=== PATIENT | female | born 1945 ===

== ENCOUNTER 2018-03-30 14:41 | Inpatient (IN) | payer MEDICARE ==
--- NOTE | 2018-03-30 17:11 | RAD ---
HISTORY: fall COMPARISON: 02/11/2010 FINDINGS: LUNGS: No active pulmonary disease. PLEURA: No significant pleural effusion identified, no pneumothorax apparent. CARDIOVASCULAR: Normal. OSSEOUS STRUCTURES: No significant abnormalities. VISUALIZED UPPER ABDOMEN: Normal. OTHER FINDINGS: None. IMPRESSION: No active disease.
--- NOTE | 2018-03-30 17:13 | CT ---
PROCEDURE: CT HEAD WITHOUT CONTRAST. HISTORY: fall COMPARISON: None available. TECHNIQUE: Axial computed tomography images were obtained through the head/brain without intravenous contrast. Radiation dose: Total exam DLP = 892.77 mGy-cm. This CT exam was performed using one or more of the following dose reduction techniques: Automated exposure control, adjustment of the mA and/or kV according to patient size, and/or use of iterative reconstruction technique. FINDINGS: HEMORRHAGE: No intracranial hemorrhage. BRAIN: No mass effect or edema. No atrophy or chronic microvascular ischemic changes. VENTRICLES: Unremarkable. No hydrocephalus. CALVARIUM: Unremarkable. PARANASAL SINUSES: Unremarkable as visualized. No significant inflammatory changes. MASTOID AIR CELLS: Unremarkable as visualized. No inflammatory changes. OTHER FINDINGS: None. IMPRESSION: No acute intracranial hemorrhage.
[2018-03-30 18:21] LABS: BASO # 0.1 K/uL (0.0-0.2); BASO % 0.7 % (0.0-2.0); EOS % 0.1 % (0.0-4.0); HEMOGLOBIN 9.9 g/dL (12.0-16.0); LYMPH # 1.1 K/uL (1.0-4.3); LYMPH % 6.8 % (20.0-40.0); MEAN CORPUSCULAR HEMOGLOBIN 26.9 pg (27.0-31.0); MEAN CORPUSCULAR HGB CONC 32.4 g/dL (33.0-37.0); MEAN PLATELET VOLUME 7.8 fl (7.2-11.7); MONO # 1.2 K/uL (0.0-0.8); MONO % 7.5 % (0.0-10.0); NEUT # 13.9 K/uL (1.8-7.0); NEUT % 84.9 % (50.0-75.0); PLATELET COUNT 442 K/uL (130-400); RBC 3.67 Mil/uL (3.80-5.20); WHITE BLOOD COUNT 16.4 K/uL (4.8-10.8)
[2018-03-30 18:24] LABS: VENOUS BLOOD GAS BASE EXCESS -18.5 mmol/L (0.0-2.0); VENOUS BLOOD GAS PCO2 93 mmHg (40-60); VENOUS BLOOD GAS PO2 39 mm/Hg (30-55); VENOUS BLOOD PH 6.86 (7.32-7.43)
[2018-03-30] MEDS ORDERED: Piperacillin/Tazobact 3.375 GM in Sodium Chloride 0.9% 100 ML IVPB STA (18:30)
[2018-03-30] MEDS ORDERED: Sodium Chloride 0.9% 2,000 ML IV STA (18:30)
[2018-03-30] MEDS ORDERED: Piperacillin/Tazobact 3.375 gm Inj IVPB ONE ×2 (18:35→22:46)
[2018-03-30] MEDS ORDERED: Vancomycin 1 g Inj ONE ×2 (18:35→21:11)
--- NOTE | 2018-03-30 18:47 | ED PDOC ---
Lower Extremity Pain/Injury Time Seen by Provider: 03/30/18 15:16 Chief Complaint (Nursing): Lower Extremity Problem/Injury Chief Complaint (Provider): Right foot infection, fall History Per: Patient History/Exam Limitations: no limitations Onset/Duration Of Symptoms: Hrs Current Symptoms Are (Timing): Still Present Additional Complaint(s): 72 yo female with history of HTN and DM which she has not taken medication for in the last 8 months. Pt states she has been feeling well. Pt states she got up quick and her foot got caught on something resulting in a fall. Pt states she was unable to get up but her son came home approx 1 hour later. According to EMS pt had a lot of stuff in her home making it difficult to move in home. Pt reports that her foot has been bothering her for awhile. PT states last summer she was seen in a hospital and was going to rehab with wound care. Pt states it was going better but than she was not taking care of hit. Pt denies chest pain, SOB, abdominal pain, N/V/D. Past Medical History Reviewed: Historical Data, Nursing Documentation, Vital Signs Vital Signs: Last Vital Signs Temp 99 F 03/30/18 14:43 Pulse 118 H 03/30/18 14:43 Resp 16 03/30/18 14:43 BP 115/66 03/30/18 14:43 Pulse Ox 99 03/30/18 14:43 - Medical History PMH: Diabetes, HTN - Surgical History Surgical History: No Surg Hx - Family History Family History: States: No Known Family Hx - Living Arrangements Living Arrangements: With Family - Social History Current smoker - smoking cessation education provided: No Alcohol: None Drugs: Denies - Allergies Allergies/Adverse Reactions: Allergies Allergy/AdvReac Type Severity Reaction Status Date / Time No Known Allergies Allergy Verified 03/30/18 14:43 Review of Systems ROS Statement: Except As Marked, All Systems Reviewed And Found Negative Constitutional: Negative for: Fever, Chills Musculoskeletal: Positive for: Foot Pain (Bilateral, R > L ) Physical Exam - Reviewed Nursing Documentation Reviewed: Yes Vital Signs Reviewed: Yes - Physical Exam Appears: Positive for: Well, Non-toxic, No Acute Distress Head Exam: Positive for: ATRAUMATIC, NORMAL INSPECTION, NORMOCEPHALIC Skin: Positive for: Warm. Negative for: Normal Color Eye Exam: Positive for: Normal appearance ENT: Positive for: Normal ENT Inspection Neck: Positive for: Normal, Painless ROM Cardiovascular/Chest: Positive for: Regular Rate, Rhythm Respiratory: Positive for: Normal Breath Sounds. Negative for: Accessory Muscle Use, Respiratory Distress Gastrointestinal/Abdominal: Positive for: Normal Exam, Soft. Negative for: Tenderness Back: Positive for: Normal Inspection Extremity: Positive for: Normal ROM, Swelling (Bilateral lower leg edema with yellow plaques, (+) necrotic lesions on right foot approx 8cm in diameter x 2, and smaller one on the left foot ) Neurologic/Psych: Positive for: Alert, Oriented - Laboratory Results Result Diagrams: 03/30/18 18:18 03/30/18 18:18 - ECG O2 Sat by Pulse Oximetry: 99 Pulse Ox Interpretation: Normal Medical Decision Making Medical Decision Making: Abnormal VBG with elevated lactate, low sodium and metabolic acidosis. AccuCheck over 500. ABG ordered, blood cultures, mag, phosphorus - Dr. Fraire aware. Asprin ordered. ABG - Normal lactate. Podiatry at bedside. I/D of area. Would cultures obtained. Dr. Fraire will discussed with cardiology. Dr. Fraire discussed with Dr. Nuñez for ICU. Duplex pending. Disposition - Clinical Impression Clinical Impression: NSTEMI (non-ST elevated myocardial infarction), Gas gangrene, Uncontrolled diabetes mellitus, Sepsis - Patient ED Disposition Is Patient to be Admitted: Yes - Disposition Disposition Time: 20:49 Condition: FAIR Forms: [employer] ([place]) - Pt Status Changed To: Hospital Disposition Of: Inpatient - Admit Certification Admit to Inpatient:: After my assessment, the patient will require hospitalization for at least two midnights. This is because of the severity of symptoms shown, intensity of services needed, and/or the medical risk in this patient being treated as an outpatient. - POA Present On Arrival: None
[2018-03-30] MEDS ORDERED: Povidone Iodine Topical 10% Sol ONE (19:05)
[2018-03-30 19:06] LABS: ABG ALLEN TEST YES; ARTERIAL BLOOD GAS HCO3 26.7 mmol/L (21-28); ARTERIAL BLOOD GAS O2 SAT 97.9 % (95-98); ARTERIAL BLOOD GAS PCO2 37 mm/Hg (35-45); ARTERIAL BLOOD GAS PH 7.46 (7.35-7.45); ARTERIAL BLOOD GAS PO2 61 mm/Hg (80-100); ARTERIAL BLOOD GAS TCO2 27.4 mmol/L (22-28)
[2018-03-30 19:24] LABS: ALB/GLOB RATIO 0.7 (1.0-2.1); ALBUMIN 2.9 g/dL (3.5-5.0); ALT/SGPT 29 U/L (9-52); AST/SGOT 39 U/L (14-36); B-TYPE NATRIURETIC PEPTIDE 4740 pg/ml (0-900); BLOOD UREA NITROGEN 23 mg/dl (7-17); CALCIUM 8.8 mg/dL (8.4-10.2); GFR AFRICAN-AMERICAN > 60; GFR NON-AFRICAN AMERICAN > 60
[2018-03-30 19:38] LABS: LYMPHOCYTE 4 % (20-50); MONOCYTE 1 % (0-10); MYELOCYTE 2 % (0-0); NEUTROPHIL 91 % (42-75); REACTIVE LYMPHOCYTES 2 % (0-0); TOTAL CELLS COUNTED 100
[2018-03-30 19:40] LABS: HYPOCHROMIC SLIGHT; STOMATOCYTES SLIGHT
[2018-03-30] MEDS ORDERED: Insulin Regular 100 units/ml SC STA ×2 (19:40→21:53)
[2018-03-30] MEDS ORDERED: Insulin Regular 100 units/ml IVP STA (19:40)
[2018-03-30 19:41] LABS: PLATELET ESTIMATE NORMAL (NORMAL)
[2018-03-30] MEDS ORDERED: Insulin Regular 100 units/ml ONE ×2 (20:07→22:03)
--- NOTE | 2018-03-30 20:10 | CP.PCM.CON ---
History of Present Illness - History of Present Illness History of Present Illness: Podiatry Consult note: Dr. Smith 72 year old non-compliant female patient with PMHx of DM, and HTN was seen and evaluated at bedside for bilateral lower extremity erythema, edema and multiple wounds. Patient reports that she has always followed up at [facility] regarding to her lower extremities. Patient states that this time she fell in her house and was not able to get up; called the ambulance who brought her to [place]. Patient states that she was discharged from the rehab in [place] last year. Reports that her son was helping her dressing changes at home until that became a hassle for the son and stopped helping. Reports that she always had wounds on the feet but they have progressively gotten worst over time. Reports that she has not had any course of abx recently. Reports that she has not applied any dressing to her LE as well. Reports that her right foot causes her more pain than the left. Reports that the pain is more prominent when she walks on the bottom of the foot. Denies any pain during resting. Denies of having any recent F/N/V/C/SOB/CP/headache. No other pedal complains at this time. PMHx: DM, HTN PSHx: Denies Allergies: N.K.D.A SHx: Denies smoking, EtOH or illicit drug usage, lives home alone Meds: reports non-compliance with medications PMD: Dr. Holt Review of Systems - Constitutional Constitutional: As Per HPI Past Patient History - Past Social History Smoking Status: Never Smoked - CARDIAC Hx Hypertension: Yes - PSYCHIATRIC Hx Substance Use: No Meds Allergies/Adverse Reactions: Allergies Allergy/AdvReac Type Severity Reaction Status Date / Time No Known Allergies Allergy Verified 03/30/18 14:43 - Medications Medications: Current Medications Sodium Chloride (Sodium Chloride 0.9%) 2,000 mls @ 1,000 mls/hr IV .Q2H STA Stop: 03/30/18 20:29 Last Admin: 03/30/18 19:28 Dose: 1,000 mls/hr Physical Exam - Constitutional Appears: Well, Non-toxic, No Acute Distress - Extremities Exam Additional comments: Bilateral LE exam VASC: DP/PT pulses are non-palpable bilaterally, Cap refill time: < 3 sec to all digits, Temp gradient: warm to warm from proximal to distal (R>L), non- pitting edema noted extending from foot proximally to the mid leg level bilaterally DERM: Multiple wounds on bilateral lower extremity: severe malodor present from bilateral LE with hyperkeratotic sloughing of the skin which extends from mid leg distally to the feet bilaterally, erythema noted extending from mid leg to feet on bilateral LE (R>L) Right: Circular Necrotic wound measuring approx. 4.5 cm x 4.5 cm x 0.5 cm with sloughing of the soft tissue and fat pad atrophy noted at the base of the 1st metatarsal, macerated bullae on the medial aspect of the right 1st MTPJ that is fluctuant surrounded by thick hyperkeratotic skin sloughing, Second necrotic wound present at the plantar aspect of the right heel measuring approx 7.5 cm x 5.5 cm x 0.5 cm with gerber-wound erythema and epidermal layer sloughing on the lateral side, no active drainage from both the wounds, no purulence, no tunneling or tracking Left: Circular necrotic wound measuring approx 2.5 cm x 2.5 cm x 0.3 cm present on the plantar aspect of the 5th metatarsal head, no tunneling, no tracking, no undermining, no active drainage NEURO: Protective sensation grossly diminished ORTHO: mild pain on palpation of the wound and PROM of the hallux at the 1st MTPJ, diffuse pain on palpation of the plantar aspect of the foot b/l (R>L), no pain on palpation of the calf b/l - Neurological Exam Neurological exam: Alert, Oriented x3 - Psychiatric Exam Psychiatric exam: Normal Affect, Normal Mood Results - Vital Signs Recent Vital Signs: Last Vital Signs Temp 99 F 03/30/18 14:43 Pulse 118 H 03/30/18 14:43 Resp 16 03/30/18 14:43 BP 115/66 03/30/18 14:43 Pulse Ox 99 03/30/18 18:58 - Labs Result Diagrams: 03/30/18 18:18 03/30/18 18:18 Labs: Laboratory Results - last 24 hr 03/30/18 03/30/18 03/30/18 18:18 18:18 18:20 WBC 16.4 H RBC 3.67 L Hgb 9.9 L Hct 30.4 L MCV 83.0 MCH 26.9 L MCHC 32.4 L RDW 14.0 Plt Count 442 H MPV 7.8 Neut % (Auto) 84.9 H Lymph % (Auto) 6.8 L [place] % (Auto) 7.5 Eos % (Auto) 0.1 Baso % (Auto) 0.7 Neut # (Auto) 13.9 H Lymph # (Auto) 1.1 [place] # (Auto) 1.2 H Eos # (Auto) 0.0 Baso # (Auto) 0.1 Neutrophils % (Manual) 91 H Lymphocytes % (Manual) 4 L Reactive Lymphs % 2 H Monocytes % (Manual) 1 Myelocytes % 2 H Platelet Estimate Normal Hypochromasia (manual) Slight Stomatocytes Slight pCO2 pO2 39 HCO3 ABG pH ABG Total CO2 ABG O2 Saturation ABG Base Excess Reilly Test ABG Potassium VBG pH 6.86 L* VBG pCO2 93 H* VBG HCO3 8.8 VBG Total CO2 19.5 L VBG O2 Sat (Calc) 56.3 VBG Base Excess -18.5 L A-a O2 Difference Glucose 599 H* Lactate 3.0 H FiO2 21.0 Crit Value Called To Shama france Crit Value Called By [id number] Crit Value Read Back Y Blood Gas Notified Time 1824 Sodium 135 106.0 L* Potassium 4.6 Chloride 96 L 92.0 L Carbon Dioxide 24 Anion Gap 20 BUN 23 H Creatinine 0.6 L Est GFR ( Amer) > 60 Est GFR (Non-Af Amer) > 60 Random Glucose 573 H* Calcium 8.8 Phosphorus Magnesium Total Bilirubin 1.0 AST 39 H ALT 29 Alkaline Phosphatase 121 Total Creatine Kinase 744 H Troponin I 4.5500 H* NT-Pro-B Natriuret Pep 4740 H Total Protein 7.2 Albumin 2.9 L Globulin 4.3 H Albumin/Globulin Ratio 0.7 L Arterial Blood Potassium 03/30/18 03/30/18 18:38 18:45 WBC RBC Hgb Hct MCV MCH MCHC RDW Plt Count MPV Neut % (Auto) Lymph % (Auto) [place] % (Auto) Eos % (Auto) Baso % (Auto) Neut # (Auto) Lymph # (Auto) [place] # (Auto) Eos # (Auto) Baso # (Auto) Neutrophils % (Manual) Lymphocytes % (Manual) Reactive Lymphs % Monocytes % (Manual) Myelocytes % Platelet Estimate Hypochromasia (manual) Stomatocytes pCO2 37 pO2 61 L HCO3 26.7 ABG pH 7.46 H ABG Total CO2 27.4 ABG O2 Saturation 97.9 ABG Base Excess 2.5 Reilly Test Yes ABG Potassium 3.9 VBG pH VBG pCO2 VBG HCO3 VBG Total CO2 VBG O2 Sat (Calc) VBG Base Excess A-a O2 Difference 42.0 Glucose 588 H* Lactate 1.7 FiO2 21.0 Crit Value Called To Shama france Crit Value Called By [id number] Crit Value Read Back Y Blood Gas Notified Time 190 Sodium 133.0 Potassium Chloride 98.0 Carbon Dioxide Anion Gap BUN Creatinine Est GFR ( Amer) Est GFR (Non-Af Amer) Random Glucose Calcium Phosphorus 2.8 Magnesium 1.7 Total Bilirubin AST ALT Alkaline Phosphatase Total Creatine Kinase Troponin I NT-Pro-B Natriuret Pep Total Protein Albumin Globulin Albumin/Globulin Ratio Arterial Blood Potassium 3.9 Assessment & Plan - Assessment and Plan (Free Text) Assessment: 72 year old female patient with PMHx of DM, HTN was evaluated for 1). 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 multiple necrotic wounds b/l LE 3). Cellulitis Plan: Patient seen and evaluated Discussed patient in details with attending Dr. Smith Labs, vitals and charts reviewed - afebrile, tachycardic, WBC @ 16.4 X-rays of the bilateral LE ordered/reviewed - Diffuse radiolucency on the medial aspect of the 1st MTPJ of the right foot within the soft tissue consistent with soft tissue emphysema Bedside I&D performed - Evacuated approx 15cc of purulent drainage from the medial aspect of the 1st MTPJ; severe malodor with bubbles during I&D - Flushed with saline infused with betadine Deep wound cultures taken Bilateral LE clenaed with betadine, saline Incision site left open and packed with idoform packing and dressed all wounds with betadine, DSD Vanc, zosyn in the ER Venous duplex - no evidence of DVT New foot and tib-fib views ordered s/p bedside I&D ESR ID consult - f/u recs Medical management as per Hospitalist Thank you for the podiatry consult and allowing to take part in patient care Podiatry will continue to monitor patient closely - plan for OR tomorrow/Sunday for I&D if condition worsens - Date & Time Date: 03/30/18 Time: 21:48
[2018-03-30] MEDS ORDERED: Enoxaparin 60 mg Syringe SC STA (20:59)
--- NOTE | 2018-03-30 21:06 | US ---
EXAM: US Duplex Bilateral Lower Extremity Veins CLINICAL HISTORY: 72 years old, female; Pain; Leg, lower; Bilateral; Additional info: Lower leg edema TECHNIQUE: Real-time duplex ultrasound scan of the bilateral lower extremity veins integrating B-mode two-dimensional vascular structure, Doppler spectral analysis, color flow Doppler imaging and compression. COMPARISON: No relevant prior studies available. FINDINGS: Right deep veins: No DVT in the right common femoral, femoral, proximal deep femoral or popliteal veins. The veins demonstrate normal flow. Study is limited, technologist states patient cannot tolerate compression and augmentation maneuvers. Left deep veins: No DVT in the left common femoral, femoral, proximal deep femoral or popliteal veins. The veins demonstrate normal flow. Study is limited, technologist states patient cannot tolerate compression and augmentation maneuvers. Soft tissues: No acute findings. IMPRESSION: No evidence of deep venous thrombosis in the visualized veins of the bilateral lower extremities. The veins demonstrate patent venous flow. Study is limited, technologist states patient cannot tolerate compression and augmentation maneuvers.
--- NOTE | 2018-03-30 21:20 | CP.PCM.CON ---
History of Present Illness - History of Present Illness History of Present Illness: CC: Fall/ICU for sepsis/BLE gangrene/Elevated trop HPI: This is a 72 y/o female with DM2 and HTN who is not taking any medications. She had a mechanical fall today, and was unable to get up and when her son came, then called EMS. Did not hit her head or lose consciousness. Patient notes that she had issues with foot wounds in the past and was in the hospital last summer, but since discharge has not been following up with her medical care. Denies CP/SOB. Denies f/c/n/v/d. ROS: 14 systems reviewed, negative other than HPI MHx: DM2, HTN SHx: None Allergies: NKDA Medications: None Family Hx: Patient states no significant history as far as she knows Social Hx: Lives along but son is there often, no tobacco, no EtOH Surrogate: Son Past Patient History - Past Social History Alcohol: None Drugs: Denies - CARDIAC Hx Hypertension: Yes - PSYCHIATRIC Hx Substance Use: No Meds Allergies/Adverse Reactions: Allergies Allergy/AdvReac Type Severity Reaction Status Date / Time No Known Allergies Allergy Verified 03/30/18 14:43 - Medications Medications: Current Medications Acetaminophen (Tylenol 325mg Tab) 650 mg PO Q6H PRN PRN Reason: Pain, Mild (1-3) Acetaminophen (Tylenol 325mg Tab) 650 mg PO Q6H PRN PRN Reason: Fever >100.4 F Aspirin (Aspirin) 325 mg PO DAILY SARAH Atorvastatin Calcium (Lipitor) 40 mg PO DAILY [facility] Piperacillin Sod/Tazobactam (Sod 3.375 gm/ Sodium Chloride) 100 mls @ 100 mls/ hr IVPB Q6 SARAH PRN Reason: Protocol Vancomycin HCl 1 gm/ Sodium (Chloride) 250 mls @ 166.667 mls/hr IVPB Q12 SARAH PRN Reason: Protocol Insulin Detemir (Levemir) 10 units SC HS SARAH Insulin Human Lispro (Humalog) 0 units SC ACHS SARAH PRN Reason: Protocol Metoprolol Tartrate (Lopressor) 25 mg PO Q12 SARAH Physical Exam - Constitutional Appears: No Acute Distress - Head Exam Head Exam: ATRAUMATIC, NORMOCEPHALIC - Eye Exam Eye Exam: EOMI, PERRL - ENT Exam ENT Exam: Mucous Membranes Moist - Neck Exam Neck exam: Positive for: Full Rom - Respiratory Exam Respiratory Exam: Clear to Auscultation Bilateral, NORMAL BREATHING PATTERN - Cardiovascular Exam Cardiovascular Exam: Tachycardia, REGULAR RHYTHM, +S1, +S2, Systolic Murmur - GI/Abdominal Exam GI & Abdominal Exam: Normal Bowel Sounds, Soft - Extremities Exam Additional comments: b/l LE with dry gangrene and gas per report, now under dressing; appear edemetous - Neurological Exam Neurological exam: Alert, CN II-XII Intact, Oriented x3 - Psychiatric Exam Psychiatric exam: Normal Affect, Normal Mood - Skin Additional comments: Skin changes in b/l LE as noted Results - Vital Signs Recent Vital Signs: Last Vital Signs Temp 99 F 03/30/18 14:43 Pulse 88 03/30/18 20:25 Resp 16 03/30/18 14:43 BP 115/66 03/30/18 14:43 Pulse Ox 99 03/30/18 20:49 - Labs Result Diagrams: 03/30/18 18:18 03/30/18 18:18 Labs: Laboratory Results - last 24 hr 03/30/18 03/30/18 03/30/18 18:18 18:18 18:20 WBC 16.4 H RBC 3.67 L Hgb 9.9 L Hct 30.4 L MCV 83.0 MCH 26.9 L MCHC 32.4 L RDW 14.0 Plt Count 442 H MPV 7.8 Neut % (Auto) 84.9 H Lymph % (Auto) 6.8 L [place] % (Auto) 7.5 Eos % (Auto) 0.1 Baso % (Auto) 0.7 Neut # (Auto) 13.9 H Lymph # (Auto) 1.1 [place] # (Auto) 1.2 H Eos # (Auto) 0.0 Baso # (Auto) 0.1 Neutrophils % (Manual) 91 H Lymphocytes % (Manual) 4 L Reactive Lymphs % 2 H Monocytes % (Manual) 1 Myelocytes % 2 H Platelet Estimate Normal Hypochromasia (manual) Slight Stomatocytes Slight pCO2 pO2 39 HCO3 ABG pH ABG Total CO2 ABG O2 Saturation ABG Base Excess Reilly Test ABG Potassium VBG pH 6.86 L* VBG pCO2 93 H* VBG HCO3 8.8 VBG Total CO2 19.5 L VBG O2 Sat (Calc) 56.3 VBG Base Excess -18.5 L A-a O2 Difference Glucose 599 H* Lactate 3.0 H FiO2 21.0 Crit Value Called To Shama france Crit Value Called By [id number] Crit Value Read Back Y Blood Gas Notified Time 182 Sodium 135 106.0 L* Potassium 4.6 Chloride 96 L 92.0 L Carbon Dioxide 24 Anion Gap 20 BUN 23 H Creatinine 0.6 L Est GFR ( Amer) > 60 Est GFR (Non-Af Amer) > 60 Random Glucose 573 H* Calcium 8.8 Phosphorus Magnesium Total Bilirubin 1.0 AST 39 H ALT 29 Alkaline Phosphatase 121 Total Creatine Kinase 744 H Troponin I 4.5500 H* NT-Pro-B Natriuret Pep 4740 H Total Protein 7.2 Albumin 2.9 L Globulin 4.3 H Albumin/Globulin Ratio 0.7 L Arterial Blood Potassium 03/30/18 03/30/18 18:38 18:45 WBC RBC Hgb Hct MCV MCH MCHC RDW Plt Count MPV Neut % (Auto) Lymph % (Auto) [place] % (Auto) Eos % (Auto) Baso % (Auto) Neut # (Auto) Lymph # (Auto) [place] # (Auto) Eos # (Auto) Baso # (Auto) Neutrophils % (Manual) Lymphocytes % (Manual) Reactive Lymphs % Monocytes % (Manual) Myelocytes % Platelet Estimate Hypochromasia (manual) Stomatocytes pCO2 37 pO2 61 L HCO3 26.7 ABG pH 7.46 H ABG Total CO2 27.4 ABG O2 Saturation 97.9 ABG Base Excess 2.5 Reilly Test Yes ABG Potassium 3.9 VBG pH VBG pCO2 VBG HCO3 VBG Total CO2 VBG O2 Sat (Calc) VBG Base Excess A-a O2 Difference 42.0 Glucose 588 H* Lactate 1.7 FiO2 21.0 Crit Value Called To Shama france Crit Value Called By [id number] Crit Value Read Back Y Blood Gas Notified Time 190 Sodium 133.0 Potassium Chloride 98.0 Carbon Dioxide Anion Gap BUN Creatinine Est GFR ( Amer) Est GFR (Non-Af Amer) Random Glucose Calcium Phosphorus 2.8 Magnesium 1.7 Total Bilirubin AST ALT Alkaline Phosphatase Total Creatine Kinase Troponin I NT-Pro-B Natriuret Pep Total Protein Albumin Globulin Albumin/Globulin Ratio Arterial Blood Potassium 3.9 - EKG Data EKG Interpreted by: Myself EKG shows normal: Sinus rhythm Rate: Normal - EKG Data EKG comments: no TENZIN or STD - Imaging and Cardiology CT scan - head Status: Image reviewed by me (no acute findings), Report reviewed by me Chest x-ray Status: Image reviewed by me, Report reviewed by me (no acute findings) Venous US Status: Report reviewed by me (no DVT) Assessment & Plan (1) Foot infection Assessment and Plan: 72 y/o female with HTN and DM2 and poor medical f/u who presents with b/l LE infection/dry gangrene/sepsis as well as elevated troponins. 1) b/l LE infection/gangrene/sepsis -Cont Vanc and Zosyn -Seen by podiatry, I&D done, cultures sent, possible OR in AM; will keep NPO after MN -f/u cultures -ESR in AM -ID consult in AM 2) Elevated trop -- per cardiology, not treating as NSTEMI -Trend trop q8h x3 -EKG in AM -Echo in AM -Cont ASA 325 daily, will start Lipitor 40 mg daily, will start metoprolol 25 mg q12h -Received 50 mg Lovenox subq x1 in ER; will hold further lovenox given possibility of OR in AM -Will hold Plavix for now -Cardiology consult to see patient in AM 3) DM2, poorly controlled -q6h accuchecks -SSI -Will start low dose (10 U) levemir tonight given very elevated gluc -DM2 diet tonight, then NPO after MN 4) DVT PPx -- received Lovenox tonight, re-assess based on plan for OR in AM Status: Acute (2) Gas gangrene Status: Acute (3) Sepsis Status: Acute (4) Elevated troponin Status: Acute (5) Uncontrolled diabetes mellitus Status: Acute (6) DVT prophylaxis Status: Acute
[2018-03-30] MEDS ORDERED: Iodixanol 320 MG/ML 100 ML BOTTLE IV ONE (21:31)
[2018-03-30] MEDS ORDERED: Sodium Chloride 0.9% 50 ML IV ONE (21:32)
[2018-03-30] MEDS: Piperacillin/Tazobact 3.375 GM in Sodium Chloride 0.9% 100 ML IVPB SCH (22:00)
[2018-03-30] MEDS ORDERED: Insulin Detemir 100 Units/ml Inj SC SCH (22:00)
[2018-03-30] MEDS: Insulin Lispro (humaLOG) 100 Units/ml Inj SC SCH (23:00)
--- NOTE | 2018-03-30 23:57 | CT ---
EXAM: CT Angiography Chest With Intravenous Contrast EXAM DATE/TIME: 03/30/2018 8:50 PM CLINICAL HISTORY: 72 years old, female; Signs and symptoms; Other: R/O pe; Additional info: Tachycardia leg swelling R/O pe TECHNIQUE: Axial computed tomographic angiography images of the chest with intravenous contrast using pulmonary embolism protocol. All CT scans at this facility use one or more dose reduction techniques, viz.: automated exposure control; ma/kV adjustment per patient size (including targeted exams where dose is matched to indication; i.e. head); or iterative reconstruction technique. MIP reconstructed images were created and reviewed. Coronal and sagittal reformatted images were created and reviewed. CONTRAST: 95 mL of [id number] administered intravenously. COMPARISON: CR - CHEST PORTABLE 2018-03-30 16:05 FINDINGS: There is a small filling defect in an upper lobe branch of the right pulmonary artery on series 4 image 70. Although this is an area where there is frequently artifact, the defect persists on other series (series 604, image 45) and is felt to represent a tiny emboli. The vessels are well-perfused distal to the defect. There is a punctate area of low attenuation in a lower lobe branch of the right pulmonary artery on image 143 series 4 that occurs at a branching point, felt to be artifactual. No aortic dissection or aneurysm. No pleural or pericardial effussions. Minimal bibasilar atelectatic changes. Cholecystectomy clips are present. Trace bilateral perinephric stranding. There is mild bilateral adrenal gland thickening. Small splenic calcifications are present. IMPRESSION: Small emboli upper lobe branch of the right pulmonary artery with vessels well perfused distally.
[2018-03-31 05:24] LABS: HEMOGLOBIN 9.3 g/dL (12.0-16.0); MEAN CELL VOLUME 82.2 fl (81.0-99.0); MEAN CORPUSCULAR HEMOGLOBIN 26.8 pg (27.0-31.0); MEAN CORPUSCULAR HGB CONC 32.6 g/dL (33.0-37.0); PLATELET COUNT 395 K/uL (130-400); RBC 3.46 Mil/uL (3.80-5.20); RED CELL DISTRIBUTION WIDTH 13.6 % (11.5-14.5); WHITE BLOOD COUNT 15.5 K/uL (4.8-10.8)
[2018-03-31 05:36] LABS: BLOOD UREA NITROGEN 21 mg/dl (7-17); CALCIUM 8.8 mg/dL (8.4-10.2); GFR AFRICAN-AMERICAN > 60; GFR NON-AFRICAN AMERICAN > 60
[2018-03-31] MEDS: Insulin Lispro (humaLOG) 100 Units/ml Inj SC SCH ×5 (06:39→22:08)
--- NOTE | 2018-03-31 07:23 | CP.PCM.CON ---
History of Present Illness - History of Present Illness History of Present Illness: 72 year old female patient with PMHx of DM, HTN was evaluated for 1). 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 multiple necrotic wounds b/l LE 3). Cellulitis Cardiology called for elevated Troponin EKG: normal sinus rhythm Pt denies chest pain or any cardiac Hx Past Patient History - Past Social History Smoking Status: Former Smoker - CARDIAC Hx Cardiac Disorders: Yes Hx Hypertension: Yes - PULMONARY Hx Respiratory Disorders: Yes Hx Asthma: Yes - NEUROLOGICAL Hx Neurological Disorder: No - HEENT Hx HEENT Problems: Yes Other/Comment: Uses eye glasses. - RENAL Hx Chronic Kidney Disease: No - ENDOCRINE/METABOLIC Hx Endocrine Disorders: Yes Hx Diabetes Mellitus Type 2: Yes - HEMATOLOGICAL/ONCOLOGICAL Hx Blood Disorders: No - INTEGUMENTARY Other/Comment: Scaly bilateral lower legs. - MUSCULOSKELETAL/RHEUMATOLOGICAL Hx Musculoskeletal Disorders: Yes Hx Falls: Yes Hx Unsteady Gait: Yes - GASTROINTESTINAL Hx Gastrointestinal Disorders: No - GENITOURINARY/GYNECOLOGICAL Hx Genitourinary Disorders: No - PSYCHIATRIC Hx Psychophysiologic Disorder: No Hx Substance Use: No - SURGICAL HISTORY Hx Surgeries: No - ANESTHESIA Hx Anesthesia: No Hx Anesthesia Reactions: No Hx Malignant Hyperthermia: No Has any member of the family had a problem w/ anesthesia?: No Meds Allergies/Adverse Reactions: Allergies Allergy/AdvReac Type Severity Reaction Status Date / Time No Known Allergies Allergy Verified 03/30/18 14:43 - Medications Medications: Current Medications Acetaminophen (Tylenol 325mg Tab) 650 mg PO Q6H PRN PRN Reason: Pain, Mild (1-3) Acetaminophen (Tylenol 325mg Tab) 650 mg PO Q6H PRN PRN Reason: Fever >100.4 F Aspirin (Aspirin) 325 mg PO DAILY [facility] Atorvastatin Calcium (Lipitor) 40 mg PO DAILY [facility] Piperacillin Sod/Tazobactam (Sod 3.375 gm/ Sodium Chloride) 100 mls @ 100 mls/ hr IVPB Q6 SARAH PRN Reason: Protocol Last Admin: 03/30/18 22:00 Dose: 100 mls/hr Vancomycin HCl 1 gm/ Sodium (Chloride) 250 mls @ 166.667 mls/hr IVPB Q12 SARAH PRN Reason: Protocol Last Admin: 03/30/18 21:40 Dose: 166.667 mls/hr Insulin Detemir (Levemir) 10 units SC [facility] Last Admin: 03/30/18 22:40 Dose: 10 units Insulin Human Lispro (Humalog) 0 units SC [facility] PRN Reason: Protocol Last Admin: 03/31/18 06:39 Dose: Not Given Metoprolol Tartrate (Lopressor) 25 mg PO Q12 [facility] Last Admin: 03/30/18 22:39 Dose: 25 mg Results - Vital Signs Recent Vital Signs: Last Vital Signs Temp 98.6 F 03/31/18 04:00 Pulse 92 H 03/31/18 06:00 Resp 23 03/31/18 06:00 BP 123/57 L 03/31/18 06:00 Pulse Ox 99 03/31/18 06:00 - Labs Result Diagrams: 04/01/18 04:40 04/01/18 04:40 Labs: Laboratory Results - last 24 hr 03/30/18 03/30/18 03/30/18 18:18 18:18 18:20 WBC 16.4 H RBC 3.67 L Hgb 9.9 L Hct 30.4 L MCV 83.0 MCH 26.9 L MCHC 32.4 L RDW 14.0 Plt Count 442 H MPV 7.8 Neut % (Auto) 84.9 H Lymph % (Auto) 6.8 L [place] % (Auto) 7.5 Eos % (Auto) 0.1 Baso % (Auto) 0.7 Neut # (Auto) 13.9 H Lymph # (Auto) 1.1 [place] # (Auto) 1.2 H Eos # (Auto) 0.0 Baso # (Auto) 0.1 Neutrophils % (Manual) 91 H Lymphocytes % (Manual) 4 L Reactive Lymphs % 2 H Monocytes % (Manual) 1 Myelocytes % 2 H Platelet Estimate Normal Hypochromasia (manual) Slight Stomatocytes Slight ESR pCO2 pO2 39 HCO3 ABG pH ABG Total CO2 ABG O2 Saturation ABG Base Excess Reilly Test ABG Potassium VBG pH 6.86 L* VBG pCO2 93 H* VBG HCO3 8.8 VBG Total CO2 19.5 L VBG O2 Sat (Calc) 56.3 VBG Base Excess -18.5 L A-a O2 Difference Glucose 599 H* Lactate 3.0 H FiO2 21.0 Crit Value Called To Shama france Crit Value Called By 6075 Crit Value Read Back Y Blood Gas Notified Time 1824 Sodium 135 106.0 L* Potassium 4.6 Chloride 96 L 92.0 L Carbon Dioxide 24 Anion Gap 20 BUN 23 H Creatinine 0.6 L Est GFR ( Amer) > 60 Est GFR (Non-Af Amer) > 60 POC Glucose (mg/dL) Random Glucose 573 H* Calcium 8.8 Phosphorus Magnesium Total Bilirubin 1.0 AST 39 H ALT 29 Alkaline Phosphatase 121 Total Creatine Kinase 744 H Troponin I 4.5500 H* NT-Pro-B Natriuret Pep 4740 H Total Protein 7.2 Albumin 2.9 L Globulin 4.3 H Albumin/Globulin Ratio 0.7 L Arterial Blood Potassium 03/30/18 03/30/18 03/30/18 18:28 18:38 18:45 WBC RBC Hgb Hct MCV MCH MCHC RDW Plt Count MPV Neut % (Auto) Lymph % (Auto) [place] % (Auto) Eos % (Auto) Baso % (Auto) Neut # (Auto) Lymph # (Auto) [place] # (Auto) Eos # (Auto) Baso # (Auto) Neutrophils % (Manual) Lymphocytes % (Manual) Reactive Lymphs % Monocytes % (Manual) Myelocytes % Platelet Estimate Hypochromasia (manual) Stomatocytes ESR pCO2 37 pO2 61 L HCO3 26.7 ABG pH 7.46 H ABG Total CO2 27.4 ABG O2 Saturation 97.9 ABG Base Excess 2.5 Reilly Test Yes ABG Potassium 3.9 VBG pH VBG pCO2 VBG HCO3 VBG Total CO2 VBG O2 Sat (Calc) VBG Base Excess A-a O2 Difference 42.0 Glucose 588 H* Lactate 1.7 FiO2 21.0 Crit Value Called To Shama france Crit Value Called By 6007 Crit Value Read Back Y Blood Gas Notified Time 190 Sodium 133.0 Potassium Chloride 98.0 Carbon Dioxide Anion Gap BUN Creatinine Est GFR ( Amer) Est GFR (Non-Af Amer) POC Glucose (mg/dL) > 500 H* Random Glucose Calcium Phosphorus 2.8 Magnesium 1.7 Total Bilirubin AST ALT Alkaline Phosphatase Total Creatine Kinase Troponin I NT-Pro-B Natriuret Pep Total Protein Albumin Globulin Albumin/Globulin Ratio Arterial Blood Potassium 3.9 03/30/18 03/30/18 03/31/18 21:47 22:46 00:28 WBC RBC Hgb Hct MCV MCH MCHC RDW Plt Count MPV Neut % (Auto) Lymph % (Auto) [place] % (Auto) Eos % (Auto) Baso % (Auto) Neut # (Auto) Lymph # (Auto) [place] # (Auto) Eos # (Auto) Baso # (Auto) Neutrophils % (Manual) Lymphocytes % (Manual) Reactive Lymphs % Monocytes % (Manual) Myelocytes % Platelet Estimate Hypochromasia (manual) Stomatocytes ESR pCO2 pO2 HCO3 ABG pH ABG Total CO2 ABG O2 Saturation ABG Base Excess Reilly Test ABG Potassium VBG pH VBG pCO2 VBG HCO3 VBG Total CO2 VBG O2 Sat (Calc) VBG Base Excess A-a O2 Difference Glucose Lactate FiO2 Crit Value Called To Crit Value Called By Crit Value Read Back Blood Gas Notified Time Sodium Potassium Chloride Carbon Dioxide Anion Gap BUN Creatinine Est GFR ( Amer) Est GFR (Non-Af Amer) POC Glucose (mg/dL) 431 H* 393 H Random Glucose Calcium Phosphorus Magnesium Total Bilirubin AST ALT Alkaline Phosphatase Total Creatine Kinase Troponin I 5.4200 H* NT-Pro-B Natriuret Pep Total Protein Albumin Globulin Albumin/Globulin Ratio Arterial Blood Potassium 03/31/18 03/31/18 03/31/18 04:17 04:17 06:31 WBC 15.5 H RBC 3.46 L Hgb 9.3 L Hct 28.5 L MCV 82.2 MCH 26.8 L MCHC 32.6 L RDW 13.6 Plt Count 395 MPV Neut % (Auto) Lymph % (Auto) [place] % (Auto) Eos % (Auto) Baso % (Auto) Neut # (Auto) Lymph # (Auto) [place] # (Auto) Eos # (Auto) Baso # (Auto) Neutrophils % (Manual) Lymphocytes % (Manual) Reactive Lymphs % Monocytes % (Manual) Myelocytes % Platelet Estimate Hypochromasia (manual) Stomatocytes ESR > 120 H pCO2 pO2 HCO3 ABG pH ABG Total CO2 ABG O2 Saturation ABG Base Excess Reilly Test ABG Potassium VBG pH VBG pCO2 VBG HCO3 VBG Total CO2 VBG O2 Sat (Calc) VBG Base Excess A-a O2 Difference Glucose Lactate FiO2 Crit Value Called To Crit Value Called By Crit Value Read Back Blood Gas Notified Time Sodium 139 Potassium 3.7 Chloride 101 Carbon Dioxide 26 Anion Gap 16 BUN 21 H Creatinine 0.6 L Est GFR ( Amer) > 60 Est GFR (Non-Af Amer) > 60 POC Glucose (mg/dL) 84 Random Glucose 112 H Calcium 8.8 Phosphorus Magnesium Total Bilirubin AST ALT Alkaline Phosphatase Total Creatine Kinase Troponin I NT-Pro-B Natriuret Pep Total Protein Albumin Globulin Albumin/Globulin Ratio Arterial Blood Potassium Assessment & Plan (1) Elevated troponin Assessment and Plan: Most likely secondary to Gangrene/sepsis/cellulitis Status: Acute (2) Gas gangrene Status: Acute (3) Sepsis Status: Acute (4) Uncontrolled diabetes mellitus Status: Acute
[2018-03-31] MEDS: Piperacillin/Tazobact 3.375 GM in Sodium Chloride 0.9% 100 ML IVPB SCH ×3 (09:16→21:06)
[2018-03-31] MEDS ORDERED: Iodoform 1/4inx15ft BOT EXT ONE (13:22)
[2018-03-31] MEDS ORDERED: Povidone Iodine Topical 10% Sol ONE (13:23)
--- NOTE | 2018-03-31 13:49 | CP.PCM.PN ---
Subjective - Date & Time of Evaluation Date of Evaluation: 03/31/18 Time of Evaluation: 13:46 - Subjective Subjective: Podiatry Progress note: Dr. Smith 72 year old female patient was evaluated at bedside in ICU for gas gangrene of RLE and bilateral lower extremity cellulitis with multiple wounds. Patient is AAOx3 and appears to be resting comfortably in bed. Son at bedside. Dressing to b/l LE clean, dry and intact. Denies acute overnight events. Reports she is tolerating pain with medications. No new pedal complains at this time. No overnight F/N/V/C/SOB. Objective - Vital Signs/Intake and Output Vital Signs (last 24 hours): Temp Pulse Resp BP Pulse Ox 98.8 F 86 24 111/54 L 94 L 03/31/18 12:00 03/31/18 12:00 03/31/18 12:00 03/31/18 12:00 03/31/18 12:00 Intake and Output: 03/31/18 03/31/18 06:59 18:59 Intake Total 490 Output Total 100 Balance 390 - Medications Medications: Current Medications Acetaminophen (Tylenol 325mg Tab) 650 mg PO Q6H PRN PRN Reason: Pain, Mild (1-3) Last Admin: 03/31/18 07:44 Dose: 650 mg Acetaminophen (Tylenol 325mg Tab) 650 mg PO Q6H PRN PRN Reason: Fever >100.4 F Aspirin (Aspirin) 325 mg PO DAILY [facility] Last Admin: 03/31/18 09:12 Dose: 325 mg Atorvastatin Calcium (Lipitor) 40 mg PO DAILY [facility] Last Admin: 03/31/18 09:13 Dose: 40 mg Piperacillin Sod/Tazobactam (Sod 3.375 gm/ Sodium Chloride) 100 mls @ 100 mls/ hr IVPB Q6 SARAH PRN Reason: Protocol Last Admin: 03/31/18 09:16 Dose: 100 mls/hr Vancomycin HCl 1 gm/ Sodium (Chloride) 250 mls @ 166.667 mls/hr IVPB Q12 SARAH PRN Reason: Protocol Last Admin: 03/31/18 09:15 Dose: 166.667 mls/hr Heparin Sodium/Dextrose (Heparin 25,000 Units/250ml In D5w) 25,000 units in 250 mls @ 10 mls/hr IV .Q24H SARAH PRN Reason: Protocol Insulin Detemir (Levemir) 10 units SC HS [facility] Last Admin: 03/30/18 22:40 Dose: 10 units Insulin Human Lispro (Humalog) 0 units SC [facility] PRN Reason: Protocol Last Admin: 03/31/18 12:13 Dose: 3 units Metoprolol Tartrate (Lopressor) 25 mg PO Q12 [facility] Last Admin: 03/31/18 09:13 Dose: 25 mg - Labs Labs: 03/31/18 04:17 03/31/18 04:17 - Constitutional Appears: Well, Non-toxic, No Acute Distress - Extremities Exam Additional comments: Bilateral LE exam VASC: DP/PT pulses are non-palpable bilaterally, Cap refill time: < 3 sec to all digits, Temp gradient: warm to warm from proximal to distal (R>L), non- pitting edema noted extending from foot proximally to the mid leg level bilaterally DERM: Multiple wounds on bilateral lower extremity: severe malodor present from bilateral LE with hyperkeratotic sloughing of the skin which extends from mid leg distally to the feet bilaterally, erythema noted extending from mid leg to feet on bilateral LE (R>L) Right: Circular Necrotic wound measuring approx. 4.5 cm x 4.5 cm x 0.5 cm with sloughing of the soft tissue and fat pad atrophy noted at the base of the 1st metatarsal, approx 3.5 cm incision noted on the medial aspect of the right 1st MTPJ which probes to bone, tissue deep to the incision site is necro-fibrotic with no active drainage, no purulence expressed from the incision site on palpation from all directions, Second necrotic wound present at the plantar aspect of the right heel measuring approx 7.5 cm x 5.5 cm x 0.5 cm with gerber- wound erythema and epidermal layer sloughing on the lateral side, no active drainage from both the wounds, no purulence, no tunneling or tracking Left: Circular necrotic wound measuring approx 2.5 cm x 2.5 cm x 0.3 cm present on the plantar aspect of the 5th metatarsal head, no tunneling, no tracking, no undermining, no active drainage NEURO: Protective sensation grossly diminished ORTHO: mild pain on palpation of the wound and PROM of the hallux at the 1st MTPJ, diffuse pain on palpation of the plantar aspect of the foot b/l (R>L), no pain on palpation of the calf b/l - Neurological Exam Neurological Exam: Alert, Awake, Oriented x3 - Psychiatric Exam Psychiatric exam: Normal Affect, Normal Mood Assessment and Plan - Assessment and Plan (Free Text) Assessment: 72 year old female patient with PMHx of DM, HTN was evaluated for 1). 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 multiple necrotic wounds b/l LE 3). Cellulitis Plan: Patient seen and evaluated Discussed patient in details with attending Dr. Smith Labs, vitals and charts reviewed - afebrile, tachycardia appears to be resolving over time, WBC @ 15.5 today - ESR @ > 120 Pre- bedside I&D X-rays of the bilateral LE ordered/reviewed - Diffuse radiolucency on the medial aspect of the 1st MTPJ of the right foot within the soft tissue consistent with soft tissue emphysema New foot and tib-fib x-rays - No signs of soft tissue emphysema Venous duplex - no evidence of DVT Flushed with saline and open incision packed with 1/4 inch iodoform packing; wounds dressed using betadine, DSD Deep wound cultures - Pending ID consult - f/u recs - Continue IV Zosyn & Vanco Vascular consult - Patient may benefit from BKA Medical management as per Hospitalist team Podiatry plans for I&D tomorrow - patient on add-on schedule - NPO starting midnight Podiatry will continue to monitor patient closely
--- NOTE | 2018-03-31 13:52 | RAD ---
PROCEDURE: Bilateral Feet Radiographs. HISTORY: lower leg edema COMPARISON: None. FINDINGS: BONES: Right Foot: No fracture. Plantar calcaneal spur. Left Foot: No fracture. Plantar calcaneal spur. JOINTS: Right Foot: Normal. No osteoarthritis. Left Foot: Normal. No osteoarthritis. SOFT TISSUES: Right Foot: Normal. Left Foot: Normal. OTHER FINDINGS: None. IMPRESSION: Bilateral small plantar calcaneal spur. No acute fracture.
--- NOTE | 2018-03-31 15:27 | RAD ---
PROCEDURE: Bilateral Feet Radiographs. HISTORY: repeat after I/D of foot COMPARISON: None. FINDINGS: BONES: Right Foot: Normal. No fracture. Left Foot: Normal. No fracture. JOINTS: Right Foot: Normal. No osteoarthritis. Left Foot: Normal. No osteoarthritis. SOFT TISSUES: Right Foot: Medial soft tissue swelling about hindfoot Left Foot: Medial soft tissue swelling about hindfoot OTHER FINDINGS: None. IMPRESSION: Normal radiographs of the feet.
--- NOTE | 2018-03-31 15:38 | RAD ---
PROCEDURE: Radiographs of the bilateral Tibiae and Fibulae. HISTORY: leg pain COMPARISON: None available. TECHNIQUE: Frontal and lateral views obtained. FINDINGS: BONES: RIGHT TIBIA: No fracture or destructive lesion. LEFT TIBIA: No fracture or destructive lesion. JOINT SPACES: RIGHT TIBIA: Normal. LEFT TIBIA: Normal. SOFT TISSUES: RIGHT TIBIA: Vascular calcification distally LEFT TIBIA: Vascular calcification distally OTHER FINDINGS: None. IMPRESSION: Unremarkable radiographs of the bilateral tibia and fibula.
[2018-03-31] MEDS: Heparin 25,000units in D5W 25,000 UNITS/250 ML BAG IV SCH (16:05)
--- NOTE | 2018-03-31 21:47 | CP.PCM.HP ---
History of Present Illness - History of Present Illness History of Present Illness: CC: Feet Ulcers and Fall History of Present Illness: A 72 y/o female with DM2 and HTN who is not taking any medications. She had a mechanical fall today, and was unable to get up and when her son came, then called EMS. Did not hit her head or lose consciousness. ICU admission was called when she was found to have gas gangrene of RLE, and bilateral lower extremity cellulitis with multiple wounds, and at Presentation patient was tachycardic and Blood work showed Lactic Acidosis and Leukocytosis meeting SIRS Criteria hence Sepsis Criteria Patient notes that she had issues with foot wounds in the past and was in the hospital last summer, but since discharge has not been following up with her medical care. Denies CP/SOB. Denies f/c/n/v/d. Present on Admission - Present on Admission Any Indicators Present on Admission: Yes History of Uncontrolled Diabetes: Yes Review of Systems - Review of Systems All systems: reviewed and no additional remarkable complaints except Past Patient History - Past Medical History & Family History Past Medical History?: Yes Past Family History: Reviewed and not pertinent - Past Social History Smoking Status: Former Smoker Alcohol: None Drugs: Denies - CARDIAC Hx Cardiac Disorders: Yes Hx Hypertension: Yes - PULMONARY Hx Respiratory Disorders: Yes Hx Asthma: Yes - NEUROLOGICAL Hx Neurological Disorder: No - HEENT Hx HEENT Problems: Yes Other/Comment: Uses eye glasses. - RENAL Hx Chronic Kidney Disease: No - ENDOCRINE/METABOLIC Hx Endocrine Disorders: Yes Hx Diabetes Mellitus Type 2: Yes - HEMATOLOGICAL/ONCOLOGICAL Hx Blood Disorders: No - INTEGUMENTARY Other/Comment: Scaly bilateral lower legs. - MUSCULOSKELETAL/RHEUMATOLOGICAL Hx Musculoskeletal Disorders: Yes Hx Falls: Yes Hx Unsteady Gait: Yes - GASTROINTESTINAL Hx Gastrointestinal Disorders: No - GENITOURINARY/GYNECOLOGICAL Hx Genitourinary Disorders: No - PSYCHIATRIC Hx Psychophysiologic Disorder: No Hx Substance Use: No - SURGICAL HISTORY Hx Surgeries: No - ANESTHESIA Hx Anesthesia: No Hx Anesthesia Reactions: No Hx Malignant Hyperthermia: No Has any member of the family had a problem w/ anesthesia?: No Meds Allergies/Adverse Reactions: Allergies Allergy/AdvReac Type Severity Reaction Status Date / Time No Known Allergies Allergy Verified 03/30/18 14:43 Physical Exam - Constitutional Appears: Well, No Acute Distress - Head Exam Head Exam: ATRAUMATIC, NORMAL INSPECTION, NORMOCEPHALIC - Eye Exam Eye Exam: EOMI, Normal appearance, PERRL Pupil Exam: NORMAL ACCOMODATION, PERRL - ENT Exam ENT Exam: Mucous Membranes Moist, Normal Exam - Neck Exam Neck exam: Positive for: Normal Inspection - Respiratory Exam Respiratory Exam: Clear to Auscultation Bilateral, NORMAL BREATHING PATTERN - Cardiovascular Exam Cardiovascular Exam: REGULAR RHYTHM, +S1, +S2 - GI/Abdominal Exam GI & Abdominal Exam: Normal Bowel Sounds, Soft. absent: Tenderness - Extremities Exam Additional comments: Bilateral LE exam VASC: DP/PT pulses are non-palpable bilaterally, Cap refill time: < 3 sec to all digits, Temp gradient: warm to warm from proximal to distal (R>L), non- pitting edema noted extending from foot proximally to the mid leg level bilaterally DERM: Multiple wounds on bilateral lower extremity: severe malodor present from bilateral LE with hyperkeratotic sloughing of the skin which extends from mid leg distally to the feet bilaterally, erythema noted extending from mid leg to feet on bilateral LE (R>L) Right: Circular Necrotic wound measuring approx. 4.5 cm x 4.5 cm x 0.5 cm with sloughing of the soft tissue and fat pad atrophy noted at the base of the 1st metatarsal, approx 3.5 cm incision noted on the medial aspect of the right 1st MTPJ which probes to bone, tissue deep to the incision site is necro-fibrotic with no active drainage, no purulence expressed from the incision site on palpation from all directions, Second necrotic wound present at the plantar aspect of the right heel measuring approx 7.5 cm x 5.5 cm x 0.5 cm with gerber- wound erythema and epidermal layer sloughing on the lateral side, no active drainage from both the wounds, no purulence, no tunneling or tracking Left: Circular necrotic wound measuring approx 2.5 cm x 2.5 cm x 0.3 cm present on the plantar aspect of the 5th metatarsal head, no tunneling, no tracking, no undermining, no active drainage - Back Exam Back exam: NORMAL INSPECTION. absent: CVA tenderness (L), CVA tenderness (R) - Neurological Exam Neurological exam: Alert, CN II-XII Intact, Normal Gait, Oriented x3, Reflexes Normal - Psychiatric Exam Psychiatric exam: Depressed - Skin Skin Exam: Dry, Intact, Normal Color, Warm Results - Vital Signs Recent Vital Signs: Last Vital Signs Temp 98.2 F 03/31/18 16:00 Pulse 76 03/31/18 17:59 Resp 19 03/31/18 17:59 BP 103/58 L 03/31/18 17:59 Pulse Ox 97 03/31/18 17:59 - Labs Result Diagrams: 04/03/18 00:17 04/02/18 04:20 Labs: Laboratory Results - last 24 hr 03/30/18 03/30/18 03/30/18 18:28 21:47 22:46 WBC RBC Hgb Hct MCV MCH MCHC RDW Plt Count ESR D-Dimer, Quantitative Sodium Potassium Chloride Carbon Dioxide Anion Gap BUN Creatinine Est GFR ( Amer) Est GFR (Non-Af Amer) POC Glucose (mg/dL) > 500 H* 431 H* 393 H Random Glucose Calcium Troponin I 03/31/18 03/31/18 03/31/18 00:28 04:17 04:17 WBC 15.5 H RBC 3.46 L Hgb 9.3 L Hct 28.5 L MCV 82.2 MCH 26.8 L MCHC 32.6 L RDW 13.6 Plt Count 395 ESR > 120 H D-Dimer, Quantitative Sodium 139 Potassium 3.7 Chloride 101 Carbon Dioxide 26 Anion Gap 16 BUN 21 H Creatinine 0.6 L Est GFR ( Amer) > 60 Est GFR (Non-Af Amer) > 60 POC Glucose (mg/dL) Random Glucose 112 H Calcium 8.8 Troponin I 5.4200 H* 03/31/18 03/31/18 03/31/18 06:31 08:25 10:47 WBC RBC Hgb Hct MCV MCH MCHC RDW Plt Count ESR D-Dimer, Quantitative Sodium Potassium Chloride Carbon Dioxide Anion Gap BUN Creatinine Est GFR ( Amer) Est GFR (Non-Af Amer) POC Glucose (mg/dL) 84 204 H Random Glucose Calcium Troponin I 5.2100 H* 03/31/18 03/31/18 03/31/18 13:18 16:43 21:07 WBC RBC Hgb Hct MCV MCH MCHC RDW Plt Count ESR D-Dimer, Quantitative 495 H Sodium Potassium Chloride Carbon Dioxide Anion Gap BUN Creatinine Est GFR ( Amer) Est GFR (Non-Af Amer) POC Glucose (mg/dL) 233 H 232 H Random Glucose Calcium Troponin I - Imaging and Cardiology CT Angio Chest: Status: Report reviewed by me Additional comment: CT Scan ANGIO CHEST PE PROTOCOL Exam Date: 03/30/18 This imaging exam was performed at [facility] ADDENDUM Addendum created by Lisset Soto MD on 03/31/2018 12:12:34 AM EDT Findings were discussed with . This report contains findings that may be critical for patient care. There is a tiny filling defect in a lower lobe branch of the right pulmonary artery, series 4 image 87, series 604 image 54 possibly representing a second tiny emboli. Initial report created on 03/30/2018 11:57:10 PM EDT EXAM: CT Angiography Chest With Intravenous Contrast EXAM DATE/TIME: 03/30/2018 8:50 PM CLINICAL HISTORY: 72 years old, female; Signs and symptoms; Other: R/O pe; Additional info: Tachycardia leg swelling R/O pe TECHNIQUE: Axial computed tomographic angiography images of the chest with intravenous contrast using pulmonary embolism protocol. All CT scans at this facility use one or more dose reduction techniques, viz.: automated exposure control; ma/kV adjustment per patient size (including targeted exams where dose is matched to indication; i.e. head); or iterative reconstruction technique. MIP reconstructed images were created and reviewed. Coronal and sagittal reformatted images were created and reviewed. CONTRAST: 95 mL of [id number] administered intravenously. COMPARISON: CR - CHEST PORTABLE 2018-03-30 16:05 FINDINGS: There is a small filling defect in an upper lobe branch of the right pulmonary artery on series 4 image 70. Although this is an area where there is frequently artifact, the defect persists on other series (series 604, image 45 ) and is felt to represent a tiny emboli. The vessels are well-perfused distal to the defect. There is a punctate area of low attenuation in a lower lobe branch of the right pulmonary artery on image 143 series 4 that occurs at a branching point, felt to be artifactual. No aortic dissection or aneurysm. No pleural or pericardial effussions. Minimal bibasilar atelectatic changes. Cholecystectomy clips are present. Trace bilateral perinephric stranding. There is mild bilateral adrenal gland thickening. Small splenic calcifications are present. IMPRESSION: Small emboli upper lobe branch of the right pulmonary artery with vessels well perfused distally. Addendum Dictated By: Lisset Soto MD Addendum Dictated Date Time:03/31/18 Addendum Signed by:Lisset Soto MD Addendum signed Date Time: 03/31/1811 Addendum Transcribed By: TAVIA Addendum Transcribed Date Time: 03/31/18 [id number] EXAM: CT Angiography Chest With Intravenous Contrast EXAM DATE/TIME: 03/30/2018 8:50 PM CLINICAL HISTORY: 72 years old, female; Signs and symptoms; Other: R/O pe; Additional info: Tachycardia leg swelling R/O pe TECHNIQUE: Axial computed tomographic angiography images of the chest with intravenous contrast using pulmonary embolism protocol. All CT scans at this facility use one or more dose reduction techniques, viz.: automated exposure control; ma/kV adjustment per patient size (including targeted exams where dose is matched to indication; i.e. head); or iterative reconstruction technique. MIP reconstructed images were created and reviewed. Coronal and sagittal reformatted images were created and reviewed. CONTRAST: 95 mL of [id number] administered intravenously. COMPARISON: CR - CHEST PORTABLE 2018-03-30 16:05 FINDINGS: There is a small filling defect in an upper lobe branch of the right pulmonary artery on series 4 image 70. Although this is an area where there is frequently artifact, the defect persists on other series (series 604, image 45 ) and is felt to represent a tiny emboli. The vessels are well-perfused distal to the defect. There is a punctate area of low attenuation in a lower lobe branch of the right pulmonary artery on image 143 series 4 that occurs at a branching point, felt to be artifactual. No aortic dissection or aneurysm. No pleural or pericardial effussions. Minimal bibasilar atelectatic changes. Cholecystectomy clips are present. Trace bilateral perinephric stranding. There is mild bilateral adrenal gland thickening. Small splenic calcifications are present. IMPRESSION: Small emboli upper lobe branch of the right pulmonary artery with vessels well perfused distally. Chest x-ray Status: Report reviewed by me Additional comment: No Active Disease CT scan - head Status: Report reviewed by me Additional comment: No ICH Assessment & Plan (1) Gas gangrene Assessment and Plan: Sepsis B/L Foot Infection Admit to ICU IVF IV VAnco and Zosy Vanco T/P [id number] dose Blog Writer and ID Onboard Wound and Blood Culture Monitor CBC with diff Status: Acute Priority: High (2) NSTEMI (non-ST elevated myocardial infarction) Assessment and Plan: Heparin Infusion ASA BB Cardiology Consult O2 Via NC Status: Acute Priority: High (3) Uncontrolled diabetes mellitus Status: Acute (4) Fall Status: Acute Priority: Medium (5) DVT prophylaxis Status: Acute
[2018-03-31] MEDS ORDERED: Hydrogen Peroxide 3% Soln (480ml) TP ONE (21:59)
[2018-03-31] MEDS ORDERED: Insulin Detemir 100 Units/ml Inj SC SCH (22:00)
--- NOTE | 2018-03-31 22:44 | CON ---
ENDOCRINOLOGY CONSULT DATE: LOCATION: In ICU 1, room 433. HISTORY OF PRESENT ILLNESS: This is a 72-year-old female with known history of type 2 diabetes and hypertension, currently off medications, presenting here with worsening right foot necrotic ulcers and evaluated to have gas gangrene in the same foot and is being referred now also for diabetic evaluation and management. PAST MEDICAL HISTORY: As mentioned above, history of type 2 diabetes and hypertension and off medications for over a year with no recent medical checkup, history of diabetic neuropathy and chronic lower leg edema with ulcers in both feet with no recent medical attention. FAMILY HISTORY: Positive for hypertension and diabetes. SOCIAL HISTORY: The patient has a supportive family. She has a previous history of smoking. REVIEW OF SYSTEMS: As mentioned above, admits to generalized body weakness with supervening dizziness and lightheadedness, worse on the day of admission. Also admits to easy fatigability and tiredness with hypersomnolence worse in the last few days prior to admission. Also admits to visual blurring and bifrontal headaches. No chest pains or palpitations or PND. Her oral intake has been variable with nausea, dyspepsia, and vague upper abdominal pains. Also admits to marked polyuria, nocturia, and polydipsia as noted. Moreover, admits to lower extremity paresthesias, especially nocturnally with increasing tenderness and pain in the right foot as noted. PHYSICAL EXAMINATION: GENERAL: This is an overweight female in no apparent distress. VITAL SIGNS: Blood pressure of 140/80, pulse of 100 beats per minute and regular, temperature 98, respirations 20, height is 5 feet 4 inches, and weight is 210 pounds. HEENT: Head is normocephalic. Eyes anicteric with pink conjunctivae. Funduscopy not possible at this time. Ears, nose and throat otherwise normal. NECK: Supple. Thyroid gland is normal in size. No carotid bruits or cervical adenopathy. CARDIOPULMONARY: Some adynamic precordium. S1 and S2 is rapid and regular. LUNGS: Clear to auscultation. ABDOMEN: Flat and soft with positive bowel sounds. EXTREMITIES: There is +2 bipedal edema with excoriations and hyperpigmentation in the distal lower extremities. There is also necrotic ulcerations in the dorsum of the right foot as noted and a smaller ulcerations on the left foot also as noted. LABORATORY DATA: Her chemistry showed a BUN of 23, sodium 135, potassium 4.6, chloride 96, CO2 of 24, glucose 573 initially, and creatinine 0.6. Her fingersticks were actually over 500 as noted. Hematology; WBC is 16.4, hemoglobin of 9.9, hematocrit of 30, and platelets of 442. ASSESSMENT AND PLAN: This is a 72-year-old female with uncontrolled and decompensated type 2 insulin-requiring diabetes with marked hyperglycemic accelerations related to drug omission and recent medical followup with poor adherence to her previously prescribed oral hypoglycemic medications and presenting here with gas gangrene of the right foot and severe underlying diabetic polyneuropathy with possible severe peripheral arterial vasculopathy as noted. Plan of management, we will modify her current insulin regimen to a more physiologic basal and bolus insulin drug combination as ordered. Because of the variability of her oral intake, we will start her with Humalog given as 6 units subcutaneously t.i.d. before meals to start at dinnertime today as ordered. We will also add Levemir given as basal insulin overnight at 14 units subcutaneously at bedtime daily to start tonight. We will modify the coverage scale to obviate hypoglycemia and detailed orders have been given. We will obtain serial chemistries and supplement accordingly as needed. We will also obtain a hemoglobin A1c to confirm her prior poor glycemic control and baseline thyroid function studies and lipid panel will be ordered. We will initiate diabetic education and dietary instructions also at the time of this admission. We will follow. Aparna Yang MD
[2018-03-31 23:50] LABS: INR 1.2 (0.9-1.2); PARTIAL THROMBOPLASTIN TIME 29.2 Seconds (25.6-37.1); PROTHROMBIN TIME 13.7 Seconds (9.8-13.1)
--- NOTE | 2018-04-01 01:10 | CP.PCM.CON ---
History of Present Illness - History of Present Illness History of Present Illness: General Surgery Consult Note: Dr. Louie 72F with PMHx of HTN, DM, PE, currently admitted to ICU after being found to have gas gangrene on right lower extremity. Patient has b/l LE cellulitis with multiple wounds along lower extremities. General surgery consulted by podiatry for consideration and possible amputation of right foot. Patient is scheduled for I&D with podiatry tomorrow morning. Patient admits to not being compliant with her medications and following up with her medical providers. PMHx: as stated above Allergies: NKDA Fam Hx: non-contributory Past Patient History - Past Social History Smoking Status: Former Smoker - CARDIAC Hx Cardiac Disorders: Yes Hx Hypertension: Yes - PULMONARY Hx Respiratory Disorders: Yes Hx Asthma: Yes - NEUROLOGICAL Hx Neurological Disorder: No - HEENT Hx HEENT Problems: Yes Other/Comment: Uses eye glasses. - RENAL Hx Chronic Kidney Disease: No - ENDOCRINE/METABOLIC Hx Endocrine Disorders: Yes Hx Diabetes Mellitus Type 2: Yes - HEMATOLOGICAL/ONCOLOGICAL Hx Blood Disorders: No - INTEGUMENTARY Other/Comment: Scaly bilateral lower legs. - MUSCULOSKELETAL/RHEUMATOLOGICAL Hx Musculoskeletal Disorders: Yes Hx Falls: Yes Hx Unsteady Gait: Yes - GASTROINTESTINAL Hx Gastrointestinal Disorders: No - GENITOURINARY/GYNECOLOGICAL Hx Genitourinary Disorders: No - PSYCHIATRIC Hx Psychophysiologic Disorder: No Hx Substance Use: No - SURGICAL HISTORY Hx Surgeries: No - ANESTHESIA Hx Anesthesia: No Hx Anesthesia Reactions: No Hx Malignant Hyperthermia: No Has any member of the family had a problem w/ anesthesia?: No Meds Allergies/Adverse Reactions: Allergies Allergy/AdvReac Type Severity Reaction Status Date / Time No Known Allergies Allergy Verified 03/30/18 14:43 - Medications Medications: Current Medications Acetaminophen (Tylenol 325mg Tab) 650 mg PO Q6H PRN PRN Reason: Pain, Mild (1-3) Last Admin: 03/31/18 07:44 Dose: 650 mg Acetaminophen (Tylenol 325mg Tab) 650 mg PO Q6H PRN PRN Reason: Fever >100.4 F Aspirin (Aspirin) 325 mg PO DAILY [facility] Last Admin: 03/31/18 09:12 Dose: 325 mg Atorvastatin Calcium (Lipitor) 40 mg PO DAILY [facility] Last Admin: 03/31/18 09:13 Dose: 40 mg Piperacillin Sod/Tazobactam (Sod 3.375 gm/ Sodium Chloride) 100 mls @ 100 mls/ hr IVPB Q6 SARAH PRN Reason: Protocol Last Admin: 03/31/18 21:06 Dose: 100 mls/hr Vancomycin HCl 1 gm/ Sodium (Chloride) 250 mls @ 166.667 mls/hr IVPB Q12 SARAH PRN Reason: Protocol Last Admin: 03/31/18 21:05 Dose: 166.667 mls/hr Heparin Sodium/Dextrose (Heparin 25,000 Units/250ml In D5w) 25,000 units in 250 mls @ 10 mls/hr IV .Q24H SARAH PRN Reason: Protocol Last Titration: 04/01/18 00:57 Dose: 14 mls/hr Insulin Detemir (Levemir) 14 units SC HS [facility] Last Admin: 03/31/18 22:07 Dose: 14 units Insulin Human Lispro (Humalog) 0 units SC ACHS [facility] PRN Reason: Protocol Last Admin: 03/31/18 22:08 Dose: Not Given Insulin Human Lispro (Humalog) 6 units SC AC [facility] Last Admin: 03/31/18 16:46 Dose: 6 units Metoprolol Tartrate (Lopressor) 25 mg PO Q12 [facility] Last Admin: 03/31/18 21:57 Dose: Not Given Results - Vital Signs Recent Vital Signs: Last Vital Signs Temp 98.7 F 04/01/18 00:00 Pulse 83 04/01/18 00:00 Resp 24 04/01/18 00:00 BP 110/52 L 04/01/18 00:00 Pulse Ox 95 04/01/18 00:00 - Labs Result Diagrams: 04/01/18 04:40 03/31/18 04:17 Labs: Laboratory Results - last 24 hr 03/31/18 03/31/18 03/31/18 04:17 04:17 06:31 WBC 15.5 H RBC 3.46 L Hgb 9.3 L Hct 28.5 L MCV 82.2 MCH 26.8 L MCHC 32.6 L RDW 13.6 Plt Count 395 ESR > 120 H PT INR APTT D-Dimer, Quantitative Sodium 139 Potassium 3.7 Chloride 101 Carbon Dioxide 26 Anion Gap 16 BUN 21 H Creatinine 0.6 L Est GFR ( Amer) > 60 Est GFR (Non-Af Amer) > 60 POC Glucose (mg/dL) 84 Random Glucose 112 H Calcium 8.8 Troponin I 03/31/18 03/31/18 03/31/18 08:25 10:47 13:18 WBC RBC Hgb Hct MCV MCH MCHC RDW Plt Count ESR PT INR APTT D-Dimer, Quantitative 495 H Sodium Potassium Chloride Carbon Dioxide Anion Gap BUN Creatinine Est GFR ( Amer) Est GFR (Non-Af Amer) POC Glucose (mg/dL) 204 H Random Glucose Calcium Troponin I 5.2100 H* 03/31/18 03/31/18 03/31/18 16:43 21:07 23:14 WBC RBC Hgb Hct MCV MCH MCHC RDW Plt Count ESR PT 13.7 H INR 1.2 APTT 29.2 D-Dimer, Quantitative Sodium Potassium Chloride Carbon Dioxide Anion Gap BUN Creatinine Est GFR ( Amer) Est GFR (Non-Af Amer) POC Glucose (mg/dL) 233 H 232 H Random Glucose Calcium Troponin I
[2018-04-01] MEDS: Piperacillin/Tazobact 3.375 GM in Sodium Chloride 0.9% 100 ML IVPB SCH ×5 (05:34→21:55)
[2018-04-01 05:45] LABS: LDL CHOLESTEROL 65 mg/dL (0-129)
[2018-04-01 05:56] LABS: HEMOGLOBIN 8.6 g/dL (12.0-16.0); MEAN CORPUSCULAR HEMOGLOBIN 26.5 pg (27.0-31.0); MEAN CORPUSCULAR HGB CONC 32.3 g/dL (33.0-37.0); RBC 3.26 Mil/uL (3.80-5.20); RED CELL DISTRIBUTION WIDTH 14.2 % (11.5-14.5); WHITE BLOOD COUNT 15.1 K/uL (4.8-10.8)
--- NOTE | 2018-04-01 06:26 | CARD ---
APPROVED REPORT EKG Measurement Heart [id number] <Conclusion> Normal sinus rhythm Possible Left atrial enlargement Left axis deviation
--- NOTE | 2018-04-01 06:33 | CARD ---
APPROVED REPORT EKG Measurement Heart [id number] <Conclusion> Sinus tachycardia Possible Left atrial enlargement Abnormal ECG
--- NOTE | 2018-04-01 06:41 | CP.PCM.PN ---
Subjective - Date & Time of Evaluation Date of Evaluation: 04/01/18 Time of Evaluation: 06:41 - Subjective Subjective: Podiatry - Dr. Smith 72F seen and evaluated in ICU for RLE gas gangrene and bilateral lower extremity cellulitis with multiple wounds. Patient resting comfortably, NAD. No acute events overnight. Patient reports pain in right leg, well-controlled. No complaints to LLE today. No other pedal complaints. Dressings remain clean/dry/ intact. Denies N/V/F/D/C. No SOB at present. Objective - Vital Signs/Intake and Output Vital Signs (last 24 hours): Temp Pulse Resp BP Pulse Ox 98.6 F 90 18 108/66 93 L 04/01/18 04:00 04/01/18 06:00 04/01/18 06:00 04/01/18 06:00 04/01/18 06:00 Intake and Output: 03/31/18 04/01/18 18:59 06:59 Intake Total 850 28 Output Total 100 Balance 750 28 - Medications Medications: Current Medications Acetaminophen (Tylenol 325mg Tab) 650 mg PO Q6H PRN PRN Reason: Pain, Mild (1-3) Last Admin: 03/31/18 07:44 Dose: 650 mg Acetaminophen (Tylenol 325mg Tab) 650 mg PO Q6H PRN PRN Reason: Fever >100.4 F Aspirin (Aspirin) 325 mg PO DAILY [facility] Last Admin: 03/31/18 09:12 Dose: 325 mg Atorvastatin Calcium (Lipitor) 40 mg PO DAILY [facility] Last Admin: 03/31/18 09:13 Dose: 40 mg Piperacillin Sod/Tazobactam (Sod 3.375 gm/ Sodium Chloride) 100 mls @ 100 mls/ hr IVPB Q6 SARAH PRN Reason: Protocol Last Admin: 04/01/18 05:34 Dose: 100 mls/hr Vancomycin HCl 1 gm/ Sodium (Chloride) 250 mls @ 166.667 mls/hr IVPB Q12 SARAH PRN Reason: Protocol Last Admin: 03/31/18 21:05 Dose: 166.667 mls/hr Heparin Sodium/Dextrose (Heparin 25,000 Units/250ml In D5w) 25,000 units in 250 mls @ 10 mls/hr IV .Q24H SARAH PRN Reason: Protocol Last Titration: 04/01/18 00:57 Dose: 14 mls/hr Insulin Detemir (Levemir) 14 units SC HS [facility] Last Admin: 03/31/18 22:07 Dose: 14 units Insulin Human Lispro (Humalog) 0 units SC ACHS [facility] PRN Reason: Protocol Last Admin: 03/31/18 22:08 Dose: Not Given Insulin Human Lispro (Humalog) 6 units SC AC [facility] Last Admin: 03/31/18 16:46 Dose: 6 units Metoprolol Tartrate (Lopressor) 25 mg PO Q12 [facility] Last Admin: 03/31/18 21:57 Dose: Not Given - Labs Labs: 04/01/18 04:40 PT 13.7 Seconds (9.8-13.1) H 03/31/18 23:14 INR 1.2 (0.9-1.2) 03/31/18 23:14 APTT 96.3 Seconds (25.6-37.1) H D 04/01/18 04:40 - Constitutional Appears: Well, Non-toxic, No Acute Distress - Extremities Exam Additional comments: Dressings to bilateral LE remain clean/dry/intact. - Neurological Exam Neurological Exam: Alert, Awake, Oriented x3 - Psychiatric Exam Psychiatric exam: Normal Affect, Normal Mood Assessment and Plan - Assessment and Plan (Free Text) Assessment: 72 year old female patient with PMHx of DM, HTN was evaluated for 1). 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 multiple necrotic wounds b/l LE 3). Cellulitis Plan: Patient seen and evaluated Discussed with attending, Dr. Smith Afebrile, WBC 15.1, ESR >120 Pre-bedside I&D XR bilateral LE: Diffuse radiolucency on the medial aspect of the 1st MTPJ of the right foot within the soft tissue consistent with soft tissue emphysema -Post I&D foot and tib-fib XR: No signs of soft tissue emphysema Venous duplex: no evidence of DVT Right foot WCx: (prelim) gram negative yordan, beta hemolytic strep group B ID recs appreciated - continue Vancomycin 1g IV, Zosyn 3.375g IV Discussed with patient foot prognosis is poor - will benefit from right foot I& D however recommend RLE BKA for more definitive procedure given chronicity of wounds, presence of ST emphysema -Patient agreeable to R BKA -Vascular consulted, plan for R BKA pending medical/cardiac clearance To OR today for right foot I&D, NPO confirmed Podiatry will continue to follow
[2018-04-01 07:46] LABS: ALB/GLOB RATIO 0.6 (1.0-2.1); ALBUMIN 2.4 g/dL (3.5-5.0); ALT/SGPT 28 U/L (9-52); AST/SGOT 25 U/L (14-36); BLOOD UREA NITROGEN 25 mg/dl (7-17); CALCIUM 8.5 mg/dL (8.4-10.2); GFR AFRICAN-AMERICAN > 60; GFR NON-AFRICAN AMERICAN > 60; HDL CHOLESTEROL 22 MG/DL (30-70)
[2018-04-01] MEDS: Insulin Lispro (humaLOG) 100 Units/ml Inj SC SCH ×7 (08:00→21:49)
--- NOTE | 2018-04-01 08:26 | PN ---
DATE: 03/31/2018 CRITICAL CARE PROGRESS NOTE LOCATION: The patient in ICU bed 433. TIME SPENT: 45 minutes. IDENTIFICATION DATA: The patient is seen and evaluated at the bedside. Events discussed with overnight hospitalist. Past medical, surgical, social and family history reviewed. HISTORY OF PRESENT ILLNESS: This is a 72-year-old morbidly obese female who lives alone at home with longstanding history of diabetes mellitus type 2, hypertension, noncompliant with medications noted to have chronic cellulitis involving both lower extremities, but with poor hygiene. She recently reported to be confined to limited activities and spending most of the time on bed. After the patient admitted through Emergency Room. In ER, the patient was noted to have tachy cardia, elevated troponin, consulted by cardiology thought to be elevated troponin secondary to cellulitis/gangrene. A CT angio obtained and showed a small of pulmonary embolism involving right upper lobe given subcutaneous Lovenox, seen by Podiatry consult, underwent partial debridement of both lower extremities as suspected to have gas in the soft tissues due to infection. Currently on vancomycin and Zosyn, admitted to ICU. REVIEW OF SYSTEMS: Remains alert and awake, and follows commands appropriate. Denies fevers or chills. No headache. No shortness of breath. No chest pain or palpitation. No abdominal discomfort. She feels a heaviness on both legs. PHYSICAL EXAMINATION: VITAL SIGNS: Temperature of 99.1, heart rate of 86 and regular, blood pressure of 111/54, mean arterial pressure of 73, respiratory rate of 24, and oxygen saturation of 94% on room air. Weight of 210 pounds. INTAKE AND OUTPUT: Intake and output noted. HEENT: Examination of head, eyes, ears, nose and throat: Pupils are reactive. Conjunctivae are pink. Sclerae are white. NECK: Supple. Neck is short. Reduced oropharyngeal air space. No jugular venous distention in the axillary. No cervical, axillary lymphadenopathy. CHEST: Bilateral breath sounds diminished in intensity. Clear to auscultation anteriorly and laterally. HEART: Rhythm regular. S1 and S2 normal. No audible murmur. ABDOMEN: Bowel sounds present and soft. Liver and spleen not palpable. GENITOURINARY: Bladder not distended. EXTREMITIES: With bilateral diffuse verrucous skin with pockets of infection. LABORATORY DATA: WBC of 15.5, hemoglobin of 9.3, hematocrit of 28.5, and platelet count of 395. ABGs showed a lactate of 3 and repeat of 1.7. ABGs; pH of 7.46, pCO2 of 37, pO2 of 61. SMA-7; sodium of 139, potassium of 3.7, chloride of 101, CO2 of 26, blood urea nitrogen of 21, and creatinine of 0.6. Random glucose of 204 and calcium of 8.8. Troponin of 5.4 and second troponin of 5.2. Microbiology report is pending. IMAGING DATA: Chest x-ray: No active disease. DIAGNOSTIC DATA: Head CT: No acute intracranial hemorrhage. Ultrasound of lower extremity: Soft and no acute findings. No deep venous thrombosis. CT chest: Small emboli, upper lobe branch of the right pulmonary artery with the vessels, well perfused distally. CURRENT MEDICATIONS: Vancomycin 1 g IV q. 12 hours, Zosyn 3.375 grams q. 6 hours, and Lopressor 25 mg p.o. q. 12 hours. Accu-Chek with regular insulin, Levemir 10 units subcutaneous at bedtime, Lipitor 40 mg p.o. daily, aspirin 325 mg p.o. daily, Tylenol 650 q. 6 hours. p.r.n. for temperature above 100.4 and Tylenol 650 q. 6 hours. p.r.n. for pain. IMPRESSION AND PLAN: 1. Neurologic: Oriented to name, place and time. 2. Pulmonary: CT angiogram with suspected small pulmonary embolism involving upper lobe of right pulmonary artery, however, clinical relevance unclear with acute versus chronic, but given the limited ambulation and the involvement of lower extremities with soft tissue infection. Likely, we will start empirically on Lovenox with anticoagulation. Closely monitor for any bleeding episodes. We will and D-dimer to compliment the positive finding on CT angiogram. 3. Cardiac: No acute issues noted. No history of coronary artery disease in the past, but as per the patient. 4. Anemia of chronic disease. 5. Infectious Diseases: Cellulitis chronic with lymphedema on lower extremities. Appreciate podiatry input. Continue current antibiotics. Infectious Diseases consult for optimizing an antibiotic. 6. Renal: No acute issues noted. Normal electrolytes. 7. Endocrine: Diabetes mellitus type 2, non-compliant. We will continue Levemir with Accu-Chek with regular insulin coverage. Endocrine consult for optimization of treatment. 8. Continue deep venous thrombosis and gastrointestinal prophylaxis, currently on Lovenox. Addy Duffy MD
--- NOTE | 2018-04-01 09:20 | CP.PCM.PN ---
Subjective - Date & Time of Evaluation Date of Evaluation: 04/01/18 Time of Evaluation: 09:16 - Subjective Subjective: General Surgery Progress Note 72F seen this AM for gas gangrene of RLE with multiple infected wounds. Patient denies any acute overnight events or new LE complaints. States that her pain is well controlled at this time. Denies an N/V/F/C/CP/SOB/D Objective - Vital Signs/Intake and Output Vital Signs (last 24 hours): Temp Pulse Resp BP Pulse Ox 98.6 F 85 16 96/42 L 96 04/01/18 04:00 04/01/18 08:00 04/01/18 08:00 04/01/18 08:00 04/01/18 08:00 Intake and Output: 04/01/18 04/01/18 06:59 18:59 Intake Total 28 24 Balance 28 24 - Medications Medications: Current Medications Acetaminophen (Tylenol 325mg Tab) 650 mg PO Q6H PRN PRN Reason: Pain, Mild (1-3) Last Admin: 03/31/18 07:44 Dose: 650 mg Acetaminophen (Tylenol 325mg Tab) 650 mg PO Q6H PRN PRN Reason: Fever >100.4 F Aspirin (Aspirin) 325 mg PO DAILY [facility] Last Admin: 03/31/18 09:12 Dose: 325 mg Atorvastatin Calcium (Lipitor) 40 mg PO DAILY [facility] Last Admin: 03/31/18 09:13 Dose: 40 mg Piperacillin Sod/Tazobactam (Sod 3.375 gm/ Sodium Chloride) 100 mls @ 100 mls/ hr IVPB Q6 SARAH PRN Reason: Protocol Last Admin: 04/01/18 05:34 Dose: 100 mls/hr Vancomycin HCl 1 gm/ Sodium (Chloride) 250 mls @ 166.667 mls/hr IVPB Q12 SARAH PRN Reason: Protocol Last Admin: 03/31/18 21:05 Dose: 166.667 mls/hr Heparin Sodium/Dextrose (Heparin 25,000 Units/250ml In D5w) 25,000 units in 250 mls @ 10 mls/hr IV .Q24H SARAH PRN Reason: Protocol Last Titration: 04/01/18 06:46 Dose: 12 mls/hr Insulin Detemir (Levemir) 14 units SC HS [facility] Last Admin: 03/31/18 22:07 Dose: 14 units Insulin Human Lispro (Humalog) 0 units SC ACHS [facility] PRN Reason: Protocol Last Admin: 03/31/18 22:08 Dose: Not Given Insulin Human Lispro (Humalog) 6 units SC AC [facility] Last Admin: 03/31/18 16:46 Dose: 6 units Metoprolol Tartrate (Lopressor) 25 mg PO Q12 [facility] Last Admin: 03/31/18 21:57 Dose: Not Given - Labs Labs: 04/01/18 04:40 04/01/18 04:40 PT 13.7 Seconds (9.8-13.1) H 03/31/18 23:14 INR 1.2 (0.9-1.2) 03/31/18 23:14 APTT 96.3 Seconds (25.6-37.1) H D 04/01/18 04:40 - Constitutional Appears: Well, Non-toxic, No Acute Distress - Head Exam Head Exam: ATRAUMATIC, NORMOCEPHALIC - Extremities Exam Additional comments: Bilateral LE exam VASC: DP/PT pulses non-palpable bilaterally, CFT < 3 sec to all digits, Skin temp warm to warm from proximal to distal R>L, non-pitting edema noted from foot to mid calf bilaterally DERM: Multiple wounds on bilateral lower extremities, severe malodor b/l, hyperkeratotic sloughing of the skin from mid leg to the feet b/l, b/l erythema noted from mid calf distally to foot b/l Right: Circular, necrotic wound measuring approx. 4.5 cm x 4.5 cm x 0.5 cm with sloughing of the soft tissue noted at the base of the 1st metatarsal, approx 3.5 cm incision noted on the medial aspect of the right 1st MTPJ which probes to bone, with visible fibro-necrotic tissue noted. No active drainage, no purulence expressed from the incision site on palpation from all directions Second necrotic wound present at the plantar aspect of the right heel measuring approx 7.5 cm x 5.5 cm x 0.5 cm with gerber-wound erythema and epidermal layer sloughing on the lateral side, no active drainage from both the wounds, no purulence, no tunneling or tracking Left: Circular necrotic wound measuring approx 2.5 cm x 2.5 cm x 0.3 cm present on the plantar aspect of the 5th metatarsal head, no tunneling, no tracking, no undermining, no active drainage NEURO: Protective sensation grossly diminished b/l ORTHO: mild pain on palpation of the wound and PROM of the hallux at the 1st MTPJ, diffuse pain on palpation of the plantar aspect of the foot b/l (R>L), no pain on palpation of the calf b/l - Neurological Exam Neurological Exam: Alert, Awake, Oriented x3 - Psychiatric Exam Psychiatric exam: Normal Affect, Normal Mood Assessment and Plan - Assessment and Plan (Free Text) Assessment: 72F with gas gangrene of the right forefoot wound and multiple necrotic wounds b /l LE with cellulitis noted b/l Plan: WBC 15.1 from 15.5 Wound cx R foot GNR Imaging reviewed Recommendations per Podiatry is BKA of right leg Discussed with patient and she is agreeable Awaiting WENDI/PVRs, CTA b/l LE Medical and surgical clearance needed Will discuss further with Dr. Louie
--- NOTE | 2018-04-01 10:25 | CP.PCM.PN ---
Subjective - Date & Time of Evaluation Date of Evaluation: 04/01/18 Time of Evaluation: 20:25 - Subjective Subjective: Seen and examined at the bed side. Denies fever or chills. S/P I&D. Objective - Vital Signs/Intake and Output Vital Signs (last 24 hours): Temp Pulse Resp BP Pulse Ox 98.6 F 85 22 96/42 L 100 04/01/18 09:34 04/01/18 09:34 04/01/18 09:34 04/01/18 09:34 04/01/18 09:34 Intake and Output: 04/01/18 04/01/18 06:59 18:59 Intake Total 28 24 Balance 28 24 - Medications Medications: Current Medications Acetaminophen (Tylenol 325mg Tab) 650 mg PO Q6H PRN PRN Reason: Pain, Mild (1-3) Last Admin: 03/31/18 07:44 Dose: 650 mg Acetaminophen (Tylenol 325mg Tab) 650 mg PO Q6H PRN PRN Reason: Fever >100.4 F Aspirin (Aspirin) 325 mg PO DAILY [facility] Last Admin: 03/31/18 09:12 Dose: 325 mg Atorvastatin Calcium (Lipitor) 40 mg PO DAILY [facility] Last Admin: 03/31/18 09:13 Dose: 40 mg Piperacillin Sod/Tazobactam (Sod 3.375 gm/ Sodium Chloride) 100 mls @ 100 mls/ hr IVPB Q6 SARAH PRN Reason: Protocol Last Admin: 04/01/18 05:34 Dose: 100 mls/hr Vancomycin HCl 1 gm/ Sodium (Chloride) 250 mls @ 166.667 mls/hr IVPB Q12 SAARH PRN Reason: Protocol Last Admin: 03/31/18 21:05 Dose: 166.667 mls/hr Heparin Sodium/Dextrose (Heparin 25,000 Units/250ml In D5w) 25,000 units in 250 mls @ 10 mls/hr IV .Q24H SARAH PRN Reason: Protocol Last Titration: 04/01/18 06:46 Dose: 12 mls/hr Insulin Detemir (Levemir) 14 units SC HS [facility] Last Admin: 03/31/18 22:07 Dose: 14 units Insulin Human Lispro (Humalog) 0 units SC ACHS [facility] PRN Reason: Protocol Last Admin: 03/31/18 22:08 Dose: Not Given Insulin Human Lispro (Humalog) 6 units SC AC [facility] Last Admin: 03/31/18 16:46 Dose: 6 units Metoprolol Tartrate (Lopressor) 25 mg PO Q12 [facility] Last Admin: 03/31/18 21:57 Dose: Not Given - Labs Labs: 04/01/18 04:40 04/01/18 04:40 PT 13.7 Seconds (9.8-13.1) H 03/31/18 23:14 INR 1.2 (0.9-1.2) 03/31/18 23:14 APTT 96.3 Seconds (25.6-37.1) H D 04/01/18 04:40 - Constitutional Appears: Well, No Acute Distress - Head Exam Head Exam: ATRAUMATIC, NORMAL INSPECTION, NORMOCEPHALIC - Eye Exam Eye Exam: EOMI, Normal appearance, PERRL Pupil Exam: NORMAL ACCOMODATION, PERRL - ENT Exam ENT Exam: Mucous Membranes Moist, Normal Exam - Neck Exam Neck Exam: Full ROM, Normal Inspection. absent: Lymphadenopathy - Respiratory Exam Respiratory Exam: Clear to Ausculation Bilateral, NORMAL BREATHING PATTERN - Cardiovascular Exam Cardiovascular Exam: REGULAR RHYTHM, +S1, +S2. absent: Murmur - GI/Abdominal Exam GI & Abdominal Exam: Soft, Normal Bowel Sounds. absent: Tenderness - Extremities Exam Extremities Exam: Full ROM, Normal Capillary Refill, Normal Inspection. absent : Joint Swelling, Pedal Edema - Back Exam Back Exam: NORMAL INSPECTION. absent: CVA tenderness (L), CVA tenderness (R) - Neurological Exam Neurological Exam: Alert, Awake, CN II-XII Intact, Normal Gait, Oriented x3 - Psychiatric Exam Psychiatric exam: Normal Affect, Normal Mood - Skin Skin Exam: Dry, Intact, Normal Color, Warm Assessment and Plan (1) Gas gangrene Assessment & Plan: Sepsis B/L Foot Infection Admit to ICU IVF IV Vanco and Zosymycin Vanco T/P with 4th dose [employer] Hand and ID Onboard Wound and Blood Culture Monitor CBC with diff Status: Acute Priority: High (2) NSTEMI (non-ST elevated myocardial infarction) Assessment and Plan: Heparin Infusion ASA BB Cardiology Consult O2 Via NC Status: Acute Priority: High (3) Uncontrolled diabetes mellitus Status: Acute Low dose coverage (4) Fall Status: Acute Priority: Medium (5) DVT Prophylaxis Status: Acute
--- NOTE | 2018-04-01 10:49 | CP.PCM.PN ---
Subjective - Date & Time of Evaluation Date of Evaluation: 04/01/18 Time of Evaluation: 10:00 - Subjective Subjective: 72 year old female patient with PMHx of DM, HTN was evaluated for 1). 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 multiple necrotic wounds b/l LE 3). Cellulitis Podiatry is scheduling her for BKA EKG: NSR She is cleared for surgery Objective - Vital Signs/Intake and Output Vital Signs (last 24 hours): Temp Pulse Resp BP Pulse Ox 98.6 F 85 22 96/42 L 100 04/01/18 09:34 04/01/18 09:34 04/01/18 09:34 04/01/18 09:34 04/01/18 09:34 Intake and Output: 04/01/18 04/01/18 06:59 18:59 Intake Total 28 24 Balance 28 24 - Medications Medications: Current Medications Acetaminophen (Tylenol 325mg Tab) 650 mg PO Q6H PRN PRN Reason: Pain, Mild (1-3) Last Admin: 03/31/18 07:44 Dose: 650 mg Acetaminophen (Tylenol 325mg Tab) 650 mg PO Q6H PRN PRN Reason: Fever >100.4 F Aspirin (Aspirin) 325 mg PO DAILY [facility] Last Admin: 03/31/18 09:12 Dose: 325 mg Atorvastatin Calcium (Lipitor) 40 mg PO DAILY [facility] Last Admin: 03/31/18 09:13 Dose: 40 mg Piperacillin Sod/Tazobactam (Sod 3.375 gm/ Sodium Chloride) 100 mls @ 100 mls/ hr IVPB Q6 SARAH PRN Reason: Protocol Last Admin: 04/01/18 10:07 Dose: 100 mls/hr Vancomycin HCl 1 gm/ Sodium (Chloride) 250 mls @ 166.667 mls/hr IVPB Q12 SARAH PRN Reason: Protocol Last Admin: 04/01/18 10:08 Dose: 166.667 mls/hr Heparin Sodium/Dextrose (Heparin 25,000 Units/250ml In D5w) 25,000 units in 250 mls @ 10 mls/hr IV .Q24H SARAH PRN Reason: Protocol Last Titration: 04/01/18 06:46 Dose: 12 mls/hr Insulin Detemir (Levemir) 14 units SC HS [facility] Last Admin: 03/31/18 22:07 Dose: 14 units Insulin Human Lispro (Humalog) 0 units SC ACHS [facility] PRN Reason: Protocol Last Admin: 03/31/18 22:08 Dose: Not Given Insulin Human Lispro (Humalog) 6 units SC AC [facility] Last Admin: 04/01/18 08:00 Dose: 6 units Metoprolol Tartrate (Lopressor) 25 mg PO Q12 [facility] Last Admin: 03/31/18 21:57 Dose: Not Given - Labs Labs: 04/01/18 04:40 04/01/18 04:40 PT 13.7 Seconds (9.8-13.1) H 03/31/18 23:14 INR 1.2 (0.9-1.2) 03/31/18 23:14 APTT 96.3 Seconds (25.6-37.1) H D 04/01/18 04:40 Assessment and Plan (1) Elevated troponin Status: Acute (2) Gas gangrene Assessment & Plan: Pt is cleared for BKA surgery Status: Acute (3) Sepsis Status: Acute (4) Uncontrolled diabetes mellitus Status: Acute
[2018-04-01] MEDS ORDERED: Iodixanol 320 MG/ML 100 ML BOTTLE IV ONE (11:24)
[2018-04-01] MEDS ORDERED: Sodium Chloride 0.9% 50 ML IV ONE (11:24)
--- NOTE | 2018-04-01 12:16 | CP.PCM.CON ---
History of Present Illness - History of Present Illness History of Present Illness: A 72 y/o female with DM2 and HTN who is not taking any medications. She had a mechanical fall today, and was unable to get up and when her son came, then called EMS. Did not hit her head or lose consciousness. ICU admission was called when she was found to have gas gangrene of RLE, and bilateral lower extremity cellulitis with multiple wounds, and at Presentation patient was tachycardic and Blood work showed Lactic Acidosis and Leukocytosis meeting SIRS Criteria hence Sepsis Criteria Patient says the cellulitis began in april 2017 and since then recurrent, and has not been compliant to her medications. Past Patient History - Past Medical History & Family History Past Medical History?: Yes Past Family History: Reviewed and not pertinent - Past Social History Smoking Status: Former Smoker - CARDIAC Hx Cardiac Disorders: Yes Hx Hypertension: Yes - PULMONARY Hx Respiratory Disorders: Yes Hx Asthma: Yes - NEUROLOGICAL Hx Neurological Disorder: No - HEENT Hx HEENT Problems: Yes Other/Comment: Uses eye glasses. - RENAL Hx Chronic Kidney Disease: No - ENDOCRINE/METABOLIC Hx Endocrine Disorders: Yes Hx Diabetes Mellitus Type 2: Yes - HEMATOLOGICAL/ONCOLOGICAL Hx Blood Disorders: No - INTEGUMENTARY Other/Comment: Scaly bilateral lower legs. - MUSCULOSKELETAL/RHEUMATOLOGICAL Hx Musculoskeletal Disorders: Yes Hx Falls: Yes Hx Unsteady Gait: Yes - GASTROINTESTINAL Hx Gastrointestinal Disorders: No - GENITOURINARY/GYNECOLOGICAL Hx Genitourinary Disorders: No - PSYCHIATRIC Hx Psychophysiologic Disorder: No Hx Substance Use: No - SURGICAL HISTORY Hx Surgeries: No - ANESTHESIA Hx Anesthesia: No Hx Anesthesia Reactions: No Hx Malignant Hyperthermia: No Has any member of the family had a problem w/ anesthesia?: No Meds Allergies/Adverse Reactions: Allergies Allergy/AdvReac Type Severity Reaction Status Date / Time No Known Allergies Allergy Verified 03/30/18 14:43 - Medications Medications: Current Medications Acetaminophen (Tylenol 325mg Tab) 650 mg PO Q6H PRN PRN Reason: Pain, Mild (1-3) Last Admin: 03/31/18 07:44 Dose: 650 mg Acetaminophen (Tylenol 325mg Tab) 650 mg PO Q6H PRN PRN Reason: Fever >100.4 F Aspirin (Aspirin) 325 mg PO DAILY [facility] Last Admin: 04/01/18 12:14 Dose: Not Given Atorvastatin Calcium (Lipitor) 40 mg PO DAILY [facility] Last Admin: 04/01/18 12:08 Dose: Not Given Piperacillin Sod/Tazobactam (Sod 3.375 gm/ Sodium Chloride) 100 mls @ 100 mls/ hr IVPB Q6 [facility] PRN Reason: Protocol Last Admin: 04/01/18 10:07 Dose: 100 mls/hr Vancomycin HCl 1 gm/ Sodium (Chloride) 250 mls @ 166.667 mls/hr IVPB Q12 SARAH PRN Reason: Protocol Last Admin: 04/01/18 10:08 Dose: 166.667 mls/hr Heparin Sodium/Dextrose (Heparin 25,000 Units/250ml In D5w) 25,000 units in 250 mls @ 10 mls/hr IV .Q24H SARAH PRN Reason: Protocol Last Titration: 04/01/18 06:46 Dose: 12 mls/hr Insulin Detemir (Levemir) 14 units SC HS [facility] Last Admin: 03/31/18 22:07 Dose: 14 units Insulin Human Lispro (Humalog) 0 units SC ACHS [facility] PRN Reason: Protocol Last Admin: 04/01/18 12:05 Dose: Not Given Insulin Human Lispro (Humalog) 6 units SC AC [facility] Last Admin: 04/01/18 12:06 Dose: Not Given Metoprolol Tartrate (Lopressor) 25 mg PO Q12 [facility] Last Admin: 04/01/18 12:08 Dose: Not Given Physical Exam - Extremities Exam Additional comments: bilateral lower extremities with swelling, multiple ulcers with foul smelling discharge Results - Vital Signs Recent Vital Signs: Last Vital Signs Temp 98.6 F 04/01/18 09:34 Pulse 84 04/01/18 10:00 Resp 14 04/01/18 10:00 BP 118/62 04/01/18 10:00 Pulse Ox 100 04/01/18 10:00 - Labs Result Diagrams: 04/01/18 04:40 04/01/18 04:40 Labs: Laboratory Results - last 24 hr 03/31/18 03/31/18 03/31/18 13:18 16:43 21:07 WBC RBC Hgb Hct MCV MCH MCHC RDW Plt Count PT INR APTT D-Dimer, Quantitative 495 H Sodium Potassium Chloride Carbon Dioxide Anion Gap BUN Creatinine Est GFR ( Amer) Est GFR (Non-Af Amer) POC Glucose (mg/dL) 233 H 232 H Random Glucose Calcium Total Bilirubin AST ALT Alkaline Phosphatase Total Protein Albumin Globulin Albumin/Globulin Ratio Triglycerides Cholesterol LDL Cholesterol Direct HDL Cholesterol TSH 3rd Generation Blood Type Blood Type Confirm Antibody Screen Crossmatch BBK History Checked 03/31/18 04/01/18 04/01/18 23:14 04:40 04:40 WBC 15.1 H RBC 3.26 L Hgb 8.6 L Hct 26.8 L MCV 82.0 MCH 26.5 L MCHC 32.3 L RDW 14.2 Plt Count 387 PT 13.7 H INR 1.2 APTT 29.2 D-Dimer, Quantitative Sodium 138 Potassium 3.9 Chloride 100 Carbon Dioxide 28 Anion Gap 14 BUN 25 H Creatinine 0.6 L Est GFR ( Amer) > 60 Est GFR (Non-Af Amer) > 60 POC Glucose (mg/dL) Random Glucose 272 H Calcium 8.5 Total Bilirubin 0.4 AST 25 ALT 28 Alkaline Phosphatase 110 Total Protein 6.2 L Albumin 2.4 L Globulin 3.9 Albumin/Globulin Ratio 0.6 L Triglycerides 77 Cholesterol 114 LDL Cholesterol Direct 65 HDL Cholesterol 22 L TSH 3rd Generation 0.67 Blood Type Blood Type Confirm Antibody Screen Crossmatch BBK History Checked 04/01/18 04/01/18 04/01/18 04:40 05:37 09:15 WBC RBC Hgb Hct MCV MCH MCHC RDW Plt Count PT INR APTT 96.3 H D D-Dimer, Quantitative Sodium Potassium Chloride Carbon Dioxide Anion Gap BUN Creatinine Est GFR ( Amer) Est GFR (Non-Af Amer) POC Glucose (mg/dL) 265 H Random Glucose Calcium Total Bilirubin AST ALT Alkaline Phosphatase Total Protein Albumin Globulin Albumin/Globulin Ratio Triglycerides Cholesterol LDL Cholesterol Direct HDL Cholesterol TSH 3rd Generation Blood Type A NEGATIVE Blood Type Confirm Antibody Screen Negative Crossmatch See Detail BBK History Checked No verified bt 04/01/18 04/01/18 09:51 11:26 WBC RBC Hgb Hct MCV MCH MCHC RDW Plt Count PT INR APTT D-Dimer, Quantitative Sodium Potassium Chloride Carbon Dioxide Anion Gap BUN Creatinine Est GFR ( Amer) Est GFR (Non-Af Amer) POC Glucose (mg/dL) 241 H Random Glucose Calcium Total Bilirubin AST ALT Alkaline Phosphatase Total Protein Albumin Globulin Albumin/Globulin Ratio Triglycerides Cholesterol LDL Cholesterol Direct HDL Cholesterol TSH 3rd Generation Blood Type Blood Type Confirm A NEGATIVE Antibody Screen Crossmatch BBK History Checked Assessment & Plan - Assessment and Plan (Free Text) Assessment: Cellulitis with edema and gangrene Agree with Vancomycin 1 g q 12h and Zosyn 3.375g iv q 6h Needs surgical consult
--- NOTE | 2018-04-01 12:34 | CP.CCUPN ---
CCU Subjective - Physician Review Events Since Last Encounter (Free Text): 04/01/18 12:36 The patient was Seen/interviewed and examined by me at the bedside during ICU round, Medical records reviewed and Management issues were discussed and formulated with the house staff. Events reviewed Clinically improving, No Vasopressors Awake, comfortable, NAD Afebrile, NSR on the monitor Pain controlled Remains on Heparn drip, PTT 96 CCU Objective - Vital Signs / Intake & Output Vital Signs (Last 4 hours): Vital Signs Temp Pulse Resp BP Pulse Ox 04/01/18 12:00 85 14 113/55 L 99 04/01/18 10:00 84 14 118/62 100 04/01/18 09:34 98.6 F 85 22 96/42 L 100 Intake and Output (Last 8hrs): Intake & Output 03/31/18 04/01/18 04/01/18 22:59 06:59 14:59 Intake Total 360 28 436 Balance 360 28 436 Weight 210 lb Intake: IV 60 28 36 Intake, Piggyback 100 400 Oral 200 - Physical Exam Head: Positive for: Atraumatic, Normocephalic Pupils: Positive for: PERRL Extroacular Muscles: Positive for: EOMI Conjunctiva: Positive for: Normal Mouth: Positive for: Moist Mucous Membranes Neck: Positive for: Normal Range of Motion, Trachea Midline. Negative for: Meningeal Signs, MIDLINE TENDERNESS, Paraspinal Tenderness, JVD, Lymphadenopathy , Bruit, Other Respiratory/Chest: Positive for: Clear to Auscultation, Good Air Exchange. Negative for: Respiratory Distress, Accessory Muscle Use, Wheezes Cardiovascular: Positive for: Regular Rate and Rhythm, Normal S1, S2, Peripheal Pulses Present. Negative for: Murmurs, Irregular Rhythm Abdomen: Positive for: Normal Bowel Sounds. Negative for: Tenderness, Distention Back: Positive for: Normal Inspection. Negative for: CVA Tenderness Neurological: Positive for: GCS=15, CN II-XII Intact, Speech Normal, Motor Func Grossly Intact, Normal Sensory Function Psychiatric: Positive for: Alert, Oriented x 3 - Medications Active Medications: Active Medications Generic Name Dose Route Start Last Admin Trade Name Freq PRN Reason Stop Dose Admin Acetaminophen 650 mg 03/30/18 20:52 03/31/18 07:44 Tylenol 325mg Tab PO 650 mg Q6H PRN Administration Pain, Mild (1-3) Acetaminophen 650 mg 03/30/18 20:52 Tylenol 325mg Tab PO Q6H PRN Fever >100.4 F Aspirin 325 mg 03/31/18 09:00 04/01/18 12:14 Aspirin PO Not Given DAILY [facility] Atorvastatin Calcium 40 mg 03/31/18 09:00 04/01/18 12:08 Lipitor PO Not Given DAILY SARAH Piperacillin Sod/Tazobactam 100 mls @ 100 mls/hr 03/30/18 22:00 04/01/18 10: 07 Sod 3.375 gm/ Sodium Chloride IVPB 100 mls/hr Q6 SARAH Administration Protocol Vancomycin HCl 1 gm/ Sodium 250 mls @ 166.667 mls/hr 03/30/18 21:00 04/01/18 10:08 Chloride IVPB 166.667 mls/hr Q12 SARAH Administration Protocol Heparin Sodium/Dextrose 25,000 units in 250 mls @ 10 mls/hr 03/31/18 13:00 06:46 Heparin 25,000 Units/250ml In D5w IV 12 mls/hr .Q24H SARAH Titration Protocol Insulin Detemir 14 units 03/31/18 22:00 03/31/18 22:07 Levemir SC 14 units HS SARAH Administration Insulin Human Lispro 0 units 03/31/18 16:30 04/01/18 12:05 Humalog SC Not Given ACHS [facility] Protocol Insulin Human Lispro 6 units 03/31/18 16:30 04/01/18 12:06 Humalog SC Not Given AC [facility] Metoprolol Tartrate 25 mg 03/30/18 21:00 04/01/18 12:08 Lopressor PO Not Given Q12 [facility] - Patient Studies Lab Studies: Microbiology Studies 03/31/18 04:39 MRSA Culture (Admit) - Final Naris MRSA NOT DETECTED 03/30/18 21:32 Gram Stain - Final Foot - Right Wound Culture - Preliminary Gram Negative Maikel 03/30/18 19:30 Blood Culture - Preliminary Blood-Venous NO GROWTH AFTER 24 HOURS 03/30/18 19:00 Blood Culture - Preliminary Blood-Venous NO GROWTH AFTER 24 HOURS Lab Studies 04/01/18 04/01/18 04/01/18 Range/Units 11:26 09:51 09:15 WBC (4.8-10.8) K/uL RBC (3.80-5.20) Mil/uL Hgb (12.0-16.0) g/dL Hct (34.0-47.0) % MCV (81.0-99.0) fl MCH (27.0-31.0) pg MCHC (33.0-37.0) g/dL RDW (11.5-14.5) % Plt Count (130-400) K/uL PT (9.8-13.1) Seconds INR (0.9-1.2) APTT (25.6-37.1) Seconds D-Dimer, Quantitative (0-230) ng/mlDDU Sodium (132-148) mmol/l Potassium (3.6-5.0) MMOL/L Chloride (98-107) mmol/L Carbon Dioxide (22-30) mmol/L Anion Gap (10-20) BUN (7-17) mg/dl Creatinine (0.7-1.2) mg/dl Est GFR ( Amer) Est GFR (Non-Af Amer) POC Glucose (mg/dL) 241 H (65-110) mg/dL Random Glucose (65-105) mg/dL Hemoglobin A1c (4.2-6.5) % Calcium (8.4-10.2) mg/dL Total Bilirubin (0.2-1.3) mg/dl AST (14-36) U/L ALT (9-52) U/L Alkaline Phosphatase (38-126) U/L Total Protein (6.3-8.2) G/DL Albumin (3.5-5.0) g/dL Globulin (2.2-3.9) gm/dL Albumin/Globulin Ratio (1.0-2.1) Triglycerides (0-149) mg/DL Cholesterol (0-199) mg/dL LDL Cholesterol Direct (0-129) mg/dL HDL Cholesterol (30-70) MG/DL TSH 3rd Generation (0.46-4.68) mIU/ML Blood Type A NEGATIVE Blood Type Confirm A NEGATIVE Antibody Screen Negative Crossmatch See Detail BBK History Checked No verified bt 04/01/18 04/01/18 04/01/18 Range/Units 05:37 04:40 04:40 WBC 15.1 H (4.8-10.8) K/uL RBC 3.26 L (3.80-5.20) Mil/uL Hgb 8.6 L (12.0-16.0) g/dL Hct 26.8 L (34.0-47.0) % MCV 82.0 (81.0-99.0) fl MCH 26.5 L (27.0-31.0) pg MCHC 32.3 L (33.0-37.0) g/dL RDW 14.2 (11.5-14.5) % Plt Count 387 (130-400) K/uL PT (9.8-13.1) Seconds INR (0.9-1.2) APTT 96.3 H D (25.6-37.1) Seconds D-Dimer, Quantitative (0-230) ng/mlDDU Sodium (132-148) mmol/l Potassium (3.6-5.0) MMOL/L Chloride (98-107) mmol/L Carbon Dioxide (22-30) mmol/L Anion Gap (10-20) BUN (7-17) mg/dl Creatinine (0.7-1.2) mg/dl Est GFR ( Amer) Est GFR (Non-Af Amer) POC Glucose (mg/dL) 265 H (65-110) mg/dL Random Glucose (65-105) mg/dL Hemoglobin A1c (4.2-6.5) % Calcium (8.4-10.2) mg/dL Total Bilirubin (0.2-1.3) mg/dl AST (14-36) U/L ALT (9-52) U/L Alkaline Phosphatase (38-126) U/L Total Protein (6.3-8.2) G/DL Albumin (3.5-5.0) g/dL Globulin (2.2-3.9) gm/dL Albumin/Globulin Ratio (1.0-2.1) Triglycerides (0-149) mg/DL Cholesterol (0-199) mg/dL LDL Cholesterol Direct (0-129) mg/dL HDL Cholesterol (30-70) MG/DL TSH 3rd Generation (0.46-4.68) mIU/ML Blood Type Blood Type Confirm Antibody Screen Crossmatch BBK History Checked 04/01/18 04/01/18 03/31/18 Range/Units 04:40 04:40 23:14 WBC (4.8-10.8) K/uL RBC (3.80-5.20) Mil/uL Hgb (12.0-16.0) g/dL Hct (34.0-47.0) % MCV (81.0-99.0) fl MCH (27.0-31.0) pg MCHC (33.0-37.0) g/dL RDW (11.5-14.5) % Plt Count (130-400) K/uL PT 13.7 H (9.8-13.1) Seconds INR 1.2 (0.9-1.2) APTT 29.2 (25.6-37.1) Seconds D-Dimer, Quantitative (0-230) ng/mlDDU Sodium 138 (132-148) mmol/l Potassium 3.9 (3.6-5.0) MMOL/L Chloride 100 (98-107) mmol/L Carbon Dioxide 28 (22-30) mmol/L Anion Gap 14 (10-20) BUN 25 H (7-17) mg/dl Creatinine 0.6 L (0.7-1.2) mg/dl Est GFR ( Amer) > 60 Est GFR (Non-Af Amer) > 60 POC Glucose (mg/dL) (65-110) mg/dL Random Glucose 272 H (65-105) mg/dL Hemoglobin A1c 12.9 H (4.2-6.5) % Calcium 8.5 (8.4-10.2) mg/dL Total Bilirubin 0.4 (0.2-1.3) mg/dl AST 25 (14-36) U/L ALT 28 (9-52) U/L Alkaline Phosphatase 110 (38-126) U/L Total Protein 6.2 L (6.3-8.2) G/DL Albumin 2.4 L (3.5-5.0) g/dL Globulin 3.9 (2.2-3.9) gm/dL Albumin/Globulin Ratio 0.6 L (1.0-2.1) Triglycerides 77 (0-149) mg/DL Cholesterol 114 (0-199) mg/dL LDL Cholesterol Direct 65 (0-129) mg/dL HDL Cholesterol 22 L (30-70) MG/DL TSH 3rd Generation 0.67 (0.46-4.68) mIU/ML Blood Type Blood Type Confirm Antibody Screen Crossmatch BBK History Checked 03/31/18 03/31/18 03/31/18 Range/Units 21:07 16:43 13:18 WBC (4.8-10.8) K/uL RBC (3.80-5.20) Mil/uL Hgb (12.0-16.0) g/dL Hct (34.0-47.0) % MCV (81.0-99.0) fl MCH (27.0-31.0) pg MCHC (33.0-37.0) g/dL RDW (11.5-14.5) % Plt Count (130-400) K/uL PT (9.8-13.1) Seconds INR (0.9-1.2) APTT (25.6-37.1) Seconds D-Dimer, Quantitative 495 H (0-230) ng/mlDDU Sodium (132-148) mmol/l Potassium (3.6-5.0) MMOL/L Chloride (98-107) mmol/L Carbon Dioxide (22-30) mmol/L Anion Gap (10-20) BUN (7-17) mg/dl Creatinine (0.7-1.2) mg/dl Est GFR ( Amer) Est GFR (Non-Af Amer) POC Glucose (mg/dL) 232 H 233 H (65-110) mg/dL Random Glucose (65-105) mg/dL Hemoglobin A1c (4.2-6.5) % Calcium (8.4-10.2) mg/dL Total Bilirubin (0.2-1.3) mg/dl AST (14-36) U/L ALT (9-52) U/L Alkaline Phosphatase (38-126) U/L Total Protein (6.3-8.2) G/DL Albumin (3.5-5.0) g/dL Globulin (2.2-3.9) gm/dL Albumin/Globulin Ratio (1.0-2.1) Triglycerides (0-149) mg/DL Cholesterol (0-199) mg/dL LDL Cholesterol Direct (0-129) mg/dL HDL Cholesterol (30-70) MG/DL TSH 3rd Generation (0.46-4.68) mIU/ML Blood Type Blood Type Confirm Antibody Screen Crossmatch BBK History Checked Laboratory Results - last 24 hr 03/31/18 03/31/18 03/31/18 13:18 16:43 21:07 WBC RBC Hgb Hct MCV MCH MCHC RDW Plt Count PT INR APTT D-Dimer, Quantitative 495 H Sodium Potassium Chloride Carbon Dioxide Anion Gap BUN Creatinine Est GFR ( Amer) Est GFR (Non-Af Amer) POC Glucose (mg/dL) 233 H 232 H Random Glucose Hemoglobin A1c Calcium Total Bilirubin AST ALT Alkaline Phosphatase Total Protein Albumin Globulin Albumin/Globulin Ratio Triglycerides Cholesterol LDL Cholesterol Direct HDL Cholesterol TSH 3rd Generation Blood Type Blood Type Confirm Antibody Screen Crossmatch BBK History Checked 03/31/18 04/01/18 04/01/18 23:14 04:40 04:40 WBC RBC Hgb Hct MCV MCH MCHC RDW Plt Count PT 13.7 H INR 1.2 APTT 29.2 D-Dimer, Quantitative Sodium 138 Potassium 3.9 Chloride 100 Carbon Dioxide 28 Anion Gap 14 BUN 25 H Creatinine 0.6 L Est GFR ( Amer) > 60 Est GFR (Non-Af Amer) > 60 POC Glucose (mg/dL) Random Glucose 272 H Hemoglobin A1c 12.9 H Calcium 8.5 Total Bilirubin 0.4 AST 25 ALT 28 Alkaline Phosphatase 110 Total Protein 6.2 L Albumin 2.4 L Globulin 3.9 Albumin/Globulin Ratio 0.6 L Triglycerides 77 Cholesterol 114 LDL Cholesterol Direct 65 HDL Cholesterol 22 L TSH 3rd Generation 0.67 Blood Type Blood Type Confirm Antibody Screen Crossmatch BBK History Checked 04/01/18 04/01/18 04/01/18 04:40 04:40 05:37 WBC 15.1 H RBC 3.26 L Hgb 8.6 L Hct 26.8 L MCV 82.0 MCH 26.5 L MCHC 32.3 L RDW 14.2 Plt Count 387 PT INR APTT 96.3 H D D-Dimer, Quantitative Sodium Potassium Chloride Carbon Dioxide Anion Gap BUN Creatinine Est GFR ( Amer) Est GFR (Non-Af Amer) POC Glucose (mg/dL) 265 H Random Glucose Hemoglobin A1c Calcium Total Bilirubin AST ALT Alkaline Phosphatase Total Protein Albumin Globulin Albumin/Globulin Ratio Triglycerides Cholesterol LDL Cholesterol Direct HDL Cholesterol TSH 3rd Generation Blood Type Blood Type Confirm Antibody Screen Crossmatch BBK History Checked 05/04/01/18 04/01/18 09:15 09:51 11:26 WBC RBC Hgb Hct MCV MCH MCHC RDW Plt Count PT INR APTT D-Dimer, Quantitative Sodium Potassium Chloride Carbon Dioxide Anion Gap BUN Creatinine Est GFR ( Amer) Est GFR (Non-Af Amer) POC Glucose (mg/dL) 241 H Random Glucose Hemoglobin A1c Calcium Total Bilirubin AST ALT Alkaline Phosphatase Total Protein Albumin Globulin Albumin/Globulin Ratio Triglycerides Cholesterol LDL Cholesterol Direct HDL Cholesterol TSH 3rd Generation Blood Type A NEGATIVE Blood Type Confirm A NEGATIVE Antibody Screen Negative Crossmatch See Detail BBK History Checked No verified bt EKG/Cardiology Studies: Cardiology / EKG Studies 04/01/18 ELECTROCARDIOGRAM Routine Reason For Exam: MD ORDER Fingerstick Blood Sugar Results: 241 Critical Care Progress Note - Extremities/Vascular Does the Patient have a Central Venous Catheter?: No Does the Patient need a Central Venous Catheter?: No Does the Patient have a Pedro Catheter?: No Does the Patient need a Pedro Catheter?: No - Nutrition Nutrition: Nutrition Category Date Time Status NPO Diet [DIET] Diets 03/31/18 Breakfast Active Assessment/Plan (1) Foot infection Current Visit: Yes Status: Acute Comment: 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
--- NOTE | 2018-04-01 14:41 | CT ---
PROCEDURE: CT Angiography Abdomen, Pelvis and Lower Extremity with Contrast HISTORY: B/l diabetic wounds COMPARISON: None. TECHNIQUE: Technique: CT angiography of the abdomen, pelvis and bilateral lower extremities performed in the arterial phase of enhancement. Coronal and sagittal reformats, and well as rotating MIP images of the vessels generated at the workstation. Intravenous contrast dose: Visipaque 320, 99 cc Radiation dose: Total exam DLP = 1830.82 mGy-cm. This CT exam was performed using one or more of the following dose reduction techniques: Automated exposure control, adjustment of the mA and/or kV according to patient size, and/or use of iterative reconstruction technique. FINDINGS: CT ANGIOGRAPHY: ABDOMINAL AORTA:: A non aneurysmal but mildly atherosclerotic abdominal aorta is appreciate without significant stenosis. MAJOR AORTIC BRANCHES: Celiac [place]: Trace atherosclerotic plaques identified at the origin of the celiac artery without significant stenosis. Superior mesenteric artery: No significant stenosis is encountered. Inferior mesenteric artery: No significant stenosis is encountered. . Renal arteries: No significant stenosis is encountered. PELVIC ARTERIES: Trace bilateral common and superficial femoral arterial segmental atherosclerotic plaques are identified without significant stenosis. RIGHT LOWER EXTREMITY ARTERIES: Right Common Femoral: Unremarkable. Right Superficial Femoral: Limited atherosclerotic plaque seen at the approximate distal segments with moderate adductor canal stenoses identified distally. Right Profunda Femoris: Patent. Right Popliteal:A moderate to high-grade stenosis appreciate and/or of 65 cm percent at the mid and distal popliteal artery which nevertheless remains patent. Right Anterior Tibial: Moderate multilevel segmental stenoses are appreciated, appearing patent to the ankle. Right Tibioperoneal Trunk: Patent without significant stenosis. Right Posterior Tibial: Moderate multilevel segmental stenoses are appreciated, appearing patent to the ankle. Right Peroneal: Moderate multilevel segmental stenoses are appreciated, appearing patent to the ankle.. Right dorsalis pedis : Unremarkable. LEFT LOWER EXTREMITY ARTERIES: Left Common Femoral: Mild segmental stenosis identified. Left Superficial Femoral: Multilevel [id number] stenoses are identified at various mid and distal left SFA segments with moderate to high-grade stenoses identified at the level of the adductor canal proximal to the left popliteal artery.. Left Profunda Femoris: Patent. Left Popliteal: Moderate distal popliteal artery stenosis noted with the vessel remaining patent throughout. Left Anterior Tibial: Widely patent without definite significant stenosis to the ankle. Left Tibioperoneal Trunk: Moderate to severely diseased. Left Posterior Tibial: Occluded proximally limited distal reconstitution near the ankle. Left Peroneal: Appears patent to the ankle without a high-grade stenosis. Left Dorsalis pedis: Appears patent without high-grade stenosis evident. NON-ANGIOGRAPHIC ASPECT OF THE EXAM: LOWER THORAX: Cardiomegaly, no pleural or pericardial effusion. No definite infiltrate bilaterally. LIVER: Unremarkable. No gross lesion or ductal dilatation. GALLBLADDER AND BILE DUCTS: Prior cholecystectomy. PANCREAS: Unremarkable. No gross lesion or ductal dilatation. SPLEEN: Unremarkable. ADRENALS: Bilateral adrenal hyperplasia is suggested. No focal adrenal mass bilaterally. KIDNEYS AND URETERS: A tiny lucency at the mid pole left kidney seen anteriorly suggestive of a small cysts 9 mm greatest dimension, too small to characterize. No hydronephrosis. STOMACH AND BOWEL: Unremarkable. No obstruction. No gross mural thickening. APPENDIX: None identified. PERITONEUM: Unremarkable. No free fluid. No free air. LYMPH NODES: Unremarkable. No enlarged lymph nodes. BLADDER: Unremarkable. REPRODUCTIVE: Unremarkable. BONES: Patient status post L4-5 posterior spinal fusion with hardware generating artifacts limiting the evaluation. OTHER FINDINGS: None. IMPRESSION: 1. 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 Occluded left [employer]ION with moderate to severely disease left peroneal artery. 2. Numeral high-grade stenosis distal left SFA E with bilateral common and right center femoral arteries otherwise widely patent. 3. Limited visceral pathology in abdomen pelvis as discussed above. 4. Prior cholecystectomy.
--- NOTE | 2018-04-01 15:23 | CARD ---
APPROVED REPORT EKG Measurement Heart [id number] <Conclusion> Normal sinus rhythm Inferior infarct, age undetermined Anteroseptal infarct, age undetermined Abnormal ECG
[2018-04-01] MEDS ORDERED: Mineral Oil Light Sterile 25 ml ONE (17:46)
[2018-04-01] MEDS ORDERED: Lidocaine 2% Inj (20ml) ONE (17:46)
[2018-04-01] MEDS ORDERED: Bupivacaine HCl 0.5% PF (30 ml) Inj ONE (17:46)
[2018-04-01] MEDS ORDERED: Bacitracin Ointment 30 GM TUBE ONE (17:47)
[2018-04-01] MEDS ORDERED: Lidocaine 1% Inj (20ml) IJ ONE (17:56)
[2018-04-01] MEDS ORDERED: Bupivacaine 0.5% Inj(30mL) IJ ONE (17:56)
[2018-04-01] MEDS ORDERED: Dextrose 5%/0.9% NS 1,000 ML IV SCH (18:00)
[2018-04-01] MEDS: Heparin 25,000units in D5W 25,000 UNITS/250 ML BAG IV SCH ×2 (18:04)
--- NOTE | 2018-04-01 18:29 | CP.PCM.CON ---
History of Present Illness - History of Present Illness History of Present Illness: Consultation for evaluation of NSTEMI/ gas gangrene and severe PVOD HPI: 72 year old female with hx of HTN, DM, CAD s/p angioplasty done in [address] [facility], stopped taking her medications last year presenting after sustaining a mechanical fall, brought in by her son and noted to be septic with RLE gas gangrene. TnI +Ve with Echo showing apical hypokinesis. Review of Systems - Review of Systems Systems not reviewed;Unavailable: Acuity of Condition All systems: reviewed and no additional remarkable complaints except - EENT Eyes: As Per HPI Ears: As Per HPI Nose/Mouth/Throat: As Per HPI - Breasts Breasts: As Per HPI - Cardiovascular Cardiovascular: As Per HPI - Respiratory Respiratory: As Per HPI - Gastrointestinal Gastrointestinal: As Per HPI - Genitourinary Genitourinary: As Per HPI - Reproductive: Female Reproductive:Female: As Per HPI - Menstruation Menstruation: As Per HPI - Musculoskeletal Musculoskeletal: As Per HPI - Integumentary Integumentary: As Per HPI - Neurological Neurological: As Per HPI - Psychiatric Psychiatric: As Per HPI - Endocrine Endocrine: As Per HPI - Hematologic/Lymphatic Hematologic: As Per HPI Past Patient History - Past Medical History & Family History Past Medical History?: Yes Past Family History: Reviewed and not pertinent - Past Social History Smoking Status: Former Smoker - CARDIAC Hx Cardiac Disorders: Yes Hx Hypertension: Yes - PULMONARY Hx Respiratory Disorders: Yes Hx Asthma: Yes - NEUROLOGICAL Hx Neurological Disorder: No - HEENT Hx HEENT Problems: Yes Other/Comment: Uses eye glasses. - RENAL Hx Chronic Kidney Disease: No - ENDOCRINE/METABOLIC Hx Endocrine Disorders: Yes Hx Diabetes Mellitus Type 2: Yes - HEMATOLOGICAL/ONCOLOGICAL Hx Blood Disorders: No - INTEGUMENTARY Other/Comment: Scaly bilateral lower legs. - MUSCULOSKELETAL/RHEUMATOLOGICAL Hx Musculoskeletal Disorders: Yes Hx Falls: Yes Hx Unsteady Gait: Yes - GASTROINTESTINAL Hx Gastrointestinal Disorders: No - GENITOURINARY/GYNECOLOGICAL Hx Genitourinary Disorders: No - PSYCHIATRIC Hx Psychophysiologic Disorder: No Hx Substance Use: No - SURGICAL HISTORY Hx Surgeries: No - ANESTHESIA Hx Anesthesia: No Hx Anesthesia Reactions: No Hx Malignant Hyperthermia: No Has any member of the family had a problem w/ anesthesia?: No Meds Allergies/Adverse Reactions: Allergies Allergy/AdvReac Type Severity Reaction Status Date / Time No Known Allergies Allergy Verified 03/30/18 14:43 - Medications Medications: Current Medications Acetaminophen (Tylenol 325mg Tab) 650 mg PO Q6H PRN PRN Reason: Pain, Mild (1-3) Last Admin: 03/31/18 07:44 Dose: 650 mg Acetaminophen (Tylenol 325mg Tab) 650 mg PO Q6H PRN PRN Reason: Fever >100.4 F Aspirin (Aspirin) 325 mg PO DAILY [facility] Last Admin: 04/01/18 12:14 Dose: Not Given Atorvastatin Calcium (Lipitor) 40 mg PO DAILY [facility] Last Admin: 04/01/18 12:08 Dose: Not Given Piperacillin Sod/Tazobactam (Sod 3.375 gm/ Sodium Chloride) 100 mls @ 100 mls/ hr IVPB Q6 SARAH PRN Reason: Protocol Last Admin: 04/01/18 18:00 Dose: 100 mls/hr Vancomycin HCl 1 gm/ Sodium (Chloride) 250 mls @ 166.667 mls/hr IVPB Q12 SARAH PRN Reason: Protocol Last Admin: 04/01/18 10:08 Dose: 166.667 mls/hr Heparin Sodium/Dextrose (Heparin 25,000 Units/250ml In D5w) 25,000 units in 250 mls @ 10 mls/hr IV .Q24H SARAH PRN Reason: Protocol Dextrose/Sodium Chloride (Dextrose 5%/0.9% Ns 1000 Ml) 1,000 mls @ 0 mls/hr IV .Q0M SARAH PRN Reason: Per Protocol Stop: 04/02/18 17:56 Insulin Detemir (Levemir) 18 units SC HS [facility] Insulin Human Lispro (Humalog) 0 units SC ACHS [facility] PRN Reason: Protocol Last Admin: 04/01/18 16:36 Dose: Not Given Insulin Human Lispro (Humalog) 8 units SC AC [facility] Metoprolol Tartrate (Lopressor) 25 mg PO Q12 [facility] Last Admin: 04/01/18 12:08 Dose: Not Given Physical Exam - Constitutional Appears: Well - Head Exam Head Exam: ATRAUMATIC, NORMAL INSPECTION, NORMOCEPHALIC - Eye Exam Eye Exam: EOMI, Normal appearance, PERRL Pupil Exam: NORMAL ACCOMODATION, PERRL - ENT Exam ENT Exam: Mucous Membranes Moist, Normal Exam - Neck Exam Neck exam: Positive for: Normal Inspection - Respiratory Exam Respiratory Exam: Rales, NORMAL BREATHING PATTERN - Cardiovascular Exam Cardiovascular Exam: REGULAR RHYTHM, RRR, Systolic Murmur - GI/Abdominal Exam GI & Abdominal Exam: Normal Bowel Sounds, Soft. absent: Tenderness - Extremities Exam Additional comments: venous stasis, dermal thickening with foul smelling discharge, cellulitic changes - Back Exam Back exam: NORMAL INSPECTION - Neurological Exam Neurological exam: Alert, CN II-XII Intact, Oriented x3 - Psychiatric Exam Psychiatric exam: Normal Affect, Normal Mood - Skin Skin Exam: Dry, Intact, Normal Color, Warm Results - Vital Signs Recent Vital Signs: Last Vital Signs Temp 98.8 F 04/01/18 16:00 Pulse 90 04/01/18 16:00 Resp 16 04/01/18 16:00 BP 106/52 L 04/01/18 16:00 Pulse Ox 100 04/01/18 16:00 - Labs Result Diagrams: 04/01/18 04:40 04/01/18 04:40 Labs: Laboratory Results - last 24 hr 03/31/18 03/31/18 04/01/18 21:07 23:14 04:40 WBC RBC Hgb Hct MCV MCH MCHC RDW Plt Count PT 13.7 H INR 1.2 APTT 29.2 Sodium 138 Potassium 3.9 Chloride 100 Carbon Dioxide 28 Anion Gap 14 BUN 25 H Creatinine 0.6 L Est GFR ( Amer) > 60 Est GFR (Non-Af Amer) > 60 POC Glucose (mg/dL) 232 H Random Glucose 272 H Hemoglobin A1c Calcium 8.5 Total Bilirubin 0.4 AST 25 ALT 28 Alkaline Phosphatase 110 Total Protein 6.2 L Albumin 2.4 L Globulin 3.9 Albumin/Globulin Ratio 0.6 L Triglycerides 77 Cholesterol 114 LDL Cholesterol Direct 65 HDL Cholesterol 22 L TSH 3rd Generation 0.67 Blood Type Blood Type Confirm Antibody Screen Crossmatch BBK History Checked 04/01/18 04/01/18 04/01/18 04:40 04:40 04:40 WBC 15.1 H RBC 3.26 L Hgb 8.6 L Hct 26.8 L MCV 82.0 MCH 26.5 L MCHC 32.3 L RDW 14.2 Plt Count 387 PT INR APTT 96.3 H D Sodium Potassium Chloride Carbon Dioxide Anion Gap BUN Creatinine Est GFR ( Amer) Est GFR (Non-Af Amer) POC Glucose (mg/dL) Random Glucose Hemoglobin A1c 12.9 H Calcium Total Bilirubin AST ALT Alkaline Phosphatase Total Protein Albumin Globulin Albumin/Globulin Ratio Triglycerides Cholesterol LDL Cholesterol Direct HDL Cholesterol TSH 3rd Generation Blood Type Blood Type Confirm Antibody Screen Crossmatch BBK History Checked 04/01/18 04/01/18 04/01/18 05:37 09:15 09:51 WBC RBC Hgb Hct MCV MCH MCHC RDW Plt Count PT INR APTT Sodium Potassium Chloride Carbon Dioxide Anion Gap BUN Creatinine Est GFR ( Amer) Est GFR (Non-Af Amer) POC Glucose (mg/dL) 265 H Random Glucose Hemoglobin A1c Calcium Total Bilirubin AST ALT Alkaline Phosphatase Total Protein Albumin Globulin Albumin/Globulin Ratio Triglycerides Cholesterol LDL Cholesterol Direct HDL Cholesterol TSH 3rd Generation Blood Type A NEGATIVE Blood Type Confirm A NEGATIVE Antibody Screen Negative Crossmatch See Detail BBK History Checked No verified bt 04/01/18 04/01/18 04/01/18 11:26 12:25 16:20 WBC RBC Hgb Hct MCV MCH MCHC RDW Plt Count PT INR APTT 38.9 H D Sodium Potassium Chloride Carbon Dioxide Anion Gap BUN Creatinine Est GFR ( Amer) Est GFR (Non-Af Amer) POC Glucose (mg/dL) 241 H 152 H Random Glucose Hemoglobin A1c Calcium Total Bilirubin AST ALT Alkaline Phosphatase Total Protein Albumin Globulin Albumin/Globulin Ratio Triglycerides Cholesterol LDL Cholesterol Direct HDL Cholesterol TSH 3rd Generation Blood Type Blood Type Confirm Antibody Screen Crossmatch BBK History Checked Assessment & Plan (1) Preop cardiovascular exam Assessment and Plan: High risk for perioperative cardiac event can proceed only if emergent otherwise will need coronary angiogram prior to surgical intervention Status: Acute (2) Elevated troponin Assessment and Plan: IV heparin asa, plavix will need invasive w/u prior to any surgery Status: Acute (3) PVD (peripheral vascular disease) Assessment and Plan: severe bilateral disease will need revascularization Status: Acute (4) Fall Status: Acute Priority: Medium (5) Foot infection Status: Acute (6) Gas gangrene Status: Acute (7) NSTEMI (non-ST elevated myocardial infarction) Assessment and Plan: IV heparin asa, plavix statins acei bb Status: Acute
[2018-04-01] MEDS ORDERED: Etomidate 20 mg/10ml Inj IV ONE (18:44)
[2018-04-01] MEDS ORDERED: Lidocaine 2% Jelly (5 ml) TOP ONE (18:46)
[2018-04-01] MEDS ORDERED: Sodium Chloride 0.9% 500 ML IV ONE (19:08)
[2018-04-01] MEDS ORDERED: Midazolam 2 MG/2 ML VIAL ONE (19:17)
[2018-04-01] MEDS ORDERED: Liquid Adhesive TOP ONE (19:17)
[2018-04-01] MEDS ORDERED: Propofol 10 mg/ml Inj (20 ML) ONE (19:20)
[2018-04-01] MEDS ORDERED: Lidocaine 2% Inj (20ml) IJ ONE (19:25)
[2018-04-01] MEDS ORDERED: Bupivacaine HCl 0.5% PF (30 ml) Inj IJ ONE (19:25)
--- NOTE | 2018-04-01 20:01 | PCM.SURG1 ---
Surgeon's Initial Post Op Note - Surgeon's Notes Surgeon: Dr. Smith Bed Rubber: Dr. Olmstead PGY-1, Dr. Clay PGY-1 Type of Anesthesia: IV Sedation, Local Anesthesia Administered By: Dr. Wadsworth Pre-Operative Diagnosis: right foot gas gangrene with abscess and cellulitis Operative Findings: see operative report. I: 20cc 1:1 mix 2% Lidocaine plain and 0.5% Marcaine plain. M: dirty + clean wound cultures, pulse lavage, 1/2" iodoform packing, betadine soaked Adaptic, ABD, DSD Post-Operative Diagnosis: right foot gas gangrene with abscess and cellulitis Operation Performed: right foot incision and drainage of abscess with gas gangrene Specimen/Specimens Removed: non-viable soft tissue Estimated Blood Loss: EBL {In ML}: 5 Blood Products Given: N/A Drains Used: No Drains Post-Op Condition: Fair Date of Surgery/Procedure: 04/01/18 Time of Surgery/Procedure: 20:01
--- NOTE | 2018-04-01 21:26 | PN ---
ENDOCRINOLOGY FOLLOWUP NOTE DATE: 04/01/2018 LOCATION: In room 433, ICU. SUBJECTIVE: This is a 72-year-old female with recent uncontrolled type 2 insulin-requiring diabetes presenting here with gas gangrene in the right foot and multiple ulcerations otherwise in the left foot with marked hyperglycemic accelerations and is now being followed closely for metabolic management. Her glucose levels today are fluctuating, but improved and the glucose levels have ranged from 152 to 241 and 265 mg/dL. Her hemoglobin A1c is 12.9%, which is quite elevated as noted and indicative of very poor outpatient metabolic control of her diabetic condition related to drug omission and poor adherence to her diabetic regimen. Her latest chemistry showed a BUN of 25, sodium 138, potassium 3.9, chloride 100, CO2 of 28, glucose 272, and creatinine 0.6. ASSESSMENT: This is a 72-year-old female with uncontrolled and decompensated type 2 insulin-requiring diabetes presenting here with marked hyperglycemic accelerations and dehydration related to poor adherence to her diabetic regimen and lack of recent medical followup thereof. She also has diabetic neuropathic ulcerations with necrotic ulcers in the right foot and similar lesions in the left foot with severe underlying peripheral arterial vasculopathy. She has diabetic microvascular complications of retinopathy, polyneuropathy, and nephropathy related to dehydration. She also has diabetic macrovascular complications of coronary artery disease and peripheral arterial disease and vasculopathy. PLAN OF MANAGEMENT: As discussed with the patient and the staff. We will modify once again her basal and bolus insulin regimen and increase the Humalog given preprandially to 8 units subcutaneously t.i.d. before meals as ordered. We will titrate incremental as indicated to optimize metabolic control. We will also continue the low-dose correction scale using Humalog insulin as given. We will modify also her basal insulin given at bedtime with Levemir to be given as 18 units subcutaneously at bedtime daily to start tonight. We will titrate incremental as indicated to optimize metabolic control. We will also continue the low-dose correction scale using Humalog insulin to obviate hypoglycemia and detailed orders have been given. We will obtain serial chemistries and supplement accordingly as needed. We will follow. Aparna Yang MD [facility] # [id number]
[2018-04-01] MEDS: Sodium Chloride 0.9% 1,000 ML IV SCH (21:54)
[2018-04-01] MEDS ORDERED: Insulin Detemir 100 Units/ml Inj SC SCH (22:00)
[2018-04-02] MEDS: Piperacillin/Tazobact 3.375 GM in Sodium Chloride 0.9% 100 ML IVPB SCH ×4 (03:17→21:15)
[2018-04-02 05:29] LABS: HEMOGLOBIN 8.9 g/dL (12.0-16.0); MEAN CELL VOLUME 83.5 fl (81.0-99.0); MEAN CORPUSCULAR HEMOGLOBIN 26.7 pg (27.0-31.0); RBC 3.32 Mil/uL (3.80-5.20); RED CELL DISTRIBUTION WIDTH 14.5 % (11.5-14.5); WHITE BLOOD COUNT 14.9 K/uL (4.8-10.8)
[2018-04-02 05:38] LABS: BLOOD UREA NITROGEN 20 mg/dl (7-17); CALCIUM 8.2 mg/dL (8.4-10.2); GFR AFRICAN-AMERICAN > 60; GFR NON-AFRICAN AMERICAN > 60
[2018-04-02] MEDS: Insulin Lispro (humaLOG) 100 Units/ml Inj SC SCH ×4 (06:30→21:49)
--- NOTE | 2018-04-02 07:29 | CP.PCM.PN ---
Subjective - Date & Time of Evaluation Date of Evaluation: 04/02/18 Time of Evaluation: 07:29 - Subjective Subjective: Podiatry - Dr. Smith 72F seen and evaluated in ICU for RLE gas gangrene and bilateral lower extremity cellulitis with multiple wounds. Patient is POD#1 right foot incision and drainage of abscess with gas gangrene (DOS 04/01/18). Patient resting in bed comfortably, NAD. Son present at bedside. Patient states she tolerated the surgery well with pain controlled. No complaints to LLE. Dressings to bilateral LE remain clean/dry/intact. Denies N/V/F/D/C. No SOB today. Objective - Vital Signs/Intake and Output Vital Signs (last 24 hours): Temp Pulse Resp BP Pulse Ox 99.3 F 86 26 H 114/68 98 04/02/18 04:00 04/02/18 06:00 04/02/18 06:00 04/02/18 06:00 04/02/18 06:00 Intake and Output: 04/02/18 04/02/18 06:59 18:59 Intake Total 1700 Balance 1700 - Medications Medications: Current Medications Acetaminophen (Tylenol 325mg Tab) 650 mg PO Q6H PRN PRN Reason: Pain, Mild (1-3) Last Admin: 03/31/18 07:44 Dose: 650 mg Acetaminophen (Tylenol 325mg Tab) 650 mg PO Q6H PRN PRN Reason: Fever >100.4 F Aspirin (Aspirin) 325 mg PO DAILY [facility] Last Admin: 04/01/18 12:14 Dose: Not Given Atorvastatin Calcium (Lipitor) 40 mg PO DAILY [facility] Last Admin: 04/01/18 12:08 Dose: Not Given Piperacillin Sod/Tazobactam (Sod 3.375 gm/ Sodium Chloride) 100 mls @ 100 mls/ hr IVPB Q6 SARAH PRN Reason: Protocol Last Admin: 04/02/18 03:17 Dose: 100 mls/hr Vancomycin HCl 1 gm/ Sodium (Chloride) 250 mls @ 166.667 mls/hr IVPB Q12 SARAH PRN Reason: Protocol Last Admin: 04/01/18 21:53 Dose: 166.667 mls/hr Heparin Sodium/Dextrose (Heparin 25,000 Units/250ml In D5w) 25,000 units in 250 mls @ 10 mls/hr IV .Q24H [facility] PRN Reason: Protocol Last Admin: 04/01/18 18:04 Dose: 14 mls/hr Dextrose/Sodium Chloride (Dextrose 5%/0.9% Ns 1000 Ml) 1,000 mls @ 0 mls/hr IV .Q0M SARAH PRN Reason: Per Protocol Stop: 04/02/18 17:56 Sodium Chloride (Sodium Chloride 0.9%) 1,000 mls @ 100 mls/hr IV .Q10H [facility] Last Admin: 04/01/18 21:54 Dose: 100 mls/hr Insulin Detemir (Levemir) 18 units SC HS [facility] Last Admin: 04/01/18 21:59 Dose: 18 units Insulin Human Lispro (Humalog) 0 units SC ACHS [facility] PRN Reason: Protocol Last Admin: 04/02/18 06:30 Dose: Not Given Insulin Human Lispro (Humalog) 8 units SC AC [facility] Last Admin: 04/02/18 07:00 Dose: 8 units Metoprolol Tartrate (Lopressor) 25 mg PO Q12 [facility] Last Admin: 04/01/18 21:59 Dose: 25 mg Morphine Sulfate (Morphine) 2 mg IVP Q4 PRN PRN Reason: pain 4-10 Last Admin: 04/01/18 23:03 Dose: 2 mg Ondansetron HCl (Zofran Odt) 4 mg PO Q8H PRN PRN Reason: Nausea/Vomiting - Labs Labs: 04/02/18 04:20 04/02/18 04:20 PT 13.7 Seconds (9.8-13.1) H 03/31/18 23:14 INR 1.2 (0.9-1.2) 03/31/18 23:14 APTT 50.8 Seconds (25.6-37.1) H 04/02/18 05:05 - Constitutional Appears: Well, Non-toxic, No Acute Distress - Extremities Exam Additional comments: VASC: DP/PT pulses are non-palpable bilaterally, Cap refill time: < 3 sec to all digits, Temp gradient: warm to warm b/l, non-pitting edema noted extending from foot proximally to the mid leg level bilaterally DERM: Multiple wounds on bilateral lower extremity: severe malodor present from bilateral LE with severe lichenifications, erythema noted extending from mid leg to feet on bilateral LE (R>L) though improving from previous visit Right: Circular surgical wound at previous area of boggy necrosis measuring approximately 4.5 x 4.5 cm extending down to subcutaneous tissue - tracking towards medial 1st MPJ incision; serosanguinous drainage present; no purulence able to be expressed; (+)probe to bone. Linear incision measuring approximately 3.5cm at medial 1st MPJ extending to capsule; surrounding tissue appears fibrogranular; mild serosanguinous drainage present; no purulene able to be expressed. Circular surgical wound located at the plantar aspect of heel measuring approximately 7.5 x 5.5 cm extending down to subcutaneous tissue - noted to have 2 areas that tunnel approximately 3cm deep - #1 at 6 o'clock and # 2 at 9 o'clock; serosanguinous drainage present; no purulence able to be expressed; (+)probe to bone; hyperkeratotic rim present. Superficial wound noted to lateral aspect of leg noted to have a 100% granular base; sanguinous drainage present; absent purulence; absent malodor. Left: Circular necrotic wound measuring approx 2.5 cm x 2.5 cm x 0.3 cm present on the plantar aspect of the 5th metatarsal head - noted to have a hard, necrotic base with hyperkeratotic rim, no tunneling, no tracking, no undermining , no active drainage. Superficial wound noted to lateral aspect of leg with a 100% granular base. NEURO: Protective sensation grossly diminished ORTHO: Pain on palpation to all wounds; pain upon ROM bilateral LE. No pain on palpation of the calf b/l - Neurological Exam Neurological Exam: Alert, Awake, Oriented x3 Assessment and Plan - Assessment and Plan (Free Text) Assessment: 72 year old female patient with PMHx of DM, HTN was evaluated for 1) gas gangrene of the right forefoot wound 2) multiple necrotic wounds b/l LE 3) Cellulitis POD#1 right foot incision and drainage of abscess with gas gangrene (DOS 04/01/18 ) Plan: Patient seen and evaluated Discussed with attending, Dr. Smith Afebriameena, WBC 14.9, ESR >120 Pre-bedside I&D XR bilateral LE: Diffuse radiolucency on the medial aspect of the 1st MTPJ of the right foot within the soft tissue consistent with soft tissue emphysema -Post I&D foot and tib-fib XR: No signs of soft tissue emphysema Venous duplex: no evidence of DVT Right foot WCx: enterobacter aerogenes, beta hemolytic strep group B Intra-op dirty and clean WCx obtained, f/u Continue abx per ID - Vancomycin 1g IV, Zosyn 3.375g IV Continue local wound care: saline flush, 1/4" packing, betadine, DSD Limb prognosis poor - recommend RLMary LENTZ -Patient agreeable to R MARY CARMEN -Dr. Jimenez on board, plan for possible revasc Podiatry will continue to follow
[2018-04-02] MEDS ORDERED: Insulin Lispro (humaLOG) 100 Units/ml Inj SC SCH ×2 (07:30→16:30)
--- NOTE | 2018-04-02 08:48 | CP.PCM.PN ---
Subjective - Date & Time of Evaluation Date of Evaluation: 04/02/18 Time of Evaluation: 08:47 - Subjective Subjective: feeling fine repeat TnI pending echo - apical hypokinesis c/w distal LAD disease / stenosis Objective - Vital Signs/Intake and Output Vital Signs (last 24 hours): Temp Pulse Resp BP Pulse Ox 99.1 F 85 16 122/63 99 04/02/18 08:00 04/02/18 08:00 04/02/18 08:00 04/02/18 08:00 04/02/18 08:00 Intake and Output: 04/02/18 04/02/18 06:59 18:59 Intake Total 1700 320 Balance 1700 320 - Medications Medications: Current Medications Acetaminophen (Tylenol 325mg Tab) 650 mg PO Q6H PRN PRN Reason: Pain, Mild (1-3) Last Admin: 03/31/18 07:44 Dose: 650 mg Acetaminophen (Tylenol 325mg Tab) 650 mg PO Q6H PRN PRN Reason: Fever >100.4 F Aspirin (Aspirin) 325 mg PO DAILY [facility] Last Admin: 04/01/18 12:14 Dose: Not Given Atorvastatin Calcium (Lipitor) 40 mg PO DAILY [facility] Last Admin: 04/01/18 12:08 Dose: Not Given Clopidogrel Bisulfate (Plavix) 75 mg PO DAILY [facility] Piperacillin Sod/Tazobactam (Sod 3.375 gm/ Sodium Chloride) 100 mls @ 100 mls/ hr IVPB Q6 SARAH PRN Reason: Protocol Last Admin: 04/02/18 03:17 Dose: 100 mls/hr Vancomycin HCl 1 gm/ Sodium (Chloride) 250 mls @ 166.667 mls/hr IVPB Q12 SARAH PRN Reason: Protocol Last Admin: 04/01/18 21:53 Dose: 166.667 mls/hr Heparin Sodium/Dextrose (Heparin 25,000 Units/250ml In D5w) 25,000 units in 250 mls @ 10 mls/hr IV .Q24H SARAH PRN Reason: Protocol Last Admin: 04/01/18 18:04 Dose: 14 mls/hr Dextrose/Sodium Chloride (Dextrose 5%/0.9% Ns 1000 Ml) 1,000 mls @ 0 mls/hr IV .Q0M SARAH PRN Reason: Per Protocol Stop: 05/22/18 17:56 Sodium Chloride (Sodium Chloride 0.9%) 1,000 mls @ 100 mls/hr IV .Q10H [facility] Last Admin: 04/01/18 21:54 Dose: 100 mls/hr Insulin Detemir (Levemir) 18 units SC HS [facility] Last Admin: 04/01/18 21:59 Dose: 18 units Insulin Human Lispro (Humalog) 0 units SC ACHS [facility] PRN Reason: Protocol Last Admin: 04/02/18 06:30 Dose: Not Given Insulin Human Lispro (Humalog) 8 units SC AC [facility] Last Admin: 04/02/18 07:00 Dose: 8 units Metoprolol Tartrate (Lopressor) 25 mg PO Q12 [facility] Last Admin: 04/01/18 21:59 Dose: 25 mg Morphine Sulfate (Morphine) 2 mg IVP Q4 PRN PRN Reason: pain 4-10 Last Admin: 04/01/18 23:03 Dose: 2 mg Ondansetron HCl (Zofran Odt) 4 mg PO Q8H PRN PRN Reason: Nausea/Vomiting - Labs Labs: 04/02/18 04:20 04/02/18 04:20 PT 13.7 Seconds (9.8-13.1) H 03/31/18 23:14 INR 1.2 (0.9-1.2) 03/31/18 23:14 APTT 50.8 Seconds (25.6-37.1) H 04/02/18 05:05 - Constitutional Appears: Well - Head Exam Head Exam: ATRAUMATIC, NORMAL INSPECTION, NORMOCEPHALIC - Eye Exam Eye Exam: EOMI, Normal appearance, PERRL Pupil Exam: NORMAL ACCOMODATION, PERRL - ENT Exam ENT Exam: Mucous Membranes Moist, Normal Exam - Neck Exam Neck Exam: Full ROM, Normal Inspection. absent: Lymphadenopathy - Respiratory Exam Respiratory Exam: Clear to Ausculation Bilateral, NORMAL BREATHING PATTERN - Cardiovascular Exam Cardiovascular Exam: REGULAR RHYTHM, +S1, +S2. absent: Murmur - GI/Abdominal Exam GI & Abdominal Exam: Soft, Normal Bowel Sounds. absent: Tenderness - Extremities Exam Extremities Exam: Full ROM, Normal Capillary Refill, Normal Inspection. absent : Joint Swelling, Pedal Edema - Back Exam Back Exam: NORMAL INSPECTION - Neurological Exam Neurological Exam: Alert, Awake, CN II-XII Intact, Normal Gait, Oriented x3 - Psychiatric Exam Psychiatric exam: Normal Affect, Normal Mood - Skin Skin Exam: Dry, Intact, Normal Color, Warm Assessment and Plan (1) Preop cardiovascular exam Assessment & Plan: High risk for perioperative cardiac event will need cardiac cath prior to any surgical procedure Status: Acute (2) Elevated troponin Assessment & Plan: IV heparin asa, plavix statins bb Echo shows distal apical and septal hypokinesis Status: Acute (3) PVD (peripheral vascular disease) Assessment & Plan: will need peripheral angiogram for possible revascularization after cardiac cath dapt iv heparin Status: Acute (4) Fall Status: Acute (5) Foot infection Status: Acute (6) Gas gangrene Status: Resolved (7) NSTEMI (non-ST elevated myocardial infarction) Assessment & Plan: rx per ACS protcol Status: Acute
--- NOTE | 2018-04-02 09:01 | CP.PCM.PN ---
Subjective - Date & Time of Evaluation Date of Evaluation: 04/02/18 Time of Evaluation: 09:01 - Subjective Subjective: General Surgery Progress Note 72F seen this AM for gas gangrene of RLE with multiple infected wounds. Patient states that she is feeling well this morning and that I and D with podiatry went without complication yesterday. Patient denies any acute overnight events or new LE complaints. States that her pain is well controlled at this time. Denies an N/V/F/C/CP/SOB/D Objective - Vital Signs/Intake and Output Vital Signs (last 24 hours): Temp Pulse Resp BP Pulse Ox 99.1 F 85 16 122/63 99 04/02/18 08:00 04/02/18 08:00 04/02/18 08:00 04/02/18 08:00 04/02/18 08:00 Intake and Output: 04/02/18 04/02/18 06:59 18:59 Intake Total 1700 320 Balance 1700 320 - Medications Medications: Current Medications Acetaminophen (Tylenol 325mg Tab) 650 mg PO Q6H PRN PRN Reason: Pain, Mild (1-3) Last Admin: 03/31/18 07:44 Dose: 650 mg Acetaminophen (Tylenol 325mg Tab) 650 mg PO Q6H PRN PRN Reason: Fever >100.4 F Aspirin (Aspirin) 325 mg PO DAILY [facility] Last Admin: 04/01/18 12:14 Dose: Not Given Atorvastatin Calcium (Lipitor) 40 mg PO DAILY [facility] Last Admin: 04/01/18 12:08 Dose: Not Given Clopidogrel Bisulfate (Plavix) 75 mg PO DAILY [facility] Piperacillin Sod/Tazobactam (Sod 3.375 gm/ Sodium Chloride) 100 mls @ 100 mls/ hr IVPB Q6 SARAH PRN Reason: Protocol Last Admin: 04/02/18 03:17 Dose: 100 mls/hr Vancomycin HCl 1 gm/ Sodium (Chloride) 250 mls @ 166.667 mls/hr IVPB Q12 SARAH PRN Reason: Protocol Last Admin: 04/01/18 21:53 Dose: 166.667 mls/hr Heparin Sodium/Dextrose (Heparin 25,000 Units/250ml In D5w) 25,000 units in 250 mls @ 10 mls/hr IV .Q24H SARAH PRN Reason: Protocol Last Admin: 04/01/18 18:04 Dose: 14 mls/hr Dextrose/Sodium Chloride (Dextrose 5%/0.9% Ns 1000 Ml) 1,000 mls @ 0 mls/hr IV .Q0M [facility] PRN Reason: Per Protocol Stop: 04/02/18 17:56 Sodium Chloride (Sodium Chloride 0.9%) 1,000 mls @ 100 mls/hr IV .Q10H [facility] Last Admin: 04/01/18 21:54 Dose: 100 mls/hr Insulin Detemir (Levemir) 18 units SC HS [facility] Last Admin: 04/01/18 21:59 Dose: 18 units Insulin Human Lispro (Humalog) 0 units SC ACHS [facility] PRN Reason: Protocol Last Admin: 04/02/18 06:30 Dose: Not Given Insulin Human Lispro (Humalog) 8 units SC AC [facility] Last Admin: 04/02/18 07:00 Dose: 8 units Metoprolol Tartrate (Lopressor) 25 mg PO Q12 [facility] Last Admin: 04/01/18 21:59 Dose: 25 mg Morphine Sulfate (Morphine) 2 mg IVP Q4 PRN PRN Reason: pain 4-10 Last Admin: 04/01/18 23:03 Dose: 2 mg Ondansetron HCl (Zofran Odt) 4 mg PO Q8H PRN PRN Reason: Nausea/Vomiting - Labs Labs: 04/02/18 04:20 04/02/18 04:20 PT 13.7 Seconds (9.8-13.1) H 03/31/18 23:14 INR 1.2 (0.9-1.2) 03/31/18 23:14 APTT 50.8 Seconds (25.6-37.1) H 04/02/18 05:05 - Constitutional Appears: Well, Non-toxic, No Acute Distress - Head Exam Head Exam: ATRAUMATIC, NORMOCEPHALIC - Extremities Exam Additional comments: Dressings noted to be C/D/I to RLE with no signs of strikethrough noted - Neurological Exam Neurological Exam: Alert, Awake, Oriented x3 - Psychiatric Exam Psychiatric exam: Normal Affect, Normal Mood Assessment and Plan - Assessment and Plan (Free Text) Assessment: 72F seen for RLE wounds one day s/p I and D by podiatry Plan: WBC 14.9 Afebrile Pain meds Abx Anticoags LE CTA: Mod/Sever diseased RLE three vessel runoff with single vessel runoff via the L anterior tib artery. Occluded L [employer] w/ mod/severe disease of left peroneal artery. Numerous high grade stenosis distal L SFA w/ bilateral common and right center femoral arteries otherwise widely patent. F/u WENDI/PVRs Vascular surgery consult placed - Dr. Lim for possible revascularization Will f/u recs
--- NOTE | 2018-04-02 12:59 | CP.PCM.CON ---
History of Present Illness - History of Present Illness History of Present Illness: Vascular surgery progress note 72F with PMHx of HTN, DM, PE, currently admitted to ICU after being found to have gas gangrene on right lower extremity. Patient underwent I and D of RLE with Podiatry yesterday. Current consultation is at request of Dr. Louie so see if any revascularization procedures can be performed. 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 Patient is AAO x 3 and NAD , resting in bed. States that pain is well controlled. Denies any new pedal or LE complaints at this time. Denies any recent N/V/F/C/CP/SOB/D Review of Systems - Review of Systems All systems: reviewed and no additional remarkable complaints except Review of Systems: as per HPI Past Patient History - Past Medical History & Family History Past Medical History?: Yes Past Family History: Reviewed and not pertinent - Past Social History Smoking Status: Former Smoker - CARDIAC Hx Cardiac Disorders: Yes Hx Hypertension: Yes - PULMONARY Hx Respiratory Disorders: Yes Hx Asthma: Yes - NEUROLOGICAL Hx Neurological Disorder: No - HEENT Hx HEENT Problems: Yes Other/Comment: Uses eye glasses. - RENAL Hx Chronic Kidney Disease: No - ENDOCRINE/METABOLIC Hx Endocrine Disorders: Yes Hx Diabetes Mellitus Type 2: Yes - HEMATOLOGICAL/ONCOLOGICAL Hx Blood Disorders: No - INTEGUMENTARY Other/Comment: Scaly bilateral lower legs. - MUSCULOSKELETAL/RHEUMATOLOGICAL Hx Musculoskeletal Disorders: Yes Hx Falls: Yes Hx Unsteady Gait: Yes - GASTROINTESTINAL Hx Gastrointestinal Disorders: No - GENITOURINARY/GYNECOLOGICAL Hx Genitourinary Disorders: No - PSYCHIATRIC Hx Psychophysiologic Disorder: No Hx Substance Use: No - SURGICAL HISTORY Hx Surgeries: No - ANESTHESIA Hx Anesthesia: No Hx Anesthesia Reactions: No Hx Malignant Hyperthermia: No Has any member of the family had a problem w/ anesthesia?: No Meds Allergies/Adverse Reactions: Allergies Allergy/AdvReac Type Severity Reaction Status Date / Time No Known Allergies Allergy Verified 03/30/18 14:43 - Medications Medications: Current Medications Acetaminophen (Tylenol 325mg Tab) 650 mg PO Q6H PRN PRN Reason: Pain, Mild (1-3) Last Admin: 03/31/18 07:44 Dose: 650 mg Acetaminophen (Tylenol 325mg Tab) 650 mg PO Q6H PRN PRN Reason: Fever >100.4 F Aspirin (Aspirin) 325 mg PO DAILY [facility] Last Admin: 04/02/18 09:22 Dose: 325 mg Atorvastatin Calcium (Lipitor) 40 mg PO DAILY [facility] Last Admin: 04/02/18 09:17 Dose: 40 mg Clopidogrel Bisulfate (Plavix) 75 mg PO DAILY [facility] Last Admin: 04/02/18 09:22 Dose: 75 mg Piperacillin Sod/Tazobactam (Sod 3.375 gm/ Sodium Chloride) 100 mls @ 100 mls/ hr IVPB Q6 [facility] PRN Reason: Protocol Last Admin: 04/02/18 09:24 Dose: 100 mls/hr Vancomycin HCl 1 gm/ Sodium (Chloride) 250 mls @ 166.667 mls/hr IVPB Q12 [facility] PRN Reason: Protocol Last Admin: 04/02/18 09:23 Dose: 166.667 mls/hr Heparin Sodium/Dextrose (Heparin 25,000 Units/250ml In D5w) 25,000 units in 250 mls @ 10 mls/hr IV .Q24H [facility] PRN Reason: Protocol Last Admin: 04/01/18 18:04 Dose: 14 mls/hr Dextrose/Sodium Chloride (Dextrose 5%/0.9% Ns 1000 Ml) 1,000 mls @ 0 mls/hr IV .Q0M [facility] PRN Reason: Per Protocol Stop: 04/02/18 17:56 Sodium Chloride (Sodium Chloride 0.9%) 1,000 mls @ 100 mls/hr IV .Q10H [facility] Last Admin: 04/01/18 21:54 Dose: 100 mls/hr Insulin Detemir (Levemir) 18 units SC HS [facility] Last Admin: 04/01/18 21:59 Dose: 18 units Insulin Human Lispro (Humalog) 0 units SC ACHS [facility] PRN Reason: Protocol Last Admin: 04/02/18 12:25 Dose: Not Given Insulin Human Lispro (Humalog) 8 units SC AC [facility] Last Admin: 04/02/18 07:00 Dose: 8 units Metoprolol Tartrate (Lopressor) 25 mg PO Q12 [facility] Last Admin: 04/02/18 09:17 Dose: 25 mg Morphine Sulfate (Morphine) 2 mg IVP Q4 PRN PRN Reason: pain 4-10 Last Admin: 04/02/18 09:06 Dose: 2 mg Ondansetron HCl (Zofran Odt) 4 mg PO Q8H PRN PRN Reason: Nausea/Vomiting Physical Exam - Constitutional Appears: Well, Non-toxic, No Acute Distress - Head Exam Head Exam: ATRAUMATIC, NORMOCEPHALIC - Eye Exam Eye Exam: EOMI, PERRL Pupil Exam: NORMAL ACCOMODATION, PERRL - ENT Exam ENT Exam: Mucous Membranes Moist, Normal Exam - Neck Exam Neck exam: Positive for: Full Rom. Negative for: Tenderness - Respiratory Exam Respiratory Exam: NORMAL BREATHING PATTERN. absent: Respiratory Distress - GI/Abdominal Exam GI & Abdominal Exam: Soft. absent: Distended, Firm, Guarding, Tenderness - Extremities Exam Additional comments: B/l LE dressings noted to be C/D/I Offloading boots noted to both feet Results - Vital Signs Recent Vital Signs: Last Vital Signs Temp 99.1 F 04/02/18 08:00 Pulse 76 04/02/18 12:00 Resp 16 04/02/18 12:00 BP 111/59 L 04/02/18 12:00 Pulse Ox 99 04/02/18 12:00 - Labs Result Diagrams: 04/02/18 04:20 04/02/18 04:20 Labs: Laboratory Results - last 24 hr 04/01/18 04/01/18 04/01/18 16:20 20:12 21:38 WBC RBC Hgb Hct MCV MCH MCHC RDW Plt Count APTT 50.4 H D Sodium Potassium Chloride Carbon Dioxide Anion Gap BUN Creatinine Est GFR ( Amer) Est GFR (Non-Af Amer) POC Glucose (mg/dL) 152 H 154 H Random Glucose Calcium 04/02/18 04/02/18 04/02/18 04:20 04:20 05:05 WBC 14.9 H RBC 3.32 L Hgb 8.9 L Hct 27.7 L MCV 83.5 MCH 26.7 L MCHC 32.0 L RDW 14.5 Plt Count 404 H APTT 50.8 H Sodium 139 Potassium 4.6 Chloride 101 Carbon Dioxide 30 Anion Gap 13 BUN 20 H Creatinine 0.7 Est GFR ( Amer) > 60 Est GFR (Non-Af Amer) > 60 POC Glucose (mg/dL) Random Glucose 239 H Calcium 8.2 L 04/02/18 04/02/18 05:44 11:30 WBC RBC Hgb Hct MCV MCH MCHC RDW Plt Count APTT Sodium Potassium Chloride Carbon Dioxide Anion Gap BUN Creatinine Est GFR ( Amer) Est GFR (Non-Af Amer) POC Glucose (mg/dL) 241 H 182 H Random Glucose Calcium Assessment & Plan - Assessment and Plan (Free Text) Assessment: 72F w/ chronic, infected b/l leg and foot wounds with possible future BKA assessed for possible revascularization procedures of b/l LE Plan: WBC 14.9 Afebrile Pain meds Abx Anticoags LE CTA: Mod/Sever diseased RLE three vessel runoff with single vessel runoff via the L anterior tib artery. 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 Numerous high grade stenosis distal L SFA w/ bilateral common and right center femoral arteries otherwise widely patent. F/u WENDI/PVRs Will f/u with recs from Dr. Lim on possible re-vascularization procedures
--- NOTE | 2018-04-02 13:07 | CARD ---
APPROVED REPORT EXAM: Two-dimensional and M-mode echocardiogram with Doppler and color Doppler. Other Information Quality : GoodRhythm : NSR INDICATION Pre-Op 2D DIMENSIONS IVSd1.20 (0.7-1.1cm)LVDd4.42 (3.9-5.9cm) LVOT Diameter1.99 (1.8-2.4cm)PWd1.35 (0.7-1.1cm) IVSs1.19 (0.8-1.2cm)LVDs4.39 (2.5-4.0cm) FS (%) 0.8 %PWs1.19 (0.8-1.2cm) M-Mode DIMENSIONS Left Atrium (MM)5.47 (2.5-4.0cm)IVSd1.47 (0.7-1.1cm) Aortic Root2.74 (2.2-3.7cm)LVDd5.03 (4.0-5.6cm) Aortic Cusp Exc.1.41 (1.5-2.0cm)PWd1.24 (0.7-1.1cm) IVSs1.88 cmFS (%) 36 % LVDs3.21 (2.0-3.8cm)PWs1.71 cm Aortic Valve AoV Peak Symbzmwd327.6cm/sAoV VTI62.5cmAO Peak GR.32mmHg LVOT Peak Wpeerwpm70.8cm/sLVOT VTI21.61cmAO Mean GR.20mmHg ISABEL (VMAX)0.88jf8OBG (VTI)0.54cm2 Mitral Valve MV E Arunwxvq953.3cm/sMV DECEL [id number] A Lczbygzm773.0cm/s MV XNJ46wtQ/A ratio0.9MVA (PHT)3.30cm2 TDI Lateral E' Peak V4.81cm/sMedial E' Peak V8.80cm/sE/Lateral E'27.5 E/Medial E'15.0 Pulmonary Valve PV Peak Msrogmmm054.0cm/s LEFT VENTRICLE The left ventricle is normal size. There is normal left ventricular wall thickness. Left ventricle systolic function is borderline. The Ejection Fraction is 50-55%. Apical half of the septum was mod/severely hypokinetic Other LV wall segments contracted normally Transmitral Doppler flow pattern is Grade I-abnormal relaxation pattern. RIGHT VENTRICLE The right ventricle is normal size. There is normal right ventricular wall thickness. The right ventricular systolic function is normal. ATRIA The left atrium is moderately dilated. The right atrium size is normal. AORTIC VALVE The aortic valve is moderately sclerotic. No aortic regurgitation is present. There is moderate to severe valvular aortic stenosis. Calculated aortic valve area is 1.04 cm2 with maximum pressure gradient of 31 mmHg and mean pressure gradient of 19 mmHg. MITRAL VALVE The mitral valve is normal in structure. There is no evidence of mitral valve prolapse. There is no mitral valve stenosis. There is no mitral valve regurgitation noted. TRICUSPID VALVE The tricuspid valve is normal in structure. There is no tricuspid valve regurgitation noted. There is no tricuspid valve prolapse or vegetation. PULMONIC VALVE The pulmonary valve is normal in structure. There is no pulmonic valvular regurgitation. GREAT VESSELS The aortic root is normal in size. The IVC is dilated. The IVC collapses <50% with inspiration. PERICARDIAL EFFUSION The pericardium appears normal. <Conclusion> The left ventricle is normal size. There is normal left ventricular wall thickness. Apical half of the septum was mod/severely hypokinetic Other LV wall segments contracted normally Left ventricle systolic function is borderline. The Ejection Fraction is 50-55%. Transmitral Doppler flow pattern is Grade I-abnormal relaxation pattern. The aortic valve is moderately sclerotic. There is moderate to severe valvular aortic stenosis. Calculated aortic valve area is 1.04 cm2 with maximum pressure gradient of 31 mmHg and mean pressure gradient of 19 mmHg. The IVC is dilated. The IVC collapses <50% with inspiration.
[2018-04-02] MEDS: Heparin 25,000units in D5W 25,000 UNITS/250 ML BAG IV SCH (14:10)
--- NOTE | 2018-04-02 15:18 | PN ---
DATE: 04/02/2018 ENDOCRINOLOGY FOLLOWUP NOTE LOCATION: In ICU room 433. SUBJECTIVE: This is a 72-year-old female with recent uncontrolled type 2 insulin-requiring diabetes, now being followed closely for metabolic management. She also admitted with lower extremity gangrene in the right foot with necrotic ulcerations as noted and also multiple neuropathic ulcerations in the left foot as noted. Her glycemic levels are fluctuating, but improved and the latest glucose levels have ranged from 182 a to 241 mg/dL. The latest chemistry showed BUN of 20, sodium of 139, potassium of 4.6, chloride of 101, CO2 of 30, glucose of 239, and creatinine of 0.7. So at this time, we will modify once again her basal insulin and increase the Levemir to 20 units subcutaneous at bedtime daily to start tonight. We will continue the low dose correction scale using Humalog insulin as given. We will also titrate insulin with Humalog to be adjusted to 10 units subcutaneous, we increased Humalog to 10 units subcutaneous 3 times a day before meal to start today as ordered. We will titrate incrementally as indicated to optimize metabolic control. We will obtain serial chemistries and supplement accordingly as needed. We will follow with you. Aparna Yang MD
[2018-04-02] MEDS: Sodium Chloride 0.9% 1,000 ML IV SCH (17:07)
[2018-04-02] MEDS ORDERED: Insulin Detemir 100 Units/ml Inj SC SCH (22:00)
[2018-04-02] MEDS ORDERED: Chlorhexidine Gluconate 1 APPL/PKT TP ONE (22:28)
[2018-04-02] MEDS ORDERED: Anusol Suppository PR ONE (22:43)
[2018-04-03 00:43] LABS: HEMOGLOBIN 8.5 g/dL (12.0-16.0); MEAN CELL VOLUME 82.7 fl (81.0-99.0); MEAN CORPUSCULAR HEMOGLOBIN 26.9 pg (27.0-31.0); MEAN CORPUSCULAR HGB CONC 32.5 g/dL (33.0-37.0); RBC 3.15 Mil/uL (3.80-5.20); WHITE BLOOD COUNT 13.6 K/uL (4.8-10.8)
--- NOTE | 2018-04-03 01:35 | CP.PCM.PN ---
Subjective - Date & Time of Evaluation Date of Evaluation: 04/02/18 Time of Evaluation: 21:30 - Subjective Subjective: Seen and examined at the bed side. No fever or chills. Denies chest pain, SOB. S /P I&D. D/w Virtual Office Assistant, and will go for Cardiogram. Objective - Vital Signs/Intake and Output Vital Signs (last 24 hours): Temp Pulse Resp BP Pulse Ox 98.6 F 93 H 23 125/55 L 99 04/02/18 20:00 04/02/18 21:17 04/02/18 20:00 04/02/18 21:17 04/02/18 20:00 Intake and Output: 04/02/18 04/03/18 18:59 06:59 Intake Total 2640 Balance 2640 - Medications Medications: Current Medications Acetaminophen (Tylenol 325mg Tab) 650 mg PO Q6H PRN PRN Reason: Pain, Mild (1-3) Last Admin: 03/31/18 07:44 Dose: 650 mg Acetaminophen (Tylenol 325mg Tab) 650 mg PO Q6H PRN PRN Reason: Fever >100.4 F Aspirin (Aspirin) 325 mg PO DAILY [facility] Last Admin: 04/02/18 09:22 Dose: 325 mg Atorvastatin Calcium (Lipitor) 40 mg PO DAILY [facility] Last Admin: 04/02/18 09:17 Dose: 40 mg Clopidogrel Bisulfate (Plavix) 75 mg PO DAILY [facility] Last Admin: 04/02/18 09:22 Dose: 75 mg Docusate Sodium (Colace) 100 mg PO BID [facility] Last Admin: 04/02/18 17:00 Dose: 100 mg Piperacillin Sod/Tazobactam (Sod 3.375 gm/ Sodium Chloride) 100 mls @ 100 mls/ hr IVPB Q6 [facility] PRN Reason: Protocol Last Admin: 04/02/18 21:15 Dose: 100 mls/hr Vancomycin HCl 1 gm/ Sodium (Chloride) 250 mls @ 166.667 mls/hr IVPB Q12 [facility] PRN Reason: Protocol Last Admin: 04/02/18 21:14 Dose: 166.667 mls/hr Sodium Chloride (Sodium Chloride 0.9%) 1,000 mls @ 100 mls/hr IV .Q10H [facility] Last Admin: 04/02/18 17:07 Dose: 100 mls/hr Insulin Detemir (Levemir) 20 units SC HS [facility] Last Admin: 04/02/18 22:13 Dose: 20 units Insulin Human Lispro (Humalog) 0 units SC ACHS [facility] PRN Reason: Protocol Last Admin: 04/02/18 21:49 Dose: Not Given Insulin Human Lispro (Humalog) 12 units SC AC [facility] Metoprolol Tartrate (Lopressor) 25 mg PO Q12 [facility] Last Admin: 04/02/18 21:17 Dose: 25 mg Morphine Sulfate (Morphine) 2 mg IVP Q4 PRN PRN Reason: pain 4-10 Last Admin: 04/02/18 23:23 Dose: 2 mg Ondansetron HCl (Zofran Odt) 4 mg PO Q8H PRN PRN Reason: Nausea/Vomiting - Labs Labs: 04/03/18 00:17 04/02/18 04:20 PT 13.7 Seconds (9.8-13.1) H 03/31/18 23:14 INR 1.2 (0.9-1.2) 03/31/18 23:14 APTT 24.3 Seconds (25.6-37.1) L D 04/03/18 00:17 - Constitutional Appears: Well, No Acute Distress - Head Exam Head Exam: ATRAUMATIC, NORMAL INSPECTION, NORMOCEPHALIC - Eye Exam Eye Exam: EOMI, Normal appearance, PERRL Pupil Exam: NORMAL ACCOMODATION, PERRL - ENT Exam ENT Exam: Mucous Membranes Moist, Normal Exam - Neck Exam Neck Exam: Full ROM, Normal Inspection. absent: Lymphadenopathy - Respiratory Exam Respiratory Exam: Clear to Ausculation Bilateral, NORMAL BREATHING PATTERN - Cardiovascular Exam Cardiovascular Exam: REGULAR RHYTHM, +S1, +S2. absent: Murmur - GI/Abdominal Exam GI & Abdominal Exam: Soft, Normal Bowel Sounds. absent: Tenderness - Extremities Exam Additional comments: Bilateral LE exam VASC: DP/PT pulses are non-palpable bilaterally, Cap refill time: < 3 sec to all digits, Temp gradient: warm to warm from proximal to distal (R>L), non- pitting edema noted extending from foot proximally to the mid leg level bilaterally DERM: Multiple wounds on bilateral lower extremity: severe malodor present from bilateral LE with hyperkeratotic sloughing of the skin which extends from mid leg distally to the feet bilaterally, erythema noted extending from mid leg to feet on bilateral LE (R>L) Right: Circular Necrotic wound measuring approx. 4.5 cm x 4.5 cm x 0.5 cm with sloughing of the soft tissue and fat pad atrophy noted at the base of the 1st metatarsal, approx 3.5 cm incision noted on the medial aspect of the right 1st MTPJ which probes to bone, tissue deep to the incision site is necro-fibrotic with no active drainage, no purulence expressed from the incision site on palpation from all directions, Second necrotic wound present at the plantar aspect of the right heel measuring approx 7.5 cm x 5.5 cm x 0.5 cm with gerber- wound erythema and epidermal layer sloughing on the lateral side, no active drainage from both the wounds, no purulence, no tunneling or tracking Left: Circular necrotic wound measuring approx 2.5 cm x 2.5 cm x 0.3 cm present on the plantar aspect of the 5th metatarsal head, no tunneling, no tracking, no undermining, no active drainage - Back Exam Back Exam: NORMAL INSPECTION - Neurological Exam Neurological Exam: Alert, Awake, CN II-XII Intact, Normal Gait, Oriented x3 - Psychiatric Exam Psychiatric exam: Normal Affect, Normal Mood - Skin Skin Exam: Dry, Intact, Normal Color, Warm - Additional Findings Additional findings: CT Angiography Abdomen, Pelvis and Lower Extremity with Contrast: HISTORY: B/l diabetic wounds COMPARISON: None. TECHNIQUE: Technique: CT angiography of the abdomen, pelvis and bilateral lower extremities performed in the arterial phase of enhancement. Coronal and sagittal reformats, and well as rotating MIP images of the vessels generated at the workstation. Intravenous contrast dose: Visipaque 320, 99 cc Radiation dose: Total exam DLP = 1830.82 mGy-cm. This CT exam was performed using one or more of the following dose reduction techniques: Automated exposure control, adjustment of the mA and/or kV according to patient size, and/or use of iterative reconstruction technique. FINDINGS: CT ANGIOGRAPHY: ABDOMINAL AORTA:: A non aneurysmal but mildly atherosclerotic abdominal aorta is appreciate without significant stenosis. MAJOR AORTIC BRANCHES: Celiac [place]sgood: Trace atherosclerotic plaques identified at the origin of the celiac artery without significant stenosis. Superior mesenteric artery: No significant stenosis is encountered. Inferior mesenteric artery: No significant stenosis is encountered. Renal arteries: No significant stenosis is encountered. PELVIC ARTERIES: Trace bilateral common and superficial femoral arterial segmental atherosclerotic plaques are identified without significant stenosis. RIGHT LOWER EXTREMITY ARTERIES: Right Common Femoral: Unremarkable. Right Superficial Femoral: Limited atherosclerotic plaque seen at the approximate distal segments with moderate adductor canal stenoses identified distally. Right Profunda Femoris: Patent. Right Popliteal:A moderate to high-grade stenosis appreciate and/or of 65 cm percent at the mid and distal popliteal artery which nevertheless remains patent. Right Anterior Tibial: Moderate multilevel segmental stenoses are appreciated, appearing patent to the ankle. Right Tibioperoneal Trunk: Patent without significant stenosis. Right Posterior Tibial: Moderate multilevel segmental stenoses are appreciated , appearing patent to the ankle. Right Peroneal: Moderate multilevel segmental stenoses are appreciated, appearing patent to the ankle.. Right dorsalis pedis : Unremarkable. LEFT LOWER EXTREMITY ARTERIES: Left Common Femoral: Mild segmental stenosis identified. Left Superficial Femoral: Multilevel [id number] stenoses are identified at various mid and distal left SFA segments with moderate to high-grade stenoses identified at the level of the adductor canal proximal to the left popliteal artery.. Left Profunda Femoris: Patent. Left Popliteal: Moderate distal popliteal artery stenosis noted with the vessel remaining patent throughout. Left Anterior Tibial: Widely patent without definite significant stenosis to the ankle. Left Tibioperoneal Trunk: Moderate to severely diseased. Left Posterior Tibial: Occluded proximally limited distal reconstitution near the ankle. Left Peroneal: Appears patent to the ankle without a high-grade stenosis. Left Dorsalis pedis: Appears patent without high-grade stenosis evident. NON-ANGIOGRAPHIC ASPECT OF THE EXAM: LOWER THORAX: Cardiomegaly, no pleural or pericardial effusion. No definite infiltrate bilaterally. LIVER: Unremarkable. No gross lesion or ductal dilatation. GALLBLADDER AND BILE DUCTS: Prior cholecystectomy. PANCREAS: Unremarkable. No gross lesion or ductal dilatation. SPLEEN: Unremarkable. ADRENALS: Bilateral adrenal hyperplasia is suggested. No focal adrenal mass bilaterally. KIDNEYS AND URETERS: A tiny lucency at the mid pole left kidney seen anteriorly suggestive of a small cysts 9 mm greatest dimension, too small to characterize. No hydronephrosis. STOMACH AND BOWEL: Unremarkable. No obstruction. No gross mural thickening. APPENDIX: None identified. PERITONEUM: Unremarkable. No free fluid. No free air. LYMPH NODES: Unremarkable. No enlarged lymph nodes. BLADDER: Unremarkable. REPRODUCTIVE: Unremarkable. BONES: Patient status post L4-5 posterior spinal fusion with hardware generating artifacts limiting the evaluation. OTHER FINDINGS: None. IMPRESSION: 1. 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 2. Numeral high-grade stenosis distal left SFA E with bilateral common and right center femoral arteries otherwise widely patent. 3. Limited visceral pathology in abdomen pelvis as discussed above. 4. Prior cholecystectomy. 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
[2018-04-03] MEDS: Piperacillin/Tazobact 3.375 GM in Sodium Chloride 0.9% 100 ML IVPB SCH ×2 (03:59→09:30)
[2018-04-03] MEDS ORDERED: Heparin 25,000units in D5W 25,000 UNITS/250 ML BAG IV SCH (05:00)
[2018-04-03 05:59] LABS: HEMOGLOBIN 8.2 g/dL (12.0-16.0); MEAN CELL VOLUME 83.7 fl (81.0-99.0); MEAN CORPUSCULAR HEMOGLOBIN 26.8 pg (27.0-31.0); RBC 3.06 Mil/uL (3.80-5.20); RED CELL DISTRIBUTION WIDTH 14.1 % (11.5-14.5); WHITE BLOOD COUNT 12.8 K/uL (4.8-10.8)
[2018-04-03 06:02] LABS: BLOOD UREA NITROGEN 19 mg/dl (7-17); CALCIUM 7.9 mg/dL (8.4-10.2); GFR AFRICAN-AMERICAN > 60; GFR NON-AFRICAN AMERICAN > 60
--- NOTE | 2018-04-03 07:45 | PN ---
DATE: 04/02/2018 CRITICAL CARE PROGRESS NOTE LOCATION: The patient is in ICU bed 433. TIME SPENT: 35 minutes. SUBJECTIVE: The patient is seen and evaluated at the bedside. Past medical, surgical, family and social history reviewed. A 72-year-old morbidly obese female with longstanding history of diabetes mellitus type 2, hypertension, coronary artery disease status post stent in 2011 as noted in Cardiology consultation note. Admitted with chronic cellulitis involving both lower extremities. Noted to have significant peripheral vascular disease, status post incision and debridement of right foot x2. Also noted to have PE involving right upper lobe branch with pulmonary artery, on heparin drip. Overnight, uneventful, afebrile, and normotensive. Telemetry sinus rhythm. This morning, alert, awake, seen the patient along with Podiatry consult. Noted ulcer/wound_ plantar and lateral aspect of the right foot, status post debridement, dressing done. PHYSICAL EXAMINATION: VITAL SIGNS: Temperature 99.1, heart rate 76, blood pressure 111/59, mean arterial pressure 76, respiratory rate 16, oxygen saturations 99% on oxygen supplement 2 L nasal cannula. INTAKE AND OUTPUT: Intake 2466, output not documented. Weight 210 pounds. HEENT: Pupils are reactive. Conjunctivae pink. Sclerae are white. NECK: Supple and short neck. Reduced oropharyngeal air space. CHEST: Bilateral breath sounds, clear to auscultation anteriorly and laterally. HEART: Rhythm regular. S1 and S2 distant. No S3, S4 gallop. No audible murmur. ABDOMEN: Bowel sounds present. Soft. EXTREMITIES: Bilateral lower extremity with extensive cellulitis more on the right than on the left involving the plantar and lateral aspect of the right foot. DP reduced in intensity. NEUROLOGIC: Nonfocal. CURRENT MEDICATIONS: Tylenol 650 p.o. every 6 hours p.r.n. for fever more than 100.4, aspirin 325 mg p.o. daily, Lipitor 40 mg p.o. daily, Plavix 75 mg p.o. daily, D5 normal , heparin 25,000 Units x 50 mL at 1000 Units per hour, Levemir 20 Units subcutaneous at bedtime, Accu-Chek with regular insulin coverage a.c. and at bedtime, Lopressor 25 mg p.o. every 12 hours, morphine sulfate 2 mg IV every 4 hours p.r.n., Zosyn 3.375 g IV every 6 hours, and vancomycin 1 g IV every 12 hours. LABORATORY DATA: WBC 14.9, hemoglobin 8.9, hematocrit 27.7, and platelet count 407,000. PTT 50.8. SMA-7; sodium 139, potassium 4.6, chloride 101, BUN 20, creatinine 0.7, random glucose 182, and calcium 8.2. Microbiology; Wound culture positive for beta-hemolytic Streptococcus group B, Enterobacter aerogenes. Sensitive to Zosyn. Blood culture, no growth reported. Lower extremity angiography, moderate and severe diseased right lower extremity three-vessel run off with single vessel_ via the left anterior tibial artery, occluded left BACK TACKER with [id number] diseased left upper artery, high-grade stenosis, distal left SFA with bilateral common and right femoral arteries. IMPRESSION AND PLAN: 1. Neurologic: Alert and oriented to name, place and time. 2. Pulmonary: The CT angiogram with suspected small pulmonary embolism involving upper lobe right pulmonary artery. Currently on heparin drip. Pulmonary evaluation pending. 3. Cardiac: History of coronary artery disease status post stent as documented in Cardiology consult evaluation. Currently on aspirin, Plavix, heparin, and beta-norberto. Recommendations include preoperative cardiac catheterization to assess the coronary artery anatomy. 4. Hematology: Leukocytosis tending down. Hemoglobin low, acute on chronic. 5. Infectious disease: Cellulitis chronic with lymphedema on both lower extremities, followed by Podiatry consult, status post incision and drainage x2 on antibiotic with vancomycin and Zosyn. Wound culture positive for Enterobacter aerogenes and beta-hemolytic group B Streptococci. Sensitive to Zosyn, on vancomycin, follow trough level 6. Renal: BUN and creatinine within normal limits. 7. Skin with small _DTI right buttocks. Continue wound care, Addy Duffy MD GURWINDER
--- NOTE | 2018-04-03 08:44 | CP.PCM.PN ---
Subjective - Date & Time of Evaluation Date of Evaluation: 04/03/18 Time of Evaluation: 08:44 - Subjective Subjective: Podiatry - Dr. Smith 72F seen and evaluated in ICU for RLE gas gangrene and bilateral lower extremity cellulitis with multiple wounds. Patient is POD#2 right foot incision and drainage of abscess with gas gangrene (DOS 04/01/18). Patient resting in bed comfortably, NAD. Son present at bedside. No acute events overnight, able to sleep well with pain well-controlled. No complaints to LLE. Dressings to bilateral LE remain clean/dry/intact. Offloading boots not present b/l. For cardiac cath today. Denies N/V/F/D/C. States SOB improving. Objective - Vital Signs/Intake and Output Vital Signs (last 24 hours): Temp Pulse Resp BP Pulse Ox 98.8 F 78 21 97/47 L 98 04/03/18 08:00 04/03/18 08:00 04/03/18 08:00 04/03/18 08:00 04/03/18 08:00 Intake and Output: 04/03/18 04/03/18 06:59 18:59 Intake Total 1075 350 Balance 1075 350 - Medications Medications: Current Medications Acetaminophen (Tylenol 325mg Tab) 650 mg PO Q6H PRN PRN Reason: Pain, Mild (1-3) Last Admin: 03/31/18 07:44 Dose: 650 mg Acetaminophen (Tylenol 325mg Tab) 650 mg PO Q6H PRN PRN Reason: Fever >100.4 F Aspirin (Aspirin) 325 mg PO DAILY [facility] Last Admin: 04/02/18 09:22 Dose: 325 mg Atorvastatin Calcium (Lipitor) 40 mg PO DAILY [facility] Last Admin: 04/02/18 09:17 Dose: 40 mg Clopidogrel Bisulfate (Plavix) 75 mg PO DAILY [facility] Last Admin: 04/02/18 09:22 Dose: 75 mg Docusate Sodium (Colace) 100 mg PO BID [facility] Last Admin: 04/02/18 17:00 Dose: 100 mg Piperacillin Sod/Tazobactam (Sod 3.375 gm/ Sodium Chloride) 100 mls @ 100 mls/ hr IVPB Q6 [facility] PRN Reason: Protocol Last Admin: 04/03/18 03:59 Dose: 100 mls/hr Vancomycin HCl 1 gm/ Sodium (Chloride) 250 mls @ 166.667 mls/hr IVPB Q12 [facility] PRN Reason: Protocol Last Admin: 04/03/18 08:15 Dose: 166.667 mls/hr Sodium Chloride (Sodium Chloride 0.9%) 1,000 mls @ 100 mls/hr IV .Q10H [facility] Last Admin: 04/02/18 17:07 Dose: 100 mls/hr Heparin Sodium/Dextrose (Heparin 25,000 Units/250ml In D5w) 25,000 units in 250 mls @ 10 mls/hr IV .Q24H [facility] PRN Reason: Protocol Last Admin: 04/03/18 05:41 Dose: 10 mls/hr Insulin Detemir (Levemir) 20 units SC HS [facility] Last Admin: 04/02/18 22:13 Dose: 20 units Insulin Human Lispro (Humalog) 0 units SC ACHS [facility] PRN Reason: Protocol Last Admin: 04/02/18 21:49 Dose: Not Given Insulin Human Lispro (Humalog) [address] [facility] Metoprolol Tartrate (Lopressor) 25 mg PO Q12 [facility] Last Admin: 04/02/18 21:17 Dose: 25 mg Morphine Sulfate (Morphine) 2 mg IVP Q4 PRN PRN Reason: pain 4-10 Last Admin: 04/02/18 23:23 Dose: 2 mg Ondansetron HCl (Zofran Odt) 4 mg PO Q8H PRN PRN Reason: Nausea/Vomiting - Labs Labs: 04/03/18 04:20 04/03/18 04:20 PT 13.7 Seconds (9.8-13.1) H 03/31/18 23:14 INR 1.2 (0.9-1.2) 03/31/18 23:14 APTT 24.3 Seconds (25.6-37.1) L D 04/03/18 00:17 - Constitutional Appears: Well, Non-toxic, No Acute Distress - Extremities Exam Additional comments: VASC: DP/PT pulses are non-palpable bilaterally, Cap refill time: < 3 sec to all digits, Temp gradient: warm to warm b/l, non-pitting edema noted extending from foot proximally to the mid leg level bilaterally DERM: Multiple wounds on bilateral lower extremity: severe malodor present from bilateral LE with severe lichenifications, erythema noted extending from mid leg to feet on bilateral LE (R>L) though improving from previous visit Right: Circular surgical wound at previous area of boggy necrosis measuring approximately 4.5 x 4.5 cm extending down to subcutaneous tissue - tracking towards medial 1st MPJ incision; no serosanguinous drainage present; no purulence able to be expressed; (+)probe to bone. Linear incision measuring approximately 3.5cm at medial 1st MPJ extending to capsule; surrounding tissue appears fibrogranular; no serosanguinous drainage present; no purulence able to be expressed. Circular surgical wound located at the plantar aspect of heel measuring approximately 7.5 x 5.5 cm extending down to subcutaneous tissue - noted to have 2 areas that tunnel approximately 3cm deep - #1 at 6 o'clock and # 2 at 9 o'clock; no serosanguinous drainage present; no purulence able to be expressed; (+)probe to bone; hyperkeratotic rim present. Superficial wound noted to lateral aspect of leg noted to have a 100% granular base; sanguinous drainage present; absent purulence; absent malodor. Left: Circular necrotic wound measuring approx 2.5 cm x 2.5 cm x 0.3 cm present on the plantar aspect of the 5th metatarsal head - noted to have a hard, necrotic base with hyperkeratotic rim, no tunneling, no tracking, no undermining , no active drainage. Superficial wound noted to lateral aspect of leg with a 100% granular base; sanguinous drainage present NEURO: Protective sensation grossly diminished ORTHO: Pain on palpation to all wounds; pain upon ROM bilateral LE. No pain on palpation of the calf b/l - Neurological Exam Neurological Exam: Alert, Awake, Oriented x3 - Psychiatric Exam Psychiatric exam: Normal Affect, Normal Mood Assessment and Plan - Assessment and Plan (Free Text) Assessment: 72 year old female patient with PMHx of DM, HTN was evaluated for 1) gas gangrene of the right forefoot wound 2) multiple necrotic wounds b/l LE 3) Cellulitis POD#2 right foot incision and drainage of abscess with gas gangrene (DOS 04/01/18 ) Plan: Patient seen and evaluated Discussed with attending, Dr. Smith Afebrile, WBC trending downwards @ 12.8 Pre-bedside I&D XR bilateral LE: Diffuse radiolucency on the medial aspect of the 1st MTPJ of the right foot within the soft tissue consistent with soft tissue emphysema -Post I&D foot and tib-fib XR: No signs of soft tissue emphysema Venous duplex: no evidence of DVT Right foot WCx: enterobacter aerogenes, beta hemolytic strep group B Intra-op dirty WCx: (prelim) gram positive cocci Intra-op clean WCx: (prelim) gram positive cocci Intra-op bone culture: (prelim) pending Continue abx per ID - Vancomycin 1g IV, Zosyn 3.375g IV Continue local wound care: saline flush, 1/4" packing, betadine, DSD Limb prognosis poor - recommend RLE BKA -Patient agreeable to R MARY CARMEN -Dr. Jimenez on board, for cardiac cath today Podiatry will continue to follow
[2018-04-03] MEDS: Insulin Lispro (humaLOG) 100 Units/ml Inj SC SCH ×3 (09:29→11:40)
--- NOTE | 2018-04-03 10:57 | CP.PCM.PN ---
Subjective - Date & Time of Evaluation Date of Evaluation: 04/03/18 Time of Evaluation: 10:55 - Subjective Subjective: General Surgery Progress Note 72F seen this AM for gas gangrene of RLE with multiple infected wounds two days s/p I and D of RLE by podiatry. Patient states that she is feeling well this morning and has an increasing appetite. Patient denies any acute overnight events or new LE complaints. States that her pain is well controlled at this time. Denies an N/V/F/C/CP/SOB/D Objective - Vital Signs/Intake and Output Vital Signs (last 24 hours): Temp Pulse Resp BP Pulse Ox 98.8 F 78 21 103/59 L 98 04/03/18 08:00 04/03/18 09:30 04/03/18 08:00 04/03/18 09:30 04/03/18 08:00 Intake and Output: 04/03/18 04/03/18 06:59 18:59 Intake Total 1075 350 Balance 1075 350 - Medications Medications: Current Medications Acetaminophen (Tylenol 325mg Tab) 650 mg PO Q6H PRN PRN Reason: Pain, Mild (1-3) Last Admin: 03/31/18 07:44 Dose: 650 mg Acetaminophen (Tylenol 325mg Tab) 650 mg PO Q6H PRN PRN Reason: Fever >100.4 F Aspirin (Aspirin) 325 mg PO DAILY [facility] Last Admin: 04/03/18 09:29 Dose: 325 mg Atorvastatin Calcium (Lipitor) 40 mg PO DAILY [facility] Last Admin: 04/02/18 09:17 Dose: 40 mg Clopidogrel Bisulfate (Plavix) 75 mg PO DAILY [facility] Last Admin: 04/03/18 09:30 Dose: 75 mg Docusate Sodium (Colace) 100 mg PO BID [facility] Last Admin: 04/03/18 09:29 Dose: Not Given Piperacillin Sod/Tazobactam (Sod 3.375 gm/ Sodium Chloride) 100 mls @ 100 mls/ hr IVPB Q6 [facility] PRN Reason: Protocol Last Admin: 04/03/18 09:30 Dose: 100 mls/hr Vancomycin HCl 1 gm/ Sodium (Chloride) 250 mls @ 166.667 mls/hr IVPB Q12 [facility] PRN Reason: Protocol Last Admin: 04/03/18 08:15 Dose: 166.667 mls/hr Sodium Chloride (Sodium Chloride 0.9%) 1,000 mls @ 100 mls/hr IV .Q10H [facility] Last Admin: 04/02/18 17:07 Dose: 100 mls/hr Heparin Sodium/Dextrose (Heparin 25,000 Units/250ml In D5w) 25,000 units in 250 mls @ 10 mls/hr IV .Q24H [facility] PRN Reason: Protocol Last Admin: 04/03/18 05:41 Dose: 10 mls/hr Insulin Detemir (Levemir) 20 units SC HS [facility] Last Admin: 04/02/18 22:13 Dose: 20 units Insulin Human Lispro (Humalog) 0 units SC ACHS [facility] PRN Reason: Protocol Last Admin: 04/02/18 21:49 Dose: Not Given Insulin Human Lispro (Humalog) 12 units SC AC [facility] Last Admin: 04/03/18 09:29 Dose: Not Given Metoprolol Tartrate (Lopressor) 25 mg PO Q12 [facility] Last Admin: 04/03/18 09:30 Dose: 25 mg Morphine Sulfate (Morphine) 2 mg IVP Q4 PRN PRN Reason: pain 4-10 Last Admin: 04/02/18 23:23 Dose: 2 mg Ondansetron HCl (Zofran Odt) 4 mg PO Q8H PRN PRN Reason: Nausea/Vomiting - Labs Labs: 04/03/18 04:20 04/03/18 04:20 PT 13.7 Seconds (9.8-13.1) H 03/31/18 23:14 INR 1.2 (0.9-1.2) 03/31/18 23:14 APTT 24.3 Seconds (25.6-37.1) L D 04/03/18 00:17 - Constitutional Appears: Well, Non-toxic, No Acute Distress - Head Exam Head Exam: ATRAUMATIC, NORMOCEPHALIC - Extremities Exam Additional comments: Dressings noted to be C/D/I to RLE with no signs of strikethrough noted No malodor present - Neurological Exam Neurological Exam: Alert, Awake, Oriented x3 - Psychiatric Exam Psychiatric exam: Normal Affect, Normal Mood Assessment and Plan - Assessment and Plan (Free Text) Assessment: 72F seen for RLE wounds two days s/p I and D by podiatry Plan: WBC 12.8 from 13.6 Afebrile Pain meds Anticoags Abx Per Dr. Louie, patient most likely for BKA Awaiting recs from Dr. Lim on whether or not revascularization procedures are possible Dressing changes via podiatry Will continue to follow
--- NOTE | 2018-04-03 11:04 | CP.PCM.PN ---
Subjective - Date & Time of Evaluation Date of Evaluation: 04/03/18 Time of Evaluation: 11:02 - Subjective Subjective: Vascular Surgery Progress Note 72F seen this AM for gas gangrene of RLE with multiple infected wounds two days s/p I and D of RLE by podiatry. Patient states that she is feeling well this morning and has an increasing appetite. Patient denies any acute overnight events or new LE complaints. States that her pain is well controlled at this time. Denies an N/V/F/C/CP/SOB/D Objective - Vital Signs/Intake and Output Vital Signs (last 24 hours): Temp Pulse Resp BP Pulse Ox 98.8 F 78 21 103/59 L 98 04/03/18 08:00 04/03/18 09:30 04/03/18 08:00 04/03/18 09:30 04/03/18 08:00 Intake and Output: 04/03/18 04/03/18 06:59 18:59 Intake Total 1075 350 Balance 1075 350 - Medications Medications: Current Medications Acetaminophen (Tylenol 325mg Tab) 650 mg PO Q6H PRN PRN Reason: Pain, Mild (1-3) Last Admin: 03/31/18 07:44 Dose: 650 mg Acetaminophen (Tylenol 325mg Tab) 650 mg PO Q6H PRN PRN Reason: Fever >100.4 F Aspirin (Aspirin) 325 mg PO DAILY [facility] Last Admin: 04/03/18 09:29 Dose: 325 mg Atorvastatin Calcium (Lipitor) 40 mg PO DAILY [facility] Last Admin: 04/02/18 09:17 Dose: 40 mg Clopidogrel Bisulfate (Plavix) 75 mg PO DAILY [facility] Last Admin: 04/03/18 09:30 Dose: 75 mg Docusate Sodium (Colace) 100 mg PO BID [facility] Last Admin: 04/03/18 09:29 Dose: Not Given Piperacillin Sod/Tazobactam (Sod 3.375 gm/ Sodium Chloride) 100 mls @ 100 mls/ hr IVPB Q6 [facility] PRN Reason: Protocol Last Admin: 04/03/18 09:30 Dose: 100 mls/hr Vancomycin HCl 1 gm/ Sodium (Chloride) 250 mls @ 166.667 mls/hr IVPB Q12 [facility] PRN Reason: Protocol Last Admin: 04/03/18 08:15 Dose: 166.667 mls/hr Sodium Chloride (Sodium Chloride 0.9%) 1,000 mls @ 100 mls/hr IV .Q10H [facility] Last Admin: 04/02/18 17:07 Dose: 100 mls/hr Heparin Sodium/Dextrose (Heparin 25,000 Units/250ml In D5w) 25,000 units in 250 mls @ 10 mls/hr IV .Q24H [facility] PRN Reason: Protocol Last Admin: 04/03/18 05:41 Dose: 10 mls/hr Insulin Detemir (Levemir) 20 units SC HS [facility] Last Admin: 04/02/18 22:13 Dose: 20 units Insulin Human Lispro (Humalog) 0 units SC ACHS [facility] PRN Reason: Protocol Last Admin: 04/02/18 21:49 Dose: Not Given Insulin Human Lispro (Humalog) 12 units SC AC [facility] Last Admin: 04/03/18 09:29 Dose: Not Given Metoprolol Tartrate (Lopressor) 25 mg PO Q12 [facility] Last Admin: 04/03/18 09:30 Dose: 25 mg Morphine Sulfate (Morphine) 2 mg IVP Q4 PRN PRN Reason: pain 4-10 Last Admin: 04/03/18 10:59 Dose: 2 mg Ondansetron HCl (Zofran Odt) 4 mg PO Q8H PRN PRN Reason: Nausea/Vomiting - Labs Labs: 04/03/18 04:20 04/03/18 04:20 PT 13.7 Seconds (9.8-13.1) H 03/31/18 23:14 INR 1.2 (0.9-1.2) 03/31/18 23:14 APTT 24.3 Seconds (25.6-37.1) L D 04/03/18 00:17 - Constitutional Appears: Well, Non-toxic, No Acute Distress - Head Exam Head Exam: ATRAUMATIC, NORMOCEPHALIC - Extremities Exam Additional comments: Dressings noted to be C/D/I to RLE with no signs of strikethrough noted No malodor present - Neurological Exam Neurological Exam: Alert, Awake, Oriented x3 - Psychiatric Exam Psychiatric exam: Normal Affect, Normal Mood Assessment and Plan - Assessment and Plan (Free Text) Assessment: 72F seen for RLE wounds two days s/p I and D by podiatry Plan: WBC 12.8 from 13.6 Afebrile Pain meds Anticoags Abx Per Dr. 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 Lim to assess b/l LE CTA and determine if revascularization procedures possible Will f/u recs
[2018-04-03 11:38] VITALS: TEMP 98.2
--- NOTE | 2018-04-03 11:38 | CP.CCUPN ---
CCU Subjective - Physician Review Subjective (Free Text): Had chest discomfort this AM, denied any associated nausea, palpitations, dizziness, radiation of discomfort, SOB at bed rest, described at pressure/ tightness. EKG done and compared to previous studies: no new changes seen, subsequently given small dose of Morphine and relieved. No further hematuria as overnight, Heparin drip has been resumed. Tentatively for [facility] today. Other vitals and I/O's reviewed. ROS: No other pertinent negs or positives on 10+ system review. PMSFH: All other Nursing and physician documentation reviewed to date; no new pertinent info noted relevant to current medical problems. EXAM- HEENT: no icterus, no gaze preference, pupils equal and reactive NECK: No JVD, supple, carotids equal upstroke bilat/no bruits CHEST: decreased BS bases, no wheezes audible HEART: regular, distant, S1S2, no rubs. ABD: soft, no distention, no tympany, no palp tenderness, BS hypoactive EXT: No mottling. No edema. No peripheral/ digital cyanosis, no calf tenderness or palpable cords, distal pulses intact and symmetrical. NEURO: no focal gross motor deficits SKIN: no rashes, warm and dry. LABS: WBC= 12.8 HGB= 8.2 PLTs= 361K INR = pending for 12 Noon Xw=321 K= 4.52 DX=942 HCO3= 26 BUN/Cr= 19/0.6 BS= 315 IMPRESSION / MAJOR PROBLEMS NOW: 1. R Foot Gangrenous Abscess; s/p I & D 2. Bilat LE Celliultis 3. NSTEMI 4. Chronic Disease Anemia 5. Uncontrolled DM II PLAN: 1. For C Cath today. 2. Continue Heparin drip, ASA. Plavix for now. ECHO results reviewed. Showing borderline LVEF 50-55%. 3. Consider optimizing Hgb level given NSTEMI. 4. Further operative interventions pending C-Cath study. 5. Multiple organisms growing from Foot Wound Cxs, sensitive to current abx coverage. CCU Objective - Vital Signs / Intake & Output Vital Signs (Last 4 hours): Vital Signs Temp Pulse Resp BP Pulse Ox 04/03/18 11:37 98.2 F 04/03/18 10:00 77 18 112/64 98 04/03/18 09:30 78 103/59 L 04/03/18 08:00 98.8 F 78 21 97/47 L 98 Intake and Output (Last 8hrs): Intake & Output 04/02/18 04/03/18 04/03/18 22:59 06:59 14:59 Intake Total 1115 800 350 Balance 1115 800 350 Weight 243 lb 243 lb Intake: IV 675 700 Intake, Piggyback 100 100 350 Oral 340 Other: # Voids Urine, Voided 1 2 # Bowel Movements 1
--- NOTE | 2018-04-03 12:08 | CP.PCM.PN ---
Subjective - Date & Time of Evaluation Date of Evaluation: 04/03/18 Time of Evaluation: 12:08 - Subjective Subjective: having episodes of CP this am plan for urgent LHCx today at [facility] Objective - Vital Signs/Intake and Output Vital Signs (last 24 hours): Temp Pulse Resp BP Pulse Ox 98.2 F 77 18 112/64 98 04/03/18 11:37 04/03/18 10:00 04/03/18 10:00 04/03/18 10:00 04/03/18 10:00 Intake and Output: 04/03/18 04/03/18 06:59 18:59 Intake Total 1075 350 Balance 1075 350 - Medications Medications: Current Medications Acetaminophen (Tylenol 325mg Tab) 650 mg PO Q6H PRN PRN Reason: Pain, Mild (1-3) Last Admin: 03/31/18 07:44 Dose: 650 mg Acetaminophen (Tylenol 325mg Tab) 650 mg PO Q6H PRN PRN Reason: Fever >100.4 F Aspirin (Aspirin) 325 mg PO DAILY [facility] Last Admin: 04/03/18 09:29 Dose: 325 mg Atorvastatin Calcium (Lipitor) 40 mg PO DAILY [facility] Last Admin: 04/02/18 09:17 Dose: 40 mg Clopidogrel Bisulfate (Plavix) 75 mg PO DAILY [facility] Last Admin: 04/03/18 09:30 Dose: 75 mg Docusate Sodium (Colace) 100 mg PO BID [facility] Last Admin: 04/03/18 09:29 Dose: Not Given Piperacillin Sod/Tazobactam (Sod 3.375 gm/ Sodium Chloride) 100 mls @ 100 mls/ hr IVPB Q6 [facility] PRN Reason: Protocol Last Admin: 04/03/18 09:30 Dose: 100 mls/hr Vancomycin HCl 1 gm/ Sodium (Chloride) 250 mls @ 166.667 mls/hr IVPB Q12 [facility] PRN Reason: Protocol Last Admin: 04/03/18 08:15 Dose: 166.667 mls/hr Sodium Chloride (Sodium Chloride 0.9%) 1,000 mls @ 100 mls/hr IV .Q10H [facility] Last Admin: 04/02/18 17:07 Dose: 100 mls/hr Heparin Sodium/Dextrose (Heparin 25,000 Units/250ml In D5w) 25,000 units in 250 mls @ 10 mls/hr IV .Q24H [facility] PRN Reason: Protocol Last Admin: 04/03/18 05:41 Dose: 10 mls/hr Insulin Detemir (Levemir) 20 units SC HS [facility] Last Admin: 04/02/18 22:13 Dose: 20 units Insulin Human Lispro (Humalog) 0 units SC ACHS [facility] PRN Reason: Protocol Last Admin: 04/03/18 11:39 Dose: Not Given Insulin Human Lispro (Humalog) 12 units SC AC [facility] Last Admin: 04/03/18 11:40 Dose: Not Given Metoprolol Tartrate (Lopressor) 25 mg PO Q12 [facility] Last Admin: 04/03/18 09:30 Dose: 25 mg Morphine Sulfate (Morphine) 2 mg IVP Q4 PRN PRN Reason: pain 4-10 Last Admin: 04/03/18 10:59 Dose: 2 mg Ondansetron HCl (Zofran Odt) 4 mg PO Q8H [facility]N PRN Reason: Nausea/Vomiting - Labs Labs: 04/03/18 04:20 04/03/18 04:20 PT 13.7 Seconds (9.8-13.1) H 03/31/18 23:14 INR 1.2 (0.9-1.2) 03/31/18 23:14 APTT 24.3 Seconds (25.6-37.1) L D 04/03/18 00:17 - Constitutional Appears: Well - Head Exam Head Exam: ATRAUMATIC, NORMAL INSPECTION, NORMOCEPHALIC - Eye Exam Eye Exam: EOMI, Normal appearance, PERRL Pupil Exam: NORMAL ACCOMODATION, PERRL - ENT Exam ENT Exam: Mucous Membranes Moist, Normal Exam - Neck Exam Neck Exam: Full ROM, Normal Inspection. absent: Lymphadenopathy - Respiratory Exam Respiratory Exam: Clear to Ausculation Bilateral, NORMAL BREATHING PATTERN - Cardiovascular Exam Cardiovascular Exam: REGULAR RHYTHM, +S1, +S2. absent: Murmur - GI/Abdominal Exam GI & Abdominal Exam: Soft, Normal Bowel Sounds. absent: Tenderness - Extremities Exam Extremities Exam: Full ROM, Normal Capillary Refill, Normal Inspection. absent : Joint Swelling, Pedal Edema - Back Exam Back Exam: NORMAL INSPECTION - Neurological Exam Neurological Exam: Alert, Awake, CN II-XII Intact, Normal Gait, Oriented x3 - Psychiatric Exam Psychiatric exam: Normal Affect, Normal Mood - Skin Skin Exam: Dry, Intact, Normal Color, Warm Assessment and Plan (1) Preop cardiovascular exam Assessment & Plan: high risk for cardiovascular events Status: Acute (2) Elevated troponin Assessment & Plan: cont DAPT cont IV heparin cont BB Status: Acute (3) PVD (peripheral vascular disease) Assessment & Plan: Severe PVOD Status: Acute (4) Fall Status: Acute (5) Foot infection Status: Acute (6) Gas gangrene Status: Resolved (7) NSTEMI (non-ST elevated myocardial infarction) Assessment & Plan: cath today Status: Acute
[2018-04-03 14:14] VITALS: O2SAT 100
[2018-04-03 14:19] VITALS: BP 112/64; PULSE 73; RESP 24
[2018-04-03] MEDS ORDERED: Insulin Lispro (humaLOG) 100 Units/ml Inj SC SCH (16:30)
--- NOTE | 2018-04-03 19:23 | PN ---
DATE: 04/03/2018 ENDO FOLLOWUP NOTE. LOCATION: In room 433 ICU. This is a 72-year-old female with recent uncontrolled type 2 insulin-requiring diabetes presenting here with lower extremity neuropathic ulcerations with severe underlying peripheral arterial disease and vasculopathy and is now being followed closely for metabolic management. Her glycemic levels are fluctuating as noted and the glucose values have ranged from 262-335 mg/dL. Her latest chemistry showed a BUN of 19, sodium 135, potassium 4.2, chloride 102, CO2 26, glucose 315 and creatinine 0.6. So at this time, we will modify once again her basal and bolus insulin regimen and increase the Levemir given at bedtime for basal insulin to a dose of 30 units subcu at bedtime daily to start tonight. We will also increase her Humalog to 14 units subcu t.i.d. before meals to start at dinnertime today as ordered. We will continue the low-dose correction scale using Humalog insulin to obviate hypoglycemia and detailed orders have been given. We will follow and advise accordingly. Aparna Yang MD
[2018-04-03] MEDS ORDERED: Insulin Detemir 100 Units/ml Inj SC SCH (22:00)
--- NOTE | 2018-04-03 22:03 | CP.PCM.PN ---
Subjective - Date & Time of Evaluation Date of Evaluation: 04/03/18 Time of Evaluation: 17:00 - Subjective Subjective: Chest Pain Thsi am and Transferred for Cardiac Cath given High Troponin. Objective - Vital Signs/Intake and Output Vital Signs (last 24 hours): Temp Pulse Resp BP Pulse Ox 98.2 F 73 24 112/64 100 04/03/18 12:00 04/03/18 12:00 04/03/18 12:00 04/03/18 10:00 04/03/18 12:00 Intake and Output: 04/03/18 04/04/18 18:59 06:59 Intake Total 350 Balance 350 - Medications Medications: Current Medications Acetaminophen (Tylenol 325mg Tab) 650 mg PO Q6H PRN PRN Reason: Pain, Mild (1-3) Last Admin: 03/31/18 07:44 Dose: 650 mg Acetaminophen (Tylenol 325mg Tab) 650 mg PO Q6H PRN PRN Reason: Fever >100.4 F Aspirin (Aspirin) 325 mg PO DAILY [facility] Last Admin: 04/03/18 09:29 Dose: 325 mg Atorvastatin Calcium (Lipitor) 40 mg PO DAILY [facility] Last Admin: 04/03/18 16:20 Dose: Not Given Clopidogrel Bisulfate (Plavix) 75 mg PO DAILY [facility] Last Admin: 04/03/18 09:30 Dose: 75 mg Docusate Sodium (Colace) 100 mg PO BID [facility] Last Admin: 04/03/18 09:29 Dose: Not Given Piperacillin Sod/Tazobactam (Sod 3.375 gm/ Sodium Chloride) 100 mls @ 100 mls/ hr IVPB Q6 [facility] PRN Reason: Protocol Last Admin: 04/03/18 09:30 Dose: 100 mls/hr Vancomycin HCl 1 gm/ Sodium (Chloride) 250 mls @ 166.667 mls/hr IVPB Q12 [facility] PRN Reason: Protocol Last Admin: 04/03/18 08:15 Dose: 166.667 mls/hr Sodium Chloride (Sodium Chloride 0.9%) 1,000 mls @ 100 mls/hr IV .Q10H [facility] Last Admin: 04/02/18 17:07 Dose: 100 mls/hr Heparin Sodium/Dextrose (Heparin 25,000 Units/250ml In D5w) 25,000 units in 250 mls @ 10 mls/hr IV .Q24H [facility] PRN Reason: Protocol Last Admin: 04/03/18 05:41 Dose: 10 mls/hr Insulin Detemir (Levemir) 30 units SC HS [facility] Insulin Human Lispro (Humalog) 0 units SC ACHS [facility] PRN Reason: Protocol Last Admin: 04/03/18 11:39 Dose: Not Given Insulin Human Lispro (Humalog) 14 units SC AC [facility] Metoprolol Tartrate (Lopressor) 25 mg PO Q12 [facility] Last Admin: 04/03/18 09:30 Dose: 25 mg Morphine Sulfate (Morphine) 2 mg IVP Q4 PRN PRN Reason: pain 4-10 Last Admin: 04/03/18 10:59 Dose: 2 mg Ondansetron HCl (Zofran Odt) 4 mg PO Q8H PRN PRN Reason: Nausea/Vomiting - Labs Labs: 04/03/18 04:20 04/03/18 04:20 PT 13.7 Seconds (9.8-13.1) H 03/31/18 23:14 INR 1.2 (0.9-1.2) 03/31/18 23:14 APTT 25.9 Seconds (25.6-37.1) 04/03/18 12:11 Assessment and Plan (1) NSTEMI (non-ST elevated myocardial infarction) Assessment & Plan: ACtive Chest Pain NItro Heparin Infusion 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 Transfer to [facility] for Cardiac Cath Status: Acute (2) Gas gangrene Assessment & Plan: Continue Current Care Status: Resolved (3) Fall Status: Acute (4) PVD (peripheral vascular disease) Status: Acute (5) Preop cardiovascular exam Status: Acute (6) Sepsis Status: Acute (7) Uncontrolled diabetes mellitus Status: Acute
--- NOTE | 2018-04-04 06:02 | OP ---
PROCEDURE DATE: 04/01/2018 PREOPERATIVE DIAGNOSES: Right foot gas gangrene with abscess and cellulitis. POSTOPERATIVE DIAGNOSES: Right foot gas gangrene with abscess and cellulitis. NAME OF PROCEDURE: Right foot incision drainage of abscess with gas gangrene. SURGEON: Amanda Smith DPM ASSISTANTS: Shahnaz Olmstead DPM, PGY-1 and Kady Clay DPM, PGY-1 ANESTHESIOLOGIST: Maxim Wadsworth MD TYPE OF ANESTHESIA: IV sedation with local to 20 mL of 1:1 mixture of 2% lidocaine plain and 0.5% Marcaine plain. INDICATIONS: The patient is a 72-year-old female with the above diagnoses. The patient presented to the ED on 03/30/2018 and was found to have soft tissue emphysema in her right foot. The patient has had chronic nonhealing ulceration to the plantar aspect of her right foot. An incision and drainage was performed at bedside in the ED and approximately 15cc of purulent drainage was able to be expressed; however, the presence of purulence persisted in the right foot which required surgical intervention. The patient signed the consent after careful explanation of the risks, benefits, complications, and alternatives to surgical procedure, and wishes to proceed. No guarantees were given nor implied. PREPARATION: The patient was brought into the operating room and placed on the operating room table in a supine position. A time-out was performed for identification of the correct patient and procedure. After the induction of IV sedation, the patient received a total of 20 mL of 1:1 mixture of 2% lidocaine plain and 0.5% Marcaine plain in an ankle block type fashion to the right lower extremity. The right foot was then prepped and draped in normal sterile manner and the procedure began. DESCRIPTION OF PROCEDURE: Attention was directed to the right first metatarsal head where an ulceration #1 measuring 4.5 x 4.5 x 0.5 cm was noted. It was noted to have a 100% an eschar cap that was boggy in nature. Using the #15 blade, the eschar was excisionally debrided revealing a mixture of subcutaneous tissue and necrotic tissue. At this time, it was noted that the ulceration tracked to an incision noted at the medial aspect of the right first MPJ. All nonviable soft tissue was excisionally debrided and passed off the operative field driving attention to the incision known to the medial first MPJ. Using a curved hemostat, the incision was known to track laterally along the head of all lesser metatarsal. Approximately 10 mL of purulence was able to be expressed in this area. Directed attention to the plantar calcaneus an ulceration measuring 10.5 x 5.5 x 0.5 cm was noted. The wound was noted to have an eschar that was boggy in nature. Utilizing a #15 blade, the eschar was excisionally debrided revealing a mixture of subcutaneous tissue and necrotic tissue. This was noted to have two areas that tunnel approximately 3 cm deep first at 6 o'clock and second at 9 o'clock approximately 5 mL where purulence was able to be expressed. This wound was noted to approach to bone. All nonviable tissue was excisionally debrided. A wound culture was obtained from all three wounds, passed off the field and was sent to Pathology. Next, using a pulse lavage of 3 L of bacitracin-infused normal saline, the ulcerations were irrigated until healthy active bleeding appeared. At this time, a clean wound culture was taken from the three wound sites. A bone culture was also taken from the plantar calcaneal wound. The quarter-inch iodoform packing was placed in all three wounds and the right foot was then dressed with Betadine-soaked gauze, ABDs, and Kerlix. The attending was present for the entire case. POSTOPERATIVE CONDITION: The patient tolerated the anesthesia and procedure well and was escorted to the recovery room with vital signs stable and neurovascular status intact to the right lower extremity. Podiatry will continue to follow the patient while the patient remains in-house. Shahnaz Olmstead DPM Amanda Smith DPM GURWINDER
--- NOTE | 2018-04-04 09:19 | CARD ---
APPROVED REPORT EKG Measurement Heart [id number] <Conclusion> Normal sinus rhythm Anterior infarct, age undetermined Abnormal ECG
--- NOTE | 2018-04-05 01:28 | CP.PCM.DIS ---
Provider - Provider Date of Admission: 03/30/18 20:52 Attending physician: Tara Nam MD Time Spent in preparation of Discharge (in minutes): 35 Diagnosis - Discharge Diagnosis (1) Gas gangrene Status: Resolved Priority: High Hospital Course - Lab Results Lab Results: Micro Results 03/30/18 19:30 Blood-Venous Blood Culture - Final NO GROWTH AFTER 5 DAYS 03/30/18 19:00 Blood-Venous Blood Culture - Final NO GROWTH AFTER 5 DAYS 03/30/18 19:00 Blood-Venous Gram Stain - Final TEST NOT PERFORMED 04/01/18 08:10 Foot - Right Gram Stain - Final 04/01/18 08:10 Foot - Right Wound Culture - Final Beta Hemolytic Strep Group B 04/01/18 08:10 Foot - Right Gram Stain - Final 04/01/18 08:10 Foot - Right Wound Culture - Final Beta Hemolytic Strep Group B 04/01/18 08:10 Foot - Right Gram Stain - Final 04/01/18 08:10 Foot - Right Wound Culture - Final Beta Hemolytic Strep Group B 03/30/18 21:32 Foot - Right Gram Stain - Final 03/30/18 21:32 Foot - Right Wound Culture - Final Enterobacter Aerogenes Beta Hemolytic Strep Group B 03/31/18 04:39 Naris MRSA Culture (Admit) - Final MRSA NOT DETECTED Most Recent Lab Values WBC 12.8 K/uL (4.8-10.8) H 04/03/18 04:20 RBC 3.06 Mil/uL (3.80-5.20) L 04/03/18 04:20 Hgb 8.2 g/dL (12.0-16.0) L 04/03/18 04:20 Hct 25.6 % (34.0-47.0) L 04/03/18 04:20 MCV 83.7 fl (81.0-99.0) 04/03/18 04:20 MCH 26.8 pg (27.0-31.0) L 04/03/18 04:20 MCHC 32.0 g/dL (33.0-37.0) L 04/03/18 04:20 RDW 14.1 % (11.5-14.5) 04/03/18 04:20 Plt Count 361 K/uL (130-400) 04/03/18 04:20 MPV 7.8 fl (7.2-11.7) 03/30/18 18:18 Neut % (Auto) 84.9 % (50.0-75.0) H 03/30/18 18:18 Lymph % (Auto) 6.8 % (20.0-40.0) L 03/30/18 18:18 [place] % (Auto) 7.5 % (0.0-10.0) 03/30/18 18:18 Eos % (Auto) 0.1 % (0.0-4.0) 03/30/18 18:18 Baso % (Auto) 0.7 % (0.0-2.0) 03/30/18 18:18 Neut # (Auto) 13.9 K/uL (1.8-7.0) H 03/30/18 18:18 Lymph # (Auto) 1.1 K/uL (1.0-4.3) 03/30/18 18:18 [place] # (Auto) 1.2 K/uL (0.0-0.8) H 03/30/18 18:18 Eos # (Auto) 0.0 K/uL (0.0-0.7) 03/30/18 18:18 Baso # (Auto) 0.1 K/uL (0.0-0.2) 03/30/18 18:18 Neutrophils % (Manual) 91 % (42-75) H 03/30/18 18:18 Lymphocytes % (Manual) 4 % (20-50) L 03/30/18 18:18 Reactive Lymphs % 2 % (0-0) H 03/30/18 18:18 Monocytes % (Manual) 1 % (0-10) 03/30/18 18:18 Myelocytes % 2 % (0-0) H 03/30/18 18:18 Platelet Estimate Normal (NORMAL) 03/30/18 18:18 Hypochromasia (manual) Slight 03/30/18 18:18 Stomatocytes Slight 03/30/18 18:18 ESR > 120 mm/hr (0-30) H 03/31/18 04:17 PT 13.7 Seconds (9.8-13.1) H 03/31/18 23:14 INR 1.2 (0.9-1.2) 03/31/18 23:14 APTT 25.9 Seconds (25.6-37.1) 04/03/18 12:11 D-Dimer, Quantitative 495 ng/mlDDU (0-230) H 03/31/18 13:18 pCO2 37 mm/Hg (35-45) 03/30/18 18:45 pO2 61 mm/Hg (80-100) L 03/30/18 18:45 HCO3 26.7 mmol/L (21-28) 03/30/18 18:45 ABG pH 7.46 (7.35-7.45) H 03/30/18 18:45 ABG Total CO2 27.4 mmol/L (22-28) 03/30/18 18:45 ABG O2 Saturation 97.9 % (95-98) 03/30/18 18:45 ABG Base Excess 2.5 mmol/L (-2.0-3.0) 03/30/18 18:45 Reilly Test Yes 03/30/18 18:45 ABG Potassium 3.9 mmol/L (3.6-5.2) 03/30/18 18:45 VBG pH 6.86 (7.32-7.43) L* 03/30/18 18:20 VBG pCO2 93 mmHg (40-60) H* 03/30/18 18:20 VBG HCO3 8.8 mmol/L 03/30/18 18:20 VBG Total CO2 19.5 mmol/L (22-28) L 03/30/18 18:20 VBG O2 Sat (Calc) 56.3 % (40-65) 03/30/18 18:20 VBG Base Excess -18.5 mmol/L (0.0-2.0) L 03/30/18 18:20 A-a O2 Difference 42.0 mm/Hg 03/30/18 18:45 Sodium 133.0 mmol/L (132-148) 03/30/18 18:45 Chloride 98.0 mmol/L (98-107) 03/30/18 18:45 Glucose 588 mg/dL (65-105) H* 03/30/18 18:45 Lactate 1.7 mmol/L (0.7-2.1) 03/30/18 18:45 FiO2 21.0 % 03/30/18 18:45 Crit Value Called To Shama france 03/30/18 18:45 Crit Value Called By [id number] 03/30/18 18:45 Crit Value Read Back Y 03/30/18 18:45 Blood Gas Notified Time 1906 03/30/18 18:45 Sodium 135 mmol/l (132-148) 04/03/18 04:20 Potassium 4.2 MMOL/L (3.6-5.0) 04/03/18 04:20 Chloride 102 mmol/L (98-107) 04/03/18 04:20 Carbon Dioxide 26 mmol/L (22-30) 04/03/18 04:20 Anion Gap 11 (10-20) 04/03/18 04:20 BUN 19 mg/dl (7-17) H 04/03/18 04:20 Creatinine 0.6 mg/dl (0.7-1.2) L 04/03/18 04:20 Est GFR ( Amer) > 60 04/03/18 04:20 Est GFR (Non-Af Amer) > 60 04/03/18 04:20 POC Glucose (mg/dL) 252 mg/dL (65-110) H 04/03/18 11:15 Random Glucose 315 mg/dL (65-105) H 04/03/18 04:20 Hemoglobin A1c 12.9 % (4.2-6.5) H 04/01/18 04:40 Calcium 7.9 mg/dL (8.4-10.2) L 04/03/18 04:20 Phosphorus 2.8 mg/dl (2.5-4.5) 03/30/18 18:38 Magnesium 1.7 MG/DL (1.6-2.3) 03/30/18 18:38 Total Bilirubin 0.4 mg/dl (0.2-1.3) 04/01/18 04:40 AST 25 U/L (14-36) 04/01/18 04:40 ALT 28 U/L (9-52) 04/01/18 04:40 Alkaline Phosphatase 110 U/L (38-126) 04/01/18 04:40 Total Creatine Kinase 744 U/L (30-135) H 03/30/18 18:18 Troponin I 0.6410 ng/mL (0.00-0.120) H* 04/03/18 12:11 NT-Pro-B Natriuret Pep 4740 pg/ml (0-900) H 03/30/18 18:18 Total Protein 6.2 G/DL (6.3-8.2) L 04/01/18 04:40 Albumin 2.4 g/dL (3.5-5.0) L 04/01/18 04:40 Globulin 3.9 gm/dL (2.2-3.9) 04/01/18 04:40 Albumin/Globulin Ratio 0.6 (1.0-2.1) L 04/01/18 04:40 Triglycerides 77 mg/DL (0-149) 04/01/18 04:40 Cholesterol 114 mg/dL (0-199) 04/01/18 04:40 LDL Cholesterol Direct 65 mg/dL (0-129) 04/01/18 04:40 HDL Cholesterol 22 MG/DL (30-70) L 04/01/18 04:40 TSH 3rd Generation 0.67 mIU/ML (0.46-4.68) 04/01/18 04:40 Arterial Blood Potassium 3.9 mmol/L (3.6-5.2) 03/30/18 18:45 Stool Occult Blood Negative (NEGATIVE) 04/02/18 20:51 Blood Type A NEGATIVE 04/01/18 09:15 Blood Type Confirm A NEGATIVE 04/01/18 09:51 Antibody Screen Negative 04/01/18 09:15 Crossmatch See Detail 04/01/18 09:15 BBK History Checked No verified bt 04/01/18 09:15 - Hospital Course Hospital Course: Transferred to [facility] for Cardiac cath, and showed Triple Vessel, and Left Main Ostial Lesion, and Transferred to A tertiary Hospital for Possible CABG befre Lower Extremity Revacularization and Amputation. Discharge Exam - Head Exam Head Exam: ATRAUMATIC, NORMOCEPHALIC Discharge Plan - Follow Up Plan Condition: FAIR Disposition: Trans to Other Acute Care Hosp
== END 2018-04-03 12:00 | disposition short-term general hospital (02) | DRG 853 ==
LOC: H.ER 14:41 → H.ERHOLD 20:52 → H.ICU/CCU 23:34
PROVIDERS: ADMIT Internal Medicine; ATTEND Internal Medicine
PROC: 0S9M3ZZ Drainage of Right Metatarsal-Phalangeal Joint, Percutaneous Approach (ICD-10-PCS; 2018-03-30)
PROC: 0JBQ0ZZ Excision of Right Foot Subcutaneous Tissue and Fascia, Open Approach (ICD-10-PCS; 2018-04-01)
PROC: 0J9Q0ZZ Drainage of Right Foot Subcutaneous Tissue and Fascia, Open Approach (ICD-10-PCS; principal; 2018-04-01 18:00)
DX: A41.9 Sepsis, unspecified organism (principal); A48.0 Gas gangrene; I26.99 Other pulmonary embolism without acute cor pulmonale; I21.4 Non-ST elevation (NSTEMI) myocardial infarction; E87.2 Acidosis; L03.115 Cellulitis of right lower limb; L03.116 Cellulitis of left lower limb; D63.8 Anemia in other chronic diseases classified elsewhere; E11.21 Type 2 diabetes mellitus with diabetic nephropathy; E11.319 Type 2 diabetes mellitus with unspecified diabetic retinopathy without macular edema; E11.42 Type 2 diabetes mellitus with diabetic polyneuropathy; E11.51 Type 2 diabetes mellitus with diabetic peripheral angiopathy without gangrene; E11.621 Type 2 diabetes mellitus with foot ulcer; E11.649 Type 2 diabetes mellitus with hypoglycemia without coma; E11.65 Type 2 diabetes mellitus with hyperglycemia; E66.01 Morbid (severe) obesity due to excess calories; Z68.36 Body mass index [BMI] 36.0-36.9, adult; E86.0 Dehydration; I10 Essential (primary) hypertension; I25.10 Atherosclerotic heart disease of native coronary artery without angina pectoris; I89.0 Lymphedema, not elsewhere classified; J45.909 Unspecified asthma, uncomplicated; L97.519 Non-pressure chronic ulcer of other part of right foot with unspecified severity; L97.529 Non-pressure chronic ulcer of other part of left foot with unspecified severity; Z91.81 History of falling; Z79.4 Long term (current) use of insulin; Z79.82 Long term (current) use of aspirin; Z87.891 Personal history of nicotine dependence; Z90.49 Acquired absence of other specified parts of digestive tract; Z91.14 Patient's other noncompliance with medication regimen; Z91.19 Patient's noncompliance with other medical treatment and regimen; Z95.5 Presence of coronary angioplasty implant and graft; R00.0 Tachycardia, unspecified; R26.81 Unsteadiness on feet

== ENCOUNTER 2018-09-21 05:38 | Inpatient (IN) | payer MEDICARE, OTHER ==
[2018-09-21 05:51] VITALS: BMI 43.9
--- NOTE | 2018-09-21 06:44 | ED PDOC ---
HPI: Wound Care - HPI Time Seen by Provider: 09/21/18 06:01 Chief Complaint (Nursing): Lower Extremity Problem/Injury Chief Complaint (Provider): Lower Extremity Problem/Injury History Per: Patient Exam Limitations: no limitations Onset/Duration Of Symptoms: Days Current Symptoms Are (Timing): Still Present Quality Of Symptoms: Painful Additional Complaint(s): 72 y/o female with a PMHx of asthma and DM presents to the ED for evaluation of foot ulcers. Patient reports of having diabetic foot ulcers for approximately 5 years. Patient states she has seen wound care at [facility] but has not been able to be seen for months due to insurance issues. Patient reports that for that for the last week, she has noticed a increased breakdown of the ulcers (worse on the right foot). Patient states she still has sensations and ulcers are very painful. Otherwise, patient denies fever, nausea and vomiting. PMD: Non [facility] Provider Past Medical History Reviewed: Historical Data, Nursing Documentation, Vital Signs Vital Signs: Last Vital Signs Temp 98.1 F 09/21/18 05:50 Pulse 104 H 09/21/18 05:50 Resp 18 09/21/18 05:50 BP 129/63 09/21/18 05:50 Pulse Ox 98 09/21/18 05:50 - Medical History PMH: Asthma, Diabetes, HTN, Hypercholesterolemia, Hyperlipidemia Denies: Chronic Kidney Disease - Surgical History Surgical History: No Surg Hx - Family History Family History: States: Unknown Family Hx - Home Medications Home Medications: Ambulatory Orders Medication Instructions Recorded Alprazolam [Xanax] 0.25 mg PO DAILY 09/21/18 Aspirin [Adult Low Dose Aspirin EC] 81 mg PO DAILY 09/21/18 Atorvastatin [Lipitor] 80 mg PO DAILY 09/21/18 Clopidogrel [Plavix] 75 mg PO DAILY 09/21/18 Furosemide [Lasix] 40 mg PO DAILY 09/21/18 Gabapentin [Neurontin] 100 mg PO DAILY 09/21/18 Insulin Aspart, Recombinant 100 units SC TID 09/21/18 [Novolog] Insulin Glargine,Hum.rec.anlog 100 units SC DAILY 09/21/18 [Basaglar Kwikpen U-100] Ipratropium/Albuterol Sulfate 3 ml INH BID 09/21/18 [Iprat-Albut 0.5-3(2.5) mg/3 ml] Isosorbide Mononitrate [Isosorbide 30 mg PO DAILY 09/21/18 Mononitrate ER] Metoprolol Tartrate [Lopressor] 25 mg PO DAILY 09/21/18 Montelukast Sodium [Singulair] 10 mg PO DAILY 09/21/18 Omeprazole 40 mg PO DAILY 09/21/18 Spironolactone [Aldactone] 25 mg PO DAILY 09/21/18 - Allergies Allergies/Adverse Reactions: Allergies Allergy/AdvReac Type Severity Reaction Status Date / Time No Known Allergies Allergy Verified 09/21/18 05:50 Review of Systems ROS Statement: Except As Marked, All Systems Reviewed And Found Negative Musculoskeletal: Positive for: Foot Pain (diabetic foot ulcers (right > left)) Physical Exam - Reviewed Nursing Documentation Reviewed: Yes Vital Signs Reviewed: Yes - Physical Exam Appears: Positive for: No Acute Distress Head Exam: Positive for: ATRAUMATIC, NORMOCEPHALIC Skin: Positive for: Normal Color, Warm, Dry Eye Exam: Positive for: Normal appearance, EOMI, PERRL Neck: Positive for: Normal, Painless ROM Cardiovascular/Chest: Positive for: Regular Rate, Rhythm. Negative for: Murmur Respiratory: Positive for: Normal Breath Sounds. Negative for: Respiratory Dis tress Gastrointestinal/Abdominal: Positive for: Normal Exam, Soft Extremity: Positive for: Other (bilateral lymphedema. RIGHT FOOT: Large, non-draining ulcer noted in the heel and mid-foot. LEFT FOOT: Stage 1 ulcer to the heel of the left foot, no breakdown. ) Neurologic/Psych: Positive for: Alert, Oriented (x3). Negative for: Motor/Sensory Deficits - Laboratory Results Result Diagrams: 09/21/18 06:53 09/21/18 08:00 - ECG O2 Sat by Pulse Oximetry: 98 (RA) Pulse Ox Interpretation: Normal Medical Decision Making Medical Decision Making: Time: 0636 A/P: 72 y/o female with diabetic foot ulcers. -- Will require imaging, bloodwork and podiatry consult. -- BMP -- CRP -- CBC with Differentials -- Erythrocyte Sedimentation Rate -- Foot Right 3 Views Routine XR Time: 0700 -- Patient endorsed to Dr. Conn, pending imaging, bloodwork and podiatry consult. _ Scribe Attestation: Documented by Elicia Hyatt, acting as a scribe for Jason Jorge MD. Provider Scribe Attestation: All medical record entries made by the Scribe were at my direction and person ally dictated by me. I have reviewed the chart and agree that the record accurately reflects my personal performance of the history, physical exam, medical decision making, and the department course for this patient. I have also personally directed, reviewed, and agree with the discharge instructions and disposition. Disposition - Clinical Impression Clinical Impression: Diabetic foot ulcer - Patient ED Disposition Is Patient to be Admitted: Transfer of Care - Disposition Disposition: Transfer of Care Disposition Time: 07:00 Condition: FAIR Patient Signed Over To: Tom Conn
--- NOTE | 2018-09-21 08:18 | RAD ---
Date of service: 09/21/2018 PROCEDURE: Right Foot Radiographs. HISTORY: diabetic, ulcers COMPARISON: 03/30/2018 FINDINGS: BONES: Diffuse osteopenia is appreciated. Degenerative changes are identified. No fracture is seen. No bone destruction is noted. No erosions are noted. JOINTS: See above. SOFT TISSUES: Diffuse soft tissue swelling as was seen on prior exam. OTHER FINDINGS: Calcaneal spur is noted. Visualized ankle joint region shows degenerative changes. There is grossly stable appearance of the talus and subtalar joint although limited by technique. IMPRESSION: Moderate soft tissue swelling. No radiopaque foreign body. No appreciable plain film evidence of osteomyelitis or fracture although limited by diffuse osteopenia.
[2018-09-21 08:27] LABS: BASO % 0.4 % (0.0-2.0); EOS # 0.2 K/uL (0.0-0.7); EOS % 2.3 % (0.0-4.0); HEMOGLOBIN 8.6 g/dL (12.0-16.0); LYMPH # 1.3 K/uL (1.0-4.3); LYMPH % 18.4 % (20.0-40.0); MEAN CELL VOLUME 93.6 fl (81.0-99.0); MEAN CORPUSCULAR HEMOGLOBIN 29.6 pg (27.0-31.0); MEAN CORPUSCULAR HGB CONC 31.6 g/dL (33.0-37.0); MEAN PLATELET VOLUME 8.4 fl (7.2-11.7); MONO # 0.7 K/uL (0.0-0.8); MONO % 9.8 % (0.0-10.0); NEUT # 4.8 K/uL (1.8-7.0); NEUT % 69.1 % (50.0-75.0); NRBC % 0.1 % (0.0-0.0); RBC 2.92 Mil/uL (3.80-5.20); RED CELL DISTRIBUTION WIDTH 14.3 % (11.5-14.5)
[2018-09-21 08:38] LABS: BLOOD UREA NITROGEN 17 mg/dl (7-17); CALCIUM 8.9 mg/dL (8.4-10.2); GFR NON-AFRICAN AMERICAN > 60
[2018-09-21] MEDS ORDERED: Ciprofloxacin 400mg/200ml D5W 400 MG/200 ML BAG IVPB STA (09:18)
--- NOTE | 2018-09-21 09:22 | ED PDOC ---
- Laboratory Results Result Diagrams: 09/21/18 06:53 09/21/18 08:00 - ECG O2 Sat by Pulse Oximetry: 98 (RA) Disposition - Clinical Impression Clinical Impression: Diabetic foot ulcer - POA Present On Arrival: Pressure Ulcer - Disposition Disposition: Admitted as In-Patient Disposition Time: 09:22 Condition: FAIR Forms: [facility] (Sami)
[2018-09-21] MEDS ORDERED: Ciprofloxacin 400mg/200ml D5W 400 MG/200 ML BAG IVPB ONE ×2 (09:34→09:57)
[2018-09-21 10:15] LABS: VENOUS BLOOD GAS PCO2 49 mmHg (40-60); VENOUS BLOOD GAS PO2 25 mm/Hg (30-55); VENOUS BLOOD PH 7.38 (7.32-7.43)
[2018-09-21] MEDS ORDERED: Vancomycin 1 g Inj ONE (11:19)
[2018-09-21] MEDS ORDERED: Povidone Iodine Topical 10% Sol ONE (14:35)
--- NOTE | 2018-09-21 16:55 | CP.PCM.CON ---
History of Present Illness - History of Present Illness History of Present Illness: Podiatry Consult note for Dr. Smith: 72 yo female patient, with PMHx of DM, HTN, ME, seen and evaluated at bedside for bilateral lower extremity erythema, edema and ulcerations. Patient states she was admitted at [facility] in March 2018 for her foot wounds. Patient is accompanied by her son at bedside. Patient states that she has not been able to walk since March due to her foot wounds. She rates significant pain to her B/L lower extremities. Denies N/V/F/SOB/CP/Chills. PMHx: DM, HTN, PSHx: Denies Allergies: NKDA SHx: Denies smoking, denies illicit drug usage Review of Systems - Review of Systems Review of Systems: As per HPI Past Patient History - Past Medical History & Family History Past Medical History?: Yes - Past Social History Smoking Status: Former Smoker - CARDIAC Hx Cardiac Disorders: Yes - PULMONARY Hx Respiratory Disorders: Yes - NEUROLOGICAL Hx Neurological Disorder: No - HEENT Hx HEENT Problems: Yes Other/Comment: Uses eye glasses. - RENAL Hx Chronic Kidney Disease: No - ENDOCRINE/METABOLIC Hx Endocrine Disorders: Yes Hx Diabetes Mellitus Type 2: Yes - HEMATOLOGICAL/ONCOLOGICAL Hx Blood Disorders: No - INTEGUMENTARY Other/Comment: Scaly bilateral lower legs. - MUSCULOSKELETAL/RHEUMATOLOGICAL Hx Musculoskeletal Disorders: Yes Hx Falls: Yes Hx Unsteady Gait: Yes - GASTROINTESTINAL Hx Gastrointestinal Disorders: No - GENITOURINARY/GYNECOLOGICAL Hx Genitourinary Disorders: No - PSYCHIATRIC Hx Psychophysiologic Disorder: No Hx Substance Use: No - SURGICAL HISTORY Hx Surgeries: No - ANESTHESIA Hx Anesthesia: No Hx Anesthesia Reactions: No Hx Malignant Hyperthermia: No Meds Allergies/Adverse Reactions: Allergies Allergy/AdvReac Type Severity Reaction Status Date / Time No Known Allergies Allergy Verified 09/21/18 05:50 - Medications Medications: Current Medications Albuterol/Ipratropium (Duoneb 3 Mg/0.5 Mg (3 Ml) Ud) 3 ml INH RQ6 PRN PRN Reason: Shortness of Breath Alprazolam (Xanax) 0.25 mg PO HS SARAH Stop: 09/28/18 22:01 Aspirin (Ecotrin) 81 mg PO DAILY SARAH Atorvastatin Calcium (Lipitor) 80 mg PO HS [facility] Clopidogrel Bisulfate (Plavix) 75 mg PO DAILY SARAH Furosemide (Lasix) 40 mg PO DAILY SARAH Gabapentin (Neurontin) 100 mg PO DAILY SARAH Heparin Sodium (Porcine) (Heparin) 5,000 units SC Q8 SARAH; Protocol Ciprofloxacin (Cipro 200mg/100ml D5w) 100 mls @ 100 mls/hr IVPB Q12 SARAH; Protocol Vancomycin HCl 1 gm/ Sodium (Chloride) 250 mls @ 166.667 mls/hr IVPB Q12 SARAH; Protocol Insulin Human Lispro (Humalog) 0 units SC ACHS SARAH; Protocol Isosorbide Mononitrate (Imdur Er) 30 mg PO DAILY SARAH Metoprolol Tartrate (Lopressor) 25 mg PO DAILY SARAH Montelukast Sodium (Singulair) 10 mg PO DAILY SARAH Pantoprazole Sodium (Protonix Ec Tab) 40 mg PO DAILY SARAH Spironolactone (Aldactone) 25 mg PO DAILY SARAH Physical Exam - Constitutional Appears: Well, Non-toxic, No Acute Distress - Head Exam Head Exam: ATRAUMATIC, NORMOCEPHALIC - Extremities Exam Additional comments: Vasc: DP/PT pulses are non-palpable bilaterally, Cap refill time < 3 sec to all digits, TG warm to warm, +2 edema noted extending from foot proximally to the mid leg level bilaterally Ortho: Pain on palpation to all wounds; pain upon ROM bilateral LE. No pain on palpation of the calf b/l Neuro: Gross sensation intact, protective sensation absent Derm: LLE: Superficial ulceration noted to posterior aspect of inferior 1/3 of calf, serous drainage present, no malodor, no purulence, no tunneling no tracking. Bullae formation to anterior aspect of leg with intact roof, mild weeping appreciated circumfrentially to midleg. DTI to left heel appreciated RLE: Circular ulceration measuring approximately 5x4.5 extending into subcutaneous tissue noted to R heel with fibrous base, + malodor, + serous drainage, no purulence appreciated. No tunneling or tracking appreciated. No probe to bone. t - Neurological Exam Neurological exam: Alert, Oriented x3 - Psychiatric Exam Psychiatric exam: Normal Affect, Normal Mood Results - Vital Signs Recent Vital Signs: Last Vital Signs Temp 97.7 F 09/21/18 16:25 Pulse 75 09/21/18 16:25 Resp 20 09/21/18 16:25 BP 159/82 H 09/21/18 16:25 Pulse Ox 100 09/21/18 16:25 - Labs Result Diagrams: 09/21/18 06:53 09/21/18 08:00 Labs: Laboratory Results - last 24 hr 09/21/18 09/21/18 09/21/18 06:53 08:00 10:09 WBC 7.0 RBC 2.92 L Hgb 8.6 L Hct 27.4 L MCV 93.6 D MCH 29.6 MCHC 31.6 L RDW 14.3 Plt Count 270 MPV 8.4 Neut % (Auto) 69.1 Lymph % (Auto) 18.4 L [place] % (Auto) 9.8 Eos % (Auto) 2.3 Baso % (Auto) 0.4 Neut # (Auto) 4.8 Lymph # (Auto) 1.3 [place] # (Auto) 0.7 Eos # (Auto) 0.2 Baso # (Auto) 0.0 ESR 78 H pO2 25 L VBG pH 7.38 VBG pCO2 49 VBG HCO3 25.8 VBG Total CO2 30.5 H VBG O2 Sat (Calc) 52.4 VBG Base Excess 3.0 H VBG Potassium 3.5 L Glucose 161 H Lactate 1.6 FiO2 21.0 Sodium 143 141.0 Potassium 3.5 L Chloride 108 H 110.0 H Carbon Dioxide 26 Anion Gap 13 BUN 17 Creatinine 0.6 L Est GFR ( Amer) > 60 Est GFR (Non-Af Amer) > 60 Random Glucose 133 H Calcium 8.9 Venous Blood Potassium 3.5 L Assessment & Plan - Assessment and Plan (Free Text) Assessment: 72 yo female patient, with PMHx of DM, HTN, ME, seen and evaluated at bedside for bilateral lower extremity erythema, edema and ulcerations. Plan: Patient seen and evaluated Discussed with Dr. Smith Continue with IV abx R foot x-rays; moderate soft tissue swelling, no OM or fracture, diffuse osteopenia R wound culture taken; pending Local wound care: R dressed with betadine, ABD, DSD, L dressed with xeroform, ABD, DSD Multipodus boots ordered, to be worn at all times while in bed Podiatry will continue to follow Thank you for the consult - Date & Time Date: 09/21/18 Time: 16:55
[2018-09-21] MEDS: Ciprofloxacin 200mg/100ml D5W 100 ML IVPB SCH (20:12)
[2018-09-21] MEDS: Insulin Lispro (humaLOG) 100 Units/ml Inj SC SCH (22:41)
[2018-09-22] MEDS: Albuterol-Ipratrop 3 mg / 0.5 (3 ml) UD INH PRN (00:22)
[2018-09-22] MEDS ORDERED: Levalbuterol 1.25 MG/3 ML Inhal Soln UD INH ONE (02:30)
[2018-09-22] MEDS: Insulin Lispro (humaLOG) 100 Units/ml Inj SC SCH ×4 (07:10→22:49)
[2018-09-22 07:20] LABS: HEMOGLOBIN 8.7 g/dL (12.0-16.0); MEAN CELL VOLUME 90.7 fl (81.0-99.0); MEAN CORPUSCULAR HEMOGLOBIN 28.9 pg (27.0-31.0); MEAN CORPUSCULAR HGB CONC 31.8 g/dL (33.0-37.0); RBC 3.02 Mil/uL (3.80-5.20); RED CELL DISTRIBUTION WIDTH 14.1 % (11.5-14.5); WHITE BLOOD COUNT 6.2 K/uL (4.8-10.8)
[2018-09-22 07:59] LABS: ALB/GLOB RATIO 0.8 (1.0-2.1); ALT/SGPT 24 U/L (9-52); AST/SGOT 20 U/L (14-36); BLOOD UREA NITROGEN 16 mg/dl (7-17); CALCIUM 8.8 mg/dL (8.4-10.2); GFR NON-AFRICAN AMERICAN > 60
[2018-09-22] MEDS: Pantoprazole 40 mg EC Tab PO SCH (10:11)
[2018-09-22] MEDS: Ciprofloxacin 200mg/100ml D5W 100 ML IVPB SCH ×2 (10:17→21:39)
--- NOTE | 2018-09-22 15:12 | CP.PCM.PN ---
Subjective - Date & Time of Evaluation Date of Evaluation: 09/22/18 Time of Evaluation: 15:10 - Subjective Subjective: Podiatry Consult Note: Dr. Smith: 72F patient,seen and evaluated at bedside for bilateral lower extremity erythema, edema and ulcerations. Patient is resting comfortably and in NAD. She rates moderate pain to her B/L lower extremities. She denies any acute events overnight. Denies N/V/F/SOB/CP/Chills. Objective - Vital Signs/Intake and Output Vital Signs (last 24 hours): Temp Pulse Resp BP Pulse Ox 98 F 81 18 140/77 99 09/22/18 08:33 09/22/18 08:33 09/22/18 08:33 09/22/18 08:33 09/22/18 08:33 - Medications Medications: Current Medications Albuterol/Ipratropium (Duoneb 3 Mg/0.5 Mg (3 Ml) Ud) 3 ml INH RQ6 PRN PRN Reason: Shortness of Breath Last Admin: 09/22/18 00:22 Dose: 3 ml Alprazolam (Xanax) 0.25 mg PO Q12 PRN PRN Reason: Anxiety Stop: 09/28/18 21:10 Last Admin: 09/22/18 04:26 Dose: 0.25 mg Aspirin (Ecotrin) 81 mg PO DAILY [facility] Last Admin: 09/22/18 09:59 Dose: 81 mg Atorvastatin Calcium (Lipitor) 80 mg PO HS [facility] Last Admin: 09/21/18 22:43 Dose: 80 mg Clopidogrel Bisulfate (Plavix) 75 mg PO DAILY [facility] Last Admin: 09/22/18 10:08 Dose: 75 mg Diphenhydramine HCl (Benadryl) 25 mg PO Q6 PRN PRN Reason: Itching / Pruritus Furosemide (Lasix) 40 mg PO DAILY [facility] Gabapentin (Neurontin) 100 mg PO DAILY [facility] Heparin Sodium (Porcine) (Heparin) 5,000 units SC Q8 [facility]; Protocol Last Admin: 09/22/18 10:12 Dose: 5,000 units Ciprofloxacin (Cipro 200mg/100ml D5w) 100 mls @ 100 mls/hr IVPB Q12 [facility]; Protocol Last Admin: 09/22/18 10:17 Dose: 100 mls/hr Vancomycin HCl 1 gm/ Sodium (Chloride) 250 mls @ 166.667 mls/hr IVPB Q12 [facility]; Protocol Last Admin: 09/22/18 10:20 Dose: 166.667 mls/hr Insulin Human Lispro (Humalog) 0 units SC ACHS [facility]; Protocol Last Admin: 09/22/18 12:32 Dose: 1 u Isosorbide Mononitrate (Imdur Er) 30 mg PO DAILY [facility] Last Admin: 09/22/18 10:15 Dose: 30 mg Metoprolol Tartrate (Lopressor) 12.5 mg PO Q12 [facility] Montelukast Sodium (Singulair) 10 mg PO DAILY [facility] Last Admin: 09/22/18 10:13 Dose: 10 mg Pantoprazole Sodium (Protonix Ec Tab) 40 mg PO DAILY [facility] Last Admin: 09/22/18 10:11 Dose: 40 mg Spironolactone (Aldactone) 25 mg PO DAILY [facility] Last Admin: 09/22/18 10:15 Dose: 25 mg - Labs Labs: 09/22/18 05:30 09/22/18 05:30 - Constitutional Appears: Well, Non-toxic, No Acute Distress - Head Exam Head Exam: ATRAUMATIC - Extremities Exam Additional comments: B/L lower extremtiy focused exam: Vasc: DP/PT pulses are non-palpable bilaterally, Cap refill time < 3 sec to all digits, TG warm to warm, +2 edema noted extending from foot proximally to the mid leg level bilaterally Ortho: Pain on palpation to all wounds; pain upon ROM bilateral LE. No pain on palpation of the calf b/l Neuro: Gross sensation intact, protective sensation absent Derm: LLE: Superficial ulceration noted to posterior aspect of inferior 1/3 of calf, serous drainage present, no malodor, no purulence, no tunneling no tracking. Bullae formation to anterior aspect of leg with intact roof, mild weeping appreciated circumfrentially to midleg. DTI to left heel appreciated RLE: Circular ulceration measuring approximately 5x4.5 extending into subcutaneous tissue noted to R heel with fibrous base, + malodor, + serous drainage, no purulence appreciated. No tunneling or tracking appreciated. No probe to bone. - Neurological Exam Neurological Exam: Alert, Awake, Oriented x3 - Psychiatric Exam Psychiatric exam: Normal Affect, Normal Mood Assessment and Plan - Assessment and Plan (Free Text) Assessment: 72F patient, seen and evaluated at bedside for bilateral lower extremity erythema, edema and ulcerations. Plan: Patient seen and evaluated, discussed patient plan with Dr. Smith Continue with IV abx R foot x-rays; moderate soft tissue swelling, no OM or fracture, diffuse osteopenia R wound culture taken; gram + cocci Local wound care: R dressed with betadine, ABD, DSD, L dressed with xeroform, ABD, DSD Multipodus boots ordered, to be worn at all times while in bed Will continue to follow
--- NOTE | 2018-09-22 23:56 | CP.PCM.HP ---
History of Present Illness - History of Present Illness History of Present Illness: CC: Infected Foot Ulcer History of Present Illness: A 72 y/o female with a PMHx of Asthma and DM II presents to the ED for evaluation of foot ulcers. Patient reports of having diabetic foot ulcers for approximately 5 years. Patient states she has seen wound care at [place] but has not been able to be seen for months due to insurance issues. Patient reports that for that for the last week, she has noticed an increased breakdown of the ulcers (worse on the right foot). Patient states she still has sensations and ulcers are very painful. Otherwise, patient denies fever, nausea and vomiting. Present on Admission - Present on Admission Any Indicators Present on Admission: No Review of Systems - Review of Systems All systems: reviewed and no additional remarkable complaints except Review of Systems: As per HPI Past Patient History - Past Medical History & Family History Past Medical History?: Yes Past Family History: Reviewed and not pertinent - Past Social History Smoking Status: Former Smoker Alcohol: None Drugs: Denies - CARDIAC Hx Hypercholesterolemia: Yes Hx Hypertension: Yes - PULMONARY Hx Asthma: Yes - NEUROLOGICAL Hx Neurological Disorder: No - HEENT Hx HEENT Problems: Yes Other/Comment: Uses eye glasses. - RENAL Hx Chronic Kidney Disease: No - ENDOCRINE/METABOLIC Hx Endocrine Disorders: Yes Hx Diabetes Mellitus Type 2: Yes - HEMATOLOGICAL/ONCOLOGICAL Hx Blood Disorders: No - INTEGUMENTARY Other/Comment: Scaly bilateral lower legs. - MUSCULOSKELETAL/RHEUMATOLOGICAL Hx Musculoskeletal Disorders: Yes Hx Falls: Yes Hx Unsteady Gait: Yes - GASTROINTESTINAL Hx Gastrointestinal Disorders: No - GENITOURINARY/GYNECOLOGICAL Hx Genitourinary Disorders: No - PSYCHIATRIC Hx Psychophysiologic Disorder: No Hx Substance Use: No - SURGICAL HISTORY Hx Surgeries: No - ANESTHESIA Hx Anesthesia: No Hx Anesthesia Reactions: No Hx Malignant Hyperthermia: No Meds Allergies/Adverse Reactions: Allergies Allergy/AdvReac Type Severity Reaction Status Date / Time No Known Allergies Allergy Verified 09/21/18 05:50 Physical Exam - Constitutional Appears: Well, No Acute Distress, Chronically Ill - Head Exam Head Exam: ATRAUMATIC, NORMAL INSPECTION, NORMOCEPHALIC - Eye Exam Eye Exam: EOMI, Normal appearance, PERRL Pupil Exam: NORMAL ACCOMODATION, PERRL - ENT Exam ENT Exam: Mucous Membranes Moist, Normal Exam - Neck Exam Neck exam: Positive for: Normal Inspection - Respiratory Exam Respiratory Exam: Clear to Auscultation Bilateral, NORMAL BREATHING PATTERN - Cardiovascular Exam Cardiovascular Exam: REGULAR RHYTHM, +S1, +S2 - GI/Abdominal Exam GI & Abdominal Exam: Normal Bowel Sounds, Soft. absent: Tenderness - Extremities Exam Additional comments: Vasc: DP/PT pulses are non-palpable bilaterally, Cap refill time < 3 sec to all digits, TG warm to warm, +2 edema noted extending from foot proximally to the mid leg level bilaterally Ortho: Pain on palpation to all wounds; pain upon ROM bilateral LE. No pain on palpation of the calf b/l Neuro: Gross sensation intact, protective sensation absent Derm: LLE: Superficial ulceration noted to posterior aspect of inferior 1/3 of calf, serous drainage present, no malodor, no purulence, no tunneling no tracking. Bullae formation to anterior aspect of leg with intact roof, mild weeping appreciated circumfrentially to midleg. DTI to left heel appreciated RLE: Circular ulceration measuring approximately 5x4.5 extending into subcutaneous tissue noted to R heel with fibrous base, + malodor, + serous drainage, no purulence appreciated. No tunneling or tracking appreciated. No probe to bone. - Back Exam Back exam: NORMAL INSPECTION - Neurological Exam Neurological exam: Alert, CN II-XII Intact, Normal Gait, Oriented x3, Reflexes Normal - Psychiatric Exam Psychiatric exam: Normal Affect, Normal Mood Results - Vital Signs Recent Vital Signs: Last Vital Signs Temp 97.7 F 09/22/18 16:41 Pulse 66 09/22/18 21:46 Resp 20 09/22/18 16:41 BP 153/63 H 09/22/18 21:46 Pulse Ox 100 09/22/18 16:41 - Labs Result Diagrams: 09/24/18 05:45 09/24/18 05:45 Labs: Laboratory Results - last 24 hr 09/22/18 09/22/18 05:30 05:30 WBC 6.2 RBC 3.02 L Hgb 8.7 L Hct 27.4 L MCV 90.7 D MCH 28.9 MCHC 31.8 L RDW 14.1 Plt Count 250 Sodium 143 Potassium 3.8 Chloride 109 H Carbon Dioxide 26 Anion Gap 12 BUN 16 Creatinine 0.7 Est GFR ( Amer) > 60 Est GFR (Non-Af Amer) > 60 Random Glucose 175 H Calcium 8.8 Total Bilirubin 0.7 AST 20 ALT 24 Alkaline Phosphatase 178 H D Total Protein 6.8 Albumin 3.0 L D Globulin 3.8 Albumin/Globulin Ratio 0.8 L - Imaging and Cardiology XR foot: Status: Report reviewed by me Additional comment: Date of service: 09/21/2018 PROCEDURE: Right Foot Radiographs. HISTORY: diabetic, ulcers COMPARISON: 03/30/2018 FINDINGS: BONES: Diffuse osteopenia is appreciated. Degenerative changes are identified. No fracture is seen. No bone destruction is noted. No erosions are noted. JOINTS: See above. SOFT TISSUES: Diffuse soft tissue swelling as was seen on prior exam. OTHER FINDINGS: Calcaneal spur is noted. Visualized ankle joint region shows degenerative changes. There is grossly stable appearance of the talus and subtalar joint although limited by technique. IMPRESSION: Moderate soft tissue swelling. No radiopaque foreign body. No appreciable plain film evidence of osteomyelitis or fracture although limited by diffuse osteopenia. Assessment & Plan (1) Type 1 diabetes mellitus with diabetic foot infection Status: Acute (2) Diabetic foot ulcer Status: Acute (3) DVT prophylaxis Status: Acute (4) Fall Status: Acute Priority: Medium (5) PVD (peripheral vascular disease) Status: Acute Priority: High - Assessment and Plan (Free Text) Plan: IVF IV Vanconycin and Ciprofloxacin Wound Care daily by the public welfare director MRI of the Left Leg and B/L Foot ID on board Pain Medication PRN CBCD and CMP Wound culture Blood Culture
[2018-09-23] MEDS: Ciprofloxacin 200mg/100ml D5W 100 ML IVPB SCH ×2 (08:18→20:45)
[2018-09-23] MEDS: Pantoprazole 40 mg EC Tab PO SCH (08:20)
[2018-09-23] MEDS: Insulin Lispro (humaLOG) 100 Units/ml Inj SC SCH ×4 (08:23→22:01)
--- NOTE | 2018-09-23 08:39 | CP.PCM.PN ---
Subjective - Date & Time of Evaluation Date of Evaluation: 09/23/18 Time of Evaluation: 08:38 - Subjective Subjective: Podiatry progress Note: Dr. Smith: 72F patient,seen and evaluated at bedside for bilateral lower extremity erythema, edema and ulcerations. Patient is resting comfortably and in NAD. She rates moderate pain to her B/L lower extremities. She denies any acute events overnight. Denies N/V/F/SOB/CP/Chills. Objective - Vital Signs/Intake and Output Vital Signs (last 24 hours): Temp Pulse Resp BP Pulse Ox 98 F 75 20 137/85 97 09/23/18 01:11 09/23/18 08:22 09/23/18 01:11 09/23/18 08:20 09/23/18 01:11 - Medications Medications: Current Medications Albuterol/Ipratropium (Duoneb 3 Mg/0.5 Mg (3 Ml) Ud) 3 ml INH RQ6 PRN PRN Reason: Shortness of Breath Last Admin: 09/22/18 00:22 Dose: 3 ml Alprazolam (Xanax) 0.25 mg PO Q12 PRN PRN Reason: Anxiety Stop: 09/28/18 21:10 Last Admin: 09/22/18 04:26 Dose: 0.25 mg Aspirin (Ecotrin) 81 mg PO DAILY [facility] Last Admin: 09/23/18 08:19 Dose: 81 mg Atorvastatin Calcium (Lipitor) 80 mg PO HS [facility] Last Admin: 09/22/18 21:46 Dose: 80 mg Clopidogrel Bisulfate (Plavix) 75 mg PO DAILY [facility] Last Admin: 09/23/18 08:19 Dose: 75 mg Diphenhydramine HCl (Benadryl) 25 mg PO Q6 PRN PRN Reason: Itching / Pruritus Furosemide (Lasix) 40 mg PO DAILY [facility] Last Admin: 09/23/18 08:20 Dose: 40 mg Gabapentin (Neurontin) 100 mg PO DAILY [facility] Last Admin: 09/23/18 08:20 Dose: 100 mg Heparin Sodium (Porcine) (Heparin) 5,000 units SC Q8 [facility]; Protocol Last Admin: 09/23/18 08:20 Dose: 5,000 units Ciprofloxacin (Cipro 200mg/100ml D5w) 100 mls @ 100 mls/hr IVPB Q12 [facility]; Protocol Last Admin: 09/23/18 08:18 Dose: 100 mls/hr Vancomycin HCl 1 gm/ Sodium (Chloride) 250 mls @ 166.667 mls/hr IVPB Q12 [facility]; Protocol Last Admin: 09/23/18 08:18 Dose: 166.667 mls/hr Insulin Human Lispro (Humalog) 0 units SC ACHS [facility]; Protocol Last Admin: 09/23/18 08:23 Dose: 1 u Isosorbide Mononitrate (Imdur Er) 30 mg PO DAILY [facility] Last Admin: 09/23/18 08:19 Dose: 30 mg Metoprolol Tartrate (Lopressor) 12.5 mg PO Q12 [facility] Last Admin: 09/23/18 08:22 Dose: 12.5 mg Montelukast Sodium (Singulair) 10 mg PO DAILY [facility] Last Admin: 09/23/18 08:20 Dose: 10 mg Pantoprazole Sodium (Protonix Ec Tab) 40 mg PO DAILY [facility] Last Admin: 09/23/18 08:20 Dose: 40 mg Spironolactone (Aldactone) 25 mg PO DAILY [facility] Last Admin: 09/23/18 08:19 Dose: 25 mg - Labs Labs: 09/22/18 05:30 09/22/18 05:30 - Constitutional Appears: Well, Non-toxic - Head Exam Head Exam: ATRAUMATIC - Extremities Exam Additional comments: B/L lower extremtiy focused exam: Vasc: DP/PT pulses are non-palpable bilaterally, Cap refill time < 3 sec to all digits, TG warm to warm, +2 edema noted extending from foot proximally to the mid leg level bilaterally Ortho: Pain on palpation to all wounds; pain upon ROM bilateral LE. No pain on palpation of the calf b/l Neuro: Gross sensation intact, protective sensation absent Derm: LLE: Superficial ulceration noted to posterior aspect of inferior 1/3 of calf, serous drainage present, no malodor, no purulence, no tunneling no tracking. superficial bullae noted to the anterior aspect of the proximal left leg and central plantar aspect of the left rearfoot, mild weeping appreciated circumferentially to midleg. DTI to left heel appreciated RLE: Circular ulceration measuring approximately 5x4.5 extending into subcutaneous tissue noted to R heel with fibrous base, + malodor, + serous drainage, no purulence appreciated. No tunneling or tracking appreciated. No probe to bone. - Neurological Exam Neurological Exam: Alert, Awake - Psychiatric Exam Psychiatric exam: Normal Affect Assessment and Plan - Assessment and Plan (Free Text) Assessment: 72F patient, seen and evaluated at bedside for bilateral lower extremity erythema, edema and ulcerations. Plan: Patient seen and evaluated, discussed patient plan with Dr. Smith Continue with IV abx R foot x-rays; moderate soft tissue swelling, no OM or fracture, diffuse osteopenia R wound culture taken; gram + cocci Local wound care: R dressed with betadine, ABD, DSD, L dressed with xeroform, ABD, DSD WENDI/PVR ordered blisters incised and drained using a sterile #15 blade tolerated; without any complications Multipodus boots ordered, to be worn at all times while in bed Will continue to follow
[2018-09-23] MEDS: Albuterol-Ipratrop 3 mg / 0.5 (3 ml) UD INH PRN (09:23)
[2018-09-24] MEDS: guaiFENesin DM 200 mg-20 mg/10 ml UD PO PRN (00:58)
[2018-09-24 06:03] LABS: HEMOGLOBIN 8.9 g/dL (12.0-16.0); MEAN CELL VOLUME 91.5 fl (81.0-99.0); MEAN CORPUSCULAR HEMOGLOBIN 28.9 pg (27.0-31.0); MEAN CORPUSCULAR HGB CONC 31.6 g/dL (33.0-37.0); RBC 3.08 Mil/uL (3.80-5.20); RED CELL DISTRIBUTION WIDTH 14.2 % (11.5-14.5); WHITE BLOOD COUNT 5.2 K/uL (4.8-10.8)
[2018-09-24 06:26] LABS: ALB/GLOB RATIO 0.9 (1.0-2.1); ALT/SGPT 22 U/L (9-52); AST/SGOT 15 U/L (14-36); BLOOD UREA NITROGEN 15 mg/dl (7-17); CALCIUM 8.7 mg/dL (8.4-10.2); GFR NON-AFRICAN AMERICAN > 60
[2018-09-24] MEDS: Insulin Lispro (humaLOG) 100 Units/ml Inj SC SCH ×4 (08:30→22:45)
--- NOTE | 2018-09-24 08:33 | CP.PCM.PN ---
Subjective - Date & Time of Evaluation Date of Evaluation: 09/24/18 Time of Evaluation: 08:33 - Subjective Subjective: Podiatry progress Note: Dr. Smith: 72F patient,seen and evaluated at bedside for bilateral lower extremity erythema, edema and ulcerations. Patient is resting comfortably and in NAD. She rates moderate pain to her B/L lower extremities. She denies any acute events overnight. Denies N/V/F/SOB/CP/Chills. Objective - Vital Signs/Intake and Output Vital Signs (last 24 hours): Temp Pulse Resp BP Pulse Ox 97.9 F 71 20 101/66 98 09/24/18 01:54 09/24/18 01:54 09/24/18 01:54 09/24/18 01:54 09/24/18 01:54 - Medications Medications: Current Medications Albuterol/Ipratropium (Duoneb 3 Mg/0.5 Mg (3 Ml) Ud) 3 ml INH RQ6 PRN PRN Reason: Shortness of Breath Last Admin: 09/23/18 09:23 Dose: 3 ml Alprazolam (Xanax) 0.25 mg PO Q12 PRN PRN Reason: Anxiety Stop: 09/28/18 21:10 Last Admin: 09/24/18 05:56 Dose: 0.25 mg Aspirin (Ecotrin) 81 mg PO DAILY [facility] Last Admin: 09/23/18 08:19 Dose: 81 mg Atorvastatin Calcium (Lipitor) 80 mg PO HS [facility] Last Admin: 09/23/18 21:53 Dose: 80 mg Clopidogrel Bisulfate (Plavix) 75 mg PO DAILY [facility] Last Admin: 09/23/18 08:19 Dose: 75 mg Diphenhydramine HCl (Benadryl) 25 mg PO Q6 PRN PRN Reason: Itching / Pruritus Last Admin: 09/24/18 06:30 Dose: 25 mg Furosemide (Lasix) 40 mg PO DAILY [facility] Last Admin: 09/23/18 08:20 Dose: 40 mg Gabapentin (Neurontin) 100 mg PO DAILY [facility] Last Admin: 09/23/18 08:20 Dose: 100 mg Guaifenesin/Dextromethorphan (Robitussin Dm) 10 ml PO Q6 PRN PRN Reason: Cough Last Admin: 09/24/18 00:58 Dose: 10 ml Heparin Sodium (Porcine) (Heparin) 5,000 units SC Q8 [facility]; Protocol Last Admin: 09/24/18 00:58 Dose: 5,000 units Ciprofloxacin (Cipro 200mg/100ml D5w) 100 mls @ 100 mls/hr IVPB Q12 [facility]; Protocol Last Admin: 09/23/18 20:45 Dose: 100 mls/hr Vancomycin HCl 1 gm/ Sodium (Chloride) 250 mls @ 166.667 mls/hr IVPB Q12 [facility]; Protocol Last Admin: 09/23/18 21:54 Dose: 166.667 mls/hr Insulin Human Lispro (Humalog) 0 units SC ACHS [facility]; Protocol Last Admin: 09/23/18 22:01 Dose: Not Given Isosorbide Mononitrate (Imdur Er) 30 mg PO DAILY [facility] Last Admin: 09/23/18 08:19 Dose: 30 mg Metoprolol Tartrate (Lopressor) 12.5 mg PO Q12 [facility] Last Admin: 09/23/18 21:49 Dose: 12.5 mg Montelukast Sodium (Singulair) 10 mg PO HS [facility] Pantoprazole Sodium (Protonix Ec Tab) 40 mg PO DAILY [facility] Last Admin: 09/23/18 08:20 Dose: 40 mg Spironolactone (Aldactone) 25 mg PO DAILY [facility] Last Admin: 09/23/18 08:19 Dose: 25 mg - Labs Labs: 09/24/18 05:45 09/24/18 05:45 - Constitutional Appears: Well, Non-toxic - Head Exam Head Exam: ATRAUMATIC - Extremities Exam Additional comments: B/L lower extremtiy focused exam: Vasc: DP/PT pulses are non-palpable bilaterally, Cap refill time < 3 sec to all digits, TG warm to warm, +2 edema noted extending from foot proximally to the mid leg level bilaterally Ortho: Pain on palpation to all wounds; pain upon ROM bilateral LE. No pain on palpation of the calf b/l Neuro: Gross sensation intact, protective sensation absent Derm: LLE: Superficial ulceration noted to posterior aspect of inferior 1/3 of calf, serous drainage present, no malodor, no purulence, no tunneling no tracking. superficial bullae noted to the anterior aspect of the proximal left leg and central plantar aspect of the left rearfoot, mild weeping appreciated circumferentially to midleg. DTI to left heel appreciated RLE: Circular ulceration measuring approximately 5x4.5 extending into subcutaneous tissue noted to R heel with fibrous base, + malodor, + serous drainage, no purulence appreciated. No tunneling or tracking appreciated. No probe to bone. - Neurological Exam Neurological Exam: Alert, Awake Assessment and Plan - Assessment and Plan (Free Text) Assessment: 72F patient, seen and evaluated at bedside for bilateral lower extremity erythema, edema and ulcerations. Plan: Patient seen and evaluated, discussed patient plan with Dr. Smith Continue with IV abx R foot x-rays; moderate soft tissue swelling, no OM or fracture, diffuse osteopenia R wound culture: beta hemolytic group strep B Local wound care: R dressed with betadine, ABD, DSD, L dressed with xeroform, ABD, DSD WENDI/PVR ordered; results pending. blisters incised and drained using a sterile #15 blade and sterile suture removal kit. tolerated; without any complications Multipodus boots ordered, to be worn at all times while in bed Will continue to follow
[2018-09-24] MEDS: Ciprofloxacin 200mg/100ml D5W 100 ML IVPB SCH ×2 (10:11→22:52)
[2018-09-24] MEDS: Pantoprazole 40 mg EC Tab PO SCH (10:13)
--- NOTE | 2018-09-24 11:09 | CP.PCM.PN ---
Subjective - Date & Time of Evaluation Date of Evaluation: 09/23/18 Time of Evaluation: 15:40 - Subjective Subjective: Seen and examined at the bed side. No new complaint. Objective - Vital Signs/Intake and Output Vital Signs (last 24 hours): Temp Pulse Resp BP Pulse Ox 98.5 F 73 20 135/75 99 09/24/18 08:53 09/24/18 10:12 09/24/18 08:53 09/24/18 10:12 09/24/18 08:53 - Medications Medications: Current Medications Albuterol/Ipratropium (Duoneb 3 Mg/0.5 Mg (3 Ml) Ud) 3 ml INH RQ6 PRN PRN Reason: Shortness of Breath Last Admin: 09/23/18 09:23 Dose: 3 ml Alprazolam (Xanax) 0.25 mg PO Q12 PRN PRN Reason: Anxiety Stop: 09/28/18 21:10 Last Admin: 09/24/18 05:56 Dose: 0.25 mg Aspirin (Ecotrin) 81 mg PO DAILY [facility] Last Admin: 09/24/18 10:11 Dose: 81 mg Atorvastatin Calcium (Lipitor) 80 mg PO HS [facility] Last Admin: 09/23/18 21:53 Dose: 80 mg Clopidogrel Bisulfate (Plavix) 75 mg PO DAILY [facility] Last Admin: 09/24/18 10:12 Dose: 75 mg Diphenhydramine HCl (Benadryl) 25 mg PO Q6 PRN PRN Reason: Itching / Pruritus Last Admin: 09/24/18 06:30 Dose: 25 mg Furosemide (Lasix) 40 mg PO DAILY [facility] Last Admin: 09/24/18 10:12 Dose: 40 mg Gabapentin (Neurontin) 100 mg PO DAILY [facility] Last Admin: 09/24/18 10:13 Dose: 100 mg Guaifenesin/Dextromethorphan (Robitussin Dm) 10 ml PO Q6 PRN PRN Reason: Cough Last Admin: 09/24/18 00:58 Dose: 10 ml Heparin Sodium (Porcine) (Heparin) 5,000 units SC Q8 [facility]; Protocol Last Admin: 09/24/18 10:10 Dose: 5,000 units Ciprofloxacin (Cipro 200mg/100ml D5w) 100 mls @ 100 mls/hr IVPB Q12 [facility]; Protocol Last Admin: 09/24/18 10:11 Dose: 100 mls/hr Vancomycin HCl 1 gm/ Sodium (Chloride) 250 mls @ 166.667 mls/hr IVPB Q12 [facility]; Protocol Last Admin: 09/23/18 21:54 Dose: 166.667 mls/hr Insulin Human Lispro (Humalog) 0 units SC ACHS [facility]; Protocol Last Admin: 09/24/18 08:30 Dose: 3 u Isosorbide Mononitrate (Imdur Er) 30 mg PO DAILY [facility] Last Admin: 09/24/18 10:12 Dose: 30 mg Metoprolol Tartrate (Lopressor) 12.5 mg PO Q12 [facility] Last Admin: 09/24/18 10:12 Dose: 12.5 mg Montelukast Sodium (Singulair) 10 mg PO HS [facility] Pantoprazole Sodium (Protonix Ec Tab) 40 mg PO DAILY [facility] Last Admin: 09/24/18 10:13 Dose: 40 mg Spironolactone (Aldactone) 25 mg PO DAILY [facility] Last Admin: 09/24/18 10:11 Dose: 25 mg - Labs Labs: 09/24/18 05:45 09/24/18 05:45 Assessment and Plan (1) Type 1 diabetes mellitus with diabetic foot infection Status: Acute (2) Diabetic foot ulcer Assessment & Plan: Left Leg Ulcers Status: Acute (3) DVT prophylaxis Status: Acute (4) Fall Status: Acute (5) PVD (peripheral vascular disease) Status: Acute - Assessment and Plan (Free Text) Plan: IVF IV Vanconycin and Ciprofloxacin Wound Care daily by the management information systems director MRI of the Left Leg and B/L Foot ID on board Pain Medication PRN CBCD and CMP Wound culture- Group B Hemolytic Sterp Blood Culture
[2018-09-24] MEDS ORDERED: Gadodiamide 287 MG/ML VIAL (15ML) IV ONE (16:50)
--- NOTE | 2018-09-24 17:58 | CP.PCM.PN ---
Subjective - Date & Time of Evaluation Date of Evaluation: 09/24/18 Time of Evaluation: 17:05 - Subjective Subjective: Seen and examined at the bed side. No new complaint. MRI of the foot and Left Leg Ulcer in progress to rule out Osteomyelitis. Denies fever or chills. Objective - Vital Signs/Intake and Output Vital Signs (last 24 hours): Temp Pulse Resp BP Pulse Ox 98.5 F 73 20 135/75 99 09/24/18 08:53 09/24/18 10:12 09/24/18 08:53 09/24/18 10:12 09/24/18 08:53 - Medications Medications: Current Medications Albuterol/Ipratropium (Duoneb 3 Mg/0.5 Mg (3 Ml) Ud) 3 ml INH RQ6 PRN PRN Reason: Shortness of Breath Last Admin: 09/23/18 09:23 Dose: 3 ml Alprazolam (Xanax) 0.25 mg PO Q12 PRN PRN Reason: Anxiety Stop: 09/28/18 21:10 Last Admin: 09/24/18 05:56 Dose: 0.25 mg Aspirin (Ecotrin) 81 mg PO DAILY [facility] Last Admin: 09/24/18 10:11 Dose: 81 mg Atorvastatin Calcium (Lipitor) 80 mg PO HS [facility] Last Admin: 09/23/18 21:53 Dose: 80 mg Clopidogrel Bisulfate (Plavix) 75 mg PO DAILY [facility] [place] Last Admin: 09/24/18 10:12 Dose: 75 mg Diphenhydramine HCl (Benadryl) 25 mg PO Q6 PRN PRN Reason: Itching / Pruritus Last Admin: 09/24/18 06:30 Dose: 25 mg Furosemide (Lasix) 40 mg PO DAILY [facility] [place] Last Admin: 09/24/18 10:12 Dose: 40 mg Gabapentin (Neurontin) 100 mg PO DAILY [facility] Last Admin: 09/24/18 10:13 Dose: 100 mg Guaifenesin/Dextromethorphan (Robitussin Dm) 10 ml PO Q6 PRN PRN Reason: Cough Last Admin: 09/24/18 00:58 Dose: 10 ml Heparin Sodium (Porcine) (Heparin) 5,000 units SC Q8 [facility] [place]; Protocol Last Admin: 09/24/18 10:10 Dose: 5,000 units Ciprofloxacin (Cipro 200mg/100ml D5w) 100 mls @ 100 mls/hr IVPB Q12 [facility]; Protocol Last Admin: 09/24/18 10:11 Dose: 100 mls/hr Vancomycin HCl 1 gm/ Sodium (Chloride) 250 mls @ 166.667 mls/hr IVPB Q12 [facility]; Protocol Last Admin: 09/24/18 11:55 Dose: 166.667 mls/hr Insulin Human Lispro (Humalog) 0 units SC ACHS [facility]; Protocol Last Admin: 09/24/18 13:44 Dose: 2 u Isosorbide Mononitrate (Imdur Er) 30 mg PO DAILY [facility] Last Admin: 09/24/18 10:12 Dose: 30 mg Metoprolol Tartrate (Lopressor) 12.5 mg PO Q12 [facility] Last Admin: 09/24/18 10:12 Dose: 12.5 mg Montelukast Sodium (Singulair) 10 mg PO HS [facility] Pantoprazole Sodium (Protonix Ec Tab) 40 mg PO DAILY [facility] [place] Last Admin: 09/24/18 10:13 Dose: 40 mg Spironolactone (Aldactone) 25 mg PO DAILY [facility] [place] Last Admin: 09/24/18 10:11 Dose: 25 mg - Labs Labs: 09/24/18 05:45 09/24/18 05:45 Assessment and Plan (1) 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 - Assessment and Plan (Free Text) Plan: Continue Current Care CBC with diff CMP
[2018-09-25] MEDS: Insulin Lispro (humaLOG) 100 Units/ml Inj SC SCH ×4 (07:30→22:45)
--- NOTE | 2018-09-25 09:01 | CP.PCM.PN ---
Subjective - Date & Time of Evaluation Date of Evaluation: 09/25/18 Time of Evaluation: 09:00 - Subjective Subjective: Podiatry progress Note: Dr. Smith: 72F patient,seen and evaluated at bedside for bilateral lower extremity erythema, edema and ulcerations. Patient is resting comfortably and in NAD. She rates moderate pain to her B/L lower extremities. She denies any acute events overnight. Denies N/V/F/SOB/CP/Chills. Objective - Vital Signs/Intake and Output Vital Signs (last 24 hours): Temp Pulse Resp BP Pulse Ox 97.4 F L 75 18 145/84 100 09/25/18 00:02 09/25/18 00:02 09/25/18 00:02 09/25/18 00:02 09/25/18 00:02 - Medications Medications: Current Medications Albuterol/Ipratropium (Duoneb 3 Mg/0.5 Mg (3 Ml) Ud) 3 ml INH RQ6 PRN PRN Reason: Shortness of Breath Last Admin: 09/23/18 09:23 Dose: 3 ml Alprazolam (Xanax) 0.25 mg PO Q12 PRN PRN Reason: Anxiety Stop: 09/28/18 21:10 Last Admin: 09/24/18 05:56 Dose: 0.25 mg Aspirin (Ecotrin) 81 mg PO DAILY [facility] Last Admin: 09/24/18 10:11 Dose: 81 mg Atorvastatin Calcium (Lipitor) 80 mg PO HS [facility] Last Admin: 09/24/18 22:54 Dose: 80 mg Clopidogrel Bisulfate (Plavix) 75 mg PO DAILY [facility] Last Admin: 09/24/18 10:12 Dose: 75 mg Diphenhydramine HCl (Benadryl) 25 mg PO Q6 PRN PRN Reason: Itching / Pruritus Last Admin: 09/24/18 06:30 Dose: 25 mg Furosemide (Lasix) 40 mg PO DAILY [facility] Last Admin: 09/24/18 10:12 Dose: 40 mg Gabapentin (Neurontin) 100 mg PO DAILY [facility] Last Admin: 09/24/18 10:13 Dose: 100 mg Guaifenesin/Dextromethorphan (Robitussin Dm) 10 ml PO Q6 PRN PRN Reason: Cough Last Admin: 09/24/18 00:58 Dose: 10 ml Heparin Sodium (Porcine) (Heparin) 5,000 units SC Q8 [facility]; Protocol Last Admin: 09/25/18 02:00 Dose: 5,000 units Ciprofloxacin (Cipro 200mg/100ml D5w) 100 mls @ 100 mls/hr IVPB Q12 [facility]; Protocol Last Admin: 09/24/18 22:52 Dose: 100 mls/hr Vancomycin HCl 1 gm/ Sodium (Chloride) 250 mls @ 166.667 mls/hr IVPB Q12 [facility]; Protocol Last Admin: 09/24/18 22:53 Dose: 166.667 mls/hr Insulin Human Lispro (Humalog) 0 units SC ACHS [facility]; Protocol Last Admin: 09/24/18 22:45 Dose: Not Given Isosorbide Mononitrate (Imdur Er) 30 mg PO DAILY [facility] Last Admin: 09/24/18 10:12 Dose: 30 mg Metoprolol Tartrate (Lopressor) 12.5 mg PO Q12 [facility] Last Admin: 09/24/18 22:55 Dose: 12.5 mg Montelukast Sodium (Singulair) 10 mg PO HS [facility] Last Admin: 09/24/18 22:56 Dose: 10 mg Pantoprazole Sodium (Protonix Ec Tab) 40 mg PO DAILY [facility] Last Admin: 09/24/18 10:13 Dose: 40 mg Spironolactone (Aldactone) 25 mg PO DAILY [facility] Last Admin: 09/24/18 10:11 Dose: 25 mg - Labs Labs: 09/24/18 05:45 09/24/18 05:45 - Constitutional Appears: Well, Non-toxic, No Acute Distress - Head Exam Head Exam: ATRAUMATIC - Extremities Exam Additional comments: dressing clean, dry intact from previous note: B/L lower extremtiy focused exam: Vasc: DP/PT pulses are non-palpable bilaterally, Cap refill time < 3 sec to all digits, TG warm to warm, +2 edema noted extending from foot proximally to the mid leg level bilaterally Ortho: Pain on palpation to all wounds; pain upon ROM bilateral LE. No pain on palpation of the calf b/l Neuro: Gross sensation intact, protective sensation absent Derm: LLE: Superficial ulceration noted to posterior aspect of inferior 1/3 of calf, serous drainage present, no malodor, no purulence, no tunneling no tracking. superficial bullae noted to the anterior aspect of the proximal left leg and central plantar aspect of the left rearfoot, mild weeping appreciated circumf erentially to midleg. DTI to left heel appreciated RLE: Circular ulceration measuring approximately 5x4.5 extending into subcutaneous tissue noted to R heel with fibrous base, + malodor, + serous huong inage, no purulence appreciated. No tunneling or tracking appreciated. No probe to bone. - Neurological Exam Neurological Exam: Alert, Awake Assessment and Plan - Assessment and Plan (Free Text) Assessment: 72F patient, seen and evaluated at bedside for bilateral lower extremity erythema, edema and ulcerations. Plan: Patient seen and evaluated, discussed patient plan with Dr. Smith Continue with IV abx R foot x-rays; moderate soft tissue swelling, no OM or fracture, diffuse osteopenia R wound culture: beta hemolytic group strep B Local wound care: R dressed with betadine, ABD, DSD, L dressed with xeroform, ABD, DSD WENDI/PVR ordered; results pending. Multipodus boots ordered, to be worn at all times while in bed Will continue to follow
[2018-09-25] MEDS: Pantoprazole 40 mg EC Tab PO SCH (10:19)
[2018-09-25] MEDS: Ciprofloxacin 200mg/100ml D5W 100 ML IVPB SCH ×2 (10:19→22:00)
[2018-09-25] MEDS: guaiFENesin DM 200 mg-20 mg/10 ml UD PO PRN (12:32)
[2018-09-25] MEDS: Albuterol-Ipratrop 3 mg / 0.5 (3 ml) UD INH PRN (23:44)
[2018-09-26 06:50] LABS: HEMOGLOBIN 8.9 g/dL (12.0-16.0); MEAN CELL VOLUME 92.6 fl (81.0-99.0); MEAN CORPUSCULAR HEMOGLOBIN 29.5 pg (27.0-31.0); MEAN CORPUSCULAR HGB CONC 31.9 g/dL (33.0-37.0); RED CELL DISTRIBUTION WIDTH 14.3 % (11.5-14.5)
[2018-09-26 07:10] LABS: BLOOD UREA NITROGEN 15 mg/dl (7-17); CALCIUM 8.7 mg/dL (8.4-10.2); GFR NON-AFRICAN AMERICAN > 60
[2018-09-26] MEDS: Insulin Lispro (humaLOG) 100 Units/ml Inj SC SCH ×5 (08:37→22:00)
[2018-09-26] MEDS: Ciprofloxacin 200mg/100ml D5W 100 ML IVPB SCH (10:18)
[2018-09-26] MEDS: Pantoprazole 40 mg EC Tab PO SCH (10:21)
--- NOTE | 2018-09-26 12:01 | MRI ---
MRI left foot HISTORY: Infection. Evaluate for osteomyelitis. Comparison: X-ray dated 03/30/2018 Technique: Multi-echo multiplanar sequences were performed through the left foot without the use of intravenous contrast. Findings: Markedly limited study given extensive motion artifact as well as large field of view which markedly limits evaluation. Reticulation and edema within the subcutaneous soft tissues most pronounced at the level of the dorsal aspect of the mid and forefoot suggestive for a cellulitis. Diffuse increased signal within the visualized musculature also suggestive for a diffuse myositis Prominent scattered signal abnormalities seen throughout the foot including the metatarsal bases and throughout the tarsal bones bones and hindfoot as well as at the level of the distal tibia and fibula with scattered areas of decreased T1 signal as well as increased STIR signal. This may be the sequelae of acute infectious changes such as an acute osteomyelitis. Additional considerations may the sequelae of acute inflammatory changes and or neuropathic changes and or additional etiology. Clinical correlation. More pronounced decreased T1 signal with increased STIR signal noted particularly at the level of the navicular bone for which superimposed subchondral collapse and or fracturing cannot be excluded. In addition, superimposed signal abnormality in the anterior calcaneus and cuneiform bones and cuboid bone for which underlying superimposed acute osteomyelitis versus subchondral osseous injury versus Charcot arthropathy cannot be excluded. Deformity of the talus bone at the talar dome with a suggestion of subchondral flattening at the articular surface. This may be the sequelae of infection versus AVN versus subchondral fracturing versus additional etiology. Mild fluid is seen around the flexor hallucis longus tendon sheath suggestive for a mild tenosynovitis. Fraying and irregularity seen at the level of the Lisfranc ligament which may represent some chronic tearing. Clinical correlation. Plantar calcaneal spurring. Some fraying with increased signal seen within the deltoid ligament suggestive for a sprain and or partial tear. Impression: Markedly limited study given extensive motion artifact as well as large field of view which markedly limits evaluation. 1. Reticulation and edema within the subcutaneous soft tissues most pronounced at the level of the dorsal aspect of the mid and forefoot suggestive for a cellulitis. 2. Diffuse increased signal within the visualized musculature also suggestive for a diffuse myositis 3. Prominent scattered signal abnormalities seen throughout the foot including the metatarsal bases and throughout the tarsal bones and hindfoot as well as at the level of the distal tibia and fibula with scattered areas of decreased T1 signal as well as increased STIR signal. This may be the sequelae of acute infectious changes such as an acute osteomyelitis. Additional considerations may the sequelae of acute inflammatory changes and or neuropathic changes and or additional etiology. Clinical correlation. 4. More pronounced decreased T1 signal with increased STIR signal noted particularly at the level of the navicular bone for which superimposed subchondral collapse and or fracturing cannot be excluded. 5. In addition, superimposed signal abnormality in the anterior calcaneus and cuneiform bones and cuboid bone for which underlying superimposed acute osteomyelitis versus subchondral osseous injury versus Charcot arthropathy cannot be excluded. 6. Deformity of the talus bone at the talar dome with a suggestion of subchondral flattening at the articular surface. This may be the sequelae of infection versus AVN versus subchondral fracturing versus additional etiology. 7. Mild fluid is seen around the flexor hallucis longus tendon sheath suggestive for a mild tenosynovitis. 8. Fraying and irregularity seen at the level of the Lisfranc ligament which may represent some chronic tearing. Clinical correlation. 9. Plantar calcaneal spurring. 10. Some fraying with increased signal seen within the deltoid ligament suggestive for a sprain and or partial tear. A preliminary report was generated at 11:56 p.m. on 09/24/[address] Efrain Tolliver from [facility].
--- NOTE | 2018-09-26 12:12 | MRI ---
MRI right foot HISTORY: Infection. Evaluate for osteomyelitis. Comparison: None available. Technique: Multi-echo multiplanar sequences were performed through the right foot without the use of intravenous contrast. Findings: Markedly limited study given prominent motion artifact as well as suboptimal field of view. Prominent soft tissue ulceration and/or defect within the volar soft tissues of the mid to hindfoot. Extensive collapse and subchondral osseous abnormality involving the talus with decreased T1 signal and increased STIR signal concerning for possible sequelae of post infectious changes with superimposed osteonecrosis and subchondral collapse / fracture. Moderate ankle joint effusion at that level. Clinical correlation recommended to exclude underlying septic joint. Correlation with joint aspiration and or joint biopsy may be helpful if clinically indicated. Additional prominent signal abnormality noted at the level the mid to posterior calcaneus also suggestive for possible superimposed subchondral osteonecrosis and or subchondral osseous injury and or additional etiology. Clinical correlation. Extensive signal abnormality seen throughout the foot including the metatarsal bases and 5th metatarsal bone, throughout the tarsal bones, hindfoot, distal fibula, and distal tibia. These changes may be the sequelae of acute infectious changes such as acute osteomyelitis. Additional considerations may be the sequelae of acute inflammatory changes versus neuropathic change versus additional etiology. Clinical correlation. Extensive reticulation and edema within the circumferential subcutaneous soft tissues consistent with a diffuse cellulitis. Chronic partial tearing of the anterior and posterior tibiofibular and talofibular ligaments. Fraying and irregularity at the level of the Lisfranc ligament which may represent chronic tearing. Clinical correlation. Fraying with increased signal at the level of the deltoid ligament suggestive for chronic partial tearing. Thickening of the plantar fascia suggestive for a plantar fasciitis. Impression: Markedly limited study given prominent motion artifact as well as suboptimal field of view. 1. Prominent soft tissue ulceration and/or defect within the volar soft tissues of the mid to hindfoot. 2. Extensive collapse and subchondral osseous abnormality involving the talus with decreased T1 signal and increased STIR signal concerning for possible sequelae of post infectious changes with superimposed osteonecrosis and subchondral collapse / fracture. Moderate ankle joint effusion at that level. Clinical correlation recommended to exclude underlying septic joint. Correlation with joint aspiration and or joint biopsy may be helpful if clinically indicated. Additional prominent signal abnormality noted at the level the mid to posterior calcaneus also suggestive for possible superimposed subchondral osteonecrosis and or subchondral osseous injury and or additional etiology. Clinical correlation. 3. Extensive signal abnormality seen throughout the foot including the metatarsal bases and 5th metatarsal bone, throughout the tarsal bones, hindfoot, distal fibula, and distal tibia. These changes may be the sequelae of acute infectious changes such as acute osteomyelitis. Additional considerations may be the sequelae of acute inflammatory changes versus neuropathic change versus additional etiology. Clinical correlation. 4. Extensive reticulation and edema within the circumferential subcutaneous soft tissues consistent with a diffuse cellulitis. 5. Chronic partial tearing of the anterior and posterior tibiofibular and talofibular ligaments. 6. Fraying and irregularity at the level of the Lisfranc ligament which may represent chronic tearing. Clinical correlation. 7. Fraying with increased signal at the level of the deltoid ligament suggestive for chronic partial tearing. 8. Thickening of the plantar fascia suggestive for a plantar fasciitis. A preliminary report was generated at 11:54 p.m. on 09/24/[address] Efrain Tolliver from [facility].
--- NOTE | 2018-09-26 14:36 | RAD ---
Date of service: 09/26/2018 HISTORY: PICC Insertion COMPARISON: CTA chest from 03/30/2018 FINDINGS: The left PICC line terminates in the right subclavian vein. LUNGS: The lungs are well inflated. There is moderate pulmonary venous congestion. PLEURA: Suspect small left pleural effusion. No large right pleural effusion or pneumothorax. CARDIOVASCULAR: Mild cardiomegaly and prominent central vasculature. Atherosclerotic aortic arch calcifications are present. OSSEOUS STRUCTURES: Within normal limits for the patient's age. VISUALIZED UPPER ABDOMEN: Normal. OTHER FINDINGS: None. IMPRESSION: Left PICC line terminates in the right subclavian vein. Repositioning is recommended. Mild congestive heart failure.
--- NOTE | 2018-09-26 15:17 | CP.PCM.PN ---
Subjective - Date & Time of Evaluation Date of Evaluation: 09/26/18 Time of Evaluation: 15:13 - Subjective Subjective: Podiatry progress Note: Dr. Smith: 72F patient,seen and evaluated at bedside for bilateral lower extremity erythema, edema and ulcerations. Patient is resting comfortably and in NAD. She rates moderate pain to her B/L lower extremities. She denies any acute events overnight. Denies N/V/F/SOB/CP/Chills. Objective - Vital Signs/Intake and Output Vital Signs (last 24 hours): Temp Pulse Resp BP Pulse Ox 97.9 F 65 20 111/65 97 09/26/18 08:07 09/26/18 10:19 09/26/18 08:07 09/26/18 10:24 09/26/18 08:07 - Medications Medications: Current Medications Albuterol/Ipratropium (Duoneb 3 Mg/0.5 Mg (3 Ml) Ud) 3 ml INH RQ6 PRN PRN Reason: Shortness of Breath Last Admin: 09/25/18 23:44 Dose: 3 ml Alprazolam (Xanax) 0.25 mg PO Q12 PRN PRN Reason: Anxiety Stop: 09/28/18 21:10 Last Admin: 09/24/18 05:56 Dose: 0.25 mg Aspirin (Ecotrin) 81 mg PO DAILY [facility] Last Admin: 09/26/18 10:20 Dose: 81 mg Atorvastatin Calcium (Lipitor) 80 mg PO HS [facility] Last Admin: 09/25/18 22:02 Dose: 80 mg Ciprofloxacin (Cipro) 250 mg PO Q12 [facility] Stop: 09/29/18 10:19 Clopidogrel Bisulfate (Plavix) 75 mg PO DAILY [facility] Last Admin: 09/26/18 10:23 Dose: 75 mg Diphenhydramine HCl (Benadryl) 25 mg PO Q6 PRN PRN Reason: Itching / Pruritus Last Admin: 09/24/18 06:30 Dose: 25 mg Furosemide (Lasix) 40 mg PO DAILY [facility] Last Admin: 09/26/18 10:24 Dose: 40 mg Gabapentin (Neurontin) 100 mg PO DAILY [facility] Last Admin: 09/26/18 10:23 Dose: 100 mg Guaifenesin/Dextromethorphan (Robitussin Dm) 10 ml PO Q6 PRN PRN Reason: Cough Last Admin: 09/24/18 00:58 Dose: 10 ml Heparin Sodium (Porcine) (Heparin) 5,000 units SC Q8 [facility]; Protocol Last Admin: 09/26/18 10:26 Dose: 5,000 units Vancomycin HCl 1 gm/ Sodium (Chloride) 250 mls @ 166.667 mls/hr IVPB Q12 [facility]; Protocol Last Admin: 09/25/18 12:12 Dose: 166.667 mls/hr Insulin Human Lispro (Humalog) 0 units SC ACHS [facility]; Protocol Last Admin: 09/26/18 10:25 Dose: 2 u Isosorbide Mononitrate (Imdur Er) 30 mg PO DAILY [facility] Last Admin: 09/26/18 10:22 Dose: 30 mg Metoprolol Tartrate (Lopressor) 12.5 mg PO Q12 [facility] Last Admin: 09/26/18 10:19 Dose: 12.5 mg Montelukast Sodium (Singulair) 10 mg PO HS [facility] Last Admin: 09/25/18 22:02 Dose: 10 mg Pantoprazole Sodium (Protonix Ec Tab) 40 mg PO DAILY [facility] Last Admin: 09/26/18 10:21 Dose: 40 mg Spironolactone (Aldactone) 25 mg PO DAILY [facility] Last Admin: 09/26/18 10:19 Dose: 25 mg - Labs Labs: 09/26/18 06:25 09/26/18 06:25 - Constitutional Appears: Well, Non-toxic, No Acute Distress - Head Exam Head Exam: ATRAUMATIC - Extremities Exam Additional comments: dressing clean, dry intact B/L lower extremtiy focused exam: Vasc: DP/PT pulses are non-palpable bilaterally, Cap refill time < 3 sec to all digits, TG warm to warm, +2 edema noted extending from foot proximally to the mid leg level bilaterally Ortho: Pain on palpation to all wounds; pain upon ROM bilateral LE. No pain on p alpation of the calf b/l Neuro: Gross sensation intact, protective sensation absent Derm: LLE: Superficial ulceration noted to posterior aspect of inferior 1/3 of calf, serous drainage present, no malodor, no purulence, no tunneling no tracking. superficial bullae noted to the anterior aspect of the proximal left leg and central plantar aspect of the left rearfoot, mild weeping appreciated cir cumferentially to midleg. DTI to left heel appreciated RLE: Circular ulceration measuring approximately 5x4.5 extending into subcutaneous tissue noted to R heel with fibrous base, minimal malodor, + serous drainage, no purulence appreciated. No tunneling or tracking appreciated. No probe to bone. - Psychiatric Exam Psychiatric exam: Normal Affect - Skin Skin Exam: Normal Color Assessment and Plan - Assessment and Plan (Free Text) Assessment: 72F patient, seen and evaluated at bedside for bilateral lower extremity erythema, edema and ulcerations. Plan: Patient seen and evaluated, discussed patient plan with Dr. Smith Continue with IV abx R foot x-rays; moderate soft tissue swelling, no OM or fracture, diffuse osteop enia R wound culture: beta hemolytic group strep B Local wound care: R dressed with betadine, ABD, DSD, L dressed with xeroform, ABD, DSD MRI: possible OM of the metatarsals, tarsal bones, hindfoot bones, distal tibia and fibular WENDI/PVR ordered; [id number] final read pending Vascular consult; Per Dr. Jimenez CT Angio, vasc recs appreciated. Infectious disease consult ordered; recs appreciated PICC line order placed by PCP Multipodus boots ordered, to be worn at all times while in bed Will continue to follow
[2018-09-26] MEDS ORDERED: Lidocaine 2% Inj (20ml) IV ONE (16:51)
--- NOTE | 2018-09-26 20:32 | CP.PCM.PN ---
Subjective - Date & Time of Evaluation Date of Evaluation: 09/25/18 Objective - Vital Signs/Intake and Output Vital Signs (last 24 hours): Temp Pulse Resp BP Pulse Ox 97.7 F 73 20 121/70 100 09/26/18 17:00 09/26/18 17:00 09/26/18 17:00 09/26/18 17:00 09/26/18 17:00 - Medications Medications: Current Medications Albuterol/Ipratropium (Duoneb 3 Mg/0.5 Mg (3 Ml) Ud) 3 ml INH RQ6 PRN PRN Reason: Shortness of Breath Last Admin: 09/25/18 23:44 Dose: 3 ml Alprazolam (Xanax) 0.25 mg PO Q12 PRN PRN Reason: Anxiety Stop: 09/28/18 21:10 Last Admin: 09/24/18 05:56 Dose: 0.25 mg Aspirin (Ecotrin) 81 mg PO DAILY [facility] Last Admin: 09/26/18 10:20 Dose: 81 mg Atorvastatin Calcium (Lipitor) 80 mg PO HS [facility] Last Admin: 09/25/18 22:02 Dose: 80 mg Ciprofloxacin (Cipro) 250 mg PO Q12 [facility] Stop: 09/29/18 10:19 Clopidogrel Bisulfate (Plavix) 75 mg PO DAILY [facility] Last Admin: 09/26/18 10:23 Dose: 75 mg Diphenhydramine HCl (Benadryl) 25 mg PO Q6 PRN PRN Reason: Itching / Pruritus Last Admin: 09/24/18 06:30 Dose: 25 mg Furosemide (Lasix) 40 mg PO DAILY [facility] Last Admin: 09/26/18 10:24 Dose: 40 mg Gabapentin (Neurontin) 100 mg PO DAILY [facility] Last Admin: 09/26/18 10:23 Dose: 100 mg Guaifenesin/Dextromethorphan (Robitussin Dm) 10 ml PO Q6 PRN PRN Reason: Cough Last Admin: 09/24/18 00:58 Dose: 10 ml Heparin Sodium (Porcine) (Heparin) 5,000 units SC Q8 [facility]; Protocol Last Admin: 09/26/18 17:40 Dose: 5,000 units Vancomycin HCl 1 gm/ Sodium (Chloride) 250 mls @ 166.667 mls/hr IVPB Q12 [facility]; Protocol Last Admin: 09/25/18 12:12 Dose: 166.667 mls/hr Insulin Human Lispro (Humalog) 0 units SC [facility] REPLACED BY [facility]; Protocol Last Admin: 09/26/18 17:35 Dose: 1 u Isosorbide Mononitrate (Imdur Er) 30 mg PO DAILY [facility] Last Admin: 09/26/18 10:22 Dose: 30 mg Metoprolol Tartrate (Lopressor) 12.5 mg PO Q12 [facility] Last Admin: 09/26/18 10:19 Dose: 12.5 mg Montelukast Sodium (Singulair) 10 mg PO HS [facility] Last Admin: 09/25/18 22:02 Dose: 10 mg Pantoprazole Sodium (Protonix Ec Tab) 40 mg PO DAILY [facility] Last Admin: 09/26/18 10:21 Dose: 40 mg Spironolactone (Aldactone) 25 mg PO DAILY [facility] Last Admin: 09/26/18 10:19 Dose: 25 mg - Labs Labs: 09/26/18 06:25 09/26/18 06:25 Assessment and Plan (1) 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
--- NOTE | 2018-09-26 20:32 | CP.PCM.PN ---
Subjective - Date & Time of Evaluation Date of Evaluation: 09/26/18 Time of Evaluation: 19:45 - Subjective Subjective: No new complaint. S/P PICC Line. EWAitng ID for the Type and length of antibiotics. 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 Objective - Vital Signs/Intake and Output Vital Signs (last 24 hours): Temp Pulse Resp BP Pulse Ox 97.7 F 73 20 121/70 100 09/26/18 17:00 09/26/18 17:00 09/26/18 17:00 09/26/18 17:00 09/26/18 17:00 - Medications Medications: Current Medications Albuterol/Ipratropium (Duoneb 3 Mg/0.5 Mg (3 Ml) Ud) 3 ml INH RQ6 PRN PRN Reason: Shortness of Breath Last Admin: 09/25/18 23:44 Dose: 3 ml Alprazolam (Xanax) 0.25 mg PO Q12 PRN PRN Reason: Anxiety Stop: 09/28/18 21:10 Last Admin: 09/24/18 05:56 Dose: 0.25 mg Aspirin (Ecotrin) 81 mg PO DAILY [facility] Last Admin: 09/26/18 10:20 Dose: 81 mg Atorvastatin Calcium (Lipitor) 80 mg PO HS [facility] Last Admin: 09/25/18 22:02 Dose: 80 mg Ciprofloxacin (Cipro) 250 mg PO Q12 [facility] Stop: 09/29/18 10:19 Clopidogrel Bisulfate (Plavix) 75 mg PO DAILY [facility] Last Admin: 09/26/18 10:23 Dose: 75 mg Diphenhydramine HCl (Benadryl) 25 mg PO Q6 PRN PRN Reason: Itching / Pruritus Last Admin: 09/24/18 06:30 Dose: 25 mg Furosemide (Lasix) 40 mg PO DAILY [facility] Last Admin: 09/26/18 10:24 Dose: 40 mg Gabapentin (Neurontin) 100 mg PO DAILY [facility] Last Admin: 09/26/18 10:23 Dose: 100 mg Guaifenesin/Dextromethorphan (Robitussin Dm) 10 ml PO Q6 PRN PRN Reason: Cough Last Admin: 09/24/18 00:58 Dose: 10 ml Heparin Sodium (Porcine) (Heparin) 5,000 units SC Q8 [facility]; Protocol Last Admin: 09/26/18 17:40 Dose: 5,000 units Vancomycin HCl 1 gm/ Sodium (Chloride) 250 mls @ 166.667 mls/hr IVPB Q12 [facility]; Protocol Last Admin: 09/25/18 12:12 Dose: 166.667 mls/hr Insulin Human Lispro (Humalog) 0 units SC ACHS [facility]; Protocol Last Admin: 09/26/18 17:35 Dose: 1 u Isosorbide Mononitrate (Imdur Er) 30 mg PO DAILY [facility] Last Admin: 09/26/18 10:22 Dose: 30 mg Metoprolol Tartrate (Lopressor) 12.5 mg PO Q12 [facility] Last Admin: 09/26/18 10:19 Dose: 12.5 mg Montelukast Sodium (Singulair) 10 mg PO HS [facility] Last Admin: 09/25/18 22:02 Dose: 10 mg Pantoprazole Sodium (Protonix Ec Tab) 40 mg PO DAILY [facility] Last Admin: 09/26/18 10:21 Dose: 40 mg Spironolactone (Aldactone) 25 mg PO DAILY [facility] Last Admin: 09/26/18 10:19 Dose: 25 mg - Labs Labs: 09/26/18 06:25 09/26/18 06:25 Assessment and Plan (1) 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 - Assessment and Plan (Free Text) Plan: Continue Current care ID Consulted Systems Project Manager Dressing the Wound.
[2018-09-27] MEDS: Insulin Lispro (humaLOG) 100 Units/ml Inj SC SCH ×4 (07:55→22:00)
[2018-09-27] MEDS: Pantoprazole 40 mg EC Tab PO SCH (09:28)
[2018-09-27] MEDS ORDERED: Lidocaine 1% Inj (20ml) ONE (13:12)
--- NOTE | 2018-09-27 13:26 | PCM.SURG1 ---
Surgeon's Initial Post Op Note - Surgeon's Notes Surgeon: Yosef Babin MD Telecommunications Consultant: NONE Type of Anesthesia: Local Pre-Operative Diagnosis: Poor venous access Operative Findings: US showed a patent right basilic vein Post-Operative Diagnosis: Poor venous access Operation Performed: Single lumen picc right basilic vein, 39 cm. Specimen/Specimens Removed: None Estimated Blood Loss: EBL {In ML}: 2 Blood Products Given: N/A Drains Used: No Drains Post-Op Condition: Fair Date of Surgery/Procedure: 09/27/18 Time of Surgery/Procedure: 13:25
--- NOTE | 2018-09-27 13:50 | CP.PCM.PN ---
Subjective - Date & Time of Evaluation Date of Evaluation: 09/27/18 Time of Evaluation: 13:49 - Subjective Subjective: Podiatry progress Note: Dr. Smith: 72F patient,seen and evaluated at bedside for bilateral lower extremity erythema, edema and ulcerations. Patient is resting comfortably and in NAD. She rates moderate pain to her B/L lower extremities. She denies any acute events overnight. Denies N/V/F/SOB/CP/Chills. Objective - Vital Signs/Intake and Output Vital Signs (last 24 hours): Temp Pulse Resp BP Pulse Ox 98.1 F 78 18 130/74 99 09/27/18 13:14 09/27/18 13:14 09/27/18 13:14 09/27/18 13:14 09/27/18 08:14 - Medications Medications: Current Medications Albuterol/Ipratropium (Duoneb 3 Mg/0.5 Mg (3 Ml) Ud) 3 ml INH RQ6 PRN PRN Reason: Shortness of Breath Last Admin: 09/25/18 23:44 Dose: 3 ml Alprazolam (Xanax) 0.25 mg PO Q12 PRN PRN Reason: Anxiety Stop: 09/28/18 21:10 Last Admin: 09/24/18 05:56 Dose: 0.25 mg Aspirin (Ecotrin) 81 mg PO DAILY [facility] Last Admin: 09/27/18 09:27 Dose: 81 mg Atorvastatin Calcium (Lipitor) 80 mg PO HS [facility] Last Admin: 09/26/18 22:24 Dose: 80 mg Ciprofloxacin (Cipro) 250 mg PO Q12 [facility] Stop: 09/29/18 10:19 Last Admin: 09/27/18 09:29 Dose: 250 mg Clopidogrel Bisulfate (Plavix) 75 mg PO DAILY [facility] Last Admin: 09/27/18 09:29 Dose: 75 mg Diphenhydramine HCl (Benadryl) 25 mg PO Q6 PRN PRN Reason: Itching / Pruritus Last Admin: 09/26/18 22:27 Dose: 25 mg Furosemide (Lasix) 40 mg PO DAILY [facility] Last Admin: 09/27/18 09:27 Dose: 40 mg Gabapentin (Neurontin) 100 mg PO DAILY [facility] Last Admin: 09/27/18 09:29 Dose: 100 mg Guaifenesin/Dextromethorphan (Robitussin Dm) 10 ml PO Q6 PRN PRN Reason: Cough Last Admin: 09/24/18 00:58 Dose: 10 ml Heparin Sodium (Porcine) (Heparin) 5,000 units SC Q8 [facility]; Protocol Last Admin: 09/27/18 09:28 Dose: 5,000 units Vancomycin HCl 1 gm/ Sodium (Chloride) 250 mls @ 166.667 mls/hr IVPB Q12 [facility]; Protocol Last Admin: 09/25/18 12:12 Dose: 166.667 mls/hr Insulin Human Lispro (Humalog) 0 units SC ACHS [facility]; Protocol Last Admin: 09/27/18 07:55 Dose: 2 u Isosorbide Mononitrate (Imdur Er) 30 mg PO DAILY [facility] Last Admin: 09/27/18 09:29 Dose: 30 mg Metoprolol Tartrate (Lopressor) 12.5 mg PO Q12 [facility] Last Admin: 09/27/18 09:28 Dose: 12.5 mg Montelukast Sodium (Singulair) 10 mg PO HS [facility] Last Admin: 09/26/18 22:24 Dose: 10 mg Pantoprazole Sodium (Protonix Ec Tab) 40 mg PO DAILY [facility] Last Admin: 09/27/18 09:28 Dose: 40 mg Spironolactone (Aldactone) 25 mg PO DAILY [facility] Last Admin: 09/27/18 09:29 Dose: 25 mg - Labs Labs: 09/26/18 06:25 09/26/18 06:25 - Constitutional Appears: Well - Head Exam Head Exam: ATRAUMATIC - Extremities Exam Additional comments: dressing clean, dry intact from previous note: B/L lower extremtiy focused exam: Vasc: DP/PT pulses are non-palpable bilaterally, Cap refill time < 3 sec to all digits, TG warm to warm, +2 edema noted extending from foot proximally to the mid leg level bilaterally Ortho: Pain on palpation to all wounds; pain upon ROM bilateral LE. No pain on palpation of the calf b/l Neuro: Gross sensation intact, protective sensation absent Derm: LLE: Superficial ulceration noted to posterior aspect of inferior 1/3 of calf, serous drainage present, no malodor, no purulence, no tunneling no tracking. superficial bullae noted to the anterior aspect of the proximal left leg and central plantar aspect of the left rearfoot, mild weeping appreciated circumferentially to midleg. DTI to left heel appreciated RLE: Circular ulceration measuring approximately 5x4.5 extending into subcutaneous tissue noted to R heel with fibrous base, minimal malodor, + serous drainage, no purulence appreciated. No tunneling or tracking appreciated. No probe to bone Assessment and Plan - Assessment and Plan (Free Text) Assessment: 72F patient, seen and evaluated at bedside for bilateral lower extremity erythema, edema and ulcerations Plan: Patient seen and evaluated, discussed patient plan with Dr. Smith Continue with IV abx R foot x-rays; moderate soft tissue swelling, no OM or fracture, diffuse osteopenia R wound culture: beta hemolytic group strep B Local wound care: R dressed with betadine, ABD, DSD, L dressed with xeroform, ABD, DSD MRI: possible OM of the metatarsals, tarsal bones, hindfoot bones, distal tibia and fibular WENDI/PVR ordered; [id number] final read pending Vascular consult; Per Dr. Jimenez CT Angio, vasc recs appreciated. Infectious disease consult ordered; recs appreciated PICC line placed Multipodus boots ordered, to be worn at all times while in bed Will continue to follow
--- NOTE | 2018-09-27 14:00 | CP.PCM.CON ---
History of Present Illness - History of Present Illness History of Present Illness: 72 y/o female with a PMHx of Asthma CAD HTN DM II and foot ulcers admitted with worsening ulcers right foot with pain and drainage Has had ulcers present for many years Was going for wound care but unable to attend for insurance reasons Now admitted with cellulitis, myositis and possible OM right foot Review of Systems - Review of Systems All systems: reviewed and no additional remarkable complaints except - Constitutional Constitutional: As Per HPI - EENT Eyes: absent: As Per HPI, Blind Spots, Blurred Vision, Change in Vision, Decreased Night Vision, Diplopia, Discharge, Dry Eye, Exophthalmos, Floaters, Irritation, Itchy Eyes, Loss of Peripheral Vision, Pain, Photophobia, Requires Corrective Lenses, Sees Flashes, Spots in Vision, Tunnel Vision, Other Visual Disturbances, Loss of Vision, Other Ears: absent: As Per HPI, Decreased Hearing, Ear Discharge, Ear Pain, Tinnitus, Abnormal Hearing, Disequilibrium, Dizziness, Other Nose/Mouth/Throat: absent: As Per HPI, Epistaxis, Nasal Congestion, Nasal Discharge, Nasal Obstruction, Nasal Trauma, Nose Pain, Post Nasal Drip, Sinus Pain, Sinus Pressure, Bleeding Gums, Change in Voice, Dental Pain, Dry Mouth, Dysphagia, Halitosis, Hoarsness, Lip Swelling, Mouth Lesions, Mouth Pain, Odynophagia, Sore Throat, Throat Swelling, Tongue Swelling, Facial Pain, Neck Pain, Neck Mass, Other - Breasts Breasts: absent: As Per HPI, Change in Shape, Mass, Pain, Nipple Discharge, Nipple Inversion, Skin Changes, Swelling, Other - Cardiovascular Cardiovascular: As Per HPI - Respiratory Respiratory: absent: As Per HPI, Cough, Dyspnea, Hemoptysis, Dyspnea on Exertion, Wheezing, Snoring, Stridor, Pain on Inspiration, Chest Congestion, Excessive Mucous Production, Change in Mucous Color, Pain with Coughing, Other - Gastrointestinal Gastrointestinal: absent: As Per HPI, Abdominal Pain, Belching, Bloating, Change in Bowel Habits, Change in Stool Character, Coffee Ground Emesis, Constipation, Cramping, Diarrhea, Dyspepsia, Dysphagia, Early Satiety, Excessive Flatus, Fecal Incontinence, Heartburn, Hematemesis, Hematochezia, Loose Stools, Melena, Nausea, Odynophagia, Temesmus, Vomiting, Other - Genitourinary Genitourinary: absent: As Per HPI, Change in Urinary Stream, Difficulty Urinatin g, Dysuria, Flank Pain, Hematuria, Pyuria, Nocturia, Urinary Incontinence, Urinary Frequency, Urinary Hesitance, Urinary Urgency, Voiding Freq/Small Amts, Freq UTI, Hx Renal/Bladder Calculi, Hx /Renal Surgery, Bladder Distension, Other - Reproductive: Female Reproductive:Female: absent: As Per HPI, Amenorrhea, Amenorrhea/ Control, Currently Menstual, Cycle <21 Days, Cycle >35 Days, Cycle Variable, Menses 1-7 Days, Menses >/= 8 Days, Menses Variable, Cycle > 4 Weeks Between, No Menses for 6 Months, Heavy Menses, Light Menses, Normal Menses, Spotting Between Cycles, S/P Hysterectomy, Menopausal, Post Menopausal, Premenarche, Abnormal Vaginal Bleeding, Dysmenorrhea, Dyspareunia, Genital Lesions, Genital Pruritis, Pelvic Pain, Prolapse Symptoms, Sexual Dysfunction, Vaginal Discharge, Vaginal Dryness, Vaginal Odor, Vaginal Pruritis, Other - Menstruation Menstruation: absent: As Per HPI, Amenorrhea, Amenorrhea/ Control, Currently Menstual, Cycle <21 Days, Cycle >35 Days, Cycle Variable, Menses 1-7 Days, Menses >/= 8 Days, Menses Variable, Cycle > 4 Weeks Between, No Menses for 6 Months, Heavy Menses, Light Menses, Normal Menses, Spotting Between Cycles, S/P Hysterectomy, Menopausal, Post Menopausal, Premenarche, Abnormal Vaginal Bleeding, Dysmenorrhea, Other - Musculoskeletal Musculoskeletal: As Per HPI - Integumentary Integumentary: As Per HPI, Skin Pain, Wounds - Neurological Neurological: As Per HPI - Psychiatric Psychiatric: absent: As Per HPI, Abnormal Sleep Pattern, Anhedonia, Anxiety, Auditory Hallucinations, Behavioral Changes, Change in Appetite, Change in Libido, Confusion, Depression, Difficulty Concentrating, Hallucinations, Homicidal Ideation, Hopelessness, Irritability, Memory Loss, Mood Swings, Panic Attacks, Paranoia, Suicidal Ideation, Visual Hallucinations, Tactile Hallucinations, Other - Endocrine Endocrine: absent: As Per HPI, Change in Body Appearance, Change in Libido, Cold Intolorance, Deepening of Voice, Excessive Sweating, Fatigue, Flushing, Heat Intolorance, Increase in Ring/Shoe/Hat Size, Palpitations, Polydipsia, Polyphagia, Polyuria, Other - Hematologic/Lymphatic Hematologic: absent: As Per HPI, Easy Bleeding, Easy Bruising, Lymphadenopathy, Other Past Patient History - Past Medical History & Family History Past Medical History?: Yes Past Family History: Reviewed and not pertinent - Past Social History Smoking Status: Former Smoker Alcohol: None Drugs: Denies - CARDIAC Hx Pacemaker: No - PULMONARY Hx Asthma: Yes - NEUROLOGICAL Hx Neurological Disorder: No - HEENT Hx HEENT Problems: Yes Other/Comment: Uses eye glasses. - RENAL Hx Chronic Kidney Disease: No - ENDOCRINE/METABOLIC Hx Endocrine Disorders: Yes Hx Diabetes Mellitus Type 2: Yes - HEMATOLOGICAL/ONCOLOGICAL Hx Cancer: No - INTEGUMENTARY Other/Comment: Scaly bilateral lower legs. - MUSCULOSKELETAL/RHEUMATOLOGICAL Hx Musculoskeletal Disorders: Yes Hx Falls: Yes Hx Unsteady Gait: Yes - GASTROINTESTINAL Hx Gastrointestinal Disorders: No - GENITOURINARY/GYNECOLOGICAL Hx Genitourinary Disorders: No - PSYCHIATRIC Hx Psychophysiologic Disorder: No Hx Substance Use: No - SURGICAL HISTORY Hx Mastectomy: No - ANESTHESIA Hx Anesthesia: No Hx Anesthesia Reactions: No Hx Malignant Hyperthermia: No Meds Allergies/Adverse Reactions: Allergies Allergy/AdvReac Type Severity Reaction Status Date / Time No Known Allergies Allergy Verified 09/21/18 05:50 - Medications Medications: Current Medications Albuterol/Ipratropium (Duoneb 3 Mg/0.5 Mg (3 Ml) Ud) 3 ml INH RQ6 PRN PRN Reason: Shortness of Breath Last Admin: 09/25/18 23:44 Dose: 3 ml Alprazolam (Xanax) 0.25 mg PO Q12 PRN PRN Reason: Anxiety Stop: 09/28/18 21:10 Last Admin: 09/24/18 05:56 Dose: 0.25 mg Aspirin (Ecotrin) 81 mg PO DAILY [facility] Last Admin: 09/27/18 09:27 Dose: 81 mg Atorvastatin Calcium (Lipitor) 80 mg PO HS [facility] Last Admin: 09/26/18 22:24 Dose: 80 mg Ciprofloxacin (Cipro) 250 mg PO Q12 [facility] Stop: 09/29/18 10:19 Last Admin: 09/27/18 09:29 Dose: 250 mg Clopidogrel Bisulfate (Plavix) 75 mg PO DAILY [facility] Last Admin: 09/27/18 09:29 Dose: 75 mg Diphenhydramine HCl (Benadryl) 25 mg PO Q6 PRN PRN Reason: Itching / Pruritus Last Admin: 09/26/18 22:27 Dose: 25 mg Furosemide (Lasix) 40 mg PO DAILY [facility] Last Admin: 09/27/18 09:27 Dose: 40 mg Gabapentin (Neurontin) 100 mg PO DAILY [facility] Last Admin: 09/27/18 09:29 Dose: 100 mg Guaifenesin/Dextromethorphan (Robitussin Dm) 10 ml PO Q6 PRN PRN Reason: Cough Last Admin: 09/24/18 00:58 Dose: 10 ml Heparin Sodium (Porcine) (Heparin) 5,000 units SC Q8 [facility]; Protocol Last Admin: 09/27/18 09:28 Dose: 5,000 units Vancomycin HCl 1 gm/ Sodium (Chloride) 250 mls @ 166.667 mls/hr IVPB Q12 [facility]; Protocol Last Admin: 09/25/18 12:12 Dose: 166.667 mls/hr Insulin Human Lispro (Humalog) 0 units SC ACHS [facility]; Protocol Last Admin: 09/27/18 07:55 Dose: 2 u Isosorbide Mononitrate (Imdur Er) 30 mg PO DAILY [facility] Last Admin: 09/27/18 09:29 Dose: 30 mg Metoprolol Tartrate (Lopressor) 12.5 mg PO Q12 [facility] Last Admin: 09/27/18 09:28 Dose: 12.5 mg Montelukast Sodium (Singulair) 10 mg PO HS [facility] Last Admin: 09/26/18 22:24 Dose: 10 mg Pantoprazole Sodium (Protonix Ec Tab) 40 mg PO DAILY [facility] Last Admin: 09/27/18 09:28 Dose: 40 mg Spironolactone (Aldactone) 25 mg PO DAILY [facility] Last Admin: 09/27/18 09:29 Dose: 25 mg Physical Exam - Constitutional Appears: Non-toxic, Chronically Ill - Head Exam Head Exam: ATRAUMATIC, NORMAL INSPECTION, NORMOCEPHALIC - Eye Exam Eye Exam: PERRL. absent: Scleral icterus - ENT Exam ENT Exam: Mucous Membranes Dry, Normal External Ear Exam, Normal Oropharynx - Neck Exam Neck exam: Negative for: Lymphadenopathy - Respiratory Exam Respiratory Exam: Decreased Breath Sounds, Clear to Auscultation Bilateral - Cardiovascular Exam Cardiovascular Exam: REGULAR RHYTHM, +S1, +S2 - GI/Abdominal Exam GI & Abdominal Exam: Diminished Bowel Sounds, Distended, Soft. absent: Guarding, Rebound, Rigid, Tenderness - Rectal Exam Rectal Exam: Deferred - Exam Exam: NORMAL INSPECTION - Extremities Exam Extremities exam: Positive for: pedal edema, tenderness. Negative for: calf tenderness, pedal pulses present Additional comments: B/L lower extremtiy focused exam: Vasc: DP/PT pulses are non-palpable bilaterally, Cap refill time < 3 sec to all digits, TG warm to warm, +2 edema noted extending from foot proximally to the mid leg level bilaterally Ortho: Pain on palpation to all wounds; pain upon ROM bilateral LE. No pain on palpation of the calf b/l Neuro: Gross sensation intact, protective sensation absent Derm: LLE: Superficial ulceration noted to posterior aspect of inferior 1/3 of calf, serous drainage present, no malodor, no purulence, no tunneling no tracking. superficial bullae noted to the anterior aspect of the proximal left leg and central plantar aspect of the left rearfoot, mild weeping appreciated circumferentially to midleg. DTI to left heel appreciated RLE: Circular ulceration measuring approximately 5x4.5 extending into subcutaneous tissue noted to R heel with fibrous base, minimal malodor, + serous drainage, no purulence appreciated. No tunneling or tracking appreciated. No probe to bone - Back Exam Back exam: absent: CVA tenderness (L), CVA tenderness (R) - Neurological Exam Neurological exam: Alert, CN II-XII Intact, Oriented x3, Reflexes Normal - Psychiatric Exam Psychiatric exam: Depressed - Skin Skin Exam: Dry Results - Vital Signs Recent Vital Signs: Last Vital Signs Temp 98.1 F 09/27/18 13:14 Pulse 78 09/27/18 13:14 Resp 18 09/27/18 13:14 BP 130/74 09/27/18 13:14 Pulse Ox 99 09/27/18 08:14 - Labs Result Diagrams: 09/26/18 06:25 09/26/18 06:25 Labs: Laboratory Results - last 24 hr 09/26/18 09/26/18 09/27/18 16:27 21:17 04:49 POC Glucose (mg/dL) 227 H 199 H 225 H Vancomycin Trough 11/16/18 11/16/18 11:08 11:51 POC Glucose (mg/dL) 179 H Vancomycin Trough 11.4 H Assessment & Plan (1) Diabetic foot ulcer Status: Acute (2) Type 1 diabetes mellitus with diabetic foot infection Status: Acute - Assessment and Plan (Free Text) Assessment: 72F patient, seen and evaluated at bedside for bilateral lower extremity eryth barb, edema and ulcerations R wound culture: beta hemolytic group strep B MRI: possible OM of the metatarsals, tarsal bones, hindfoot bones, distal tibia and fibular Vascular consult; Per Dr. Jimenez CT Angio PICC line placed cont iv rx for 6-8 weeks
--- NOTE | 2018-09-27 14:08 | VASCULAR ---
PROCEDURE: Date of procedure: 09/27/2018 Procedure: 1. Placement of a right arm PICC with ultrasound and fluoroscopic guidance, CPT 42906 2. PICC tip confirmation with spot radiograph and is in the superior vena cava Medications: 1 percent lidocaine Total Fluoro time: 1.4 seconds Radiation: 0.20 MGy EBL: 2 cc HISTORY: Poor venous access TECHNIQUE: Following informed consent and procedure time-out, the patient was placed supine on the interventional table and the right arm prepped and draped in the usual sterile fashion. Ultrasound showed a patent and compressible right basilic vein. After the skin was anesthetized with lidocaine, the basilic vein was accessed with micro micropuncture technique using ultrasound guidance. A guidewire was then advanced under fluoroscopic guidance into the superior vena cava. An image documenting ultrasound guidance for vascular access was permanently saved. The length of the single-lumen 4 [place] PICC was trimmed to 39 centimeters and advanced through a peel-away sheath. The PICC was position with tip of PICC confirm a spot radiograph the superior vena cava. The PICC was secured to the patient's skin. The PICC was flushed. A biopatch and sterile dressing was applied. IMPRESSION: Placement of a single-lumen 4 [place] PICC trimmed to 39 centimeters via right basilic vein. The tip of the PICC is confirmed with spot radiograph and is in the superior vena cava.
--- NOTE | 2018-09-27 14:15 | VASCLAB ---
Date of service: 09/23/2018 STUDY DESCRIPTION: Lower Extremity Arterial Exam (PVR). HISTORY: evaluate blood flow to the lower extremity PRIORS: None. TECHNIQUE: Pulse volume recording waveforms and segmental pressures of bilateral lower extremities at multiple levels were obtained. Ankle Brachial Indices (ABIs) were calculated. Report prepared by Glenn Dempsey RDMS,BERNADETTE,CANDIS RAMON RIGHT LOWER EXTREMITY: * Brachial artery: Pressure - 137 mmHg. * High thigh: Pressure - 124 mmHg: Ratio - 0.89: PVR waveform - Reduced * Low thigh: Pressure - mmHg: Ratio - PVR waveform: Pulsatile * Calf: Pressure - 96 mmHg: Ratio - 0.68 PVR waveform: Reduced * Posterior tibial Artery: Pressure - mmHg: Ratio - PVR waveform: Pulsatile * Dorsalis pedis Artery: Pressure - 79 mmHg: Ratio - 0.56 PVR waveform: Reduced * Great toe: Pressure - mmHg: Ratio - PVR waveform: Pulsatile Ankle brachial index (WENDI): 0.56 LEFT LOWER EXTREMITY: * Brachial artery: Pressure - 140 mmHg. * High thigh: Pressure - 137 mmHg: Ratio - 0.98: PVR waveform - Reduced * Low thigh: Pressure - mmHg: Ratio - PVR waveform: Pulsatile * Calf: Pressure - 78 mmHg: Ratio - 0.56 PVR waveform: Reduced * Posterior tibial Artery: Pressure - mmHg: Ratio - PVR waveform: Pulsatile * Dorsalis pedis Artery: Pressure - 79 mmHg: Ratio - 0.56 PVR waveform: Reduced * Great toe: Pressure - mmHg: Ratio - PVR waveform: Pulsatile Ankle brachial index (WENDI): 0.56 OTHER FINDINGS: IMPRESSION: Right: There was evidence of moderately hemodynamically significant arterial insufficiency in the right lower extremity. Left: There was evidence of moderately hemodynamically significant arterial insufficiency in the left lower extremity. Sever edema of both lower Ext.
[2018-09-27 15:14] LABS: SQUAMOUS EPITHIAL 2 /hpf (0-5); URINE BACTERIA RARE (<OCC); URINE BILIRUBIN NEGATIVE (NEGATIVE); URINE BLOOD NEGATIVE (NEGATIVE); URINE CLARITY CLEAR (Clear); URINE COLOR STRAW (YELLOW); URINE GLUCOSE (UA) NEG (Normal); URINE LEUKOCYTE ESTERASE NEG Leu/uL (Negative); URINE PROTEIN NEGATIVE (NEGATIVE); URINE UROBILINOGEN 0.2-1.0 mg/dL (0.2-1.0)
[2018-09-27] MEDS: Piperacillin/Tazobact 3.375 GM in Sodium Chloride 0.9% 100 ML IVPB SCH ×2 (15:25→22:12)
[2018-09-28] MEDS: Piperacillin/Tazobact 3.375 GM in Sodium Chloride 0.9% 100 ML IVPB SCH ×3 (05:35→21:35)
[2018-09-28] MEDS: Insulin Lispro (humaLOG) 100 Units/ml Inj SC SCH ×4 (07:30→22:27)
[2018-09-28] MEDS: Pantoprazole 40 mg EC Tab PO SCH (08:32)
--- NOTE | 2018-09-28 12:28 | CP.PCM.PN ---
Subjective - Date & Time of Evaluation Date of Evaluation: 09/28/18 Time of Evaluation: 12:25 - Subjective Subjective: Podiatry progress note for Dr. Smith: 72F patient,seen and evaluated at bedside for bilateral lower extremity erythema, edema and ulcerations. Patient is resting comfortably and in NAD. She rates moderate pain to her B/L lower extremities. She denies any acute events overnight. Denies N/V/F/SOB/CP/Chills. Objective - Vital Signs/Intake and Output Vital Signs (last 24 hours): Temp Pulse Resp BP Pulse Ox 98.1 F 88 20 119/73 100 09/28/18 07:58 09/28/18 08:30 09/28/18 07:58 09/28/18 08:30 09/28/18 07:58 - Medications Medications: Current Medications Albuterol/Ipratropium (Duoneb 3 Mg/0.5 Mg (3 Ml) Ud) 3 ml INH RQ6 PRN PRN Reason: Shortness of Breath Last Admin: 09/25/18 23:44 Dose: 3 ml Alprazolam (Xanax) 0.25 mg PO Q12 PRN PRN Reason: Anxiety Stop: 09/28/18 21:10 Last Admin: 09/24/18 05:56 Dose: 0.25 mg Aspirin (Ecotrin) 81 mg PO DAILY [facility] Last Admin: 09/28/18 08:24 Dose: 81 mg Atorvastatin Calcium (Lipitor) 80 mg PO HS [facility] Last Admin: 09/27/18 22:11 Dose: 80 mg Clopidogrel Bisulfate (Plavix) 75 mg PO DAILY [facility] Last Admin: 09/28/18 08:26 Dose: 75 mg Diphenhydramine HCl (Benadryl) 25 mg PO Q6 PRN PRN Reason: Itching / Pruritus Last Admin: 09/26/18 22:27 Dose: 25 mg Furosemide (Lasix) 40 mg PO DAILY [facility] Last Admin: 09/28/18 08:27 Dose: 40 mg Gabapentin (Neurontin) 100 mg PO DAILY [facility] Last Admin: 09/28/18 08:31 Dose: 100 mg Guaifenesin/Dextromethorphan (Robitussin Dm) 10 ml PO Q6 PRN PRN Reason: Cough Last Admin: 09/24/18 00:58 Dose: 10 ml Heparin Sodium (Porcine) (Heparin) 5,000 units SC Q8 [facility]; Protocol Last Admin: 09/28/18 08:25 Dose: 5,000 units Vancomycin HCl 1 gm/ Sodium (Chloride) 250 mls @ 166.667 mls/hr IVPB Q12 [facility]; Protocol Last Admin: 09/25/18 12:12 Dose: 166.667 mls/hr Piperacillin Sod/Tazobactam (Sod 3.375 gm/ Sodium Chloride) 100 mls @ 100 mls/hr IVPB Q8H [facility]; Protocol Last Admin: 09/28/18 05:35 Dose: 100 mls/hr Insulin Human Lispro (Humalog) 0 units SC ACHS [facility]; Protocol Last Admin: 09/27/18 22:00 Dose: Not Given Isosorbide Mononitrate (Imdur Er) 30 mg PO DAILY [facility] Last Admin: 09/28/18 08:27 Dose: 30 mg Metoprolol Tartrate (Lopressor) 12.5 mg PO Q12 [facility] Last Admin: 09/28/18 08:30 Dose: 12.5 mg Montelukast Sodium (Singulair) 10 mg PO HS [facility] Last Admin: 09/27/18 22:11 Dose: 10 mg Pantoprazole Sodium (Protonix Ec Tab) 40 mg PO DAILY [facility] Last Admin: 09/28/18 08:32 Dose: 40 mg Spironolactone (Aldactone) 25 mg PO DAILY [facility] Last Admin: 09/28/18 08:24 Dose: 25 mg - Labs Labs: 09/26/18 06:25 09/26/18 06:25 - Constitutional Appears: Well, Non-toxic, No Acute Distress - Head Exam Head Exam: ATRAUMATIC, NORMOCEPHALIC - Extremities Exam Additional comments: B/L lower extremtiy focused exam: Vasc: DP/PT pulses are non-palpable bilaterally, Cap refill time < 3 sec to all digits, TG warm to warm, +2 edema noted extending from foot proximally to the mid leg level bilaterally Ortho: mild pain on palpation to all wounds; pain upon ROM bilateral LE. No pain on palpation of the calf b/l Neuro: Gross sensation intact, protective sensation absent Derm: LLE: Superficial ulceration noted to posterior aspect of inferior 1/3 of calf, serous drainage present, no malodor, no purulence, no tunneling no tracking. superficial bullae noted to the anterior aspect of the proximal left leg and central plantar aspect of the left rearfoot, mild weeping appreciated circumferentially to midleg. DTI to left heel appreciated RLE: Circular ulceration measuring approximately 5x4.5 extending into subcutaneous tissue noted to R heel with fibrous base, minimal malodor, + serous drainage, no purulence appreciated. No tunneling or tracking appreciated. No probe to bone - Neurological Exam Neurological Exam: Alert, Awake, Oriented x3 - Psychiatric Exam Psychiatric exam: Normal Affect, Normal Mood Assessment and Plan - Assessment and Plan (Free Text) Assessment: 72F patient, seen and evaluated at bedside for bilateral lower extremity erythema, edema and ulcerations Plan: Patient seen and evaluated, Discussed patient plan with Dr. Smith Continue with IV abx R foot x-rays; moderate soft tissue swelling, no OM or fracture, diffuse osteopenia R wound culture: beta hemolytic group strep B Local wound care: R dressed with betadine, ABD, DSD, L dressed with xeroform, ABD, DSD MRI: possible OM of the metatarsals, tarsal bones, hindfoot bones, distal tibia and fibular WENDI/PVR - RIGHT - evidence of moderately hemodynamically significant arterial insufficiency in RLE, LEFT - same Vascular consult; Per Dr. Jimenez CT Angio, vasc recs appreciated. Infectious disease consult ordered; recs appreciated PICC line placed Multipodus boots worn at all times Will continue to follow
[2018-09-29] MEDS: Piperacillin/Tazobact 3.375 GM in Sodium Chloride 0.9% 100 ML IVPB SCH ×3 (05:30→22:17)
[2018-09-29] MEDS: Insulin Lispro (humaLOG) 100 Units/ml Inj SC SCH ×4 (08:52→22:50)
[2018-09-29] MEDS: Pantoprazole 40 mg EC Tab PO SCH (08:53)
--- NOTE | 2018-09-29 12:54 | CP.PCM.PN ---
Subjective - Date & Time of Evaluation Date of Evaluation: 09/29/18 Time of Evaluation: 12:51 - Subjective Subjective: Podiatry progress note for Dr. Smith: 72F patient,seen and evaluated at bedside for bilateral lower extremity erythema, edema and ulcerations. Seen resting comfortably. States she is feeling neither better nor worse today. She rates moderate pain to her B/L lower extremities. She denies any acute events overnight. Denies N/V/F/SOB/CP/Chills. Objective - Vital Signs/Intake and Output Vital Signs (last 24 hours): Temp Pulse Resp BP Pulse Ox 97.7 F 72 20 111/66 98 09/29/18 08:31 09/29/18 08:53 09/29/18 08:31 09/29/18 08:53 09/29/18 08:31 - Medications Medications: Current Medications Albuterol/Ipratropium (Duoneb 3 Mg/0.5 Mg (3 Ml) Ud) 3 ml INH RQ6 PRN PRN Reason: Shortness of Breath Last Admin: 09/25/18 23:44 Dose: 3 ml Aspirin (Ecotrin) 81 mg PO DAILY [facility] Last Admin: 09/29/18 08:52 Dose: 81 mg Atorvastatin Calcium (Lipitor) 80 mg PO HS [facility] Last Admin: 09/28/18 21:35 Dose: 80 mg Clopidogrel Bisulfate (Plavix) 75 mg PO DAILY [facility] Last Admin: 09/29/18 08:53 Dose: 75 mg Diphenhydramine HCl (Benadryl) 25 mg PO Q6 PRN PRN Reason: Itching / Pruritus Last Admin: 09/28/18 20:45 Dose: 25 mg Furosemide (Lasix) 40 mg PO DAILY [facility] Last Admin: 09/29/18 08:53 Dose: 40 mg Gabapentin (Neurontin) 100 mg PO DAILY [facility] Last Admin: 09/29/18 08:53 Dose: 100 mg Guaifenesin/Dextromethorphan (Robitussin Dm) 10 ml PO Q6 PRN PRN Reason: Cough Last Admin: 09/24/18 00:58 Dose: 10 ml Heparin Sodium (Porcine) (Heparin) 5,000 units SC Q8 [facility]; Protocol Last Admin: 09/29/18 08:52 Dose: 5,000 units Vancomycin HCl 1 gm/ Sodium (Chloride) 250 mls @ 166.667 mls/hr IVPB Q12 [facility]; Protocol Last Admin: 09/25/18 12:12 Dose: 166.667 mls/hr Piperacillin Sod/Tazobactam (Sod 3.375 gm/ Sodium Chloride) 100 mls @ 100 mls/hr IVPB Q8H [facility]; Protocol Last Admin: 09/29/18 05:30 Dose: 100 mls/hr Insulin Human Lispro (Humalog) 0 units SC ACHS [facility]; Protocol Last Admin: 09/29/18 12:38 Dose: 3 u Isosorbide Mononitrate (Imdur Er) 30 mg PO DAILY [facility] Last Admin: 09/29/18 08:52 Dose: 30 mg Metoprolol Tartrate (Lopressor) 12.5 mg PO Q12 [facility] Last Admin: 09/29/18 08:53 Dose: 12.5 mg Montelukast Sodium (Singulair) 10 mg PO HS [facility] Last Admin: 09/28/18 21:35 Dose: 10 mg Pantoprazole Sodium (Protonix Ec Tab) 40 mg PO DAILY [facility] Last Admin: 09/29/18 08:53 Dose: 40 mg Spironolactone (Aldactone) 25 mg PO DAILY [facility] Last Admin: 09/29/18 08:52 Dose: 25 mg - Labs Labs: 09/26/18 06:25 09/26/18 06:25 - Constitutional Appears: Well, Non-toxic, No Acute Distress - Head Exam Head Exam: ATRAUMATIC, NORMOCEPHALIC - Extremities Exam Additional comments: B/L lower extremtiy focused exam: Vasc: DP/PT pulses are non-palpable bilaterally, Cap refill time < 3 sec to all digits, TG warm to warm, +2 edema noted extending from foot proximally to the mid leg level bilaterally Ortho: mild pain on palpation to all wounds; pain upon ROM bilateral LE. No pain on palpation of the calf b/l Neuro: Gross sensation intact, protective sensation absent Derm: LLE: Superficial ulceration noted to posterior aspect of inferior 1/3 of calf, serous drainage present, no malodor, no purulence, no tunneling no tracking. superficial bullae noted to the anterior aspect of the proximal left leg and central plantar aspect of the left rearfoot, mild weeping appreciated circumf erentially to midleg. DTI to left heel appreciated RLE: Circular ulceration measuring approximately 5x4.5 extending into subcutaneous tissue noted to R heel with fibrous base, minimal malodor, no huong inage, no purulence appreciated. No tunneling or tracking appreciated. No probe to bone. No evidence of cellulitis or superficial infection. - Neurological Exam Neurological Exam: Alert, Awake, Oriented x3 - Psychiatric Exam Psychiatric exam: Normal Affect, Normal Mood Assessment and Plan - Assessment and Plan (Free Text) Assessment: 72F patient, seen and evaluated at bedside for bilateral lower extremity erythema, edema and ulcerations Plan: Patient seen and evaluated, Discussed patient plan with Dr. Smith Continue with IV abx R foot x-rays; moderate soft tissue swelling, no OM or fracture, diffuse osteopenia R wound culture: beta hemolytic group strep B Local wound care: R dressed with betadine, ABD, DSD, L dressed with xeroform, ABD, DSD MRI: possible OM of the metatarsals, tarsal bones, hindfoot bones, distal tibia and fibular WENDI/PVR - RIGHT - evidence of moderately hemodynamically significant arterial insufficiency in RLE, LEFT - same Vascular consult; Per Dr. Jimenez CT Angio, vasc recs appreciated. Infectious disease consult ordered; recs appreciated PICC line placed Multipodus boots worn at all times Will continue to follow
--- NOTE | 2018-09-29 14:21 | CP.PCM.PN ---
Subjective - Date & Time of Evaluation Date of Evaluation: 09/29/18 Time of Evaluation: 08:00 - Subjective Subjective: no fever denies pain dressings in place Objective - Vital Signs/Intake and Output Vital Signs (last 24 hours): Temp Pulse Resp BP Pulse Ox 97.7 F 72 20 111/66 98 09/29/18 08:31 09/29/18 08:53 09/29/18 08:31 09/29/18 08:53 09/29/18 08:31 - Medications Medications: Current Medications Albuterol/Ipratropium (Duoneb 3 Mg/0.5 Mg (3 Ml) Ud) 3 ml INH RQ6 PRN PRN Reason: Shortness of Breath Last Admin: 09/25/18 23:44 Dose: 3 ml Aspirin (Ecotrin) 81 mg PO DAILY [facility] Last Admin: 09/29/18 08:52 Dose: 81 mg Atorvastatin Calcium (Lipitor) 80 mg PO HS [facility] Last Admin: 09/28/18 21:35 Dose: 80 mg Clopidogrel Bisulfate (Plavix) 75 mg PO DAILY [facility] Last Admin: 09/29/18 08:53 Dose: 75 mg Diphenhydramine HCl (Benadryl) 25 mg PO Q6 PRN PRN Reason: Itching / Pruritus Last Admin: 09/28/18 20:45 Dose: 25 mg Furosemide (Lasix) 40 mg PO DAILY [facility] Last Admin: 09/29/18 08:53 Dose: 40 mg Gabapentin (Neurontin) 100 mg PO DAILY [facility] Last Admin: 09/29/18 08:53 Dose: 100 mg Guaifenesin/Dextromethorphan (Robitussin Dm) 10 ml PO Q6 PRN PRN Reason: Cough Last Admin: 09/24/18 00:58 Dose: 10 ml Heparin Sodium (Porcine) (Heparin) 5,000 units SC Q8 [facility]; Protocol Last Admin: 09/29/18 08:52 Dose: 5,000 units Vancomycin HCl 1 gm/ Sodium (Chloride) 250 mls @ 166.667 mls/hr IVPB Q12 [facility]; Protocol Last Admin: 09/25/18 12:12 Dose: 166.667 mls/hr Piperacillin Sod/Tazobactam (Sod 3.375 gm/ Sodium Chloride) 100 mls @ 100 mls/hr IVPB Q8H [facility]; Protocol Last Admin: 09/29/18 05:30 Dose: 100 mls/hr Insulin Human Lispro (Humalog) 0 units SC ACHS [facility]; Protocol Last Admin: 09/29/18 12:38 Dose: 3 u Isosorbide Mononitrate (Imdur Er) 30 mg PO DAILY [facility] Last Admin: 09/29/18 08:52 Dose: 30 mg Metoprolol Tartrate (Lopressor) 12.5 mg PO Q12 [facility] Last Admin: 09/29/18 08:53 Dose: 12.5 mg Montelukast Sodium (Singulair) 10 mg PO HS [facility] Last Admin: 09/28/18 21:35 Dose: 10 mg Pantoprazole Sodium (Protonix Ec Tab) 40 mg PO DAILY [facility] Last Admin: 09/29/18 08:53 Dose: 40 mg Spironolactone (Aldactone) 25 mg PO DAILY [facility] Last Admin: 09/29/18 08:52 Dose: 25 mg - Labs Labs: 09/26/18 06:25 09/26/18 06:25 - Constitutional Appears: Non-toxic, Chronically Ill - Head Exam Head Exam: NORMOCEPHALIC - Eye Exam Eye Exam: absent: Scleral icterus - ENT Exam ENT Exam: Mucous Membranes Dry - Neck Exam Neck Exam: absent: Lymphadenopathy - Respiratory Exam Respiratory Exam: Decreased Breath Sounds - Cardiovascular Exam Cardiovascular Exam: REGULAR RHYTHM - GI/Abdominal Exam GI & Abdominal Exam: Distended, Soft. absent: Tenderness - Rectal Exam Rectal Exam: Deferred - Exam Exam: NORMAL INSPECTION - Extremities Exam Extremities Exam: absent: Pedal Edema - Back Exam Back Exam: absent: CVA tenderness (L), CVA tenderness (R), paraspinal tenderness - Neurological Exam Neurological Exam: Alert, Awake, CN II-XII Intact. absent: Motor Sensory Deficit - Psychiatric Exam Psychiatric exam: Normal Affect - Skin Skin Exam: Dry Assessment and Plan (1) Diabetic foot ulcer Status: Acute (2) Type 1 diabetes mellitus with diabetic foot infection Status: Acute - Assessment and Plan (Free Text) Assessment: likely OM severe PVD CAD DMII neuropathy cont IV antibiotics for 6 weeks Plan: cont IV rx for 6 weeks with wound care vascular follow up dr Jimenez
--- NOTE | 2018-09-29 21:04 | CP.PCM.PN ---
Subjective - Date & Time of Evaluation Date of Evaluation: 09/27/18 Time of Evaluation: 17:25 Objective - Vital Signs/Intake and Output Vital Signs (last 24 hours): Temp Pulse Resp BP Pulse Ox 98.3 F 63 20 102/61 97 09/29/18 16:43 09/29/18 16:43 09/29/18 16:43 09/29/18 16:43 09/29/18 16:43 - Medications Medications: Current Medications Albuterol/Ipratropium (Duoneb 3 Mg/0.5 Mg (3 Ml) Ud) 3 ml INH RQ6 PRN PRN Reason: Shortness of Breath Last Admin: 09/25/18 23:44 Dose: 3 ml Aspirin (Ecotrin) 81 mg PO DAILY [facility] Last Admin: 09/29/18 08:52 Dose: 81 mg Atorvastatin Calcium (Lipitor) 80 mg PO HS [facility] Last Admin: 09/28/18 21:35 Dose: 80 mg Clopidogrel Bisulfate (Plavix) 75 mg PO DAILY [facility] Last Admin: 09/29/18 08:53 Dose: 75 mg Diphenhydramine HCl (Benadryl) 25 mg PO Q6 PRN PRN Reason: Itching / Pruritus Last Admin: 09/28/18 20:45 Dose: 25 mg Furosemide (Lasix) 40 mg PO DAILY [facility] Last Admin: 09/29/18 08:53 Dose: 40 mg Gabapentin (Neurontin) 100 mg PO DAILY [facility] Last Admin: 09/29/18 08:53 Dose: 100 mg Guaifenesin/Dextromethorphan (Robitussin Dm) 10 ml PO Q6 PRN PRN Reason: Cough Last Admin: 09/24/18 00:58 Dose: 10 ml Heparin Sodium (Porcine) (Heparin) 5,000 units SC Q8 [facility]; Protocol Last Admin: 09/29/18 17:10 Dose: 5,000 units Vancomycin HCl 1 gm/ Sodium (Chloride) 250 mls @ 166.667 mls/hr IVPB Q12 [facility]; Protocol Last Admin: 09/25/18 12:12 Dose: 166.667 mls/hr Piperacillin Sod/Tazobactam (Sod 3.375 gm/ Sodium Chloride) 100 mls @ 100 mls/hr IVPB Q8H [facility]; Protocol Last Admin: 09/29/18 14:30 Dose: 100 mls/hr Insulin Human Lispro (Humalog) 0 units SC ACHS [facility]; Protocol Last Admin: 09/29/18 17:10 Dose: 3 u Isosorbide Mononitrate (Imdur Er) 30 mg PO DAILY [facility] Last Admin: 09/29/18 08:52 Dose: 30 mg Metoprolol Tartrate (Lopressor) 12.5 mg PO Q12 [facility] Last Admin: 09/29/18 08:53 Dose: 12.5 mg Montelukast Sodium (Singulair) 10 mg PO HS [facility] Last Admin: 09/28/18 21:35 Dose: 10 mg Pantoprazole Sodium (Protonix Ec Tab) 40 mg PO DAILY [facility] Last Admin: 09/29/18 08:53 Dose: 40 mg Spironolactone (Aldactone) 25 mg PO DAILY [facility] Last Admin: 09/29/18 08:52 Dose: 25 mg - Labs Labs: 09/26/18 06:25 09/26/18 06:25 Assessment and Plan (1) 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
--- NOTE | 2018-09-29 21:05 | CP.PCM.PN ---
Subjective - Date & Time of Evaluation Date of Evaluation: 09/28/18 Time of Evaluation: 18:25 Objective - Vital Signs/Intake and Output Vital Signs (last 24 hours): Temp Pulse Resp BP Pulse Ox 98.3 F 63 20 102/61 97 09/29/18 16:43 09/29/18 16:43 09/29/18 16:43 09/29/18 16:43 09/29/18 16:43 - Medications Medications: Current Medications Albuterol/Ipratropium (Duoneb 3 Mg/0.5 Mg (3 Ml) Ud) 3 ml INH RQ6 PRN PRN Reason: Shortness of Breath Last Admin: 09/25/18 23:44 Dose: 3 ml Aspirin (Ecotrin) 81 mg PO DAILY [facility] Last Admin: 09/29/18 08:52 Dose: 81 mg Atorvastatin Calcium (Lipitor) 80 mg PO HS [facility] Last Admin: 09/28/18 21:35 Dose: 80 mg Clopidogrel Bisulfate (Plavix) 75 mg PO DAILY [facility] Last Admin: 09/29/18 08:53 Dose: 75 mg Diphenhydramine HCl (Benadryl) 25 mg PO Q6 PRN PRN Reason: Itching / Pruritus Last Admin: 09/28/18 20:45 Dose: 25 mg Furosemide (Lasix) 40 mg PO DAILY [facility] Last Admin: 09/29/18 08:53 Dose: 40 mg Gabapentin (Neurontin) 100 mg PO DAILY [facility] Last Admin: 09/29/18 08:53 Dose: 100 mg Guaifenesin/Dextromethorphan (Robitussin Dm) 10 ml PO Q6 PRN PRN Reason: Cough Last Admin: 09/24/18 00:58 Dose: 10 ml Heparin Sodium (Porcine) (Heparin) 5,000 units SC Q8 [facility]; Protocol Last Admin: 09/29/18 17:10 Dose: 5,000 units Vancomycin HCl 1 gm/ Sodium (Chloride) 250 mls @ 166.667 mls/hr IVPB Q12 [facility]; Protocol Last Admin: 09/25/18 12:12 Dose: 166.667 mls/hr Piperacillin Sod/Tazobactam (Sod 3.375 gm/ Sodium Chloride) 100 mls @ 100 mls/hr IVPB Q8H [facility]; Protocol Last Admin: 09/29/18 14:30 Dose: 100 mls/hr Insulin Human Lispro (Humalog) 0 units SC ACHS [facility]; Protocol Last Admin: 09/29/18 17:10 Dose: 3 u Isosorbide Mononitrate (Imdur Er) 30 mg PO DAILY [facility] Last Admin: 09/29/18 08:52 Dose: 30 mg Metoprolol Tartrate (Lopressor) 12.5 mg PO Q12 [facility] Last Admin: 09/29/18 08:53 Dose: 12.5 mg Montelukast Sodium (Singulair) 10 mg PO HS [facility] Last Admin: 09/28/18 21:35 Dose: 10 mg Pantoprazole Sodium (Protonix Ec Tab) 40 mg PO DAILY [facility] Last Admin: 09/29/18 08:53 Dose: 40 mg Spironolactone (Aldactone) 25 mg PO DAILY [facility] Last Admin: 09/29/18 08:52 Dose: 25 mg - Labs Labs: 09/26/18 06:25 09/26/18 06:25 Assessment and Plan (1) 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
--- NOTE | 2018-09-29 21:05 | CP.PCM.PN ---
Subjective - Date & Time of Evaluation Date of Evaluation: 09/29/18 Time of Evaluation: 17:15 Objective - Vital Signs/Intake and Output Vital Signs (last 24 hours): Temp Pulse Resp BP Pulse Ox 98.3 F 63 20 102/61 97 09/29/18 16:43 09/29/18 16:43 09/29/18 16:43 09/29/18 16:43 09/29/18 16:43 - Medications Medications: Current Medications Albuterol/Ipratropium (Duoneb 3 Mg/0.5 Mg (3 Ml) Ud) 3 ml INH RQ6 PRN PRN Reason: Shortness of Breath Last Admin: 09/25/18 23:44 Dose: 3 ml Aspirin (Ecotrin) 81 mg PO DAILY [facility] Last Admin: 09/29/18 08:52 Dose: 81 mg Atorvastatin Calcium (Lipitor) 80 mg PO HS [facility] Last Admin: 09/28/18 21:35 Dose: 80 mg Clopidogrel Bisulfate (Plavix) 75 mg PO DAILY [facility] Last Admin: 09/29/18 08:53 Dose: 75 mg Diphenhydramine HCl (Benadryl) 25 mg PO Q6 PRN PRN Reason: Itching / Pruritus Last Admin: 09/28/18 20:45 Dose: 25 mg Furosemide (Lasix) 40 mg PO DAILY [facility] Last Admin: 09/29/18 08:53 Dose: 40 mg Gabapentin (Neurontin) 100 mg PO DAILY [facility] Last Admin: 09/29/18 08:53 Dose: 100 mg Guaifenesin/Dextromethorphan (Robitussin Dm) 10 ml PO Q6 PRN PRN Reason: Cough Last Admin: 09/24/18 00:58 Dose: 10 ml Heparin Sodium (Porcine) (Heparin) 5,000 units SC Q8 [facility]; Protocol Last Admin: 09/29/18 17:10 Dose: 5,000 units Vancomycin HCl 1 gm/ Sodium (Chloride) 250 mls @ 166.667 mls/hr IVPB Q12 [facility]; Protocol Last Admin: 09/25/18 12:12 Dose: 166.667 mls/hr Piperacillin Sod/Tazobactam (Sod 3.375 gm/ Sodium Chloride) 100 mls @ 100 mls/hr IVPB Q8H [facility]; Protocol Last Admin: 09/29/18 14:30 Dose: 100 mls/hr Insulin Human Lispro (Humalog) 0 units SC ACHS [facility]; Protocol Last Admin: 09/29/18 17:10 Dose: 3 u Isosorbide Mononitrate (Imdur Er) 30 mg PO DAILY [facility] Last Admin: 09/29/18 08:52 Dose: 30 mg Metoprolol Tartrate (Lopressor) 12.5 mg PO Q12 [facility] Last Admin: 09/29/18 08:53 Dose: 12.5 mg Montelukast Sodium (Singulair) 10 mg PO HS [facility] Last Admin: 09/28/18 21:35 Dose: 10 mg Pantoprazole Sodium (Protonix Ec Tab) 40 mg PO DAILY [facility] Last Admin: 09/29/18 08:53 Dose: 40 mg Spironolactone (Aldactone) 25 mg PO DAILY [facility] Last Admin: 09/29/18 08:52 Dose: 25 mg - Labs Labs: 09/26/18 06:25 09/26/18 06:25 Assessment and Plan (1) 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
[2018-09-30] MEDS: Piperacillin/Tazobact 3.375 GM in Sodium Chloride 0.9% 100 ML IVPB SCH ×2 (05:15→14:40)
[2018-09-30] MEDS: Pantoprazole 40 mg EC Tab PO SCH ×2 (07:25→09:13)
--- NOTE | 2018-09-30 08:39 | CP.PCM.PN ---
Subjective - Date & Time of Evaluation Date of Evaluation: 09/30/18 Time of Evaluation: 08:39 - Subjective Subjective: Podiatry progress note for Dr. Smith: 72F patient,seen and evaluated at bedside for bilateral lower extremity erythema, edema and ulcerations. Seen resting comfortably. States less pain in LE. She denies any acute events overnight. Denies N/V/F/SOB/CP/Chills. Objective - Vital Signs/Intake and Output Vital Signs (last 24 hours): Temp Pulse Resp BP Pulse Ox 98.1 F 62 20 100/63 95 09/30/18 07:58 09/30/18 07:58 09/30/18 07:58 09/30/18 07:58 09/30/18 07:58 - Medications Medications: Current Medications Albuterol/Ipratropium (Duoneb 3 Mg/0.5 Mg (3 Ml) Ud) 3 ml INH RQ6 PRN PRN Reason: Shortness of Breath Last Admin: 09/25/18 23:44 Dose: 3 ml Aspirin (Ecotrin) 81 mg PO DAILY [facility] Last Admin: 09/29/18 08:52 Dose: 81 mg Atorvastatin Calcium (Lipitor) 80 mg PO HS [facility] Last Admin: 09/29/18 22:33 Dose: 80 mg Clopidogrel Bisulfate (Plavix) 75 mg PO DAILY [facility] Last Admin: 09/29/18 08:53 Dose: 75 mg Diphenhydramine HCl (Benadryl) 25 mg PO Q6 PRN PRN Reason: Itching / Pruritus Last Admin: 09/29/18 22:34 Dose: 25 mg Furosemide (Lasix) 40 mg PO DAILY [facility] Last Admin: 09/29/18 08:53 Dose: 40 mg Gabapentin (Neurontin) 100 mg PO DAILY [facility] Last Admin: 09/29/18 08:53 Dose: 100 mg Guaifenesin/Dextromethorphan (Robitussin Dm) 10 ml PO Q6 PRN PRN Reason: Cough Last Admin: 09/24/18 00:58 Dose: 10 ml Heparin Sodium (Porcine) (Heparin) 5,000 units SC Q8 [facility]; Protocol Last Admin: 09/30/18 01:36 Dose: Not Given Vancomycin HCl 1 gm/ Sodium (Chloride) 250 mls @ 166.667 mls/hr IVPB Q12 [facility]; Protocol Last Admin: 09/25/18 12:12 Dose: 166.667 mls/hr Piperacillin Sod/Tazobactam (Sod 3.375 gm/ Sodium Chloride) 100 mls @ 100 mls/hr IVPB Q8H [facility]; Protocol Last Admin: 09/30/18 05:15 Dose: 100 mls/hr Insulin Human Lispro (Humalog) 0 units SC ACHS [facility]; Protocol Last Admin: 09/29/18 22:50 Dose: Not Given Isosorbide Mononitrate (Imdur Er) 30 mg PO DAILY [facility] Last Admin: 09/29/18 08:52 Dose: 30 mg Metoprolol Tartrate (Lopressor) 12.5 mg PO Q12 [facility] Last Admin: 09/29/18 22:32 Dose: 12.5 mg Montelukast Sodium (Singulair) 10 mg PO HS [facility] Last Admin: 09/29/18 22:33 Dose: 10 mg Pantoprazole Sodium (Protonix Ec Tab) 40 mg PO DAILY [facility] Last Admin: 09/30/18 07:25 Dose: 40 mg Spironolactone (Aldactone) 25 mg PO DAILY [facility] Last Admin: 09/29/18 08:52 Dose: 25 mg - Labs Labs: 09/26/18 06:25 09/26/18 06:25 - Constitutional Appears: Well, Non-toxic, No Acute Distress - Head Exam Head Exam: ATRAUMATIC, NORMOCEPHALIC - Extremities Exam Additional comments: B/L lower extremtiy focused exam: Vasc: DP/PT pulses are non-palpable bilaterally, Cap refill time < 3 sec to all digits, TG warm to warm, +2 edema noted extending from foot proximally to the mid leg level bilaterally Ortho: mild pain on palpation to all wounds; pain upon ROM bilateral LE. No pain on palpation of the calf b/l Neuro: Gross sensation intact, protective sensation absent Derm: LLE: Superficial ulceration noted to posterior aspect of inferior 1/3 of calf, serous drainage present, no malodor, no purulence, no tunneling no tracking. superficial bullae noted to the anterior aspect of the proximal left leg and central plantar aspect of the left rearfoot, mild weeping appreciated circumferentially to midleg. DTI to left heel appreciated RLE: Circular ulceration measuring approximately 5x4.5 extending into subcutaneous tissue noted to R heel with fibrous base, minimal malodor, no drainage, no purulence appreciated. No tunneling or tracking appreciated. No probe to bone. No evidence of cellulitis or superficial infection. - Neurological Exam Neurological Exam: Alert, Awake, Oriented x3 - Psychiatric Exam Psychiatric exam: Normal Affect, Normal Mood Assessment and Plan - Assessment and Plan (Free Text) Assessment: 72F patient, seen and evaluated at bedside for bilateral lower extremity erythema, edema and ulcerations Plan: Patient seen and evaluated, Discussed in detail with Dr. Smith Continue with IV abx R foot x-rays; moderate soft tissue swelling, no OM or fracture, diffuse o steopenia R wound culture: beta hemolytic group strep B Local wound care: R dressed with betadine, ABD, DSD, L dressed with xeroform, ABD, DSD MRI: possible OM of the metatarsals, tarsal bones, hindfoot bones, distal tibia and fibular WENDI/PVR - RIGHT - evidence of moderately hemodynamically significant arterial insufficiency in RLE, LEFT - same Vascular consult; Per Dr. Jimenez CT Angio, vasc recs appreciated. Infectious disease consult ordered; recs appreciated PICC line placed Multipodus boots worn at all times Will continue to follow
[2018-09-30] MEDS: Insulin Lispro (humaLOG) 100 Units/ml Inj SC SCH ×4 (09:11→21:58)
[2018-09-30] MEDS: Albuterol-Ipratrop 3 mg / 0.5 (3 ml) UD INH PRN (09:31)
[2018-09-30] MEDS ORDERED: Iodixanol 320 MG/ML 100 ML BOTTLE IV ONE (17:31)
[2018-09-30] MEDS ORDERED: Sodium Chloride 0.9% 50 ML IV ONE (17:32)
--- NOTE | 2018-09-30 22:06 | CP.PCM.CON ---
History of Present Illness - History of Present Illness History of Present Illness: Consultation for evaluation of PVOD / hx of CAD s/p impella assisted PCI of LM/LAD/LCx HPI: 72-year-old female with past medical history significant for hypertension diabetes mellitus peripheral vascular occlusive disease admitted about 4 months ago to her local hospital with inability to walk ambulate and gangrene of the lower extremity patient at that time was diagnosed to have non-ST elevation ND underwent a diagnostic cardiac catheterization showing severe left main and triple-vessel disease was subsequently transferred over to [facility] at which time she was deemed to be not a candidate for open CABG secondary to multiple comorbidities and peripheral vascular disease she was treated with IV antibiotics and due to renal insufficiency and recurrent anemia subsequently transferred over to rehab patient initially received 6 weeks of IV antibiotics with improvement in renal function was subsequently underwent Impala assisted PCI of the left main multivessel disease which was done about 6 weeks ago. She was subsequently sent back to rehab and subsequently discharged home she was now evaluated in the wound care center room she was noted to have worsening of her lower extremity ulcers and was therefore admitted for further evaluation and treatment at baseline she has not been able to ambulate much and is fairly dependent on activities of daily living on her caregiver which is essentially her son has been compliant with her medications from a cardiovascular standpoint clinically denied having any ischemic symptoms. Review of Systems - Review of Systems Systems not reviewed;Unavailable: Acuity of Condition - Constitutional Constitutional: As Per HPI - EENT Eyes: As Per HPI Ears: As Per HPI Nose/Mouth/Throat: As Per HPI - Breasts Breasts: As Per HPI - Cardiovascular Cardiovascular: As Per HPI - Respiratory Respiratory: As Per HPI - Gastrointestinal Gastrointestinal: As Per HPI - Genitourinary Genitourinary: As Per HPI - Reproductive: Female Reproductive:Female: As Per HPI - Menstruation Menstruation: As Per HPI - Musculoskeletal Musculoskeletal: As Per HPI - Integumentary Integumentary: As Per HPI - Neurological Neurological: As Per HPI - Psychiatric Psychiatric: As Per HPI - Endocrine Endocrine: As Per HPI - Hematologic/Lymphatic Hematologic: As Per HPI Past Patient History - Past Medical History & Family History Past Medical History?: Yes Past Family History: Reviewed and not pertinent - Past Social History Smoking Status: Former Smoker Alcohol: None Drugs: Denies - CARDIAC Hx Pacemaker: No - PULMONARY Hx Asthma: Yes - NEUROLOGICAL Hx Neurological Disorder: No - HEENT Hx HEENT Problems: Yes Other/Comment: Uses eye glasses. - RENAL Hx Chronic Kidney Disease: No - ENDOCRINE/METABOLIC Hx Endocrine Disorders: Yes Hx Diabetes Mellitus Type 2: Yes - HEMATOLOGICAL/ONCOLOGICAL Hx Cancer: No - INTEGUMENTARY Other/Comment: Scaly bilateral lower legs. - MUSCULOSKELETAL/RHEUMATOLOGICAL Hx Musculoskeletal Disorders: Yes Hx Falls: Yes Hx Unsteady Gait: Yes - GASTROINTESTINAL Hx Gastrointestinal Disorders: No - GENITOURINARY/GYNECOLOGICAL Hx Genitourinary Disorders: No - PSYCHIATRIC Hx Psychophysiologic Disorder: No Hx Substance Use: No - SURGICAL HISTORY Hx Mastectomy: No - ANESTHESIA Hx Anesthesia: No Hx Anesthesia Reactions: No Hx Malignant Hyperthermia: No Meds Allergies/Adverse Reactions: Allergies Allergy/AdvReac Type Severity Reaction Status Date / Time No Known Allergies Allergy Verified 09/21/18 05:50 - Medications Medications: Current Medications Acetaminophen (Tylenol 325mg Tab) 650 mg PO Q6 PRN PRN Reason: Pain, moderate (4-7) Last Admin: 09/30/18 21:11 Dose: 650 mg Albuterol/Ipratropium (Duoneb 3 Mg/0.5 Mg (3 Ml) Ud) 3 ml INH RQ6 PRN PRN Reason: Shortness of Breath Last Admin: 09/30/18 09:31 Dose: 3 ml Aspirin (Ecotrin) 81 mg PO DAILY [facility] Last Admin: 09/30/18 09:11 Dose: 81 mg Atorvastatin Calcium (Lipitor) 80 mg PO HS [facility] Last Admin: 09/30/18 21:16 Dose: 80 mg Clopidogrel Bisulfate (Plavix) 75 mg PO DAILY [facility] Last Admin: 09/30/18 09:13 Dose: 75 mg Diphenhydramine HCl (Benadryl) 25 mg PO Q6 PRN PRN Reason: Itching / Pruritus Last Admin: 09/29/18 22:34 Dose: 25 mg Furosemide (Lasix) 40 mg PO DAILY [facility] Last Admin: 09/30/18 09:11 Dose: Not Given Gabapentin (Neurontin) 100 mg PO DAILY [facility] Last Admin: 09/30/18 09:12 Dose: 100 mg Guaifenesin/Dextromethorphan (Robitussin Dm) 10 ml PO Q6 PRN PRN Reason: Cough Last Admin: 09/24/18 00:58 Dose: 10 ml Heparin Sodium (Porcine) (Heparin) 5,000 units SC Q8 [facility]; Protocol Vancomycin HCl 1 gm/ Sodium (Chloride) 250 mls @ 166.667 mls/hr IVPB Q12 [facility]; Protocol Last Admin: 09/25/18 12:12 Dose: 166.667 mls/hr Piperacillin Sod/Tazobactam (Sod 3.375 gm/ Sodium Chloride) 100 mls @ 100 mls/hr IVPB Q8H [facility]; Protocol Last Admin: 09/30/18 14:40 Dose: 100 mls/hr Insulin Human Lispro (Humalog) 0 units SC ACHS [facility]; Protocol Last Admin: 09/30/18 21:58 Dose: Not Given Isosorbide Mononitrate (Imdur Er) 30 mg PO DAILY [facility] Last Admin: 09/30/18 09:11 Dose: Not Given Metoprolol Tartrate (Lopressor) 12.5 mg PO Q12 [facility] Last Admin: 09/30/18 21:13 Dose: 12.5 mg Montelukast Sodium (Singulair) 10 mg PO HS [facility] Last Admin: 09/30/18 21:17 Dose: 10 mg Pantoprazole Sodium (Protonix Ec Tab) 40 mg PO DAILY [facility] Last Admin: 09/30/18 09:13 Dose: Not Given Spironolactone (Aldactone) 25 mg PO DAILY [facility] Last Admin: 09/30/18 09:10 Dose: Not Given Physical Exam - Constitutional Appears: Well - Head Exam Head Exam: ATRAUMATIC, NORMAL INSPECTION, NORMOCEPHALIC - Eye Exam Eye Exam: EOMI, Normal appearance, PERRL Pupil Exam: NORMAL ACCOMODATION, PERRL - ENT Exam ENT Exam: Mucous Membranes Moist, Normal Exam - Neck Exam Neck exam: Positive for: Normal Inspection - Respiratory Exam Respiratory Exam: Clear to Auscultation Bilateral, NORMAL BREATHING PATTERN - Cardiovascular Exam Cardiovascular Exam: REGULAR RHYTHM - GI/Abdominal Exam GI & Abdominal Exam: Normal Bowel Sounds, Soft. absent: Tenderness - Extremities Exam Extremities exam: Positive for: normal inspection - Back Exam Back exam: NORMAL INSPECTION - Neurological Exam Neurological exam: Alert, CN II-XII Intact, Normal Gait, Oriented x3, Reflexes Normal - Psychiatric Exam Psychiatric exam: Normal Affect, Normal Mood - Skin Skin Exam: Dry, Intact, Normal Color, Warm Results - Vital Signs Recent Vital Signs: Last Vital Signs Temp 98.1 F 09/30/18 16:22 Pulse 82 09/30/18 21:13 Resp 18 09/30/18 16:22 BP 130/76 09/30/18 21:13 Pulse Ox 100 09/30/18 16:22 - Labs Result Diagrams: 09/26/18 06:25 09/26/18 06:25 Labs: Laboratory Results - last 24 hr 09/29/18 09/30/18 09/30/18 21:54 05:08 10:45 POC Glucose (mg/dL) 172 H 138 H 237 H 09/30/18 09/30/18 15:39 21:19 POC Glucose (mg/dL) 229 H 229 H Assessment & Plan (1) PVD (peripheral vascular disease) Status: Acute Priority: High (2) CAD (coronary artery disease) Status: Acute (3) HTN (hypertension) Status: Acute (4) Dyslipidemia Status: Acute (5) Diabetic foot ulcer Status: Acute
--- NOTE | 2018-09-30 22:10 | CP.PCM.PN ---
Subjective - Date & Time of Evaluation Date of Evaluation: 09/25/18 Time of Evaluation: 10:00 - Subjective Subjective: wound care abx cassius/pvr pending Objective - Vital Signs/Intake and Output Vital Signs (last 24 hours): Temp Pulse Resp BP Pulse Ox 98.1 F 82 18 130/76 100 09/30/18 16:22 09/30/18 21:13 09/30/18 16:22 09/30/18 21:13 09/30/18 16:22 - Medications Medications: Current Medications Acetaminophen (Tylenol 325mg Tab) 650 mg PO Q6 PRN PRN Reason: Pain, moderate (4-7) Last Admin: 09/30/18 21:11 Dose: 650 mg Albuterol/Ipratropium (Duoneb 3 Mg/0.5 Mg (3 Ml) Ud) 3 ml INH RQ6 PRN PRN Reason: Shortness of Breath Last Admin: 09/30/18 09:31 Dose: 3 ml Aspirin (Ecotrin) 81 mg PO DAILY [facility] Last Admin: 09/30/18 09:11 Dose: 81 mg Atorvastatin Calcium (Lipitor) 80 mg PO HS [facility] Last Admin: 09/30/18 21:16 Dose: 80 mg Clopidogrel Bisulfate (Plavix) 75 mg PO DAILY [facility] Last Admin: 09/30/18 09:13 Dose: 75 mg Diphenhydramine HCl (Benadryl) 25 mg PO Q6 PRN PRN Reason: Itching / Pruritus Last Admin: 09/29/18 22:34 Dose: 25 mg Furosemide (Lasix) 40 mg PO DAILY [facility] Last Admin: 09/30/18 09:11 Dose: Not Given Gabapentin (Neurontin) 100 mg PO DAILY [facility] Last Admin: 09/30/18 09:12 Dose: 100 mg Guaifenesin/Dextromethorphan (Robitussin Dm) 10 ml PO Q6 PRN PRN Reason: Cough Last Admin: 09/24/18 00:58 Dose: 10 ml Heparin Sodium (Porcine) (Heparin) 5,000 units SC Q8 [facility]; Protocol Vancomycin HCl 1 gm/ Sodium (Chloride) 250 mls @ 166.667 mls/hr IVPB Q12 [facility]; Protocol Last Admin: 09/25/18 12:12 Dose: 166.667 mls/hr Piperacillin Sod/Tazobactam (Sod 3.375 gm/ Sodium Chloride) 100 mls @ 100 mls/hr IVPB Q8H [facility]; Protocol Last Admin: 09/30/18 14:40 Dose: 100 mls/hr Insulin Human Lispro (Humalog) 0 units SC ACHS [facility]; Protocol Last Admin: 09/30/18 21:58 Dose: Not Given Isosorbide Mononitrate (Imdur Er) 30 mg PO DAILY [facility] Last Admin: 09/30/18 09:11 Dose: Not Given Metoprolol Tartrate (Lopressor) 12.5 mg PO Q12 [facility] Last Admin: 09/30/18 21:13 Dose: 12.5 mg Montelukast Sodium (Singulair) 10 mg PO HS [facility] Last Admin: 09/30/18 21:17 Dose: 10 mg Pantoprazole Sodium (Protonix Ec Tab) 40 mg PO DAILY [facility] Last Admin: 09/30/18 09:13 Dose: Not Given Spironolactone (Aldactone) 25 mg PO DAILY [facility] Last Admin: 09/30/18 09:10 Dose: Not Given - Labs Labs: 09/26/18 06:25 09/26/18 06:25 - Constitutional Appears: Well - Head Exam Head Exam: ATRAUMATIC, NORMAL INSPECTION, NORMOCEPHALIC - Eye Exam Eye Exam: EOMI, Normal appearance, PERRL Pupil Exam: NORMAL ACCOMODATION, PERRL - ENT Exam ENT Exam: Mucous Membranes Moist, Normal Exam - Neck Exam Neck Exam: Full ROM, Normal Inspection. absent: Lymphadenopathy - Respiratory Exam Respiratory Exam: Clear to Ausculation Bilateral, NORMAL BREATHING PATTERN - Cardiovascular Exam Cardiovascular Exam: REGULAR RHYTHM, +S1, +S2. absent: Murmur - GI/Abdominal Exam GI & Abdominal Exam: Soft, Normal Bowel Sounds. absent: Tenderness - Extremities Exam Extremities Exam: Full ROM, Normal Capillary Refill, Normal Inspection. absent: Joint Swelling, Pedal Edema - Back Exam Back Exam: NORMAL INSPECTION - Neurological Exam Neurological Exam: Alert, Awake, CN II-XII Intact, Normal Gait, Oriented x3 - Psychiatric Exam Psychiatric exam: Normal Affect, Normal Mood - Skin Skin Exam: Dry, Intact, Normal Color, Warm Assessment and Plan (1) PVD (peripheral vascular disease) Assessment & Plan: cassius/pvr cta dapt statins Status: Acute (2) CAD (coronary artery disease) Status: Acute (3) HTN (hypertension) Status: Acute (4) Dyslipidemia Status: Acute (5) Diabetic foot ulcer Status: Acute
--- NOTE | 2018-09-30 22:15 | CP.PCM.PN ---
Subjective - Date & Time of Evaluation Date of Evaluation: 09/26/18 Time of Evaluation: 11:00 - Subjective Subjective: awaiting aortogram once infx resolves Objective - Vital Signs/Intake and Output Vital Signs (last 24 hours): Temp Pulse Resp BP Pulse Ox 98.1 F 82 18 130/76 100 09/30/18 16:22 09/30/18 21:13 09/30/18 16:22 09/30/18 21:13 09/30/18 16:22 - Medications Medications: Current Medications Acetaminophen (Tylenol 325mg Tab) 650 mg PO Q6 PRN PRN Reason: Pain, moderate (4-7) Last Admin: 09/30/18 21:11 Dose: 650 mg Albuterol/Ipratropium (Duoneb 3 Mg/0.5 Mg (3 Ml) Ud) 3 ml INH RQ6 PRN PRN Reason: Shortness of Breath Last Admin: 09/30/18 09:31 Dose: 3 ml Aspirin (Ecotrin) 81 mg PO DAILY [facility] Last Admin: 09/30/18 09:11 Dose: 81 mg Atorvastatin Calcium (Lipitor) 80 mg PO HS [facility] Last Admin: 09/30/18 21:16 Dose: 80 mg Clopidogrel Bisulfate (Plavix) 75 mg PO DAILY [facility] Last Admin: 09/30/18 09:13 Dose: 75 mg Diphenhydramine HCl (Benadryl) 25 mg PO Q6 PRN PRN Reason: Itching / Pruritus Last Admin: 09/29/18 22:34 Dose: 25 mg Furosemide (Lasix) 40 mg PO DAILY [facility] Last Admin: 09/30/18 09:11 Dose: Not Given Gabapentin (Neurontin) 100 mg PO DAILY [facility] Last Admin: 09/30/18 09:12 Dose: 100 mg Guaifenesin/Dextromethorphan (Robitussin Dm) 10 ml PO Q6 PRN PRN Reason: Cough Last Admin: 09/24/18 00:58 Dose: 10 ml Heparin Sodium (Porcine) (Heparin) 5,000 units SC Q8 [facility]; Protocol Vancomycin HCl 1 gm/ Sodium (Chloride) 250 mls @ 166.667 mls/hr IVPB Q12 [facility]; Protocol Last Admin: 09/25/18 12:12 Dose: 166.667 mls/hr Piperacillin Sod/Tazobactam (Sod 3.375 gm/ Sodium Chloride) 100 mls @ 100 mls/hr IVPB Q8H [facility]; Protocol Last Admin: 09/30/18 14:40 Dose: 100 mls/hr Insulin Human Lispro (Humalog) 0 units SC ACHS [facility]; Protocol Last Admin: 09/30/18 21:58 Dose: Not Given Isosorbide Mononitrate (Imdur Er) 30 mg PO DAILY [facility] Last Admin: 09/30/18 09:11 Dose: Not Given Metoprolol Tartrate (Lopressor) 12.5 mg PO Q12 [facility] Last Admin: 09/30/18 21:13 Dose: 12.5 mg Montelukast Sodium (Singulair) 10 mg PO HS [facility] Last Admin: 09/30/18 21:17 Dose: 10 mg Pantoprazole Sodium (Protonix Ec Tab) 40 mg PO DAILY [facility] Last Admin: 09/30/18 09:13 Dose: Not Given Spironolactone (Aldactone) 25 mg PO DAILY [facility] Last Admin: 09/30/18 09:10 Dose: Not Given - Labs Labs: 09/26/18 06:25 09/26/18 06:25 - Constitutional Appears: Well - Head Exam Head Exam: ATRAUMATIC, NORMAL INSPECTION, NORMOCEPHALIC - Eye Exam Eye Exam: EOMI, Normal appearance, PERRL Pupil Exam: NORMAL ACCOMODATION, PERRL - ENT Exam ENT Exam: Mucous Membranes Moist, Normal Exam - Neck Exam Neck Exam: Full ROM, Normal Inspection. absent: Lymphadenopathy - Respiratory Exam Respiratory Exam: Clear to Ausculation Bilateral, NORMAL BREATHING PATTERN - Cardiovascular Exam Cardiovascular Exam: REGULAR RHYTHM, +S1, +S2. absent: Murmur - GI/Abdominal Exam GI & Abdominal Exam: Soft, Normal Bowel Sounds. absent: Tenderness - Extremities Exam Extremities Exam: Full ROM, Normal Capillary Refill, Normal Inspection. absent: Joint Swelling, Pedal Edema - Back Exam Back Exam: NORMAL INSPECTION - Neurological Exam Neurological Exam: Alert, Awake, CN II-XII Intact, Normal Gait, Oriented x3 - Psychiatric Exam Psychiatric exam: Normal Affect, Normal Mood - Skin Skin Exam: Dry, Intact, Normal Color, Warm Assessment and Plan (1) PVD (peripheral vascular disease) Assessment & Plan: cta le dapt statins bb Status: Acute (2) CAD (coronary artery disease) Status: Acute (3) HTN (hypertension) Status: Acute (4) Dyslipidemia Status: Acute (5) Diabetic foot ulcer Status: Acute
--- NOTE | 2018-09-30 22:16 | CP.PCM.PN ---
Subjective - Date & Time of Evaluation Date of Evaluation: 09/27/18 Time of Evaluation: 14:00 - Subjective Subjective: le discomfort on abx Objective - Vital Signs/Intake and Output Vital Signs (last 24 hours): Temp Pulse Resp BP Pulse Ox 98.1 F 82 18 130/76 100 09/30/18 16:22 09/30/18 21:13 09/30/18 16:22 09/30/18 21:13 09/30/18 16:22 - Medications Medications: Current Medications Acetaminophen (Tylenol 325mg Tab) 650 mg PO Q6 PRN PRN Reason: Pain, moderate (4-7) Last Admin: 09/30/18 21:11 Dose: 650 mg Albuterol/Ipratropium (Duoneb 3 Mg/0.5 Mg (3 Ml) Ud) 3 ml INH RQ6 PRN PRN Reason: Shortness of Breath Last Admin: 09/30/18 09:31 Dose: 3 ml Aspirin (Ecotrin) 81 mg PO DAILY [facility] Last Admin: 09/30/18 09:11 Dose: 81 mg Atorvastatin Calcium (Lipitor) 80 mg PO HS [facility] Last Admin: 09/30/18 21:16 Dose: 80 mg Clopidogrel Bisulfate (Plavix) 75 mg PO DAILY [facility] Last Admin: 09/30/18 09:13 Dose: 75 mg Diphenhydramine HCl (Benadryl) 25 mg PO Q6 PRN PRN Reason: Itching / Pruritus Last Admin: 09/29/18 22:34 Dose: 25 mg Furosemide (Lasix) 40 mg PO DAILY [facility] Last Admin: 09/30/18 09:11 Dose: Not Given Gabapentin (Neurontin) 100 mg PO DAILY [facility] Last Admin: 09/30/18 09:12 Dose: 100 mg Guaifenesin/Dextromethorphan (Robitussin Dm) 10 ml PO Q6 PRN PRN Reason: Cough Last Admin: 09/24/18 00:58 Dose: 10 ml Heparin Sodium (Porcine) (Heparin) 5,000 units SC Q8 [facility]; Protocol Vancomycin HCl 1 gm/ Sodium (Chloride) 250 mls @ 166.667 mls/hr IVPB Q12 [facility]; Protocol Last Admin: 09/25/18 12:12 Dose: 166.667 mls/hr Piperacillin Sod/Tazobactam (Sod 3.375 gm/ Sodium Chloride) 100 mls @ 100 mls/hr IVPB Q8H [facility]; Protocol Last Admin: 09/30/18 14:40 Dose: 100 mls/hr Insulin Human Lispro (Humalog) 0 units SC ACHS [facility]; Protocol Last Admin: 09/30/18 21:58 Dose: Not Given Isosorbide Mononitrate (Imdur Er) 30 mg PO DAILY [facility] Last Admin: 09/30/18 09:11 Dose: Not Given Metoprolol Tartrate (Lopressor) 12.5 mg PO Q12 [facility] Last Admin: 09/30/18 21:13 Dose: 12.5 mg Montelukast Sodium (Singulair) 10 mg PO HS [facility] Last Admin: 09/30/18 21:17 Dose: 10 mg Pantoprazole Sodium (Protonix Ec Tab) 40 mg PO DAILY [facility] Last Admin: 09/30/18 09:13 Dose: Not Given Spironolactone (Aldactone) 25 mg PO DAILY [facility] Last Admin: 09/30/18 09:10 Dose: Not Given - Labs Labs: 09/26/18 06:25 09/26/18 06:25 - Constitutional Appears: Well - Head Exam Head Exam: ATRAUMATIC, NORMAL INSPECTION, NORMOCEPHALIC - Eye Exam Eye Exam: EOMI, Normal appearance, PERRL Pupil Exam: NORMAL ACCOMODATION, PERRL - ENT Exam ENT Exam: Mucous Membranes Moist, Normal Exam - Neck Exam Neck Exam: Full ROM, Normal Inspection. absent: Lymphadenopathy - Respiratory Exam Respiratory Exam: Clear to Ausculation Bilateral, NORMAL BREATHING PATTERN - Cardiovascular Exam Cardiovascular Exam: REGULAR RHYTHM, +S1, +S2. absent: Murmur - GI/Abdominal Exam GI & Abdominal Exam: Soft, Normal Bowel Sounds. absent: Tenderness - Extremities Exam Extremities Exam: Full ROM, Normal Capillary Refill, Normal Inspection. absent: Joint Swelling, Pedal Edema - Back Exam Back Exam: NORMAL INSPECTION - Neurological Exam Neurological Exam: Alert, Awake, CN II-XII Intact, Normal Gait, Oriented x3 - Psychiatric Exam Psychiatric exam: Normal Affect, Normal Mood - Skin Skin Exam: Dry, Intact, Normal Color, Warm Assessment and Plan (1) PVD (peripheral vascular disease) Assessment & Plan: cont dapt cont bb cont statins CTA LE Status: Acute (2) CAD (coronary artery disease) Status: Acute (3) HTN (hypertension) Status: Acute (4) Dyslipidemia Status: Acute (5) Diabetic foot ulcer Status: Acute
--- NOTE | 2018-09-30 22:18 | CP.PCM.PN ---
Subjective - Date & Time of Evaluation Date of Evaluation: 09/30/18 Time of Evaluation: 11:00 - Subjective Subjective: CTA today Objective - Vital Signs/Intake and Output Vital Signs (last 24 hours): Temp Pulse Resp BP Pulse Ox 98.1 F 82 18 130/76 100 09/30/18 16:22 09/30/18 21:13 09/30/18 16:22 09/30/18 21:13 09/30/18 16:22 - Medications Medications: Current Medications Acetaminophen (Tylenol 325mg Tab) 650 mg PO Q6 PRN PRN Reason: Pain, moderate (4-7) Last Admin: 09/30/18 21:11 Dose: 650 mg Albuterol/Ipratropium (Duoneb 3 Mg/0.5 Mg (3 Ml) Ud) 3 ml INH RQ6 PRN PRN Reason: Shortness of Breath Last Admin: 09/30/18 09:31 Dose: 3 ml Aspirin (Ecotrin) 81 mg PO DAILY [facility] Last Admin: 09/30/18 09:11 Dose: 81 mg Atorvastatin Calcium (Lipitor) 80 mg PO HS [facility] Last Admin: 09/30/18 21:16 Dose: 80 mg Clopidogrel Bisulfate (Plavix) 75 mg PO DAILY [facility] Last Admin: 09/30/18 09:13 Dose: 75 mg Diphenhydramine HCl (Benadryl) 25 mg PO Q6 PRN PRN Reason: Itching / Pruritus Last Admin: 09/29/18 22:34 Dose: 25 mg Furosemide (Lasix) 40 mg PO DAILY [facility] Last Admin: 09/30/18 09:11 Dose: Not Given Gabapentin (Neurontin) 100 mg PO DAILY [facility] Last Admin: 09/30/18 09:12 Dose: 100 mg Guaifenesin/Dextromethorphan (Robitussin Dm) 10 ml PO Q6 PRN PRN Reason: Cough Last Admin: 09/24/18 00:58 Dose: 10 ml Heparin Sodium (Porcine) (Heparin) 5,000 units SC Q8 [facility]; Protocol Vancomycin HCl 1 gm/ Sodium (Chloride) 250 mls @ 166.667 mls/hr IVPB Q12 [facility]; Protocol Last Admin: 09/25/18 12:12 Dose: 166.667 mls/hr Piperacillin Sod/Tazobactam (Sod 3.375 gm/ Sodium Chloride) 100 mls @ 100 mls/hr IVPB Q8H [facility]; Protocol Last Admin: 09/30/18 14:40 Dose: 100 mls/hr Insulin Human Lispro (Humalog) 0 units SC ACHS [facility]; Protocol Last Admin: 09/30/18 21:58 Dose: Not Given Isosorbide Mononitrate (Imdur Er) 30 mg PO DAILY [facility] Last Admin: 09/30/18 09:11 Dose: Not Given Metoprolol Tartrate (Lopressor) 12.5 mg PO Q12 [facility] Last Admin: 09/30/18 21:13 Dose: 12.5 mg Montelukast Sodium (Singulair) 10 mg PO HS [facility] Last Admin: 09/30/18 21:17 Dose: 10 mg Pantoprazole Sodium (Protonix Ec Tab) 40 mg PO DAILY [facility] Last Admin: 09/30/18 09:13 Dose: Not Given Spironolactone (Aldactone) 25 mg PO DAILY [facility] Last Admin: 09/30/18 09:10 Dose: Not Given - Labs Labs: 09/26/18 06:25 09/26/18 06:25 - Constitutional Appears: Well - Head Exam Head Exam: ATRAUMATIC, NORMAL INSPECTION, NORMOCEPHALIC - Eye Exam Eye Exam: EOMI, Normal appearance, PERRL Pupil Exam: NORMAL ACCOMODATION, PERRL - ENT Exam ENT Exam: Mucous Membranes Moist, Normal Exam - Neck Exam Neck Exam: Full ROM, Normal Inspection. absent: Lymphadenopathy - Respiratory Exam Respiratory Exam: Clear to Ausculation Bilateral, NORMAL BREATHING PATTERN - Cardiovascular Exam Cardiovascular Exam: REGULAR RHYTHM, +S1, +S2. absent: Murmur - GI/Abdominal Exam GI & Abdominal Exam: Soft, Normal Bowel Sounds. absent: Tenderness - Extremities Exam Extremities Exam: Full ROM, Normal Capillary Refill, Normal Inspection. absent: Joint Swelling, Pedal Edema - Back Exam Back Exam: NORMAL INSPECTION - Neurological Exam Neurological Exam: Alert, Awake, CN II-XII Intact, Normal Gait, Oriented x3 - Psychiatric Exam Psychiatric exam: Normal Affect, Normal Mood - Skin Skin Exam: Dry, Intact, Normal Color, Warm Assessment and Plan (1) PVD (peripheral vascular disease) Status: Acute (2) CAD (coronary artery disease) Status: Acute (3) HTN (hypertension) Status: Acute (4) Dyslipidemia Status: Acute (5) Diabetic foot ulcer Status: Acute
--- NOTE | 2018-10-01 00:01 | CP.PCM.PN ---
Subjective - Date & Time of Evaluation Date of Evaluation: 09/30/18 Time of Evaluation: 23:15 Objective - Vital Signs/Intake and Output Vital Signs (last 24 hours): Temp Pulse Resp BP Pulse Ox 98.1 F 82 18 130/76 100 09/30/18 16:22 09/30/18 21:13 09/30/18 16:22 09/30/18 21:13 09/30/18 16:22 - Medications Medications: Current Medications Acetaminophen (Tylenol 325mg Tab) 650 mg PO Q6 PRN PRN Reason: Pain, moderate (4-7) Last Admin: 09/30/18 21:11 Dose: 650 mg Albuterol/Ipratropium (Duoneb 3 Mg/0.5 Mg (3 Ml) Ud) 3 ml INH RQ6 PRN PRN Reason: Shortness of Breath Last Admin: 09/30/18 09:31 Dose: 3 ml Aspirin (Ecotrin) 81 mg PO DAILY [facility] Last Admin: 09/30/18 09:11 Dose: 81 mg Atorvastatin Calcium (Lipitor) 80 mg PO HS [facility] Last Admin: 09/30/18 21:16 Dose: 80 mg Clopidogrel Bisulfate (Plavix) 75 mg PO DAILY [facility] Last Admin: 09/30/18 09:13 Dose: 75 mg Diphenhydramine HCl (Benadryl) 25 mg PO Q6 PRN PRN Reason: Itching / Pruritus Last Admin: 09/29/18 22:34 Dose: 25 mg Furosemide (Lasix) 40 mg PO DAILY [facility] Last Admin: 09/30/18 09:11 Dose: Not Given Gabapentin (Neurontin) 100 mg PO DAILY [facility] Last Admin: 09/30/18 09:12 Dose: 100 mg Guaifenesin/Dextromethorphan (Robitussin Dm) 10 ml PO Q6 PRN PRN Reason: Cough Last Admin: 09/24/18 00:58 Dose: 10 ml Heparin Sodium (Porcine) (Heparin) 5,000 units SC Q8 [facility]; Protocol Vancomycin HCl 1 gm/ Sodium (Chloride) 250 mls @ 166.667 mls/hr IVPB Q12 [facility]; Protocol Last Admin: 09/30/18 22:00 Dose: 166.667 mls/hr Piperacillin Sod/Tazobactam (Sod 3.375 gm/ Sodium Chloride) 100 mls @ 100 mls/hr IVPB Q8H [facility]; Protocol Last Admin: 09/30/18 14:40 Dose: 100 mls/hr Insulin Human Lispro (Humalog) 0 units SC ACHS [facility]; Protocol Last Admin: 09/30/18 21:58 Dose: Not Given Isosorbide Mononitrate (Imdur Er) 30 mg PO DAILY [facility] Last Admin: 09/30/18 09:11 Dose: Not Given Metoprolol Tartrate (Lopressor) 12.5 mg PO Q12 [facility] Last Admin: 09/30/18 21:13 Dose: 12.5 mg Montelukast Sodium (Singulair) 10 mg PO HS [facility] Last Admin: 09/30/18 21:17 Dose: 10 mg Pantoprazole Sodium (Protonix Ec Tab) 40 mg PO DAILY [facility] Last Admin: 09/30/18 09:13 Dose: Not Given Spironolactone (Aldactone) 25 mg PO DAILY [facility] Last Admin: 09/30/18 09:10 Dose: Not Given - Labs Labs: 09/26/18 06:25 09/26/18 06:25 Assessment and Plan (1) 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
[2018-10-01] MEDS: Piperacillin/Tazobact 3.375 GM in Sodium Chloride 0.9% 100 ML IVPB SCH ×4 (00:18→22:40)
[2018-10-01 06:45] LABS: HEMOGLOBIN 9.4 g/dL (12.0-16.0); MEAN CELL VOLUME 89.5 fl (81.0-99.0); MEAN CORPUSCULAR HEMOGLOBIN 28.4 pg (27.0-31.0); MEAN CORPUSCULAR HGB CONC 31.8 g/dL (33.0-37.0); RBC 3.3 Mil/uL (3.80-5.20); RED CELL DISTRIBUTION WIDTH 14.3 % (11.5-14.5); WHITE BLOOD COUNT 5.5 K/uL (4.8-10.8)
[2018-10-01 07:07] LABS: ALB/GLOB RATIO 0.9 (1.0-2.1); ALT/SGPT 23 U/L (9-52); AST/SGOT 19 U/L (14-36); BLOOD UREA NITROGEN 15 mg/dl (7-17); CALCIUM 8.6 mg/dL (8.4-10.2); GFR NON-AFRICAN AMERICAN > 60
--- NOTE | 2018-10-01 07:18 | CP.PCM.PN ---
Subjective - Date & Time of Evaluation Date of Evaluation: 10/01/18 Time of Evaluation: 07:07 - Subjective Subjective: having acid reflux this am Objective - Vital Signs/Intake and Output Vital Signs (last 24 hours): Temp Pulse Resp BP Pulse Ox 97.9 F 77 19 114/69 99 10/01/18 00:38 10/01/18 00:38 10/01/18 00:38 10/01/18 00:38 10/01/18 00:38 - Medications Medications: Current Medications Acetaminophen (Tylenol 325mg Tab) 650 mg PO Q6 PRN PRN Reason: Pain, moderate (4-7) Last Admin: 09/30/18 21:11 Dose: 650 mg Albuterol/Ipratropium (Duoneb 3 Mg/0.5 Mg (3 Ml) Ud) 3 ml INH RQ6 PRN PRN Reason: Shortness of Breath Last Admin: 09/30/18 09:31 Dose: 3 ml Aspirin (Ecotrin) 81 mg PO DAILY [facility] Last Admin: 09/30/18 09:11 Dose: 81 mg Atorvastatin Calcium (Lipitor) 80 mg PO HS [facility] Last Admin: 09/30/18 21:16 Dose: 80 mg Clopidogrel Bisulfate (Plavix) 75 mg PO DAILY [facility] Last Admin: 09/30/18 09:13 Dose: 75 mg Diphenhydramine HCl (Benadryl) 25 mg PO Q6 PRN PRN Reason: Itching / Pruritus Last Admin: 09/29/18 22:34 Dose: 25 mg Furosemide (Lasix) 40 mg PO DAILY [facility] Last Admin: 09/30/18 09:11 Dose: Not Given Gabapentin (Neurontin) 100 mg PO DAILY [facility] Last Admin: 09/30/18 09:12 Dose: 100 mg Guaifenesin/Dextromethorphan (Robitussin Dm) 10 ml PO Q6 PRN PRN Reason: Cough Last Admin: 09/24/18 00:58 Dose: 10 ml Heparin Sodium (Porcine) (Heparin) 5,000 units SC Q8 [facility]; Protocol Last Admin: 10/01/18 02:09 Dose: 5,000 units Vancomycin HCl 1 gm/ Sodium (Chloride) 250 mls @ 166.667 mls/hr IVPB Q12 [facility]; Protocol Last Admin: 09/30/18 22:00 Dose: 166.667 mls/hr Piperacillin Sod/Tazobactam (Sod 3.375 gm/ Sodium Chloride) 100 mls @ 100 mls/hr IVPB Q8H [facility]; Protocol Last Admin: 10/01/18 06:38 Dose: 100 mls/hr Insulin Human Lispro (Humalog) 0 units SC ACHS [facility]; Protocol Last Admin: 09/30/18 21:58 Dose: Not Given Isosorbide Mononitrate (Imdur Er) 30 mg PO DAILY [facility] Last Admin: 09/30/18 09:11 Dose: Not Given Metoprolol Tartrate (Lopressor) 12.5 mg PO Q12 [facility] Last Admin: 09/30/18 21:13 Dose: 12.5 mg Montelukast Sodium (Singulair) 10 mg PO HS [facility] Last Admin: 09/30/18 21:17 Dose: 10 mg Pantoprazole Sodium (Protonix Ec Tab) 40 mg PO DAILY [facility] Last Admin: 09/30/18 09:13 Dose: Not Given Spironolactone (Aldactone) 25 mg PO DAILY [facility] Last Admin: 09/30/18 09:10 Dose: Not Given - Labs Labs: 10/01/18 06:36 09/26/18 06:25 - Constitutional Appears: Well - Head Exam Head Exam: ATRAUMATIC, NORMAL INSPECTION, NORMOCEPHALIC - Eye Exam Eye Exam: EOMI, Normal appearance, PERRL Pupil Exam: NORMAL ACCOMODATION, PERRL - ENT Exam ENT Exam: Mucous Membranes Moist, Normal Exam - Neck Exam Neck Exam: Full ROM, Normal Inspection. absent: Lymphadenopathy - Respiratory Exam Respiratory Exam: Clear to Ausculation Bilateral, NORMAL BREATHING PATTERN - Cardiovascular Exam Cardiovascular Exam: REGULAR RHYTHM, +S1, +S2. absent: Murmur - GI/Abdominal Exam GI & Abdominal Exam: Soft, Normal Bowel Sounds. absent: Tenderness - Extremities Exam Extremities Exam: Full ROM, Normal Capillary Refill, Normal Inspection. absent: Joint Swelling, Pedal Edema - Back Exam Back Exam: NORMAL INSPECTION - Neurological Exam Neurological Exam: Alert, Awake, CN II-XII Intact, Normal Gait, Oriented x3 - Psychiatric Exam Psychiatric exam: Normal Affect, Normal Mood - Skin Skin Exam: Dry, Intact, Normal Color, Warm Assessment and Plan (1) PVD (peripheral vascular disease) Assessment & Plan: severe bilateral SFA disease plan for peripheral angiogram tomorrow at [facility] npo p mn cont dapt cont statins bb Status: Acute (2) CAD (coronary artery disease) Status: Acute (3) HTN (hypertension) Status: Acute (4) Dyslipidemia Status: Acute (5) Diabetic foot ulcer Status: Acute
[2018-10-01] MEDS: Pantoprazole 40 mg EC Tab PO SCH (08:27)
[2018-10-01] MEDS: Insulin Lispro (humaLOG) 100 Units/ml Inj SC SCH ×4 (10:15→22:53)
--- NOTE | 2018-10-01 10:46 | CP.PCM.PN ---
Subjective - Date & Time of Evaluation Date of Evaluation: 10/01/18 Time of Evaluation: 09:00 - Subjective Subjective: afeb labs noted cont rx Objective - Vital Signs/Intake and Output Vital Signs (last 24 hours): Temp Pulse Resp BP Pulse Ox 98.1 F 66 20 114/71 99 10/01/18 07:53 10/01/18 10:14 10/01/18 07:53 10/01/18 10:14 10/01/18 07:53 - Medications Medications: Current Medications Acetaminophen (Tylenol 325mg Tab) 650 mg PO Q6 PRN PRN Reason: Pain, moderate (4-7) Last Admin: 09/30/18 21:11 Dose: 650 mg Albuterol/Ipratropium (Duoneb 3 Mg/0.5 Mg (3 Ml) Ud) 3 ml INH RQ6 PRN PRN Reason: Shortness of Breath Last Admin: 09/30/18 09:31 Dose: 3 ml Aspirin (Ecotrin) 81 mg PO DAILY [facility] Last Admin: 10/01/18 10:12 Dose: 81 mg Atorvastatin Calcium (Lipitor) 80 mg PO HS [facility] Last Admin: 09/30/18 21:16 Dose: 80 mg Clopidogrel Bisulfate (Plavix) 75 mg PO DAILY [facility] Last Admin: 10/01/18 10:12 Dose: 75 mg Diphenhydramine HCl (Benadryl) 25 mg PO Q6 PRN PRN Reason: Itching / Pruritus Last Admin: 09/29/18 22:34 Dose: 25 mg Furosemide (Lasix) 40 mg PO DAILY [facility] Last Admin: 10/01/18 10:12 Dose: 40 mg Gabapentin (Neurontin) 100 mg PO DAILY [facility] Last Admin: 10/01/18 10:12 Dose: 100 mg Guaifenesin/Dextromethorphan (Robitussin Dm) 10 ml PO Q6 PRN PRN Reason: Cough Last Admin: 09/24/18 00:58 Dose: 10 ml Heparin Sodium (Porcine) (Heparin) 5,000 units SC Q8 [facility]; Protocol Last Admin: 10/01/18 10:11 Dose: 5,000 units Vancomycin HCl 1 gm/ Sodium (Chloride) 250 mls @ 166.667 mls/hr IVPB Q12 [facility]; Protocol Last Admin: 09/30/18 22:00 Dose: 166.667 mls/hr Piperacillin Sod/Tazobactam (Sod 3.375 gm/ Sodium Chloride) 100 mls @ 100 mls/hr IVPB Q8H [facility]; Protocol Last Admin: 10/01/18 06:38 Dose: 100 mls/hr Insulin Human Lispro (Humalog) 0 units SC ACHS [facility]; Protocol Last Admin: 10/01/18 10:15 Dose: 2 u Isosorbide Mononitrate (Imdur Er) 30 mg PO DAILY [facility] Last Admin: 10/01/18 10:12 Dose: 30 mg Metoprolol Tartrate (Lopressor) 12.5 mg PO Q12 [facility] Last Admin: 10/01/18 10:14 Dose: 12.5 mg Montelukast Sodium (Singulair) 10 mg PO HS [facility] Last Admin: 09/30/18 21:17 Dose: 10 mg Pantoprazole Sodium (Protonix Ec Tab) 40 mg PO DAILY [facility] Last Admin: 10/01/18 08:27 Dose: 40 mg Spironolactone (Aldactone) 25 mg PO DAILY [facility] Last Admin: 10/01/18 10:14 Dose: 25 mg - Labs Labs: 10/01/18 06:36 10/01/18 06:36 - Constitutional Appears: Non-toxic, Chronically Ill - Head Exam Head Exam: NORMOCEPHALIC - Eye Exam Eye Exam: absent: Scleral icterus - ENT Exam ENT Exam: Mucous Membranes Dry - Neck Exam Neck Exam: absent: Thyromegaly - Respiratory Exam Respiratory Exam: Decreased Breath Sounds - Cardiovascular Exam Cardiovascular Exam: REGULAR RHYTHM - GI/Abdominal Exam GI & Abdominal Exam: Distended Assessment and Plan (1) Diabetic foot ulcer Status: Acute (2) Type 1 diabetes mellitus with diabetic foot infection Status: Acute
--- NOTE | 2018-10-01 12:00 | CP.PCM.PN ---
Subjective - Date & Time of Evaluation Date of Evaluation: 10/01/18 Time of Evaluation: 11:57 - Subjective Subjective: Podiatry progress note for Dr. Smith 72F seen and evaluated at bedside for bilateral lower extremity erythema, edema and ulcerations. Seen resting comfortably. She denies any acute events overnight. Denies N/V/F/SOB/CP/Chills. Denies any other pedal complaints. Objective - Vital Signs/Intake and Output Vital Signs (last 24 hours): Temp Pulse Resp BP Pulse Ox 98.1 F 66 20 114/71 99 10/01/18 07:53 10/01/18 10:14 10/01/18 07:53 10/01/18 10:14 10/01/18 07:53 - Medications Medications: Current Medications Acetaminophen (Tylenol 325mg Tab) 650 mg PO Q6 PRN PRN Reason: Pain, moderate (4-7) Last Admin: 09/30/18 21:11 Dose: 650 mg Albuterol/Ipratropium (Duoneb 3 Mg/0.5 Mg (3 Ml) Ud) 3 ml INH RQ6 PRN PRN Reason: Shortness of Breath Last Admin: 09/30/18 09:31 Dose: 3 ml Aspirin (Ecotrin) [address] [facility] Last Admin: 10/01/18 10:12 Dose: 81 mg Atorvastatin Calcium (Lipitor) [address] [facility] Last Admin: 09/30/18 21:16 Dose: 80 mg Clopidogrel Bisulfate (Plavix) [address] [facility] Last Admin: 10/01/18 10:12 Dose: 75 mg Diphenhydramine HCl (Benadryl) 25 mg PO Q6 PRN PRN Reason: Itching / Pruritus Last Admin: 09/29/18 22:34 Dose: 25 mg Furosemide (Lasix) [address] [facility] Last Admin: 10/01/18 10:12 Dose: 40 mg Gabapentin (Neurontin) [address] [facility] Last Admin: 10/01/18 10:12 Dose: 100 mg Guaifenesin/Dextromethorphan (Robitussin Dm) 10 ml PO Q6 PRN PRN Reason: Cough Last Admin: 09/24/18 00:58 Dose: 10 ml Heparin Sodium (Porcine) (Heparin) 5,000 units SC Q8 [facility]; Protocol Last Admin: 10/01/18 10:11 Dose: 5,000 units Vancomycin HCl 1 gm/ Sodium (Chloride) 250 mls @ 166.667 mls/hr IVPB Q12 [facility]; Protocol Last Admin: 10/01/18 11:14 Dose: 166.667 mls/hr Piperacillin Sod/Tazobactam (Sod 3.375 gm/ Sodium Chloride) 100 mls @ 100 mls/hr IVPB Q8H [facility]; Protocol Last Admin: 10/01/18 06:38 Dose: 100 mls/hr Insulin Human Lispro (Humalog) 0 units SC ACHS [facility]; Protocol Last Admin: 10/01/18 10:15 Dose: 2 u Isosorbide Mononitrate (Imdur Er) [address] [facility] Last Admin: 10/01/18 10:12 Dose: 30 mg Metoprolol Tartrate (Lopressor) 12.[address] [facility] Last Admin: 10/01/18 10:14 Dose: 12.5 mg Montelukast Sodium (Singulair) [address] [facility] Last Admin: 09/30/18 21:17 Dose: 10 mg Pantoprazole Sodium (Protonix Ec Tab) [address] [facility] Last Admin: 10/01/18 08:27 Dose: 40 mg Spironolactone (Aldactone) [address] [facility] Last Admin: 10/01/18 10:14 Dose: 25 mg - Labs Labs: 10/01/18 06:36 10/01/18 06:36 - Constitutional Appears: Well, Non-toxic, No Acute Distress - Head Exam Head Exam: ATRAUMATIC, NORMOCEPHALIC - Extremities Exam Additional comments: B/L lower extremtiy focused exam: Vasc: DP/PT pulses are non-palpable bilaterally, Cap refill time < 3 sec to all digits, TG warm to warm, +2 edema noted extending from foot proximally to the mid leg level bilaterally Ortho: mild pain on palpation to all wounds; pain upon ROM bilateral LE. No pain on palpation of the calf b/l Neuro: Gross sensation intact, protective sensation absent Derm: LLE: Superficial ulceration noted to posterior aspect of inferior 1/3 of calf, serous drainage present, no malodor, no purulence, no tunneling no tracking. superficial bullae noted to the anterior aspect of the proximal left leg and central plantar aspect of the left rearfoot, mild weeping appreciated circumferentially to midleg. DTI to left heel appreciated RLE: Circular ulceration measuring approximately 5x4.5 extending into subcutaneous tissue noted to R heel with fibrous base, minimal malodor, no drainage, no purulence appreciated. No tunneling or tracking appreciated. No probe to bone. No evidence of cellulitis or superficial infection. - Neurological Exam Neurological Exam: Alert, Awake, Oriented x3 - Psychiatric Exam Psychiatric exam: Normal Affect, Normal Mood Assessment and Plan - Assessment and Plan (Free Text) Assessment: 72F with bilateral lower extremity erythema, edema and ulcerations Plan: Patient seen and evaluated Discussed in detail with Dr. Smith Afebrile, absent leukocytosis R foot x-rays; moderate soft tissue swelling, no OM or fracture, diffuse os teopenia R wound culture: beta hemolytic group strep B Wounds cleansed with sterile saline, dressed with xeroform and DSD MRI: possible OM of the metatarsals, tarsal bones, hindfoot bones, distal tibia and fibular WENDI/PVR - RIGHT - evidence of moderately hemodynamically significant arterial insufficiency in RLE, LEFT - same Vascular consult, Dr. Jimenez - peripheral angiogram at [facility] [place] Infectious disease consult ordered; recs appreciated PICC line placed Multipodus boots worn at all times Will continue to follow
--- NOTE | 2018-10-01 14:12 | CT ---
Date of service: 09/30/2018 PROCEDURE: CT Angiography Abdomen, Pelvis and Lower Extremity with Contrast HISTORY: Osteomyelitis COMPARISON: None available. TECHNIQUE: Technique: CT angiography of the abdomen, pelvis and bilateral lower extremities performed in the arterial phase of enhancement. Coronal and sagittal reformats, and well as rotating MIP images of the vessels generated at the workstation. Intravenous contrast dose: 150 milliliters Visipaque 320 Radiation dose: Total exam DLP = 1275.98 mGy-cm. This CT exam was performed using one or more of the following dose reduction techniques: Automated exposure control, adjustment of the mA and/or kV according to patient size, and/or use of iterative reconstruction technique. FINDINGS: CT ANGIOGRAPHY: ABDOMINAL AORTA:: Moderate calcific plaque in the aorta without stenosis or aneurysm. MAJOR AORTIC BRANCHES: Celiac [place]: Moderate calcific plaque at the origin of the celiac artery unable to assess for stenosis. Superior mesenteric artery: Unremarkable. Inferior mesenteric artery: Unremarkable. Renal arteries: Unremarkable. PELVIC ARTERIES: Right Common Iliac: Unremarkable. Right External Iliac: Unremarkable. Right Internal Iliac: Unremarkable. Left Common Iliac: Unremarkable. Left External Iliac: Unremarkable. Left Internal Iliac: Unremarkable. RIGHT LOWER EXTREMITY ARTERIES: Right Common Femoral: Unremarkable. Right Superficial Femoral: Is moderate plaque throughout the SFA moderate stenosis in distal segment. Right Profunda Femoris: Unremarkable. Right Popliteal:Unremarkable. Right Anterior Tibial: Unremarkable. Right Tibioperoneal Trunk: Unremarkable. Right Posterior Tibial: Unremarkable. Right Peroneal: Areas of moderate stenosis throughout the peroneal artery and possible severe stenosis or occlusion distal segment. Right dorsalis pedis : Unremarkable. LEFT LOWER EXTREMITY ARTERIES: Left Common Femoral: Unremarkable. Left Superficial Femoral: Moderate plaque throughout the SFA with possible areas of mild stenosis in distal segment. Left Profunda Femoris: Unremarkable. Left Popliteal: Unremarkable. Left Anterior Tibial: Occluded at the proximal segment with no definite reconstitution. Left Tibioperoneal Trunk: Unremarkable. Left Posterior Tibial: Unremarkable. Left Peroneal: Unremarkable. Left Dorsalis pedis: Unremarkable. NON-ANGIOGRAPHIC ASPECT OF THE EXAM: LOWER THORAX: Trace bilateral effusion. LIVER: Unremarkable. No gross lesion or ductal dilatation. GALLBLADDER AND BILE DUCTS: Unremarkable. PANCREAS: Unremarkable. No gross lesion or ductal dilatation. SPLEEN: Unremarkable. ADRENALS: Unremarkable. No mass. KIDNEYS AND URETERS: Unremarkable. No hydronephrosis. No solid mass. STOMACH AND BOWEL: Limited without PO contrast. No obstruction. No gross mural thickening. APPENDIX: Not visualized. PERITONEUM: Unremarkable. No free fluid. No free air. LYMPH NODES: Unremarkable. No enlarged lymph nodes. BLADDER: Unremarkable. REPRODUCTIVE: Unremarkable. BONES: Degenerative changes spine. OTHER FINDINGS: None. IMPRESSION: CT ANGIOGRAM ABDOMEN/PELVIS: There is moderate calcific plaque throughout the abdominal aorta and major branches without significant stenosis. RIGHT LOWER EXTREMITY CT ANGIOGRAM: 1. Femoral artery and profunda femoral artery are normal. 2. The SFA has moderate calcific plaque throughout with possible [id number] stenosis in distal segment. 3. Popliteal artery is unremarkable. 4. Runoff shows a patent anterior tibial artery posterior tibial artery. The peroneal artery has multiple areas of moderate stenosis within the mid and distal segments. LEFT LOWER EXTREMITY CT ANGIOGRAM: 1. Common femoral and profunda femoral artery are normal. 2. There is moderate calcific plaque throughout the SFA with areas of mild stenosis in distal segment 3. Popliteal artery is unremarkable. 4. Runoff shows occlusion of the anterior tibial artery after the proximal segment with no definite reconstitution. Peroneal and posterior tibial artery patent.
[2018-10-02] MEDS: Piperacillin/Tazobact 3.375 GM in Sodium Chloride 0.9% 100 ML IVPB SCH ×3 (06:09→22:34)
[2018-10-02] MEDS: Insulin Lispro (humaLOG) 100 Units/ml Inj SC SCH ×4 (08:30→22:41)
--- NOTE | 2018-10-02 08:37 | CT ---
Date of service: 10/01/2018 PROCEDURE: CT HEAD WITHOUT CONTRAST. HISTORY: weakness COMPARISON: 03/30/2018 TECHNIQUE: Axial computed tomography images were obtained through the head/brain without intravenous contrast. Radiation dose: Total exam DLP = 796 mGy-cm. This CT exam was performed using one or more of the following dose reduction techniques: Automated exposure control, adjustment of the mA and/or kV according to patient size, and/or use of iterative reconstruction technique. FINDINGS: HEMORRHAGE: No intracranial hemorrhage. BRAIN: No mass effect or edema. No significant appearing atrophy or chronic microvascular ischemic changes. Some hypodensity projects over the mikki-this is believe did secondary to artifact VENTRICLES: Unremarkable. No hydrocephalus. CALVARIUM: Unremarkable. PARANASAL SINUSES: Unremarkable as visualized. No significant inflammatory changes. MASTOID AIR CELLS: Unremarkable as visualized. No inflammatory changes. OTHER FINDINGS: None. IMPRESSION: No intracranial hemorrhage or mass effect. Unremarkable CT Concordant results (preliminary interpretation) provided by [facility].
[2018-10-02 08:49] LABS: HEMOGLOBIN 9.3 g/dL (12.0-16.0); MEAN CELL VOLUME 91.8 fl (81.0-99.0); MEAN CORPUSCULAR HEMOGLOBIN 29.1 pg (27.0-31.0); MEAN CORPUSCULAR HGB CONC 31.7 g/dL (33.0-37.0); RBC 3.19 Mil/uL (3.80-5.20); RED CELL DISTRIBUTION WIDTH 14.5 % (11.5-14.5); WHITE BLOOD COUNT 6.4 K/uL (4.8-10.8)
[2018-10-02 09:02] LABS: BLOOD UREA NITROGEN 16 mg/dl (7-17); CALCIUM 8.9 mg/dL (8.4-10.2); GFR NON-AFRICAN AMERICAN > 60
--- NOTE | 2018-10-02 13:05 | CP.PCM.PN ---
Subjective - Date & Time of Evaluation Date of Evaluation: 10/02/18 Time of Evaluation: 09:00 - Subjective Subjective: afeb on IV Rx wounds dressed Objective - Vital Signs/Intake and Output Vital Signs (last 24 hours): Temp Pulse Resp BP Pulse Ox 97.9 F 69 20 115/73 100 10/02/18 08:36 10/02/18 09:35 10/02/18 08:36 10/02/18 09:35 10/02/18 08:36 - Medications Medications: Current Medications Acetaminophen (Tylenol 325mg Tab) 650 mg PO Q6 PRN PRN Reason: Pain, moderate (4-7) Last Admin: 09/30/18 21:11 Dose: 650 mg Albuterol/Ipratropium (Duoneb 3 Mg/0.5 Mg (3 Ml) Ud) 3 ml INH RQ6 PRN PRN Reason: Shortness of Breath Last Admin: 09/30/18 09:31 Dose: 3 ml Aspirin (Ecotrin) 81 mg PO DAILY [facility] Last Admin: 10/01/18 10:12 Dose: 81 mg Atorvastatin Calcium (Lipitor) 80 mg PO HS [facility] Last Admin: 10/01/18 21:45 Dose: 80 mg Clopidogrel Bisulfate (Plavix) 75 mg PO DAILY [facility] Last Admin: 10/01/18 10:12 Dose: 75 mg Diphenhydramine HCl (Benadryl) 25 mg PO Q6 PRN PRN Reason: Itching / Pruritus Last Admin: 10/01/18 21:58 Dose: 25 mg Furosemide (Lasix) 40 mg PO DAILY [facility] Last Admin: 10/01/18 10:12 Dose: 40 mg Gabapentin (Neurontin) 100 mg PO DAILY [facility] Last Admin: 10/01/18 10:12 Dose: 100 mg Guaifenesin/Dextromethorphan (Robitussin Dm) 10 ml PO Q6 PRN PRN Reason: Cough Last Admin: 09/24/18 00:58 Dose: 10 ml Heparin Sodium (Porcine) (Heparin) 5,000 units SC Q8 [facility]; Protocol Last Admin: 10/02/18 00:51 Dose: 5,000 units Vancomycin HCl 1 gm/ Sodium (Chloride) 250 mls @ 166.667 mls/hr IVPB Q12 [facility]; Protocol Last Admin: 10/02/18 09:33 Dose: Not Given Piperacillin Sod/Tazobactam (Sod 3.375 gm/ Sodium Chloride) 100 mls @ 100 mls/hr IVPB Q8H [facility]; Protocol Last Admin: 10/02/18 06:09 Dose: 100 mls/hr Insulin Human Lispro (Humalog) 0 units SC ACHS [facility]; Protocol Last Admin: 10/02/18 08:30 Dose: Not Given Isosorbide Mononitrate (Imdur Er) 30 mg PO DAILY [facility] Last Admin: 10/01/18 10:12 Dose: 30 mg Metoprolol Tartrate (Lopressor) 12.5 mg PO Q12 [facility] Last Admin: 10/02/18 09:35 Dose: 12.5 mg Montelukast Sodium (Singulair) 10 mg PO HS [facility] Last Admin: 10/01/18 21:45 Dose: 10 mg Pantoprazole Sodium (Protonix Ec Tab) 40 mg PO DAILY [facility] Last Admin: 10/01/18 08:27 Dose: 40 mg Spironolactone (Aldactone) 25 mg PO DAILY [facility] Last Admin: 10/01/18 10:14 Dose: 25 mg - Labs Labs: 10/02/18 08:41 10/02/18 08:41 - Constitutional Appears: Non-toxic, Chronically Ill - Head Exam Head Exam: NORMOCEPHALIC - Eye Exam Eye Exam: absent: Scleral icterus - ENT Exam ENT Exam: Mucous Membranes Dry - Neck Exam Neck Exam: absent: Lymphadenopathy - Respiratory Exam Respiratory Exam: Decreased Breath Sounds - Cardiovascular Exam Cardiovascular Exam: REGULAR RHYTHM - GI/Abdominal Exam GI & Abdominal Exam: Distended, Soft - Rectal Exam Rectal Exam: Deferred - Exam Exam: NORMAL INSPECTION - Extremities Exam Extremities Exam: absent: Pedal Edema - Back Exam Back Exam: absent: CVA tenderness (L), CVA tenderness (R) Assessment and Plan (1) Diabetic foot ulcer Status: Acute (2) Type 1 diabetes mellitus with diabetic foot infection Status: Acute - Assessment and Plan (Free Text) Assessment: cont iv rx for possible OM right foot
[2018-10-02] MEDS ORDERED: Protamine 50mg/5mL Inj IV ONE (15:49)
[2018-10-02] MEDS ORDERED: Oxycodone/Acetaminophen 5/325 mg Tab PO PRN (21:49)
[2018-10-03] MEDS: Piperacillin/Tazobact 3.375 GM in Sodium Chloride 0.9% 100 ML IVPB SCH ×3 (05:23→21:35)
[2018-10-03] MEDS: Pantoprazole 40 mg EC Tab PO SCH (06:42)
[2018-10-03] MEDS: Insulin Lispro (humaLOG) 100 Units/ml Inj SC SCH ×4 (06:47→21:52)
--- NOTE | 2018-10-03 13:49 | CP.PCM.PN ---
Subjective - Date & Time of Evaluation Date of Evaluation: 10/03/18 Time of Evaluation: 13:46 - Subjective Subjective: Podiatry progress note for Dr. Smith 72F seen and evaluated at bedside for bilateral lower extremity erythema, edema and ulcerations. Seen resting comfortably. She denies any acute events overnight. Denies N/V/F/SOB/CP/Chills. States she was advised she needs IV antibiotics. Is feeling lethargic. States she was seen by Dr. Jimenez. Denies any other pedal complaints. Objective - Vital Signs/Intake and Output Vital Signs (last 24 hours): Temp Pulse Resp BP Pulse Ox 97.8 F 64 20 107/66 100 10/03/18 08:02 10/03/18 09:48 10/03/18 08:02 10/03/18 09:49 10/03/18 08:02 - Medications Medications: Current Medications Acetaminophen (Tylenol 325mg Tab) 650 mg PO Q6 PRN PRN Reason: Pain, moderate (4-7) Last Admin: 09/30/18 21:11 Dose: 650 mg Albuterol/Ipratropium (Duoneb 3 Mg/0.5 Mg (3 Ml) Ud) 3 ml INH RQ6 PRN PRN Reason: Shortness of Breath Last Admin: 09/30/18 09:31 Dose: 3 ml Aspirin (Ecotrin) 81 mg PO DAILY [facility] Last Admin: 10/03/18 09:51 Dose: 81 mg Atorvastatin Calcium (Lipitor) 80 mg PO HS [facility] Last Admin: 10/02/18 22:35 Dose: 80 mg Clopidogrel Bisulfate (Plavix) 75 mg PO DAILY [facility] Last Admin: 10/03/18 09:49 Dose: 75 mg Diphenhydramine HCl (Benadryl) 25 mg PO Q6 PRN PRN Reason: Itching / Pruritus Last Admin: 10/02/18 22:49 Dose: 25 mg Furosemide (Lasix) 40 mg PO DAILY [facility] Last Admin: 10/03/18 09:49 Dose: 40 mg Gabapentin (Neurontin) 100 mg PO DAILY [facility] Last Admin: 10/03/18 09:50 Dose: 100 mg Guaifenesin/Dextromethorphan (Robitussin Dm) 10 ml PO Q6 PRN PRN Reason: Cough Last Admin: 09/24/18 00:58 Dose: 10 ml Heparin Sodium (Porcine) (Heparin) 5,000 units SC Q8 [facility]; Protocol Last Admin: 10/03/18 09:50 Dose: 5,000 units Piperacillin Sod/Tazobactam (Sod 3.375 gm/ Sodium Chloride) 100 mls @ 100 mls/hr IVPB Q8H [facility]; Protocol Last Admin: 10/03/18 13:44 Dose: 100 mls/hr Insulin Human Lispro (Humalog) 0 units SC ACHS [facility]; Protocol Last Admin: 10/03/18 13:42 Dose: 2 u Isosorbide Mononitrate (Imdur Er) 30 mg PO DAILY [facility] Last Admin: 10/03/18 09:49 Dose: 30 mg Metoprolol Tartrate (Lopressor) 12.5 mg PO Q12 [facility] Last Admin: 10/03/18 09:48 Dose: 12.5 mg Montelukast Sodium (Singulair) 10 mg PO HS [facility] Last Admin: 10/02/18 22:35 Dose: 10 mg Oxycodone/Acetaminophen (Percocet 5/325 Mg Tab) 1 tab PO Q4 PRN PRN Reason: Pain, moderate (4-7) Stop: 10/05/18 21:50 Last Admin: 10/03/18 00:12 Dose: 1 tab Pantoprazole Sodium (Protonix Ec Tab) 40 mg PO DAILY@0600 [facility] Last Admin: 10/03/18 06:42 Dose: 40 mg Spironolactone (Aldactone) 25 mg PO DAILY [facility] Last Admin: 10/03/18 09:49 Dose: 25 mg - Labs Labs: 10/02/18 08:41 10/02/18 08:41 - Constitutional Appears: Well, Non-toxic - Head Exam Head Exam: ATRAUMATIC - Extremities Exam Additional comments: B/L lower extremtiy focused exam: Vasc: DP/PT pulses are non-palpable bilaterally, Cap refill time < 3 sec to all digits, TG warm to warm, +2 edema noted extending from foot proximally to the mid leg level bilaterally Ortho: mild pain on palpation to all wounds; pain upon ROM bilateral LE. No pain on palpation of the calf b/l Neuro: Gross sensation intact, protective sensation absent Derm: LLE: dry, wrinkled skin noted, no open lesions RLE: Circular ulceration measuring approximately 5x4.5 extending into subcutaneous tissue noted to R heel with fibrous base, minimal malodor,sanguinous drainage, no purulence appreciated. No tunneling or tracking appreciated. No probe to bone. No evidence of cellulitis or superficial infection. wound noted to the medial aspect of the plantar sub met 1, granular base, no probeto bone, no malodor, no tunneling or tracking - Neurological Exam Neurological Exam: Alert - Psychiatric Exam Psychiatric exam: Normal Affect - Skin Skin Exam: Normal Color Assessment and Plan - Assessment and Plan (Free Text) Assessment: 72F with bilateral lower extremity erythema, edema and ulceration Plan: Patient seen and evaluated Discussed in detail with Dr. Smith Afebrile, absent leukocytosis R foot x-rays; moderate soft tissue swelling, no OM or fracture, diffuse osteopenia R wound culture: beta hemolytic group strep B Right foot Wounds cleansed with sterile saline, dressed with xeroform and DSD MRI: possible OM of the metatarsals, tarsal bones, hindfoot bones, distal tibia and fibular WENDI/PVR - RIGHT - evidence of moderately hemodynamically significant arterial insufficiency in RLE, LEFT - same Vascular consult, Dr. Jimenez on board Infectious disease consult ordered; recs appreciated PICC line placed ; patient to get IV antibiotics for six weeks. Multipodus boots worn at all times Patient will remain in house as her rehab benefits have been used for IV antibiotics Will continue to follow
[2018-10-04] MEDS: Pantoprazole 40 mg EC Tab PO SCH (05:42)
[2018-10-04] MEDS: Piperacillin/Tazobact 3.375 GM in Sodium Chloride 0.9% 100 ML IVPB SCH ×3 (05:42→21:26)
[2018-10-04] MEDS: Insulin Lispro (humaLOG) 100 Units/ml Inj SC SCH ×4 (09:02→21:23)
--- NOTE | 2018-10-04 12:00 | CP.PCM.PN ---
Subjective - Date & Time of Evaluation Date of Evaluation: 10/01/18 Objective - Vital Signs/Intake and Output Vital Signs (last 24 hours): Temp Pulse Resp BP Pulse Ox 97.8 F 67 20 151/72 H 98 10/04/18 08:41 10/04/18 09:00 10/04/18 08:41 10/04/18 09:00 10/04/18 08:41 - Medications Medications: Current Medications Acetaminophen (Tylenol 325mg Tab) 650 mg PO Q6 PRN PRN Reason: Pain, moderate (4-7) Last Admin: 10/04/18 00:25 Dose: 650 mg Albuterol/Ipratropium (Duoneb 3 Mg/0.5 Mg (3 Ml) Ud) 3 ml INH RQ6 PRN PRN Reason: Shortness of Breath Last Admin: 09/30/18 09:31 Dose: 3 ml Aspirin (Ecotrin) 81 mg PO DAILY [facility] Last Admin: 10/04/18 09:01 Dose: 81 mg Atorvastatin Calcium (Lipitor) 80 mg PO HS [facility] Last Admin: 10/03/18 21:35 Dose: 80 mg Clopidogrel Bisulfate (Plavix) 75 mg PO DAILY [facility] Last Admin: 10/04/18 09:02 Dose: 75 mg Diphenhydramine HCl (Benadryl) 25 mg PO Q6 PRN PRN Reason: Itching / Pruritus Last Admin: 10/02/18 22:49 Dose: 25 mg Furosemide (Lasix) 40 mg PO DAILY [facility] Last Admin: 10/04/18 09:00 Dose: 40 mg Gabapentin (Neurontin) 100 mg PO DAILY [facility] Last Admin: 10/04/18 09:00 Dose: 100 mg Guaifenesin/Dextromethorphan (Robitussin Dm) 10 ml PO Q6 PRN PRN Reason: Cough Last Admin: 09/24/18 00:58 Dose: 10 ml Heparin Sodium (Porcine) (Heparin) 5,000 units SC Q8 [facility]; Protocol Last Admin: 10/04/18 09:01 Dose: 5,000 units Piperacillin Sod/Tazobactam (Sod 3.375 gm/ Sodium Chloride) 100 mls @ 100 mls/hr IVPB Q8H [facility]; Protocol Last Admin: 10/04/18 05:42 Dose: 100 mls/hr Insulin Human Lispro (Humalog) 0 units SC ACHS [facility]; Protocol Last Admin: 10/04/18 09:02 Dose: 1 u Isosorbide Mononitrate (Imdur Er) 30 mg PO DAILY [facility] Last Admin: 10/04/18 09:01 Dose: 30 mg Metoprolol Tartrate (Lopressor) 12.5 mg PO Q12 [facility] Last Admin: 10/04/18 09:00 Dose: 12.5 mg Montelukast Sodium (Singulair) 10 mg PO HS [facility] Last Admin: 10/03/18 21:35 Dose: 10 mg Oxycodone/Acetaminophen (Percocet 5/325 Mg Tab) 1 tab PO Q4 PRN PRN Reason: Pain, moderate (4-7) Stop: 10/05/18 21:50 Last Admin: 10/03/18 00:12 Dose: 1 tab Pantoprazole Sodium (Protonix Ec Tab) 40 mg PO DAILY@0600 [facility] Last Admin: 10/04/18 05:42 Dose: 40 mg Spironolactone (Aldactone) 25 mg PO DAILY [facility] Last Admin: 10/04/18 09:01 Dose: 25 mg - Labs Labs: 10/02/18 08:41 10/02/18 08:41 Assessment and Plan (1) 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
--- NOTE | 2018-10-04 12:00 | CP.PCM.PN ---
Subjective - Date & Time of Evaluation Date of Evaluation: 10/03/18 Objective - Vital Signs/Intake and Output Vital Signs (last 24 hours): Temp Pulse Resp BP Pulse Ox 97.8 F 67 20 151/72 H 98 10/04/18 08:41 10/04/18 09:00 10/04/18 08:41 10/04/18 09:00 10/04/18 08:41 - Medications Medications: Current Medications Acetaminophen (Tylenol 325mg Tab) 650 mg PO Q6 PRN PRN Reason: Pain, moderate (4-7) Last Admin: 10/04/18 00:25 Dose: 650 mg Albuterol/Ipratropium (Duoneb 3 Mg/0.5 Mg (3 Ml) Ud) 3 ml INH RQ6 PRN PRN Reason: Shortness of Breath Last Admin: 09/30/18 09:31 Dose: 3 ml Aspirin (Ecotrin) 81 mg PO DAILY [facility] Last Admin: 10/04/18 09:01 Dose: 81 mg Atorvastatin Calcium (Lipitor) 80 mg PO HS [facility] Last Admin: 10/03/18 21:35 Dose: 80 mg Clopidogrel Bisulfate (Plavix) 75 mg PO DAILY [facility] Last Admin: 10/04/18 09:02 Dose: 75 mg Diphenhydramine HCl (Benadryl) 25 mg PO Q6 PRN PRN Reason: Itching / Pruritus Last Admin: 10/02/18 22:49 Dose: 25 mg Furosemide (Lasix) 40 mg PO DAILY [facility] Last Admin: 10/04/18 09:00 Dose: 40 mg Gabapentin (Neurontin) 100 mg PO DAILY [facility] Last Admin: 10/04/18 09:00 Dose: 100 mg Guaifenesin/Dextromethorphan (Robitussin Dm) 10 ml PO Q6 PRN PRN Reason: Cough Last Admin: 09/24/18 00:58 Dose: 10 ml Heparin Sodium (Porcine) (Heparin) 5,000 units SC Q8 [facility]; Protocol Last Admin: 10/04/18 09:01 Dose: 5,000 units Piperacillin Sod/Tazobactam (Sod 3.375 gm/ Sodium Chloride) 100 mls @ 100 mls/hr IVPB Q8H [facility]; Protocol Last Admin: 10/04/18 05:42 Dose: 100 mls/hr Insulin Human Lispro (Humalog) 0 units SC ACHS [facility]; Protocol Last Admin: 10/04/18 09:02 Dose: 1 u Isosorbide Mononitrate (Imdur Er) 30 mg PO DAILY [facility] Last Admin: 10/04/18 09:01 Dose: 30 mg Metoprolol Tartrate (Lopressor) 12.5 mg PO Q12 [facility] Last Admin: 10/04/18 09:00 Dose: 12.5 mg Montelukast Sodium (Singulair) 10 mg PO HS [facility] Last Admin: 10/03/18 21:35 Dose: 10 mg Oxycodone/Acetaminophen (Percocet 5/325 Mg Tab) 1 tab PO Q4 PRN PRN Reason: Pain, moderate (4-7) Stop: 10/05/18 21:50 Last Admin: 10/03/18 00:12 Dose: 1 tab Pantoprazole Sodium (Protonix Ec Tab) 40 mg PO DAILY@0600 [facility] Last Admin: 10/04/18 05:42 Dose: 40 mg Spironolactone (Aldactone) 25 mg PO DAILY [facility] Last Admin: 10/04/18 09:01 Dose: 25 mg - Labs Labs: 10/02/18 08:41 10/02/18 08:41 Assessment and Plan (1) 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
--- NOTE | 2018-10-04 12:00 | CP.PCM.PN ---
Subjective - Date & Time of Evaluation Date of Evaluation: 10/02/18 Objective - Vital Signs/Intake and Output Vital Signs (last 24 hours): Temp Pulse Resp BP Pulse Ox 97.8 F 67 20 151/72 H 98 10/04/18 08:41 10/04/18 09:00 10/04/18 08:41 10/04/18 09:00 10/04/18 08:41 - Medications Medications: Current Medications Acetaminophen (Tylenol 325mg Tab) 650 mg PO Q6 PRN PRN Reason: Pain, moderate (4-7) Last Admin: 10/04/18 00:25 Dose: 650 mg Albuterol/Ipratropium (Duoneb 3 Mg/0.5 Mg (3 Ml) Ud) 3 ml INH RQ6 PRN PRN Reason: Shortness of Breath Last Admin: 09/30/18 09:31 Dose: 3 ml Aspirin (Ecotrin) 81 mg PO DAILY [facility] Last Admin: 10/04/18 09:01 Dose: 81 mg Atorvastatin Calcium (Lipitor) 80 mg PO HS [facility] Last Admin: 10/03/18 21:35 Dose: 80 mg Clopidogrel Bisulfate (Plavix) 75 mg PO DAILY [facility] Last Admin: 10/04/18 09:02 Dose: 75 mg Diphenhydramine HCl (Benadryl) 25 mg PO Q6 PRN PRN Reason: Itching / Pruritus Last Admin: 10/02/18 22:49 Dose: 25 mg Furosemide (Lasix) 40 mg PO DAILY [facility] Last Admin: 10/04/18 09:00 Dose: 40 mg Gabapentin (Neurontin) 100 mg PO DAILY [facility] Last Admin: 10/04/18 09:00 Dose: 100 mg Guaifenesin/Dextromethorphan (Robitussin Dm) 10 ml PO Q6 PRN PRN Reason: Cough Last Admin: 09/24/18 00:58 Dose: 10 ml Heparin Sodium (Porcine) (Heparin) 5,000 units SC Q8 [facility]; Protocol Last Admin: 10/04/18 09:01 Dose: 5,000 units Piperacillin Sod/Tazobactam (Sod 3.375 gm/ Sodium Chloride) 100 mls @ 100 mls/hr IVPB Q8H [facility]; Protocol Last Admin: 10/04/18 05:42 Dose: 100 mls/hr Insulin Human Lispro (Humalog) 0 units SC ACHS [facility]; Protocol Last Admin: 10/04/18 09:02 Dose: 1 u Isosorbide Mononitrate (Imdur Er) 30 mg PO DAILY [facility] Last Admin: 10/04/18 09:01 Dose: 30 mg Metoprolol Tartrate (Lopressor) 12.5 mg PO Q12 [facility] Last Admin: 10/04/18 09:00 Dose: 12.5 mg Montelukast Sodium (Singulair) 10 mg PO HS [facility] Last Admin: 10/03/18 21:35 Dose: 10 mg Oxycodone/Acetaminophen (Percocet 5/325 Mg Tab) 1 tab PO Q4 PRN PRN Reason: Pain, moderate (4-7) Stop: 10/05/18 21:50 Last Admin: 10/03/18 00:12 Dose: 1 tab Pantoprazole Sodium (Protonix Ec Tab) 40 mg PO DAILY@0600 [facility] Last Admin: 10/04/18 05:42 Dose: 40 mg Spironolactone (Aldactone) 25 mg PO DAILY [facility] Last Admin: 10/04/18 09:01 Dose: 25 mg - Labs Labs: 10/02/18 08:41 10/02/18 08:41 Assessment and Plan (1) 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
--- NOTE | 2018-10-04 12:01 | CP.PCM.PN ---
Subjective - Date & Time of Evaluation Date of Evaluation: 10/04/18 Time of Evaluation: 11:00 Objective - Vital Signs/Intake and Output Vital Signs (last 24 hours): Temp Pulse Resp BP Pulse Ox 97.8 F 67 20 151/72 H 98 10/04/18 08:41 10/04/18 09:00 10/04/18 08:41 10/04/18 09:00 10/04/18 08:41 - Medications Medications: Current Medications Acetaminophen (Tylenol 325mg Tab) 650 mg PO Q6 PRN PRN Reason: Pain, moderate (4-7) Last Admin: 10/04/18 00:25 Dose: 650 mg Albuterol/Ipratropium (Duoneb 3 Mg/0.5 Mg (3 Ml) Ud) 3 ml INH RQ6 PRN PRN Reason: Shortness of Breath Last Admin: 09/30/18 09:31 Dose: 3 ml Aspirin (Ecotrin) 81 mg PO DAILY [facility] Last Admin: 10/04/18 09:01 Dose: 81 mg Atorvastatin Calcium (Lipitor) 80 mg PO HS [facility] Last Admin: 10/03/18 21:35 Dose: 80 mg Clopidogrel Bisulfate (Plavix) 75 mg PO DAILY [facility] Last Admin: 10/04/18 09:02 Dose: 75 mg Diphenhydramine HCl (Benadryl) 25 mg PO Q6 PRN PRN Reason: Itching / Pruritus Last Admin: 10/02/18 22:49 Dose: 25 mg Furosemide (Lasix) 40 mg PO DAILY [facility] Last Admin: 10/04/18 09:00 Dose: 40 mg Gabapentin (Neurontin) 100 mg PO DAILY [facility] Last Admin: 10/04/18 09:00 Dose: 100 mg Guaifenesin/Dextromethorphan (Robitussin Dm) 10 ml PO Q6 PRN PRN Reason: Cough Last Admin: 09/24/18 00:58 Dose: 10 ml Heparin Sodium (Porcine) (Heparin) 5,000 units SC Q8 [facility]; Protocol Last Admin: 10/04/18 09:01 Dose: 5,000 units Piperacillin Sod/Tazobactam (Sod 3.375 gm/ Sodium Chloride) 100 mls @ 100 mls/hr IVPB Q8H [facility]; Protocol Last Admin: 10/04/18 05:42 Dose: 100 mls/hr Insulin Human Lispro (Humalog) 0 units SC ACHS [facility]; Protocol Last Admin: 10/04/18 09:02 Dose: 1 u Isosorbide Mononitrate (Imdur Er) 30 mg PO DAILY [facility] Last Admin: 10/04/18 09:01 Dose: 30 mg Metoprolol Tartrate (Lopressor) 12.5 mg PO Q12 [facility] Last Admin: 10/04/18 09:00 Dose: 12.5 mg Montelukast Sodium (Singulair) 10 mg PO HS [facility] Last Admin: 10/03/18 21:35 Dose: 10 mg Oxycodone/Acetaminophen (Percocet 5/325 Mg Tab) 1 tab PO Q4 PRN PRN Reason: Pain, moderate (4-7) Stop: 10/05/18 21:50 Last Admin: 10/03/18 00:12 Dose: 1 tab Pantoprazole Sodium (Protonix Ec Tab) 40 mg PO DAILY@0600 [facility] Last Admin: 10/04/18 05:42 Dose: 40 mg Spironolactone (Aldactone) 25 mg PO DAILY [facility] Last Admin: 10/04/18 09:01 Dose: 25 mg - Labs Labs: 10/02/18 08:41 10/02/18 08:41 Assessment and Plan (1) 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
--- NOTE | 2018-10-04 12:09 | CP.PCM.PN ---
Subjective - Date & Time of Evaluation Date of Evaluation: 10/04/18 Time of Evaluation: 08:00 - Subjective Subjective: events noted iv rx in progresss Objective - Vital Signs/Intake and Output Vital Signs (last 24 hours): Temp Pulse Resp BP Pulse Ox 97.8 F 67 20 151/72 H 98 10/04/18 08:41 10/04/18 09:00 10/04/18 08:41 10/04/18 09:00 10/04/18 08:41 - Medications Medications: Current Medications Acetaminophen (Tylenol 325mg Tab) 650 mg PO Q6 PRN PRN Reason: Pain, moderate (4-7) Last Admin: 10/04/18 00:25 Dose: 650 mg Albuterol/Ipratropium (Duoneb 3 Mg/0.5 Mg (3 Ml) Ud) 3 ml INH RQ6 PRN PRN Reason: Shortness of Breath Last Admin: 09/30/18 09:31 Dose: 3 ml Aspirin (Ecotrin) 81 mg PO DAILY [facility] Last Admin: 10/04/18 09:01 Dose: 81 mg Atorvastatin Calcium (Lipitor) 80 mg PO HS [facility] Last Admin: 10/03/18 21:35 Dose: 80 mg Clopidogrel Bisulfate (Plavix) 75 mg PO DAILY [facility] Last Admin: 10/04/18 09:02 Dose: 75 mg Diphenhydramine HCl (Benadryl) 25 mg PO Q6 PRN PRN Reason: Itching / Pruritus Last Admin: 10/02/18 22:49 Dose: 25 mg Furosemide (Lasix) 40 mg PO DAILY [facility] Last Admin: 10/04/18 09:00 Dose: 40 mg Gabapentin (Neurontin) 100 mg PO DAILY [facility] Last Admin: 10/04/18 09:00 Dose: 100 mg Guaifenesin/Dextromethorphan (Robitussin Dm) 10 ml PO Q6 PRN PRN Reason: Cough Last Admin: 09/24/18 00:58 Dose: 10 ml Heparin Sodium (Porcine) (Heparin) 5,000 units SC Q8 [facility]; Protocol Last Admin: 10/04/18 09:01 Dose: 5,000 units Piperacillin Sod/Tazobactam (Sod 3.375 gm/ Sodium Chloride) 100 mls @ 100 mls/hr IVPB Q8H [facility]; Protocol Last Admin: 10/04/18 05:42 Dose: 100 mls/hr Insulin Human Lispro (Humalog) 0 units SC ACHS [facility]; Protocol Last Admin: 10/04/18 09:02 Dose: 1 u Isosorbide Mononitrate (Imdur Er) 30 mg PO DAILY [facility] Last Admin: 10/04/18 09:01 Dose: 30 mg Metoprolol Tartrate (Lopressor) 12.5 mg PO Q12 [facility] Last Admin: 10/04/18 09:00 Dose: 12.5 mg Montelukast Sodium (Singulair) 10 mg PO HS [facility] Last Admin: 10/03/18 21:35 Dose: 10 mg Oxycodone/Acetaminophen (Percocet 5/325 Mg Tab) 1 tab PO Q4 PRN PRN Reason: Pain, moderate (4-7) Stop: 10/05/18 21:50 Last Admin: 10/03/18 00:12 Dose: 1 tab Pantoprazole Sodium (Protonix Ec Tab) 40 mg PO DAILY@0600 [facility] Last Admin: 10/04/18 05:42 Dose: 40 mg Spironolactone (Aldactone) 25 mg PO DAILY [facility] Last Admin: 10/04/18 09:01 Dose: 25 mg - Labs Labs: 10/02/18 08:41 10/02/18 08:41 - Constitutional Appears: Non-toxic, Chronically Ill - Head Exam Head Exam: NORMOCEPHALIC - Eye Exam Eye Exam: absent: Scleral icterus - ENT Exam ENT Exam: Mucous Membranes Dry - Neck Exam Neck Exam: absent: Lymphadenopathy - Respiratory Exam Respiratory Exam: Decreased Breath Sounds - Cardiovascular Exam Cardiovascular Exam: REGULAR RHYTHM - GI/Abdominal Exam GI & Abdominal Exam: Distended - Rectal Exam Rectal Exam: Deferred - Exam Exam: NORMAL INSPECTION Assessment and Plan (1) Diabetic foot ulcer Status: Acute (2) Type 1 diabetes mellitus with diabetic foot infection Status: Acute - Assessment and Plan (Free Text) Assessment: cont rx x 6 weeks
[2018-10-05] MEDS: Piperacillin/Tazobact 3.375 GM in Sodium Chloride 0.9% 100 ML IVPB SCH ×3 (05:36→22:55)
[2018-10-05] MEDS: Pantoprazole 40 mg EC Tab PO SCH (05:36)
[2018-10-05] MEDS: Insulin Lispro (humaLOG) 100 Units/ml Inj SC SCH ×4 (09:22→22:44)
[2018-10-06] MEDS: Piperacillin/Tazobact 3.375 GM in Sodium Chloride 0.9% 100 ML IVPB SCH ×3 (06:21→21:56)
[2018-10-06] MEDS: Pantoprazole 40 mg EC Tab PO SCH (06:22)
[2018-10-06] MEDS: Insulin Lispro (humaLOG) 100 Units/ml Inj SC SCH ×4 (09:44→22:58)
[2018-10-07] MEDS: Piperacillin/Tazobact 3.375 GM in Sodium Chloride 0.9% 100 ML IVPB SCH ×3 (06:14→21:22)
[2018-10-07] MEDS: Pantoprazole 40 mg EC Tab PO SCH (06:16)
[2018-10-07] MEDS: Insulin Lispro (humaLOG) 100 Units/ml Inj SC SCH ×4 (09:19→22:30)
--- NOTE | 2018-10-07 10:18 | CP.PCM.PN ---
Subjective - Date & Time of Evaluation Date of Evaluation: 10/05/18 Time of Evaluation: 07:10 Objective - Vital Signs/Intake and Output Vital Signs (last 24 hours): Temp Pulse Resp BP Pulse Ox 98.1 F 71 20 128/74 93 L 10/07/18 08:08 10/07/18 09:19 10/07/18 08:08 10/07/18 09:19 10/07/18 08:08 - Medications Medications: Current Medications Acetaminophen (Tylenol 325mg Tab) 650 mg PO Q6 PRN PRN Reason: Pain, moderate (4-7) Last Admin: 10/05/18 14:46 Dose: 650 mg Albuterol/Ipratropium (Duoneb 3 Mg/0.5 Mg (3 Ml) Ud) 3 ml INH RQ6 PRN PRN Reason: Shortness of Breath Last Admin: 09/30/18 09:31 Dose: 3 ml Guaifenesin/Dextromethorphan (Robitussin Dm) 10 ml PO Q6 PRN PRN Reason: Cough Last Admin: 09/24/18 00:58 Dose: 10 ml Piperacillin Sod/Tazobactam (Sod 3.375 gm/ Sodium Chloride) 100 mls @ 100 mls/hr IVPB Q8H [facility]; Protocol Last Admin: 10/07/18 06:14 Dose: 100 mls/hr Insulin Human Lispro (Humalog) 0 units SC ACHS [facility]; Protocol Last Admin: 10/07/18 09:19 Dose: 1 u Lactic Acid (Lac-Hydrin 12% Lotion (225 G)) 1 applic TOP TID [facility] Last Admin: 10/07/18 09:21 Dose: 1 applic Metoprolol Tartrate (Lopressor) 12.5 mg PO Q12 [facility] Last Admin: 10/07/18 09:19 Dose: 12.5 mg Montelukast Sodium (Singulair) 10 mg PO HS [facility] Last Admin: 10/06/18 22:00 Dose: 10 mg Pantoprazole Sodium (Protonix Ec Tab) 40 mg PO DAILY@0600 [facility] Last Admin: 10/07/18 06:16 Dose: 40 mg - Labs Labs: 10/02/18 08:41 10/02/18 08:41 Assessment and Plan (1) 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
--- NOTE | 2018-10-07 10:21 | CP.PCM.PN ---
Subjective - Date & Time of Evaluation Date of Evaluation: 10/06/18 Time of Evaluation: 09:35 Objective - Vital Signs/Intake and Output Vital Signs (last 24 hours): Temp Pulse Resp BP Pulse Ox 98.1 F 71 20 128/74 93 L 10/07/18 08:08 10/07/18 09:19 10/07/18 08:08 10/07/18 09:19 10/07/18 08:08 - Medications Medications: Current Medications Acetaminophen (Tylenol 325mg Tab) 650 mg PO Q6 PRN PRN Reason: Pain, moderate (4-7) Last Admin: 10/05/18 14:46 Dose: 650 mg Albuterol/Ipratropium (Duoneb 3 Mg/0.5 Mg (3 Ml) Ud) 3 ml INH RQ6 PRN PRN Reason: Shortness of Breath Last Admin: 09/30/18 09:31 Dose: 3 ml Guaifenesin/Dextromethorphan (Robitussin Dm) 10 ml PO Q6 PRN PRN Reason: Cough Last Admin: 09/24/18 00:58 Dose: 10 ml Piperacillin Sod/Tazobactam (Sod 3.375 gm/ Sodium Chloride) 100 mls @ 100 mls/hr IVPB Q8H [facility]; Protocol Last Admin: 10/07/18 06:14 Dose: 100 mls/hr Insulin Human Lispro (Humalog) 0 units SC ACHS [facility]; Protocol Last Admin: 10/07/18 09:19 Dose: 1 u Lactic Acid (Lac-Hydrin 12% Lotion (225 G)) 1 applic TOP TID [facility] Last Admin: 10/07/18 09:21 Dose: 1 applic Metoprolol Tartrate (Lopressor) 12.5 mg PO Q12 [facility] Last Admin: 10/07/18 09:19 Dose: 12.5 mg Montelukast Sodium (Singulair) 10 mg PO HS [facility] Last Admin: 10/06/18 22:00 Dose: 10 mg Pantoprazole Sodium (Protonix Ec Tab) 40 mg PO DAILY@0600 [facility] Last Admin: 10/07/18 06:16 Dose: 40 mg - Labs Labs: 10/02/18 08:41 10/02/18 08:41 Assessment and Plan (1) 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
--- NOTE | 2018-10-07 13:55 | CP.PCM.PN ---
Subjective - Date & Time of Evaluation Date of Evaluation: 10/07/18 Time of Evaluation: 13:49 - Subjective Subjective: having reperfusion pain in her LE Objective - Vital Signs/Intake and Output Vital Signs (last 24 hours): Temp Pulse Resp BP Pulse Ox 98.1 F 71 20 128/74 93 L 10/07/18 08:08 10/07/18 09:19 10/07/18 08:08 10/07/18 09:19 10/07/18 08:08 - Medications Medications: Current Medications Acetaminophen (Tylenol 325mg Tab) 650 mg PO Q6 PRN PRN Reason: Pain, moderate (4-7) Last Admin: 10/05/18 14:46 Dose: 650 mg Albuterol/Ipratropium (Duoneb 3 Mg/0.5 Mg (3 Ml) Ud) 3 ml INH RQ6 PRN PRN Reason: Shortness of Breath Last Admin: 09/30/18 09:31 Dose: 3 ml Guaifenesin/Dextromethorphan (Robitussin Dm) 10 ml PO Q6 PRN PRN Reason: Cough Last Admin: 09/24/18 00:58 Dose: 10 ml Piperacillin Sod/Tazobactam (Sod 3.375 gm/ Sodium Chloride) 100 mls @ 100 mls/hr IVPB Q8H [facility]; Protocol Last Admin: 10/07/18 13:38 Dose: 100 mls/hr Insulin Human Lispro (Humalog) 0 units SC ACHS [facility]; Protocol Last Admin: 10/07/18 13:36 Dose: 2 u Lactic Acid (Lac-Hydrin 12% Lotion (225 G)) 1 applic TOP TID [facility] Last Admin: 10/07/18 13:34 Dose: Not Given Metoprolol Tartrate (Lopressor) 12.5 mg PO Q12 [facility] Last Admin: 10/07/18 09:19 Dose: 12.5 mg Montelukast Sodium (Singulair) 10 mg PO HS [facility] Last Admin: 10/06/18 22:00 Dose: 10 mg Pantoprazole Sodium (Protonix Ec Tab) 40 mg PO DAILY@0600 [facility] Last Admin: 10/07/18 06:16 Dose: 40 mg - Labs Labs: 10/02/18 08:41 10/02/18 08:41 - Constitutional Appears: Well - Head Exam Head Exam: ATRAUMATIC, NORMAL INSPECTION, NORMOCEPHALIC - Eye Exam Eye Exam: EOMI, Normal appearance, PERRL Pupil Exam: NORMAL ACCOMODATION, PERRL - ENT Exam ENT Exam: Mucous Membranes Moist, Normal Exam - Neck Exam Neck Exam: Full ROM, Normal Inspection. absent: Lymphadenopathy - Respiratory Exam Respiratory Exam: Clear to Ausculation Bilateral, NORMAL BREATHING PATTERN - Cardiovascular Exam Cardiovascular Exam: REGULAR RHYTHM, +S1, +S2. absent: Murmur - GI/Abdominal Exam GI & Abdominal Exam: Soft, Normal Bowel Sounds. absent: Tenderness - Extremities Exam Extremities Exam: Full ROM, Normal Capillary Refill, Normal Inspection. absent: Joint Swelling, Pedal Edema - Back Exam Back Exam: NORMAL INSPECTION - Neurological Exam Neurological Exam: Alert, Awake, CN II-XII Intact, Normal Gait, Oriented x3 - Psychiatric Exam Psychiatric exam: Normal Affect, Normal Mood - Skin Skin Exam: Dry, Intact, Normal Color, Warm Assessment and Plan (1) PVD (peripheral vascular disease) Assessment & Plan: cont dapt plan for staged [employer]HE[employer] of [facility]LE cont statins cont bb Status: Acute (2) CAD (coronary artery disease) Assessment & Plan: cont dapt cont bb cont statins Status: Acute (3) HTN (hypertension) Status: Acute (4) Dyslipidemia Status: Acute (5) Diabetic foot ulcer Status: Acute
[2018-10-08] MEDS: Piperacillin/Tazobact 3.375 GM in Sodium Chloride 0.9% 100 ML IVPB SCH ×3 (05:38→22:02)
[2018-10-08] MEDS: Pantoprazole 40 mg EC Tab PO SCH (05:38)
[2018-10-08 06:18] LABS: HEMOGLOBIN 9.4 g/dL (12.0-16.0); MEAN CELL VOLUME 89.3 fl (81.0-99.0); MEAN CORPUSCULAR HEMOGLOBIN 28.7 pg (27.0-31.0); MEAN CORPUSCULAR HGB CONC 32.2 g/dL (33.0-37.0); RBC 3.26 Mil/uL (3.80-5.20); RED CELL DISTRIBUTION WIDTH 14.7 % (11.5-14.5); WHITE BLOOD COUNT 6.1 K/uL (4.8-10.8)
[2018-10-08 06:51] LABS: ALB/GLOB RATIO 0.9 (1.0-2.1); ALBUMIN 3.4 g/dL (3.5-5.0); ALT/SGPT 22 U/L (9-52); AST/SGOT 22 U/L (14-36); BLOOD UREA NITROGEN 20 mg/dl (7-17); GFR NON-AFRICAN AMERICAN > 60
[2018-10-08] MEDS: Insulin Lispro (humaLOG) 100 Units/ml Inj SC SCH ×4 (09:33→22:00)
--- NOTE | 2018-10-08 11:00 | CP.PCM.PN ---
Subjective - Date & Time of Evaluation Date of Evaluation: 10/08/18 Time of Evaluation: 10:58 - Subjective Subjective: LE discomfort Objective - Vital Signs/Intake and Output Vital Signs (last 24 hours): Temp Pulse Resp BP Pulse Ox 98.4 F 66 20 110/67 100 10/08/18 08:09 10/08/18 08:09 10/08/18 08:09 10/08/18 09:35 10/08/18 08:09 - Medications Medications: Current Medications Acetaminophen (Tylenol 325mg Tab) 650 mg PO Q6 PRN PRN Reason: Pain, moderate (4-7) Last Admin: 10/05/18 14:46 Dose: 650 mg Albuterol/Ipratropium (Duoneb 3 Mg/0.5 Mg (3 Ml) Ud) 3 ml INH RQ6 PRN PRN Reason: Shortness of Breath Last Admin: 09/30/18 09:31 Dose: 3 ml Aspirin (Ecotrin) 81 mg PO DAILY [facility] Last Admin: 10/08/18 09:34 Dose: 81 mg Atorvastatin Calcium (Lipitor) 80 mg PO DAILY@2100 [facility] Last Admin: 10/07/18 21:21 Dose: 80 mg Clopidogrel Bisulfate (Plavix) 75 mg PO DAILY [facility] Last Admin: 10/08/18 09:35 Dose: 75 mg Diphenhydramine HCl (Benadryl) 25 mg PO Q6 PRN PRN Reason: Itching / Pruritus Last Admin: 10/08/18 05:38 Dose: 25 mg Furosemide (Lasix) 40 mg PO DAILY [facility] Last Admin: 10/08/18 09:35 Dose: 40 mg Gabapentin (Neurontin) 100 mg PO DAILY [facility] Last Admin: 10/08/18 10:11 Dose: 100 mg Guaifenesin/Dextromethorphan (Robitussin Dm) 10 ml PO Q6 PRN PRN Reason: Cough Last Admin: 09/24/18 00:58 Dose: 10 ml Piperacillin Sod/Tazobactam (Sod 3.375 gm/ Sodium Chloride) 100 mls @ 100 mls/hr IVPB Q8H [facility]; Protocol Last Admin: 10/08/18 05:38 Dose: 100 mls/hr Insulin Human Lispro (Humalog) 0 units SC ACHS [facility]; Protocol Last Admin: 10/08/18 09:33 Dose: 1 unit Isosorbide Mononitrate (Imdur Er) 30 mg PO DAILY [facility] Last Admin: 10/08/18 09:33 Dose: 30 mg Lactic Acid (Lac-Hydrin 12% Lotion (225 G)) 1 applic TOP TID [facility] Last Admin: 10/08/18 09:34 Dose: Not Given Lactulose (Enulose) 20 gm PO DAILY PRN PRN Reason: Constipation Metoprolol Tartrate (Lopressor) 12.5 mg PO Q12 [facility] Last Admin: 10/08/18 09:32 Dose: 12.5 mg Montelukast Sodium (Singulair) 10 mg PO HS [facility] Last Admin: 10/07/18 21:21 Dose: 10 mg Pantoprazole Sodium (Protonix Ec Tab) 40 mg PO DAILY@0600 [facility] Last Admin: 10/08/18 05:38 Dose: 40 mg Spironolactone (Aldactone) 25 mg PO DAILY [facility] Last Admin: 10/08/18 09:34 Dose: 25 mg - Labs Labs: 10/08/18 06:05 10/08/18 06:05 - Constitutional Appears: Well - Head Exam Head Exam: ATRAUMATIC, NORMAL INSPECTION, NORMOCEPHALIC - Eye Exam Eye Exam: EOMI, Normal appearance, PERRL Pupil Exam: NORMAL ACCOMODATION, PERRL - ENT Exam ENT Exam: Mucous Membranes Moist, Normal Exam - Neck Exam Neck Exam: Full ROM, Normal Inspection. absent: Lymphadenopathy - Respiratory Exam Respiratory Exam: Clear to Ausculation Bilateral, NORMAL BREATHING PATTERN - Cardiovascular Exam Cardiovascular Exam: REGULAR RHYTHM, +S1, +S2. absent: Murmur - GI/Abdominal Exam GI & Abdominal Exam: Soft, Normal Bowel Sounds. absent: Tenderness - Extremities Exam Extremities Exam: Full ROM, Normal Capillary Refill, Normal Inspection. absent: Joint Swelling, Pedal Edema - Back Exam Back Exam: NORMAL INSPECTION - Neurological Exam Neurological Exam: Alert, Awake, CN II-XII Intact, Normal Gait, Oriented x3 - Psychiatric Exam Psychiatric exam: Normal Affect, Normal Mood - Skin Skin Exam: Dry, Intact, Normal Color, Warm Assessment and Plan (1) PVD (peripheral vascular disease) Assessment & Plan: plan for staged angiogram of [facility]LE tomorrow cont dapt cont statins cont arbs Status: Acute (2) CAD (coronary artery disease) Assessment & Plan: cont dapt cont bb statins Status: Acute (3) HTN (hypertension) Status: Acute (4) Dyslipidemia Assessment & Plan: cont statins Status: Acute (5) Diabetic foot ulcer Status: Acute
--- NOTE | 2018-10-08 11:04 | CP.PCM.PN ---
Subjective - Date & Time of Evaluation Date of Evaluation: 10/08/18 Time of Evaluation: 09:00 - Subjective Subjective: reperfusion pain + iv antibiotics renewed Objective - Vital Signs/Intake and Output Vital Signs (last 24 hours): Temp Pulse Resp BP Pulse Ox 98.4 F 66 20 110/67 100 10/08/18 08:09 10/08/18 08:09 10/08/18 08:09 10/08/18 09:35 10/08/18 08:09 - Medications Medications: Current Medications Acetaminophen (Tylenol 325mg Tab) 650 mg PO Q6 PRN PRN Reason: Pain, moderate (4-7) Last Admin: 10/05/18 14:46 Dose: 650 mg Albuterol/Ipratropium (Duoneb 3 Mg/0.5 Mg (3 Ml) Ud) 3 ml INH RQ6 PRN PRN Reason: Shortness of Breath Last Admin: 09/30/18 09:31 Dose: 3 ml Aspirin (Ecotrin) 81 mg PO DAILY [facility] Last Admin: 10/08/18 09:34 Dose: 81 mg Atorvastatin Calcium (Lipitor) 80 mg PO DAILY@2100 [facility] Last Admin: 10/07/18 21:21 Dose: 80 mg Clopidogrel Bisulfate (Plavix) 75 mg PO DAILY [facility] Last Admin: 10/08/18 09:35 Dose: 75 mg Diphenhydramine HCl (Benadryl) 25 mg PO Q6 PRN PRN Reason: Itching / Pruritus Last Admin: 10/08/18 05:38 Dose: 25 mg Furosemide (Lasix) 40 mg PO DAILY [facility] Last Admin: 10/08/18 09:35 Dose: 40 mg Gabapentin (Neurontin) 100 mg PO DAILY [facility] Last Admin: 10/08/18 10:11 Dose: 100 mg Guaifenesin/Dextromethorphan (Robitussin Dm) 10 ml PO Q6 PRN PRN Reason: Cough Last Admin: 09/24/18 00:58 Dose: 10 ml Piperacillin Sod/Tazobactam (Sod 3.375 gm/ Sodium Chloride) 100 mls @ 100 mls/hr IVPB Q8H [facility]; Protocol Last Admin: 10/08/18 05:38 Dose: 100 mls/hr Insulin Human Lispro (Humalog) 0 units SC ACHS [facility]; Protocol Last Admin: 11/27/18 09:33 Dose: 1 unit Isosorbide Mononitrate (Imdur Er) 30 mg PO DAILY [facility] Last Admin: 10/08/18 09:33 Dose: 30 mg Lactic Acid (Lac-Hydrin 12% Lotion (225 G)) 1 applic TOP TID [facility] Last Admin: 10/08/18 09:34 Dose: Not Given Lactulose (Enulose) 20 gm PO DAILY PRN PRN Reason: Constipation Metoprolol Tartrate (Lopressor) 12.5 mg PO Q12 [facility] Last Admin: 10/08/18 09:32 Dose: 12.5 mg Montelukast Sodium (Singulair) 10 mg PO HS [facility] Last Admin: 10/07/18 21:21 Dose: 10 mg Pantoprazole Sodium (Protonix Ec Tab) 40 mg PO DAILY@0600 [facility] Last Admin: 10/08/18 05:38 Dose: 40 mg Spironolactone (Aldactone) 25 mg PO DAILY [facility] Last Admin: 10/08/18 09:34 Dose: 25 mg - Labs Labs: 10/08/18 06:05 10/08/18 06:05 - Constitutional Appears: Non-toxic - Head Exam Head Exam: NORMOCEPHALIC - Eye Exam Eye Exam: absent: Scleral icterus - ENT Exam ENT Exam: Mucous Membranes Dry - Neck Exam Neck Exam: absent: Lymphadenopathy - Respiratory Exam Respiratory Exam: Decreased Breath Sounds - Cardiovascular Exam Cardiovascular Exam: REGULAR RHYTHM - GI/Abdominal Exam GI & Abdominal Exam: Distended - Rectal Exam Rectal Exam: Deferred - Exam Exam: NORMAL INSPECTION Assessment and Plan (1) Diabetic foot ulcer Status: Acute (2) Type 1 diabetes mellitus with diabetic foot infection Status: Acute
--- NOTE | 2018-10-08 11:54 | CP.PCM.PN ---
Subjective - Date & Time of Evaluation Date of Evaluation: 10/08/18 Time of Evaluation: 11:50 - Subjective Subjective: Podiatry progress note for Dr. Smith 72F seen and evaluated at bedside for bilateral lower extremity erythema, edema and ulcerations. Seen resting comfortably. She denies any acute events overnight. Denies N/V/F/SOB/CP/Chills. States she had a procedure for her right leg performed last week and is scheduled to have one for left soon. States she was seen by Dr. Jimenez. Denies any other pedal complaints. Objective - Vital Signs/Intake and Output Vital Signs (last 24 hours): Temp Pulse Resp BP Pulse Ox 98.4 F 66 20 110/67 100 10/08/18 08:09 10/08/18 08:09 10/08/18 08:09 10/08/18 09:35 10/08/18 08:09 - Medications Medications: Current Medications Acetaminophen (Tylenol 325mg Tab) 650 mg PO Q6 PRN PRN Reason: Pain, moderate (4-7) Last Admin: 10/05/18 14:46 Dose: 650 mg Albuterol/Ipratropium (Duoneb 3 Mg/0.5 Mg (3 Ml) Ud) 3 ml INH RQ6 PRN PRN Reason: Shortness of Breath Last Admin: 09/30/18 09:31 Dose: 3 ml Aspirin (Ecotrin) 81 mg PO DAILY [facility] Last Admin: 10/08/18 09:34 Dose: 81 mg Atorvastatin Calcium (Lipitor) 80 mg PO DAILY@2100 [facility] Last Admin: 10/07/18 21:21 Dose: 80 mg Clopidogrel Bisulfate (Plavix) 75 mg PO DAILY [facility] Last Admin: 10/08/18 09:35 Dose: 75 mg Diphenhydramine HCl (Benadryl) 25 mg PO Q6 PRN PRN Reason: Itching / Pruritus Last Admin: 10/08/18 05:38 Dose: 25 mg Furosemide (Lasix) 40 mg PO DAILY [facility] Last Admin: 10/08/18 09:35 Dose: 40 mg Gabapentin (Neurontin) 100 mg PO DAILY [facility] Last Admin: 10/08/18 10:11 Dose: 100 mg Guaifenesin/Dextromethorphan (Robitussin Dm) 10 ml PO Q6 PRN PRN Reason: Cough Last Admin: 09/24/18 00:58 Dose: 10 ml Piperacillin Sod/Tazobactam (Sod 3.375 gm/ Sodium Chloride) 100 mls @ 100 mls/hr IVPB Q8H [facility]; Protocol Last Admin: 10/08/18 05:38 Dose: 100 mls/hr Insulin Human Lispro (Humalog) 0 units SC ACHS [facility]; Protocol Last Admin: 10/08/18 09:33 Dose: 1 unit Isosorbide Mononitrate (Imdur Er) 30 mg PO DAILY [facility] Last Admin: 10/08/18 09:33 Dose: 30 mg Lactic Acid (Lac-Hydrin 12% Lotion (225 G)) 1 applic TOP TID [facility] Last Admin: 10/08/18 09:34 Dose: Not Given Lactulose (Enulose) 20 gm PO DAILY PRN PRN Reason: Constipation Metoprolol Tartrate (Lopressor) 12.5 mg PO Q12 [facility] Last Admin: 10/08/18 09:32 Dose: 12.5 mg Montelukast Sodium (Singulair) 10 mg PO HS [facility] Last Admin: 10/07/18 21:21 Dose: 10 mg Pantoprazole Sodium (Protonix Ec Tab) 40 mg PO DAILY@0600 [facility] Last Admin: 10/08/18 05:38 Dose: 40 mg Spironolactone (Aldactone) 25 mg PO DAILY [facility] Last Admin: 10/08/18 09:34 Dose: 25 mg - Labs Labs: 10/08/18 06:05 10/08/18 06:05 - Constitutional Appears: Well, Non-toxic, No Acute Distress - Head Exam Head Exam: ATRAUMATIC, NORMOCEPHALIC - Extremities Exam Additional comments: Vasc: DP/PT pulses are non-palpable bilaterally, Cap refill time < 3 sec to all digits, TG warm to warm, +2 edema noted extending from foot proximally to the mid leg level bilaterally Ortho: mild pain on palpation to all wounds; pain upon ROM bilateral LE. No pain on palpation of the calf b/l Neuro: Gross sensation intact, protective sensation absent Derm: LLE: dry, wrinkled skin noted, no open lesions RLE: Circular ulceration measuring approximately 4cm x 3.9cm noted to R heel with 90:10 granular:fibrotic wound base, much improved, minimal malodor,sanguinous drainage, no purulence appreciated. No tunneling or tracking appreciated. No probe to bone. No evidence of cellulitis or superficial infection. wound noted to the medial aspect of the plantar sub met 1, granular base, no probeto bone, no malodor, no tunneling or tracking - Neurological Exam Neurological Exam: Alert, Awake, Oriented x3 - Psychiatric Exam Psychiatric exam: Normal Affect, Normal Mood Assessment and Plan - Assessment and Plan (Free Text) Assessment: 72F with bilateral lower extremity erythema, edema and ulceration Plan: Patient seen and evaluated Discussed in detail with Dr. Smith Afebrile, absent leukocytosis R foot x-rays; moderate soft tissue swelling, no OM or fracture, diffuse osteopenia R wound culture: beta hemolytic group strep B Right foot Wounds cleansed with sterile saline, dressed with xeroform and DSD Ordered Dakin's solution, will use to dress wounds as per Dr. Jimenez MRI: possible OM of the metatarsals, tarsal bones, hindfoot bones, distal tibia and fibular WENDI/PVR - RIGHT - evidence of moderately hemodynamically significant arterial insufficiency in RLE, LEFT - same Vascular consult, Dr. Jimenez on board Infectious disease consult ordered; recs appreciated PICC line placed ; patient to get IV antibiotics for six weeks. Multipodus boots worn at all times Patient will remain in house as her rehab benefits have been used for IV antibiotics Will continue to follow
--- NOTE | 2018-10-08 23:38 | CP.PCM.PN ---
Subjective - Date & Time of Evaluation Date of Evaluation: 10/07/18 Time of Evaluation: 09:30 Objective - Vital Signs/Intake and Output Vital Signs (last 24 hours): Temp Pulse Resp BP Pulse Ox 98.7 F 66 20 117/56 L 99 10/08/18 17:00 10/08/18 22:02 10/08/18 17:00 10/08/18 22:02 10/08/18 17:00 - Medications Medications: Current Medications Acetaminophen (Tylenol 325mg Tab) 650 mg PO Q6 PRN PRN Reason: Pain, moderate (4-7) Last Admin: 10/05/18 14:46 Dose: 650 mg Albuterol/Ipratropium (Duoneb 3 Mg/0.5 Mg (3 Ml) Ud) 3 ml INH RQ6 PRN PRN Reason: Shortness of Breath Last Admin: 09/30/18 09:31 Dose: 3 ml Aspirin (Ecotrin) 81 mg PO DAILY [facility] Last Admin: 10/08/18 09:34 Dose: 81 mg Atorvastatin Calcium (Lipitor) 80 mg PO DAILY@2100 [facility] Last Admin: 10/08/18 22:02 Dose: 80 mg Clopidogrel Bisulfate (Plavix) 75 mg PO DAILY [facility] Last Admin: 10/08/18 09:35 Dose: 75 mg Diphenhydramine HCl (Benadryl) 25 mg PO Q6 PRN PRN Reason: Itching / Pruritus Last Admin: 10/08/18 05:38 Dose: 25 mg Furosemide (Lasix) 40 mg PO DAILY [facility] Last Admin: 10/08/18 09:35 Dose: 40 mg Gabapentin (Neurontin) 100 mg PO DAILY [facility] Last Admin: 10/08/18 10:11 Dose: 100 mg Guaifenesin/Dextromethorphan (Robitussin Dm) 10 ml PO Q6 PRN PRN Reason: Cough Last Admin: 09/24/18 00:58 Dose: 10 ml Piperacillin Sod/Tazobactam (Sod 3.375 gm/ Sodium Chloride) 100 mls @ 100 mls/hr IVPB Q8H [facility]; Protocol Last Admin: 10/08/18 22:02 Dose: 100 mls/hr Insulin Human Lispro (Humalog) 0 units SC ACHS [facility]; Protocol Last Admin: 10/08/18 16:55 Dose: 1 unit Isosorbide Mononitrate (Imdur Er) 30 mg PO DAILY [facility] Last Admin: 10/08/18 09:33 Dose: 30 mg Lactic Acid (Lac-Hydrin 12% Lotion (225 G)) 1 applic TOP TID [facility] Last Admin: 10/08/18 16:03 Dose: Not Given Lactulose (Enulose) 20 gm PO DAILY PRN PRN Reason: Constipation Metoprolol Tartrate (Lopressor) 12.5 mg PO Q12 [facility] Last Admin: 10/08/18 22:02 Dose: 12.5 mg Montelukast Sodium (Singulair) 10 mg PO HS [facility] Last Admin: 10/08/18 22:02 Dose: 10 mg Pantoprazole Sodium (Protonix Ec Tab) 40 mg PO DAILY@0600 [facility] Last Admin: 10/08/18 05:38 Dose: 40 mg Sodium Hypochlorite (Dakins Solution 0.125%) 20 appl TOP DAILY [facility] Spironolactone (Aldactone) 25 mg PO DAILY [facility] Last Admin: 10/08/18 09:34 Dose: 25 mg - Labs Labs: 10/08/18 06:05 10/08/18 06:05 Assessment and Plan (1) 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
--- NOTE | 2018-10-08 23:40 | CP.PCM.PN ---
Subjective - Date & Time of Evaluation Date of Evaluation: 10/08/18 Time of Evaluation: 13:05 Objective - Vital Signs/Intake and Output Vital Signs (last 24 hours): Temp Pulse Resp BP Pulse Ox 98.7 F 66 20 117/56 L 99 10/08/18 17:00 10/08/18 22:02 10/08/18 17:00 10/08/18 22:02 10/08/18 17:00 - Medications Medications: Current Medications Acetaminophen (Tylenol 325mg Tab) 650 mg PO Q6 PRN PRN Reason: Pain, moderate (4-7) Last Admin: 10/05/18 14:46 Dose: 650 mg Albuterol/Ipratropium (Duoneb 3 Mg/0.5 Mg (3 Ml) Ud) 3 ml INH RQ6 PRN PRN Reason: Shortness of Breath Last Admin: 09/30/18 09:31 Dose: 3 ml Aspirin (Ecotrin) 81 mg PO DAILY [facility] Last Admin: 10/08/18 09:34 Dose: 81 mg Atorvastatin Calcium (Lipitor) 80 mg PO DAILY@2100 [facility] Last Admin: 10/08/18 22:02 Dose: 80 mg Clopidogrel Bisulfate (Plavix) 75 mg PO DAILY [facility] Last Admin: 10/08/18 09:35 Dose: 75 mg Diphenhydramine HCl (Benadryl) 25 mg PO Q6 PRN PRN Reason: Itching / Pruritus Last Admin: 10/08/18 05:38 Dose: 25 mg Furosemide (Lasix) 40 mg PO DAILY [facility] Last Admin: 10/08/18 09:35 Dose: 40 mg Gabapentin (Neurontin) 100 mg PO DAILY [facility] Last Admin: 10/08/18 10:11 Dose: 100 mg Guaifenesin/Dextromethorphan (Robitussin Dm) 10 ml PO Q6 PRN PRN Reason: Cough Last Admin: 09/24/18 00:58 Dose: 10 ml Piperacillin Sod/Tazobactam (Sod 3.375 gm/ Sodium Chloride) 100 mls @ 100 mls/hr IVPB Q8H [facility]; Protocol Last Admin: 10/08/18 22:02 Dose: 100 mls/hr Insulin Human Lispro (Humalog) 0 units SC ACHS [facility]; Protocol Last Admin: 10/08/18 16:55 Dose: 1 unit Isosorbide Mononitrate (Imdur Er) 30 mg PO DAILY [facility] Last Admin: 10/08/18 09:33 Dose: 30 mg Lactic Acid (Lac-Hydrin 12% Lotion (225 G)) 1 applic TOP TID [facility] Last Admin: 10/08/18 16:03 Dose: Not Given Lactulose (Enulose) 20 gm PO DAILY PRN PRN Reason: Constipation Metoprolol Tartrate (Lopressor) 12.5 mg PO Q12 [facility] Last Admin: 10/08/18 22:02 Dose: 12.5 mg Montelukast Sodium (Singulair) 10 mg PO HS [facility] Last Admin: 10/08/18 22:02 Dose: 10 mg Pantoprazole Sodium (Protonix Ec Tab) 40 mg PO DAILY@0600 [facility] Last Admin: 10/08/18 05:38 Dose: 40 mg Sodium Hypochlorite (Dakins Solution 0.125%) 20 appl TOP DAILY [facility] Spironolactone (Aldactone) 25 mg PO DAILY [facility] Last Admin: 10/08/18 09:34 Dose: 25 mg - Labs Labs: 10/08/18 06:05 10/08/18 06:05 Assessment and Plan (1) 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
[2018-10-09] MEDS: Sodium Chloride 0.9% 1,000 ML IV SCH ×3 (04:44→21:10)
[2018-10-09] MEDS: Insulin Lispro (humaLOG) 100 Units/ml Inj SC SCH ×4 (06:58→22:53)
[2018-10-09] MEDS: Piperacillin/Tazobact 3.375 GM in Sodium Chloride 0.9% 100 ML IVPB SCH ×3 (06:58→22:02)
[2018-10-09] MEDS: Pantoprazole 40 mg EC Tab PO SCH (06:58)
--- NOTE | 2018-10-09 22:43 | CP.PCM.PN ---
Subjective - Date & Time of Evaluation Date of Evaluation: 10/09/18 Time of Evaluation: 22:41 - Subjective Subjective: s/p peripheral angio and [employer] of left SFA with DCB ( drug coated balloon ) Objective - Vital Signs/Intake and Output Vital Signs (last 24 hours): Temp Pulse Resp BP Pulse Ox 98.3 F 47 L 18 113/52 L 99 10/09/18 18:20 10/09/18 22:00 10/09/18 18:20 10/09/18 22:00 10/09/18 18:20 - Medications Medications: Current Medications Acetaminophen (Tylenol 325mg Tab) 650 mg PO Q6 PRN PRN Reason: Pain, moderate (4-7) Last Admin: 10/05/18 14:46 Dose: 650 mg Albuterol/Ipratropium (Duoneb 3 Mg/0.5 Mg (3 Ml) Ud) 3 ml INH RQ6 PRN PRN Reason: Shortness of Breath Last Admin: 09/30/18 09:31 Dose: 3 ml Aspirin (Ecotrin) 81 mg PO DAILY [facility] Last Admin: 10/09/18 09:00 Dose: Not Given Atorvastatin Calcium (Lipitor) 80 mg PO DAILY@2100 [facility] Last Admin: 10/09/18 22:01 Dose: 80 mg Clopidogrel Bisulfate (Plavix) 75 mg PO DAILY [facility] Last Admin: 10/09/18 09:00 Dose: Not Given Diphenhydramine HCl (Benadryl) 25 mg PO Q6 PRN PRN Reason: Itching / Pruritus Last Admin: 10/09/18 22:28 Dose: 25 mg Furosemide (Lasix) 40 mg PO DAILY [facility] Last Admin: 10/09/18 09:00 Dose: Not Given Gabapentin (Neurontin) 100 mg PO DAILY [facility] Last Admin: 10/09/18 09:00 Dose: Not Given Guaifenesin/Dextromethorphan (Robitussin Dm) 10 ml PO Q6 PRN PRN Reason: Cough Last Admin: 09/24/18 00:58 Dose: 10 ml Piperacillin Sod/Tazobactam (Sod 3.375 gm/ Sodium Chloride) 100 mls @ 100 mls/hr IVPB Q8H [facility]; Protocol Last Admin: 10/09/18 22:02 Dose: 100 mls/hr Sodium Chloride (Sodium Chloride 0.9%) 1,000 mls @ 120 mls/hr IV .Q8H20M [facility] Stop: 10/10/18 04:25 Last Admin: 10/09/18 21:10 Dose: Not Given Insulin Human Lispro (Humalog) 0 units SC [facility]; Protocol Last Admin: 10/09/18 16:30 Dose: Not Given Isosorbide Mononitrate (Imdur Er) 30 mg PO DAILY [facility] Last Admin: 10/09/18 09:00 Dose: Not Given Lactic Acid (Lac-Hydrin 12% Lotion (225 G)) 1 applic TOP TID [facility] Last Admin: 10/09/18 17:35 Dose: Not Given Lactulose (Enulose) 20 gm PO DAILY PRN PRN Reason: Constipation Metoprolol Tartrate (Lopressor) 12.5 mg PO Q12 [facility] Last Admin: 10/09/18 22:00 Dose: Not Given Montelukast Sodium (Singulair) 10 mg PO HS [facility] Last Admin: 10/09/18 22:02 Dose: 10 mg Pantoprazole Sodium (Protonix Ec Tab) 40 mg PO DAILY@0600 [facility] Last Admin: 10/09/18 06:58 Dose: Not Given Sodium Hypochlorite (Dakins Solution 0.125%) 20 appl TOP DAILY [facility] Last Admin: 10/09/18 09:00 Dose: Not Given Spironolactone (Aldactone) 25 mg PO DAILY [facility] Last Admin: 10/09/18 09:00 Dose: Not Given - Labs Labs: 10/08/18 06:05 10/08/18 06:05 - Constitutional Appears: Well - Head Exam Head Exam: ATRAUMATIC, NORMAL INSPECTION, NORMOCEPHALIC - Eye Exam Eye Exam: EOMI, Normal appearance, PERRL Pupil Exam: NORMAL ACCOMODATION, PERRL - ENT Exam ENT Exam: Mucous Membranes Moist, Normal Exam - Neck Exam Neck Exam: Full ROM, Normal Inspection. absent: Lymphadenopathy - Respiratory Exam Respiratory Exam: Clear to Ausculation Bilateral, NORMAL BREATHING PATTERN - Cardiovascular Exam Cardiovascular Exam: REGULAR RHYTHM, +S1, +S2. absent: Murmur - GI/Abdominal Exam GI & Abdominal Exam: Soft, Normal Bowel Sounds. absent: Tenderness - Extremities Exam Extremities Exam: Full ROM, Normal Capillary Refill, Normal Inspection. absent: Joint Swelling, Pedal Edema - Back Exam Back Exam: NORMAL INSPECTION - Neurological Exam Neurological Exam: Alert, Awake, CN II-XII Intact, Normal Gait, Oriented x3 - Psychiatric Exam Psychiatric exam: Normal Affect, Normal Mood - Skin Skin Exam: Dry, Intact, Normal Color, Warm Assessment and Plan (1) PVD (peripheral vascular disease) Assessment & Plan: s/p [employer] with DCB of left SFA ( 20 mm gradient ) cont dapt cont bb, arb cont statins Status: Acute (2) CAD (coronary artery disease) Status: Acute (3) HTN (hypertension) Status: Acute (4) Dyslipidemia Status: Acute (5) Diabetic foot ulcer Status: Acute
[2018-10-10] MEDS: Pantoprazole 40 mg EC Tab PO SCH (06:16)
[2018-10-10] MEDS: Piperacillin/Tazobact 3.375 GM in Sodium Chloride 0.9% 100 ML IVPB SCH ×3 (06:16→22:28)
[2018-10-10] MEDS: Insulin Lispro (humaLOG) 100 Units/ml Inj SC SCH ×4 (07:06→22:59)
--- NOTE | 2018-10-10 10:47 | CP.PCM.PN ---
Subjective - Date & Time of Evaluation Date of Evaluation: 10/10/18 Time of Evaluation: 10:44 - Subjective Subjective: Podiatry progress note for Dr. Smith 72F seen at bedside. Resting comfortably. States she had a procedure with Dr. Jimenez yesterday for her left leg. States she is in no pain today. Denies N/V/F/C/SOB/CP. States that the dry skin on her left leg has been coming off and she has not been itching it only pulling off small pieces. Has no other pedal complaints today. Objective - Vital Signs/Intake and Output Vital Signs (last 24 hours): Temp Pulse Resp BP Pulse Ox 98.3 F 67 18 124/73 99 10/09/18 18:20 10/10/18 09:15 10/09/18 18:20 10/10/18 09:15 10/09/18 18:20 - Medications Medications: Current Medications Acetaminophen (Tylenol 325mg Tab) 650 mg PO Q6 PRN PRN Reason: Pain, moderate (4-7) Last Admin: 10/05/18 14:46 Dose: 650 mg Albuterol/Ipratropium (Duoneb 3 Mg/0.5 Mg (3 Ml) Ud) 3 ml INH RQ6 PRN PRN Reason: Shortness of Breath Last Admin: 09/30/18 09:31 Dose: 3 ml Aspirin (Ecotrin) 81 mg PO DAILY [facility] Last Admin: 10/10/18 09:14 Dose: 81 mg Atorvastatin Calcium (Lipitor) 80 mg PO DAILY@2100 [facility] Last Admin: 10/09/18 22:01 Dose: 80 mg Clopidogrel Bisulfate (Plavix) 75 mg PO DAILY [facility] Last Admin: 10/10/18 09:14 Dose: 75 mg Diphenhydramine HCl (Benadryl) 25 mg PO Q6 PRN PRN Reason: Itching / Pruritus Last Admin: 10/09/18 22:28 Dose: 25 mg Furosemide (Lasix) 40 mg PO DAILY [facility] Last Admin: 10/10/18 09:15 Dose: 40 mg Gabapentin (Neurontin) 100 mg PO DAILY [facility] Last Admin: 10/10/18 09:14 Dose: 100 mg Guaifenesin/Dextromethorphan (Robitussin Dm) 10 ml PO Q6 PRN PRN Reason: Cough Last Admin: 09/24/18 00:58 Dose: 10 ml Piperacillin Sod/Tazobactam (Sod 3.375 gm/ Sodium Chloride) 100 mls @ 100 mls/hr IVPB Q8H [facility]; Protocol Last Admin: 10/10/18 06:16 Dose: 100 mls/hr Insulin Human Lispro (Humalog) 0 units SC ACHS [facility]; Protocol Last Admin: 10/10/18 07:06 Dose: Not Given Isosorbide Mononitrate (Imdur Er) 30 mg PO DAILY [facility] Last Admin: 10/10/18 09:14 Dose: 30 mg Lactic Acid (Lac-Hydrin 12% Lotion (225 G)) 1 applic TOP TID [facility] Last Admin: 10/09/18 17:35 Dose: Not Given Lactulose (Enulose) 20 gm PO DAILY PRN PRN Reason: Constipation Metoprolol Tartrate (Lopressor) 12.5 mg PO Q12 [facility] Last Admin: 10/10/18 09:15 Dose: 12.5 mg Montelukast Sodium (Singulair) 10 mg PO HS [facility] Last Admin: 10/09/18 22:02 Dose: 10 mg Ondansetron HCl (Zofran Inj) 4 mg IVP Q6 PRN PRN Reason: Nausea/Vomiting Last Admin: 10/10/18 09:13 Dose: 4 mg Pantoprazole Sodium (Protonix Ec Tab) 40 mg PO DAILY@0600 [facility] Last Admin: 10/10/18 06:16 Dose: 40 mg Sodium Hypochlorite (Dakins Solution 0.125%) 20 appl TOP DAILY [facility] Last Admin: 10/09/18 09:00 Dose: Not Given Spironolactone (Aldactone) 25 mg PO DAILY [facility] Last Admin: 10/10/18 09:16 Dose: 25 mg - Labs Labs: 10/08/18 06:05 10/08/18 06:05 - Constitutional Appears: Well, Non-toxic, No Acute Distress - Head Exam Head Exam: ATRAUMATIC, NORMOCEPHALIC - Extremities Exam Additional comments: Vasc: DP/PT pulses are non-palpable bilaterally, Cap refill time < 3 sec to all digits, TG warm to warm, +2 edema noted extending from foot proximally to the mid leg level bilaterally - improving Ortho: mild pain on palpation to all wounds; pain upon ROM bilateral LE. No pain on palpation of the calf b/l Neuro: Gross sensation intact, protective sensation absent Derm: LLE: dry, wrinkled skin noted, no open lesions RLE: Circular ulceration measuring approximately 4cm x 3.9cm noted to R heel with 90:10 granular:fibrotic wound base, much improved, minimal malodor, no sanguinous drainage, no purulence appreciated. No tunneling or tracking appreciated. No probe to bone. No evidence of cellulitis or superficial infection. Wound noted to the medial aspect of the plantar sub met 1 - healed - Neurological Exam Neurological Exam: Alert, Awake, Oriented x3 - Psychiatric Exam Psychiatric exam: Normal Affect, Normal Mood Assessment and Plan - Assessment and Plan (Free Text) Assessment: 72F with bilateral lower extremity erythema, edema and stage 1 pressure ulceration Plan: Patient seen and evaluated Discussed in detail with Dr. Smith Afebrile, absent leukocytosis R foot x-rays; moderate soft tissue swelling, no OM or fracture, diffuse osteopenia R wound culture: beta hemolytic group strep B Right foot wounds cleansed and dressed with dakin's and light DSD MRI: possible OM of the metatarsals, tarsal bones, hindfoot bones, distal tibia and fibular WENDI/PVR - RIGHT - evidence of moderately hemodynamically significant arterial insufficiency in RLE, LEFT - same Vascular consult, Dr. Jimenez on board Infectious disease consult ordered; recs appreciated PICC line placed ; patient to get IV antibiotics for six weeks. Multipodus boots worn at all times Patient will remain in house as her rehab benefits have been used for IV antibiotics Will continue to follow
--- NOTE | 2018-10-10 22:02 | PQF ---
PROVIDER RESPONSE TEXT: Morbid Obesity BMI 44 REVIEWER QUERY TEXT: Clinical Significance Please clarify if there is an associated dx. to go along with the BMI:43.9:i.e Morbid Obesity ETC. --OR: Disagree -- OR:Unable to determine clinical significance -- Other, please specify In the EMR:BMI: 43.9 5ft 2 in 240 lb The patient's Clinical Indicators include: -- Query created by: Jaky Obrien on 10/10/2018 11:00 AM Electronically signed by: Traa Nam MD 10/10/2018 9:59 PM
--- NOTE | 2018-10-10 22:02 | PQF ---
PROVIDER RESPONSE TEXT: Agree with BMI 43.9 REVIEWER QUERY TEXT: Clinical Significance If in agreement with the BMI:43.9 please add the BMI to your next progress note --OR: Disagree -- Unable to determine clinical significance -- Other, please specify BMI: 43.9 5ft 2 in 240 lb The patient's Clinical Indicators include: -- Query created by: Jaky Obrien on 10/10/2018 11:03 AM Electronically signed by: Tara Nam MD 10/10/2018 9:59 PM
--- NOTE | 2018-10-11 01:35 | CP.PCM.PN ---
Subjective - Date & Time of Evaluation Date of Evaluation: 10/10/18 Time of Evaluation: 11:45 - Subjective Subjective: Seen and examined at the bed side. No fever or chills. S/P Left LE angioplasty with Dr. Jimenez yesterday for PVD. States she is in no pain today. Denies N/V/F/C/SOB/CP. States that the dry skin on her left leg has been coming off and she has not been itching it only pulling off small pieces. Has no other pedal complaints today. Objective - Vital Signs/Intake and Output Vital Signs (last 24 hours): Temp Pulse Resp BP Pulse Ox 98.5 F 64 19 102/62 99 10/11/18 00:39 10/11/18 00:39 10/11/18 00:39 10/11/18 00:39 10/11/18 00:39 - Medications Medications: Current Medications Acetaminophen (Tylenol 325mg Tab) 650 mg PO Q6 PRN PRN Reason: Pain, moderate (4-7) Last Admin: 10/10/18 19:00 Dose: 650 mg Albuterol/Ipratropium (Duoneb 3 Mg/0.5 Mg (3 Ml) Ud) 3 ml INH RQ6 PRN PRN Reason: Shortness of Breath Last Admin: 09/30/18 09:31 Dose: 3 ml Aspirin (Ecotrin) 81 mg PO DAILY [facility] Last Admin: 10/10/18 09:14 Dose: 81 mg Atorvastatin Calcium (Lipitor) 80 mg PO DAILY@2100 [facility] Last Admin: 10/10/18 20:53 Dose: 80 mg Clopidogrel Bisulfate (Plavix) 75 mg PO DAILY [facility] Last Admin: 10/10/18 09:14 Dose: 75 mg Diphenhydramine HCl (Benadryl) 25 mg PO Q6 PRN PRN Reason: Itching / Pruritus Last Admin: 10/09/18 22:28 Dose: 25 mg Furosemide (Lasix) 40 mg PO DAILY [facility] Last Admin: 10/10/18 09:15 Dose: 40 mg Gabapentin (Neurontin) 100 mg PO DAILY [facility] Last Admin: 10/10/18 09:14 Dose: 100 mg Guaifenesin/Dextromethorphan (Robitussin Dm) 10 ml PO Q6 PRN PRN Reason: Cough Last Admin: 09/24/18 00:58 Dose: 10 ml Piperacillin Sod/Tazobactam (Sod 3.375 gm/ Sodium Chloride) 100 mls @ 100 mls /hr IVPB Q8H [facility]; Protocol Last Admin: 10/10/18 22:28 Dose: 100 mls/hr Insulin Human Lispro (Humalog) 0 units SC ACHS [facility]; Protocol Last Admin: 10/10/18 22:59 Dose: Not Given Isosorbide Mononitrate (Imdur Er) 30 mg PO DAILY [facility] Last Admin: 10/10/18 09:14 Dose: 30 mg Lactic Acid (Lac-Hydrin 12% Lotion (225 G)) 1 applic TOP TID [facility] Last Admin: 10/10/18 17:07 Dose: Not Given Lactulose (Enulose) 20 gm PO DAILY PRN PRN Reason: Constipation Metoprolol Tartrate (Lopressor) 12.5 mg PO Q12 [facility] Last Admin: 10/10/18 22:37 Dose: Not Given Montelukast Sodium (Singulair) 10 mg PO HS [facility] Last Admin: 10/10/18 22:29 Dose: 10 mg Ondansetron HCl (Zofran Inj) 4 mg IVP Q6 PRN PRN Reason: Nausea/Vomiting Last Admin: 10/10/18 09:13 Dose: 4 mg Pantoprazole Sodium (Protonix Ec Tab) 40 mg PO DAILY@0600 [facility] Last Admin: 10/10/18 06:16 Dose: 40 mg Sodium Hypochlorite (Dakins Solution 0.125%) 20 appl TOP DAILY [facility] Last Admin: 10/10/18 10:47 Dose: 20 appl Spironolactone (Aldactone) 25 mg PO DAILY [facility] Last Admin: 10/10/18 09:16 Dose: 25 mg - Labs Labs: 10/08/18 06:05 10/08/18 06:05 Assessment and Plan (1) 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 - Assessment and Plan (Free Text) Plan: Continue Wound Care daily by Poditrist Continue Zosyn to complete 6 weeks for Acute Osteomyelitis PT/OT PAin Control Continue ASA/Plavix/Statin ID, Fur Sorter on board SW on 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
--- NOTE | 2018-10-11 01:35 | CP.PCM.PN ---
Subjective - Date & Time of Evaluation Date of Evaluation: 10/09/18 Objective - Vital Signs/Intake and Output Vital Signs (last 24 hours): Temp Pulse Resp BP Pulse Ox 98.5 F 64 19 102/62 99 10/11/18 00:39 10/11/18 00:39 10/11/18 00:39 10/11/18 00:39 10/11/18 00:39 - Medications Medications: Current Medications Acetaminophen (Tylenol 325mg Tab) 650 mg PO Q6 PRN PRN Reason: Pain, moderate (4-7) Last Admin: 10/10/18 19:00 Dose: 650 mg Albuterol/Ipratropium (Duoneb 3 Mg/0.5 Mg (3 Ml) Ud) 3 ml INH RQ6 PRN PRN Reason: Shortness of Breath Last Admin: 09/30/18 09:31 Dose: 3 ml Aspirin (Ecotrin) 81 mg PO DAILY [facility] Last Admin: 10/10/18 09:14 Dose: 81 mg Atorvastatin Calcium (Lipitor) 80 mg PO DAILY@2100 [facility] Last Admin: 10/10/18 20:53 Dose: 80 mg Clopidogrel Bisulfate (Plavix) 75 mg PO DAILY [facility] Last Admin: 10/10/18 09:14 Dose: 75 mg Diphenhydramine HCl (Benadryl) 25 mg PO Q6 PRN PRN Reason: Itching / Pruritus Last Admin: 10/09/18 22:28 Dose: 25 mg Furosemide (Lasix) 40 mg PO DAILY [facility] Last Admin: 10/10/18 09:15 Dose: 40 mg Gabapentin (Neurontin) 100 mg PO DAILY [facility] Last Admin: 10/10/18 09:14 Dose: 100 mg Guaifenesin/Dextromethorphan (Robitussin Dm) 10 ml PO Q6 PRN PRN Reason: Cough Last Admin: 09/24/18 00:58 Dose: 10 ml Piperacillin Sod/Tazobactam (Sod 3.375 gm/ Sodium Chloride) 100 mls @ 100 mls/hr IVPB Q8H [facility]; Protocol Last Admin: 10/10/18 22:28 Dose: 100 mls/hr Insulin Human Lispro (Humalog) 0 units SC ACHS [facility]; Protocol Last Admin: 10/10/18 22:59 Dose: Not Given Isosorbide Mononitrate (Imdur Er) 30 mg PO DAILY [facility] Last Admin: 10/10/18 09:14 Dose: 30 mg Lactic Acid (Lac-Hydrin 12% Lotion (225 G)) 1 applic TOP TID [facility] Last Admin: 10/10/18 17:07 Dose: Not Given Lactulose (Enulose) 20 gm PO DAILY PRN PRN Reason: Constipation Metoprolol Tartrate (Lopressor) 12.5 mg PO Q12 [facility] Last Admin: 10/10/18 22:37 Dose: Not Given Montelukast Sodium (Singulair) 10 mg PO HS [facility] Last Admin: 10/10/18 22:29 Dose: 10 mg Ondansetron HCl (Zofran Inj) 4 mg IVP Q6 PRN PRN Reason: Nausea/Vomiting Last Admin: 10/10/18 09:13 Dose: 4 mg Pantoprazole Sodium (Protonix Ec Tab) 40 mg PO DAILY@0600 [facility] Last Admin: 10/10/18 06:16 Dose: 40 mg Sodium Hypochlorite (Dakins Solution 0.125%) 20 appl TOP DAILY [facility] Last Admin: 10/10/18 10:47 Dose: 20 appl Spironolactone (Aldactone) 25 mg PO DAILY [facility] Last Admin: 10/10/18 09:16 Dose: 25 mg - Labs Labs: 10/08/18 06:05 10/08/18 06:05 Assessment and Plan (1) 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
[2018-10-11 06:02] LABS: HEMOGLOBIN 9.6 g/dL (12.0-16.0); MEAN CELL VOLUME 90.9 fl (81.0-99.0); MEAN CORPUSCULAR HEMOGLOBIN 29.1 pg (27.0-31.0); RBC 3.3 Mil/uL (3.80-5.20); RED CELL DISTRIBUTION WIDTH 14.8 % (11.5-14.5); WHITE BLOOD COUNT 6.4 K/uL (4.8-10.8)
[2018-10-11 06:14] LABS: ALB/GLOB RATIO 0.9 (1.0-2.1); ALBUMIN 3.3 g/dL (3.5-5.0); ALT/SGPT 22 U/L (9-52); AST/SGOT 19 U/L (14-36); BLOOD UREA NITROGEN 18 mg/dl (7-17); CALCIUM 9.2 mg/dL (8.4-10.2); GFR NON-AFRICAN AMERICAN 55
[2018-10-11] MEDS: Pantoprazole 40 mg EC Tab PO SCH (06:22)
[2018-10-11] MEDS: Piperacillin/Tazobact 3.375 GM in Sodium Chloride 0.9% 100 ML IVPB SCH ×3 (06:22→21:40)
[2018-10-11] MEDS: Insulin Lispro (humaLOG) 100 Units/ml Inj SC SCH ×4 (09:02→22:33)
[2018-10-12] MEDS: Piperacillin/Tazobact 3.375 GM in Sodium Chloride 0.9% 100 ML IVPB SCH ×3 (06:25→22:00)
[2018-10-12] MEDS: Pantoprazole 40 mg EC Tab PO SCH (06:26)
[2018-10-12] MEDS: Insulin Lispro (humaLOG) 100 Units/ml Inj SC SCH ×4 (09:04→21:09)
--- NOTE | 2018-10-13 00:04 | CP.PCM.PN ---
Subjective - Date & Time of Evaluation Date of Evaluation: 10/11/18 Time of Evaluation: 07:15 - Subjective Subjective: No New complaint. Objective - Vital Signs/Intake and Output Vital Signs (last 24 hours): Temp Pulse Resp BP Pulse Ox 98.5 F 65 18 106/60 100 10/12/18 23:54 10/12/18 23:54 10/12/18 23:54 10/12/18 23:54 10/12/18 23:54 - Medications Medications: Current Medications Acetaminophen (Tylenol 325mg Tab) 650 mg PO Q6 PRN PRN Reason: Pain, moderate (4-7) Last Admin: 10/10/18 19:00 Dose: 650 mg Albuterol/Ipratropium (Duoneb 3 Mg/0.5 Mg (3 Ml) Ud) 3 ml INH RQ6 PRN PRN Reason: Shortness of Breath Last Admin: 09/30/18 09:31 Dose: 3 ml Aspirin (Ecotrin) 81 mg PO DAILY [facility] Last Admin: 10/12/18 09:03 Dose: 81 mg Atorvastatin Calcium (Lipitor) 80 mg PO DAILY@2100 [facility] Last Admin: 10/12/18 21:02 Dose: 80 mg Clopidogrel Bisulfate (Plavix) 75 mg PO DAILY [facility] Last Admin: 10/12/18 09:05 Dose: 75 mg Diphenhydramine HCl (Benadryl) 25 mg PO Q6 PRN PRN Reason: Itching / Pruritus Last Admin: 10/12/18 02:00 Dose: 25 mg Furosemide (Lasix) 40 mg PO DAILY [facility] Last Admin: 10/12/18 09:05 Dose: 40 mg Gabapentin (Neurontin) 100 mg PO DAILY [facility] Last Admin: 10/12/18 09:05 Dose: 100 mg Guaifenesin/Dextromethorphan (Robitussin Dm) 10 ml PO Q6 PRN PRN Reason: Cough Last Admin: 09/24/18 00:58 Dose: 10 ml Piperacillin Sod/Tazobactam (Sod 3.375 gm/ Sodium Chloride) 100 mls @ 100 mls/hr IVPB Q8H [facility]; Protocol Last Admin: 10/12/18 22:00 Dose: 100 mls/hr Insulin Human Lispro (Humalog) 0 units SC ACHS [facility]; Protocol Last Admin: 10/12/18 21:09 Dose: Not Given Isosorbide Mononitrate (Imdur Er) 30 mg PO DAILY [facility] Last Admin: 10/12/18 09:05 Dose: 30 mg Lactic Acid (Lac-Hydrin 12% Lotion (225 G)) 1 applic TOP TID [facility] Last Admin: 10/12/18 18:56 Dose: Not Given Lactulose (Enulose) 20 gm PO DAILY PRN PRN Reason: Constipation Metoprolol Tartrate (Lopressor) 12.5 mg PO Q12 [facility] Last Admin: 10/12/18 21:01 Dose: 12.5 mg Montelukast Sodium (Singulair) 10 mg PO HS [facility] Last Admin: 10/12/18 21:03 Dose: 10 mg Ondansetron HCl (Zofran Inj) 4 mg IVP Q6 PRN PRN Reason: Nausea/Vomiting Last Admin: 10/10/18 09:13 Dose: 4 mg Pantoprazole Sodium (Protonix Ec Tab) 40 mg PO DAILY@0600 [facility] Last Admin: 10/12/18 06:26 Dose: 40 mg Sodium Hypochlorite (Dakins Solution 0.125%) 20 appl TOP DAILY [facility] Last Admin: 10/12/18 08:51 Dose: Not Given Spironolactone (Aldactone) 25 mg PO DAILY [facility] Last Admin: 10/12/18 09:03 Dose: 25 mg - Labs Labs: 10/11/18 05:35 10/11/18 05:35 Assessment and Plan (1) 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 - Assessment and Plan (Free Text) Plan: Continue Wound Care daily by Poditrist Continue Zosyn to complete 6 weeks for Acute Osteomyelitis PT/OT PAin Control Continue ASA/Plavix/Statin ID, 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
--- NOTE | 2018-10-13 00:05 | CP.PCM.PN ---
Subjective - Date & Time of Evaluation Date of Evaluation: 10/12/18 Time of Evaluation: 08:15 - Subjective Subjective: Seen and examined at the bed side. No fever or chills. Objective - Vital Signs/Intake and Output Vital Signs (last 24 hours): Temp Pulse Resp BP Pulse Ox 98.5 F 65 18 106/60 100 10/12/18 23:54 10/12/18 23:54 10/12/18 23:54 10/12/18 23:54 10/12/18 23:54 - Medications Medications: Current Medications Acetaminophen (Tylenol 325mg Tab) 650 mg PO Q6 PRN PRN Reason: Pain, moderate (4-7) Last Admin: 10/10/18 19:00 Dose: 650 mg Albuterol/Ipratropium (Duoneb 3 Mg/0.5 Mg (3 Ml) Ud) 3 ml INH RQ6 PRN PRN Reason: Shortness of Breath Last Admin: 09/30/18 09:31 Dose: 3 ml Aspirin (Ecotrin) 81 mg PO DAILY [facility] Last Admin: 10/12/18 09:03 Dose: 81 mg Atorvastatin Calcium (Lipitor) 80 mg PO DAILY@2100 [facility] Last Admin: 10/12/18 21:02 Dose: 80 mg Clopidogrel Bisulfate (Plavix) 75 mg PO DAILY [facility] Last Admin: 10/12/18 09:05 Dose: 75 mg Diphenhydramine HCl (Benadryl) 25 mg PO Q6 PRN PRN Reason: Itching / Pruritus Last Admin: 10/12/18 02:00 Dose: 25 mg Furosemide (Lasix) 40 mg PO DAILY [facility] Last Admin: 10/12/18 09:05 Dose: 40 mg Gabapentin (Neurontin) 100 mg PO DAILY [facility] Last Admin: 10/12/18 09:05 Dose: 100 mg Guaifenesin/Dextromethorphan (Robitussin Dm) 10 ml PO Q6 PRN PRN Reason: Cough Last Admin: 09/24/18 00:58 Dose: 10 ml Piperacillin Sod/Tazobactam (Sod 3.375 gm/ Sodium Chloride) 100 mls @ 100 mls/hr IVPB Q8H [facility]; Protocol Last Admin: 10/12/18 22:00 Dose: 100 mls/hr Insulin Human Lispro (Humalog) 0 units SC ACHS [facility]; Protocol Last Admin: 10/12/18 21:09 Dose: Not Given Isosorbide Mononitrate (Imdur Er) 30 mg PO DAILY [facility] Last Admin: 10/12/18 09:05 Dose: 30 mg Lactic Acid (Lac-Hydrin 12% Lotion (225 G)) 1 applic TOP TID [facility] Last Admin: 10/12/18 18:56 Dose: Not Given Lactulose (Enulose) 20 gm PO DAILY PRN PRN Reason: Constipation Metoprolol Tartrate (Lopressor) 12.5 mg PO Q12 [facility] Last Admin: 10/12/18 21:01 Dose: 12.5 mg Montelukast Sodium (Singulair) 10 mg PO HS [facility] Last Admin: 10/12/18 21:03 Dose: 10 mg Ondansetron HCl (Zofran Inj) 4 mg IVP Q6 PRN PRN Reason: Nausea/Vomiting Last Admin: 10/10/18 09:13 Dose: 4 mg Pantoprazole Sodium (Protonix Ec Tab) 40 mg PO DAILY@0600 [facility] Last Admin: 10/12/18 06:26 Dose: 40 mg Sodium Hypochlorite (Dakins Solution 0.125%) 20 appl TOP DAILY [facility] Last Admin: 10/12/18 08:51 Dose: Not Given Spironolactone (Aldactone) 25 mg PO DAILY [facility] Last Admin: 10/12/18 09:03 Dose: 25 mg - Labs Labs: 10/11/18 05:35 10/11/18 05:35 Assessment and Plan (1) 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 - Assessment and Plan (Free Text) Plan: Continue Wound Care daily by Poditrist Continue Zosyn to complete 6 weeks for Acute Osteomyelitis PT/OT PAin Control Continue ASA/Plavix/Statin ID, 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
[2018-10-13] MEDS: Piperacillin/Tazobact 3.375 GM in Sodium Chloride 0.9% 100 ML IVPB SCH ×3 (05:57→21:29)
[2018-10-13] MEDS: Pantoprazole 40 mg EC Tab PO SCH (05:57)
[2018-10-13] MEDS: Insulin Lispro (humaLOG) 100 Units/ml Inj SC SCH ×4 (09:38→21:26)
--- NOTE | 2018-10-13 15:23 | CP.PCM.PN ---
Subjective - Date & Time of Evaluation Date of Evaluation: 10/13/18 Time of Evaluation: 15:23 - Subjective Subjective: Podiatry - Dr. Smith 72F seen and evaluated at bedside for right heel ulceration. Patient resting comfortably, hemodynamically stable and NAD. No acute events overnight. No new lower extremity complaints per patient. Dressing to RLE clean/dry/intact with no strikethrough present. Multipodus boots on b/l. Denies n/v/f/d/c/sob/hu/cp. Objective - Vital Signs/Intake and Output Vital Signs (last 24 hours): Temp Pulse Resp BP Pulse Ox 97.6 F 66 20 130/72 99 10/13/18 08:16 10/13/18 09:40 10/13/18 08:16 10/13/18 09:40 10/13/18 08:16 - Medications Medications: Current Medications Acetaminophen (Tylenol 325mg Tab) 650 mg PO Q6 PRN PRN Reason: Pain, moderate (4-7) Last Admin: 10/10/18 19:00 Dose: 650 mg Albuterol/Ipratropium (Duoneb 3 Mg/0.5 Mg (3 Ml) Ud) 3 ml INH RQ6 PRN PRN Reason: Shortness of Breath Last Admin: 09/30/18 09:31 Dose: 3 ml Aspirin (Ecotrin) 81 mg PO DAILY [facility] Last Admin: 10/13/18 09:38 Dose: 81 mg Atorvastatin Calcium (Lipitor) 80 mg PO DAILY@2100 [facility] Last Admin: 10/12/18 21:02 Dose: 80 mg Clopidogrel Bisulfate (Plavix) 75 mg PO DAILY [facility] Last Admin: 10/13/18 09:41 Dose: 75 mg Diphenhydramine HCl (Benadryl) 25 mg PO Q6 PRN PRN Reason: Itching / Pruritus Last Admin: 10/12/18 02:00 Dose: 25 mg Furosemide (Lasix) 40 mg PO DAILY [facility] Last Admin: 10/13/18 09:40 Dose: 40 mg Gabapentin (Neurontin) 100 mg PO DAILY [facility] Last Admin: 10/13/18 09:41 Dose: 100 mg Guaifenesin/Dextromethorphan (Robitussin Dm) 10 ml PO Q6 PRN PRN Reason: Cough Last Admin: 09/24/18 00:58 Dose: 10 ml Piperacillin Sod/Tazobactam (Sod 3.375 gm/ Sodium Chloride) 100 mls @ 100 mls/hr IVPB Q8H [facility]; Protocol Last Admin: 10/13/18 13:44 Dose: 100 mls/hr Insulin Human Lispro (Humalog) 0 units SC ACHS [facility]; Protocol Last Admin: 10/13/18 13:39 Dose: 2 unit Isosorbide Mononitrate (Imdur Er) 30 mg PO DAILY [facility] Last Admin: 10/13/18 09:40 Dose: 30 mg Lactic Acid (Lac-Hydrin 12% Lotion (225 G)) 1 applic TOP TID [facility] Last Admin: 10/13/18 13:44 Dose: Not Given Lactulose (Enulose) 20 gm PO DAILY PRN PRN Reason: Constipation Metoprolol Tartrate (Lopressor) 12.5 mg PO Q12 [facility] Last Admin: 10/13/18 09:40 Dose: 12.5 mg Montelukast Sodium (Singulair) 10 mg PO HS [facility] Last Admin: 10/12/18 21:03 Dose: 10 mg Ondansetron HCl (Zofran Inj) 4 mg IVP Q6 PRN PRN Reason: Nausea/Vomiting Last Admin: 10/10/18 09:13 Dose: 4 mg Pantoprazole Sodium (Protonix Ec Tab) 40 mg PO DAILY@0600 [facility] Last Admin: 10/13/18 05:57 Dose: 40 mg Sodium Hypochlorite (Dakins Solution 0.125%) 20 appl TOP DAILY [facility] Last Admin: 10/12/18 08:51 Dose: Not Given Spironolactone (Aldactone) 25 mg PO DAILY [facility] Last Admin: 10/13/18 09:37 Dose: 25 mg - Labs Labs: 10/11/18 05:35 10/11/18 05:35 - Constitutional Appears: Well, Non-toxic, No Acute Distress - Extremities Exam Additional comments: Vasc: DP/PT pulses non-palpable bilaterally, CFT < 3 sec to all digits, TG warm to warm, +1 pitting edema noted b/l Ortho: No pain on palpation to right heel wounnd; no pain upon calf compression b/l Neuro: Gross sensation intact, protective sensation absent Derm: LLE: No open lesions present; severe xerosis noted circumfirentially RLE: Circular ulceration measuring approximately 4cm x 3.9cm noted to R heel with 90:10 granular:fibrotic wound base, much improved, minimal malodor, minimal sanguinous drainage, no purulence appreciated. No tunneling or tracking appreciated. No probe to bone. No evidence of cellulitis or superficial infection. Healed ulceration noted plantarmedial sub met 1 - Neurological Exam Neurological Exam: Alert, Awake, Oriented x3 - Psychiatric Exam Psychiatric exam: Normal Affect, Normal Mood Assessment and Plan - Assessment and Plan (Free Text) Assessment: 72F with bilateral lower extremity erythema, edema and stage 1 pressure ulceration Plan: Patient seen and evaluated Discussed with attending, Dr. 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
[2018-10-14] MEDS: Piperacillin/Tazobact 3.375 GM in Sodium Chloride 0.9% 100 ML IVPB SCH ×3 (05:25→21:45)
[2018-10-14] MEDS: Pantoprazole 40 mg EC Tab PO SCH (05:25)
--- NOTE | 2018-10-14 10:42 | CARD ---
APPROVED REPORT Date of service: 10/14/2018 EKG Measurement Heart [id number] <Conclusion> Sinus rhythm with occasional premature ventricular complexes Otherwise normal ECG
--- NOTE | 2018-10-14 15:49 | CP.PCM.PN ---
Subjective - Date & Time of Evaluation Date of Evaluation: 10/14/18 Time of Evaluation: 15:46 - Subjective Subjective: c/o neck pain from sleeping improper position Objective - Vital Signs/Intake and Output Vital Signs (last 24 hours): Temp Pulse Resp BP Pulse Ox 98.3 F 60 18 138/79 99 10/14/18 08:52 10/14/18 09:06 10/14/18 08:52 10/14/18 09:06 10/14/18 08:52 - Medications Medications: Current Medications Acetaminophen (Tylenol 325mg Tab) 650 mg PO Q6 PRN PRN Reason: Pain, moderate (4-7) Last Admin: 10/14/18 06:18 Dose: 650 mg Albuterol/Ipratropium (Duoneb 3 Mg/0.5 Mg (3 Ml) Ud) 3 ml INH RQ6 PRN PRN Reason: Shortness of Breath Last Admin: 09/30/18 09:31 Dose: 3 ml Aspirin (Ecotrin) 81 mg PO DAILY [facility] Last Admin: 10/14/18 09:05 Dose: 81 mg Atorvastatin Calcium (Lipitor) 80 mg PO DAILY@2100 [facility] Last Admin: 10/13/18 21:28 Dose: 80 mg Clopidogrel Bisulfate (Plavix) 75 mg PO DAILY [facility] Last Admin: 10/14/18 09:07 Dose: 75 mg Diphenhydramine HCl (Benadryl) 25 mg PO Q6 PRN PRN Reason: Itching / Pruritus Last Admin: 10/13/18 18:40 Dose: 25 mg Furosemide (Lasix) 40 mg PO DAILY [facility] Last Admin: 10/14/18 09:06 Dose: 40 mg Gabapentin (Neurontin) 100 mg PO DAILY [facility] Last Admin: 10/14/18 09:07 Dose: 100 mg Guaifenesin/Dextromethorphan (Robitussin Dm) 10 ml PO Q6 PRN PRN Reason: Cough Last Admin: 09/24/18 00:58 Dose: 10 ml Heparin Sodium (Porcine) (Heparin) 5,000 units SC Q8 [facility]; Protocol Piperacillin Sod/Tazobactam (Sod 3.375 gm/ Sodium Chloride) 100 mls @ 100 mls/hr IVPB Q8H [facility]; Protocol Last Admin: 10/14/18 14:36 Dose: 100 mls/hr Isosorbide Mononitrate (Imdur Er) 30 mg PO DAILY [facility] Last Admin: 10/14/18 09:05 Dose: 30 mg Lactic Acid (Lac-Hydrin 12% Lotion (225 G)) 1 applic TOP TID [facility] Last Admin: 10/14/18 14:33 Dose: Not Given Lactulose (Enulose) 20 gm PO DAILY PRN PRN Reason: Constipation Metoprolol Tartrate (Lopressor) 12.5 mg PO Q12 [facility] Last Admin: 10/14/18 09:06 Dose: 12.5 mg Montelukast Sodium (Singulair) 10 mg PO HS [facility] Last Admin: 10/13/18 21:28 Dose: 10 mg Ondansetron HCl (Zofran Inj) 4 mg IVP Q6 PRN PRN Reason: Nausea/Vomiting Last Admin: 10/10/18 09:13 Dose: 4 mg Pantoprazole Sodium (Protonix Ec Tab) 40 mg PO DAILY@0600 [facility] Last Admin: 10/14/18 05:25 Dose: 40 mg Sodium Hypochlorite (Dakins Solution 0.125%) 20 appl TOP DAILY [facility] Last Admin: 10/13/18 16:12 Dose: 20 appl Spironolactone (Aldactone) 25 mg PO DAILY [facility] Last Admin: 10/14/18 09:05 Dose: 25 mg - Labs Labs: 10/11/18 05:35 10/11/18 05:35 - Constitutional Appears: Well - Head Exam Head Exam: ATRAUMATIC, NORMAL INSPECTION, NORMOCEPHALIC - Eye Exam Eye Exam: EOMI, Normal appearance, PERRL Pupil Exam: NORMAL ACCOMODATION, PERRL - ENT Exam ENT Exam: Mucous Membranes Moist, Normal Exam - Neck Exam Neck Exam: Full ROM, Normal Inspection. absent: Lymphadenopathy - Respiratory Exam Respiratory Exam: Clear to Ausculation Bilateral, NORMAL BREATHING PATTERN - Cardiovascular Exam Cardiovascular Exam: REGULAR RHYTHM, +S1, +S2. absent: Murmur - GI/Abdominal Exam GI & Abdominal Exam: Soft, Normal Bowel Sounds. absent: Tenderness - Extremities Exam Extremities Exam: Full ROM, Normal Capillary Refill, Normal Inspection. absent: Joint Swelling, Pedal Edema - Back Exam Back Exam: NORMAL INSPECTION - Neurological Exam Neurological Exam: Alert, Awake, CN II-XII Intact, Normal Gait, Oriented x3 - Psychiatric Exam Psychiatric exam: Normal Affect, Normal Mood - Skin Skin Exam: Dry, Intact, Normal Color, Warm Assessment and Plan (1) PVD (peripheral vascular disease) Status: Acute (2) CAD (coronary artery disease) Status: Acute (3) HTN (hypertension) Status: Acute (4) Dyslipidemia Status: Acute (5) Diabetic foot ulcer Status: Acute
[2018-10-14] MEDS: Insulin Lispro (humaLOG) 100 Units/ml Inj SC SCH (22:35)
[2018-10-15] MEDS: Piperacillin/Tazobact 3.375 GM in Sodium Chloride 0.9% 100 ML IVPB SCH ×3 (06:00→21:30)
[2018-10-15] MEDS: Pantoprazole 40 mg EC Tab PO SCH (06:01)
[2018-10-15] MEDS: Insulin Lispro (humaLOG) 100 Units/ml Inj SC SCH ×4 (09:33→22:30)
--- NOTE | 2018-10-15 11:03 | CP.PCM.PN ---
Subjective - Date & Time of Evaluation Date of Evaluation: 10/15/18 Time of Evaluation: 11:01 - Subjective Subjective: Podiatry - Dr. Smith 72 y/o female seen and evaluated at bedside for right heel ulceration. Patient resting comfortably, hemodynamically stable and NAD. No acute events overnight. No new lower extremity complaints per patient. Dressing to RLE clean/dry/intact with no strikethrough present. Multipodus boots on b/l. Denies n/v/f/d/c/so b/hu/cp. Objective - Vital Signs/Intake and Output Vital Signs (last 24 hours): Temp Pulse Resp BP Pulse Ox 97.7 F 58 L 19 110/56 L 98 10/15/18 08:12 10/15/18 09:38 10/15/18 08:12 10/15/18 09:38 10/15/18 08:12 - Medications Medications: Current Medications Acetaminophen (Tylenol 325mg Tab) 650 mg PO Q6 PRN PRN Reason: Pain, moderate (4-7) Last Admin: 10/14/18 06:18 Dose: 650 mg Albuterol/Ipratropium (Duoneb 3 Mg/0.5 Mg (3 Ml) Ud) 3 ml INH RQ6 PRN PRN Reason: Shortness of Breath Last Admin: 09/30/18 09:31 Dose: 3 ml Aspirin (Ecotrin) 81 mg PO DAILY [facility] Last Admin: 10/15/18 09:32 Dose: 81 mg Atorvastatin Calcium (Lipitor) 80 mg PO DAILY@2100 [facility] Last Admin: 10/14/18 21:46 Dose: 80 mg Clopidogrel Bisulfate (Plavix) 75 mg PO DAILY [facility] Last Admin: 10/15/18 09:39 Dose: 75 mg Diphenhydramine HCl (Benadryl) 25 mg PO Q6 PRN PRN Reason: Itching / Pruritus Last Admin: 10/13/18 18:40 Dose: 25 mg Furosemide (Lasix) 40 mg PO DAILY [facility] Last Admin: 10/15/18 09:38 Dose: 40 mg Gabapentin (Neurontin) 100 mg PO DAILY [facility] Last Admin: 10/15/18 09:39 Dose: 100 mg Guaifenesin/Dextromethorphan (Robitussin Dm) 10 ml PO Q6 PRN PRN Reason: Cough Last Admin: 09/24/18 00:58 Dose: 10 ml Heparin Sodium (Porcine) (Heparin) 5,000 units SC Q8 [facility]; Protocol Last Admin: 10/15/18 09:32 Dose: 5,000 units Piperacillin Sod/Tazobactam (Sod 3.375 gm/ Sodium Chloride) 100 mls @ 100 mls/hr IVPB Q8H [facility]; Protocol Last Admin: 10/15/18 06:00 Dose: 100 mls/hr Insulin Human Lispro (Humalog) 0 units SC QID [facility]; Protocol Last Admin: 10/15/18 09:33 Dose: 1 unit Isosorbide Mononitrate (Imdur Er) 30 mg PO DAILY [facility] Last Admin: 10/15/18 09:37 Dose: 30 mg Lactic Acid (Lac-Hydrin 12% Lotion (225 G)) 1 applic TOP TID [facility] Last Admin: 10/15/18 10:52 Dose: Not Given Lactulose (Enulose) 20 gm PO DAILY PRN PRN Reason: Constipation Metoprolol Tartrate (Lopressor) 12.5 mg PO Q12 [facility] Last Admin: 10/15/18 09:38 Dose: Not Given Montelukast Sodium (Singulair) 10 mg PO HS [facility] Last Admin: 10/14/18 21:46 Dose: 10 mg Ondansetron HCl (Zofran Inj) 4 mg IVP Q6 PRN PRN Reason: Nausea/Vomiting Last Admin: 10/10/18 09:13 Dose: 4 mg Pantoprazole Sodium (Protonix Ec Tab) 40 mg PO DAILY@0600 [facility] Last Admin: 10/15/18 06:01 Dose: 40 mg Sodium Hypochlorite (Dakins Solution 0.125%) 20 appl TOP DAILY [facility] Last Admin: 10/15/18 09:32 Dose: Not Given Spironolactone (Aldactone) 25 mg PO DAILY [facility] Last Admin: 10/15/18 09:31 Dose: 25 mg - Labs Labs: 10/11/18 05:35 10/11/18 05:35 - Constitutional Appears: Well, Non-toxic, No Acute Distress - Head Exam Head Exam: ATRAUMATIC, NORMOCEPHALIC - Extremities Exam Additional comments: Vasc: DP/PT pulses non-palpable bilaterally, CFT < 3 sec to all digits, TG warm to warm, +1 pitting edema noted b/l Ortho: No pain on palpation to right heel wounnd; no pain upon calf compression b/l Neuro: Gross sensation intact, protective sensation absent Derm: LLE: No open lesions present; severe xerosis noted circumfirentially RLE: Circular ulceration measuring approximately 4cm x 3.9cm noted to R heel with 100% granular wound base, much improved, no malodor, minimal sanguinous drainage, no purulence appreciated. No tunneling or tracking appreciated. No probe to bone. No evidence of cellulitis or superficial infection. Healed ulceration noted plantarmedial sub met 1 - Neurological Exam Neurological Exam: Alert, Awake, Oriented x3 - Psychiatric Exam Psychiatric exam: Normal Affect, Normal Mood Assessment and Plan - Assessment and Plan (Free Text) Assessment: 72F with bilateral lower extremity erythema, edema and stage 1 pressure ulceration Plan: Patient seen and evaluated Discussed with attending, Dr. Smith Chart, labs and vitals reviewed- Afebrile R foot x-rays; moderate soft tissue swelling, no OM or fracture, diffuse osteopenia MRI: possible OM of the metatarsals, tarsal bones, hindfoot bones, distal tibia and fibular WENDI/PVR - RIGHT - evidence of moderately hemodynamically significant arterial insufficiency in RLE, LEFT - same -Vascular on board - patient s/p peripheral angio and [employer] of left SFA with drug coated balloon R wound culture: beta hemolytic group strep B -Continue abx per ID - PICC placed; continue Zosyn to complete 6 weeks for acute OM Continue local wound care: Dakin's cleanse, DSD Multipodus boots worn at all times Podiatry will continue to follow
[2018-10-16] MEDS: Pantoprazole 40 mg EC Tab PO SCH (06:40)
[2018-10-16] MEDS: Piperacillin/Tazobact 3.375 GM in Sodium Chloride 0.9% 100 ML IVPB SCH ×3 (06:41→21:32)
[2018-10-16] MEDS: Insulin Lispro (humaLOG) 100 Units/ml Inj SC SCH ×4 (09:11→22:30)
--- NOTE | 2018-10-16 12:53 | CP.PCM.PN ---
Subjective - Date & Time of Evaluation Date of Evaluation: 10/16/18 Time of Evaluation: 08:00 - Subjective Subjective: afeb nad iv rx renewed Objective - Vital Signs/Intake and Output Vital Signs (last 24 hours): Temp Pulse Resp BP Pulse Ox 97.5 F L 68 19 111/65 100 10/16/18 08:15 10/16/18 08:15 10/16/18 08:15 10/16/18 09:12 10/16/18 08:15 - Medications Medications: Current Medications Acetaminophen (Tylenol 325mg Tab) 650 mg PO Q6 PRN PRN Reason: Pain, moderate (4-7) Last Admin: 10/16/18 09:18 Dose: 650 mg Aspirin (Ecotrin) 81 mg PO DAILY [facility] Last Admin: 10/16/18 09:10 Dose: 81 mg Atorvastatin Calcium (Lipitor) 80 mg PO DAILY@2100 [facility] Last Admin: 10/15/18 21:29 Dose: 80 mg Clopidogrel Bisulfate (Plavix) 75 mg PO DAILY [facility] Last Admin: 10/16/18 09:13 Dose: 75 mg Diphenhydramine HCl (Benadryl) 25 mg PO Q6 PRN PRN Reason: Itching / Pruritus Last Admin: 10/15/18 22:45 Dose: 25 mg Furosemide (Lasix) 40 mg PO DAILY [facility] Last Admin: 10/16/18 09:12 Dose: 40 mg Gabapentin (Neurontin) 100 mg PO DAILY [facility] Last Admin: 10/16/18 09:13 Dose: 100 mg Guaifenesin/Dextromethorphan (Robitussin Dm) 10 ml PO Q6 PRN PRN Reason: Cough Last Admin: 09/24/18 00:58 Dose: 10 ml Heparin Sodium (Porcine) (Heparin) 5,000 units SC Q8 [facility]; Protocol Last Admin: 10/16/18 09:11 Dose: 5,000 units Piperacillin Sod/Tazobactam (Sod 3.375 gm/ Sodium Chloride) 100 mls @ 100 mls/hr IVPB Q8H [facility]; Protocol Last Admin: 10/16/18 06:41 Dose: 100 mls/hr Insulin Human Lispro (Humalog) 0 units SC QID [facility]; Protocol Last Admin: 10/16/18 09:11 Dose: Not Given Isosorbide Mononitrate (Imdur Er) 30 mg PO DAILY [facility] Last Admin: 10/16/18 09:11 Dose: 30 mg Lactic Acid (Lac-Hydrin 12% Lotion (225 G)) 1 applic TOP TID [facility] Last Admin: 10/16/18 09:12 Dose: Not Given Lactulose (Enulose) 20 gm PO DAILY PRN PRN Reason: Constipation Metoprolol Tartrate (Lopressor) 12.5 mg PO Q12 [facility] Last Admin: 10/16/18 09:13 Dose: 12.5 mg Montelukast Sodium (Singulair) 10 mg PO HS [facility] Last Admin: 10/15/18 21:28 Dose: 10 mg Ondansetron HCl (Zofran Inj) 4 mg IVP Q6 PRN PRN Reason: Nausea/Vomiting Last Admin: 10/10/18 09:13 Dose: 4 mg Pantoprazole Sodium (Protonix Ec Tab) 40 mg PO DAILY@0600 [facility] Last Admin: 10/16/18 06:40 Dose: 40 mg Sodium Hypochlorite (Dakins Solution 0.125%) 20 appl TOP DAILY [facility] Last Admin: 10/16/18 09:10 Dose: Not Given Spironolactone (Aldactone) 25 mg PO DAILY [facility] Last Admin: 10/16/18 09:09 Dose: 25 mg - Labs Labs: 10/11/18 05:35 10/11/18 05:35 - Constitutional Appears: Non-toxic, Chronically Ill - Head Exam Head Exam: NORMOCEPHALIC - Eye Exam Eye Exam: PERRL. absent: Scleral icterus - ENT Exam ENT Exam: Mucous Membranes Dry - Neck Exam Neck Exam: absent: Lymphadenopathy - Respiratory Exam Respiratory Exam: Decreased Breath Sounds - Cardiovascular Exam Cardiovascular Exam: REGULAR RHYTHM - GI/Abdominal Exam GI & Abdominal Exam: Distended - Rectal Exam Rectal Exam: Deferred - Exam Exam: NORMAL INSPECTION - Extremities Exam Extremities Exam: Pedal Edema - Back Exam Back Exam: absent: CVA tenderness (L), CVA tenderness (R) - Neurological Exam Neurological Exam: Alert, Awake, Oriented x3 Assessment and Plan (1) Diabetic foot ulcer Status: Acute (2) Type 1 diabetes mellitus with diabetic foot infection Status: Acute - Assessment and Plan (Free Text) Assessment: cont iv rx for OM right foot
[2018-10-17] MEDS: Piperacillin/Tazobact 3.375 GM in Sodium Chloride 0.9% 100 ML IVPB SCH ×3 (05:52→21:29)
[2018-10-17] MEDS: Pantoprazole 40 mg EC Tab PO SCH (05:52)
[2018-10-17] MEDS: Insulin Lispro (humaLOG) 100 Units/ml Inj SC SCH ×4 (09:15→21:31)
--- NOTE | 2018-10-17 11:44 | CP.PCM.PN ---
Subjective - Date & Time of Evaluation Date of Evaluation: 10/17/18 Time of Evaluation: 11:40 - Subjective Subjective: Podiatry - Dr. Smith 72 y/o female seen and evaluated at bedside for right heel ulceration. Patient resting comfortably, hemodynamically stable and NAD. No acute events overnight. No new lower extremity complaints per patient. Dressing to RLE clean/dry/intact with no strikethrough present. Multipodus boots on b/l. Denies n/v/f/d/c/so b/hu/cp. Objective - Vital Signs/Intake and Output Vital Signs (last 24 hours): Temp Pulse Resp BP Pulse Ox 97.7 F 73 19 116/53 L 97 10/17/18 08:26 10/17/18 09:16 10/17/18 08:26 10/17/18 09:16 10/17/18 08:26 - Medications Medications: Current Medications Acetaminophen (Tylenol 325mg Tab) 650 mg PO Q6 PRN PRN Reason: Pain, moderate (4-7) Last Admin: 10/16/18 09:18 Dose: 650 mg Aspirin (Ecotrin) 81 mg PO DAILY [facility] Last Admin: 10/17/18 09:15 Dose: 81 mg Atorvastatin Calcium (Lipitor) 80 mg PO DAILY@2100 [facility] Last Admin: 10/16/18 21:33 Dose: 80 mg Clopidogrel Bisulfate (Plavix) 75 mg PO DAILY [facility] Last Admin: 10/17/18 09:17 Dose: 75 mg Diphenhydramine HCl (Benadryl) 25 mg PO Q6 PRN PRN Reason: Itching / Pruritus Last Admin: 10/16/18 21:34 Dose: 25 mg Furosemide (Lasix) 40 mg PO DAILY [facility] Last Admin: 10/17/18 09:16 Dose: 40 mg Gabapentin (Neurontin) 100 mg PO DAILY [facility] Last Admin: 10/17/18 09:17 Dose: 100 mg Guaifenesin/Dextromethorphan (Robitussin Dm) 10 ml PO Q6 PRN PRN Reason: Cough Last Admin: 09/24/18 00:58 Dose: 10 ml Heparin Sodium (Porcine) (Heparin) 5,000 units SC Q8 [facility]; Protocol Last Admin: 10/17/18 09:12 Dose: 5,000 units Piperacillin Sod/Tazobactam (Sod 3.375 gm/ Sodium Chloride) 100 mls @ 100 mls/hr IVPB Q8H [facility]; Protocol Last Admin: 10/17/18 05:52 Dose: 100 mls/hr Insulin Human Lispro (Humalog) 0 units SC QID [facility]; Protocol Last Admin: 10/17/18 09:15 Dose: 1 unit Isosorbide Mononitrate (Imdur Er) 30 mg PO DAILY [facility] Last Admin: 10/17/18 09:16 Dose: 30 mg Lactic Acid (Lac-Hydrin 12% Lotion (225 G)) 1 applic TOP TID [facility] Last Admin: 10/16/18 16:51 Dose: Not Given Lactulose (Enulose) 20 gm PO DAILY PRN PRN Reason: Constipation Metoprolol Tartrate (Lopressor) 12.5 mg PO Q12 [facility] Last Admin: 10/17/18 09:16 Dose: 12.5 mg Montelukast Sodium (Singulair) 10 mg PO HS [facility] Last Admin: 10/16/18 21:32 Dose: 10 mg Ondansetron HCl (Zofran Inj) 4 mg IVP Q6 PRN PRN Reason: Nausea/Vomiting Last Admin: 10/10/18 09:13 Dose: 4 mg Pantoprazole Sodium (Protonix Ec Tab) 40 mg PO DAILY@0600 [facility] Last Admin: 10/17/18 05:52 Dose: 40 mg Sodium Hypochlorite (Dakins Solution 0.125%) 20 appl TOP DAILY [facility] Last Admin: 10/17/18 09:14 Dose: Not Given Spironolactone (Aldactone) 25 mg PO DAILY [facility] Last Admin: 10/17/18 09:14 Dose: 25 mg - Labs Labs: 10/11/18 05:35 10/11/18 05:35 - Constitutional Appears: Well, Non-toxic, No Acute Distress - Head Exam Head Exam: ATRAUMATIC, NORMOCEPHALIC - Extremities Exam Additional comments: Vasc: DP/PT pulses non-palpable bilaterally, CFT < 3 sec to all digits, TG warm to warm, +1 pitting edema noted b/l Ortho: No pain on palpation to right heel wounnd; no pain upon calf compression b/l Neuro: Gross sensation intact, protective sensation absent Derm: LLE: No open lesions present; severe xerosis noted circumfirentially RLE: Circular ulceration measuring approximately 4 cm x 3.9cm noted to R heel with 100% granular wound base, much improved, no malodor, minimal sanguinous drainage, no purulence appreciated. No tunneling or tracking appreciated. No probe to bone. No evidence of cellulitis or superficial infection. Healed ulceration noted plantarmedial sub met 1 - Neurological Exam Neurological Exam: Alert, Awake, Oriented x3 - Psychiatric Exam Psychiatric exam: Normal Affect, Normal Mood Assessment and Plan - Assessment and Plan (Free Text) Assessment: 72F with bilateral lower extremity erythema, edema and stage 1 pressure ulceration Plan: Patient seen and evaluated Discussed with attending, Dr. Smith Chart, labs and vitals reviewed- Afebrile R foot x-rays; moderate soft tissue swelling, no OM or fracture, diffuse osteopenia MRI: possible OM of the metatarsals, tarsal bones, hindfoot bones, distal tibia and fibular WENDI/PVR - RIGHT - evidence of moderately hemodynamically significant arterial insufficiency in RLE, LEFT - same -Vascular on board - patient s/p peripheral angio and HEPATOLOGY PHYSICIAN of left SFA with drug coated balloon R wound culture: beta hemolytic group strep B -Continue abx per ID - PICC placed; continue Zosyn to complete 6 weeks for acute OM Continue local wound care: Dakin's cleanse, DSD Multipodus boots worn at all times Podiatry will continue to follow
[2018-10-18] MEDS: Pantoprazole 40 mg EC Tab PO SCH (06:41)
[2018-10-18] MEDS: Piperacillin/Tazobact 3.375 GM in Sodium Chloride 0.9% 100 ML IVPB SCH ×3 (06:42→21:14)
[2018-10-18 08:09] LABS: HEMOGLOBIN 9.6 g/dL (12.0-16.0); MEAN CELL VOLUME 88.8 fl (81.0-99.0); MEAN CORPUSCULAR HEMOGLOBIN 28.8 pg (27.0-31.0); MEAN CORPUSCULAR HGB CONC 32.5 g/dL (33.0-37.0); RBC 3.31 Mil/uL (3.80-5.20); RED CELL DISTRIBUTION WIDTH 15.1 % (11.5-14.5); WHITE BLOOD COUNT 5.7 K/uL (4.8-10.8)
[2018-10-18 08:22] LABS: ALB/GLOB RATIO 0.9 (1.0-2.1); ALBUMIN 3.3 g/dL (3.5-5.0); ALT/SGPT 18 U/L (9-52); AST/SGOT 22 U/L (14-36); BLOOD UREA NITROGEN 25 mg/dl (7-17); CALCIUM 9.3 mg/dL (8.4-10.2); GFR NON-AFRICAN AMERICAN > 60
[2018-10-18] MEDS: Insulin Lispro (humaLOG) 100 Units/ml Inj SC SCH ×4 (08:58→21:19)
[2018-10-19] MEDS: Piperacillin/Tazobact 3.375 GM in Sodium Chloride 0.9% 100 ML IVPB SCH ×3 (06:07→21:56)
[2018-10-19] MEDS: Pantoprazole 40 mg EC Tab PO SCH (06:08)
--- NOTE | 2018-10-19 07:26 | CP.PCM.PN ---
Subjective - Date & Time of Evaluation Date of Evaluation: 10/13/18 Objective - Vital Signs/Intake and Output Vital Signs (last 24 hours): Temp Pulse Resp BP Pulse Ox 98.1 F 62 18 107/63 100 10/19/18 00:01 10/19/18 00:01 10/19/18 00:01 10/19/18 00:01 10/19/18 00:01 - Medications Medications: Current Medications Acetaminophen (Tylenol 325mg Tab) 650 mg PO Q6 PRN PRN Reason: Pain, moderate (4-7) Last Admin: 10/16/18 09:18 Dose: 650 mg Aspirin (Ecotrin) 81 mg PO DAILY [facility] Last Admin: 10/18/18 08:51 Dose: 81 mg Atorvastatin Calcium (Lipitor) 80 mg PO DAILY@2100 [facility] Last Admin: 10/18/18 20:54 Dose: 80 mg Clopidogrel Bisulfate (Plavix) 75 mg PO DAILY [facility] Last Admin: 10/18/18 08:51 Dose: 75 mg Diphenhydramine HCl (Benadryl) 25 mg PO Q6 PRN PRN Reason: Itching / Pruritus Last Admin: 10/17/18 22:26 Dose: 25 mg Furosemide (Lasix) 40 mg PO DAILY [facility] Last Admin: 10/18/18 08:51 Dose: 40 mg Gabapentin (Neurontin) 100 mg PO DAILY [facility] Last Admin: 10/18/18 08:51 Dose: 100 mg Guaifenesin/Dextromethorphan (Robitussin Dm) 10 ml PO Q6 PRN PRN Reason: Cough Last Admin: 09/24/18 00:58 Dose: 10 ml Heparin Sodium (Porcine) (Heparin) 5,000 units SC Q8 [facility]; Protocol Last Admin: 10/19/18 01:21 Dose: 5,000 units Piperacillin Sod/Tazobactam (Sod 3.375 gm/ Sodium Chloride) 100 mls @ 100 mls/hr IVPB Q8H [facility]; Protocol Last Admin: 10/19/18 06:07 Dose: 100 mls/hr Insulin Human Lispro (Humalog) 0 units SC QID [facility]; Protocol Last Admin: 10/18/18 21:19 Dose: Not Given Isosorbide Mononitrate (Imdur Er) 30 mg PO DAILY [facility] Last Admin: 10/18/18 08:51 Dose: 30 mg Lactic Acid (Lac-Hydrin 12% Lotion (225 G)) 1 applic TOP TID [facility] Last Admin: 10/18/18 17:30 Dose: Not Given Lactulose (Enulose) 20 gm PO DAILY PRN PRN Reason: Constipation Metoprolol Tartrate (Lopressor) 12.5 mg PO Q12 [facility] Last Admin: 10/18/18 20:52 Dose: 12.5 mg Mirtazapine (Remeron) 7.5 mg PO HS [facility] Last Admin: 10/18/18 21:00 Dose: 7.5 mg Montelukast Sodium (Singulair) 10 mg PO HS [facility] Last Admin: 10/18/18 21:00 Dose: 10 mg Ondansetron HCl (Zofran Inj) 4 mg IVP Q6 PRN PRN Reason: Nausea/Vomiting Last Admin: 10/10/18 09:13 Dose: 4 mg Pantoprazole Sodium (Protonix Ec Tab) 40 mg PO DAILY@0600 [facility] Last Admin: 10/19/18 06:08 Dose: 40 mg Sodium Hypochlorite (Dakins Solution 0.125%) 20 appl TOP DAILY [facility] Last Admin: 10/18/18 08:59 Dose: Not Given Spironolactone (Aldactone) 25 mg PO DAILY [facility] Last Admin: 10/18/18 08:50 Dose: 25 mg - Labs Labs: 10/18/18 07:50 10/18/18 07:50 Assessment and Plan (1) 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
--- NOTE | 2018-10-19 07:27 | CP.PCM.PN ---
Subjective - Date & Time of Evaluation Date of Evaluation: 10/15/18 Objective - Vital Signs/Intake and Output Vital Signs (last 24 hours): Temp Pulse Resp BP Pulse Ox 98.1 F 62 18 107/63 100 10/19/18 00:01 10/19/18 00:01 10/19/18 00:01 10/19/18 00:01 10/19/18 00:01 - Medications Medications: Current Medications Acetaminophen (Tylenol 325mg Tab) 650 mg PO Q6 PRN PRN Reason: Pain, moderate (4-7) Last Admin: 10/16/18 09:18 Dose: 650 mg Aspirin (Ecotrin) 81 mg PO DAILY [facility] Last Admin: 10/18/18 08:51 Dose: 81 mg Atorvastatin Calcium (Lipitor) 80 mg PO DAILY@2100 [facility] Last Admin: 10/18/18 20:54 Dose: 80 mg Clopidogrel Bisulfate (Plavix) 75 mg PO DAILY [facility] Last Admin: 10/18/18 08:51 Dose: 75 mg Diphenhydramine HCl (Benadryl) 25 mg PO Q6 PRN PRN Reason: Itching / Pruritus Last Admin: 10/17/18 22:26 Dose: 25 mg Furosemide (Lasix) 40 mg PO DAILY [facility] Last Admin: 10/18/18 08:51 Dose: 40 mg Gabapentin (Neurontin) 100 mg PO DAILY [facility] Last Admin: 10/18/18 08:51 Dose: 100 mg Guaifenesin/Dextromethorphan (Robitussin Dm) 10 ml PO Q6 PRN PRN Reason: Cough Last Admin: 09/24/18 00:58 Dose: 10 ml Heparin Sodium (Porcine) (Heparin) 5,000 units SC Q8 [facility]; Protocol Last Admin: 10/19/18 01:21 Dose: 5,000 units Piperacillin Sod/Tazobactam (Sod 3.375 gm/ Sodium Chloride) 100 mls @ 100 mls/hr IVPB Q8H [facility]; Protocol Last Admin: 10/19/18 06:07 Dose: 100 mls/hr Insulin Human Lispro (Humalog) 0 units SC QID [facility]; Protocol Last Admin: 10/18/18 21:19 Dose: Not Given Isosorbide Mononitrate (Imdur Er) 30 mg PO DAILY [facility] Last Admin: 10/18/18 08:51 Dose: 30 mg Lactic Acid (Lac-Hydrin 12% Lotion (225 G)) 1 applic TOP TID [facility] Last Admin: 10/18/18 17:30 Dose: Not Given Lactulose (Enulose) 20 gm PO DAILY PRN PRN Reason: Constipation Metoprolol Tartrate (Lopressor) 12.5 mg PO Q12 [facility] Last Admin: 10/18/18 20:52 Dose: 12.5 mg Mirtazapine (Remeron) 7.5 mg PO HS [facility] Last Admin: 10/18/18 21:00 Dose: 7.5 mg Montelukast Sodium (Singulair) 10 mg PO HS [facility] Last Admin: 10/18/18 21:00 Dose: 10 mg Ondansetron HCl (Zofran Inj) 4 mg IVP Q6 PRN PRN Reason: Nausea/Vomiting Last Admin: 10/10/18 09:13 Dose: 4 mg Pantoprazole Sodium (Protonix Ec Tab) 40 mg PO DAILY@0600 [facility] Last Admin: 10/19/18 06:08 Dose: 40 mg Sodium Hypochlorite (Dakins Solution 0.125%) 20 appl TOP DAILY [facility] Last Admin: 10/18/18 08:59 Dose: Not Given Spironolactone (Aldactone) 25 mg PO DAILY [facility] Last Admin: 10/18/18 08:50 Dose: 25 mg - Labs Labs: 10/18/18 07:50 10/18/18 07:50 Assessment and Plan (1) 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
--- NOTE | 2018-10-19 07:27 | CP.PCM.PN ---
Subjective - Date & Time of Evaluation Date of Evaluation: 10/14/18 Objective - Vital Signs/Intake and Output Vital Signs (last 24 hours): Temp Pulse Resp BP Pulse Ox 98.1 F 62 18 107/63 100 10/19/18 00:01 10/19/18 00:01 10/19/18 00:01 10/19/18 00:01 10/19/18 00:01 - Medications Medications: Current Medications Acetaminophen (Tylenol 325mg Tab) 650 mg PO Q6 PRN PRN Reason: Pain, moderate (4-7) Last Admin: 10/16/18 09:18 Dose: 650 mg Aspirin (Ecotrin) 81 mg PO DAILY [facility] Last Admin: 10/18/18 08:51 Dose: 81 mg Atorvastatin Calcium (Lipitor) 80 mg PO DAILY@2100 [facility] Last Admin: 10/18/18 20:54 Dose: 80 mg Clopidogrel Bisulfate (Plavix) 75 mg PO DAILY [facility] Last Admin: 10/18/18 08:51 Dose: 75 mg Diphenhydramine HCl (Benadryl) 25 mg PO Q6 PRN PRN Reason: Itching / Pruritus Last Admin: 10/17/18 22:26 Dose: 25 mg Furosemide (Lasix) 40 mg PO DAILY [facility] Last Admin: 10/18/18 08:51 Dose: 40 mg Gabapentin (Neurontin) 100 mg PO DAILY [facility] Last Admin: 10/18/18 08:51 Dose: 100 mg Guaifenesin/Dextromethorphan (Robitussin Dm) 10 ml PO Q6 PRN PRN Reason: Cough Last Admin: 09/24/18 00:58 Dose: 10 ml Heparin Sodium (Porcine) (Heparin) 5,000 units SC Q8 [facility]; Protocol Last Admin: 10/19/18 01:21 Dose: 5,000 units Piperacillin Sod/Tazobactam (Sod 3.375 gm/ Sodium Chloride) 100 mls @ 100 mls/hr IVPB Q8H [facility]; Protocol Last Admin: 10/19/18 06:07 Dose: 100 mls/hr Insulin Human Lispro (Humalog) 0 units SC QID [facility]; Protocol Last Admin: 10/18/18 21:19 Dose: Not Given Isosorbide Mononitrate (Imdur Er) 30 mg PO DAILY [facility] Last Admin: 10/18/18 08:51 Dose: 30 mg Lactic Acid (Lac-Hydrin 12% Lotion (225 G)) 1 applic TOP TID [facility] Last Admin: 10/18/18 17:30 Dose: Not Given Lactulose (Enulose) 20 gm PO DAILY PRN PRN Reason: Constipation Metoprolol Tartrate (Lopressor) 12.5 mg PO Q12 [facility] Last Admin: 10/18/18 20:52 Dose: 12.5 mg Mirtazapine (Remeron) 7.5 mg PO HS [facility] Last Admin: 10/18/18 21:00 Dose: 7.5 mg Montelukast Sodium (Singulair) 10 mg PO HS [facility] Last Admin: 10/18/18 21:00 Dose: 10 mg Ondansetron HCl (Zofran Inj) 4 mg IVP Q6 PRN PRN Reason: Nausea/Vomiting Last Admin: 10/10/18 09:13 Dose: 4 mg Pantoprazole Sodium (Protonix Ec Tab) 40 mg PO DAILY@0600 [facility] Last Admin: 10/19/18 06:08 Dose: 40 mg Sodium Hypochlorite (Dakins Solution 0.125%) 20 appl TOP DAILY [facility] Last Admin: 10/18/18 08:59 Dose: Not Given Spironolactone (Aldactone) 25 mg PO DAILY [facility] Last Admin: 10/18/18 08:50 Dose: 25 mg - Labs Labs: 10/18/18 07:50 10/18/18 07:50 Assessment and Plan (1) 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
--- NOTE | 2018-10-19 07:28 | CP.PCM.PN ---
Subjective - Date & Time of Evaluation Date of Evaluation: 10/17/18 Objective - Vital Signs/Intake and Output Vital Signs (last 24 hours): Temp Pulse Resp BP Pulse Ox 98.1 F 62 18 107/63 100 10/19/18 00:01 10/19/18 00:01 10/19/18 00:01 10/19/18 00:01 10/19/18 00:01 - Medications Medications: Current Medications Acetaminophen (Tylenol 325mg Tab) 650 mg PO Q6 PRN PRN Reason: Pain, moderate (4-7) Last Admin: 10/16/18 09:18 Dose: 650 mg Aspirin (Ecotrin) 81 mg PO DAILY [facility] Last Admin: 10/18/18 08:51 Dose: 81 mg Atorvastatin Calcium (Lipitor) 80 mg PO DAILY@2100 [facility] Last Admin: 10/18/18 20:54 Dose: 80 mg Clopidogrel Bisulfate (Plavix) 75 mg PO DAILY [facility] Last Admin: 10/18/18 08:51 Dose: 75 mg Diphenhydramine HCl (Benadryl) 25 mg PO Q6 PRN PRN Reason: Itching / Pruritus Last Admin: 10/17/18 22:26 Dose: 25 mg Furosemide (Lasix) 40 mg PO DAILY [facility] Last Admin: 10/18/18 08:51 Dose: 40 mg Gabapentin (Neurontin) 100 mg PO DAILY [facility] Last Admin: 10/18/18 08:51 Dose: 100 mg Guaifenesin/Dextromethorphan (Robitussin Dm) 10 ml PO Q6 PRN PRN Reason: Cough Last Admin: 09/24/18 00:58 Dose: 10 ml Heparin Sodium (Porcine) (Heparin) 5,000 units SC Q8 [facility]; Protocol Last Admin: 10/19/18 01:21 Dose: 5,000 units Piperacillin Sod/Tazobactam (Sod 3.375 gm/ Sodium Chloride) 100 mls @ 100 mls/hr IVPB Q8H [facility]; Protocol Last Admin: 10/19/18 06:07 Dose: 100 mls/hr Insulin Human Lispro (Humalog) 0 units SC QID [facility]; Protocol Last Admin: 10/18/18 21:19 Dose: Not Given Isosorbide Mononitrate (Imdur Er) 30 mg PO DAILY [facility] Last Admin: 10/18/18 08:51 Dose: 30 mg Lactic Acid (Lac-Hydrin 12% Lotion (225 G)) 1 applic TOP TID [facility] Last Admin: 10/18/18 17:30 Dose: Not Given Lactulose (Enulose) 20 gm PO DAILY PRN PRN Reason: Constipation Metoprolol Tartrate (Lopressor) 12.5 mg PO Q12 [facility] Last Admin: 10/18/18 20:52 Dose: 12.5 mg Mirtazapine (Remeron) 7.5 mg PO HS [facility] Last Admin: 10/18/18 21:00 Dose: 7.5 mg Montelukast Sodium (Singulair) 10 mg PO HS [facility] Last Admin: 10/18/18 21:00 Dose: 10 mg Ondansetron HCl (Zofran Inj) 4 mg IVP Q6 PRN PRN Reason: Nausea/Vomiting Last Admin: 10/10/18 09:13 Dose: 4 mg Pantoprazole Sodium (Protonix Ec Tab) 40 mg PO DAILY@0600 [facility] Last Admin: 10/19/18 06:08 Dose: 40 mg Sodium Hypochlorite (Dakins Solution 0.125%) 20 appl TOP DAILY [facility] Last Admin: 10/18/18 08:59 Dose: Not Given Spironolactone (Aldactone) 25 mg PO DAILY [facility] Last Admin: 10/18/18 08:50 Dose: 25 mg - Labs Labs: 10/18/18 07:50 10/18/18 07:50 Assessment and Plan (1) 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
--- NOTE | 2018-10-19 07:28 | CP.PCM.PN ---
Subjective - Date & Time of Evaluation Date of Evaluation: 10/16/18 Objective - Vital Signs/Intake and Output Vital Signs (last 24 hours): Temp Pulse Resp BP Pulse Ox 98.1 F 62 18 107/63 100 10/19/18 00:01 10/19/18 00:01 10/19/18 00:01 10/19/18 00:01 10/19/18 00:01 - Medications Medications: Current Medications Acetaminophen (Tylenol 325mg Tab) 650 mg PO Q6 PRN PRN Reason: Pain, moderate (4-7) Last Admin: 10/16/18 09:18 Dose: 650 mg Aspirin (Ecotrin) 81 mg PO DAILY [facility] Last Admin: 10/18/18 08:51 Dose: 81 mg Atorvastatin Calcium (Lipitor) 80 mg PO DAILY@2100 [facility] Last Admin: 10/18/18 20:54 Dose: 80 mg Clopidogrel Bisulfate (Plavix) 75 mg PO DAILY [facility] Last Admin: 10/18/18 08:51 Dose: 75 mg Diphenhydramine HCl (Benadryl) 25 mg PO Q6 PRN PRN Reason: Itching / Pruritus Last Admin: 10/17/18 22:26 Dose: 25 mg Furosemide (Lasix) 40 mg PO DAILY [facility] Last Admin: 10/18/18 08:51 Dose: 40 mg Gabapentin (Neurontin) 100 mg PO DAILY [facility] Last Admin: 10/18/18 08:51 Dose: 100 mg Guaifenesin/Dextromethorphan (Robitussin Dm) 10 ml PO Q6 PRN PRN Reason: Cough Last Admin: 09/24/18 00:58 Dose: 10 ml Heparin Sodium (Porcine) (Heparin) 5,000 units SC Q8 [facility]; Protocol Last Admin: 10/19/18 01:21 Dose: 5,000 units Piperacillin Sod/Tazobactam (Sod 3.375 gm/ Sodium Chloride) 100 mls @ 100 mls/hr IVPB Q8H [facility]; Protocol Last Admin: 10/19/18 06:07 Dose: 100 mls/hr Insulin Human Lispro (Humalog) 0 units SC QID [facility]; Protocol Last Admin: 10/18/18 21:19 Dose: Not Given Isosorbide Mononitrate (Imdur Er) 30 mg PO DAILY [facility] Last Admin: 10/18/18 08:51 Dose: 30 mg Lactic Acid (Lac-Hydrin 12% Lotion (225 G)) 1 applic TOP TID [facility] Last Admin: 10/18/18 17:30 Dose: Not Given Lactulose (Enulose) 20 gm PO DAILY PRN PRN Reason: Constipation Metoprolol Tartrate (Lopressor) 12.5 mg PO Q12 [facility] Last Admin: 10/18/18 20:52 Dose: 12.5 mg Mirtazapine (Remeron) 7.5 mg PO HS [facility] Last Admin: 10/18/18 21:00 Dose: 7.5 mg Montelukast Sodium (Singulair) 10 mg PO HS [facility] Last Admin: 10/18/18 21:00 Dose: 10 mg Ondansetron HCl (Zofran Inj) 4 mg IVP Q6 PRN PRN Reason: Nausea/Vomiting Last Admin: 10/10/18 09:13 Dose: 4 mg Pantoprazole Sodium (Protonix Ec Tab) 40 mg PO DAILY@0600 [facility] Last Admin: 10/19/18 06:08 Dose: 40 mg Sodium Hypochlorite (Dakins Solution 0.125%) 20 appl TOP DAILY [facility] Last Admin: 10/18/18 08:59 Dose: Not Given Spironolactone (Aldactone) 25 mg PO DAILY [facility] Last Admin: 10/18/18 08:50 Dose: 25 mg - Labs Labs: 10/18/18 07:50 10/18/18 07:50 Assessment and Plan (1) 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
--- NOTE | 2018-10-19 07:29 | CP.PCM.PN ---
Subjective - Date & Time of Evaluation Date of Evaluation: 10/18/18 Objective - Vital Signs/Intake and Output Vital Signs (last 24 hours): Temp Pulse Resp BP Pulse Ox 98.1 F 62 18 107/63 100 10/19/18 00:01 10/19/18 00:01 10/19/18 00:01 10/19/18 00:01 10/19/18 00:01 - Medications Medications: Current Medications Acetaminophen (Tylenol 325mg Tab) 650 mg PO Q6 PRN PRN Reason: Pain, moderate (4-7) Last Admin: 10/16/18 09:18 Dose: 650 mg Aspirin (Ecotrin) 81 mg PO DAILY [facility] Last Admin: 10/18/18 08:51 Dose: 81 mg Atorvastatin Calcium (Lipitor) 80 mg PO DAILY@2100 [facility] Last Admin: 10/18/18 20:54 Dose: 80 mg Clopidogrel Bisulfate (Plavix) 75 mg PO DAILY [facility] Last Admin: 10/18/18 08:51 Dose: 75 mg Diphenhydramine HCl (Benadryl) 25 mg PO Q6 PRN PRN Reason: Itching / Pruritus Last Admin: 10/17/18 22:26 Dose: 25 mg Furosemide (Lasix) 40 mg PO DAILY [facility] Last Admin: 10/18/18 08:51 Dose: 40 mg Gabapentin (Neurontin) 100 mg PO DAILY [facility] Last Admin: 10/18/18 08:51 Dose: 100 mg Guaifenesin/Dextromethorphan (Robitussin Dm) 10 ml PO Q6 PRN PRN Reason: Cough Last Admin: 09/24/18 00:58 Dose: 10 ml Heparin Sodium (Porcine) (Heparin) 5,000 units SC Q8 [facility]; Protocol Last Admin: 10/19/18 01:21 Dose: 5,000 units Piperacillin Sod/Tazobactam (Sod 3.375 gm/ Sodium Chloride) 100 mls @ 100 mls/hr IVPB Q8H [facility]; Protocol Last Admin: 10/19/18 06:07 Dose: 100 mls/hr Insulin Human Lispro (Humalog) 0 units SC QID [facility]; Protocol Last Admin: 10/18/18 21:19 Dose: Not Given Isosorbide Mononitrate (Imdur Er) 30 mg PO DAILY [facility] Last Admin: 10/18/18 08:51 Dose: 30 mg Lactic Acid (Lac-Hydrin 12% Lotion (225 G)) 1 applic TOP TID [facility] Last Admin: 10/18/18 17:30 Dose: Not Given Lactulose (Enulose) 20 gm PO DAILY PRN PRN Reason: Constipation Metoprolol Tartrate (Lopressor) 12.5 mg PO Q12 [facility] Last Admin: 10/18/18 20:52 Dose: 12.5 mg Mirtazapine (Remeron) 7.5 mg PO HS [facility] Last Admin: 10/18/18 21:00 Dose: 7.5 mg Montelukast Sodium (Singulair) 10 mg PO HS [facility] Last Admin: 10/18/18 21:00 Dose: 10 mg Ondansetron HCl (Zofran Inj) 4 mg IVP Q6 PRN PRN Reason: Nausea/Vomiting Last Admin: 10/10/18 09:13 Dose: 4 mg Pantoprazole Sodium (Protonix Ec Tab) 40 mg PO DAILY@0600 [facility] Last Admin: 10/19/18 06:08 Dose: 40 mg Sodium Hypochlorite (Dakins Solution 0.125%) 20 appl TOP DAILY [facility] Last Admin: 10/18/18 08:59 Dose: Not Given Spironolactone (Aldactone) 25 mg PO DAILY [facility] Last Admin: 10/18/18 08:50 Dose: 25 mg - Labs Labs: 10/18/18 07:50 10/18/18 07:50 Assessment and Plan (1) 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
[2018-10-19] MEDS: Insulin Lispro (humaLOG) 100 Units/ml Inj SC SCH ×4 (09:39→22:30)
--- NOTE | 2018-10-19 11:49 | CP.PCM.PN ---
Subjective - Date & Time of Evaluation Date of Evaluation: 10/19/18 Time of Evaluation: 11:49 - Subjective Subjective: Podiatry Progress Note - Dr. Smith 72 y/o female seen and evaluated at bedside this morning for right plantar heel ulceration. Patient resting comfortably, hemodynamically stable and NAD. Patient denies any acute events overnight. Admits to occasional tingling and sensitivity in the foot due to her neuropathy. Dressing to RLE clean/dry/intact with no strikethrough present. Multipodus boots are in place. Denies F/C/N/V/CP/SOB Objective - Vital Signs/Intake and Output Vital Signs (last 24 hours): Temp Pulse Resp BP Pulse Ox 97.7 F 66 19 104/63 100 10/19/18 07:56 10/19/18 07:56 10/19/18 07:56 10/19/18 09:39 10/19/18 07:56 - Medications Medications: Current Medications Acetaminophen (Tylenol 325mg Tab) 650 mg PO Q6 PRN PRN Reason: Pain, moderate (4-7) Last Admin: 10/16/18 09:18 Dose: 650 mg Aspirin (Ecotrin) [address] [facility] Last Admin: 10/19/18 09:35 Dose: 81 mg Atorvastatin Calcium (Lipitor) 80 mg PO DAILY@2100 [facility] Last Admin: 10/18/18 20:54 Dose: 80 mg Clopidogrel Bisulfate (Plavix) [address] [facility] Last Admin: 10/19/18 09:37 Dose: 75 mg Diphenhydramine HCl (Benadryl) 25 mg PO Q6 PRN PRN Reason: Itching / Pruritus Last Admin: 10/17/18 22:26 Dose: 25 mg Furosemide (Lasix) [address] [facility] Last Admin: 10/19/18 09:39 Dose: 40 mg Gabapentin (Neurontin) [address] [facility] Last Admin: 10/19/18 09:37 Dose: 100 mg Guaifenesin/Dextromethorphan (Robitussin Dm) 10 ml PO Q6 PRN PRN Reason: Cough Last Admin: 09/24/18 00:58 Dose: 10 ml Heparin Sodium (Porcine) (Heparin) 5,[address] [facility]; Protocol Last Admin: 10/19/18 09:39 Dose: 5,000 units Piperacillin Sod/Tazobactam (Sod 3.375 gm/ Sodium Chloride) 100 mls @ 100 mls/hr IVPB Q8H [facility]; Protocol Last Admin: 10/19/18 06:07 Dose: 100 mls/hr Insulin Human Lispro (Humalog) [address] [facility]; Protocol Last Admin: 10/19/18 09:39 Dose: Not Given Isosorbide Mononitrate (Imdur Er) [address] [facility] Last Admin: 10/19/18 09:37 Dose: 30 mg Lactic Acid (Lac-Hydrin 12% Lotion (225 G)) [address] [facility] Last Admin: 10/19/18 09:33 Dose: Not Given Lactulose (Enulose) 20 gm PO DAILY PRN PRN Reason: Constipation Metoprolol Tartrate (Lopressor) 12.[address] [facility] Last Admin: 10/19/18 09:35 Dose: 12.5 mg Mirtazapine (Remeron) 7.[address] [facility] Last Admin: 10/18/18 21:00 Dose: 7.5 mg Montelukast Sodium (Singulair) [address] [facility] Last Admin: 10/18/18 21:00 Dose: 10 mg Ondansetron HCl (Zofran Inj) 4 mg IVP Q6 PRN PRN Reason: Nausea/Vomiting Last Admin: 10/10/18 09:13 Dose: 4 mg Pantoprazole Sodium (Protonix Ec Tab) 40 mg PO DAILY@0600 [facility] Last Admin: 10/19/18 06:08 Dose: 40 mg Sodium Hypochlorite (Dakins Solution 0.125%) [address] [facility] Last Admin: 10/19/18 09:49 Dose: Not Given Spironolactone (Aldactone) [address] [facility] Last Admin: 10/19/18 09:34 Dose: 25 mg - Labs Labs: 10/18/18 07:50 10/18/18 07:50 - Constitutional Appears: Well, Non-toxic, No Acute Distress - Extremities Exam Additional comments: Right lower extremity exam: Vasc: DP/PT pulses non-palpable. CFT < 3 sec to all digits, TG warm to warm, +1 pitting edema noted to leg extending distally to digits. Mottled hyperpigmented tented skin to leg Ortho: Charcot foot deformity noted with rocker bottom foot. No pain on palpation to right heel wound. no pain upon calf compression Neuro: Gross sensation intact, protective sensation absent Derm: Circular ulceration measuring approximately 4 cm x 3.9cm noted to R heel with 100% granular wound base, much improved, no malodor, minimal sanguinous drainage, no purulence appreciated. No tunneling or tracking appreciated. No probe to bone. No evidence of cellulitis or superficial infection. Healed ulceration noted plantarmedial sub met 1 - Neurological Exam Neurological Exam: Alert, Awake, Oriented x3 - Psychiatric Exam Psychiatric exam: Normal Affect, Normal Mood Assessment and Plan - Assessment and Plan (Free Text) Assessment: 72 y/o female with plantar heel ulceration and lower extremity edema Plan: Patient seen and evaluated Discussed with attending, Dr. 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
[2018-10-20] MEDS: Pantoprazole 40 mg EC Tab PO SCH (06:18)
[2018-10-20] MEDS: Piperacillin/Tazobact 3.375 GM in Sodium Chloride 0.9% 100 ML IVPB SCH ×3 (06:19→22:03)
[2018-10-20] MEDS: Insulin Lispro (humaLOG) 100 Units/ml Inj SC SCH ×4 (09:58→22:04)
--- NOTE | 2018-10-21 03:14 | CP.PCM.PN ---
Subjective - Date & Time of Evaluation Date of Evaluation: 10/19/18 Objective - Vital Signs/Intake and Output Vital Signs (last 24 hours): Temp Pulse Resp BP Pulse Ox 98.8 F 70 19 101/59 L 100 10/21/18 00:30 10/21/18 00:30 10/21/18 00:30 10/21/18 00:30 10/21/18 00:30 - Medications Medications: Current Medications Acetaminophen (Tylenol 325mg Tab) 650 mg PO Q6 PRN PRN Reason: Pain, moderate (4-7) Last Admin: 10/16/18 09:18 Dose: 650 mg Aspirin (Ecotrin) 81 mg PO DAILY [facility] Last Admin: 10/20/18 10:00 Dose: 81 mg Atorvastatin Calcium (Lipitor) 80 mg PO DAILY@2100 [facility] Last Admin: 10/20/18 20:24 Dose: 80 mg Clopidogrel Bisulfate (Plavix) 75 mg PO DAILY [facility] Last Admin: 10/20/18 10:00 Dose: 75 mg Diphenhydramine HCl (Benadryl) 25 mg PO Q6 PRN PRN Reason: Itching / Pruritus Last Admin: 10/17/18 22:26 Dose: 25 mg Furosemide (Lasix) 40 mg PO DAILY [facility] Last Admin: 10/20/18 10:01 Dose: 40 mg Gabapentin (Neurontin) 100 mg PO DAILY [facility] Last Admin: 10/20/18 10:03 Dose: 100 mg Guaifenesin/Dextromethorphan (Robitussin Dm) 10 ml PO Q6 PRN PRN Reason: Cough Last Admin: 09/24/18 00:58 Dose: 10 ml Heparin Sodium (Porcine) (Heparin) 5,000 units SC Q8 [facility]; Protocol Last Admin: 10/21/18 01:02 Dose: 5,000 units Piperacillin Sod/Tazobactam (Sod 3.375 gm/ Sodium Chloride) 100 mls @ 100 mls/hr IVPB Q8H [facility]; Protocol Last Admin: 10/20/18 22:03 Dose: 100 mls/hr Insulin Human Lispro (Humalog) 0 units SC QID [facility]; Protocol Last Admin: 10/20/18 22:04 Dose: Not Given Isosorbide Mononitrate (Imdur Er) 30 mg PO DAILY [facility] Last Admin: 10/20/18 10:02 Dose: 30 mg Lactic Acid (Lac-Hydrin 12% Lotion (225 G)) 1 applic TOP TID [facility] Last Admin: 10/20/18 17:59 Dose: Not Given Lactulose (Enulose) 20 gm PO DAILY PRN PRN Reason: Constipation Metoprolol Tartrate (Lopressor) 12.5 mg PO Q12 [facility] Last Admin: 10/20/18 20:25 Dose: Not Given Mirtazapine (Remeron) 7.5 mg PO HS [facility] Last Admin: 10/20/18 22:02 Dose: 7.5 mg Montelukast Sodium (Singulair) 10 mg PO HS [facility] Last Admin: 10/20/18 22:02 Dose: 10 mg Ondansetron HCl (Zofran Inj) 4 mg IVP Q6 PRN PRN Reason: Nausea/Vomiting Last Admin: 10/10/18 09:13 Dose: 4 mg Pantoprazole Sodium (Protonix Ec Tab) 40 mg PO DAILY@0600 [facility] Last Admin: 10/20/18 06:18 Dose: 40 mg Sodium Hypochlorite (Dakins Solution 0.125%) 20 appl TOP DAILY [facility] Last Admin: 10/19/18 09:49 Dose: Not Given Spironolactone (Aldactone) 25 mg PO DAILY [facility] Last Admin: 10/20/18 10:01 Dose: 25 mg - Labs Labs: 10/18/18 07:50 10/18/18 07:50 Assessment and Plan (1) 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
--- NOTE | 2018-10-21 03:15 | CP.PCM.PN ---
Subjective - Date & Time of Evaluation Date of Evaluation: 10/20/18 Time of Evaluation: 13:10 Objective - Vital Signs/Intake and Output Vital Signs (last 24 hours): Temp Pulse Resp BP Pulse Ox 98.8 F 70 19 101/59 L 100 10/21/18 00:30 10/21/18 00:30 10/21/18 00:30 10/21/18 00:30 10/21/18 00:30 - Medications Medications: Current Medications Acetaminophen (Tylenol 325mg Tab) 650 mg PO Q6 PRN PRN Reason: Pain, moderate (4-7) Last Admin: 10/16/18 09:18 Dose: 650 mg Aspirin (Ecotrin) 81 mg PO DAILY [facility] Last Admin: 10/20/18 10:00 Dose: 81 mg Atorvastatin Calcium (Lipitor) 80 mg PO DAILY@2100 [facility] Last Admin: 10/20/18 20:24 Dose: 80 mg Clopidogrel Bisulfate (Plavix) 75 mg PO DAILY [facility] Last Admin: 10/20/18 10:00 Dose: 75 mg Diphenhydramine HCl (Benadryl) 25 mg PO Q6 PRN PRN Reason: Itching / Pruritus Last Admin: 10/17/18 22:26 Dose: 25 mg Furosemide (Lasix) 40 mg PO DAILY [facility] Last Admin: 10/20/18 10:01 Dose: 40 mg Gabapentin (Neurontin) 100 mg PO DAILY [facility] Last Admin: 10/20/18 10:03 Dose: 100 mg Guaifenesin/Dextromethorphan (Robitussin Dm) 10 ml PO Q6 PRN PRN Reason: Cough Last Admin: 09/24/18 00:58 Dose: 10 ml Heparin Sodium (Porcine) (Heparin) 5,000 units SC Q8 [facility]; Protocol Last Admin: 10/21/18 01:02 Dose: 5,000 units Piperacillin Sod/Tazobactam (Sod 3.375 gm/ Sodium Chloride) 100 mls @ 100 mls/hr IVPB Q8H [facility]; Protocol Last Admin: 10/20/18 22:03 Dose: 100 mls/hr Insulin Human Lispro (Humalog) 0 units SC QID [facility]; Protocol Last Admin: 10/20/18 22:04 Dose: Not Given Isosorbide Mononitrate (Imdur Er) 30 mg PO DAILY [facility] Last Admin: 10/20/18 10:02 Dose: 30 mg Lactic Acid (Lac-Hydrin 12% Lotion (225 G)) 1 applic TOP TID [facility] Last Admin: 10/20/18 17:59 Dose: Not Given Lactulose (Enulose) 20 gm PO DAILY PRN PRN Reason: Constipation Metoprolol Tartrate (Lopressor) 12.5 mg PO Q12 [facility] Last Admin: 10/20/18 20:25 Dose: Not Given Mirtazapine (Remeron) 7.5 mg PO HS [facility] Last Admin: 10/20/18 22:02 Dose: 7.5 mg Montelukast Sodium (Singulair) 10 mg PO HS [facility] Last Admin: 10/20/18 22:02 Dose: 10 mg Ondansetron HCl (Zofran Inj) 4 mg IVP Q6 PRN PRN Reason: Nausea/Vomiting Last Admin: 10/10/18 09:13 Dose: 4 mg Pantoprazole Sodium (Protonix Ec Tab) 40 mg PO DAILY@0600 [facility] Last Admin: 10/20/18 06:18 Dose: 40 mg Sodium Hypochlorite (Dakins Solution 0.125%) 20 appl TOP DAILY [facility] Last Admin: 10/19/18 09:49 Dose: Not Given Spironolactone (Aldactone) 25 mg PO DAILY [facility] Last Admin: 10/20/18 10:01 Dose: 25 mg - Labs Labs: 10/18/18 07:50 10/18/18 07:50 Assessment and Plan (1) 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
[2018-10-21] MEDS: Pantoprazole 40 mg EC Tab PO SCH (05:41)
[2018-10-21] MEDS: Piperacillin/Tazobact 3.375 GM in Sodium Chloride 0.9% 100 ML IVPB SCH ×3 (05:42→22:23)
--- NOTE | 2018-10-21 06:31 | CP.PCM.PN ---
Subjective - Date & Time of Evaluation Date of Evaluation: 10/21/18 Time of Evaluation: 06:30 - Subjective Subjective: Podiatry Progress Note - Dr. Smith 72 y/o female seen and evaluated at bedside this morning for right plantar heel ulceration. Patient resting comfortably, hemodynamically stable and NAD. Patient denies any acute events overnight. Admits to occasional tingling and sensitivity in the foot due to her neuropathy. Dressing to RLE clean/intact with minimal strikethrough present. Multipodus boots are in place. Denies F/C/N/V/CP/SOB Objective - Vital Signs/Intake and Output Vital Signs (last 24 hours): Temp Pulse Resp BP Pulse Ox 98.8 F 70 19 101/59 L 100 10/21/18 00:30 10/21/18 00:30 10/21/18 00:30 10/21/18 00:30 10/21/18 00:30 - Medications Medications: Current Medications Acetaminophen (Tylenol 325mg Tab) 650 mg PO Q6 PRN PRN Reason: Pain, moderate (4-7) Last Admin: 10/16/18 09:18 Dose: 650 mg Aspirin (Ecotrin) 81 mg PO DAILY [facility] Last Admin: 10/20/18 10:00 Dose: 81 mg Atorvastatin Calcium (Lipitor) 80 mg PO DAILY@2100 [facility] Last Admin: 10/20/18 20:24 Dose: 80 mg Clopidogrel Bisulfate (Plavix) 75 mg PO DAILY [facility] Last Admin: 10/20/18 10:00 Dose: 75 mg Diphenhydramine HCl (Benadryl) 25 mg PO Q6 PRN PRN Reason: Itching / Pruritus Last Admin: 10/17/18 22:26 Dose: 25 mg Furosemide (Lasix) 40 mg PO DAILY [facility] Last Admin: 10/20/18 10:01 Dose: 40 mg Gabapentin (Neurontin) 100 mg PO DAILY [facility] Last Admin: 10/20/18 10:03 Dose: 100 mg Guaifenesin/Dextromethorphan (Robitussin Dm) 10 ml PO Q6 PRN PRN Reason: Cough Last Admin: 09/24/18 00:58 Dose: 10 ml Heparin Sodium (Porcine) (Heparin) 5,000 units SC Q8 [facility]; Protocol Last Admin: 10/21/18 01:02 Dose: 5,000 units Piperacillin Sod/Tazobactam (Sod 3.375 gm/ Sodium Chloride) 100 mls @ 100 mls/hr IVPB Q8H [facility]; Protocol Last Admin: 10/21/18 05:42 Dose: 100 mls/hr Insulin Human Lispro (Humalog) 0 units SC QID [facility]; Protocol Last Admin: 10/20/18 22:04 Dose: Not Given Isosorbide Mononitrate (Imdur Er) 30 mg PO DAILY [facility] Last Admin: 10/20/18 10:02 Dose: 30 mg Lactic Acid (Lac-Hydrin 12% Lotion (225 G)) 1 applic TOP TID [facility] Last Admin: 10/20/18 17:59 Dose: Not Given Lactulose (Enulose) 20 gm PO DAILY PRN PRN Reason: Constipation Metoprolol Tartrate (Lopressor) 12.5 mg PO Q12 [facility] Last Admin: 10/20/18 20:25 Dose: Not Given Mirtazapine (Remeron) 7.5 mg PO HS [facility] Last Admin: 10/20/18 22:02 Dose: 7.5 mg Montelukast Sodium (Singulair) 10 mg PO HS [facility] Last Admin: 10/20/18 22:02 Dose: 10 mg Ondansetron HCl (Zofran Inj) 4 mg IVP Q6 PRN PRN Reason: Nausea/Vomiting Last Admin: 10/10/18 09:13 Dose: 4 mg Pantoprazole Sodium (Protonix Ec Tab) 40 mg PO DAILY@0600 [facility] Last Admin: 10/21/18 05:41 Dose: 40 mg Sodium Hypochlorite (Dakins Solution 0.125%) 20 appl TOP DAILY [facility] Last Admin: 10/19/18 09:49 Dose: Not Given Spironolactone (Aldactone) 25 mg PO DAILY [facility] Last Admin: 10/20/18 10:01 Dose: 25 mg - Labs Labs: 10/18/18 07:50 10/18/18 07:50 - Constitutional Appears: Well, Non-toxic, No Acute Distress - Head Exam Head Exam: ATRAUMATIC, NORMOCEPHALIC - Extremities Exam Additional comments: Right lower extremity exam: Vasc: DP/PT pulses non-palpable. CFT < 3 sec to all digits, TG warm to warm, +1 pitting edema noted to leg extending distally to digits. Mottled hyperpigmented tented skin to leg Ortho: Charcot foot deformity noted with rocker bottom foot. No pain on palpation to right heel wound. no pain upon calf compression Neuro: Gross sensation intact, protective sensation absent Derm: Circular ulceration measuring approximately 4 cm x 3.9cm noted to R heel with 100% granular wound base, much improved, minimal malodor, minimal sanguinous drainage, no purulence appreciated. No tunneling or tracking appreciated. No probe to bone. No evidence of cellulitis or superficial infection. Healed ulceration noted plantarmedial sub met 1 - Neurological Exam Neurological Exam: Alert, Awake, Oriented x3 - Psychiatric Exam Psychiatric exam: Normal Affect, Normal Mood Assessment and Plan - Assessment and Plan (Free Text) Assessment: 72 y/o female with plantar heel ulceration and lower extremity edema Plan: Patient seen and evaluated Discussed with attending, Dr. 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
[2018-10-21] MEDS: Insulin Lispro (humaLOG) 100 Units/ml Inj SC SCH ×4 (09:23→22:30)
--- NOTE | 2018-10-21 20:57 | CP.PCM.PN ---
Subjective - Date & Time of Evaluation Date of Evaluation: 10/21/18 Time of Evaluation: 14:40 - Subjective Subjective: Seen and examined at the bed side. No fever or chills. Objective - Vital Signs/Intake and Output Vital Signs (last 24 hours): Temp Pulse Resp BP Pulse Ox 98 F 66 20 103/61 99 10/21/18 17:30 10/21/18 17:30 10/21/18 17:30 10/21/18 17:30 10/21/18 17:30 - Medications Medications: Current Medications Acetaminophen (Tylenol 325mg Tab) 650 mg PO Q6 PRN PRN Reason: Pain, moderate (4-7) Last Admin: 10/16/18 09:18 Dose: 650 mg Aspirin (Ecotrin) 81 mg PO DAILY [facility] Last Admin: 10/21/18 09:24 Dose: 81 mg Atorvastatin Calcium (Lipitor) 80 mg PO DAILY@2100 [facility] Last Admin: 10/20/18 20:24 Dose: 80 mg Clopidogrel Bisulfate (Plavix) 75 mg PO DAILY [facility] Last Admin: 10/21/18 09:23 Dose: 75 mg Diphenhydramine HCl (Benadryl) 25 mg PO Q6 PRN PRN Reason: Itching / Pruritus Last Admin: 10/17/18 22:26 Dose: 25 mg Furosemide (Lasix) 40 mg PO DAILY [facility] Last Admin: 10/21/18 09:21 Dose: 40 mg Gabapentin (Neurontin) 100 mg PO DAILY [facility] Last Admin: 10/21/18 09:21 Dose: 100 mg Guaifenesin/Dextromethorphan (Robitussin Dm) 10 ml PO Q6 PRN PRN Reason: Cough Last Admin: 09/24/18 00:58 Dose: 10 ml Heparin Sodium (Porcine) (Heparin) 5,000 units SC Q8 [facility]; Protocol Last Admin: 10/21/18 17:37 Dose: 5,000 units Piperacillin Sod/Tazobactam (Sod 3.375 gm/ Sodium Chloride) 100 mls @ 100 mls/hr IVPB Q8H [facility]; Protocol Last Admin: 10/21/18 15:27 Dose: 100 mls/hr Insulin Human Lispro (Humalog) 0 units SC QID [facility]; Protocol Last Admin: 10/21/18 17:37 Dose: 3 unit Isosorbide Mononitrate (Imdur Er) 30 mg PO DAILY [facility] Last Admin: 10/21/18 09:21 Dose: 30 mg Lactic Acid (Lac-Hydrin 12% Lotion (225 G)) 1 applic TOP TID [facility] Last Admin: 10/21/18 17:35 Dose: 1 applic Lactulose (Enulose) 20 gm PO DAILY PRN PRN Reason: Constipation Metoprolol Tartrate (Lopressor) 12.5 mg PO Q12 [facility] Last Admin: 10/21/18 09:23 Dose: 12.5 mg Mirtazapine (Remeron) 7.5 mg PO HS [facility] Last Admin: 10/20/18 22:02 Dose: 7.5 mg Montelukast Sodium (Singulair) 10 mg PO HS [facility] Last Admin: 10/20/18 22:02 Dose: 10 mg Ondansetron HCl (Zofran Inj) 4 mg IVP Q6 PRN PRN Reason: Nausea/Vomiting Last Admin: 10/10/18 09:13 Dose: 4 mg Pantoprazole Sodium (Protonix Ec Tab) 40 mg PO DAILY@0600 [facility] Last Admin: 10/21/18 05:41 Dose: 40 mg Sodium Hypochlorite (Dakins Solution 0.125%) 20 appl TOP DAILY [facility] Last Admin: 10/21/18 09:24 Dose: 20 appl Spironolactone (Aldactone) 25 mg PO DAILY [facility] Last Admin: 10/21/18 09:22 Dose: 25 mg - Labs Labs: 10/18/18 07:50 10/18/18 07:50 Assessment and Plan (1) Acute osteomyelitis Status: Acute (2) PVD (peripheral vascular disease) Status: Acute (3) Type 1 diabetes mellitus with diabetic foot infection Status: Acute (4) Diabetic foot ulcer Status: Acute (5) DVT prophylaxis Status: Acute (6) Fall Status: Acute - Assessment and Plan (Free Text) Plan: Continue Current Care
[2018-10-22] MEDS: Pantoprazole 40 mg EC Tab PO SCH (06:27)
[2018-10-22] MEDS: Piperacillin/Tazobact 3.375 GM in Sodium Chloride 0.9% 100 ML IVPB SCH ×3 (06:27→22:02)
[2018-10-22] MEDS: Insulin Lispro (humaLOG) 100 Units/ml Inj SC SCH ×4 (08:28→22:35)
[2018-10-23] MEDS: Pantoprazole 40 mg EC Tab PO SCH (06:13)
[2018-10-23] MEDS: Piperacillin/Tazobact 3.375 GM in Sodium Chloride 0.9% 100 ML IVPB SCH ×3 (06:15→21:23)
[2018-10-23] MEDS: Insulin Lispro (humaLOG) 100 Units/ml Inj SC SCH ×4 (08:09→21:58)
--- NOTE | 2018-10-23 09:14 | CP.PCM.PN ---
Subjective - Date & Time of Evaluation Date of Evaluation: 10/22/18 Time of Evaluation: 18:10 - Subjective Subjective: Seen and examined at the bed side. No new complaint. Pending Medicaid. Objective - Vital Signs/Intake and Output Vital Signs (last 24 hours): Temp Pulse Resp BP Pulse Ox 98.1 F 58 L 20 114/64 98 10/23/18 08:46 10/23/18 08:46 10/23/18 08:46 10/22/18 23:36 10/23/18 08:46 - Medications Medications: Current Medications Acetaminophen (Tylenol 325mg Tab) 650 mg PO Q6 PRN PRN Reason: Pain, moderate (4-7) Last Admin: 10/23/18 02:52 Dose: 650 mg Aspirin (Ecotrin) 81 mg PO DAILY [facility] Last Admin: 10/22/18 08:26 Dose: 81 mg Atorvastatin Calcium (Lipitor) 80 mg PO DAILY@2100 [facility] Last Admin: 10/22/18 22:00 Dose: 80 mg Clopidogrel Bisulfate (Plavix) 75 mg PO DAILY [facility] Last Admin: 10/22/18 08:25 Dose: 75 mg Diphenhydramine HCl (Benadryl) 25 mg PO Q6 PRN PRN Reason: Itching / Pruritus Last Admin: 10/17/18 22:26 Dose: 25 mg Furosemide (Lasix) 40 mg PO DAILY [facility] Last Admin: 10/22/18 08:26 Dose: 40 mg Gabapentin (Neurontin) 100 mg PO DAILY [facility] Last Admin: 10/22/18 08:27 Dose: 100 mg Guaifenesin/Dextromethorphan (Robitussin Dm) 10 ml PO Q6 PRN PRN Reason: Cough Last Admin: 09/24/18 00:58 Dose: 10 ml Heparin Sodium (Porcine) (Heparin) 5,000 units SC Q8 [facility]; Protocol Last Admin: 10/22/18 17:04 Dose: Not Given Piperacillin Sod/Tazobactam (Sod 3.375 gm/ Sodium Chloride) 100 mls @ 100 mls/hr IVPB Q8H [facility]; Protocol Last Admin: 10/23/18 06:15 Dose: 100 mls/hr Insulin Human Lispro (Humalog) 0 units SC QID [facility]; Protocol Last Admin: 10/22/18 22:35 Dose: Not Given Isosorbide Mononitrate (Imdur Er) 30 mg PO DAILY [facility] Last Admin: 10/22/18 08:25 Dose: 30 mg Lactic Acid (Lac-Hydrin 12% Lotion (225 G)) 1 applic TOP TID [facility] Last Admin: 10/22/18 17:04 Dose: Not Given Lactulose (Enulose) 20 gm PO DAILY PRN PRN Reason: Constipation Metoprolol Tartrate (Lopressor) 12.5 mg PO Q12 [facility] Last Admin: 10/22/18 22:00 Dose: 12.5 mg Mirtazapine (Remeron) 7.5 mg PO HS [facility] Last Admin: 10/22/18 22:01 Dose: 7.5 mg Montelukast Sodium (Singulair) 10 mg PO HS [facility] Last Admin: 10/22/18 22:00 Dose: 10 mg Ondansetron HCl (Zofran Inj) 4 mg IVP Q6 PRN PRN Reason: Nausea/Vomiting Last Admin: 10/10/18 09:13 Dose: 4 mg Pantoprazole Sodium (Protonix Ec Tab) 40 mg PO DAILY@0600 [facility] Last Admin: 10/23/18 06:13 Dose: 40 mg Sodium Hypochlorite (Dakins Solution 0.125%) 20 appl TOP DAILY [facility] Last Admin: 10/22/18 08:28 Dose: 20 appl Spironolactone (Aldactone) 25 mg PO DAILY [facility] Last Admin: 10/22/18 08:25 Dose: 25 mg - Labs Labs: 10/18/18 07:50 10/18/18 07:50 Assessment and Plan (1) Acute osteomyelitis Status: Acute (2) PVD (peripheral vascular disease) Status: Acute (3) Type 1 diabetes mellitus with diabetic foot infection Status: Acute (4) Diabetic foot ulcer Status: Acute (5) DVT prophylaxis Status: Acute (6) Fall Status: Acute - Assessment and Plan (Free Text) Plan: Continue Current Care
--- NOTE | 2018-10-23 10:39 | CP.PCM.PN ---
Subjective - Date & Time of Evaluation Date of Evaluation: 10/23/18 Time of Evaluation: 10:37 - Subjective Subjective: Podiatry Progress Note - Dr. Smith 72 y/o female seen and evaluated at bedside this morning for right plantar heel ulceration. Patient resting comfortably, hemodynamically stable and NAD. Patient reports the pain to her leg has worsened since last evaluated. Admits to occasional tingling and sensitivity in the foot due to her neuropathy. Dressing to RLE clean/intact with moderate strikethrough present. Multipodus boots are in place. Denies F/C/N/V/CP/SOB Objective - Vital Signs/Intake and Output Vital Signs (last 24 hours): Temp Pulse Resp BP Pulse Ox 98.1 F 70 20 114/68 98 10/23/18 08:46 10/23/18 10:05 10/23/18 08:46 10/23/18 10:09 10/23/18 08:46 - Medications Medications: Current Medications Acetaminophen (Tylenol 325mg Tab) 650 mg PO Q6 PRN PRN Reason: Pain, moderate (4-7) Last Admin: 10/23/18 02:52 Dose: 650 mg Aspirin (Ecotrin) 81 mg PO DAILY [facility] Last Admin: 10/23/18 10:07 Dose: 81 mg Atorvastatin Calcium (Lipitor) 80 mg PO DAILY@2100 [facility] Last Admin: 10/22/18 22:00 Dose: 80 mg Clopidogrel Bisulfate (Plavix) 75 mg PO DAILY [facility] Last Admin: 10/23/18 10:07 Dose: 75 mg Diphenhydramine HCl (Benadryl) 25 mg PO Q6 PRN PRN Reason: Itching / Pruritus Last Admin: 10/17/18 22:26 Dose: 25 mg Furosemide (Lasix) 40 mg PO DAILY [facility] Last Admin: 10/23/18 10:09 Dose: 40 mg Gabapentin (Neurontin) 100 mg PO DAILY [facility] Last Admin: 10/23/18 10:06 Dose: 100 mg Guaifenesin/Dextromethorphan (Robitussin Dm) 10 ml PO Q6 PRN PRN Reason: Cough Last Admin: 09/24/18 00:58 Dose: 10 ml Heparin Sodium (Porcine) (Heparin) 5,000 units SC Q8 [facility]; Protocol Last Admin: 10/23/18 10:01 Dose: 5,000 units Piperacillin Sod/Tazobactam (Sod 3.375 gm/ Sodium Chloride) 100 mls @ 100 m ls/hr IVPB Q8H [facility]; Protocol Last Admin: 10/23/18 06:15 Dose: 100 mls/hr Insulin Human Lispro (Humalog) 0 units SC QID [facility]; Protocol Last Admin: 10/23/18 08:09 Dose: Not Given Isosorbide Mononitrate (Imdur Er) 30 mg PO DAILY [facility] Last Admin: 10/23/18 10:07 Dose: 30 mg Lactic Acid (Lac-Hydrin 12% Lotion (225 G)) 1 applic TOP TID [facility] Last Admin: 10/23/18 10:09 Dose: Not Given Lactulose (Enulose) 20 gm PO DAILY PRN PRN Reason: Constipation Metoprolol Tartrate (Lopressor) 12.5 mg PO Q12 [facility] Last Admin: 10/23/18 10:05 Dose: 12.5 mg Mirtazapine (Remeron) 7.5 mg PO HS [facility] Last Admin: 10/22/18 22:01 Dose: 7.5 mg Montelukast Sodium (Singulair) 10 mg PO HS [facility] Last Admin: 10/22/18 22:00 Dose: 10 mg Ondansetron HCl (Zofran Inj) 4 mg IVP Q6 PRN PRN Reason: Nausea/Vomiting Last Admin: 10/10/18 09:13 Dose: 4 mg Pantoprazole Sodium (Protonix Ec Tab) 40 mg PO DAILY@0600 [facility] Last Admin: 10/23/18 06:13 Dose: 40 mg Sodium Hypochlorite (Dakins Solution 0.125%) 20 appl TOP DAILY [facility] Last Admin: 10/23/18 10:08 Dose: 20 appl Spironolactone (Aldactone) 25 mg PO DAILY [facility] Last Admin: 10/23/18 10:07 Dose: 25 mg - Labs Labs: 10/18/18 07:50 10/18/18 07:50 - Constitutional Appears: Well, Non-toxic, No Acute Distress - Head Exam Head Exam: ATRAUMATIC, NORMOCEPHALIC - Extremities Exam Additional comments: Right lower extremity exam: Vasc: DP/PT pulses non-palpable. CFT < 3 sec to all digits, TG warm to warm, +1 pitting edema noted to leg extending distally to digits. Mottled hyperpigmented tented skin to leg Ortho: Charcot foot deformity noted with rocker bottom foot. No pain on palpation to right heel wound. no pain upon calf compression Neuro: Gross sensation intact, protective sensation absent Derm: Circular ulceration measuring approximately 4 cm x 3.9cm noted to R heel with 100% granular wound base, much improved, minimal malodor, minimal sanguinous drainage, no purulence appreciated. No tunneling or tracking appreciated. No probe to bone. No evidence of cellulitis or superficial infection. Healed ulceration noted plantarmedial sub met 1 - Neurological Exam Neurological Exam: Alert, Awake, Oriented x3 - Psychiatric Exam Psychiatric exam: Normal Affect, Normal Mood Assessment and Plan - Assessment and Plan (Free Text) Assessment: 72 y/o female with plantar heel ulceration and lower extremity edema Plan: Patient seen and evaluated Discussed with attending, Dr. 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
[2018-10-24] MEDS: Piperacillin/Tazobact 3.375 GM in Sodium Chloride 0.9% 100 ML IVPB SCH ×3 (06:15→21:25)
[2018-10-24] MEDS: Pantoprazole 40 mg EC Tab PO SCH (06:15)
[2018-10-24] MEDS: Insulin Lispro (humaLOG) 100 Units/ml Inj SC SCH ×4 (10:18→22:36)
--- NOTE | 2018-10-24 23:05 | CP.PCM.PN ---
Subjective - Date & Time of Evaluation Date of Evaluation: 10/24/18 Time of Evaluation: 21:35 Objective - Vital Signs/Intake and Output Vital Signs (last 24 hours): Temp Pulse Resp BP Pulse Ox 98.7 F 70 18 102/51 L 98 10/24/18 17:00 10/24/18 21:18 10/24/18 17:00 10/24/18 21:18 10/24/18 17:00 - Medications Medications: Current Medications Acetaminophen (Tylenol 325mg Tab) 650 mg PO Q6 PRN PRN Reason: Pain, moderate (4-7) Last Admin: 10/24/18 01:08 Dose: 650 mg Aspirin (Ecotrin) 81 mg PO DAILY [facility] Last Admin: 10/24/18 09:36 Dose: 81 mg Atorvastatin Calcium (Lipitor) 80 mg PO DAILY@2100 [facility] Last Admin: 10/24/18 21:19 Dose: 80 mg Clopidogrel Bisulfate (Plavix) 75 mg PO DAILY [facility] Last Admin: 10/24/18 09:35 Dose: 75 mg Diphenhydramine HCl (Benadryl) 25 mg PO Q6 PRN PRN Reason: Itching / Pruritus Last Admin: 10/17/18 22:26 Dose: 25 mg Furosemide (Lasix) 40 mg PO DAILY [facility] Last Admin: 10/24/18 11:13 Dose: Not Given Gabapentin (Neurontin) 100 mg PO DAILY [facility] Last Admin: 10/24/18 09:34 Dose: 100 mg Guaifenesin/Dextromethorphan (Robitussin Dm) 10 ml PO Q6 PRN PRN Reason: Cough Last Admin: 09/24/18 00:58 Dose: 10 ml Heparin Sodium (Porcine) (Heparin) 5,000 units SC Q8 [facility]; Protocol Last Admin: 10/24/18 17:05 Dose: 5,000 units Piperacillin Sod/Tazobactam (Sod 3.375 gm/ Sodium Chloride) 100 mls @ 100 mls/hr IVPB Q8H [facility]; Protocol Last Admin: 10/24/18 21:25 Dose: 100 mls/hr Insulin Human Lispro (Humalog) 0 units SC QID [facility]; Protocol Last Admin: 10/24/18 22:36 Dose: Not Given Isosorbide Mononitrate (Imdur Er) 30 mg PO DAILY [facility] Last Admin: 10/24/18 09:36 Dose: 30 mg Lactic Acid (Lac-Hydrin 12% Lotion (225 G)) 1 applic TOP TID [facility] Last Admin: 10/24/18 17:05 Dose: Not Given Lactulose (Enulose) 20 gm PO DAILY PRN PRN Reason: Constipation Metoprolol Tartrate (Lopressor) 12.5 mg PO Q12 [facility] Last Admin: 10/24/18 21:18 Dose: 12.5 mg Mirtazapine (Remeron) 7.5 mg PO HS [facility] Last Admin: 10/24/18 21:19 Dose: 7.5 mg Montelukast Sodium (Singulair) 10 mg PO HS [facility] Last Admin: 10/24/18 21:20 Dose: 10 mg Ondansetron HCl (Zofran Inj) 4 mg IVP Q6 PRN PRN Reason: Nausea/Vomiting Last Admin: 10/10/18 09:13 Dose: 4 mg Pantoprazole Sodium (Protonix Ec Tab) 40 mg PO DAILY@0600 [facility] Last Admin: 10/24/18 06:15 Dose: 40 mg Sodium Hypochlorite (Dakins Solution 0.125%) 20 appl TOP DAILY [facility] Last Admin: 10/24/18 10:24 Dose: Not Given Spironolactone (Aldactone) 25 mg PO DAILY [facility] Last Admin: 10/24/18 11:13 Dose: Not Given - Labs Labs: 10/18/18 07:50 10/18/18 07:50 Assessment and Plan (1) Acute osteomyelitis Status: Acute (2) PVD (peripheral vascular disease) Status: Acute (3) Type 1 diabetes mellitus with diabetic foot infection Status: Acute (4) Diabetic foot ulcer Status: Acute (5) DVT prophylaxis Status: Acute (6) Fall Status: Acute
--- NOTE | 2018-10-24 23:05 | CP.PCM.PN ---
Subjective - Date & Time of Evaluation Date of Evaluation: 10/23/18 Time of Evaluation: 21:35 Objective - Vital Signs/Intake and Output Vital Signs (last 24 hours): Temp Pulse Resp BP Pulse Ox 98.7 F 70 18 102/51 L 98 10/24/18 17:00 10/24/18 21:18 10/24/18 17:00 10/24/18 21:18 10/24/18 17:00 - Medications Medications: Current Medications Acetaminophen (Tylenol 325mg Tab) 650 mg PO Q6 PRN PRN Reason: Pain, moderate (4-7) Last Admin: 10/24/18 01:08 Dose: 650 mg Aspirin (Ecotrin) 81 mg PO DAILY [facility] Last Admin: 10/24/18 09:36 Dose: 81 mg Atorvastatin Calcium (Lipitor) 80 mg PO DAILY@2100 [facility] Last Admin: 10/24/18 21:19 Dose: 80 mg Clopidogrel Bisulfate (Plavix) 75 mg PO DAILY [facility] Last Admin: 10/24/18 09:35 Dose: 75 mg Diphenhydramine HCl (Benadryl) 25 mg PO Q6 PRN PRN Reason: Itching / Pruritus Last Admin: 10/17/18 22:26 Dose: 25 mg Furosemide (Lasix) 40 mg PO DAILY [facility] Last Admin: 10/24/18 11:13 Dose: Not Given Gabapentin (Neurontin) 100 mg PO DAILY [facility] Last Admin: 10/24/18 09:34 Dose: 100 mg Guaifenesin/Dextromethorphan (Robitussin Dm) 10 ml PO Q6 PRN PRN Reason: Cough Last Admin: 09/24/18 00:58 Dose: 10 ml Heparin Sodium (Porcine) (Heparin) 5,000 units SC Q8 [facility]; Protocol Last Admin: 10/24/18 17:05 Dose: 5,000 units Piperacillin Sod/Tazobactam (Sod 3.375 gm/ Sodium Chloride) 100 mls @ 100 mls/hr IVPB Q8H [facility]; Protocol Last Admin: 10/24/18 21:25 Dose: 100 mls/hr Insulin Human Lispro (Humalog) 0 units SC QID [facility]; Protocol Last Admin: 10/24/18 22:36 Dose: Not Given Isosorbide Mononitrate (Imdur Er) 30 mg PO DAILY [facility] Last Admin: 10/24/18 09:36 Dose: 30 mg Lactic Acid (Lac-Hydrin 12% Lotion (225 G)) 1 applic TOP TID [facility] Last Admin: 10/24/18 17:05 Dose: Not Given Lactulose (Enulose) 20 gm PO DAILY PRN PRN Reason: Constipation Metoprolol Tartrate (Lopressor) 12.5 mg PO Q12 [facility] Last Admin: 10/24/18 21:18 Dose: 12.5 mg Mirtazapine (Remeron) 7.5 mg PO HS [facility] Last Admin: 10/24/18 21:19 Dose: 7.5 mg Montelukast Sodium (Singulair) 10 mg PO HS [facility] Last Admin: 10/24/18 21:20 Dose: 10 mg Ondansetron HCl (Zofran Inj) 4 mg IVP Q6 PRN PRN Reason: Nausea/Vomiting Last Admin: 10/10/18 09:13 Dose: 4 mg Pantoprazole Sodium (Protonix Ec Tab) 40 mg PO DAILY@0600 [facility] Last Admin: 10/24/18 06:15 Dose: 40 mg Sodium Hypochlorite (Dakins Solution 0.125%) 20 appl TOP DAILY [facility] Last Admin: 10/24/18 10:24 Dose: Not Given Spironolactone (Aldactone) 25 mg PO DAILY [facility] Last Admin: 10/24/18 11:13 Dose: Not Given - Labs Labs: 10/18/18 07:50 10/18/18 07:50 Assessment and Plan (1) Acute osteomyelitis Status: Acute (2) PVD (peripheral vascular disease) Status: Acute (3) Type 1 diabetes mellitus with diabetic foot infection Status: Acute (4) Diabetic foot ulcer Status: Acute (5) DVT prophylaxis Status: Acute (6) Fall Status: Acute
[2018-10-25] MEDS: Piperacillin/Tazobact 3.375 GM in Sodium Chloride 0.9% 100 ML IVPB SCH ×3 (06:11→21:31)
[2018-10-25] MEDS: Pantoprazole 40 mg EC Tab PO SCH (06:12)
[2018-10-25] MEDS: Insulin Lispro (humaLOG) 100 Units/ml Inj SC SCH ×4 (08:28→21:40)
--- NOTE | 2018-10-25 13:45 | CP.PCM.PN ---
Subjective - Date & Time of Evaluation Date of Evaluation: 10/25/18 Time of Evaluation: 09:00 - Subjective Subjective: no new cultures IV rx in progress Objective - Vital Signs/Intake and Output Vital Signs (last 24 hours): Temp Pulse Resp BP Pulse Ox 98 F 105 H 20 105/61 95 10/25/18 08:46 10/25/18 08:46 10/25/18 08:46 10/25/18 08:46 10/25/18 08:46 - Medications Medications: Current Medications Acetaminophen (Tylenol 325mg Tab) 650 mg PO Q6 PRN PRN Reason: Pain, moderate (4-7) Last Admin: 10/24/18 01:08 Dose: 650 mg Aspirin (Ecotrin) 81 mg PO DAILY [facility] Last Admin: 10/25/18 08:24 Dose: 81 mg Atorvastatin Calcium (Lipitor) 80 mg PO DAILY@2100 [facility] Last Admin: 10/24/18 21:19 Dose: 80 mg Clopidogrel Bisulfate (Plavix) 75 mg PO DAILY [facility] Last Admin: 10/25/18 08:27 Dose: 75 mg Diphenhydramine HCl (Benadryl) 25 mg PO Q6 PRN PRN Reason: Itching / Pruritus Last Admin: 10/17/18 22:26 Dose: 25 mg Furosemide (Lasix) 40 mg PO DAILY [facility] Last Admin: 10/25/18 08:26 Dose: 40 mg Gabapentin (Neurontin) 100 mg PO DAILY [facility] Last Admin: 10/25/18 08:27 Dose: 100 mg Guaifenesin/Dextromethorphan (Robitussin Dm) 10 ml PO Q6 PRN PRN Reason: Cough Last Admin: 09/24/18 00:58 Dose: 10 ml Heparin Sodium (Porcine) (Heparin) 5,000 units SC Q8 [facility]; Protocol Last Admin: 10/25/18 08:22 Dose: 5,000 units Piperacillin Sod/Tazobactam (Sod 3.375 gm/ Sodium Chloride) 100 mls @ 100 mls/hr IVPB Q8H [facility]; Protocol Last Admin: 10/25/18 13:28 Dose: 100 mls/hr Insulin Human Lispro (Humalog) 0 units SC QID [facility]; Protocol Last Admin: 10/25/18 08:28 Dose: Not Given Isosorbide Mononitrate (Imdur Er) 30 mg PO DAILY [facility] Last Admin: 10/25/18 08:26 Dose: 30 mg Lactic Acid (Lac-Hydrin 12% Lotion (225 G)) 1 applic TOP TID [facility] Last Admin: 10/25/18 12:30 Dose: Not Given Lactulose (Enulose) 20 gm PO DAILY PRN PRN Reason: Constipation Metoprolol Tartrate (Lopressor) 12.5 mg PO Q12 [facility] Last Admin: 10/25/18 08:26 Dose: 12.5 mg Mirtazapine (Remeron) 7.5 mg PO [facility] Last Admin: 10/24/18 21:19 Dose: 7.5 mg Montelukast Sodium (Singulair) 10 mg PO HS [facility] Last Admin: 10/24/18 21:20 Dose: 10 mg Ondansetron HCl (Zofran Inj) 4 mg IVP Q6 PRN PRN Reason: Nausea/Vomiting Last Admin: 10/10/18 09:13 Dose: 4 mg Pantoprazole Sodium (Protonix Ec Tab) 40 mg PO DAILY@0600 [facility] Last Admin: 10/25/18 06:12 Dose: 40 mg Sodium Hypochlorite (Dakins Solution 0.125%) 20 appl TOP DAILY [facility] Last Admin: 10/24/18 10:24 Dose: Not Given Spironolactone (Aldactone) 25 mg PO DAILY [facility] Last Admin: 10/25/18 08:24 Dose: 25 mg - Labs Labs: 10/18/18 07:50 10/18/18 07:50 - Constitutional Appears: Non-toxic, Chronically Ill - Head Exam Head Exam: NORMOCEPHALIC - Eye Exam Eye Exam: absent: Scleral icterus - ENT Exam ENT Exam: Mucous Membranes Dry - Neck Exam Neck Exam: absent: Lymphadenopathy - Respiratory Exam Respiratory Exam: Decreased Breath Sounds - Cardiovascular Exam Cardiovascular Exam: REGULAR RHYTHM - GI/Abdominal Exam GI & Abdominal Exam: Distended, Soft - Rectal Exam Rectal Exam: Deferred - Exam Exam: NORMAL INSPECTION Assessment and Plan (1) Diabetic foot ulcer Status: Acute (2) Type 1 diabetes mellitus with diabetic foot infection Status: Acute - Assessment and Plan (Free Text) Assessment: renew iv rx cont wound care
[2018-10-26] MEDS: Pantoprazole 40 mg EC Tab PO SCH (05:51)
[2018-10-26] MEDS: Piperacillin/Tazobact 3.375 GM in Sodium Chloride 0.9% 100 ML IVPB SCH ×3 (05:51→21:15)
[2018-10-26] MEDS: Insulin Lispro (humaLOG) 100 Units/ml Inj SC SCH ×4 (08:28→22:00)
--- NOTE | 2018-10-26 08:45 | CP.PCM.PN ---
Subjective - Date & Time of Evaluation Date of Evaluation: 10/26/18 Time of Evaluation: 08:38 - Subjective Subjective: Podiatry Progress Note - Dr. Smith 72 y/o female seen and evaluated at bedside this morning for right plantar heel ulceration. Patient resting comfortably tata bed and NAD.Patient states that she doesn't have pain in her foot. Admits to occasional tingling and sensitivity in the foot due to her neuropathy. Dressing to RLE clean/intact with No strikethrough. Multipodus boots are in place. She denies any overnight F/C/N/V/CP/SOB. She denies any other pedal complaint at this time. Objective - Vital Signs/Intake and Output Vital Signs (last 24 hours): Temp Pulse Resp BP Pulse Ox 97.8 F 69 20 100/70 91 L 10/26/18 08:12 10/26/18 08:12 10/26/18 08:12 10/26/18 08:27 10/26/18 08:12 - Medications Medications: Current Medications Acetaminophen (Tylenol 325mg Tab) 650 mg PO Q6 PRN PRN Reason: Pain, moderate (4-7) Last Admin: 10/24/18 01:08 Dose: 650 mg Aspirin (Ecotrin) 81 mg PO DAILY [facility] Last Admin: 10/26/18 08:29 Dose: 81 mg Atorvastatin Calcium (Lipitor) 80 mg PO DAILY@2100 [facility] Last Admin: 10/25/18 21:30 Dose: 80 mg Clopidogrel Bisulfate (Plavix) 75 mg PO DAILY [facility] Last Admin: 10/26/18 08:28 Dose: 75 mg Diphenhydramine HCl (Benadryl) 25 mg PO Q6 PRN PRN Reason: Itching / Pruritus Last Admin: 10/17/18 22:26 Dose: 25 mg Furosemide (Lasix) 40 mg PO DAILY [facility] Last Admin: 10/26/18 08:27 Dose: 40 mg Gabapentin (Neurontin) 100 mg PO DAILY [facility] Last Admin: 10/26/18 08:25 Dose: 100 mg Guaifenesin/Dextromethorphan (Robitussin Dm) 10 ml PO Q6 PRN PRN Reason: Cough Last Admin: 09/24/18 00:58 Dose: 10 ml Heparin Sodium (Porcine) (Heparin) 5,000 units SC Q8 [facility]; Protocol Last Admin: 10/26/18 08:22 Dose: 5,000 units Piperacillin Sod/Tazobactam (Sod 3.375 gm/ Sodium Chloride) 100 mls @ 100 mls/hr IVPB Q8H [facility]; Protocol Last Admin: 10/26/18 05:51 Dose: 100 mls/hr Insulin Human Lispro (Humalog) 0 units SC QID [facility]; Protocol Last Admin: 10/26/18 08:28 Dose: 1 unit Isosorbide Mononitrate (Imdur Er) 30 mg PO DAILY [facility] Last Admin: 10/26/18 08:28 Dose: 30 mg Lactic Acid (Lac-Hydrin 12% Lotion (225 G)) 1 applic TOP TID [facility] Last Admin: 10/26/18 08:27 Dose: Not Given Lactulose (Enulose) 20 gm PO DAILY PRN PRN Reason: Constipation Metoprolol Tartrate (Lopressor) 12.5 mg PO Q12 [facility] Last Admin: 10/26/18 08:26 Dose: 12.5 mg Mirtazapine (Remeron) 7.5 mg PO HS [facility] Last Admin: 10/25/18 21:30 Dose: 7.5 mg Montelukast Sodium (Singulair) 10 mg PO HS [facility] Last Admin: 10/25/18 21:30 Dose: 10 mg Ondansetron HCl (Zofran Inj) 4 mg IVP Q6 PRN PRN Reason: Nausea/Vomiting Last Admin: 10/10/18 09:13 Dose: 4 mg Pantoprazole Sodium (Protonix Ec Tab) 40 mg PO DAILY@0600 [facility] Last Admin: 10/26/18 05:51 Dose: 40 mg Sodium Hypochlorite (Dakins Solution 0.125%) 20 appl TOP DAILY [facility] Last Admin: 10/26/18 08:27 Dose: 20 appl Spironolactone (Aldactone) 25 mg PO DAILY [facility] Last Admin: 10/26/18 08:25 Dose: 25 mg - Labs Labs: 10/18/18 07:50 10/18/18 07:50 - Constitutional Appears: Well, Non-toxic, No Acute Distress - Head Exam Head Exam: ATRAUMATIC, NORMOCEPHALIC - Extremities Exam Additional comments: Right lower extremity exam: Vasc: DP/PT pulses non-palpable. Cap refill < 3 sec to all digits, Temp gradient warm to warm, +1 pitting edema noted to leg extending distally to digits. Neuro: Gross sensation intact, protective sensation absent Derm: Circular ulceration measuring approximately 3.6 cm x 3.2cmX0.2cm noted to R heel with 100% granular wound base, No malodor, minimal serous drainage, no purulence appreciated. No tunneling or tracking appreciated. No probe to bone. No evidence of cellulitis or superficial infection. Healed ulceration noted plantar-medial sub met 1. Mottled hyper-pigmented, dry, desquamate, tented skin to leg. MSK: Charcot foot deformity noted with rocker bottom foot. No pain on palpation to right heel wound. - Neurological Exam Neurological Exam: Alert, Awake, Oriented x3 - Psychiatric Exam Psychiatric exam: Normal Affect, Normal Mood Assessment and Plan - Assessment and Plan (Free Text) Assessment: 72 y/o female with Right plantar heel ulceration and chronic lower extremity stasis edema Plan: Patient seen and evaluated Discussed with attending, Dr. 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 Continue abx per ID: PICC placed; continue Zosyn to complete 6 weeks for acute OM Continue local wound care. Dressing change of the right foot using Dakin's cleanse, DSD to R foot heel wound Patient advised to apply Ammonium lactate to her B/L LE scaling Multipodus boots to be worn at all times in bed Podiatry will continue to follow up the patient while in house
[2018-10-27] MEDS: Piperacillin/Tazobact 3.375 GM in Sodium Chloride 0.9% 100 ML IVPB SCH ×3 (05:41→22:12)
[2018-10-27] MEDS: Pantoprazole 40 mg EC Tab PO SCH (05:41)
[2018-10-27] MEDS: Insulin Lispro (humaLOG) 100 Units/ml Inj SC SCH ×4 (08:59→22:00)
[2018-10-28] MEDS: Pantoprazole 40 mg EC Tab PO SCH (05:47)
[2018-10-28] MEDS: Piperacillin/Tazobact 3.375 GM in Sodium Chloride 0.9% 100 ML IVPB SCH ×3 (05:47→21:16)
--- NOTE | 2018-10-28 07:46 | CP.PCM.PN ---
Subjective - Date & Time of Evaluation Date of Evaluation: 10/25/18 Objective - Vital Signs/Intake and Output Vital Signs (last 24 hours): Temp Pulse Resp BP Pulse Ox 98 F 61 18 124/70 100 10/28/18 07:38 10/28/18 07:38 10/28/18 07:38 10/28/18 07:38 10/28/18 07:38 - Medications Medications: Current Medications Acetaminophen (Tylenol 325mg Tab) 650 mg PO Q6 PRN PRN Reason: Pain, moderate (4-7) Last Admin: 10/24/18 01:08 Dose: 650 mg Aspirin (Ecotrin) 81 mg PO DAILY [facility] Last Admin: 10/27/18 08:56 Dose: 81 mg Atorvastatin Calcium (Lipitor) 80 mg PO DAILY@2100 [facility] Last Admin: 10/27/18 21:30 Dose: 80 mg Clopidogrel Bisulfate (Plavix) 75 mg PO DAILY [facility] Last Admin: 10/27/18 08:58 Dose: 75 mg Diphenhydramine HCl (Benadryl) 25 mg PO Q6 PRN PRN Reason: Itching / Pruritus Last Admin: 10/17/18 22:26 Dose: 25 mg Furosemide (Lasix) 40 mg PO DAILY [facility] Last Admin: 10/27/18 08:56 Dose: 40 mg Gabapentin (Neurontin) 100 mg PO DAILY [facility] Last Admin: 10/27/18 08:56 Dose: 100 mg Guaifenesin/Dextromethorphan (Robitussin Dm) 10 ml PO Q6 PRN PRN Reason: Cough Last Admin: 09/24/18 00:58 Dose: 10 ml Heparin Sodium (Porcine) (Heparin) 5,000 units SC Q8 [facility]; Protocol Last Admin: 10/28/18 00:45 Dose: 5,000 units Piperacillin Sod/Tazobactam (Sod 3.375 gm/ Sodium Chloride) 100 mls @ 100 mls/hr IVPB Q8H [facility]; Protocol Last Admin: 10/28/18 05:47 Dose: 100 mls/hr Insulin Human Lispro (Humalog) 0 units SC QID [facility]; Protocol Last Admin: 10/27/18 22:00 Dose: Not Given Isosorbide Mononitrate (Imdur Er) 30 mg PO DAILY [facility] Last Admin: 10/27/18 08:57 Dose: 30 mg Lactic Acid (Lac-Hydrin 12% Lotion (225 G)) 1 applic TOP TID [facility] Last Admin: 10/27/18 17:13 Dose: Not Given Lactulose (Enulose) 20 gm PO DAILY PRN PRN Reason: Constipation Metoprolol Tartrate (Lopressor) 12.5 mg PO Q12 [facility] Last Admin: 10/27/18 21:30 Dose: 12.5 mg Mirtazapine (Remeron) 7.5 mg PO HS [facility] Last Admin: 10/27/18 22:13 Dose: 7.5 mg Montelukast Sodium (Singulair) 10 mg PO HS [facility] Last Admin: 10/27/18 22:13 Dose: 10 mg Ondansetron HCl (Zofran Inj) 4 mg IVP Q6 PRN PRN Reason: Nausea/Vomiting Last Admin: 10/10/18 09:13 Dose: 4 mg Pantoprazole Sodium (Protonix Ec Tab) 40 mg PO DAILY@0600 [facility] Last Admin: 10/28/18 05:47 Dose: 40 mg Sodium Hypochlorite (Dakins Solution 0.125%) 20 appl TOP DAILY [facility] Last Admin: 10/27/18 12:47 Dose: Not Given Spironolactone (Aldactone) 25 mg PO DAILY [facility] Last Admin: 10/27/18 08:59 Dose: 25 mg - Labs Labs: 10/18/18 07:50 10/18/18 07:50 Assessment and Plan (1) Acute osteomyelitis Status: Acute (2) PVD (peripheral vascular disease) Status: Acute (3) Type 1 diabetes mellitus with diabetic foot infection Status: Acute (4) Diabetic foot ulcer Status: Acute (5) DVT prophylaxis Status: Acute (6) Fall Status: Acute
--- NOTE | 2018-10-28 07:47 | CP.PCM.PN ---
Subjective - Date & Time of Evaluation Date of Evaluation: 10/26/18 Objective - Vital Signs/Intake and Output Vital Signs (last 24 hours): Temp Pulse Resp BP Pulse Ox 98 F 61 18 124/70 100 10/28/18 07:38 10/28/18 07:38 10/28/18 07:38 10/28/18 07:38 10/28/18 07:38 - Medications Medications: Current Medications Acetaminophen (Tylenol 325mg Tab) 650 mg PO Q6 PRN PRN Reason: Pain, moderate (4-7) Last Admin: 10/24/18 01:08 Dose: 650 mg Aspirin (Ecotrin) 81 mg PO DAILY [facility] Last Admin: 10/27/18 08:56 Dose: 81 mg Atorvastatin Calcium (Lipitor) 80 mg PO DAILY@2100 [facility] Last Admin: 10/27/18 21:30 Dose: 80 mg Clopidogrel Bisulfate (Plavix) 75 mg PO DAILY [facility] Last Admin: 10/27/18 08:58 Dose: 75 mg Diphenhydramine HCl (Benadryl) 25 mg PO Q6 PRN PRN Reason: Itching / Pruritus Last Admin: 10/17/18 22:26 Dose: 25 mg Furosemide (Lasix) 40 mg PO DAILY [facility] Last Admin: 10/27/18 08:56 Dose: 40 mg Gabapentin (Neurontin) 100 mg PO DAILY [facility] Last Admin: 10/27/18 08:56 Dose: 100 mg Guaifenesin/Dextromethorphan (Robitussin Dm) 10 ml PO Q6 PRN PRN Reason: Cough Last Admin: 09/24/18 00:58 Dose: 10 ml Heparin Sodium (Porcine) (Heparin) 5,000 units SC Q8 [facility]; Protocol Last Admin: 10/28/18 00:45 Dose: 5,000 units Piperacillin Sod/Tazobactam (Sod 3.375 gm/ Sodium Chloride) 100 mls @ 100 mls/hr IVPB Q8H [facility]; Protocol Last Admin: 10/28/18 05:47 Dose: 100 mls/hr Insulin Human Lispro (Humalog) 0 units SC QID [facility]; Protocol Last Admin: 10/27/18 22:00 Dose: Not Given Isosorbide Mononitrate (Imdur Er) 30 mg PO DAILY [facility] Last Admin: 10/27/18 08:57 Dose: 30 mg Lactic Acid (Lac-Hydrin 12% Lotion (225 G)) 1 applic TOP TID [facility] Last Admin: 10/27/18 17:13 Dose: Not Given Lactulose (Enulose) 20 gm PO DAILY PRN PRN Reason: Constipation Metoprolol Tartrate (Lopressor) 12.5 mg PO Q12 [facility] Last Admin: 10/27/18 21:30 Dose: 12.5 mg Mirtazapine (Remeron) 7.5 mg PO HS [facility] Last Admin: 10/27/18 22:13 Dose: 7.5 mg Montelukast Sodium (Singulair) 10 mg PO HS [facility] Last Admin: 10/27/18 22:13 Dose: 10 mg Ondansetron HCl (Zofran Inj) 4 mg IVP Q6 PRN PRN Reason: Nausea/Vomiting Last Admin: 10/10/18 09:13 Dose: 4 mg Pantoprazole Sodium (Protonix Ec Tab) 40 mg PO DAILY@0600 [facility] Last Admin: 10/28/18 05:47 Dose: 40 mg Sodium Hypochlorite (Dakins Solution 0.125%) 20 appl TOP DAILY [facility] Last Admin: 10/27/18 12:47 Dose: Not Given Spironolactone (Aldactone) 25 mg PO DAILY [facility] Last Admin: 10/27/18 08:59 Dose: 25 mg - Labs Labs: 10/18/18 07:50 10/18/18 07:50 Assessment and Plan (1) Acute osteomyelitis Status: Acute (2) PVD (peripheral vascular disease) Status: Acute (3) Type 1 diabetes mellitus with diabetic foot infection Status: Acute (4) Diabetic foot ulcer Status: Acute (5) DVT prophylaxis Status: Acute (6) Fall Status: Acute
--- NOTE | 2018-10-28 07:49 | CP.PCM.PN ---
Subjective - Date & Time of Evaluation Date of Evaluation: 10/27/18 Time of Evaluation: 07:15 - Subjective Subjective: Seen and examined at the bed side. No new complaint. Objective - Vital Signs/Intake and Output Vital Signs (last 24 hours): Temp Pulse Resp BP Pulse Ox 98 F 61 18 124/70 100 10/28/18 07:38 10/28/18 07:38 10/28/18 07:38 10/28/18 07:38 10/28/18 07:38 - Medications Medications: Current Medications Acetaminophen (Tylenol 325mg Tab) 650 mg PO Q6 PRN PRN Reason: Pain, moderate (4-7) Last Admin: 10/24/18 01:08 Dose: 650 mg Aspirin (Ecotrin) 81 mg PO DAILY [facility] Last Admin: 10/27/18 08:56 Dose: 81 mg Atorvastatin Calcium (Lipitor) 80 mg PO DAILY@2100 [facility] Last Admin: 10/27/18 21:30 Dose: 80 mg Clopidogrel Bisulfate (Plavix) 75 mg PO DAILY [facility] Last Admin: 10/27/18 08:58 Dose: 75 mg Diphenhydramine HCl (Benadryl) 25 mg PO Q6 PRN PRN Reason: Itching / Pruritus Last Admin: 10/17/18 22:26 Dose: 25 mg Furosemide (Lasix) 40 mg PO DAILY [facility] Last Admin: 10/27/18 08:56 Dose: 40 mg Gabapentin (Neurontin) 100 mg PO DAILY [facility] Last Admin: 10/27/18 08:56 Dose: 100 mg Guaifenesin/Dextromethorphan (Robitussin Dm) 10 ml PO Q6 PRN PRN Reason: Cough Last Admin: 09/24/18 00:58 Dose: 10 ml Heparin Sodium (Porcine) (Heparin) 5,000 units SC Q8 [facility]; Protocol Last Admin: 10/28/18 00:45 Dose: 5,000 units Piperacillin Sod/Tazobactam (Sod 3.375 gm/ Sodium Chloride) 100 mls @ 100 mls/hr IVPB Q8H [facility]; Protocol Last Admin: 10/28/18 05:47 Dose: 100 mls/hr Insulin Human Lispro (Humalog) 0 units SC QID [facility]; Protocol Last Admin: 10/27/18 22:00 Dose: Not Given Isosorbide Mononitrate (Imdur Er) 30 mg PO DAILY [facility] Last Admin: 10/27/18 08:57 Dose: 30 mg Lactic Acid (Lac-Hydrin 12% Lotion (225 G)) 1 applic TOP TID [facility] Last Admin: 10/27/18 17:13 Dose: Not Given Lactulose (Enulose) 20 gm PO DAILY PRN PRN Reason: Constipation Metoprolol Tartrate (Lopressor) 12.5 mg PO Q12 [facility] Last Admin: 10/27/18 21:30 Dose: 12.5 mg Mirtazapine (Remeron) 7.5 mg PO HS [facility] Last Admin: 10/27/18 22:13 Dose: 7.5 mg Montelukast Sodium (Singulair) 10 mg PO HS [facility] Last Admin: 10/27/18 22:13 Dose: 10 mg Ondansetron HCl (Zofran Inj) 4 mg IVP Q6 PRN PRN Reason: Nausea/Vomiting Last Admin: 10/10/18 09:13 Dose: 4 mg Pantoprazole Sodium (Protonix Ec Tab) 40 mg PO DAILY@0600 [facility] Last Admin: 10/28/18 05:47 Dose: 40 mg Sodium Hypochlorite (Dakins Solution 0.125%) 20 appl TOP DAILY [facility] Last Admin: 10/27/18 12:47 Dose: Not Given Spironolactone (Aldactone) 25 mg PO DAILY [facility] Last Admin: 10/27/18 08:59 Dose: 25 mg - Labs Labs: 10/18/18 07:50 10/18/18 07:50 Assessment and Plan (1) Acute osteomyelitis Assessment & Plan: B/L LE DM Wound Infection Continue Current Care Status: Acute (2) PVD (peripheral vascular disease) Status: Acute (3) Type 1 diabetes mellitus with diabetic foot infection Status: Acute (4) Diabetic foot ulcer Status: Acute (5) DVT prophylaxis Status: Acute (6) Fall Status: Acute
[2018-10-28] MEDS: Insulin Lispro (humaLOG) 100 Units/ml Inj SC SCH ×4 (08:22→21:51)
--- NOTE | 2018-10-28 09:20 | CP.PCM.PN ---
Subjective - Date & Time of Evaluation Date of Evaluation: 10/28/18 Time of Evaluation: 09:19 - Subjective Subjective: stable wound healing well Objective - Vital Signs/Intake and Output Vital Signs (last 24 hours): Temp Pulse Resp BP Pulse Ox 98 F 61 18 124/70 100 10/28/18 07:38 10/28/18 08:20 10/28/18 07:38 10/28/18 08:20 10/28/18 07:38 - Medications Medications: Current Medications Acetaminophen (Tylenol 325mg Tab) 650 mg PO Q6 PRN PRN Reason: Pain, moderate (4-7) Last Admin: 10/24/18 01:08 Dose: 650 mg Aspirin (Ecotrin) 81 mg PO DAILY [facility] Last Admin: 10/28/18 08:21 Dose: 81 mg Atorvastatin Calcium (Lipitor) 80 mg PO DAILY@2100 [facility] Last Admin: 10/27/18 21:30 Dose: 80 mg Clopidogrel Bisulfate (Plavix) 75 mg PO DAILY [facility] Last Admin: 10/28/18 08:21 Dose: 75 mg Diphenhydramine HCl (Benadryl) 25 mg PO Q6 PRN PRN Reason: Itching / Pruritus Last Admin: 10/17/18 22:26 Dose: 25 mg Furosemide (Lasix) 40 mg PO DAILY [facility] Last Admin: 10/28/18 08:20 Dose: 40 mg Gabapentin (Neurontin) 100 mg PO DAILY [facility] Last Admin: 10/28/18 08:21 Dose: 100 mg Guaifenesin/Dextromethorphan (Robitussin Dm) 10 ml PO Q6 PRN PRN Reason: Cough Last Admin: 09/24/18 00:58 Dose: 10 ml Heparin Sodium (Porcine) (Heparin) 5,000 units SC Q8 [facility]; Protocol Last Admin: 10/28/18 08:20 Dose: 5,000 units Piperacillin Sod/Tazobactam (Sod 3.375 gm/ Sodium Chloride) 100 mls @ 100 mls/hr IVPB Q8H [facility]; Protocol Last Admin: 10/28/18 05:47 Dose: 100 mls/hr Insulin Human Lispro (Humalog) 0 units SC QID [facility]; Protocol Last Admin: 10/28/18 08:22 Dose: Not Given Isosorbide Mononitrate (Imdur Er) 30 mg PO DAILY [facility] Last Admin: 10/28/18 08:21 Dose: 30 mg Lactic Acid (Lac-Hydrin 12% Lotion (225 G)) 1 applic TOP TID [facility] Last Admin: 10/28/18 08:22 Dose: Not Given Lactulose (Enulose) 20 gm PO DAILY PRN PRN Reason: Constipation Metoprolol Tartrate (Lopressor) 12.5 mg PO Q12 [facility] Last Admin: 10/28/18 08:20 Dose: 12.5 mg Mirtazapine (Remeron) 7.5 mg PO HS [facility] Last Admin: 10/27/18 22:13 Dose: 7.5 mg Montelukast Sodium (Singulair) 10 mg PO HS [facility] Last Admin: 10/27/18 22:13 Dose: 10 mg Ondansetron HCl (Zofran Inj) 4 mg IVP Q6 PRN PRN Reason: Nausea/Vomiting Last Admin: 10/10/18 09:13 Dose: 4 mg Pantoprazole Sodium (Protonix Ec Tab) 40 mg PO DAILY@0600 [facility] Last Admin: 10/28/18 05:47 Dose: 40 mg Sodium Hypochlorite (Dakins Solution 0.125%) 20 appl TOP DAILY [facility] Last Admin: 10/28/18 08:21 Dose: 20 appl Spironolactone (Aldactone) 25 mg PO DAILY [facility] Last Admin: 10/28/18 08:21 Dose: 25 mg - Labs Labs: 10/18/18 07:50 10/18/18 07:50 - Constitutional Appears: Well - Head Exam Head Exam: ATRAUMATIC, NORMAL INSPECTION, NORMOCEPHALIC - Eye Exam Eye Exam: EOMI, Normal appearance, PERRL Pupil Exam: NORMAL ACCOMODATION, PERRL - ENT Exam ENT Exam: Mucous Membranes Moist, Normal Exam - Neck Exam Neck Exam: Full ROM, Normal Inspection. absent: Lymphadenopathy - Respiratory Exam Respiratory Exam: Clear to Ausculation Bilateral, NORMAL BREATHING PATTERN - Cardiovascular Exam Cardiovascular Exam: REGULAR RHYTHM, +S1, +S2. absent: Murmur - GI/Abdominal Exam GI & Abdominal Exam: Soft, Normal Bowel Sounds. absent: Tenderness - Extremities Exam Extremities Exam: Full ROM, Normal Capillary Refill, Normal Inspection. absent: Joint Swelling, Pedal Edema - Back Exam Back Exam: NORMAL INSPECTION - Neurological Exam Neurological Exam: Alert, Awake, CN II-XII Intact, Normal Gait, Oriented x3 - Psychiatric Exam Psychiatric exam: Normal Affect, Normal Mood - Skin Skin Exam: Dry, Intact, Normal Color, Warm Assessment and Plan (1) PVD (peripheral vascular disease) Status: Acute (2) CAD (coronary artery disease) Status: Acute (3) HTN (hypertension) Status: Acute (4) Dyslipidemia Status: Acute (5) Diabetic foot ulcer Status: Acute
--- NOTE | 2018-10-28 09:54 | CP.PCM.PN ---
Subjective - Date & Time of Evaluation Date of Evaluation: 10/28/18 Time of Evaluation: 09:51 - Subjective Subjective: Podiatry Progress Note - Dr. Smith 72 y/o female seen and evaluated at bedside this morning for right plantar heel ulceration. Patient resting comfortably in bed and NAD. Patient states that she doesn't have pain in her foot. Dressing to RLE clean/intact with No strikethrough. Multipodus boots are in place. She denies any overnight F/C/N/V/CP/SOB. She denies any other pedal complaint at this time. Objective - Vital Signs/Intake and Output Vital Signs (last 24 hours): Temp Pulse Resp BP Pulse Ox 98 F 61 18 124/70 100 10/28/18 07:38 10/28/18 08:20 10/28/18 07:38 10/28/18 08:20 10/28/18 07:38 - Medications Medications: Current Medications Acetaminophen (Tylenol 325mg Tab) 650 mg PO Q6 PRN PRN Reason: Pain, moderate (4-7) Last Admin: 10/24/18 01:08 Dose: 650 mg Aspirin (Ecotrin) 81 mg PO DAILY [facility] Last Admin: 10/28/18 08:21 Dose: 81 mg Atorvastatin Calcium (Lipitor) 80 mg PO DAILY@2100 [facility] Last Admin: 10/27/18 21:30 Dose: 80 mg Clopidogrel Bisulfate (Plavix) 75 mg PO DAILY [facility] Last Admin: 10/28/18 08:21 Dose: 75 mg Diphenhydramine HCl (Benadryl) 25 mg PO Q6 PRN PRN Reason: Itching / Pruritus Last Admin: 10/17/18 22:26 Dose: 25 mg Furosemide (Lasix) 40 mg PO DAILY [facility] Last Admin: 10/28/18 08:20 Dose: 40 mg Gabapentin (Neurontin) 100 mg PO DAILY [facility] Last Admin: 10/28/18 08:21 Dose: 100 mg Guaifenesin/Dextromethorphan (Robitussin Dm) 10 ml PO Q6 PRN PRN Reason: Cough Last Admin: 09/24/18 00:58 Dose: 10 ml Heparin Sodium (Porcine) (Heparin) 5,000 units SC Q8 [facility]; Protocol Last Admin: 10/28/18 08:20 Dose: 5,000 units Piperacillin Sod/Tazobactam (Sod 3.375 gm/ Sodium Chloride) 100 mls @ 100 mls/hr IVPB Q8H [facility]; Protocol Last Admin: 10/28/18 05:47 Dose: 100 mls/hr Insulin Human Lispro (Humalog) 0 units SC QID [facility]; Protocol Last Admin: 10/28/18 08:22 Dose: Not Given Isosorbide Mononitrate (Imdur Er) 30 mg PO DAILY [facility] Last Admin: 10/28/18 08:21 Dose: 30 mg Lactic Acid (Lac-Hydrin 12% Lotion (225 G)) 1 applic TOP TID [facility] Last Admin: 10/28/18 08:22 Dose: Not Given Lactulose (Enulose) 20 gm PO DAILY PRN PRN Reason: Constipation Metoprolol Tartrate (Lopressor) 12.5 mg PO Q12 [facility] Last Admin: 10/28/18 08:20 Dose: 12.5 mg Mirtazapine (Remeron) 7.5 mg PO HS [facility] Last Admin: 10/27/18 22:13 Dose: 7.5 mg Montelukast Sodium (Singulair) 10 mg PO HS [facility] Last Admin: 10/27/18 22:13 Dose: 10 mg Ondansetron HCl (Zofran Inj) 4 mg IVP Q6 PRN PRN Reason: Nausea/Vomiting Last Admin: 10/10/18 09:13 Dose: 4 mg Pantoprazole Sodium (Protonix Ec Tab) 40 mg PO DAILY@0600 [facility] Last Admin: 10/28/18 05:47 Dose: 40 mg Sodium Hypochlorite (Dakins Solution 0.125%) 20 appl TOP DAILY [facility] Last Admin: 10/28/18 08:21 Dose: 20 appl Spironolactone (Aldactone) 25 mg PO DAILY [facility] Last Admin: 10/28/18 08:21 Dose: 25 mg - Labs Labs: 10/18/18 07:50 10/18/18 07:50 - Constitutional Appears: Well, Non-toxic, No Acute Distress - Head Exam Head Exam: ATRAUMATIC, NORMOCEPHALIC - Extremities Exam Additional comments: Right lower extremity exam: Vasc: DP/PT pulses non-palpable. Cap refill < 3 sec to all digits, Temp gradient warm to warm, +1 pitting edema noted to leg extending distally to digits. Neuro: Gross sensation intact, protective sensation absent Derm: Circular ulceration measuring approximately 3.2 cm x 3.0cmX0.2cm noted to R heel with 100% granular wound base, No malodor, minimal serous drainage, no purulence appreciated. No tunneling or tracking appreciated. No probe to bone. No evidence of cellulitis or superficial infection. Healed ulceration noted plantar-medial sub met 1. Mottled hyper-pigmented, dry, desquamate, tented skin to leg. MSK: Charcot foot deformity noted with rocker bottom foot. No pain on palpation to right heel wound. - Neurological Exam Neurological Exam: Alert, Awake, Oriented x3 Assessment and Plan - Assessment and Plan (Free Text) Assessment: 72 y/o female with Right plantar heel ulceration and chronic lower extremity stasis edema Plan: Patient seen and evaluated at the bedside Discussed with attending, Dr. 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 Continue abx per ID: PICC placed; continue Zosyn to complete 6 weeks for acute OM Continue local wound care. Dressing change of the right foot using Dakin's cleanse, DSD to R foot heel wound Patient advised to apply Ammonium lactate to her B/L LE scaling Multipodus boots to be worn at all times in bed Podiatry will continue to follow up the patient while in house
[2018-10-29] MEDS: Pantoprazole 40 mg EC Tab PO SCH (05:12)
[2018-10-29] MEDS: Piperacillin/Tazobact 3.375 GM in Sodium Chloride 0.9% 100 ML IVPB SCH ×3 (05:15→21:18)
[2018-10-29 05:54] LABS: BASO % 0.5 % (0.0-2.0); EOS # 0.6 K/uL (0.0-0.7); EOS % 9.6 % (0.0-4.0); HEMOGLOBIN 8.6 g/dL (12.0-16.0); LYMPH % 33.3 % (20.0-40.0); MEAN CELL VOLUME 88.8 fl (81.0-99.0); MEAN CORPUSCULAR HEMOGLOBIN 29.1 pg (27.0-31.0); MEAN CORPUSCULAR HGB CONC 32.8 g/dL (33.0-37.0); MEAN PLATELET VOLUME 8.8 fl (7.2-11.7); MONO # 0.4 K/uL (0.0-0.8); NEUT % 49.6 % (50.0-75.0); RBC 2.95 Mil/uL (3.80-5.20); RED CELL DISTRIBUTION WIDTH 15.2 % (11.5-14.5); WHITE BLOOD COUNT 6.1 K/uL (4.8-10.8)
[2018-10-29 06:58] LABS: ALB/GLOB RATIO 0.8 (1.0-2.1); ALT/SGPT 22 U/L (9-52); AST/SGOT 17 U/L (14-36); BLOOD UREA NITROGEN 22 mg/dl (7-17); CALCIUM 8.5 mg/dL (8.4-10.2); GFR NON-AFRICAN AMERICAN > 60
[2018-10-29] MEDS: Insulin Lispro (humaLOG) 100 Units/ml Inj SC SCH ×4 (09:44→22:32)
--- NOTE | 2018-10-29 23:05 | CP.PCM.PN ---
Subjective - Date & Time of Evaluation Date of Evaluation: 10/28/18 Time of Evaluation: 19:05 - Subjective Subjective: Seen and examined at the bed side. No new complaint. Objective - Vital Signs/Intake and Output Vital Signs (last 24 hours): Temp Pulse Resp BP Pulse Ox 97.5 F L 68 20 107/64 99 10/29/18 16:08 10/29/18 16:08 10/29/18 16:08 10/29/18 16:08 10/29/18 16:08 - Medications Medications: Current Medications Acetaminophen (Tylenol 325mg Tab) 650 mg PO Q6 PRN PRN Reason: Pain, moderate (4-7) Last Admin: 10/28/18 16:50 Dose: 650 mg Aspirin (Ecotrin) 81 mg PO DAILY [facility] Last Admin: 10/29/18 09:47 Dose: 81 mg Atorvastatin Calcium (Lipitor) 80 mg PO DAILY@2100 [facility] Last Admin: 10/29/18 21:17 Dose: 80 mg Clopidogrel Bisulfate (Plavix) 75 mg PO DAILY [facility] Last Admin: 10/29/18 09:50 Dose: 75 mg Diphenhydramine HCl (Benadryl) 25 mg PO Q6 PRN PRN Reason: Itching / Pruritus Last Admin: 10/17/18 22:26 Dose: 25 mg Furosemide (Lasix) 40 mg PO DAILY [facility] Last Admin: 10/29/18 09:49 Dose: 40 mg Gabapentin (Neurontin) 100 mg PO DAILY [facility] Last Admin: 10/29/18 09:50 Dose: 100 mg Guaifenesin/Dextromethorphan (Robitussin Dm) 10 ml PO Q6 PRN PRN Reason: Cough Last Admin: 09/24/18 00:58 Dose: 10 ml Heparin Sodium (Porcine) (Heparin) 5,000 units SC Q8 [facility]; Protocol Last Admin: 10/29/18 16:40 Dose: 5,000 units Piperacillin Sod/Tazobactam (Sod 3.375 gm/ Sodium Chloride) 100 mls @ 100 mls/hr IVPB Q8H [facility]; Protocol Last Admin: 10/29/18 21:18 Dose: 100 mls/hr Insulin Human Lispro (Humalog) 0 units SC QID [facility]; Protocol Last Admin: 10/29/18 22:32 Dose: Not Given Isosorbide Mononitrate (Imdur Er) 30 mg PO DAILY [facility] Last Admin: 10/29/18 09:48 Dose: 30 mg Lactic Acid (Lac-Hydrin 12% Lotion (225 G)) 1 applic TOP TID [facility] Last Admin: 10/29/18 16:41 Dose: Not Given Lactulose (Enulose) 20 gm PO DAILY PRN PRN Reason: Constipation Metoprolol Tartrate (Lopressor) 12.5 mg PO Q12 [facility] Last Admin: 10/29/18 21:22 Dose: Not Given Mirtazapine (Remeron) 7.5 mg PO HS [facility] Last Admin: 10/29/18 21:17 Dose: 7.5 mg Montelukast Sodium (Singulair) 10 mg PO HS [facility] Last Admin: 10/29/18 21:18 Dose: 10 mg Ondansetron HCl (Zofran Inj) 4 mg IVP Q6 PRN PRN Reason: Nausea/Vomiting Last Admin: 10/10/18 09:13 Dose: 4 mg Pantoprazole Sodium (Protonix Ec Tab) 40 mg PO DAILY@0600 [facility] Last Admin: 10/29/18 05:12 Dose: 40 mg Sodium Hypochlorite (Dakins Solution 0.125%) 20 appl TOP DAILY [facility] Last Admin: 10/29/18 09:46 Dose: 20 appl Spironolactone (Aldactone) 25 mg PO DAILY [facility] Last Admin: 10/29/18 09:45 Dose: 25 mg - Labs Labs: 10/29/18 05:40 10/29/18 05:40 Assessment and Plan (1) Acute osteomyelitis Status: Acute (2) PVD (peripheral vascular disease) Status: Acute (3) Type 1 diabetes mellitus with diabetic foot infection Status: Acute (4) Diabetic foot ulcer Status: Acute (5) DVT prophylaxis Status: Acute (6) Fall Status: Acute - Assessment and Plan (Free Text) Plan: Continue current care
--- NOTE | 2018-10-29 23:09 | CP.PCM.PN ---
Subjective - Date & Time of Evaluation Date of Evaluation: 10/29/18 Time of Evaluation: 20:05 - Subjective Subjective: Seen and examined at the bed side. Wound healing better. Denies any new complaint. Objective - Vital Signs/Intake and Output Vital Signs (last 24 hours): Temp Pulse Resp BP Pulse Ox 97.5 F L 68 20 107/64 99 10/29/18 16:08 10/29/18 16:08 10/29/18 16:08 10/29/18 16:08 10/29/18 16:08 - Medications Medications: Current Medications Acetaminophen (Tylenol 325mg Tab) 650 mg PO Q6 PRN PRN Reason: Pain, moderate (4-7) Last Admin: 10/28/18 16:50 Dose: 650 mg Aspirin (Ecotrin) 81 mg PO DAILY [facility] Last Admin: 10/29/18 09:47 Dose: 81 mg Atorvastatin Calcium (Lipitor) 80 mg PO DAILY@2100 [facility] Last Admin: 10/29/18 21:17 Dose: 80 mg Clopidogrel Bisulfate (Plavix) 75 mg PO DAILY [facility] Last Admin: 10/29/18 09:50 Dose: 75 mg Diphenhydramine HCl (Benadryl) 25 mg PO Q6 PRN PRN Reason: Itching / Pruritus Last Admin: 10/17/18 22:26 Dose: 25 mg Furosemide (Lasix) 40 mg PO DAILY [facility] Last Admin: 10/29/18 09:49 Dose: 40 mg Gabapentin (Neurontin) 100 mg PO DAILY [facility] Last Admin: 10/29/18 09:50 Dose: 100 mg Guaifenesin/Dextromethorphan (Robitussin Dm) 10 ml PO Q6 PRN PRN Reason: Cough Last Admin: 09/24/18 00:58 Dose: 10 ml Heparin Sodium (Porcine) (Heparin) 5,000 units SC Q8 [facility]; Protocol Last Admin: 10/29/18 16:40 Dose: 5,000 units Piperacillin Sod/Tazobactam (Sod 3.375 gm/ Sodium Chloride) 100 mls @ 100 mls/hr IVPB Q8H [facility]; Protocol Last Admin: 10/29/18 21:18 Dose: 100 mls/hr Insulin Human Lispro (Humalog) 0 units SC QID [facility]; Protocol Last Admin: 10/29/18 22:32 Dose: Not Given Isosorbide Mononitrate (Imdur Er) 30 mg PO DAILY [facility] Last Admin: 10/29/18 09:48 Dose: 30 mg Lactic Acid (Lac-Hydrin 12% Lotion (225 G)) 1 applic TOP TID [facility] Last Admin: 10/29/18 16:41 Dose: Not Given Lactulose (Enulose) 20 gm PO DAILY PRN PRN Reason: Constipation Metoprolol Tartrate (Lopressor) 12.5 mg PO Q12 [facility] Last Admin: 10/29/18 21:22 Dose: Not Given Mirtazapine (Remeron) 7.5 mg PO HS [facility] Last Admin: 10/29/18 21:17 Dose: 7.5 mg Montelukast Sodium (Singulair) 10 mg PO HS [facility] Last Admin: 10/29/18 21:18 Dose: 10 mg Ondansetron HCl (Zofran Inj) 4 mg IVP Q6 PRN PRN Reason: Nausea/Vomiting Last Admin: 10/10/18 09:13 Dose: 4 mg Pantoprazole Sodium (Protonix Ec Tab) 40 mg PO DAILY@0600 [facility] Last Admin: 10/29/18 05:12 Dose: 40 mg Sodium Hypochlorite (Dakins Solution 0.125%) 20 appl TOP DAILY [facility] Last Admin: 10/29/18 09:46 Dose: 20 appl Spironolactone (Aldactone) 25 mg PO DAILY [facility] Last Admin: 10/29/18 09:45 Dose: 25 mg - Labs Labs: 10/29/18 05:40 10/29/18 05:40 Assessment and Plan (1) Acute osteomyelitis Status: Acute (2) PVD (peripheral vascular disease) Status: Acute (3) Type 1 diabetes mellitus with diabetic foot infection Status: Acute (4) Diabetic foot ulcer Status: Acute (5) DVT prophylaxis Status: Acute (6) Fall Status: Acute - Assessment and Plan (Free Text) Plan: Continue Wound care and IV antibitics Patient's Son adSW working on her Medicaid application
[2018-10-30] MEDS: Pantoprazole 40 mg EC Tab PO SCH (06:07)
[2018-10-30] MEDS: Piperacillin/Tazobact 3.375 GM in Sodium Chloride 0.9% 100 ML IVPB SCH ×3 (06:08→21:56)
[2018-10-30] MEDS: Insulin Lispro (humaLOG) 100 Units/ml Inj SC SCH ×4 (09:04→22:00)
[2018-10-31] MEDS: Pantoprazole 40 mg EC Tab PO SCH (05:22)
[2018-10-31] MEDS: Piperacillin/Tazobact 3.375 GM in Sodium Chloride 0.9% 100 ML IVPB SCH ×3 (05:22→21:37)
--- NOTE | 2018-10-31 08:06 | CP.PCM.PN ---
Subjective - Date & Time of Evaluation Date of Evaluation: 10/31/18 Time of Evaluation: 08:03 - Subjective Subjective: Podiatry Progress Note - Dr. Smith 72 y/o female seen and evaluated at bedside this morning for right plantar heel ulceration. Patient resting comfortably in bed and NAD. Patient states that she doesn't have pain in her foot. Dressing to RLE clean/intact with No strike- through. Multipodus boots are in place. She denies any overnight F/C/N/V/CP/SOB. She denies any other pedal complaint at this time. Objective - Vital Signs/Intake and Output Vital Signs (last 24 hours): Temp Pulse Resp BP Pulse Ox 97.6 F 75 18 106/55 L 99 10/30/18 23:59 10/30/18 23:59 10/30/18 23:59 10/30/18 23:59 10/30/18 23:59 - Medications Medications: Current Medications Acetaminophen (Tylenol 325mg Tab) 650 mg PO Q6 PRN PRN Reason: Pain, moderate (4-7) Last Admin: 10/28/18 16:50 Dose: 650 mg Aspirin (Ecotrin) 81 mg PO DAILY [facility] Last Admin: 10/30/18 09:06 Dose: 81 mg Atorvastatin Calcium (Lipitor) 80 mg PO DAILY@2100 [facility] Last Admin: 10/30/18 21:56 Dose: 80 mg Clopidogrel Bisulfate (Plavix) 75 mg PO DAILY [facility] Last Admin: 10/30/18 09:01 Dose: 75 mg Diphenhydramine HCl (Benadryl) 25 mg PO Q6 PRN PRN Reason: Itching / Pruritus Last Admin: 10/17/18 22:26 Dose: 25 mg Furosemide (Lasix) 40 mg PO DAILY [facility] Last Admin: 10/30/18 09:00 Dose: 40 mg Gabapentin (Neurontin) 100 mg PO DAILY [facility] Last Admin: 10/30/18 09:01 Dose: 100 mg Guaifenesin/Dextromethorphan (Robitussin Dm) 10 ml PO Q6 PRN PRN Reason: Cough Last Admin: 09/24/18 00:58 Dose: 10 ml Heparin Sodium (Porcine) (Heparin) 5,000 units SC Q8 [facility]; Protocol Last Admin: 10/31/18 00:48 Dose: 5,000 units Piperacillin Sod/Tazobactam (Sod 3.375 gm/ Sodium Chloride) 100 mls @ 100 mls/hr IVPB Q8H [facility]; Protocol Last Admin: 10/31/18 05:22 Dose: 100 mls/hr Insulin Human Lispro (Humalog) 0 units SC QID [facility]; Protocol Last Admin: 10/30/18 22:00 Dose: Not Given Isosorbide Mononitrate (Imdur Er) 30 mg PO DAILY [facility] Last Admin: 10/30/18 09:01 Dose: 30 mg Lactic Acid (Lac-Hydrin 12% Lotion (225 G)) 1 applic TOP TID [facility] Last Admin: 10/30/18 17:09 Dose: Not Given Lactulose (Enulose) 20 gm PO DAILY PRN PRN Reason: Constipation Metoprolol Tartrate (Lopressor) 12.5 mg PO Q12 [facility] Last Admin: 10/30/18 21:50 Dose: 12.5 mg Mirtazapine (Remeron) 7.5 mg PO HS [facility] Last Admin: 10/30/18 21:55 Dose: 7.5 mg Montelukast Sodium (Singulair) 10 mg PO HS [facility] Last Admin: 10/30/18 21:55 Dose: 10 mg Ondansetron HCl (Zofran Inj) 4 mg IVP Q6 PRN PRN Reason: Nausea/Vomiting Last Admin: 10/10/18 09:13 Dose: 4 mg Pantoprazole Sodium (Protonix Ec Tab) 40 mg PO DAILY@0600 [facility] Last Admin: 10/31/18 05:22 Dose: 40 mg Sodium Hypochlorite (Dakins Solution 0.125%) 20 appl TOP DAILY [facility] Last Admin: 10/30/18 09:00 Dose: 20 appl Spironolactone (Aldactone) 25 mg PO DAILY [facility] Last Admin: 10/30/18 09:01 Dose: 25 mg - Labs Labs: 10/29/18 05:40 10/29/18 05:40 - Constitutional Appears: Well, Non-toxic, No Acute Distress - Head Exam Head Exam: ATRAUMATIC, NORMOCEPHALIC - Extremities Exam Additional comments: Right lower extremity exam: Vasc: DP/PT pulses non-palpable. Cap refill < 3 sec to all digits, Temp gradient warm to warm, +1 pitting edema noted to leg extending distally to digits. Neuro: Gross sensation intact, protective sensation absent Derm: Circular ulceration measuring approximately 2.5 cm x 2.3.0cmX0.2cm noted to R heel with 100% granular wound base, Border mildly macerated, No malodor, minimal serous drainage, no purulence appreciated. No tunneling or tracking appreciated. No probe to bone. No evidence of cellulitis or superficial infection. Healed ulceration noted plantar-medial sub met 1. Mottled hyper- pigmented, dry, desquamate, tented skin to leg. MSK: Charcot foot deformity noted with rocker bottom foot. No pain on palpation to right heel wound. - Neurological Exam Neurological Exam: Alert, Awake, Oriented x3 Assessment and Plan - Assessment and Plan (Free Text) Assessment: 72 y/o female with Right plantar heel ulceration and chronic lower extremity stasis edema Plan: Patient seen and evaluated at the bedside Discussed with attending, Dr. 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 Continue abx per ID: PICC placed; continue Zosyn to complete 6 weeks for acute OM Continue local wound care. Dressing change of the right foot using Dakin's cleanse, DSD to R foot heel wound Patient to continue applying Ammonium lactate to her B/L LE scaling Multipodus boots to be worn at all times in bed Podiatry will continue to follow up the patient while in house
[2018-10-31] MEDS: Insulin Lispro (humaLOG) 100 Units/ml Inj SC SCH ×4 (08:38→21:54)
[2018-10-31] MEDS: Lactobacillus Acidophilus 500 MU Cap PO SCH (21:38)
[2018-11-01] MEDS: Piperacillin/Tazobact 3.375 GM in Sodium Chloride 0.9% 100 ML IVPB SCH ×3 (06:09→21:53)
[2018-11-01] MEDS: Pantoprazole 40 mg EC Tab PO SCH (06:09)
[2018-11-01] MEDS: Insulin Lispro (humaLOG) 100 Units/ml Inj SC SCH ×4 (09:31→21:54)
[2018-11-01] MEDS: Lactobacillus Acidophilus 500 MU Cap PO SCH ×2 (09:42→17:24)
--- NOTE | 2018-11-01 17:04 | CP.PCM.PN ---
Subjective - Date & Time of Evaluation Date of Evaluation: 11/01/18 Time of Evaluation: 17:03 - Subjective Subjective: stable Objective - Vital Signs/Intake and Output Vital Signs (last 24 hours): Temp Pulse Resp BP Pulse Ox 97.6 F 71 20 107/62 98 11/01/18 16:11 11/01/18 16:11 11/01/18 16:11 11/01/18 16:11 11/01/18 16:11 - Medications Medications: Current Medications Acetaminophen (Tylenol 325mg Tab) 650 mg PO Q6 PRN PRN Reason: Pain, moderate (4-7) Last Admin: 10/28/18 16:50 Dose: 650 mg Aspirin (Ecotrin) 81 mg PO DAILY [facility] Last Admin: 11/01/18 09:27 Dose: 81 mg Atorvastatin Calcium (Lipitor) 80 mg PO DAILY@2100 [facility] Last Admin: 10/31/18 21:39 Dose: 80 mg Clopidogrel Bisulfate (Plavix) 75 mg PO DAILY [facility] Last Admin: 11/01/18 09:39 Dose: 75 mg Diphenhydramine HCl (Benadryl) 25 mg PO Q6 PRN PRN Reason: Itching / Pruritus Last Admin: 10/17/18 22:26 Dose: 25 mg Furosemide (Lasix) 40 mg PO DAILY [facility] Last Admin: 11/01/18 09:36 Dose: 40 mg Gabapentin (Neurontin) 100 mg PO DAILY [facility] Last Admin: 11/01/18 09:39 Dose: 100 mg Guaifenesin/Dextromethorphan (Robitussin Dm) 10 ml PO Q6 PRN PRN Reason: Cough Last Admin: 09/24/18 00:58 Dose: 10 ml Heparin Sodium (Porcine) (Heparin) 5,000 units SC Q8 [facility]; Protocol Last Admin: 11/01/18 09:28 Dose: 5,000 units Piperacillin Sod/Tazobactam (Sod 3.375 gm/ Sodium Chloride) 100 mls @ 100 mls/hr IVPB Q8H [facility]; Protocol Last Admin: 11/01/18 14:24 Dose: 100 mls/hr Insulin Human Lispro (Humalog) 0 units SC QID [facility]; Protocol Last Admin: 11/01/18 12:59 Dose: 1 unit Isosorbide Mononitrate (Imdur Er) 30 mg PO DAILY [facility] Last Admin: 11/01/18 09:33 Dose: 30 mg Lactic Acid (Lac-Hydrin 12% Lotion (225 G)) 1 applic TOP TID [facility] Last Admin: 11/01/18 14:57 Dose: Not Given Lactobacillus Acidophilus (Bacid Acidophilus) 1 cap PO BID [facility] Last Admin: 11/01/18 09:42 Dose: 1 cap Lactulose (Enulose) 20 gm PO DAILY PRN PRN Reason: Constipation Metoprolol Tartrate (Lopressor) 12.5 mg PO Q12 [facility] Last Admin: 11/01/18 09:36 Dose: 12.5 mg Metronidazole (Flagyl) 500 mg PO Q8H [facility]; Protocol Last Admin: 11/01/18 12:58 Dose: 500 mg Mirtazapine (Remeron) 7.5 mg PO HS [facility] Last Admin: 10/31/18 21:39 Dose: 7.5 mg Montelukast Sodium (Singulair) 10 mg PO HS [facility] Last Admin: 10/31/18 21:39 Dose: 10 mg Ondansetron HCl (Zofran Inj) 4 mg IVP Q6 PRN PRN Reason: Nausea/Vomiting Last Admin: 10/10/18 09:13 Dose: 4 mg Pantoprazole Sodium (Protonix Ec Tab) 40 mg PO DAILY@0600 [facility] Last Admin: 11/01/18 06:09 Dose: 40 mg Sodium Hypochlorite (Dakins Solution 0.125%) 20 appl TOP DAILY [facility] Last Admin: 11/01/18 09:35 Dose: 20 appl Spironolactone (Aldactone) 25 mg PO DAILY [facility] Last Admin: 11/01/18 09:21 Dose: 25 mg - Labs Labs: 10/29/18 05:40 10/29/18 05:40 - Constitutional Appears: Well - Head Exam Head Exam: ATRAUMATIC, NORMAL INSPECTION, NORMOCEPHALIC - Eye Exam Eye Exam: EOMI, Normal appearance, PERRL Pupil Exam: NORMAL ACCOMODATION, PERRL - ENT Exam ENT Exam: Mucous Membranes Moist, Normal Exam - Neck Exam Neck Exam: Full ROM, Normal Inspection. absent: Lymphadenopathy - Respiratory Exam Respiratory Exam: Clear to Ausculation Bilateral, NORMAL BREATHING PATTERN - Cardiovascular Exam Cardiovascular Exam: REGULAR RHYTHM, +S1, +S2. absent: Murmur - GI/Abdominal Exam GI & Abdominal Exam: Soft, Normal Bowel Sounds. absent: Tenderness - Extremities Exam Extremities Exam: Full ROM, Normal Capillary Refill, Normal Inspection. absent: Joint Swelling, Pedal Edema - Back Exam Back Exam: NORMAL INSPECTION - Neurological Exam Neurological Exam: Alert, Awake, CN II-XII Intact, Normal Gait, Oriented x3 - Psychiatric Exam Psychiatric exam: Normal Affect, Normal Mood - Skin Skin Exam: Dry, Intact, Normal Color, Warm Assessment and Plan (1) PVD (peripheral vascular disease) Status: Acute (2) CAD (coronary artery disease) Status: Acute (3) HTN (hypertension) Status: Acute (4) Dyslipidemia Status: Acute (5) Diabetic foot ulcer Status: Acute
[2018-11-02] MEDS: Piperacillin/Tazobact 3.375 GM in Sodium Chloride 0.9% 100 ML IVPB SCH ×3 (06:06→21:17)
[2018-11-02] MEDS: Pantoprazole 40 mg EC Tab PO SCH (06:06)
[2018-11-02] MEDS: Insulin Lispro (humaLOG) 100 Units/ml Inj SC SCH ×4 (08:25→21:50)
[2018-11-02] MEDS: Lactobacillus Acidophilus 500 MU Cap PO SCH ×2 (08:25→17:29)
--- NOTE | 2018-11-03 00:33 | CP.PCM.PN ---
Subjective - Date & Time of Evaluation Date of Evaluation: 10/30/18 Time of Evaluation: 19:15 Objective - Vital Signs/Intake and Output Vital Signs (last 24 hours): Temp Pulse Resp BP Pulse Ox 98.1 F 77 20 110/68 95 11/02/18 16:08 11/02/18 21:18 11/02/18 16:08 11/02/18 21:18 11/02/18 16:08 - Medications Medications: Current Medications Acetaminophen (Tylenol 325mg Tab) 650 mg PO Q6 PRN PRN Reason: Pain, moderate (4-7) Last Admin: 10/28/18 16:50 Dose: 650 mg Aspirin (Ecotrin) 81 mg PO DAILY [facility] Last Admin: 11/02/18 08:27 Dose: 81 mg Atorvastatin Calcium (Lipitor) 80 mg PO DAILY@2100 [facility] Last Admin: 11/02/18 21:18 Dose: 80 mg Clopidogrel Bisulfate (Plavix) 75 mg PO DAILY [facility] Last Admin: 11/02/18 08:28 Dose: 75 mg Diphenhydramine HCl (Benadryl) 25 mg PO Q6 PRN PRN Reason: Itching / Pruritus Last Admin: 10/17/18 22:26 Dose: 25 mg Furosemide (Lasix) 40 mg PO DAILY [facility] Last Admin: 11/02/18 08:26 Dose: 40 mg Gabapentin (Neurontin) 100 mg PO DAILY [facility] Last Admin: 11/02/18 08:28 Dose: 100 mg Guaifenesin/Dextromethorphan (Robitussin Dm) 10 ml PO Q6 PRN PRN Reason: Cough Last Admin: 09/24/18 00:58 Dose: 10 ml Heparin Sodium (Porcine) (Heparin) 5,000 units SC Q8 [facility]; Protocol Last Admin: 11/03/18 00:13 Dose: 5,000 units Piperacillin Sod/Tazobactam (Sod 3.375 gm/ Sodium Chloride) 100 mls @ 100 mls/hr IVPB Q8H [facility]; Protocol Last Admin: 11/02/18 21:17 Dose: 100 mls/hr Insulin Human Lispro (Humalog) 0 units SC QID [facility]; Protocol Last Admin: 11/02/18 21:50 Dose: Not Given Isosorbide Mononitrate (Imdur Er) 30 mg PO DAILY [facility] Last Admin: 11/02/18 08:27 Dose: 30 mg Lactic Acid (Lac-Hydrin 12% Lotion (225 G)) 1 applic TOP TID [facility] Last Admin: 11/02/18 17:29 Dose: Not Given Lactobacillus Acidophilus (Bacid Acidophilus) 1 cap PO BID [facility] Last Admin: 11/02/18 17:29 Dose: 1 cap Lactulose (Enulose) 20 gm PO DAILY PRN PRN Reason: Constipation Metoprolol Tartrate (Lopressor) 12.5 mg PO Q12 [facility] Last Admin: 11/02/18 21:18 Dose: 12.5 mg Mirtazapine (Remeron) 7.5 mg PO HS [facility] Last Admin: 11/02/18 21:18 Dose: 7.5 mg Montelukast Sodium (Singulair) 10 mg PO HS [facility] Last Admin: 11/02/18 21:18 Dose: 10 mg Ondansetron HCl (Zofran Inj) 4 mg IVP Q6 PRN PRN Reason: Nausea/Vomiting Last Admin: 10/10/18 09:13 Dose: 4 mg Pantoprazole Sodium (Protonix Ec Tab) 40 mg PO DAILY@0600 [facility] Last Admin: 11/02/18 06:06 Dose: 40 mg Sodium Hypochlorite (Dakins Solution 0.125%) 20 appl TOP DAILY [facility] Last Admin: 11/02/18 08:27 Dose: 20 appl Spironolactone (Aldactone) 25 mg PO DAILY [facility] Last Admin: 11/02/18 08:28 Dose: 25 mg - Labs Labs: 10/29/18 05:40 10/29/18 05:40 Assessment and Plan (1) Acute osteomyelitis Status: Acute (2) PVD (peripheral vascular disease) Status: Acute (3) Type 1 diabetes mellitus with diabetic foot infection Status: Acute (4) Diabetic foot ulcer Status: Acute (5) DVT prophylaxis Status: Acute (6) Fall Status: Acute
--- NOTE | 2018-11-03 00:34 | CP.PCM.PN ---
Subjective - Date & Time of Evaluation Date of Evaluation: 11/01/18 Time of Evaluation: 07:40 Objective - Vital Signs/Intake and Output Vital Signs (last 24 hours): Temp Pulse Resp BP Pulse Ox 98.1 F 77 20 110/68 95 11/02/18 16:08 11/02/18 21:18 11/02/18 16:08 11/02/18 21:18 11/02/18 16:08 - Medications Medications: Current Medications Acetaminophen (Tylenol 325mg Tab) 650 mg PO Q6 PRN PRN Reason: Pain, moderate (4-7) Last Admin: 10/28/18 16:50 Dose: 650 mg Aspirin (Ecotrin) 81 mg PO DAILY [facility] Last Admin: 11/02/18 08:27 Dose: 81 mg Atorvastatin Calcium (Lipitor) 80 mg PO DAILY@2100 [facility] Last Admin: 11/02/18 21:18 Dose: 80 mg Clopidogrel Bisulfate (Plavix) 75 mg PO DAILY [facility] Last Admin: 11/02/18 08:28 Dose: 75 mg Diphenhydramine HCl (Benadryl) 25 mg PO Q6 PRN PRN Reason: Itching / Pruritus Last Admin: 10/17/18 22:26 Dose: 25 mg Furosemide (Lasix) 40 mg PO DAILY [facility] Last Admin: 11/02/18 08:26 Dose: 40 mg Gabapentin (Neurontin) 100 mg PO DAILY [facility] Last Admin: 11/02/18 08:28 Dose: 100 mg Guaifenesin/Dextromethorphan (Robitussin Dm) 10 ml PO Q6 PRN PRN Reason: Cough Last Admin: 09/24/18 00:58 Dose: 10 ml Heparin Sodium (Porcine) (Heparin) 5,000 units SC Q8 [facility]; Protocol Last Admin: 11/03/18 00:13 Dose: 5,000 units Piperacillin Sod/Tazobactam (Sod 3.375 gm/ Sodium Chloride) 100 mls @ 100 mls/hr IVPB Q8H [facility]; Protocol Last Admin: 11/02/18 21:17 Dose: 100 mls/hr Insulin Human Lispro (Humalog) 0 units SC QID [facility]; Protocol Last Admin: 11/02/18 21:50 Dose: Not Given Isosorbide Mononitrate (Imdur Er) 30 mg PO DAILY [facility] Last Admin: 11/02/18 08:27 Dose: 30 mg Lactic Acid (Lac-Hydrin 12% Lotion (225 G)) 1 applic TOP TID [facility] Last Admin: 11/02/18 17:29 Dose: Not Given Lactobacillus Acidophilus (Bacid Acidophilus) 1 cap PO BID [facility] Last Admin: 11/02/18 17:29 Dose: 1 cap Lactulose (Enulose) 20 gm PO DAILY PRN PRN Reason: Constipation Metoprolol Tartrate (Lopressor) 12.5 mg PO Q12 [facility] Last Admin: 11/02/18 21:18 Dose: 12.5 mg Mirtazapine (Remeron) 7.5 mg PO HS [facility] Last Admin: 11/02/18 21:18 Dose: 7.5 mg Montelukast Sodium (Singulair) 10 mg PO HS [facility] Last Admin: 11/02/18 21:18 Dose: 10 mg Ondansetron HCl (Zofran Inj) 4 mg IVP Q6 PRN PRN Reason: Nausea/Vomiting Last Admin: 10/10/18 09:13 Dose: 4 mg Pantoprazole Sodium (Protonix Ec Tab) 40 mg PO DAILY@0600 [facility] Last Admin: 11/02/18 06:06 Dose: 40 mg Sodium Hypochlorite (Dakins Solution 0.125%) 20 appl TOP DAILY [facility] Last Admin: 11/02/18 08:27 Dose: 20 appl Spironolactone (Aldactone) 25 mg PO DAILY [facility] Last Admin: 11/02/18 08:28 Dose: 25 mg - Labs Labs: 10/29/18 05:40 10/29/18 05:40 Assessment and Plan (1) Acute osteomyelitis Status: Acute (2) PVD (peripheral vascular disease) Status: Acute (3) Type 1 diabetes mellitus with diabetic foot infection Status: Acute (4) Diabetic foot ulcer Status: Acute (5) DVT prophylaxis Status: Acute (6) Fall Status: Acute
--- NOTE | 2018-11-03 00:34 | CP.PCM.PN ---
Subjective - Date & Time of Evaluation Date of Evaluation: 10/31/18 Time of Evaluation: 07:35 Objective - Vital Signs/Intake and Output Vital Signs (last 24 hours): Temp Pulse Resp BP Pulse Ox 98.1 F 77 20 110/68 95 11/02/18 16:08 11/02/18 21:18 11/02/18 16:08 11/02/18 21:18 11/02/18 16:08 - Medications Medications: Current Medications Acetaminophen (Tylenol 325mg Tab) 650 mg PO Q6 PRN PRN Reason: Pain, moderate (4-7) Last Admin: 10/28/18 16:50 Dose: 650 mg Aspirin (Ecotrin) 81 mg PO DAILY [facility] Last Admin: 11/02/18 08:27 Dose: 81 mg Atorvastatin Calcium (Lipitor) 80 mg PO DAILY@2100 [facility] Last Admin: 11/02/18 21:18 Dose: 80 mg Clopidogrel Bisulfate (Plavix) 75 mg PO DAILY [facility] Last Admin: 11/02/18 08:28 Dose: 75 mg Diphenhydramine HCl (Benadryl) 25 mg PO Q6 PRN PRN Reason: Itching / Pruritus Last Admin: 10/17/18 22:26 Dose: 25 mg Furosemide (Lasix) 40 mg PO DAILY [facility] Last Admin: 11/02/18 08:26 Dose: 40 mg Gabapentin (Neurontin) 100 mg PO DAILY [facility] Last Admin: 11/02/18 08:28 Dose: 100 mg Guaifenesin/Dextromethorphan (Robitussin Dm) 10 ml PO Q6 PRN PRN Reason: Cough Last Admin: 09/24/18 00:58 Dose: 10 ml Heparin Sodium (Porcine) (Heparin) 5,000 units SC Q8 [facility]; Protocol Last Admin: 11/03/18 00:13 Dose: 5,000 units Piperacillin Sod/Tazobactam (Sod 3.375 gm/ Sodium Chloride) 100 mls @ 100 mls/hr IVPB Q8H [facility]; Protocol Last Admin: 11/02/18 21:17 Dose: 100 mls/hr Insulin Human Lispro (Humalog) 0 units SC QID [facility]; Protocol Last Admin: 11/02/18 21:50 Dose: Not Given Isosorbide Mononitrate (Imdur Er) 30 mg PO DAILY [facility] Last Admin: 11/02/18 08:27 Dose: 30 mg Lactic Acid (Lac-Hydrin 12% Lotion (225 G)) 1 applic TOP TID [facility] Last Admin: 11/02/18 17:29 Dose: Not Given Lactobacillus Acidophilus (Bacid Acidophilus) 1 cap PO BID [facility] Last Admin: 11/02/18 17:29 Dose: 1 cap Lactulose (Enulose) 20 gm PO DAILY PRN PRN Reason: Constipation Metoprolol Tartrate (Lopressor) 12.5 mg PO Q12 [facility] Last Admin: 11/02/18 21:18 Dose: 12.5 mg Mirtazapine (Remeron) 7.5 mg PO HS [facility] Last Admin: 11/02/18 21:18 Dose: 7.5 mg Montelukast Sodium (Singulair) 10 mg PO HS [facility] Last Admin: 11/02/18 21:18 Dose: 10 mg Ondansetron HCl (Zofran Inj) 4 mg IVP Q6 PRN PRN Reason: Nausea/Vomiting Last Admin: 10/10/18 09:13 Dose: 4 mg Pantoprazole Sodium (Protonix Ec Tab) 40 mg PO DAILY@0600 [facility] Last Admin: 11/02/18 06:06 Dose: 40 mg Sodium Hypochlorite (Dakins Solution 0.125%) 20 appl TOP DAILY [facility] Last Admin: 11/02/18 08:27 Dose: 20 appl Spironolactone (Aldactone) 25 mg PO DAILY [facility] Last Admin: 11/02/18 08:28 Dose: 25 mg - Labs Labs: 10/29/18 05:40 10/29/18 05:40 Assessment and Plan (1) Acute osteomyelitis Status: Acute (2) PVD (peripheral vascular disease) Status: Acute (3) Type 1 diabetes mellitus with diabetic foot infection Status: Acute (4) Diabetic foot ulcer Status: Acute (5) DVT prophylaxis Status: Acute (6) Fall Status: Acute
--- NOTE | 2018-11-03 00:35 | CP.PCM.PN ---
Subjective - Date & Time of Evaluation Date of Evaluation: 11/02/18 Time of Evaluation: 08:15 Objective - Vital Signs/Intake and Output Vital Signs (last 24 hours): Temp Pulse Resp BP Pulse Ox 98.1 F 77 20 110/68 95 11/02/18 16:08 11/02/18 21:18 11/02/18 16:08 11/02/18 21:18 11/02/18 16:08 - Medications Medications: Current Medications Acetaminophen (Tylenol 325mg Tab) 650 mg PO Q6 PRN PRN Reason: Pain, moderate (4-7) Last Admin: 10/28/18 16:50 Dose: 650 mg Aspirin (Ecotrin) 81 mg PO DAILY [facility] Last Admin: 11/02/18 08:27 Dose: 81 mg Atorvastatin Calcium (Lipitor) 80 mg PO DAILY@2100 [facility] Last Admin: 11/02/18 21:18 Dose: 80 mg Clopidogrel Bisulfate (Plavix) 75 mg PO DAILY [facility] Last Admin: 11/02/18 08:28 Dose: 75 mg Diphenhydramine HCl (Benadryl) 25 mg PO Q6 PRN PRN Reason: Itching / Pruritus Last Admin: 10/17/18 22:26 Dose: 25 mg Furosemide (Lasix) 40 mg PO DAILY [facility] Last Admin: 11/02/18 08:26 Dose: 40 mg Gabapentin (Neurontin) 100 mg PO DAILY [facility] Last Admin: 11/02/18 08:28 Dose: 100 mg Guaifenesin/Dextromethorphan (Robitussin Dm) 10 ml PO Q6 PRN PRN Reason: Cough Last Admin: 09/24/18 00:58 Dose: 10 ml Heparin Sodium (Porcine) (Heparin) 5,000 units SC Q8 [facility]; Protocol Last Admin: 11/03/18 00:13 Dose: 5,000 units Piperacillin Sod/Tazobactam (Sod 3.375 gm/ Sodium Chloride) 100 mls @ 100 mls/hr IVPB Q8H [facility]; Protocol Last Admin: 11/02/18 21:17 Dose: 100 mls/hr Insulin Human Lispro (Humalog) 0 units SC QID [facility]; Protocol Last Admin: 11/02/18 21:50 Dose: Not Given Isosorbide Mononitrate (Imdur Er) 30 mg PO DAILY [facility] Last Admin: 11/02/18 08:27 Dose: 30 mg Lactic Acid (Lac-Hydrin 12% Lotion (225 G)) 1 applic TOP TID [facility] Last Admin: 11/02/18 17:29 Dose: Not Given Lactobacillus Acidophilus (Bacid Acidophilus) 1 cap PO BID [facility] Last Admin: 11/02/18 17:29 Dose: 1 cap Lactulose (Enulose) 20 gm PO DAILY PRN PRN Reason: Constipation Metoprolol Tartrate (Lopressor) 12.5 mg PO Q12 [facility] Last Admin: 11/02/18 21:18 Dose: 12.5 mg Mirtazapine (Remeron) 7.5 mg PO HS [facility] Last Admin: 11/02/18 21:18 Dose: 7.5 mg Montelukast Sodium (Singulair) 10 mg PO HS [facility] Last Admin: 11/02/18 21:18 Dose: 10 mg Ondansetron HCl (Zofran Inj) 4 mg IVP Q6 PRN PRN Reason: Nausea/Vomiting Last Admin: 10/10/18 09:13 Dose: 4 mg Pantoprazole Sodium (Protonix Ec Tab) 40 mg PO DAILY@0600 [facility] Last Admin: 11/02/18 06:06 Dose: 40 mg Sodium Hypochlorite (Dakins Solution 0.125%) 20 appl TOP DAILY [facility] Last Admin: 11/02/18 08:27 Dose: 20 appl Spironolactone (Aldactone) 25 mg PO DAILY [facility] Last Admin: 11/02/18 08:28 Dose: 25 mg - Labs Labs: 10/29/18 05:40 10/29/18 05:40 Assessment and Plan (1) Acute osteomyelitis Status: Acute (2) PVD (peripheral vascular disease) Status: Acute (3) Type 1 diabetes mellitus with diabetic foot infection Status: Acute (4) Diabetic foot ulcer Status: Acute (5) DVT prophylaxis Status: Acute (6) Fall Status: Acute
[2018-11-03] MEDS: Piperacillin/Tazobact 3.375 GM in Sodium Chloride 0.9% 100 ML IVPB SCH ×2 (06:13→21:43)
[2018-11-03] MEDS: Pantoprazole 40 mg EC Tab PO SCH (06:13)
[2018-11-03] MEDS: Insulin Lispro (humaLOG) 100 Units/ml Inj SC SCH ×4 (10:09→22:15)
[2018-11-03] MEDS: Lactobacillus Acidophilus 500 MU Cap PO SCH ×2 (10:15→17:26)
[2018-11-04] MEDS: Pantoprazole 40 mg EC Tab PO SCH (05:24)
[2018-11-04] MEDS: Piperacillin/Tazobact 3.375 GM in Sodium Chloride 0.9% 100 ML IVPB SCH ×3 (05:25→20:18)
[2018-11-04] MEDS: Insulin Lispro (humaLOG) 100 Units/ml Inj SC SCH ×4 (09:58→21:53)
[2018-11-04] MEDS: Lactobacillus Acidophilus 500 MU Cap PO SCH ×2 (09:58→17:02)
--- NOTE | 2018-11-04 11:22 | CP.PCM.PN ---
Subjective - Date & Time of Evaluation Date of Evaluation: 11/04/18 Time of Evaluation: 11:20 - Subjective Subjective: Podiatry progress note for Dr. Smith 72F seen and evaluated at bedside. Patient resting comfortably in bed and NAD. Denies foot pain. Dressing to RLE clean/intact with No strike-through. Multipodus boots are in place. She denies any overnight F/C/N/V/CP/SOB. Has no other acute complaints. Objective - Vital Signs/Intake and Output Vital Signs (last 24 hours): Temp Pulse Resp BP Pulse Ox 97.6 F 72 20 107/64 100 11/04/18 08:05 11/04/18 08:05 11/04/18 08:05 11/04/18 09:56 11/04/18 08:05 - Medications Medications: Current Medications Acetaminophen (Tylenol 325mg Tab) 650 mg PO Q6 PRN PRN Reason: Pain, moderate (4-7) Last Admin: 11/04/18 01:56 Dose: 650 mg Aspirin (Ecotrin) 81 mg PO DAILY [facility] Last Admin: 11/04/18 09:57 Dose: 81 mg Atorvastatin Calcium (Lipitor) 80 mg PO DAILY@2100 [facility] Last Admin: 11/03/18 20:28 Dose: 80 mg Clopidogrel Bisulfate (Plavix) 75 mg PO DAILY [facility] Last Admin: 11/04/18 09:57 Dose: 75 mg Diphenhydramine HCl (Benadryl) 25 mg PO Q6 PRN PRN Reason: Itching / Pruritus Last Admin: 10/17/18 22:26 Dose: 25 mg Furosemide (Lasix) 40 mg PO DAILY [facility] Last Admin: 11/04/18 09:56 Dose: 40 mg Gabapentin (Neurontin) 100 mg PO DAILY [facility] Last Admin: 11/04/18 09:58 Dose: 100 mg Guaifenesin/Dextromethorphan (Robitussin Dm) 10 ml PO Q6 PRN PRN Reason: Cough Last Admin: 09/24/18 00:58 Dose: 10 ml Heparin Sodium (Porcine) (Heparin) 5,000 units SC Q8 [facility]; Protocol Last Admin: 11/04/18 09:58 Dose: 5,000 units Piperacillin Sod/Tazobactam (Sod 3.375 gm/ Sodium Chloride) 100 mls @ 100 mls/hr IVPB Q8H [facility]; Protocol Last Admin: 11/04/18 05:25 Dose: 100 mls/hr Insulin Human Lispro (Humalog) 0 units SC QID [facility]; Protocol Last Admin: 11/04/18 09:58 Dose: 1 unit Isosorbide Mononitrate (Imdur Er) 30 mg PO DAILY [facility] Last Admin: 11/04/18 09:58 Dose: 30 mg Lactic Acid (Lac-Hydrin 12% Lotion (225 G)) 1 applic TOP TID [facility] Last Admin: 11/04/18 10:06 Dose: Not Given Lactobacillus Acidophilus (Bacid Acidophilus) 1 cap PO BID [facility] Last Admin: 11/04/18 09:58 Dose: 1 cap Lactulose (Enulose) 20 gm PO DAILY PRN PRN Reason: Constipation Metoprolol Tartrate (Lopressor) 12.5 mg PO Q12 [facility] Last Admin: 11/04/18 09:58 Dose: 12.5 mg Mirtazapine (Remeron) 7.5 mg PO HS [facility] Last Admin: 11/03/18 21:05 Dose: 7.5 mg Montelukast Sodium (Singulair) 10 mg PO HS [facility] Last Admin: 11/03/18 21:05 Dose: 10 mg Ondansetron HCl (Zofran Inj) 4 mg IVP Q6 PRN PRN Reason: Nausea/Vomiting Last Admin: 10/10/18 09:13 Dose: 4 mg Pantoprazole Sodium (Protonix Ec Tab) 40 mg PO DAILY@0600 [facility] Last Admin: 11/04/18 05:24 Dose: 40 mg Sodium Hypochlorite (Dakins Solution 0.125%) 20 appl TOP DAILY [facility] Last Admin: 11/04/18 09:58 Dose: 20 appl Spironolactone (Aldactone) 25 mg PO DAILY [facility] Last Admin: 11/04/18 09:58 Dose: 25 mg - Labs Labs: 10/29/18 05:40 10/29/18 05:40 - Constitutional Appears: Well, Non-toxic, No Acute Distress - Head Exam Head Exam: ATRAUMATIC, NORMOCEPHALIC - Extremities Exam Additional comments: Right lower extremity exam: Vasc: DP/PT pulses non-palpable. Cap refill < 3 sec to all digits, Temp gradient warm to warm, +1 pitting edema noted to leg extending distally to digits. Neuro: Gross sensation intact, protective sensation absent Derm: Circular ulceration measuring approximately 2.5 cm x 2.3.0cmX0.2cm noted to R heel with 100% granular wound base, Border mildly macerated, No malodor, minimal serous drainage, no purulence appreciated. No tunneling or tracking appreciated. No probe to bone. No evidence of cellulitis or superficial infection. Healed ulceration noted plantar-medial sub met 1. Mottled hyper- pigmented, dry, desquamate, tented skin to leg. MSK: Charcot foot deformity noted with rocker bottom foot. No pain on palpation to right heel wound. - Neurological Exam Neurological Exam: Alert, Awake, Oriented x3 - Psychiatric Exam Psychiatric exam: Normal Affect, Normal Mood Assessment and Plan - Assessment and Plan (Free Text) Assessment: 72F with Right plantar heel ulceration and chronic lower extremity stasis edema Plan: Patient seen and evaluated Discussed in detail with Dr. 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 Continue abx per ID: PICC placed; continue Zosyn to complete 6 weeks for acute OM Wound cleansed with dakin's and dressed with DSD Patient to continue applying Ammonium lactate to her B/L LE scaling Multipodus boots to be worn at all times in bed Podiatry will continue to follow up the patient while in house
[2018-11-05] MEDS: Piperacillin/Tazobact 3.375 GM in Sodium Chloride 0.9% 100 ML IVPB SCH ×3 (05:30→20:21)
[2018-11-05] MEDS: Pantoprazole 40 mg EC Tab PO SCH (06:06)
[2018-11-05] MEDS: Lactobacillus Acidophilus 500 MU Cap PO SCH ×2 (08:38→17:02)
[2018-11-05] MEDS: Insulin Lispro (humaLOG) 100 Units/ml Inj SC SCH ×4 (09:16→22:30)
--- NOTE | 2018-11-05 19:20 | CP.PCM.PN ---
Subjective - Date & Time of Evaluation Date of Evaluation: 11/04/18 Time of Evaluation: 17:50 Objective - Vital Signs/Intake and Output Vital Signs (last 24 hours): Temp Pulse Resp BP Pulse Ox 98.3 F 66 18 100/65 98 11/05/18 17:00 11/05/18 17:00 11/05/18 17:00 11/05/18 17:00 11/05/18 17:00 - Medications Medications: Current Medications Acetaminophen (Tylenol 325mg Tab) 650 mg PO Q6 PRN PRN Reason: Pain, moderate (4-7) Last Admin: 11/04/18 01:56 Dose: 650 mg Aspirin (Ecotrin) 81 mg PO DAILY [facility] Last Admin: 11/05/18 08:34 Dose: 81 mg Atorvastatin Calcium (Lipitor) 80 mg PO DAILY@2100 [facility] Last Admin: 11/04/18 20:17 Dose: 80 mg Clopidogrel Bisulfate (Plavix) 75 mg PO DAILY [facility] Last Admin: 11/05/18 08:34 Dose: 75 mg Diphenhydramine HCl (Benadryl) 25 mg PO Q6 PRN PRN Reason: Itching / Pruritus Last Admin: 10/17/18 22:26 Dose: 25 mg Furosemide (Lasix) 40 mg PO DAILY [facility] Last Admin: 11/05/18 08:33 Dose: 40 mg Gabapentin (Neurontin) 100 mg PO DAILY [facility] Last Admin: 11/05/18 08:35 Dose: 100 mg Guaifenesin/Dextromethorphan (Robitussin Dm) 10 ml PO Q6 PRN PRN Reason: Cough Last Admin: 09/24/18 00:58 Dose: 10 ml Heparin Sodium (Porcine) (Heparin) 5,000 units SC Q8 [facility]; Protocol Last Admin: 11/05/18 17:09 Dose: 5,000 units Piperacillin Sod/Tazobactam (Sod 3.375 gm/ Sodium Chloride) 100 mls @ 100 mls/hr IVPB Q8H [facility]; Protocol Last Admin: 11/05/18 13:02 Dose: 100 mls/hr Insulin Human Lispro (Humalog) 0 units SC QID [facility]; Protocol Last Admin: 11/05/18 17:10 Dose: 1 unit Isosorbide Mononitrate (Imdur Er) 30 mg PO DAILY [facility] Last Admin: 11/05/18 08:34 Dose: 30 mg Lactic Acid (Lac-Hydrin 12% Lotion (225 G)) 1 applic TOP TID [facility] Last Admin: 11/05/18 17:10 Dose: Not Given Lactobacillus Acidophilus (Bacid Acidophilus) 1 cap PO BID [facility] Last Admin: 11/05/18 17:02 Dose: 1 cap Lactulose (Enulose) 20 gm PO DAILY PRN PRN Reason: Constipation Metoprolol Tartrate (Lopressor) 12.5 mg PO Q12 [facility] Last Admin: 11/05/18 08:33 Dose: 12.5 mg Mirtazapine (Remeron) 7.5 mg PO HS [facility] Last Admin: 11/04/18 21:24 Dose: 7.5 mg Montelukast Sodium (Singulair) 10 mg PO HS [facility] Last Admin: 11/04/18 21:25 Dose: 10 mg Ondansetron HCl (Zofran Inj) 4 mg IVP Q6 PRN PRN Reason: Nausea/Vomiting Last Admin: 10/10/18 09:13 Dose: 4 mg Pantoprazole Sodium (Protonix Ec Tab) 40 mg PO DAILY@0600 [facility] Last Admin: 11/05/18 06:06 Dose: 40 mg Sodium Hypochlorite (Dakins Solution 0.125%) 20 appl TOP DAILY [facility] Last Admin: 11/05/18 09:16 Dose: Not Given Spironolactone (Aldactone) 25 mg PO DAILY [facility] Last Admin: 11/05/18 08:33 Dose: 25 mg - Labs Labs: 10/29/18 05:40 10/29/18 05:40 Assessment and Plan (1) Acute osteomyelitis Status: Acute (2) PVD (peripheral vascular disease) Status: Acute (3) Type 1 diabetes mellitus with diabetic foot infection Status: Acute (4) Diabetic foot ulcer Status: Acute (5) DVT prophylaxis Status: Acute (6) Fall Status: Acute
--- NOTE | 2018-11-05 19:20 | CP.PCM.PN ---
Subjective - Date & Time of Evaluation Date of Evaluation: 11/03/18 Time of Evaluation: 07:55 Objective - Vital Signs/Intake and Output Vital Signs (last 24 hours): Temp Pulse Resp BP Pulse Ox 98.3 F 66 18 100/65 98 11/05/18 17:00 11/05/18 17:00 11/05/18 17:00 11/05/18 17:00 11/05/18 17:00 - Medications Medications: Current Medications Acetaminophen (Tylenol 325mg Tab) 650 mg PO Q6 PRN PRN Reason: Pain, moderate (4-7) Last Admin: 11/04/18 01:56 Dose: 650 mg Aspirin (Ecotrin) 81 mg PO DAILY [facility] Last Admin: 11/05/18 08:34 Dose: 81 mg Atorvastatin Calcium (Lipitor) 80 mg PO DAILY@2100 [facility] Last Admin: 11/04/18 20:17 Dose: 80 mg Clopidogrel Bisulfate (Plavix) 75 mg PO DAILY [facility] Last Admin: 11/05/18 08:34 Dose: 75 mg Diphenhydramine HCl (Benadryl) 25 mg PO Q6 PRN PRN Reason: Itching / Pruritus Last Admin: 10/17/18 22:26 Dose: 25 mg Furosemide (Lasix) 40 mg PO DAILY [facility] Last Admin: 11/05/18 08:33 Dose: 40 mg Gabapentin (Neurontin) 100 mg PO DAILY [facility] Last Admin: 11/05/18 08:35 Dose: 100 mg Guaifenesin/Dextromethorphan (Robitussin Dm) 10 ml PO Q6 PRN PRN Reason: Cough Last Admin: 09/24/18 00:58 Dose: 10 ml Heparin Sodium (Porcine) (Heparin) 5,000 units SC Q8 [facility]; Protocol Last Admin: 11/05/18 17:09 Dose: 5,000 units Piperacillin Sod/Tazobactam (Sod 3.375 gm/ Sodium Chloride) 100 mls @ 100 mls/hr IVPB Q8H [facility]; Protocol Last Admin: 11/05/18 13:02 Dose: 100 mls/hr Insulin Human Lispro (Humalog) 0 units SC QID [facility]; Protocol Last Admin: 11/05/18 17:10 Dose: 1 unit Isosorbide Mononitrate (Imdur Er) 30 mg PO DAILY [facility] Last Admin: 11/05/18 08:34 Dose: 30 mg Lactic Acid (Lac-Hydrin 12% Lotion (225 G)) 1 applic TOP TID [facility] Last Admin: 11/05/18 17:10 Dose: Not Given Lactobacillus Acidophilus (Bacid Acidophilus) 1 cap PO BID [facility] Last Admin: 11/05/18 17:02 Dose: 1 cap Lactulose (Enulose) 20 gm PO DAILY PRN PRN Reason: Constipation Metoprolol Tartrate (Lopressor) 12.5 mg PO Q12 [facility] Last Admin: 11/05/18 08:33 Dose: 12.5 mg Mirtazapine (Remeron) 7.5 mg PO HS [facility] Last Admin: 11/04/18 21:24 Dose: 7.5 mg Montelukast Sodium (Singulair) 10 mg PO HS [facility] Last Admin: 11/04/18 21:25 Dose: 10 mg Ondansetron HCl (Zofran Inj) 4 mg IVP Q6 PRN PRN Reason: Nausea/Vomiting Last Admin: 10/10/18 09:13 Dose: 4 mg Pantoprazole Sodium (Protonix Ec Tab) 40 mg PO DAILY@0600 [facility] Last Admin: 11/05/18 06:06 Dose: 40 mg Sodium Hypochlorite (Dakins Solution 0.125%) 20 appl TOP DAILY [facility] Last Admin: 11/05/18 09:16 Dose: Not Given Spironolactone (Aldactone) 25 mg PO DAILY [facility] Last Admin: 11/05/18 08:33 Dose: 25 mg - Labs Labs: 10/29/18 05:40 10/29/18 05:40 Assessment and Plan (1) Acute osteomyelitis Status: Acute (2) PVD (peripheral vascular disease) Status: Acute (3) Type 1 diabetes mellitus with diabetic foot infection Status: Acute (4) Diabetic foot ulcer Status: Acute (5) DVT prophylaxis Status: Acute (6) Fall Status: Acute
--- NOTE | 2018-11-05 19:21 | CP.PCM.PN ---
Subjective - Date & Time of Evaluation Date of Evaluation: 11/05/18 Time of Evaluation: 16:05 Objective - Vital Signs/Intake and Output Vital Signs (last 24 hours): Temp Pulse Resp BP Pulse Ox 98.3 F 66 18 100/65 98 11/05/18 17:00 11/05/18 17:00 11/05/18 17:00 11/05/18 17:00 11/05/18 17:00 - Medications Medications: Current Medications Acetaminophen (Tylenol 325mg Tab) 650 mg PO Q6 PRN PRN Reason: Pain, moderate (4-7) Last Admin: 11/04/18 01:56 Dose: 650 mg Aspirin (Ecotrin) 81 mg PO DAILY [facility] Last Admin: 11/05/18 08:34 Dose: 81 mg Atorvastatin Calcium (Lipitor) 80 mg PO DAILY@2100 [facility] Last Admin: 11/04/18 20:17 Dose: 80 mg Clopidogrel Bisulfate (Plavix) 75 mg PO DAILY [facility] Last Admin: 11/05/18 08:34 Dose: 75 mg Diphenhydramine HCl (Benadryl) 25 mg PO Q6 PRN PRN Reason: Itching / Pruritus Last Admin: 10/17/18 22:26 Dose: 25 mg Furosemide (Lasix) 40 mg PO DAILY [facility] Last Admin: 11/05/18 08:33 Dose: 40 mg Gabapentin (Neurontin) 100 mg PO DAILY [facility] Last Admin: 11/05/18 08:35 Dose: 100 mg Guaifenesin/Dextromethorphan (Robitussin Dm) 10 ml PO Q6 PRN PRN Reason: Cough Last Admin: 09/24/18 00:58 Dose: 10 ml Heparin Sodium (Porcine) (Heparin) 5,000 units SC Q8 [facility]; Protocol Last Admin: 11/05/18 17:09 Dose: 5,000 units Piperacillin Sod/Tazobactam (Sod 3.375 gm/ Sodium Chloride) 100 mls @ 100 mls/hr IVPB Q8H [facility]; Protocol Last Admin: 11/05/18 13:02 Dose: 100 mls/hr Insulin Human Lispro (Humalog) 0 units SC QID [facility]; Protocol Last Admin: 11/05/18 17:10 Dose: 1 unit Isosorbide Mononitrate (Imdur Er) 30 mg PO DAILY [facility] Last Admin: 11/05/18 08:34 Dose: 30 mg Lactic Acid (Lac-Hydrin 12% Lotion (225 G)) 1 applic TOP TID [facility] Last Admin: 11/05/18 17:10 Dose: Not Given Lactobacillus Acidophilus (Bacid Acidophilus) 1 cap PO BID [facility] Last Admin: 11/05/18 17:02 Dose: 1 cap Lactulose (Enulose) 20 gm PO DAILY PRN PRN Reason: Constipation Metoprolol Tartrate (Lopressor) 12.5 mg PO Q12 [facility] Last Admin: 11/05/18 08:33 Dose: 12.5 mg Mirtazapine (Remeron) 7.5 mg PO HS [facility] Last Admin: 11/04/18 21:24 Dose: 7.5 mg Montelukast Sodium (Singulair) 10 mg PO HS [facility] Last Admin: 11/04/18 21:25 Dose: 10 mg Ondansetron HCl (Zofran Inj) 4 mg IVP Q6 PRN PRN Reason: Nausea/Vomiting Last Admin: 10/10/18 09:13 Dose: 4 mg Pantoprazole Sodium (Protonix Ec Tab) 40 mg PO DAILY@0600 [facility] Last Admin: 11/05/18 06:06 Dose: 40 mg Sodium Hypochlorite (Dakins Solution 0.125%) 20 appl TOP DAILY [facility] Last Admin: 11/05/18 09:16 Dose: Not Given Spironolactone (Aldactone) 25 mg PO DAILY [facility] Last Admin: 11/05/18 08:33 Dose: 25 mg - Labs Labs: 10/29/18 05:40 10/29/18 05:40 Assessment and Plan (1) Acute osteomyelitis Status: Acute (2) PVD (peripheral vascular disease) Status: Acute (3) Type 1 diabetes mellitus with diabetic foot infection Status: Acute (4) Diabetic foot ulcer Status: Acute (5) DVT prophylaxis Status: Acute (6) Fall Status: Acute
[2018-11-06] MEDS: Piperacillin/Tazobact 3.375 GM in Sodium Chloride 0.9% 100 ML IVPB SCH ×3 (04:18→20:51)
[2018-11-06] MEDS: Pantoprazole 40 mg EC Tab PO SCH (05:35)
[2018-11-06] MEDS: Lactobacillus Acidophilus 500 MU Cap PO SCH ×2 (08:48→18:23)
[2018-11-06] MEDS: Insulin Lispro (humaLOG) 100 Units/ml Inj SC SCH ×4 (08:50→22:13)
[2018-11-06] MEDS ORDERED: Levalbuterol 1.25 MG/3 ML Inhal Soln UD INH ONE (11:02)
[2018-11-06 23:57] VITALS: RESP 20; TEMP 97.6
[2018-11-07] MEDS: Piperacillin/Tazobact 3.375 GM in Sodium Chloride 0.9% 100 ML IVPB SCH ×2 (05:56→12:50)
[2018-11-07] MEDS: Pantoprazole 40 mg EC Tab PO SCH (05:57)
[2018-11-07 08:05] VITALS: BP 110/68; O2SAT 98
--- NOTE | 2018-11-07 08:29 | CP.PCM.PN ---
Subjective - Date & Time of Evaluation Date of Evaluation: 11/07/18 Time of Evaluation: 08:24 - Subjective Subjective: Podiatry Progress Note - Dr. Smith 72 y/o female seen and evaluated at bedside this morning for right plantar heel ulceration. Patient resting comfortably in bed and NAD. Patient states that she doesn't have pain in her foot. Dressing to RLE clean/intact with No strike- through. Multipodus boots are in place. She denies any overnight F/C/N/V/CP/SOB. She denies any other pedal complaint at this time. Objective - Vital Signs/Intake and Output Vital Signs (last 24 hours): Temp Pulse Resp BP Pulse Ox 97.6 F 76 20 110/68 98 11/07/18 08:04 11/07/18 08:04 11/07/18 08:04 11/07/18 08:04 11/07/18 08:04 - Medications Medications: Current Medications Acetaminophen (Tylenol 325mg Tab) 650 mg PO Q6 PRN PRN Reason: Pain, moderate (4-7) Last Admin: 11/06/18 20:49 Dose: 650 mg Aspirin (Ecotrin) 81 mg PO DAILY [facility] Last Admin: 11/06/18 08:38 Dose: 81 mg Atorvastatin Calcium (Lipitor) 80 mg PO DAILY@2100 [facility] Last Admin: 11/06/18 20:51 Dose: 80 mg Clopidogrel Bisulfate (Plavix) 75 mg PO DAILY [facility] Last Admin: 11/06/18 08:37 Dose: 75 mg Diphenhydramine HCl (Benadryl) 25 mg PO Q6 PRN PRN Reason: Itching / Pruritus Last Admin: 10/17/18 22:26 Dose: 25 mg Furosemide (Lasix) 40 mg PO DAILY [facility] Last Admin: 11/06/18 08:37 Dose: 40 mg Gabapentin (Neurontin) 100 mg PO DAILY [facility] Last Admin: 11/06/18 08:37 Dose: 100 mg Guaifenesin/Dextromethorphan (Robitussin Dm) 10 ml PO Q6 PRN PRN Reason: Cough Last Admin: 09/24/18 00:58 Dose: 10 ml Heparin Sodium (Porcine) (Heparin) 5,000 units SC Q8 [facility]; Protocol Last Admin: 11/07/18 01:12 Dose: 5,000 units Piperacillin Sod/Tazobactam (Sod 3.375 gm/ Sodium Chloride) 100 mls @ 100 mls/hr IVPB Q8H [facility]; Protocol Last Admin: 11/07/18 05:56 Dose: 100 mls/hr Insulin Human Lispro (Humalog) 0 units SC QID [facility]; Protocol Last Admin: 11/06/18 22:13 Dose: Not Given Isosorbide Mononitrate (Imdur Er) 30 mg PO DAILY [facility] Last Admin: 11/06/18 08:37 Dose: 30 mg Lactic Acid (Lac-Hydrin 12% Lotion (225 G)) 1 applic TOP TID [facility] Last Admin: 11/06/18 17:37 Dose: Not Given Lactobacillus Acidophilus (Bacid Acidophilus) 1 cap PO BID [facility] Last Admin: 11/06/18 18:23 Dose: 1 cap Lactulose (Enulose) 20 gm PO DAILY PRN PRN Reason: Constipation Metoprolol Tartrate (Lopressor) 12.5 mg PO Q12 [facility] Last Admin: 11/06/18 20:49 Dose: 12.5 mg Mirtazapine (Remeron) 7.5 mg PO HS [facility] Last Admin: 11/06/18 22:13 Dose: 7.5 mg Montelukast Sodium (Singulair) 10 mg PO HS [facility] Last Admin: 11/06/18 21:06 Dose: 10 mg Ondansetron HCl (Zofran Inj) 4 mg IVP Q6 PRN PRN Reason: Nausea/Vomiting Last Admin: 10/10/18 09:13 Dose: 4 mg Pantoprazole Sodium (Protonix Ec Tab) 40 mg PO DAILY@0600 [facility] Last Admin: 11/07/18 05:57 Dose: 40 mg Sodium Hypochlorite (Dakins Solution 0.125%) 20 appl TOP DAILY [facility] Last Admin: 11/06/18 08:49 Dose: Not Given Spironolactone (Aldactone) 25 mg PO DAILY [facility] Last Admin: 11/06/18 08:38 Dose: 25 mg - Labs Labs: 10/29/18 05:40 10/29/18 05:40 - Constitutional Appears: Well, Non-toxic, No Acute Distress - Head Exam Head Exam: ATRAUMATIC, NORMOCEPHALIC - Extremities Exam Additional comments: Right lower extremity exam: Vasc: DP/PT pulses non-palpable. Cap refill < 3 sec to all digits, Temp gradient warm to warm, +1 pitting edema noted to leg extending distally to digits. Neuro: Gross sensation intact, protective sensation absent Derm: Circular ulceration measuring approximately 1.6 cm x 1.3cmX0.1cm noted to R heel with 100% granular wound base, Border are macerated, No malodor, No drainage, no purulence appreciated. No tunneling or tracking appreciated. No probe to bone. No evidence of cellulitis or superficial infection. Healed ulceration noted plantar-medial sub met 1. Mottled hyper-pigmented, dry, desquamate, tented skin to leg. Small crack fresh wound noted submet 2 and 3 covered by dry scab. MSK: Charcot foot deformity noted with rocker bottom foot. No pain on palpation to right heel wound. - Neurological Exam Neurological Exam: Alert, Awake, Oriented x3 - Psychiatric Exam Psychiatric exam: Normal Affect, Normal Mood Assessment and Plan - Assessment and Plan (Free Text) Assessment: 72 y/o female with Right plantar heel ulceration and chronic lower extremity stasis edema Plan: Patient seen and evaluated at the bedside Discussed with attending, Dr. Smith Charts, labs and vitals revied; Afebrile, no leukocytosis R foot x-rays (09/21) show moderate soft tissue swelling, no OM or fracture, diffuse osteopenia MRI (09/24): possible OM of the metatarsals, tarsal bones, hindfoot bones, dis darren tibia and fibular WENDI/PVR - RIGHT - evidence of moderately hemodynamically significant arterial insufficiency in RLE, LEFT - same Vascular on board: patient s/p peripheral angio and [employer] of left SFA with drug coated balloon R wound culture: beta hemolytic group strep B ID on board; recommendations appreciated. Continue abx per ID: PICC placed; continue Zosyn to complete 6 weeks for acute OM Continue local wound care. Dressing change of the right foot using Dakin's cleanse, betadine and DSD to R foot heel wound Patient to continue applying Ammonium lactate to her B/L LE scaling Patient to stay NWB to her RLE Multipodus boots to be worn at all times in bed Podiatry will continue to follow up the patient while in house
[2018-11-07] MEDS: Lactobacillus Acidophilus 500 MU Cap PO SCH (08:44)
[2018-11-07 10:04] VITALS: PULSE 76
[2018-11-07] MEDS: Insulin Lispro (humaLOG) 100 Units/ml Inj SC SCH ×2 (11:29→15:12)
--- NOTE | 2018-11-07 11:52 | CP.PCM.PN ---
Subjective - Date & Time of Evaluation Date of Evaluation: 11/07/18 Time of Evaluation: 08:00 - Subjective Subjective: IV rx in progress afeb nad Objective - Vital Signs/Intake and Output Vital Signs (last 24 hours): Temp Pulse Resp BP Pulse Ox 97.6 F 76 20 110/68 98 11/07/18 09:00 11/07/18 09:00 11/07/18 09:00 11/07/18 09:00 11/07/18 09:00 - Medications Medications: Current Medications Acetaminophen (Tylenol 325mg Tab) 650 mg PO Q6 PRN PRN Reason: Pain, moderate (4-7) Last Admin: 11/06/18 20:49 Dose: 650 mg Aspirin (Ecotrin) 81 mg PO DAILY [facility] Last Admin: 11/07/18 08:45 Dose: 81 mg Atorvastatin Calcium (Lipitor) 80 mg PO DAILY@2100 [facility] Last Admin: 11/06/18 20:51 Dose: 80 mg Clopidogrel Bisulfate (Plavix) 75 mg PO DAILY [facility] Last Admin: 11/07/18 08:44 Dose: 75 mg Diphenhydramine HCl (Benadryl) 25 mg PO Q6 PRN PRN Reason: Itching / Pruritus Last Admin: 10/17/18 22:26 Dose: 25 mg Furosemide (Lasix) 40 mg PO DAILY [facility] Last Admin: 11/07/18 08:44 Dose: 40 mg Gabapentin (Neurontin) 100 mg PO DAILY [facility] Last Admin: 11/07/18 08:44 Dose: 100 mg Guaifenesin/Dextromethorphan (Robitussin Dm) 10 ml PO Q6 PRN PRN Reason: Cough Last Admin: 09/24/18 00:58 Dose: 10 ml Heparin Sodium (Porcine) (Heparin) 5,000 units SC Q8 [facility]; Protocol Last Admin: 11/07/18 08:44 Dose: 5,000 units Piperacillin Sod/Tazobactam (Sod 3.375 gm/ Sodium Chloride) 100 mls @ 100 mls/hr IVPB Q8H [facility]; Protocol Last Admin: 11/07/18 05:56 Dose: 100 mls/hr Insulin Human Lispro (Humalog) 0 units SC QID [facility]; Protocol Last Admin: 11/07/18 11:29 Dose: 1 unit Isosorbide Mononitrate (Imdur Er) 30 mg PO DAILY [facility] Last Admin: 11/07/18 08:45 Dose: 30 mg Lactic Acid (Lac-Hydrin 12% Lotion (225 G)) 1 applic TOP TID [facility] Last Admin: 11/07/18 08:38 Dose: Not Given Lactobacillus Acidophilus (Bacid Acidophilus) 1 cap PO BID [facility] Last Admin: 11/07/18 08:44 Dose: 1 cap Lactulose (Enulose) 20 gm PO DAILY PRN PRN Reason: Constipation Metoprolol Tartrate (Lopressor) 12.5 mg PO Q12 [facility] Last Admin: 11/07/18 08:45 Dose: 12.5 mg Mirtazapine (Remeron) 7.5 mg PO HS [facility] Last Admin: 11/06/18 22:13 Dose: 7.5 mg Montelukast Sodium (Singulair) 10 mg PO HS [facility] Last Admin: 11/06/18 21:06 Dose: 10 mg Pantoprazole Sodium (Protonix Ec Tab) 40 mg PO DAILY@0600 [facility] Last Admin: 11/07/18 05:57 Dose: 40 mg Sodium Hypochlorite (Dakins Solution 0.125%) 20 appl TOP DAILY [facility] Last Admin: 11/07/18 08:37 Dose: Not Given Spironolactone (Aldactone) 25 mg PO DAILY [facility] Last Admin: 11/07/18 08:45 Dose: 25 mg - Labs Labs: 10/29/18 05:40 10/29/18 05:40 - Constitutional Appears: Non-toxic, Chronically Ill - Head Exam Head Exam: NORMOCEPHALIC - Eye Exam Eye Exam: absent: Scleral icterus - ENT Exam ENT Exam: Mucous Membranes Dry - Neck Exam Neck Exam: absent: Lymphadenopathy - Respiratory Exam Respiratory Exam: Decreased Breath Sounds - Cardiovascular Exam Cardiovascular Exam: REGULAR RHYTHM - GI/Abdominal Exam GI & Abdominal Exam: Distended, Soft - Rectal Exam Rectal Exam: Deferred - Exam Exam: NORMAL INSPECTION - Extremities Exam Extremities Exam: Pedal Edema Additional comments: Right lower extremity exam: Vasc: DP/PT pulses non-palpable. Cap refill < 3 sec to all digits, Temp gradient warm to warm, +1 pitting edema noted to leg extending distally to digits. Neuro: Gross sensation intact, protective sensation absent Derm: Circular ulceration measuring approximately 1.6 cm x 1.3cmX0.1cm noted to R heel with 100% granular wound base, Border are macerated, No malodor, No drainage, no purulence appreciated. No tunneling or tracking appreciated. No probe to bone. No evidence of cellulitis or superficial infection. Healed ulce ration noted plantar-medial sub met 1. Mottled hyper-pigmented, dry, desquamate, tented skin to leg. Small crack fresh wound noted submet 2 and 3 covered by dry scab. MSK: Charcot foot deformity noted with rocker bottom foot. No pain on palpation to right heel wound. - Back Exam Back Exam: absent: CVA tenderness (L), CVA tenderness (R) - Neurological Exam Neurological Exam: Alert, Awake - Psychiatric Exam Psychiatric exam: Depressed Assessment and Plan (1) Diabetic foot ulcer Status: Acute (2) Type 1 diabetes mellitus with diabetic foot infection Status: Acute - Assessment and Plan (Free Text) Assessment: will repeat esr/crp has received 5-6 weeks iv rx wound slow to heal cont rx
--- NOTE | 2018-11-07 12:12 | CP.PCM.PCO ---
Assessment/Plan - Assessment/Plan Assessment (Free Text): Pt stable, being seen by PT at bedside, no acute distress noted. Pt completed 6 weeks of IV antibiotics today. Pt to be discharged home later today. Pt cleared by podiatry and Dr. Nam for d/c home. Rx as per med rec. Per CM, pt refusing home care and home PT services. Pt lives with son, Pt's son aware of discharge - Consults Consult Orders: Consultations
--- NOTE | 2018-11-08 08:20 | CP.PCM.PN ---
Subjective - Date & Time of Evaluation Date of Evaluation: 11/06/18 Time of Evaluation: 17:10 Objective - Vital Signs/Intake and Output Vital Signs (last 24 hours): Temp Pulse Resp BP Pulse Ox 97.6 F 76 20 110/68 98 11/07/18 09:00 11/07/18 09:00 11/07/18 09:00 11/07/18 09:00 11/07/18 09:00 - Labs Labs: 10/29/18 05:40 10/29/18 05:40 Assessment and Plan (1) Acute osteomyelitis Status: Acute (2) PVD (peripheral vascular disease) Status: Acute (3) Type 1 diabetes mellitus with diabetic foot infection Status: Acute (4) Diabetic foot ulcer Status: Acute (5) DVT prophylaxis Status: Acute (6) Fall Status: Acute
--- NOTE | 2018-11-08 08:23 | CP.PCM.DIS ---
Provider - Provider Date of Admission: 09/21/18 09:20 Attending physician: Tara Nam MD Consults: 09/21/18 11:45 Physician Consult Stat Comment: Consulting Provider: China Baker Consulting Physician: China Baker Reason for Consult: Diabetic foot ulcer 09/27/18 06:14 Vascular Surgery Routine Comment: Consulting Provider: Rm Jimenez Physician Instructions: Reason For Exam: evaluate b/l blood flow to the LE 09/27/18 09:36 Infectious Disease Consult Routine Comment: Osteomyelitis; Bilateral LE ulcers Consulting Provider: Ryan Mix Consulting Physician: Ryan Mix Reason for Consult: Osteomyelitis; Bilateral LE ulcers Time Spent in preparation of Discharge (in minutes): 25 Diagnosis - Discharge Diagnosis (1) Acute osteomyelitis Status: Acute (2) PVD (peripheral vascular disease) Status: Acute Priority: High (3) Type 1 diabetes mellitus with diabetic foot infection Status: Acute (4) Diabetic foot ulcer Status: Acute (5) DVT prophylaxis Status: Acute (6) Fall Status: Acute Priority: Medium Hospital Course - Lab Results Lab Results: Micro Results 09/27/18 15:05 Urine,Clean Catch Urine Culture - Final No Growth (<1,000 CFU/ML) 09/21/18 10:00 Blood-Venous Blood Culture - Final NO GROWTH AFTER 5 DAYS 09/21/18 10:00 Blood-Venous Gram Stain - Final TEST NOT PERFORMED 09/21/18 11:20 Foot - Right Gram Stain - Final 09/21/18 11:20 Foot - Right Wound Culture - Final Beta Hemolytic Strep Group B Most Recent Lab Values WBC 6.1 K/uL (4.8-10.8) 10/29/18 05:40 RBC 2.95 Mil/uL (3.80-5.20) L 10/29/18 05:40 Hgb 8.6 g/dL (12.0-16.0) L 10/29/18 05:40 Hct 26.2 % (34.0-47.0) L 10/29/18 05:40 MCV 88.8 fl (81.0-99.0) 10/29/18 05:40 MCH 29.1 pg (27.0-31.0) 10/29/18 05:40 MCHC 32.8 g/dL (33.0-37.0) L 10/29/18 05:40 RDW 15.2 % (11.5-14.5) H 10/29/18 05:40 Plt Count 160 K/uL (130-400) 10/29/18 05:40 MPV 8.8 fl (7.2-11.7) 10/29/18 05:40 Neut % (Auto) 49.6 % (50.0-75.0) L 10/29/18 05:40 Lymph % (Auto) 33.3 % (20.0-40.0) 10/29/18 05:40 [place] % (Auto) 7.0 % (0.0-10.0) 10/29/18 05:40 Eos % (Auto) 9.6 % (0.0-4.0) H 10/29/18 05:40 Baso % (Auto) 0.5 % (0.0-2.0) 10/29/18 05:40 Neut # (Auto) 3.0 K/uL (1.8-7.0) 10/29/18 05:40 Lymph # (Auto) 2.0 K/uL (1.0-4.3) 10/29/18 05:40 Hays # (Auto) 0.4 K/uL (0.0-0.8) 10/29/18 05:40 Eos # (Auto) 0.6 K/uL (0.0-0.7) 10/29/18 05:40 Baso # (Auto) 0.0 K/uL (0.0-0.2) 10/29/18 05:40 ESR 78 mm/hr (0-30) H 09/21/18 06:53 pO2 25 mm/Hg (30-55) L 09/21/18 10:09 VBG pH 7.38 (7.32-7.43) 09/21/18 10:09 VBG pCO2 49 mmHg (40-60) 09/21/18 10:09 VBG HCO3 25.8 mmol/L 09/21/18 10:09 VBG Total CO2 30.5 mmol/L (22-28) H 09/21/18 10:09 VBG O2 Sat (Calc) 52.4 % (40-65) 09/21/18 10:09 VBG Base Excess 3.0 mmol/L (0.0-2.0) H 09/21/18 10:09 VBG Potassium 3.5 mmol/L (3.6-5.2) L 09/21/18 10:09 Sodium 141.0 mmol/L (132-148) 09/21/18 10:09 Chloride 110.0 mmol/L (98-107) H 09/21/18 10:09 Glucose 161 mg/dL (65-105) H 09/21/18 10:09 Lactate 1.6 mmol/L (0.7-2.1) 09/21/18 10:09 FiO2 21.0 % 09/21/18 10:09 Sodium 141 mmol/l (132-148) 10/29/18 05:40 Potassium 3.9 MMOL/L (3.6-5.0) 10/29/18 05:40 Chloride 107 mmol/L (98-107) 10/29/18 05:40 Carbon Dioxide 28 mmol/L (22-30) 10/29/18 05:40 Anion Gap 10 (10-20) 10/29/18 05:40 BUN 22 mg/dl (7-17) H 10/29/18 05:40 Creatinine 0.8 mg/dl (0.7-1.2) 10/29/18 05:40 Est GFR ( Amer) > 60 10/29/18 05:40 Est GFR (Non-Af Amer) > 60 10/29/18 05:40 POC Glucose (mg/dL) 219 mg/dL (65-110) H 11/07/18 10:56 Random Glucose 118 mg/dL (65-105) H 10/29/18 05:40 Calcium 8.5 mg/dL (8.4-10.2) 10/29/18 05:40 Phosphorus 3.8 mg/dl (2.5-4.5) 10/18/18 07:50 Magnesium 1.9 MG/DL (1.6-2.3) 10/18/18 07:50 Total Bilirubin 0.5 mg/dl (0.2-1.3) 10/29/18 05:40 AST 17 U/L (14-36) 10/29/18 05:40 ALT 22 U/L (9-52) 10/29/18 05:40 Alkaline Phosphatase 62 U/L (38-126) 10/29/18 05:40 C-Reactive Protein 53.10 mg/L (0.0-9.9) H 09/21/18 08:00 Total Protein 6.5 G/DL (6.3-8.2) 10/29/18 05:40 Albumin 3.0 g/dL (3.5-5.0) L 10/29/18 05:40 Globulin 3.5 gm/dL (2.2-3.9) 10/29/18 05:40 Albumin/Globulin Ratio 0.8 (1.0-2.1) L 10/29/18 05:40 Venous Blood Potassium 3.5 mmol/L (3.6-5.2) L 09/21/18 10:09 Urine Color Straw (YELLOW) 09/27/18 15:05 Urine Clarity Clear (Clear) 09/27/18 15:05 Urine pH 7.0 (5.0-8.0) 09/27/18 15:05 Ur Specific Ke[place] 1.009 (1.003-1.030) 09/27/18 15:05 Urine Protein Negative mg/dL (NEGATIVE) 09/27/18 15:05 Urine Glucose (UA) Neg mg/dL (Normal) 09/27/18 15:05 Urine Ketones Negative mg/dL (NEGATIVE) 09/27/18 15:05 Urine Blood Negative (NEGATIVE) 09/27/18 15:05 Urine Nitrate Negative (NEGATIVE) 09/27/18 15:05 Urine Bilirubin Negative (NEGATIVE) 09/27/18 15:05 Urine Urobilinogen 0.2-1.0 mg/dL (0.2-1.0) 09/27/18 15:05 Ur Leukocyte Esterase Neg Hiram/uL (Negative) 09/27/18 15:05 Urine RBC (Auto) 2 /hpf (0-3) 09/27/18 15:05 Urine Microscopic WBC < 1 /hpf (0-5) 09/27/18 15:05 Ur Squamous Epith Cells 2 /hpf (0-5) 09/27/18 15:05 Urine Bacteria Rare (<OCC) 09/27/18 15:05 Vancomycin Trough 21.2 ug/mL (5.0-10.0) H 10/02/18 08:41 C. difficile Ag & Toxin Negative (NEGATIVE) 10/31/18 21:10 Discharge Exam - Head Exam Head Exam: NORMOCEPHALIC Discharge Plan - Discharge Medications Prescriptions: Metoprolol Tartrate [Lopressor] 12.5 mg PO Q12 #60 tab - Follow Up Plan Condition: FAIR Disposition: HOME/ ROUTINE Instructions: Diabetic Foot Ulcer (DC), Osteomyelitis (DC), Foot Care for D iabetics Additional Instructions: follow up with primary MD and podiatry in 1 week Referrals: Ryan Mix MD [Staff Provider] - Tara Nam MD [Staff Provider] - China Baker DPM [Staff Provider] -
== END 2018-11-07 15:38 | disposition home health service (06) | DRG 271 ==
LOC: H.ER 05:38 → H.ERHOLD 09:20 → H.MEDSURG1 12:11
PROVIDERS: ADMIT Internal Medicine; ATTEND Internal Medicine
PROC: 0H9LXZZ Drainage of Left Lower Leg Skin, External Approach (ICD-10-PCS; 2018-09-23)
PROC: 02HV33Z Insertion of Infusion Device into Superior Vena Cava, Percutaneous Approach (ICD-10-PCS; 2018-09-27)
PROC: B518ZZA Fluoroscopy of Superior Vena Cava, Guidance (ICD-10-PCS; 2018-09-27)
PROC: B548ZZA Ultrasonography of Superior Vena Cava, Guidance (ICD-10-PCS; 2018-09-27)
PROC: 3E04329 Introduction of Other Anti-infective into Central Vein, Percutaneous Approach (ICD-10-PCS; 2018-09-27)
PROC: B40DYZZ Plain Radiography of Aorta and Bilateral Lower Extremity Arteries using Other Contrast (ICD-10-PCS; 2018-09-30)
PROC: 04CK3ZZ Extirpation of Matter from Right Femoral Artery, Percutaneous Approach (ICD-10-PCS; principal; 2018-10-02)
PROC: 047K3D1 Dilation of Right Femoral Artery with Intraluminal Device, using Drug-Coated Balloon, Percutaneous Approach (ICD-10-PCS; 2018-10-02)
PROC: 047L3D1 Dilation of Left Femoral Artery with Intraluminal Device, using Drug-Coated Balloon, Percutaneous Approach (ICD-10-PCS; 2018-10-02)
DX: E10.51 Type 1 diabetes mellitus with diabetic peripheral angiopathy without gangrene (principal); M86.171 Other acute osteomyelitis, right ankle and foot; L97.418 Non-pressure chronic ulcer of right heel and midfoot with other specified severity; Z68.41 Body mass index [BMI] 40.0-44.9, adult; E10.42 Type 1 diabetes mellitus with diabetic polyneuropathy; E10.621 Type 1 diabetes mellitus with foot ulcer; E10.622 Type 1 diabetes mellitus with other skin ulcer; E10.69 Type 1 diabetes mellitus with other specified complication; B95.1 Streptococcus, group B, as the cause of diseases classified elsewhere; E66.01 Morbid (severe) obesity due to excess calories; L89.621 Pressure ulcer of left heel, stage 1; L97.529 Non-pressure chronic ulcer of other part of left foot with unspecified severity; M85.80 Other specified disorders of bone density and structure, unspecified site; R23.8 Other skin changes; I10 Essential (primary) hypertension; I25.10 Atherosclerotic heart disease of native coronary artery without angina pectoris; I25.2 Old myocardial infarction; E78.5 Hyperlipidemia, unspecified; E78.00 Pure hypercholesterolemia, unspecified; J45.909 Unspecified asthma, uncomplicated; Z79.4 Long term (current) use of insulin; Z79.02 Long term (current) use of antithrombotics/antiplatelets; Z79.82 Long term (current) use of aspirin; Z91.81 History of falling; Z87.891 Personal history of nicotine dependence

== ENCOUNTER 2018-12-01 01:57 | Inpatient (IN) | payer MEDICARE, SELFPAY ==
[2018-12-01 01:57] VITALS: BMI 44.3
[2018-12-01] MEDS ORDERED: Albuterol-Ipratrop 3 mg / 0.5 (3 ml) UD INH STA (02:19)
[2018-12-01] MEDS ORDERED: Albuterol-Ipratrop 3 mg / 0.5 (3 ml) UD ONE (02:42)
--- NOTE | 2018-12-01 03:02 | ED PDOC ---
HPI: SOB/CHF/COPD Time Seen by Provider: 12/01/18 02:03 Chief Complaint (Nursing): Shortness Of Breath Chief Complaint (Provider): Shortness Of Breath History Per: Patient History/Exam Limitations: no limitations Onset/Duration Of Symptoms: Days (x4) Current Symptoms Are (Timing): Still Present Additional Complaint(s): 73 y/o female with a PMHx of DM, HTN, CHF, Peripheral Vascular Disease, CAD with Stents and Asthma presents to the ED for evaluation of shortness of breath, onset four days ago. Patient reports of using a nebulizer treatment with no relief. Patient states of being recently discharged from this facility after a lengthy admission on 11/07/2018 . Patient reports of worsening shortness of breath associated with a cough. Otherwise, patient denies any fever. PMD: Dr. Nam Past Medical History Reviewed: Historical Data, Nursing Documentation, Vital Signs Vital Signs: Last Vital Signs Temp 97.5 F L 12/01/18 02:04 Pulse 115 H 12/01/18 02:04 Resp 17 12/01/18 02:36 BP 101/66 12/01/18 02:04 Pulse Ox 100 12/01/18 02:04 - Medical History PMH: Asthma, Diabetes, HTN, Hypercholesterolemia, Hyperlipidemia Denies: Deep Vein Thrombosis, Chronic Kidney Disease - Surgical History Surgical History: No Surg Hx Denies: Pacemaker - Family History Family History: States: Unknown Family Hx - Home Medications Home Medications: Ambulatory Orders Medication Instructions Recorded RX: Alprazolam [Xanax] 0.25 mg PO DAILY 09/21/18 RX: Aspirin [Adult Low Dose 81 mg PO DAILY 09/21/18 Aspirin EC] RX: Atorvastatin [Lipitor] 80 mg PO DAILY 09/21/18 RX: Clopidogrel [Plavix] 75 mg PO DAILY 09/21/18 RX: Furosemide [Lasix] 40 mg PO DAILY 09/21/18 RX: Gabapentin [Neurontin] 100 mg PO DAILY 09/21/18 RX: Insulin Aspart, Recombinant 100 units SC TID 09/21/18 [Novolog] RX: Insulin Glargine,Hum.rec.anlog 100 units SC DAILY 09/21/18 [Basaglar Kwikpen U-100] RX: Ipratropium/Albuterol Sulfate 3 ml INH BID 09/21/18 [Iprat-Albut 0.5-3(2.5) mg/3 ml] RX: Isosorbide Mononitrate 30 mg PO DAILY 09/21/18 [Isosorbide Mononitrate ER] RX: Montelukast Sodium [Singulair] 10 mg PO DAILY 09/21/18 RX: Omeprazole 40 mg PO DAILY 09/21/18 RX: Spironolactone [Aldactone] 25 mg PO DAILY 09/21/18 RX: Ammonium Lactate 12% 1 applic TOP TID bottle 11/07/18 [Lac-Hydrin 12% Lotion (225 g)] RX: Metoprolol Tartrate [Lopressor] 12.5 mg PO Q12 #60 tab 11/07/18 RX: Sodium Hypochlorite 0.125% 20 appl TOP DAILY bottle 11/07/18 [Dakins Solution 0.125%] - Allergies Allergies/Adverse Reactions: Allergies Allergy/AdvReac Type Severity Reaction Status Date / Time No Known Allergies Allergy Verified 09/21/18 05:50 Review of Systems ROS Statement: Except As Marked, All Systems Reviewed And Found Negative Constitutional: Negative for: Fever Respiratory: Positive for: Cough, Shortness of Breath, SOB with Exertion Physical Exam - Reviewed Nursing Documentation Reviewed: Yes Vital Signs Reviewed: Yes - Physical Exam Appears: Positive for: No Acute Distress Head Exam: Positive for: ATRAUMATIC Skin: Positive for: Warm, Dry Eye Exam: Positive for: Normal appearance, EOMI, PERRL Neck: Positive for: Normal, Painless ROM Cardiovascular/Chest: Positive for: Regular Rate, Rhythm. Negative for: Murmur Respiratory: Positive for: Rales (at the bases bilaterally. ) Extremity: Positive for: Pedal Edema (3+ edema of the lower extremities. ), Other (Chronic cellulitis in the lower extremities. [place] changes to the skin of the lower extremity. ) Neurologic/Psych: Positive for: Alert, Oriented. Negative for: Motor/Sensory Deficits - Laboratory Results Result Diagrams: 12/01/18 03:04 12/01/18 03:04 - ECG O2 Sat by Pulse Oximetry: 100 (RA) Pulse Ox Interpretation: Normal Medical Decision Making Medical Decision Making: Time: 218 Impression: 73 y/o female with acute exacerbation of CHF. Plan: -- EKG -- B-Type Natriuretic Peptide -- CMP -- Lact Acid, Plasma -- Magnesium -- Troponin I -- CBC with differentials -- PTT -- Prothrombin time -- Duoneb 3mg/0.5mg 3ml (UD) 3 ml INH -- Lasix 40 mg IV -- Heplock Insertion -- Peak Flow Pre/Post Tx Time: 440 -- CXR demonstrate cardiomegaly with pulmonary congestion. Labs reviewed and demonstrate elevated Pro-BNP. Case discussed with Dr. Nam who states he is alessandro ble to care for the patient today but will be resume care for patient tomorrow. In interim, hospitalist requested to care for patient. Spoke with Dr. Coronado who will admit patient into observation. ____ Scribe Attestation: Documented by Elicia Hyatt, acting as a scribe for Sebastian Hopper MD. Provider Scribe Attestation: All medical record entries made by the Scribe were at my direction and personally dictated by me. I have reviewed the chart and agree that the record accurately reflects my personal performance of the history, physical exam, medical decision making, and the department course for this patient. I have also personally directed, reviewed, and agree with the discharge instructions and disposition. Disposition - Clinical Impression Clinical Impression: Chronic congestive heart failure - Patient ED Disposition Is Patient to be Admitted: Yes Counseled Patient/Family Regarding: Studies Performed, Diagnosis - Disposition Disposition Time: 04:41 Condition: STABLE - Pt Status Changed To: Hospital Disposition Of: Observation
[2018-12-01 03:31] LABS: BASO % 0.5 % (0.0-2.0); EOS # 0.1 K/uL (0.0-0.7); EOS % 1.6 % (0.0-4.0); LYMPH # 0.8 K/uL (1.0-4.3); LYMPH % 9.2 % (20.0-40.0); MEAN CELL VOLUME 92.5 fl (81.0-99.0); MEAN CORPUSCULAR HEMOGLOBIN 29.4 pg (27.0-31.0); MEAN CORPUSCULAR HGB CONC 31.8 g/dL (33.0-37.0); MEAN PLATELET VOLUME 7.9 fl (7.2-11.7); MONO # 0.4 K/uL (0.0-0.8); MONO % 4.8 % (0.0-10.0); NEUT # 6.9 K/uL (1.8-7.0); NEUT % 83.9 % (50.0-75.0); PLATELET COUNT 317 K/uL (130-400); RBC 3.05 Mil/uL (3.80-5.20); RED CELL DISTRIBUTION WIDTH 16.5 % (11.5-14.5); WHITE BLOOD COUNT 8.2 K/uL (4.8-10.8)
[2018-12-01 03:37] LABS: INR 1.1; PROTHROMBIN TIME 12.5 Seconds (9.8-13.1)
[2018-12-01 03:39] LABS: PARTIAL THROMBOPLASTIN TIME 30.2 Seconds (25.6-37.1)
[2018-12-01 03:41] LABS: ALB/GLOB RATIO 0.9 (1.0-2.1); ALBUMIN 3.4 g/dL (3.5-5.0); ALT/SGPT 13 U/L (9-52); AST/SGOT 14 U/L (14-36); BLOOD UREA NITROGEN 24 mg/dl (7-17); CALCIUM 8.9 mg/dL (8.4-10.2); GFR NON-AFRICAN AMERICAN > 60
[2018-12-01 03:52] LABS: B-TYPE NATRIURETIC PEPTIDE 12300 pg/ml (0-900)
[2018-12-01 04:48] LABS: EOSINOPHIL 1 % (0-7); HYPERSEGMENTATION PRESENT; LYMPHOCYTE 8 % (20-50); MONOCYTE 5 % (0-10); NEUTROPHIL 86 % (42-75); PLATELET ESTIMATE NORMAL (NORMAL); TOTAL CELLS COUNTED 100; TOXIC GRANULATION PRESENT
[2018-12-01 04:49] LABS: HYPOCHROMIC MODERATE
[2018-12-01 04:50] LABS: ANISOCYTOSIS SLIGHT
[2018-12-01 04:52] LABS: ROULEAUX FORMATION SLIGHT
--- NOTE | 2018-12-01 05:28 | CP.PCM.HP ---
History of Present Illness - History of Present Illness History of Present Illness: Pt is a 73 y/o female with hx of CAD, DM, Chronic LE stasis edema, Asthma/COPD, HLD, and CHF presents to ED with complaints of worsening dyspnea for the past 3 weeks and a non productive cough. States she she has been short of breath while at rest and has tried nebulizer treatments but they have not provided her relief. She states that she is not mobile given her LE edema, and uses a wheelchair but often remains at home. She normally sleeps with 3-4 pillows but states she has been having to sleep upright, 90 degrees, due to her dyspnea. She denies any worsening of her LE edema but does report pain in her feet. She reports that she is complaint with her medication. Her son is the primary animal care technician is at the bedside currently. She denies chest pain, fever/chills, myalgias, sore throat, n/v,diarrhea, or sick contacts. ROS: +Dysuria PMD: none PMHX: CAD (s/p PCI w/ multiple stents in 03/2018, Dr. Jimenez), PVD (s/p Revas cularization with stents palced by Dr. Alcala in 09/2018) DM, Chronic LE stasis edema, Asthma/COPD, HLD, Anxiety Hospitalizations: Last admitted in 09/2018 for Acute Osteomyletis of of multiple sites in Right and Left lower extremities. PT was discharged after completing a 6 wk course of Zosyn but never followed up with podiatry or PMD in clinic. NKDA Meds: See med recs, reports that she is compliant with all her medication SurgHx: Hysterectomy, Spine surgery, Cholecystectomy FMHx: SOn, Diabetes SOcial: Former smoker, 13 pack years, quit 50 years ago. Denies alcohol use or illicit drug use. Lives with son who is her primary animal care technician. Uses wheelchair. Remains mostly bed bound and apartment-bound as she lives in a 3 floor walk up and uses a wheel chair. Present on Admission - Present on Admission Any Indicators Present on Admission: No History of DVT/PE: No History of Uncontrolled Diabetes: Yes Urinary Catheter: No Decubitus Ulcer Present: No Past Patient History - Past Medical History & Family History Past Medical History?: Yes - Past Social History Smoking Status: Former Smoker - CARDIAC Hx Hypercholesterolemia: Yes Hx Hypertension: Yes Hx Pacemaker: No - PULMONARY Hx Asthma: Yes - NEUROLOGICAL Hx Neurological Disorder: No - HEENT Hx HEENT Problems: Yes Other/Comment: Uses eye glasses. - RENAL Hx Chronic Kidney Disease: No - ENDOCRINE/METABOLIC Hx Endocrine Disorders: Yes Hx Diabetes Mellitus Type 2: Yes - HEMATOLOGICAL/ONCOLOGICAL Hx Cancer: No - INTEGUMENTARY Other/Comment: Scaly bilateral lower legs. - MUSCULOSKELETAL/RHEUMATOLOGICAL Hx Musculoskeletal Disorders: Yes Hx Falls: Yes Hx Unsteady Gait: Yes - GASTROINTESTINAL Hx Gastrointestinal Disorders: No - GENITOURINARY/GYNECOLOGICAL Hx Genitourinary Disorders: No - PSYCHIATRIC Hx Psychophysiologic Disorder: No Hx Substance Use: No - SURGICAL HISTORY Hx Mastectomy: No - ANESTHESIA Hx Anesthesia: No Hx Anesthesia Reactions: No Hx Malignant Hyperthermia: No Meds Allergies/Adverse Reactions: Allergies Allergy/AdvReac Type Severity Reaction Status Date / Time No Known Allergies Allergy Verified 09/21/18 05:50 Physical Exam - Constitutional Appears: Unkempt - Head Exam Head Exam: NORMAL INSPECTION - Eye Exam Eye Exam: Normal appearance - ENT Exam ENT Exam: Mucous Membranes Moist - Respiratory Exam Respiratory Exam: Clear to Auscultation Bilateral, Rales (BL mid lung bases). absent: Accessory Muscle Use (able to speak in full sentences without distress) - Extremities Exam Extremities exam: Positive for: normal capillary refill, pedal edema (BL), pedal pulses present. Negative for: calf tenderness, joint swelling Additional comments: BL LE edema, grossly enlarged and disfigured, with focal areas of erythema and hyperkeratotic plaques,+ foul odor, no weeping skin or ulcers. Nails thickened and yellow. Dorsal pedal and posterior tibialis pulse palpable BL. Capillary refill in tact. Motor in tact. Sensation reduced. Non tender to palpation. - Neurological Exam Neurological exam: Alert, Oriented x3 - Psychiatric Exam Psychiatric exam: Anxious, Normal Affect - Skin Skin Exam: Normal Color Results - Vital Signs Recent Vital Signs: Last Vital Signs Temp 98 F 12/01/18 05:23 Pulse 86 12/01/18 05:23 Resp 17 12/01/18 05:23 BP 129/64 12/01/18 05:23 Pulse Ox 100 12/01/18 05:23 - Labs Result Diagrams: 12/01/18 03:04 12/01/18 03:04 Labs: Laboratory Results - last 24 hr 12/01/18 12/01/18 12/01/18 03:04 03:04 03:04 WBC 8.2 RBC 3.05 L Hgb 9.0 L Hct 28.2 L MCV 92.5 D MCH 29.4 MCHC 31.8 L RDW 16.5 H Plt Count 317 D MPV 7.9 Neut % (Auto) 83.9 H Lymph % (Auto) 9.2 L Gilliam % (Auto) 4.8 Eos % (Auto) 1.6 Baso % (Auto) 0.5 Neut # (Auto) 6.9 Lymph # (Auto) 0.8 L Gilliam # (Auto) 0.4 Eos # (Auto) 0.1 Baso # (Auto) 0.0 Neutrophils % (Manual) 86 H Lymphocytes % (Manual) 8 L Monocytes % (Manual) 5 Eosinophils % (Manual) 1 Hypersegmented Polys Present Toxic Granulation Present Platelet Estimate Normal Hypochromasia (manual) Moderate Anisocytosis (manual) Slight Rouleaux Slight PT INR APTT Sodium 145 Potassium 4.1 Chloride 108 H Carbon Dioxide 24 Anion Gap 17 BUN 24 H Creatinine 0.8 Est GFR ( Amer) > 60 Est GFR (Non-Af Amer) > 60 POC Glucose (mg/dL) Random Glucose 327 H Lactic Acid 1.8 Calcium 8.9 Magnesium 1.8 Total Bilirubin 0.5 AST 14 ALT 13 Alkaline Phosphatase 168 H D Troponin I 0.0280 NT-Pro-B Natriuret Pep 16478 H Total Protein 7.1 Albumin 3.4 L Globulin 3.7 Albumin/Globulin Ratio 0.9 L 12/01/18 12/01/18 03:04 05:05 WBC RBC Hgb Hct MCV MCH MCHC RDW Plt Count MPV Neut % (Auto) Lymph % (Auto) Gilliam % (Auto) Eos % (Auto) Baso % (Auto) Neut # (Auto) Lymph # (Auto) Gilliam # (Auto) Eos # (Auto) Baso # (Auto) Neutrophils % (Manual) Lymphocytes % (Manual) Monocytes % (Manual) Eosinophils % (Manual) Hypersegmented Polys Toxic Granulation Platelet Estimate Hypochromasia (manual) Anisocytosis (manual) Rouleaux PT 12.5 INR 1.1 APTT 30.2 Sodium Potassium Chloride Carbon Dioxide Anion Gap BUN Creatinine Est GFR ( Amer) Est GFR (Non-Af Amer) POC Glucose (mg/dL) 338 H Random Glucose Lactic Acid Calcium Magnesium Total Bilirubin AST ALT Alkaline Phosphatase Troponin I NT-Pro-B Natriuret Pep Total Protein Albumin Globulin Albumin/Globulin Ratio Assessment & Plan - Assessment and Plan (Free Text) Assessment: Pt is a 73 y/o female with hx of CAD (s/p PCI w/ multiple stents), PVD (s/p Revascularization with stents by Dr. Alcala in 09/2018) DM, Chronic LE stasis edema, Asthma/COPD, HLD, and CHF presents to ED with complaints of worsening dyspnea for the past 3 weeks and a non productive cough admitted for CHF exacerbation. ED Course: -Vitals: BP 129/64, HR 86, RR 17, O2 sat 100% on 2 L Nasal cannula -EKG: Sinus tachycardia, no ischemic changes -Troponin 0.0280 -CBC 8.2>9/28.2<317 -CMP 145/4.1/108/24/0.8, AST/ALT 14/13 -ProBNP 91780 -Cxray- report pending, R. heart border obscured by potential consolidation -S/P Lasix 49mg IV stat -S/P Duonebulizer stat #CHF exacerbation -Diuresis, Lasix 40mg IV BID -Monitor weights daily -Monitor I/O's, maintain urine output> 1000-1500cc/day -Fluid restrictions, <2g salt diet -F/U electrolytes, Mg, Phos -Telemetry monitoring #Cough -Cxray showing possible R consolidation, f/u procalcitonin -Most likely viral syndrome -- afebrile, no leukocytosis and insidious onset -May also be a "cardiac cough" #Stasis Dermatitis -Reviewed last admission, pt completed 6 weeks of Zosyn for treatment of Osteomyelitis but never followed up in Podiatry clinic as instructed -Podiatry consulted to assess Stasis Dermatitis and resolution of osteomyelitis -Ammonium Lactate Topical TID -F/U ESR #Dysuria -UA and Ucx sent DM -C/W home basal insulin dose, 8mg Glargine -ISS with accucheck ACHS -Hypoglycemic protocol -Last Hemoglobin A1c 12 in 12/2017 HTN -resumed home antihypertensives -Monitor BP Mobility -Pt is essentially wheelchair bound due to LE stasis -Physical therapy evaluation ordered DVT ppx -Lovenox 40mg SQ daily Full Code Discussed case with Dr. Coronado
[2018-12-01] MEDS ORDERED: Dextrose 50% SYRINGE Inj (50 ml) IV PRN (05:57)
[2018-12-01] MEDS ORDERED: Glucagon Recombinant 1 mg Inj IM PRN (05:57)
[2018-12-01] MEDS ORDERED: Albuterol-Ipratrop 3 mg / 0.5 (3 ml) UD INH SCH (08:00)
[2018-12-01] MEDS: Insulin Regular 100 units/ml SC SCH ×4 (08:37→23:01)
[2018-12-01] MEDS ORDERED: Piperacillin/Tazobact 3.375 GM in Sodium Chloride 0.9% 100 ML IVPB SCH (09:00)
[2018-12-01] MEDS ORDERED: Insulin Detemir 100 Units/ml Inj SC SCH (09:00)
[2018-12-01] MEDS ORDERED: Patient's Own Med (Atorvastatin [Lipitor] 80 MG) PO SCH (09:00)
[2018-12-01] MEDS ORDERED: INSULIN GLARGINE HUM REC ANLOG 100 UNIT SC SCH (09:00)
[2018-12-01] MEDS: Albuterol-Ipratrop 3 mg / 0.5 (3 ml) UD INH SCH ×3 (09:31→19:29)
[2018-12-01] MEDS: Enoxaparin 40 mg Syringe SC SCH (10:11)
[2018-12-01] MEDS: Pantoprazole 40 mg EC Tab PO SCH ×2 (10:13→10:27)
[2018-12-01] MEDS: Insulin Detemir 100 Units/ml Inj SC SCH (10:15)
--- NOTE | 2018-12-01 11:03 | RAD ---
Date of service: 12/01/2018 HISTORY: chest pain COMPARISON: Chest radiograph dated 09/26/2018 FINDINGS: LUNGS: Stable chronic prominence of the bilateral interstitial markings. Left midlung atelectasis/scarring. PLEURA: No significant pleural effusion identified, no pneumothorax apparent. CARDIOVASCULAR: Aortic atherosclerotic calcifications. Cardiomediastinal silhouette stably enlarged. OSSEOUS STRUCTURES: Unchanged. VISUALIZED UPPER ABDOMEN: Normal. OTHER FINDINGS: None. IMPRESSION: No active disease.
--- NOTE | 2018-12-01 16:32 | CP.PCM.PCO ---
Addendum Addendum: 12/01/18 16:32 S:Progress note: Patient reports she is having non-radiating back pain. O: Patient is dyspneic when speaking. Lung exam: Saturating 100% on 3.5L Crackles noted bilaterally lower lung rebollar. Heart: S1 and S2 noted. Extremities: Noted bilateral lower extremity pitting edema with chronic vascular skin changes. A+P - Lidoderm patch for lower back pain - Lasix 20mg IVP stat - Elevation of bilateral lower extremities with pillows.
[2018-12-01] MEDS: Lidocaine 5% Patch TD SCH (16:43)
--- NOTE | 2018-12-01 23:56 | CARD ---
APPROVED REPORT Date of service: 12/01/2018 EKG Measurement Heart [id number] <Conclusion> Sinus tachycardia Possible Left atrial enlargement Left axis deviation Nonspecific T wave abnormality Abnormal ECG
[2018-12-02] MEDS: Albuterol-Ipratrop 3 mg / 0.5 (3 ml) UD INH SCH ×4 (01:00→19:13)
[2018-12-02] MEDS: Pantoprazole 40 mg EC Tab PO SCH (06:35)
[2018-12-02 07:14] LABS: HEMOGLOBIN 8.5 g/dL (12.0-16.0); MEAN CELL VOLUME 90.2 fl (81.0-99.0); MEAN CORPUSCULAR HEMOGLOBIN 29.3 pg (27.0-31.0); MEAN CORPUSCULAR HGB CONC 32.5 g/dL (33.0-37.0); RBC 2.89 Mil/uL (3.80-5.20); RED CELL DISTRIBUTION WIDTH 16.4 % (11.5-14.5); WHITE BLOOD COUNT 6.8 K/uL (4.8-10.8)
[2018-12-02 07:26] LABS: BLOOD UREA NITROGEN 23 mg/dl (7-17); GFR NON-AFRICAN AMERICAN > 60
[2018-12-02] MEDS: Insulin Regular 100 units/ml SC SCH ×4 (08:54→21:55)
[2018-12-02] MEDS: Insulin Detemir 100 Units/ml Inj SC SCH (09:01)
[2018-12-02] MEDS: Enoxaparin 40 mg Syringe SC SCH (09:02)
[2018-12-02] MEDS: Lidocaine 5% Patch TD SCH (09:03)
[2018-12-02] MEDS ORDERED: Metoprolol 1 mg/ml Inj IVP ONE (09:38)
--- NOTE | 2018-12-02 14:25 | CP.PCM.CON ---
History of Present Illness - History of Present Illness History of Present Illness: 73 y/o female presents to ED with complaints of worsening dyspnea for the past 3 weeks and a non productive cough. Patient also c/o noinhealing ulcers of feet which have been treated recently in house with wound care and IV antibiotics - treated empirically for chronic OM on last admission PMHX: CAD (s/p PCI w/ multiple stents in 03/2018, Dr. Jimenez), PVD (s/p Revascularization with stents palced by Dr. Alcala in 09/2018) DM, Chronic LE stasis edema, Asthma/COPD, HLD, Anxiety NKDA SurgHx: Hysterectomy, Spine surgery, Cholecystectomy FMHx: SOn, Diabetes SOcial: Former smoker, Review of Systems - Review of Systems All systems: reviewed and no additional remarkable complaints except - Constitutional Constitutional: As Per HPI - EENT Eyes: absent: As Per HPI, Blind Spots, Blurred Vision, Change in Vision, Decreased Night Vision, Diplopia, Discharge, Dry Eye, Exophthalmos, Floaters, Irritation, Itchy Eyes, Loss of Peripheral Vision, Pain, Photophobia, Requires Corrective Lenses, Sees Flashes, Spots in Vision, Tunnel Vision, Other Visual Disturbances, Loss of Vision, Other Ears: absent: As Per HPI, Decreased Hearing, Ear Discharge, Ear Pain, Tinnitus, Abnormal Hearing, Disequilibrium, Dizziness, Other Nose/Mouth/Throat: absent: As Per HPI, Epistaxis, Nasal Congestion, Nasal Discharge, Nasal Obstruction, Nasal Trauma, Nose Pain, Post Nasal Drip, Sinus Pain, Sinus Pressure, Bleeding Gums, Change in Voice, Dental Pain, Dry Mouth, Dysphagia, Halitosis, Hoarsness, Lip Swelling, Mouth Lesions, Mouth Pain, Odynophagia, Sore Throat, Throat Swelling, Tongue Swelling, Facial Pain, Neck Pain, Neck Mass, Other - Breasts Breasts: absent: As Per HPI, Change in Shape, Mass, Pain, Nipple Discharge, Nipple Inversion, Skin Changes, Swelling, Other - Cardiovascular Cardiovascular: As Per HPI - Respiratory Respiratory: absent: As Per HPI, Cough, Dyspnea, Hemoptysis, Dyspnea on Exertion, Wheezing, Snoring, Stridor, Pain on Inspiration, Chest Congestion, Excessive Mucous Production, Change in Mucous Color, Pain with Coughing, Other - Gastrointestinal Gastrointestinal: absent: As Per HPI, Abdominal Pain, Belching, Bloating, Change in Bowel Habits, Change in Stool Character, Coffee Ground Emesis, Constipation, Cramping, Diarrhea, Dyspepsia, Dysphagia, Early Satiety, Excessive Flatus, Fecal Incontinence, Heartburn, Hematemesis, Hematochezia, Loose Stools, Melena, Nause a, Odynophagia, Temesmus, Vomiting, Other - Genitourinary Genitourinary: absent: As Per HPI, Change in Urinary Stream, Difficulty Urinating, Dysuria, Flank Pain, Hematuria, Pyuria, Nocturia, Urinary Incontinence, Urinary Frequency, Urinary Hesitance, Urinary Urgency, Voiding Freq/Small Amts, Freq UTI, Hx Renal/Bladder Calculi, Hx /Renal Surgery, Bladder Distension, Other - Reproductive: Female Reproductive:Female: absent: As Per HPI, Amenorrhea, Amenorrhea/ Control, Currently Menstual, Cycle <21 Days, Cycle >35 Days, Cycle Variable, Menses 1-7 Days, Menses >/= 8 Days, Menses Variable, Cycle > 4 Weeks Between, No Menses for 6 Months, Heavy Menses, Light Menses, Normal Menses, Spotting Between Cycles, S/P Hysterectomy, Menopausal, Post Menopausal, Premenarche, Abnormal Vaginal Bleeding, Dysmenorrhea, Dyspareunia, Genital Lesions, Genital Pruritis, Pelvic Pain, Prolapse Symptoms, Sexual Dysfunction, Vaginal Discharge, Vaginal Dryness, Vaginal Odor, Vaginal Pruritis, Other - Menstruation Menstruation: absent: As Per HPI, Amenorrhea, Amenorrhea/ Control, Curre ntly Menstual, Cycle <21 Days, Cycle >35 Days, Cycle Variable, Menses 1-7 Days, Menses >/= 8 Days, Menses Variable, Cycle > 4 Weeks Between, No Menses for 6 Months, Heavy Menses, Light Menses, Normal Menses, Spotting Between Cycles, S/P Hysterectomy, Menopausal, Post Menopausal, Premenarche, Abnormal Vaginal Bleeding, Dysmenorrhea, Other - Musculoskeletal Musculoskeletal: As Per HPI - Integumentary Integumentary: As Per HPI, Skin Pain, Wounds - Neurological Neurological: As Per HPI - Psychiatric Psychiatric: absent: As Per HPI, Abnormal Sleep Pattern, Anhedonia, Anxiety, Auditory Hallucinations, Behavioral Changes, Change in Appetite, Change in Libido, Confusion, Depression, Difficulty Concentrating, Hallucinations, Homicidal Ideation, Hopelessness, Irritability, Memory Loss, Mood Swings, Panic Attacks, Paranoia, Suicidal Ideation, Visual Hallucinations, Tactile Hallucinations, Other - Endocrine Endocrine: absent: As Per HPI, Change in Body Appearance, Change in Libido, Cold Intolorance, Deepening of Voice, Excessive Sweating, Fatigue, Flushing, Heat Intolorance, Increase in Ring/Shoe/Hat Size, Palpitations, Polydipsia, Polyphagia, Polyuria, Other - Hematologic/Lymphatic Hematologic: absent: As Per HPI, Easy Bleeding, Easy Bruising, Lymphadenopathy, Other Past Patient History - Past Medical History & Family History Past Medical History?: Yes - Past Social History Smoking Status: Former Smoker - CARDIAC Hx Hypercholesterolemia: Yes Hx Hypertension: Yes Hx Pacemaker: No - PULMONARY Hx Asthma: Yes - NEUROLOGICAL Hx Neurological Disorder: No - HEENT Hx HEENT Problems: Yes Other/Comment: Uses eye glasses. - RENAL Hx Chronic Kidney Disease: No - ENDOCRINE/METABOLIC Hx Endocrine Disorders: Yes Hx Diabetes Mellitus Type 2: Yes - HEMATOLOGICAL/ONCOLOGICAL Hx Blood Disorders: No Hx AIDS: No Hx Cancer: No Hx Human Immunodeficiency Virus (HIV): No - INTEGUMENTARY Hx Dermatological Problems: Yes Other/Comment: Scaly bilateral lower legs. - MUSCULOSKELETAL/RHEUMATOLOGICAL Hx Musculoskeletal Disorders: Yes Hx Falls: Yes Hx Unsteady Gait: Yes - GASTROINTESTINAL Hx Gastrointestinal Disorders: No - GENITOURINARY/GYNECOLOGICAL Hx Genitourinary Disorders: No - PSYCHIATRIC Hx Psychophysiologic Disorder: No Hx Substance Use: No - SURGICAL HISTORY Hx Surgeries: No Hx Mastectomy: No - ANESTHESIA Hx Anesthesia: Yes Hx Anesthesia Reactions: No Hx Malignant Hyperthermia: No Has any member of the family had a problem w/ anesthesia?: No Meds Allergies/Adverse Reactions: Allergies Allergy/AdvReac Type Severity Reaction Status Date / Time No Known Allergies Allergy Verified 09/21/18 05:50 - Medications Medications: Current Medications Acetaminophen (Tylenol 325mg Tab) 650 mg PO Q6 PRN PRN Reason: Pain, Mild (1-3) Albuterol/Ipratropium (Duoneb 3 Mg/0.5 Mg (3 Ml) Ud) 3 ml INH RQ6 [facility] Last Admin: 12/02/18 13:15 Dose: 3 ml Alprazolam (Xanax) 0.25 mg PO DAILY [facility] Stop: 12/08/18 09:01 Last Admin: 12/02/18 09:07 Dose: Not Given Aspirin (Ecotrin) 81 mg PO DAILY [facility] Last Admin: 12/02/18 09:00 Dose: 81 mg Atorvastatin Calcium (Lipitor) 80 mg PO DAILY [facility] Last Admin: 12/02/18 09:02 Dose: 80 mg Clopidogrel Bisulfate (Plavix) 75 mg PO DAILY [facility] Last Admin: 12/02/18 09:03 Dose: 75 mg Dextrose (Dextrose 50% Inj) 0 ml IV STAT PRN; Protocol PRN Reason: Hypoglycemia Protocol Dextrose (Glutose 15) 0 gm PO ONCE PRN; Protocol PRN Reason: Hypoglycemia Protocol Enoxaparin Sodium (Lovenox) 100 mg SC Q12 [facility]; Protocol Furosemide (Lasix) 40 mg IVP Q12 [facility] Last Admin: 12/02/18 08:49 Dose: 40 mg Gabapentin (Neurontin) 100 mg PO DAILY [facility] Last Admin: 12/02/18 09:02 Dose: 100 mg Glucagon (Glucagen Diagnostic Kit) 0 mg IM STAT PRN; Protocol PRN Reason: Hypoglycemia Protocol Insulin Detemir (Levemir) 8 units SC DAILY [facility] Last Admin: 12/02/18 09:01 Dose: 8 units Insulin Human Regular (Humulin R) 0 units SC [facility]; Protocol Last Admin: 12/02/18 12:27 Dose: 2 units Isosorbide Mononitrate (Imdur Er) 30 mg PO DAILY [facility] Last Admin: 12/02/18 08:51 Dose: 30 mg Lactic Acid (Lac-Hydrin 12% Lotion (225 G)) 1 applic TOP TID [facility] Last Admin: 12/02/18 12:27 Dose: Not Given Lidocaine (Lidoderm) 1 ea TD DAILY [facility] Last Admin: 12/02/18 09:03 Dose: 1 ea Metoprolol Tartrate (Lopressor) 100 mg PO Q12 [facility] Last Admin: 12/02/18 10:10 Dose: 100 mg Montelukast Sodium (Singulair) 10 mg PO DAILY [facility] Last Admin: 12/02/18 09:05 Dose: 10 mg Pantoprazole Sodium (Protonix Ec Tab) 40 mg PO DAILY@0630 [facility] Last Admin: 12/02/18 06:35 Dose: 40 mg Spironolactone (Aldactone) 25 mg PO DAILY [facility] Last Admin: 12/02/18 09:00 Dose: 25 mg Physical Exam - Constitutional Appears: No Acute Distress, Chronically Ill - Head Exam Head Exam: ATRAUMATIC, NORMOCEPHALIC - Eye Exam Eye Exam: EOMI, PERRL. absent: Scleral icterus - ENT Exam ENT Exam: Mucous Membranes Dry, Normal External Ear Exam - Neck Exam Neck exam: Negative for: Lymphadenopathy - Respiratory Exam Respiratory Exam: Decreased Breath Sounds, Prolonged Expiratory Phase, Rales, Rhonchi, Wheezes - Cardiovascular Exam Cardiovascular Exam: REGULAR RHYTHM, +S1, +S2 - GI/Abdominal Exam GI & Abdominal Exam: Diminished Bowel Sounds, Distended, Soft. absent: Tenderness - Rectal Exam Rectal Exam: Deferred - Exam Exam: NORMAL INSPECTION - Extremities Exam Extremities exam: Positive for: pedal edema, tenderness, pedal pulses present. Negative for: calf tenderness - Back Exam Back exam: absent: CVA tenderness (L), CVA tenderness (R) - Neurological Exam Neurological exam: Alert, CN II-XII Intact, Motor Sensory Deficit, Oriented x3 - Psychiatric Exam Psychiatric exam: Depressed - Skin Skin Exam: Dry, Erythema Results - Vital Signs Recent Vital Signs: Last Vital Signs Temp 98 F 12/02/18 12:54 Pulse 85 12/02/18 12:54 Resp 20 12/02/18 12:54 BP 105/67 12/02/18 12:54 Pulse Ox 98 12/02/18 12:54 - Labs Result Diagrams: 12/02/18 07:06 12/02/18 07:06 Labs: Laboratory Results - last 24 hr 12/01/18 12/01/18 12/01/18 16:24 17:48 18:30 WBC RBC Hgb Hct MCV MCH MCHC RDW Plt Count ESR Sodium Potassium Chloride Carbon Dioxide Anion Gap BUN Creatinine Est GFR ( Amer) Est GFR (Non-Af Amer) POC Glucose (mg/dL) 65 67 Random Glucose Calcium Phosphorus 3.8 Magnesium 1.7 Troponin I 12/01/18 12/01/18 12/02/18 18:30 22:37 06:32 WBC RBC Hgb Hct MCV MCH MCHC RDW Plt Count ESR 71 H Sodium Potassium Chloride Carbon Dioxide Anion Gap BUN Creatinine Est GFR ( Amer) Est GFR (Non-Af Amer) POC Glucose (mg/dL) 161 H 180 H Random Glucose Calcium Phosphorus Magnesium Troponin I 12/02/18 12/02/1819 07:06 07:06 11:10 WBC 6.8 RBC 2.89 L Hgb 8.5 L Hct 26.1 L MCV 90.2 D MCH 29.3 MCHC 32.5 L RDW 16.4 H Plt Count 285 ESR Sodium 141 Potassium 4.5 Chloride 104 Carbon Dioxide 25 Anion Gap 17 BUN 23 H Creatinine 0.8 Est GFR ( Amer) > 60 Est GFR (Non-Af Amer) > 60 POC Glucose (mg/dL) Random Glucose 181 H Calcium 9.0 Phosphorus Magnesium Troponin I 0.8560 H* Assessment & Plan (1) COPD (chronic obstructive pulmonary disease) Status: Acute (2) Chronic congestive heart failure Status: Acute (3) CAD (coronary artery disease) Status: Acute (4) Diabetic foot ulcer Status: Acute (5) Cellulitis and abscess of foot Status: Acute (6) Acute coronary insufficiency syndrome Status: Acute - Assessment and Plan (Free Text) Assessment: cultures sent IV antibiotics on board Dr Jimenez for cardio eval
[2018-12-02] MEDS: Piperacillin/Tazobact 3.375 GM in Sodium Chloride 0.9% 100 ML IVPB SCH ×2 (15:44→21:53)
--- NOTE | 2018-12-02 17:49 | CP.PCM.CON ---
History of Present Illness - History of Present Illness History of Present Illness: Consultation for evaluation of CHF exacerbation and afib HPI: 73-year-old female who has been followed by me over the course of last 9months underwent a high risk [place] assisted PCI of left main multivessel disease as she was turned down by CT surgery secondary to severe peripheral vascular occlusive disease severe bilateral lower extremity arterial ulcers and questionable ostial mellitus. She was discharged home last month and is now presenting with complains of worsening bilateral lower extremity swelling and shortness of breath. At baseline her activity was severely limited secondary to combination of deconditioning and bilateral peripheral vascular disease and nonhealing ulcers. She was subsequently discharged home after revascularization of her lower extremities which was recently done about a month ago at [facility]. Her main complaint on this hospitalization is swelling along with severe shortness of breath which she claims to have developed over the course of last 1 week. Review of Systems - Review of Systems Systems not reviewed;Unavailable: Acuity of Condition - Constitutional Constitutional: As Per HPI - EENT Eyes: As Per HPI Ears: As Per HPI Nose/Mouth/Throat: As Per HPI - Breasts Breasts: As Per HPI - Cardiovascular Cardiovascular: As Per HPI - Respiratory Respiratory: As Per HPI - Gastrointestinal Gastrointestinal: As Per HPI - Genitourinary Genitourinary: As Per HPI - Reproductive: Female Reproductive:Female: As Per HPI - Menstruation Menstruation: As Per HPI - Musculoskeletal Musculoskeletal: As Per HPI - Integumentary Integumentary: As Per HPI - Neurological Neurological: As Per HPI - Psychiatric Psychiatric: As Per HPI - Endocrine Endocrine: As Per HPI - Hematologic/Lymphatic Hematologic: As Per HPI Past Patient History - Past Medical History & Family History Past Medical History?: Yes - Past Social History Smoking Status: Former Smoker - CARDIAC Hx Hypercholesterolemia: Yes Hx Hypertension: Yes Hx Pacemaker: No - PULMONARY Hx Asthma: Yes - NEUROLOGICAL Hx Neurological Disorder: No - HEENT Hx HEENT Problems: Yes Other/Comment: Uses eye glasses. - RENAL Hx Chronic Kidney Disease: No - ENDOCRINE/METABOLIC Hx Endocrine Disorders: Yes Hx Diabetes Mellitus Type 2: Yes - HEMATOLOGICAL/ONCOLOGICAL Hx Blood Disorders: No Hx AIDS: No Hx Cancer: No Hx Human Immunodeficiency Virus (HIV): No - INTEGUMENTARY Hx Dermatological Problems: Yes Other/Comment: Scaly bilateral lower legs. - MUSCULOSKELETAL/RHEUMATOLOGICAL Hx Musculoskeletal Disorders: Yes Hx Falls: Yes Hx Unsteady Gait: Yes - GASTROINTESTINAL Hx Gastrointestinal Disorders: No - GENITOURINARY/GYNECOLOGICAL Hx Genitourinary Disorders: No - PSYCHIATRIC Hx Psychophysiologic Disorder: No Hx Substance Use: No - SURGICAL HISTORY Hx Surgeries: No Hx Mastectomy: No - ANESTHESIA Hx Anesthesia: Yes Hx Anesthesia Reactions: No Hx Malignant Hyperthermia: No Has any member of the family had a problem w/ anesthesia?: No Meds Allergies/Adverse Reactions: Allergies Allergy/AdvReac Type Severity Reaction Status Date / Time No Known Allergies Allergy Verified 09/21/18 05:50 - Medications Medications: Current Medications Acetaminophen (Tylenol 325mg Tab) 650 mg PO Q6 PRN PRN Reason: Pain, Mild (1-3) Albuterol/Ipratropium (Duoneb 3 Mg/0.5 Mg (3 Ml) Ud) 3 ml INH RQ6 [facility] Last Admin: 12/02/18 13:15 Dose: 3 ml Alprazolam (Xanax) 0.25 mg PO DAILY [facility] Stop: 12/08/18 09:01 Last Admin: 12/02/18 09:07 Dose: Not Given Aspirin (Ecotrin) 81 mg PO DAILY [facility] Last Admin: 12/02/18 09:00 Dose: 81 mg Atorvastatin Calcium (Lipitor) 80 mg PO DAILY [facility] Last Admin: 12/02/18 09:02 Dose: 80 mg Clopidogrel Bisulfate (Plavix) 75 mg PO DAILY [facility] Last Admin: 12/02/18 09:03 Dose: 75 mg Dextrose (Dextrose 50% Inj) 0 ml IV STAT PRN; Protocol PRN Reason: Hypoglycemia Protocol Dextrose (Glutose 15) 0 gm PO ONCE PRN; Protocol PRN Reason: Hypoglycemia Protocol Enoxaparin Sodium (Lovenox) 100 mg SC Q12 [facility]; Protocol Furosemide (Lasix) 40 mg IVP Q12 [facility] Last Admin: 12/02/18 08:49 Dose: 40 mg Gabapentin (Neurontin) 100 mg PO DAILY [facility] Last Admin: 12/02/18 09:02 Dose: 100 mg Glucagon (Glucagen Diagnostic Kit) 0 mg IM STAT PRN; Protocol PRN Reason: Hypoglycemia Protocol Piperacillin Sod/Tazobactam (Sod 3.375 gm/ Sodium Chloride) 100 mls @ 100 mls/hr IVPB Q8H [facility]; Protocol Last Admin: 12/02/18 15:44 Dose: 100 mls/hr Vancomycin HCl 1 gm/ Sodium (Chloride) 250 mls @ 166.667 mls/hr IVPB Q24H [facility]; Protocol Last Admin: 12/02/18 15:54 Dose: 166.667 mls/hr Insulin Detemir (Levemir) 8 units SC DAILY [facility] Last Admin: 12/02/18 09:01 Dose: 8 units Insulin Human Regular (Humulin R) 0 units SC ACHS [facility]; Protocol Last Admin: 12/02/18 17:00 Dose: Not Given Isosorbide Mononitrate (Imdur Er) 30 mg PO DAILY [facility] Last Admin: 12/02/18 08:51 Dose: 30 mg Lactic Acid (Lac-Hydrin 12% Lotion (225 G)) 1 applic TOP TID [facility] Last Admin: 12/02/18 17:01 Dose: Not Given Lidocaine (Lidoderm) 1 ea TD DAILY [facility] Last Admin: 12/02/18 09:03 Dose: 1 ea Metoprolol Tartrate (Lopressor) 100 mg PO Q12 [facility] Last Admin: 12/02/18 10:10 Dose: 100 mg Montelukast Sodium (Singulair) 10 mg PO DAILY [facility] Last Admin: 12/02/18 09:05 Dose: 10 mg Pantoprazole Sodium (Protonix Ec Tab) 40 mg PO DAILY@0630 [facility] Last Admin: 12/02/18 06:35 Dose: 40 mg Spironolactone (Aldactone) 25 mg PO DAILY [facility] Last Admin: 12/02/18 09:00 Dose: 25 mg Physical Exam - Constitutional Appears: Well - Head Exam Head Exam: ATRAUMATIC, NORMAL INSPECTION, NORMOCEPHALIC - Eye Exam Eye Exam: EOMI, Normal appearance, PERRL Pupil Exam: NORMAL ACCOMODATION, PERRL - ENT Exam ENT Exam: Mucous Membranes Moist, Normal Exam - Neck Exam Neck exam: Positive for: Normal Inspection - Respiratory Exam Respiratory Exam: Clear to Auscultation Bilateral, Rales, NORMAL BREATHING PATTERN - Cardiovascular Exam Cardiovascular Exam: Tachycardia, Gallop, Irregular Rhythm, +S1, +S2, Systolic Murmur - GI/Abdominal Exam GI & Abdominal Exam: Normal Bowel Sounds, Soft. absent: Tenderness - Extremities Exam Additional comments: +ve B/l LE edema - Back Exam Back exam: NORMAL INSPECTION - Neurological Exam Neurological exam: Alert, CN II-XII Intact, Normal Gait, Oriented x3, Reflexes Normal - Psychiatric Exam Psychiatric exam: Normal Affect, Normal Mood - Skin Skin Exam: Dry, Intact, Normal Color, Warm Results - Vital Signs Recent Vital Signs: Last Vital Signs Temp 97.3 F L 12/02/18 16:52 Pulse 64 12/02/18 16:52 Resp 18 12/02/18 16:52 BP 105/60 12/02/18 16:52 Pulse Ox 100 12/02/18 16:52 - Labs Result Diagrams: 12/02/18 07:06 12/02/18 07:06 Labs: Laboratory Results - last 24 hr 12/01/18 12/01/18 12/01/18 17:48 18:30 18:30 WBC RBC Hgb Hct MCV MCH MCHC RDW Plt Count ESR 71 H Sodium Potassium Chloride Carbon Dioxide Anion Gap BUN Creatinine Est GFR ( Amer) Est GFR (Non-Af Amer) POC Glucose (mg/dL) 67 Random Glucose Calcium Phosphorus 3.8 Magnesium 1.7 Troponin I 12/01/18 12/02/18 12/02/18 22:37 06:32 07:06 WBC 6.8 RBC 2.89 L Hgb 8.5 L Hct 26.1 L MCV 90.2 D MCH 29.3 MCHC 32.5 L RDW 16.4 H Plt Count 285 ESR Sodium Potassium Chloride Carbon Dioxide Anion Gap BUN Creatinine Est GFR ( Amer) Est GFR (Non-Af Amer) POC Glucose (mg/dL) 161 H 180 H Random Glucose Calcium Phosphorus Magnesium Troponin I 12/02/18 12/02/18 12/02/18 07:06 11:10 11:16 WBC RBC Hgb Hct MCV MCH MCHC RDW Plt Count ESR Sodium 141 Potassium 4.5 Chloride 104 Carbon Dioxide 25 Anion Gap 17 BUN 23 H Creatinine 0.8 Est GFR ( Amer) > 60 Est GFR (Non-Af Amer) > 60 POC Glucose (mg/dL) 183 H Random Glucose 181 H Calcium 9.0 Phosphorus Magnesium Troponin I 0.8560 H* 12/02/18 16:12 WBC RBC Hgb Hct MCV MCH MCHC RDW Plt Count ESR Sodium Potassium Chloride Carbon Dioxide Anion Gap BUN Creatinine Est GFR ( Amer) Est GFR (Non-Af Amer) POC Glucose (mg/dL) 109 Random Glucose Calcium Phosphorus Magnesium Troponin I Assessment & Plan (1) Elevated troponin Assessment and Plan: etiology ? 2' to CHF serial enzymes x 3 AC bb DAPT echo Status: Acute (2) Acute CHF (congestive heart failure) Assessment and Plan: lasix 40mg IV q12 hours bb, arbs Status: Acute (3) COPD (chronic obstructive pulmonary disease) Status: Acute (4) CAD (coronary artery disease) Status: Acute (5) Diabetic foot ulcer Status: Acute (6) Dyslipidemia Status: Acute (7) HTN (hypertension) Status: Acute (8) PVD (peripheral vascular disease) Status: Acute Priority: High
[2018-12-02] MEDS: Enoxaparin 100 mg Syringe SC SCH (20:15)
--- NOTE | 2018-12-03 01:18 | CP.PCM.PN ---
Subjective - Date & Time of Evaluation Date of Evaluation: 12/02/18 Time of Evaluation: 14:30 - Subjective Subjective: Seen and examined at the bed side. Continue to complain of dyspnea. High Troponin I. +Chills. Denies fever. Objective - Vital Signs/Intake and Output Vital Signs (last 24 hours): Temp Pulse Resp BP Pulse Ox 97.8 F 60 18 118/72 100 12/02/18 23:52 12/02/18 23:52 12/02/18 23:52 12/02/18 23:52 12/02/18 23:52 Intake and Output: 12/02/18 12/03/18 18:59 06:59 Intake Total 1090 Balance 1090 - Medications Medications: Current Medications Acetaminophen (Tylenol 325mg Tab) 650 mg PO Q6 PRN PRN Reason: Pain, Mild (1-3) Albuterol/Ipratropium (Duoneb 3 Mg/0.5 Mg (3 Ml) Ud) 3 ml INH RQ6 [facility] Last Admin: 12/02/18 19:13 Dose: 3 ml Alprazolam (Xanax) 0.25 mg PO DAILY [facility] Stop: 12/08/18 09:01 Last Admin: 12/02/18 09:07 Dose: Not Given Aspirin (Ecotrin) 81 mg PO DAILY [facility] Last Admin: 12/02/18 09:00 Dose: 81 mg Atorvastatin Calcium (Lipitor) 80 mg PO DAILY [facility] Last Admin: 12/02/18 09:02 Dose: 80 mg Clopidogrel Bisulfate (Plavix) 75 mg PO DAILY [facility] Last Admin: 12/02/18 09:03 Dose: 75 mg Dextrose (Dextrose 50% Inj) 0 ml IV STAT PRN; Protocol PRN Reason: Hypoglycemia Protocol Dextrose (Glutose 15) 0 gm PO ONCE PRN; Protocol PRN Reason: Hypoglycemia Protocol Enoxaparin Sodium (Lovenox) 100 mg SC Q12 [facility]; Protocol Last Admin: 12/02/18 20:15 Dose: 100 mg Furosemide (Lasix) 40 mg IVP Q12 [facility] Last Admin: 12/02/18 20:18 Dose: 40 mg Gabapentin (Neurontin) 100 mg PO DAILY [facility] Last Admin: 12/02/18 09:02 Dose: 100 mg Glucagon (Glucagen Diagnostic Kit) 0 mg IM STAT PRN; Protocol PRN Reason: Hypoglycemia Protocol Piperacillin Sod/Tazobactam (Sod 3.375 gm/ Sodium Chloride) 100 mls @ 100 mls/hr IVPB Q8H [facility]; Protocol Last Admin: 12/02/18 21:53 Dose: 100 mls/hr Vancomycin HCl 1 gm/ Sodium (Chloride) 250 mls @ 166.667 mls/hr IVPB Q24H [facility]; Protocol Last Admin: 12/02/18 15:54 Dose: 166.667 mls/hr Insulin Detemir (Levemir) 8 units SC DAILY [facility] Last Admin: 12/02/18 09:01 Dose: 8 units Insulin Human Regular (Humulin R) 0 units SC ACHS [facility]; Protocol Last Admin: 12/02/18 21:55 Dose: Not Given Isosorbide Mononitrate (Imdur Er) 30 mg PO DAILY [facility] Last Admin: 12/02/18 08:51 Dose: 30 mg Lactic Acid (Lac-Hydrin 12% Lotion (225 G)) 1 applic TOP TID [facility] Last Admin: 12/02/18 17:01 Dose: Not Given Lidocaine (Lidoderm) 1 ea TD DAILY [facility] Last Admin: 12/02/18 09:03 Dose: 1 ea Metoprolol Tartrate (Lopressor) 100 mg PO Q12 [facility] Last Admin: 12/02/18 20:17 Dose: 100 mg Montelukast Sodium (Singulair) 10 mg PO DAILY [facility] Last Admin: 12/02/18 09:05 Dose: 10 mg Pantoprazole Sodium (Protonix Ec Tab) 40 mg PO DAILY@0630 [facility] Last Admin: 12/02/18 06:35 Dose: 40 mg Spironolactone (Aldactone) 25 mg PO DAILY [facility] Last Admin: 12/02/18 09:00 Dose: 25 mg - Labs Labs: 12/02/18 07:06 12/02/18 07:06 PT 12.5 Seconds (9.8-13.1) 12/01/18 03:04 INR 1.1 12/01/18 03:04 APTT 30.2 Seconds (25.6-37.1) 12/01/18 03:04 - Constitutional Appears: Well, No Acute Distress - Head Exam Head Exam: ATRAUMATIC, NORMAL INSPECTION, NORMOCEPHALIC - Eye Exam Eye Exam: EOMI, Normal appearance, PERRL Pupil Exam: NORMAL ACCOMODATION, PERRL - ENT Exam ENT Exam: Mucous Membranes Moist, Normal Exam - Neck Exam Neck Exam: Full ROM, Normal Inspection. absent: Lymphadenopathy - Respiratory Exam Respiratory Exam: Clear to Ausculation Bilateral, NORMAL BREATHING PATTERN - Cardiovascular Exam Cardiovascular Exam: Gallop, REGULAR RHYTHM, +S1, +S2, Murmur - GI/Abdominal Exam GI & Abdominal Exam: Soft, Normal Bowel Sounds. absent: Tenderness - Extremities Exam Extremities Exam: Pedal Edema, Tenderness Additional comments: Circular ulceration measuring approximately 5x4.5 extending into subcutaneous tissue noted to R heel with fibrous base, mild malodor, + serous drainage, no purulence appreciated. No tunneling or tracking appreciated. No probe to bone.Gross sensation intact, protective sensation absent Chronic changes to the surrounding skin. - Back Exam Back Exam: NORMAL INSPECTION - Neurological Exam Neurological Exam: Alert, Awake, CN II-XII Intact, Motor Sensory Deficit, Oriented x3 - Psychiatric Exam Psychiatric exam: Normal Affect, Normal Mood - Skin Skin Exam: Dry, Intact, Normal Color, Warm Assessment and Plan (1) NSTEMI (non-ST elevated myocardial infarction) Status: Acute (2) Type 2 diabetes mellitus with diabetic foot infection Status: Acute (3) Acute CHF (congestive heart failure) Status: Acute (4) COPD (chronic obstructive pulmonary disease) Status: Acute (5) Uncontrolled diabetes mellitus Status: Acute - Assessment and Plan (Free Text) Plan: ASA/Plavix BB O2 Via NC IV Lasix 40mg BID 2L O2 Via NC IV Vancomycin and Zosyn Vanco T/P with the 4th dose. Wound Care daily Patent Prosecution Attorney and Staffing Executive Consult TTE Humalog SS Coverage Pain Control PRN
[2018-12-03] MEDS: Albuterol-Ipratrop 3 mg / 0.5 (3 ml) UD INH SCH ×4 (02:00→20:07)
[2018-12-03] MEDS: Pantoprazole 40 mg EC Tab PO SCH (06:29)
[2018-12-03] MEDS: Insulin Regular 100 units/ml SC SCH ×4 (08:09→22:54)
[2018-12-03] MEDS: Lidocaine 5% Patch TD SCH (08:35)
[2018-12-03] MEDS: Enoxaparin 100 mg Syringe SC SCH ×2 (08:37→20:52)
[2018-12-03] MEDS: Insulin Detemir 100 Units/ml Inj SC SCH (09:16)
[2018-12-03] MEDS ORDERED: Lidocaine 1% Inj (20ml) ONE (11:08)
--- NOTE | 2018-12-03 11:44 | PCM.SURG1 ---
Surgeon's Initial Post Op Note - Surgeon's Notes Surgeon: Yosef Babin MD Plant Supervisor: NONE Type of Anesthesia: Local Pre-Operative Diagnosis: Poor venous access Operative Findings: US showed a patent left basilic vein Post-Operative Diagnosis: Poor venous access Operation Performed: Single lumen picc 41 cm via left arm. Specimen/Specimens Removed: NONE Estimated Blood Loss: EBL {In ML}: 2 Blood Products Given: N/A Drains Used: No Drains Post-Op Condition: Fair Date of Surgery/Procedure: 12/03/18 Time of Surgery/Procedure: 11:40
--- NOTE | 2018-12-03 12:29 | VASCULAR ---
PROCEDURE: Date of procedure: 12/03/2018 Procedure: 1. Placement of a left arm PICC with ultrasound and fluoroscopic guidance, CPT 67849 2. PICC tip confirmation with spot radiograph and is in the superior vena cava Medications: 1 percent lidocaine Total Fluoro time: 138.6 seconds Radiation: 20.70 MGy EBL: 3 cc HISTORY: Poor venous access TECHNIQUE: Following informed consent and procedure time-out, the patient placed supine on the interventional table and the left arm prepped and draped in the usual sterile fashion. Ultrasound showed a patent and compressible left basilic vein. After the skin was anesthetized with lidocaine, the basilic vein was accessed with micro micropuncture technique using ultrasound guidance. A guidewire was then advanced under fluoroscopic guidance into the superior vena cava. An image documenting ultrasound guidance for vascular access was permanently saved. The length of a single-lumen 4 British PICC was trimmed to 41 cm and advanced through a peel-away sheath. The PICC was position with tip of PICC confirm a spot radiograph the superior vena cava. The PICC was secured to the patient's skin. The PICC was flushed. A biopatch and sterile dressing was applied. IMPRESSION: Placement of a single-lumen 4 British PICC left basilic vein trimmed to 41 cm. The tip of the PICC is confirmed with spot radiograph and is in the superior vena cava.
--- NOTE | 2018-12-03 12:39 | CP.PCM.PN ---
Subjective - Date & Time of Evaluation Date of Evaluation: 12/03/18 Time of Evaluation: 07:00 - Subjective Subjective: no fever still c/o SOB seen by cardio ulcers same IV rx ordered cultures pending Objective - Vital Signs/Intake and Output Vital Signs (last 24 hours): Temp Pulse Resp BP Pulse Ox 97 F L 66 18 106/53 L 100 12/03/18 11:16 12/03/18 11:16 12/03/18 11:16 12/03/18 11:16 12/03/18 08:08 Intake and Output: 12/03/18 12/03/18 06:59 18:59 Intake Total 1090 Balance 1090 - Medications Medications: Current Medications Acetaminophen (Tylenol 325mg Tab) 650 mg PO Q6 PRN PRN Reason: Pain, Mild (1-3) Last Admin: 12/03/18 08:48 Dose: 650 mg Albuterol/Ipratropium (Duoneb 3 Mg/0.5 Mg (3 Ml) Ud) 3 ml INH RQ6 [facility] Last Admin: 12/03/18 08:06 Dose: 3 ml Alprazolam (Xanax) 0.25 mg PO DAILY [facility] Stop: 12/08/18 09:01 Last Admin: 12/03/18 08:49 Dose: Not Given Aspirin (Ecotrin) 81 mg PO DAILY [facility] Last Admin: 12/03/18 08:33 Dose: 81 mg Atorvastatin Calcium (Lipitor) 80 mg PO DAILY [facility] Last Admin: 12/03/18 08:36 Dose: 80 mg Clopidogrel Bisulfate (Plavix) 75 mg PO DAILY [facility] Last Admin: 12/03/18 08:37 Dose: 75 mg Dextrose (Dextrose 50% Inj) 0 ml IV STAT PRN; Protocol PRN Reason: Hypoglycemia Protocol Dextrose (Glutose 15) 0 gm PO ONCE PRN; Protocol PRN Reason: Hypoglycemia Protocol Enoxaparin Sodium (Lovenox) 100 mg SC Q12 [facility]; Protocol Last Admin: 12/03/18 08:37 Dose: 100 mg Furosemide (Lasix) 40 mg IVP Q12 [facility] Last Admin: 12/02/18 20:18 Dose: 40 mg Gabapentin (Neurontin) 100 mg PO DAILY [facility] Last Admin: 12/03/18 08:37 Dose: 100 mg Glucagon (Glucagen Diagnostic Kit) 0 mg IM STAT PRN; Protocol PRN Reason: Hypoglycemia Protocol Piperacillin Sod/Tazobactam (Sod 3.375 gm/ Sodium Chloride) 100 mls @ 100 mls/hr IVPB Q8H [facility]; Protocol Last Admin: 12/02/18 21:53 Dose: 100 mls/hr Vancomycin HCl 1 gm/ Sodium (Chloride) 250 mls @ 166.667 mls/hr IVPB Q24H [facility]; Protocol Last Admin: 12/02/18 15:54 Dose: 166.667 mls/hr Insulin Detemir (Levemir) 8 units SC DAILY [facility] Last Admin: 12/03/18 09:16 Dose: 8 units Insulin Human Regular (Humulin R) 0 units SC ACHS [facility]; Protocol Last Admin: 12/03/18 08:09 Dose: Not Given Isosorbide Mononitrate (Imdur Er) 30 mg PO DAILY [facility] Last Admin: 12/03/18 08:33 Dose: 30 mg Lactic Acid (Lac-Hydrin 12% Lotion (225 G)) 1 applic TOP TID [facility] Last Admin: 12/03/18 08:32 Dose: 1 applic Lidocaine (Lidoderm) 1 ea TD DAILY [facility] Last Admin: 12/03/18 08:35 Dose: 1 ea Metoprolol Tartrate (Lopressor) 100 mg PO Q12 [facility] Last Admin: 12/03/18 08:36 Dose: 100 mg Montelukast Sodium (Singulair) 10 mg PO DAILY [facility] Last Admin: 12/03/18 08:37 Dose: 10 mg Pantoprazole Sodium (Protonix Ec Tab) 40 mg PO DAILY@0630 [facility] Last Admin: 12/03/18 06:29 Dose: 40 mg Spironolactone (Aldactone) 25 mg PO DAILY [facility] Last Admin: 12/03/18 08:33 Dose: 25 mg - Labs Labs: 12/02/18 07:06 12/02/18 07:06 PT 12.5 Seconds (9.8-13.1) 12/01/18 03:04 INR 1.1 12/01/18 03:04 APTT 30.2 Seconds (25.6-37.1) 12/01/18 03:04 - Constitutional Appears: Non-toxic, Chronically Ill - Head Exam Head Exam: NORMOCEPHALIC - Eye Exam Eye Exam: absent: Scleral icterus - ENT Exam ENT Exam: Mucous Membranes Dry - Neck Exam Neck Exam: absent: Lymphadenopathy - Respiratory Exam Respiratory Exam: Decreased Breath Sounds - Cardiovascular Exam Cardiovascular Exam: REGULAR RHYTHM - GI/Abdominal Exam GI & Abdominal Exam: Distended, Soft - Rectal Exam Rectal Exam: Deferred - Exam Exam: NORMAL INSPECTION - Extremities Exam Extremities Exam: Pedal Edema - Back Exam Back Exam: absent: CVA tenderness (L), CVA tenderness (R) - Neurological Exam Neurological Exam: Alert, Awake, Oriented x3 - Psychiatric Exam Psychiatric exam: Depressed - Skin Skin Exam: Dry Assessment and Plan (1) COPD (chronic obstructive pulmonary disease) Status: Acute (2) Chronic congestive heart failure Status: Acute (3) CAD (coronary artery disease) Status: Acute (4) Diabetic foot ulcer Status: Acute (5) Cellulitis and abscess of foot Status: Acute (6) Acute coronary insufficiency syndrome Status: Acute - Assessment and Plan (Free Text) Assessment: IV rx renewed
--- NOTE | 2018-12-03 12:50 | CP.PCM.PN ---
<Carlos Dempsey - Last Filed: 12/03/18 21:10> Subjective - Date & Time of Evaluation Date of Evaluation: 12/03/18 Time of Evaluation: 21:10 - Subjective Subjective: Carlos Dempsey DO PGY1 - Internal Medicine Inside Outside Sales Representative - Cardiology Note for Dr. Juárez This afternoon, patient was seen and examined. She is still complaining of sharp chest pain, pleuritic a nature, and continues to complain of shortness of breath, orthopnea, and lower extremity edema. patient underwent echocardiogram this morning. Objective - Vital Signs/Intake and Output Vital Signs (last 24 hours): Temp Pulse Resp BP Pulse Ox 97 F L 66 18 106/53 L 100 12/03/18 11:16 12/03/18 11:16 12/03/18 11:16 12/03/18 11:16 12/03/18 08:08 Intake and Output: 12/03/18 12/03/18 06:59 18:59 Intake Total 1090 Balance 1090 - Medications Medications: Current Medications Acetaminophen (Tylenol 325mg Tab) 650 mg PO Q6 PRN PRN Reason: Pain, Mild (1-3) Last Admin: 12/03/18 08:48 Dose: 650 mg Albuterol/Ipratropium (Duoneb 3 Mg/0.5 Mg (3 Ml) Ud) 3 ml INH RQ6 [facility] Last Admin: 12/03/18 08:06 Dose: 3 ml Alprazolam (Xanax) 0.25 mg PO DAILY [facility] Stop: 12/08/18 09:01 Last Admin: 12/03/18 08:49 Dose: Not Given Aspirin (Ecotrin) 81 mg PO DAILY [facility] Last Admin: 12/03/18 08:33 Dose: 81 mg Atorvastatin Calcium (Lipitor) 80 mg PO DAILY [facility] Last Admin: 12/03/18 08:36 Dose: 80 mg Clopidogrel Bisulfate (Plavix) 75 mg PO DAILY [facility] Last Admin: 12/03/18 08:37 Dose: 75 mg Dextrose (Dextrose 50% Inj) 0 ml IV STAT PRN; Protocol PRN Reason: Hypoglycemia Protocol Dextrose (Glutose 15) 0 gm PO ONCE PRN; Protocol PRN Reason: Hypoglycemia Protocol Enoxaparin Sodium (Lovenox) 100 mg SC Q12 [facility]; Protocol Last Admin: 12/03/18 08:37 Dose: 100 mg Furosemide (Lasix) 40 mg IVP Q12 [facility] Last Admin: 12/02/18 20:18 Dose: 40 mg Gabapentin (Neurontin) 100 mg PO DAILY [facility] Last Admin: 12/03/18 08:37 Dose: 100 mg Glucagon (Glucagen Diagnostic Kit) 0 mg IM STAT PRN; Protocol PRN Reason: Hypoglycemia Protocol Piperacillin Sod/Tazobactam (Sod 3.375 gm/ Sodium Chloride) 100 mls @ 100 mls/hr IVPB Q8H [facility]; Protocol Last Admin: 12/02/18 21:53 Dose: 100 mls/hr Vancomycin HCl 1 gm/ Sodium (Chloride) 250 mls @ 166.667 mls/hr IVPB Q24H [facility]; Protocol Last Admin: 12/02/18 15:54 Dose: 166.667 mls/hr Insulin Detemir (Levemir) 8 units SC DAILY [facility] Last Admin: 12/03/18 09:16 Dose: 8 units Insulin Human Regular (Humulin R) 0 units SC ACHS [facility]; Protocol Last Admin: 12/03/18 08:09 Dose: Not Given Isosorbide Mononitrate (Imdur Er) 30 mg PO DAILY [facility] Last Admin: 12/03/18 08:33 Dose: 30 mg Lactic Acid (Lac-Hydrin 12% Lotion (225 G)) 1 applic TOP TID [facility] Last Admin: 12/03/18 08:32 Dose: 1 applic Lidocaine (Lidoderm) 1 ea TD DAILY [facility] Last Admin: 12/03/18 08:35 Dose: 1 ea Metoprolol Tartrate (Lopressor) 100 mg PO Q12 [facility] Last Admin: 12/03/18 08:36 Dose: 100 mg Montelukast Sodium (Singulair) 10 mg PO DAILY [facility] Last Admin: 12/03/18 08:37 Dose: 10 mg Pantoprazole Sodium (Protonix Ec Tab) 40 mg PO DAILY@0630 [facility] Last Admin: 12/03/18 06:29 Dose: 40 mg Spironolactone (Aldactone) 25 mg PO DAILY [facility] Last Admin: 12/03/18 08:33 Dose: 25 mg - Labs Labs: 12/02/18 07:06 12/02/18 07:06 PT 12.5 Seconds (9.8-13.1) 12/01/18 03:04 INR 1.1 12/01/18 03:04 APTT 30.2 Seconds (25.6-37.1) 12/01/18 03:04 - Constitutional Appears: Well, No Acute Distress - Head Exam Head Exam: ATRAUMATIC, NORMOCEPHALIC - Eye Exam Eye Exam: EOMI, PERRL - Respiratory Exam Additional comments: Diminished breath sounds bilaterally; Mild crackles heard of the bases bilaterally - Cardiovascular Exam Cardiovascular Exam: RRR, +S1, +S2 - GI/Abdominal Exam GI & Abdominal Exam: Soft, Normal Bowel Sounds - Extremities Exam Additional comments: 3+ pitting edema bilaterally RLE ulcer dressed; dressing CDI Assessment and Plan - Assessment and Plan (Free Text) Plan: continuing aspirin Plavix, imdur, Lasix beta norberto, spironolactone Will plan for cardiac cath tommorrow 12/04. <Rm Jimenez - Last Filed: 12/04/18 20:55> Objective - Vital Signs/Intake and Output Vital Signs (last 24 hours): Temp Pulse Resp BP Pulse Ox 97.1 F L 66 20 115/55 L 100 12/04/18 19:49 12/04/18 19:49 12/04/18 19:49 12/04/18 19:49 12/04/18 19:49 - Medications Medications: Current Medications Acetaminophen (Tylenol 325mg Tab) 650 mg PO Q6 PRN PRN Reason: Pain, Mild (1-3) Last Admin: 12/03/18 08:48 Dose: 650 mg Albuterol/Ipratropium (Duoneb 3 Mg/0.5 Mg (3 Ml) Ud) 3 ml INH RQ6 [facility] Last Admin: 12/04/18 19:30 Dose: 3 ml Alprazolam (Xanax) 0.25 mg PO DAILY [facility] Stop: 12/08/18 09:01 Last Admin: 12/04/18 17:32 Dose: Not Given Aspirin (Ecotrin) 81 mg PO DAILY [facility] Last Admin: 12/04/18 08:59 Dose: 81 mg Atorvastatin Calcium (Lipitor) 80 mg PO DAILY [facility] Last Admin: 12/04/18 17:31 Dose: Not Given Clopidogrel Bisulfate (Plavix) 75 mg PO DAILY [facility] Last Admin: 12/04/18 08:59 Dose: 75 mg Dextrose (Dextrose 50% Inj) 0 ml IV STAT PRN; Protocol PRN Reason: Hypoglycemia Protocol Dextrose (Glutose 15) 0 gm PO ONCE PRN; Protocol PRN Reason: Hypoglycemia Protocol Enoxaparin Sodium (Lovenox) 100 mg SC Q12 [facility]; Protocol Last Admin: 12/04/18 17:31 Dose: Not Given Furosemide (Lasix) 40 mg IVP Q12 [facility] Last Admin: 12/04/18 17:30 Dose: Not Given Gabapentin (Neurontin) 100 mg PO DAILY [facility] Last Admin: 12/04/18 17:31 Dose: Not Given Glucagon (Glucagen Diagnostic Kit) 0 mg IM STAT PRN; Protocol PRN Reason: Hypoglycemia Protocol Piperacillin Sod/Tazobactam (Sod 3.375 gm/ Sodium Chloride) 100 mls @ 100 mls/hr IVPB Q8H [facility]; Protocol Last Admin: 12/04/18 17:32 Dose: Not Given Vancomycin HCl 1 gm/ Sodium (Chloride) 250 mls @ 166.667 mls/hr IVPB Q24H [facility]; Protocol Last Admin: 12/04/18 17:31 Dose: Not Given Insulin Detemir (Levemir) 8 units SC DAILY [facility] Last Admin: 12/04/18 17:30 Dose: Not Given Insulin Human Regular (Humulin R) 0 units SC ACHS [facility]; Protocol Last Admin: 12/04/18 17:29 Dose: Not Given Isosorbide Mononitrate (Imdur Er) 30 mg PO DAILY [facility] Last Admin: 12/04/18 17:30 Dose: Not Given Lactic Acid (Lac-Hydrin 12% Lotion (225 G)) 1 applic TOP TID [facility] Last Admin: 12/04/18 17:30 Dose: Not Given Lidocaine (Lidoderm) 1 ea TD DAILY [facility] Last Admin: 12/04/18 17:30 Dose: Not Given Metoprolol Tartrate (Lopressor) 100 mg PO Q12 [facility] Last Admin: 12/04/18 08:59 Dose: 100 mg Montelukast Sodium (Singulair) 10 mg PO DAILY [facility] Last Admin: 12/04/18 17:31 Dose: Not Given Pantoprazole Sodium (Protonix Ec Tab) 40 mg PO DAILY@0630 [facility] Last Admin: 12/04/18 06:06 Dose: 40 mg Spironolactone (Aldactone) 25 mg PO DAILY [facility] Last Admin: 12/04/18 17:29 Dose: Not Given - Labs Labs: 12/02/18 07:06 12/02/18 07:06 PT 12.5 Seconds (9.8-13.1) 12/01/18 03:04 INR 1.1 12/01/18 03:04 APTT 30.2 Seconds (25.6-37.1) 12/01/18 03:04 Assessment and Plan (1) Elevated troponin Status: Acute (2) Acute CHF (congestive heart failure) Status: Acute (3) COPD (chronic obstructive pulmonary disease) Status: Acute (4) CAD (coronary artery disease) Status: Acute (5) Diabetic foot ulcer Status: Acute (6) Dyslipidemia Status: Acute (7) HTN (hypertension) Status: Acute (8) PVD (peripheral vascular disease) Status: Acute Attending/Attestation - Attestation I have personally seen and examined this patient.: Yes I have fully participated in the care of the patient.: Yes I have reviewed all pertinent clinical information, including history, physical exam and plan: Yes Notes (Text): 12/04/18 20:54 Rx for ACS per protocol Echo shows severe plan for CHCx in am at [facility] NPO p mn afib GDMT for CAD and CHF
[2018-12-03 13:32] LABS: SQUAMOUS EPITHIAL 12 /hpf (0-5); URINE BACTERIA FEW (<OCC); URINE BILIRUBIN NEGATIVE (NEGATIVE); URINE BLOOD NEGATIVE (NEGATIVE); URINE CLARITY CLOUDY (Clear); URINE COLOR AMBER (YELLOW); URINE GLUCOSE (UA) NEG (NEGATIVE); URINE LEUKOCYTE ESTERASE NEG Leu/uL (Negative); URINE PROTEIN NEGATIVE (NEGATIVE)
[2018-12-03] MEDS: Piperacillin/Tazobact 3.375 GM in Sodium Chloride 0.9% 100 ML IVPB SCH ×2 (14:06→22:53)
--- NOTE | 2018-12-03 16:00 | CARD ---
APPROVED REPORT Date of service: 12/03/2018 EXAM: Two-dimensional and M-mode echocardiogram with Doppler and color Doppler. Other Information Quality : GoodRhythm : NSR INDICATION Congestive Heart Failure 2D DIMENSIONS IVSd1.19 (0.7-1.1cm)LVDd4.31 (3.9-5.9cm) LVOT Diameter1.95 (1.8-2.4cm)PWd1.39 (0.7-1.1cm) IVSs1.28 (0.8-1.2cm)LVDs5.00 (2.5-4.0cm) FS (%) 15.8 %PWs1.50 (0.8-1.2cm) M-Mode DIMENSIONS Left Atrium (MM)5.63 (2.5-4.0cm)IVSd1.50 (0.7-1.1cm) Aortic Root2.91 (2.2-3.7cm)LVDd5.28 (4.0-5.6cm) Aortic Cusp Exc.0.91 (1.5-2.0cm)PWd1.38 (0.7-1.1cm) IVSs1.69 cmFS (%) 27 % LVDs3.88 (2.0-3.8cm)PWs1.75 cm Aortic Valve AoV Peak Rxhmwwct956.2cm/sAoV VTI79.1cmAO Peak GR.41mmHg LVOT Peak Dgqpyepo02.0cm/sLVOT VTI18.72cmAO Mean GR.25mmHg ISABEL (VMAX)0.93mv2CTV (VTI)0.35cm2 Mitral Valve MV E Opslxnxx403.1cm/sMV DECEL [id number] A Kxrhptdc41.7cm/s MV FJR03zbV/A ratio1.4MVA (PHT)3.23cm2 TDI Lateral E' Peak V5.46cm/sMedial E' Peak V4.07cm/sE/Lateral E'25.1 E/Medial E'33.7 Tricuspid Valve TR Peak Fkjggttq601ay/sRAP [id number] Peak Gr.30mmHg [id number] LEFT VENTRICLE The left ventricle is normal size. There is borderline to mild concentric left ventricular hypertrophy. The systolic function is mildly to moderately impaired. The estimated ejection fraction is 40-45% There is mild global hypokinesis of the left ventricle with minor regional wall variations. Transmitral Doppler flow pattern is Grade II-pseudonormal filling dynamics. No left ventricle thrombus noted on this study. There is no ventricular septal defect visualized. There is no left ventricular aneurysm. There is no mass noted in the left ventricle. RIGHT VENTRICLE The right ventricle is normal size. There is normal right ventricular wall thickness. The right ventricular systolic function is normal. ATRIA The left atrium is moderate to severely dilated. The right atrium size is normal. The interatrial septum is intact with no evidence for an atrial septal defect. AORTIC VALVE The aortic valve is calcified. No aortic regurgitation is present. There is severe valvular aortic stenosis. Peak aortic valve velocity is calculated at 3.5 m/sec and calculated AV area is < 1 cm2. There is no aortic valvular vegetation. MITRAL VALVE The mitral valve is normal in structure. There is no evidence of mitral valve prolapse. There is no mitral valve stenosis. There is mild mitral valve regurgitation noted. TRICUSPID VALVE The tricuspid valve is normal in structure. There is mild tricuspid valve regurgitation noted. RVSP is calculated at 41 mm Hg. There is no tricuspid valve prolapse or vegetation. There is no tricuspid valve stenosis. PULMONIC VALVE The pulmonary valve is normal in structure. There is no pulmonic valvular regurgitation. There is no pulmonic valvular stenosis. GREAT VESSELS The aortic root is normal in size. The ascending aorta is normal in size. The pulmonary artery is normal. The IVC is dilated in size and collapses >50% with inspiration. PERICARDIAL EFFUSION There is no pericardial effusion. There is no pleural effusion. <Conclusion> There is borderline to mild concentric left ventricular hypertrophy. The systolic function is mildly to moderately impaired. The estimated ejection fraction is 40-45% Transmitral Doppler flow pattern is Grade II-pseudonormal filling dynamics. The left atrium is moderate to severely dilated. There is severe valvular aortic stenosis. Peak aortic valve velocity is calculated at 3.5 m/sec and calculated AV area is < 1 cm2. Correlate clinically. There is mild mitral valve regurgitation noted. There is mild tricuspid valve regurgitation noted. RVSP is calculated at 41 mm Hg. The IVC is dilated in size and collapses >50% with inspiration.
--- NOTE | 2018-12-03 17:45 | CP.PCM.PN ---
Subjective - Date & Time of Evaluation Date of Evaluation: 12/03/18 Time of Evaluation: 14:40 - Subjective Subjective: No New complaint. Cardiology input appreciated. Objective - Vital Signs/Intake and Output Vital Signs (last 24 hours): Temp Pulse Resp BP Pulse Ox 97.6 F 59 L 20 94/58 L 97 12/03/18 15:47 12/03/18 15:47 12/03/18 15:47 12/03/18 15:47 12/03/18 15:47 Intake and Output: 12/03/18 12/03/18 06:59 18:59 Intake Total 1090 Balance 1090 - Medications Medications: Current Medications Acetaminophen (Tylenol 325mg Tab) 650 mg PO Q6 PRN PRN Reason: Pain, Mild (1-3) Last Admin: 12/03/18 08:48 Dose: 650 mg Albuterol/Ipratropium (Duoneb 3 Mg/0.5 Mg (3 Ml) Ud) 3 ml INH RQ6 [facility] Last Admin: 12/03/18 14:00 Dose: 3 ml Alprazolam (Xanax) 0.25 mg PO DAILY [facility] Stop: 12/08/18 09:01 Last Admin: 12/03/18 08:49 Dose: Not Given Aspirin (Ecotrin) 81 mg PO DAILY [facility] Last Admin: 12/03/18 08:33 Dose: 81 mg Atorvastatin Calcium (Lipitor) 80 mg PO DAILY [facility] Last Admin: 12/03/18 08:36 Dose: 80 mg Clopidogrel Bisulfate (Plavix) 75 mg PO DAILY [facility] Last Admin: 12/03/18 08:37 Dose: 75 mg Dextrose (Dextrose 50% Inj) 0 ml IV STAT PRN; Protocol PRN Reason: Hypoglycemia Protocol Dextrose (Glutose 15) 0 gm PO ONCE PRN; Protocol PRN Reason: Hypoglycemia Protocol Enoxaparin Sodium (Lovenox) 100 mg SC Q12 [facility]; Protocol Last Admin: 12/03/18 08:37 Dose: 100 mg Furosemide (Lasix) 40 mg IVP Q12 [facility] Last Admin: 12/02/18 20:18 Dose: 40 mg Gabapentin (Neurontin) 100 mg PO DAILY [facility] Last Admin: 12/03/18 08:37 Dose: 100 mg Glucagon (Glucagen Diagnostic Kit) 0 mg IM STAT PRN; Protocol PRN Reason: Hypoglycemia Protocol Piperacillin Sod/Tazobactam (Sod 3.375 gm/ Sodium Chloride) 100 mls @ 100 mls/hr IVPB Q8H [facility]; Protocol Last Admin: 12/03/18 14:06 Dose: 100 mls/hr Vancomycin HCl 1 gm/ Sodium (Chloride) 250 mls @ 166.667 mls/hr IVPB Q24H [facility]; Protocol Last Admin: 12/03/18 15:19 Dose: 166.667 mls/hr Insulin Detemir (Levemir) 8 units SC DAILY [facility] Last Admin: 12/03/18 09:16 Dose: 8 units Insulin Human Regular (Humulin R) 0 units SC ACHS [facility]; Protocol Last Admin: 12/03/18 16:18 Dose: 2 units Isosorbide Mononitrate (Imdur Er) 30 mg PO DAILY [facility] Last Admin: 12/03/18 08:33 Dose: 30 mg Lactic Acid (Lac-Hydrin 12% Lotion (225 G)) 1 applic TOP TID [facility] Last Admin: 12/03/18 16:19 Dose: 1 applic Lidocaine (Lidoderm) 1 ea TD DAILY [facility] Last Admin: 12/03/18 08:35 Dose: 1 ea Metoprolol Tartrate (Lopressor) 100 mg PO Q12 [facility] Last Admin: 12/03/18 08:36 Dose: 100 mg Montelukast Sodium (Singulair) 10 mg PO DAILY [facility] Last Admin: 12/03/18 08:37 Dose: 10 mg Pantoprazole Sodium (Protonix Ec Tab) 40 mg PO DAILY@0630 [facility] Last Admin: 12/03/18 06:29 Dose: 40 mg Spironolactone (Aldactone) 25 mg PO DAILY [facility] Last Admin: 12/03/18 08:33 Dose: 25 mg - Labs Labs: 12/02/18 07:06 12/02/18 07:06 PT 12.5 Seconds (9.8-13.1) 12/01/18 03:04 INR 1.1 12/01/18 03:04 APTT 30.2 Seconds (25.6-37.1) 12/01/18 03:04 Assessment and Plan (1) Acute CHF (congestive heart failure) Status: Acute (2) CAD (coronary artery disease) Status: Chronic (3) COPD (chronic obstructive pulmonary disease) Status: Chronic (4) Diabetic foot ulcer Status: Acute (5) HTN (hypertension) Status: Chronic (6) NSTEMI (non-ST elevated myocardial infarction) Status: Acute (7) PVD (peripheral vascular disease) Status: Chronic (8) Type 2 diabetes mellitus with diabetic foot infection Status: Acute (9) Uncontrolled diabetes mellitus Status: Acute - Assessment and Plan (Free Text) Plan: ASA/Plavix BB O2 Via NC IV Lasix 40mg BID 2L O2 Via NC IV Vancomycin and Zosyn Vanco T/P with the 4th dose. Wound Care daily [employer] Input appreciated. Going for Cardiac Cath in am NPO PAst Midnight. Humalog SS Coverage Pain Control PRN
--- NOTE | 2018-12-03 19:49 | CARD ---
APPROVED REPORT Date of service: 12/02/2018 EKG Measurement Heart [id number] <Conclusion> Atrial fibrillation with rapid ventricular response Nonspecific T wave abnormality Abnormal ECG
[2018-12-04] MEDS: Albuterol-Ipratrop 3 mg / 0.5 (3 ml) UD INH SCH ×4 (01:00→19:30)
[2018-12-04] MEDS: Piperacillin/Tazobact 3.375 GM in Sodium Chloride 0.9% 100 ML IVPB SCH ×3 (06:06→21:45)
[2018-12-04] MEDS: Pantoprazole 40 mg EC Tab PO SCH (06:06)
--- NOTE | 2018-12-04 07:44 | CP.PCM.CON ---
History of Present Illness - History of Present Illness History of Present Illness: Podiatry Consult note for Dr. Smith: 73 yo female patient, with PMHx of CAD, DM, CHF, COPD seen and evaluated at bedside for bilateral lower extremity edema and R plantar ulceration. Patient states that her son continues to change her ulcer dressing at home, however it hasn't improved since her last hospital visit. She states that she has been having difficulty breathing and presented to the hospital. She denies any acute pedal complaints at this time. Denies N/V/F/CP. PMHx: CAD, DM, CHF, COPD PSHx: Denies Allergies: NKDA SHx: Denies tobacco use Review of Systems - Constitutional Constitutional: As Per HPI Past Patient History - Past Medical History & Family History Past Medical History?: Yes - Past Social History Smoking Status: Former Smoker - CARDIAC Hx Hypercholesterolemia: Yes Hx Hypertension: Yes Hx Pacemaker: No - PULMONARY Hx Asthma: Yes - NEUROLOGICAL Hx Neurological Disorder: No - HEENT Hx HEENT Problems: Yes Other/Comment: Uses eye glasses. - RENAL Hx Chronic Kidney Disease: No - ENDOCRINE/METABOLIC Hx Endocrine Disorders: Yes Hx Diabetes Mellitus Type 2: Yes - HEMATOLOGICAL/ONCOLOGICAL Hx Blood Disorders: No Hx AIDS: No Hx Cancer: No Hx Human Immunodeficiency Virus (HIV): No - INTEGUMENTARY Hx Dermatological Problems: Yes Other/Comment: Scaly bilateral lower legs. - MUSCULOSKELETAL/RHEUMATOLOGICAL Hx Musculoskeletal Disorders: Yes Hx Falls: Yes Hx Unsteady Gait: Yes - GASTROINTESTINAL Hx Gastrointestinal Disorders: No - GENITOURINARY/GYNECOLOGICAL Hx Genitourinary Disorders: No - PSYCHIATRIC Hx Psychophysiologic Disorder: No Hx Substance Use: No - SURGICAL HISTORY Hx Surgeries: No Hx Mastectomy: No - ANESTHESIA Hx Anesthesia: Yes Hx Anesthesia Reactions: No Hx Malignant Hyperthermia: No Has any member of the family had a problem w/ anesthesia?: No Meds Allergies/Adverse Reactions: Allergies Allergy/AdvReac Type Severity Reaction Status Date / Time No Known Allergies Allergy Verified 09/21/18 05:50 - Medications Medications: Current Medications Acetaminophen (Tylenol 325mg Tab) 650 mg PO Q6 PRN PRN Reason: Pain, Mild (1-3) Last Admin: 12/03/18 08:48 Dose: 650 mg Albuterol/Ipratropium (Duoneb 3 Mg/0.5 Mg (3 Ml) Ud) 3 ml INH RQ6 [facility] Last Admin: 12/04/18 01:00 Dose: Not Given Alprazolam (Xanax) 0.25 mg PO DAILY [facility] Stop: 12/08/18 09:01 Last Admin: 12/03/18 08:49 Dose: Not Given Aspirin (Ecotrin) 81 mg PO DAILY [facility] Last Admin: 12/03/18 08:33 Dose: 81 mg Atorvastatin Calcium (Lipitor) 80 mg PO DAILY [facility] Last Admin: 12/03/18 08:36 Dose: 80 mg Clopidogrel Bisulfate (Plavix) 75 mg PO DAILY [facility] Last Admin: 12/03/18 08:37 Dose: 75 mg Dextrose (Dextrose 50% Inj) 0 ml IV STAT PRN; Protocol PRN Reason: Hypoglycemia Protocol Dextrose (Glutose 15) 0 gm PO ONCE PRN; Protocol PRN Reason: Hypoglycemia Protocol Enoxaparin Sodium (Lovenox) 100 mg SC Q12 [facility]; Protocol Last Admin: 12/03/18 20:52 Dose: 100 mg Furosemide (Lasix) 40 mg IVP Q12 [facility] Last Admin: 12/03/18 20:52 Dose: 40 mg Gabapentin (Neurontin) 100 mg PO DAILY [facility] Last Admin: 12/03/18 08:37 Dose: 100 mg Glucagon (Glucagen Diagnostic Kit) 0 mg IM STAT PRN; Protocol PRN Reason: Hypoglycemia Protocol Piperacillin Sod/Tazobactam (Sod 3.375 gm/ Sodium Chloride) 100 mls @ 100 mls/hr IVPB Q8H [facility]; Protocol Last Admin: 12/04/18 06:06 Dose: 100 mls/hr Vancomycin HCl 1 gm/ Sodium (Chloride) 250 mls @ 166.667 mls/hr IVPB Q24H [facility]; Protocol Last Admin: 12/03/18 15:19 Dose: 166.667 mls/hr Insulin Detemir (Levemir) 8 units SC DAILY [facility] Last Admin: 12/03/18 09:16 Dose: 8 units Insulin Human Regular (Humulin R) 0 units SC ACHS [facility]; Protocol Last Admin: 12/03/18 22:54 Dose: Not Given Isosorbide Mononitrate (Imdur Er) 30 mg PO DAILY [facility] Last Admin: 12/03/18 08:33 Dose: 30 mg Lactic Acid (Lac-Hydrin 12% Lotion (225 G)) 1 applic TOP TID [facility] Last Admin: 12/03/18 16:19 Dose: 1 applic Lidocaine (Lidoderm) 1 ea TD DAILY [facility] Last Admin: 12/03/18 08:35 Dose: 1 ea Metoprolol Tartrate (Lopressor) 100 mg PO Q12 [facility] Last Admin: 12/03/18 20:53 Dose: 100 mg Montelukast Sodium (Singulair) 10 mg PO DAILY [facility] Last Admin: 12/03/18 08:37 Dose: 10 mg Pantoprazole Sodium (Protonix Ec Tab) 40 mg PO DAILY@0630 [facility] Last Admin: 12/04/18 06:06 Dose: 40 mg Spironolactone (Aldactone) 25 mg PO DAILY [facility] Last Admin: 12/03/18 08:33 Dose: 25 mg Physical Exam - Constitutional Appears: Non-toxic, No Acute Distress - Extremities Exam Additional comments: Vasc: DP/PT pulses are non-palpable bilaterally, Cap refill time < 3 sec to all digits, TG warm to warm, +2 edema noted extending from foot proximally to the mid leg level bilaterally Ortho: Pain on palpation to legs, pain upon ROM bilateral LE. No pain on palpation of the calf b/l Neuro: Gross sensation intact, protective sensation absent Derm: RLE: Circular ulceration measuring approximately 5x4.5 extending into subcutaneous tissue noted to R heel with fibrous base, mild malodor, + serous drainage, no purulence appreciated. No tunneling or tracking appreciated. No probe to bone. - Neurological Exam Neurological exam: Alert, Oriented x3 - Psychiatric Exam Psychiatric exam: Normal Affect, Normal Mood Results - Vital Signs Recent Vital Signs: Last Vital Signs Temp 97.5 F L 12/04/18 05:00 Pulse 65 12/04/18 05:00 Resp 20 12/04/18 05:00 BP 118/75 12/04/18 05:00 Pulse Ox 100 12/04/18 05:00 - Labs Result Diagrams: 12/02/18 07:06 12/02/18 07:06 Labs: Laboratory Results - last 24 hr 12/03/18 12/03/18 12/03/18 09:05 12:50 12:52 POC Glucose (mg/dL) 189 H Procalcitonin 0.08 L Urine Color Casie Urine Clarity Cloudy Urine pH 5.0 Ur Specific [place] 1.023 Urine Protein Negative Urine Glucose (UA) Neg Urine Ketones Negative Urine Blood Negative Urine Nitrate Negative Urine Bilirubin Negative Urine Urobilinogen 4.0 H Ur Leukocyte Esterase Neg Urine RBC (Auto) 3 Urine Microscopic WBC 4 Ur Squamous Epith Cells 12 H Urine Bacteria Few H 12/03/18 12/03/18 12/04/18 15:58 21:17 05:21 POC Glucose (mg/dL) 198 H 119 H 147 H Procalcitonin Urine Color Urine Clarity Urine pH Ur Specific [place] Urine Protein Urine Glucose (UA) Urine Ketones Urine Blood Urine Nitrate Urine Bilirubin Urine Urobilinogen Ur Leukocyte Esterase Urine RBC (Auto) Urine Microscopic WBC Ur Squamous Epith Cells Urine Bacteria Assessment & Plan - Assessment and Plan (Free Text) Assessment: 73 yo female patient, with PMHx of CAD, DM, CHF, COPD seen and evaluated at bedside for bilateral lower extremity edema and R plantar ulceration. Plan: Patient seen and evaluated Discussed patient plan in detail with Dr. Smith Continue with IV abx Local wound care: R ulceration cleansed with Dakins solution and dressed with ABD, DSD Multipodus boots ordered, to be worn at all times while in bed Podiatry will continue to follow Thank you for the consult - Date & Time Date: 12/02/18 Time: 02:30
--- NOTE | 2018-12-04 07:52 | CP.PCM.PN ---
Subjective - Date & Time of Evaluation Date of Evaluation: 12/04/18 Time of Evaluation: 07:51 - Subjective Subjective: Podiatry Consult note for Dr. Smith: 73 yo female patient seen and evaluated at bedside for bilateral lower extremity edema and R plantar ulceration. Patient states that her right foot was draining a mild amount overnight. She denies any acute pedal complaints at this time. Denies N/V/F/CP. Objective - Vital Signs/Intake and Output Vital Signs (last 24 hours): Temp Pulse Resp BP Pulse Ox 97.5 F L 65 20 118/75 100 12/04/18 05:00 12/04/18 05:00 12/04/18 05:00 12/04/18 05:00 12/04/18 05:00 - Medications Medications: Current Medications Acetaminophen (Tylenol 325mg Tab) 650 mg PO Q6 PRN PRN Reason: Pain, Mild (1-3) Last Admin: 12/03/18 08:48 Dose: 650 mg Albuterol/Ipratropium (Duoneb 3 Mg/0.5 Mg (3 Ml) Ud) 3 ml INH RQ6 [facility] Last Admin: 12/04/18 01:00 Dose: Not Given Alprazolam (Xanax) 0.25 mg PO DAILY [facility] Stop: 12/08/18 09:01 Last Admin: 12/03/18 08:49 Dose: Not Given Aspirin (Ecotrin) 81 mg PO DAILY [facility] Last Admin: 12/03/18 08:33 Dose: 81 mg Atorvastatin Calcium (Lipitor) 80 mg PO DAILY [facility] Last Admin: 12/03/18 08:36 Dose: 80 mg Clopidogrel Bisulfate (Plavix) 75 mg PO DAILY [facility] Last Admin: 12/03/18 08:37 Dose: 75 mg Dextrose (Dextrose 50% Inj) 0 ml IV STAT PRN; Protocol PRN Reason: Hypoglycemia Protocol Dextrose (Glutose 15) 0 gm PO ONCE PRN; Protocol PRN Reason: Hypoglycemia Protocol Enoxaparin Sodium (Lovenox) 100 mg SC Q12 [facility]; Protocol Last Admin: 12/03/18 20:52 Dose: 100 mg Furosemide (Lasix) 40 mg IVP Q12 [facility] Last Admin: 12/03/18 20:52 Dose: 40 mg Gabapentin (Neurontin) 100 mg PO DAILY [facility] Last Admin: 12/03/18 08:37 Dose: 100 mg Glucagon (Glucagen Diagnostic Kit) 0 mg IM STAT PRN; Protocol PRN Reason: Hypoglycemia Protocol Piperacillin Sod/Tazobactam (Sod 3.375 gm/ Sodium Chloride) 100 mls @ 100 mls/hr IVPB Q8H [facility]; Protocol Last Admin: 12/04/18 06:06 Dose: 100 mls/hr Vancomycin HCl 1 gm/ Sodium (Chloride) 250 mls @ 166.667 mls/hr IVPB Q24H [facility]; Protocol Last Admin: 12/03/18 15:19 Dose: 166.667 mls/hr Insulin Detemir (Levemir) 8 units SC DAILY [facility] Last Admin: 12/03/18 09:16 Dose: 8 units Insulin Human Regular (Humulin R) 0 units SC ACHS [facility]; Protocol Last Admin: 12/03/18 22:54 Dose: Not Given Isosorbide Mononitrate (Imdur Er) 30 mg PO DAILY [facility] Last Admin: 12/03/18 08:33 Dose: 30 mg Lactic Acid (Lac-Hydrin 12% Lotion (225 G)) 1 applic TOP TID [facility] Last Admin: 12/03/18 16:19 Dose: 1 applic Lidocaine (Lidoderm) 1 ea TD DAILY [facility] Last Admin: 12/03/18 08:35 Dose: 1 ea Metoprolol Tartrate (Lopressor) 100 mg PO Q12 [facility] Last Admin: 12/03/18 20:53 Dose: 100 mg Montelukast Sodium (Singulair) 10 mg PO DAILY [facility] Last Admin: 12/03/18 08:37 Dose: 10 mg Pantoprazole Sodium (Protonix Ec Tab) 40 mg PO DAILY@0630 [facility] Last Admin: 12/04/18 06:06 Dose: 40 mg Spironolactone (Aldactone) 25 mg PO DAILY [facility] Last Admin: 12/03/18 08:33 Dose: 25 mg - Labs Labs: 12/02/18 07:06 12/02/18 07:06 PT 12.5 Seconds (9.8-13.1) 12/01/18 03:04 INR 1.1 12/01/18 03:04 APTT 30.2 Seconds (25.6-37.1) 12/01/18 03:04 - Constitutional Appears: Non-toxic, No Acute Distress - Head Exam Head Exam: ATRAUMATIC, NORMOCEPHALIC - Extremities Exam Additional comments: Vasc: DP/PT pulses are non-palpable bilaterally, Cap refill time < 3 sec to all digits, TG warm to warm, +2 edema noted extending from foot proximally to the mid leg level bilaterally Ortho: Pain on palpation to legs, pain upon ROM bilateral LE. No pain on palpation of the calf b/l Neuro: Gross sensation intact, protective sensation absent Derm: RLE: Circular ulceration measuring approximately 5x4.5 extending into subcutaneous tissue noted to R heel with fibrous base, mild malodor, + serous drainage, no purulence appreciated. No tunneling or tracking appreciated. No probe to bone. LLE: DTI to left plantar heel, no open lesions, no drainage, no clinical signs of infection - Neurological Exam Neurological Exam: Alert, Awake, Oriented x3 - Psychiatric Exam Psychiatric exam: Normal Affect, Normal Mood Assessment and Plan - Assessment and Plan (Free Text) Assessment: 73 yo female patient, with bilateral lower extremity edema and R plantar ulcer ation. Plan: Patient seen and evaluated Discussed patient plan in detail with Dr. Smith Afebrile, absent leukocytosis Continue with IV abx per ID reccs Wound culture R plantar heel, pending Local wound care: R ulceration cleansed with Dakins solution and dressed with ABD, DSD Multipodus boots ordered, to be worn at all times while in bed Will continue to follow
[2018-12-04] MEDS: Insulin Regular 100 units/ml SC SCH ×3 (09:01→23:00)
--- NOTE | 2018-12-04 11:58 | CP.PCM.PN ---
<Carlos Dempsey - Last Filed: 12/04/18 23:45> Subjective - Date & Time of Evaluation Date of Evaluation: 12/04/18 Time of Evaluation: 11:49 - Subjective Subjective: Carlos Dempsey DO PGY1 - Internal Medicine [employer] - Cardiology Note for Dr. Jimenez Patient was seen and examined at bedside this morning prior to cath No acute events reported overnight Patient complaining of pleuritic cp Objective - Vital Signs/Intake and Output Vital Signs (last 24 hours): Temp Pulse Resp BP Pulse Ox 97.3 F L 65 20 108/66 100 12/04/18 08:16 12/04/18 08:16 12/04/18 08:16 12/04/18 08:16 12/04/18 08:16 - Medications Medications: Current Medications Acetaminophen (Tylenol 325mg Tab) 650 mg PO Q6 PRN PRN Reason: Pain, Mild (1-3) Last Admin: 12/03/18 08:48 Dose: 650 mg Albuterol/Ipratropium (Duoneb 3 Mg/0.5 Mg (3 Ml) Ud) 3 ml INH RQ6 [facility] Last Admin: 12/04/18 08:11 Dose: 3 ml Alprazolam (Xanax) 0.25 mg PO DAILY [facility] Stop: 12/08/18 09:01 Last Admin: 12/03/18 08:49 Dose: Not Given Aspirin (Ecotrin) 81 mg PO DAILY [facility] Last Admin: 12/04/18 08:59 Dose: 81 mg Atorvastatin Calcium (Lipitor) 80 mg PO DAILY [facility] Last Admin: 12/03/18 08:36 Dose: 80 mg Clopidogrel Bisulfate (Plavix) 75 mg PO DAILY [facility] Last Admin: 12/04/18 08:59 Dose: 75 mg Dextrose (Dextrose 50% Inj) 0 ml IV STAT PRN; Protocol PRN Reason: Hypoglycemia Protocol Dextrose (Glutose 15) 0 gm PO ONCE PRN; Protocol PRN Reason: Hypoglycemia Protocol Enoxaparin Sodium (Lovenox) 100 mg SC Q12 [facility]; Protocol Last Admin: 12/03/18 20:52 Dose: 100 mg Furosemide (Lasix) 40 mg IVP Q12 [facility] Last Admin: 12/03/18 20:52 Dose: 40 mg Gabapentin (Neurontin) 100 mg PO DAILY [facility] Last Admin: 12/03/18 08:37 Dose: 100 mg Glucagon (Glucagen Diagnostic Kit) 0 mg IM STAT PRN; Protocol PRN Reason: Hypoglycemia Protocol Piperacillin Sod/Tazobactam (Sod 3.375 gm/ Sodium Chloride) 100 mls @ 100 mls/hr IVPB Q8H [facility]; Protocol Last Admin: 12/04/18 06:06 Dose: 100 mls/hr Vancomycin HCl 1 gm/ Sodium (Chloride) 250 mls @ 166.667 mls/hr IVPB Q24H [facility]; Protocol Last Admin: 12/03/18 15:19 Dose: 166.667 mls/hr Insulin Detemir (Levemir) 8 units SC DAILY [facility] Last Admin: 12/03/18 09:16 Dose: 8 units Insulin Human Regular (Humulin R) 0 units SC ACHS [facility]; Protocol Last Admin: 12/04/18 09:01 Dose: Not Given Isosorbide Mononitrate (Imdur Er) 30 mg PO DAILY [facility] Last Admin: 12/03/18 08:33 Dose: 30 mg Lactic Acid (Lac-Hydrin 12% Lotion (225 G)) 1 applic TOP TID [facility] Last Admin: 12/03/18 16:19 Dose: 1 applic Lidocaine (Lidoderm) 1 ea TD DAILY [facility] Last Admin: 12/03/18 08:35 Dose: 1 ea Metoprolol Tartrate (Lopressor) 100 mg PO Q12 [facility] Last Admin: 12/04/18 08:59 Dose: 100 mg Montelukast Sodium (Singulair) 10 mg PO DAILY [facility] Last Admin: 12/03/18 08:37 Dose: 10 mg Pantoprazole Sodium (Protonix Ec Tab) 40 mg PO DAILY@0630 [facility] Last Admin: 12/04/18 06:06 Dose: 40 mg Spironolactone (Aldactone) 25 mg PO DAILY [facility] Last Admin: 12/03/18 08:33 Dose: 25 mg - Labs Labs: 12/02/18 07:06 12/02/18 07:06 PT 12.5 Seconds (9.8-13.1) 12/01/18 03:04 INR 1.1 12/01/18 03:04 APTT 30.2 Seconds (25.6-37.1) 12/01/18 03:04 - Constitutional Appears: Well, No Acute Distress - Head Exam Head Exam: ATRAUMATIC, NORMOCEPHALIC - Eye Exam Eye Exam: EOMI, PERRL - Respiratory Exam Additional comments: Diminished breath sounds bilaterally; Mild crackles heard of the bases bilaterally - Cardiovascular Exam Cardiovascular Exam: RRR, +S1, +S2 - GI/Abdominal Exam GI & Abdominal Exam: Soft, Normal Bowel Sounds - Extremities Exam Additional comments: 3+ pitting edema bilaterally RLE ulcer dressed; dressing CDI Assessment and Plan (1) Acute CHF (congestive heart failure) Status: Acute (2) Foot infection Status: Acute (3) HTN (hypertension) Status: Acute (4) PVD (peripheral vascular disease) Status: Acute - Assessment and Plan (Free Text) Assessment: continuing aspirin Plavix, imdur, Lasix beta norberto, spironolactone Tolerated cardiac cath well; Severe ; Aortic valve 0.64 Patent left main stent EF 25% Moderate pulm HTN Severe cardiomyopathy Further reccs per Dr. Jimenez <Rm Jimenez - Last Filed: 12/06/18 22:59> Objective - Vital Signs/Intake and Output Vital Signs (last 24 hours): Temp Pulse Resp BP Pulse Ox 98.1 F 75 20 112/70 97 12/06/18 20:37 12/06/18 21:25 12/06/18 20:37 12/06/18 21:25 12/06/18 20:37 Intake and Output: 12/06/18 12/07/18 18:59 06:59 Intake Total 960 Output Total 800 Balance 160 - Medications Medications: Current Medications Acetaminophen (Tylenol 325mg Tab) 650 mg PO Q6 PRN PRN Reason: Pain, Mild (1-3) Last Admin: 12/06/18 06:08 Dose: 650 mg Albuterol/Ipratropium (Duoneb 3 Mg/0.5 Mg (3 Ml) Ud) 3 ml INH RQ6 [facility] Last Admin: 12/06/18 19:15 Dose: 3 ml Alprazolam (Xanax) 0.25 mg PO DAILY [facility] Stop: 12/08/18 09:01 Last Admin: 12/06/18 08:46 Dose: Not Given Aspirin (Ecotrin) 81 mg PO DAILY [facility] Last Admin: 12/06/18 08:42 Dose: 81 mg Atorvastatin Calcium (Lipitor) 80 mg PO DAILY [facility] Last Admin: 12/06/18 08:38 Dose: 80 mg Bumetanide (Bumex) 1 mg IVP BID [facility] Last Admin: 12/06/18 16:40 Dose: 1 mg Clopidogrel Bisulfate (Plavix) 75 mg PO DAILY [facility] Last Admin: 12/06/18 08:39 Dose: 75 mg Dextrose (Dextrose 50% Inj) 0 ml IV STAT PRN; Protocol PRN Reason: Hypoglycemia Protocol Dextrose (Glutose 15) 0 gm PO ONCE PRN; Protocol PRN Reason: Hypoglycemia Protocol Enoxaparin Sodium (Lovenox) 40 mg SC DAILY [facility]; Protocol Gabapentin (Neurontin) 100 mg PO DAILY [facility] Last Admin: 12/06/18 08:46 Dose: 100 mg Glucagon (Glucagen Diagnostic Kit) 0 mg IM STAT PRN; Protocol PRN Reason: Hypoglycemia Protocol Piperacillin Sod/Tazobactam (Sod 3.375 gm/ Sodium Chloride) 100 mls @ 100 mls/hr IVPB Q8H [facility]; Protocol Last Admin: 12/06/18 21:20 Dose: 100 mls/hr Insulin Detemir (Levemir) 8 units SC DAILY [facility] Last Admin: 12/06/18 08:43 Dose: 8 units Insulin Human Regular (Humulin R) 0 units SC ACHS [facility]; Protocol Last Admin: 12/06/18 16:40 Dose: Not Given Lactic Acid (Lac-Hydrin 12% Lotion (225 G)) 1 applic TOP TID [facility] Last Admin: 12/06/18 16:41 Dose: Not Given Lidocaine (Lidoderm) 1 ea TD DAILY [facility] Last Admin: 12/06/18 08:43 Dose: Not Given Metolazone (Zaroxolyn) 5 mg PO DAILY [facility] Last Admin: 12/06/18 08:38 Dose: 5 mg Metoprolol Tartrate (Lopressor) 50 mg PO Q12 [facility] Last Admin: 12/06/18 21:25 Dose: 50 mg Montelukast Sodium (Singulair) 10 mg PO DAILY [facility] Last Admin: 12/06/18 08:39 Dose: 10 mg Pantoprazole Sodium (Protonix Ec Tab) 40 mg PO DAILY@0630 [facility] Last Admin: 12/06/18 06:08 Dose: 40 mg Spironolactone (Aldactone) 12.5 mg PO DAILY [facility] Last Admin: 12/06/18 08:39 Dose: 12.5 mg - Labs Labs: 12/06/18 09:29 12/06/18 09:29 PT 12.5 Seconds (9.8-13.1) 12/01/18 03:04 INR 1.1 12/01/18 03:04 APTT 30.2 Seconds (25.6-37.1) 12/01/18 03:04 Assessment and Plan (1) Elevated troponin Status: Acute (2) Acute CHF (congestive heart failure) Status: Acute (3) COPD (chronic obstructive pulmonary disease) Status: Acute (4) CAD (coronary artery disease) Status: Acute (5) Diabetic foot ulcer Status: Acute (6) Dyslipidemia Status: Acute (7) HTN (hypertension) Status: Acute (8) PVD (peripheral vascular disease) Status: Acute Attending/Attestation - Attestation I have personally seen and examined this patient.: Yes I have fully participated in the care of the patient.: Yes I have reviewed all pertinent clinical information, including history, physical exam and plan: Yes Notes (Text): 12/06/18 22:58 Elevated filling pressures Low CO Severe moderate pulmonary HTN will need aggresive preload reduction IV diuresis will eventually need to be evaluated for TAVR as outpt once compensated and euvolemic
[2018-12-04] MEDS: Lidocaine 5% Patch TD SCH (17:30)
[2018-12-04] MEDS: Insulin Detemir 100 Units/ml Inj SC SCH (17:30)
[2018-12-04] MEDS: Enoxaparin 100 mg Syringe SC SCH ×2 (17:31→21:43)
--- NOTE | 2018-12-04 21:33 | CP.PCM.PN ---
Subjective - Date & Time of Evaluation Date of Evaluation: 12/04/18 Time of Evaluation: 07:05 - Subjective Subjective: Going for Cardiac Catheter. No new complaint. Objective - Vital Signs/Intake and Output Vital Signs (last 24 hours): Temp Pulse Resp BP Pulse Ox 97.1 F L 66 20 115/55 L 100 12/04/18 19:49 12/04/18 19:49 12/04/18 19:49 12/04/18 19:49 12/04/18 19:49 - Medications Medications: Current Medications Acetaminophen (Tylenol 325mg Tab) 650 mg PO Q6 PRN PRN Reason: Pain, Mild (1-3) Last Admin: 12/03/18 08:48 Dose: 650 mg Albuterol/Ipratropium (Duoneb 3 Mg/0.5 Mg (3 Ml) Ud) 3 ml INH RQ6 [facility] Last Admin: 12/04/18 19:30 Dose: 3 ml Alprazolam (Xanax) 0.25 mg PO DAILY [facility] Stop: 12/08/18 09:01 Last Admin: 12/04/18 17:32 Dose: Not Given Aspirin (Ecotrin) 81 mg PO DAILY [facility] Last Admin: 12/04/18 08:59 Dose: 81 mg Atorvastatin Calcium (Lipitor) 80 mg PO DAILY [facility] Last Admin: 12/04/18 17:31 Dose: Not Given Clopidogrel Bisulfate (Plavix) 75 mg PO DAILY [facility] Last Admin: 12/04/18 08:59 Dose: 75 mg Dextrose (Dextrose 50% Inj) 0 ml IV STAT PRN; Protocol PRN Reason: Hypoglycemia Protocol Dextrose (Glutose 15) 0 gm PO ONCE PRN; Protocol PRN Reason: Hypoglycemia Protocol Enoxaparin Sodium (Lovenox) 100 mg SC Q12 [facility]; Protocol Last Admin: 12/04/18 17:31 Dose: Not Given Furosemide (Lasix) 40 mg IVP Q12 [facility] Last Admin: 12/04/18 17:30 Dose: Not Given Gabapentin (Neurontin) 100 mg PO DAILY [facility] Last Admin: 12/04/18 17:31 Dose: Not Given Glucagon (Glucagen Diagnostic Kit) 0 mg IM STAT PRN; Protocol PRN Reason: Hypoglycemia Protocol Piperacillin Sod/Tazobactam (Sod 3.375 gm/ Sodium Chloride) 100 mls @ 100 mls/hr IVPB Q8H [facility]; Protocol Last Admin: 12/04/18 17:32 Dose: Not Given Vancomycin HCl 1 gm/ Sodium (Chloride) 250 mls @ 166.667 mls/hr IVPB Q24H [facility]; Protocol Last Admin: 12/04/18 17:31 Dose: Not Given Insulin Detemir (Levemir) 8 units SC DAILY [facility] Last Admin: 12/04/18 17:30 Dose: Not Given Insulin Human Regular (Humulin R) 0 units SC ACHS [facility]; Protocol Last Admin: 12/04/18 17:29 Dose: Not Given Isosorbide Mononitrate (Imdur Er) 30 mg PO DAILY [facility] Last Admin: 12/04/18 17:30 Dose: Not Given Lactic Acid (Lac-Hydrin 12% Lotion (225 G)) 1 applic TOP TID [facility] Last Admin: 12/04/18 17:30 Dose: Not Given Lidocaine (Lidoderm) 1 ea TD DAILY [facility] Last Admin: 12/04/18 17:30 Dose: Not Given Metoprolol Tartrate (Lopressor) 100 mg PO Q12 [facility] Last Admin: 12/04/18 08:59 Dose: 100 mg Montelukast Sodium (Singulair) 10 mg PO DAILY [facility] Last Admin: 12/04/18 17:31 Dose: Not Given Pantoprazole Sodium (Protonix Ec Tab) 40 mg PO DAILY@0630 [facility] Last Admin: 12/04/18 06:06 Dose: 40 mg Spironolactone (Aldactone) 25 mg PO DAILY [facility] Last Admin: 12/04/18 17:29 Dose: Not Given - Labs Labs: 12/02/18 07:06 12/02/18 07:06 PT 12.5 Seconds (9.8-13.1) 12/01/18 03:04 INR 1.1 12/01/18 03:04 APTT 30.2 Seconds (25.6-37.1) 12/01/18 03:04 Assessment and Plan (1) Acute CHF (congestive heart failure) Status: Acute (2) Diabetic foot ulcer Status: Acute (3) Dyslipidemia Status: Acute (4) NSTEMI (non-ST elevated myocardial infarction) Status: Acute (5) Type 2 diabetes mellitus with diabetic foot infection Status: Acute (6) Uncontrolled diabetes mellitus Status: Acute (7) CAD (coronary artery disease) Status: Chronic (8) COPD (chronic obstructive pulmonary disease) Status: Chronic (9) Cardiomyopathy Status: Chronic (10) HTN (hypertension) Status: Chronic (11) PVD (peripheral vascular disease) Status: Chronic - Assessment and Plan (Free Text) Plan: For Cardiac Catheter today.
[2018-12-05] MEDS: Albuterol-Ipratrop 3 mg / 0.5 (3 ml) UD INH SCH ×4 (01:02→19:33)
[2018-12-05] MEDS: Piperacillin/Tazobact 3.375 GM in Sodium Chloride 0.9% 100 ML IVPB SCH ×3 (06:22→21:57)
[2018-12-05] MEDS: Pantoprazole 40 mg EC Tab PO SCH (06:22)
[2018-12-05] MEDS: Enoxaparin 100 mg Syringe SC SCH ×2 (09:32→21:55)
[2018-12-05] MEDS: Insulin Detemir 100 Units/ml Inj SC SCH (09:37)
[2018-12-05] MEDS: Lidocaine 5% Patch TD SCH ×2 (09:39→09:48)
[2018-12-05] MEDS: Insulin Regular 100 units/ml SC SCH ×4 (09:40→21:50)
--- NOTE | 2018-12-05 21:31 | CP.PCM.PN ---
<Carlos Dempsey - Last Filed: 12/05/18 21:28> Subjective - Date & Time of Evaluation Date of Evaluation: 12/05/18 Time of Evaluation: 09:00 - Subjective Subjective: Carlos Dempsey DO PGY1 - Internal Medicine [employer] - Cardiology Note for Dr. Jimenez Patient was seen and evaluated at bedside this morning; Patient reports some pain pleuritic pain w/ breathing / coughing. Patient also asking for BIPAP overnight; No further complaints voiced at bedside this morning. Objective - Vital Signs/Intake and Output Vital Signs (last 24 hours): Temp Pulse Resp BP Pulse Ox 97.4 F L 75 18 113/65 97 12/05/18 19:59 12/05/18 19:59 12/05/18 19:59 12/05/18 19:59 12/05/18 19:59 Intake and Output: 12/05/18 12/06/18 18:59 06:59 Intake Total 1210 Output Total 1000 Balance 210 - Medications Medications: Current Medications Acetaminophen (Tylenol 325mg Tab) 650 mg PO Q6 PRN PRN Reason: Pain, Mild (1-3) Last Admin: 12/03/18 08:48 Dose: 650 mg Albuterol/Ipratropium (Duoneb 3 Mg/0.5 Mg (3 Ml) Ud) 3 ml INH RQ6 [facility] Last Admin: 12/05/18 19:33 Dose: 3 ml Alprazolam (Xanax) 0.25 mg PO DAILY [facility] Stop: 12/08/18 09:01 Last Admin: 12/05/18 09:41 Dose: Not Given Aspirin (Ecotrin) 81 mg PO DAILY [facility] Last Admin: 12/05/18 09:36 Dose: 81 mg Atorvastatin Calcium (Lipitor) 80 mg PO DAILY [facility] Last Admin: 12/05/18 09:35 Dose: 80 mg Clopidogrel Bisulfate (Plavix) 75 mg PO DAILY [facility] Last Admin: 12/05/18 09:36 Dose: 75 mg Dextrose (Dextrose 50% Inj) 0 ml IV STAT PRN; Protocol PRN Reason: Hypoglycemia Protocol Dextrose (Glutose 15) 0 gm PO ONCE PRN; Protocol PRN Reason: Hypoglycemia Protocol Furosemide (Lasix) 40 mg IVP Q12 [facility] Last Admin: 12/05/18 09:35 Dose: 40 mg Gabapentin (Neurontin) 100 mg PO DAILY [facility] Last Admin: 12/05/18 09:35 Dose: 100 mg Glucagon (Glucagen Diagnostic Kit) 0 mg IM STAT PRN; Protocol PRN Reason: Hypoglycemia Protocol Piperacillin Sod/Tazobactam (Sod 3.375 gm/ Sodium Chloride) 100 mls @ 100 mls/hr IVPB Q8H [facility]; Protocol Last Admin: 12/05/18 14:01 Dose: 100 mls/hr Insulin Detemir (Levemir) 8 units SC DAILY [facility] Last Admin: 12/05/18 09:37 Dose: 8 units Insulin Human Regular (Humulin R) 0 units SC ACHS [facility]; Protocol Last Admin: 12/05/18 17:00 Dose: 4 units Lactic Acid (Lac-Hydrin 12% Lotion (225 G)) 1 applic TOP TID [facility] Last Admin: 12/05/18 17:01 Dose: Not Given Lidocaine (Lidoderm) 1 ea TD DAILY [facility] Last Admin: 12/05/18 09:48 Dose: Not Given Metolazone (Zaroxolyn) 5 mg PO DAILY [facility] Metoprolol Tartrate (Lopressor) 50 mg PO Q12 [facility] Montelukast Sodium (Singulair) 10 mg PO DAILY [facility] Last Admin: 12/05/18 09:34 Dose: 10 mg Pantoprazole Sodium (Protonix Ec Tab) 40 mg PO DAILY@0630 [facility] Last Admin: 12/05/18 06:22 Dose: 40 mg Spironolactone (Aldactone) 12.5 mg PO DAILY [facility] - Labs Labs: 12/02/18 07:06 12/02/18 07:06 PT 12.5 Seconds (9.8-13.1) 12/01/18 03:04 INR 1.1 12/01/18 03:04 APTT 30.2 Seconds (25.6-37.1) 12/01/18 03:04 - Constitutional Appears: Well, No Acute Distress - Head Exam Head Exam: ATRAUMATIC, NORMOCEPHALIC - Eye Exam Eye Exam: EOMI, PERRL - Respiratory Exam Additional comments: RML/RLL + LLL Dimished; Crackles appreciated - Cardiovascular Exam Cardiovascular Exam: RRR, +S1, +S2 - GI/Abdominal Exam GI & Abdominal Exam: Soft, Normal Bowel Sounds - Extremities Exam Additional comments: 3+ pitting edema bilaterally RLE ulcer dressed; dressing CDI Assessment and Plan (1) Acute CHF (congestive heart failure) Status: Acute (2) Foot infection Status: Acute (3) HTN (hypertension) Status: Acute (4) PVD (peripheral vascular disease) Status: Acute - Assessment and Plan (Free Text) Plan: Severe Cardiomyopathy; Aggressive Dialysis Start Zaroxylyn 5 QD Cont Lasix 40 IVP BID Decrease Lopressor to 50 Q12 Start Aldactone 12.5 DC Imdur Medically Manage Severe Start Bipap C/w ASA/Plavix Tolerated cardiac cath well; Severe ; Aortic valve 0.64 Patent left main stent EF 25% Moderate pulm HTN Severe cardiomyopathy <Rm Jimenez - Last Filed: 12/06/18 23:00> Objective - Vital Signs/Intake and Output Vital Signs (last 24 hours): Temp Pulse Resp BP Pulse Ox 98.1 F 75 20 112/70 97 12/06/18 20:37 12/06/18 21:25 12/06/18 20:37 12/06/18 21:25 12/06/18 20:37 Intake and Output: 12/06/18 12/07/18 18:59 06:59 Intake Total 960 Output Total 800 Balance 160 - Medications Medications: Current Medications Acetaminophen (Tylenol 325mg Tab) 650 mg PO Q6 PRN PRN Reason: Pain, Mild (1-3) Last Admin: 12/06/18 06:08 Dose: 650 mg Albuterol/Ipratropium (Duoneb 3 Mg/0.5 Mg (3 Ml) Ud) 3 ml INH RQ6 [facility] Last Admin: 12/06/18 19:15 Dose: 3 ml Alprazolam (Xanax) 0.25 mg PO DAILY [facility] Stop: 12/08/18 09:01 Last Admin: 12/06/18 08:46 Dose: Not Given Aspirin (Ecotrin) 81 mg PO DAILY [facility] Last Admin: 12/06/18 08:42 Dose: 81 mg Atorvastatin Calcium (Lipitor) 80 mg PO DAILY [facility] Last Admin: 12/06/18 08:38 Dose: 80 mg Bumetanide (Bumex) 1 mg IVP BID [facility] Last Admin: 12/06/18 16:40 Dose: 1 mg Clopidogrel Bisulfate (Plavix) 75 mg PO DAILY [facility] Last Admin: 12/06/18 08:39 Dose: 75 mg Dextrose (Dextrose 50% Inj) 0 ml IV STAT PRN; Protocol PRN Reason: Hypoglycemia Protocol Dextrose (Glutose 15) 0 gm PO ONCE PRN; Protocol PRN Reason: Hypoglycemia Protocol Enoxaparin Sodium (Lovenox) 40 mg SC DAILY [facility]; Protocol Gabapentin (Neurontin) 100 mg PO DAILY [facility] Last Admin: 12/06/18 08:46 Dose: 100 mg Glucagon (Glucagen Diagnostic Kit) 0 mg IM STAT PRN; Protocol PRN Reason: Hypoglycemia Protocol Piperacillin Sod/Tazobactam (Sod 3.375 gm/ Sodium Chloride) 100 mls @ 100 mls/hr IVPB Q8H [facility]; Protocol Last Admin: 12/06/18 21:20 Dose: 100 mls/hr Insulin Detemir (Levemir) 8 units SC DAILY [facility] Last Admin: 12/06/18 08:43 Dose: 8 units Insulin Human Regular (Humulin R) 0 units SC ACHS [facility]; Protocol Last Admin: 12/06/18 16:40 Dose: Not Given Lactic Acid (Lac-Hydrin 12% Lotion (225 G)) 1 applic TOP TID [facility] Last Admin: 12/06/18 16:41 Dose: Not Given Lidocaine (Lidoderm) 1 ea TD DAILY [facility] Last Admin: 12/06/18 08:43 Dose: Not Given Metolazone (Zaroxolyn) 5 mg PO DAILY [facility] Last Admin: 12/06/18 08:38 Dose: 5 mg Metoprolol Tartrate (Lopressor) 50 mg PO Q12 [facility] Last Admin: 12/06/18 21:25 Dose: 50 mg Montelukast Sodium (Singulair) 10 mg PO DAILY [facility] Last Admin: 12/06/18 08:39 Dose: 10 mg Pantoprazole Sodium (Protonix Ec Tab) 40 mg PO DAILY@0630 [facility] Last Admin: 12/06/18 06:08 Dose: 40 mg Spironolactone (Aldactone) 12.5 mg PO DAILY [facility] Last Admin: 12/06/18 08:39 Dose: 12.5 mg - Labs Labs: 12/06/18 09:29 12/06/18 09:29 PT 12.5 Seconds (9.8-13.1) 12/01/18 03:04 INR 1.1 12/01/18 03:04 APTT 30.2 Seconds (25.6-37.1) 12/01/18 03:04 Assessment and Plan (1) Elevated troponin Status: Acute (2) Acute CHF (congestive heart failure) Status: Acute (3) COPD (chronic obstructive pulmonary disease) Status: Acute (4) CAD (coronary artery disease) Status: Acute (5) Diabetic foot ulcer Status: Acute (6) Dyslipidemia Status: Acute (7) HTN (hypertension) Status: Acute (8) PVD (peripheral vascular disease) Status: Acute Attending/Attestation - Attestation I have personally seen and examined this patient.: Yes I have fully participated in the care of the patient.: Yes I have reviewed all pertinent clinical information, including history, physical exam and plan: Yes Notes (Text): 12/06/18 23:00 meds titrated for optimization of CHF as noted in residents note
--- NOTE | 2018-12-05 21:58 | CP.PCM.PN ---
Subjective - Date & Time of Evaluation Date of Evaluation: 12/05/18 Time of Evaluation: 16:50 - Subjective Subjective: Seen and examined at the bed side. S/P Cardiac Catheterization which showed CAD, Severe Cardiomyopathy with EF 25% and Severe Aortic Stenosis. Grinder Hand recommended Medical Management. Objective - Vital Signs/Intake and Output Vital Signs (last 24 hours): Temp Pulse Resp BP Pulse Ox 97.4 F L 75 18 117/69 97 12/05/18 19:59 12/05/18 19:59 12/05/18 19:59 12/05/18 21:55 12/05/18 19:59 Intake and Output: 12/05/18 12/06/18 18:59 06:59 Intake Total 1210 Output Total 1000 Balance 210 - Medications Medications: Current Medications Acetaminophen (Tylenol 325mg Tab) 650 mg PO Q6 PRN PRN Reason: Pain, Mild (1-3) Last Admin: 12/03/18 08:48 Dose: 650 mg Albuterol/Ipratropium (Duoneb 3 Mg/0.5 Mg (3 Ml) Ud) 3 ml INH RQ6 [facility] Last Admin: 12/05/18 19:33 Dose: 3 ml Alprazolam (Xanax) 0.25 mg PO DAILY [facility] Stop: 12/08/18 09:01 Last Admin: 12/05/18 09:41 Dose: Not Given Aspirin (Ecotrin) 81 mg PO DAILY [facility] Last Admin: 12/05/18 09:36 Dose: 81 mg Atorvastatin Calcium (Lipitor) 80 mg PO DAILY [facility] Last Admin: 12/05/18 09:35 Dose: 80 mg Clopidogrel Bisulfate (Plavix) 75 mg PO DAILY [facility] Last Admin: 12/05/18 09:36 Dose: 75 mg Dextrose (Dextrose 50% Inj) 0 ml IV STAT PRN; Protocol PRN Reason: Hypoglycemia Protocol Dextrose (Glutose 15) 0 gm PO ONCE PRN; Protocol PRN Reason: Hypoglycemia Protocol Furosemide (Lasix) 40 mg IVP Q12 [facility] Last Admin: 12/05/18 21:55 Dose: 40 mg Gabapentin (Neurontin) 100 mg PO DAILY [facility] Last Admin: 12/05/18 09:35 Dose: 100 mg Glucagon (Glucagen Diagnostic Kit) 0 mg IM STAT PRN; Protocol PRN Reason: Hypoglycemia Protocol Piperacillin Sod/Tazobactam (Sod 3.375 gm/ Sodium Chloride) 100 mls @ 100 mls /hr IVPB Q8H [facility]; Protocol Last Admin: 12/05/18 21:57 Dose: 100 mls/hr Insulin Detemir (Levemir) 8 units SC DAILY [facility] Last Admin: 12/05/18 09:37 Dose: 8 units Insulin Human Regular (Humulin R) 0 units SC ACHS [facility]; Protocol Last Admin: 12/05/18 21:50 Dose: Not Given Lactic Acid (Lac-Hydrin 12% Lotion (225 G)) 1 applic TOP TID [facility] Last Admin: 12/05/18 17:01 Dose: Not Given Lidocaine (Lidoderm) 1 ea TD DAILY [facility] Last Admin: 12/05/18 09:48 Dose: Not Given Metolazone (Zaroxolyn) 5 mg PO DAILY [facility] Metoprolol Tartrate (Lopressor) 50 mg PO Q12 [facility] Montelukast Sodium (Singulair) 10 mg PO DAILY [facility] Last Admin: 12/05/18 09:34 Dose: 10 mg Pantoprazole Sodium (Protonix Ec Tab) 40 mg PO DAILY@0630 [facility] Last Admin: 12/05/18 06:22 Dose: 40 mg Spironolactone (Aldactone) 12.5 mg PO DAILY [facility] - Labs Labs: 12/02/18 07:06 12/02/18 07:06 PT 12.5 Seconds (9.8-13.1) 12/01/18 03:04 INR 1.1 12/01/18 03:04 APTT 30.2 Seconds (25.6-37.1) 12/01/18 03:04 Assessment and Plan (1) Acute CHF (congestive heart failure) Status: Acute (2) Diabetic foot ulcer Status: Acute (3) Foot infection Status: Acute (4) NSTEMI (non-ST elevated myocardial infarction) Status: Acute (5) COPD (chronic obstructive pulmonary disease) Status: Chronic (6) Cardiomyopathy Status: Chronic (7) Dyslipidemia Status: Chronic (8) HTN (hypertension) Status: Chronic (9) NSTEMI (non-ST elevated myocardial infarction) Status: Chronic (10) PVD (peripheral vascular disease) Status: Chronic (11) Severe aortic stenosis Status: Chronic (12) 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
[2018-12-06] MEDS: Albuterol-Ipratrop 3 mg / 0.5 (3 ml) UD INH SCH ×4 (01:00→19:15)
[2018-12-06] MEDS: Piperacillin/Tazobact 3.375 GM in Sodium Chloride 0.9% 100 ML IVPB SCH ×4 (05:45→22:24)
[2018-12-06] MEDS: Pantoprazole 40 mg EC Tab PO SCH (06:08)
--- NOTE | 2018-12-06 07:08 | CP.PCM.PN ---
Subjective - Date & Time of Evaluation Date of Evaluation: 12/06/18 Time of Evaluation: 07:08 - Subjective Subjective: Podiatry Consult note for Dr. Smith: 73 yo female patient seen and evaluated at bedside for bilateral lower extremity edema and R plantar ulcerations. Patient states that she continues to have SOB and difficultly with breathing if she lays down. She denies any acute pedal complaints at this time. Denies N/V/F/CP. Objective - Vital Signs/Intake and Output Vital Signs (last 24 hours): Temp Pulse Resp BP Pulse Ox 98.2 F 80 16 110/67 100 12/06/18 00:58 12/06/18 00:58 12/06/18 00:58 12/06/18 00:58 12/06/18 00:58 Intake and Output: 12/06/18 12/06/18 06:59 18:59 Intake Total 1210 Output Total 1000 Balance 210 - Medications Medications: Current Medications Acetaminophen (Tylenol 325mg Tab) 650 mg PO Q6 PRN PRN Reason: Pain, Mild (1-3) Last Admin: 12/06/18 06:08 Dose: 650 mg Albuterol/Ipratropium (Duoneb 3 Mg/0.5 Mg (3 Ml) Ud) 3 ml INH RQ6 [facility] Last Admin: 12/06/18 01:00 Dose: 3 ml Alprazolam (Xanax) 0.25 mg PO DAILY [facility] Stop: 12/08/18 09:01 Last Admin: 12/05/18 09:41 Dose: Not Given Aspirin (Ecotrin) 81 mg PO DAILY [facility] Last Admin: 12/05/18 09:36 Dose: 81 mg Atorvastatin Calcium (Lipitor) 80 mg PO DAILY [facility] Last Admin: 12/05/18 09:35 Dose: 80 mg Clopidogrel Bisulfate (Plavix) 75 mg PO DAILY [facility] Last Admin: 12/05/18 09:36 Dose: 75 mg Dextrose (Dextrose 50% Inj) 0 ml IV STAT PRN; Protocol PRN Reason: Hypoglycemia Protocol Dextrose (Glutose 15) 0 gm PO ONCE PRN; Protocol PRN Reason: Hypoglycemia Protocol Furosemide (Lasix) 40 mg IVP Q12 [facility] Last Admin: 12/05/18 21:55 Dose: 40 mg Gabapentin (Neurontin) 100 mg PO DAILY [facility] Last Admin: 12/05/18 09:35 Dose: 100 mg Glucagon (Glucagen Diagnostic Kit) 0 mg IM STAT PRN; Protocol PRN Reason: Hypoglycemia Protocol Piperacillin Sod/Tazobactam (Sod 3.375 gm/ Sodium Chloride) 100 mls @ 100 mls/hr IVPB Q8H [facility]; Protocol Last Admin: 12/06/18 05:45 Dose: 100 mls/hr Insulin Detemir (Levemir) 8 units SC DAILY [facility] Last Admin: 12/05/18 09:37 Dose: 8 units Insulin Human Regular (Humulin R) 0 units SC ACHS [facility]; Protocol Last Admin: 12/05/18 21:50 Dose: Not Given Lactic Acid (Lac-Hydrin 12% Lotion (225 G)) 1 applic TOP TID [facility] Last Admin: 12/05/18 17:01 Dose: Not Given Lidocaine (Lidoderm) 1 ea TD DAILY [facility] Last Admin: 12/05/18 09:48 Dose: Not Given Metolazone (Zaroxolyn) 5 mg PO DAILY [facility] Metoprolol Tartrate (Lopressor) 50 mg PO Q12 [facility] Last Admin: 12/05/18 21:59 Dose: 50 mg Montelukast Sodium (Singulair) 10 mg PO DAILY [facility] Last Admin: 12/05/18 09:34 Dose: 10 mg Pantoprazole Sodium (Protonix Ec Tab) 40 mg PO DAILY@0630 [facility] Last Admin: 12/06/18 06:08 Dose: 40 mg Spironolactone (Aldactone) 12.5 mg PO DAILY [facility] - Labs Labs: 12/02/18 07:06 12/02/18 07:06 PT 12.5 Seconds (9.8-13.1) 12/01/18 03:04 INR 1.1 12/01/18 03:04 APTT 30.2 Seconds (25.6-37.1) 12/01/18 03:04 - Constitutional Appears: Non-toxic, No Acute Distress - Head Exam Head Exam: ATRAUMATIC, NORMOCEPHALIC - Extremities Exam Additional comments: Vasc: DP/PT pulses are non-palpable bilaterally, Cap refill time < 3 sec to all digits, TG warm to warm, +2 edema noted extending from foot proximally to the mid leg level bilaterally Ortho: Pain on palpation to legs, pain upon ROM bilateral LE. No pain on palpation of the calf b/l Neuro: Gross sensation intact, protective sensation absent Derm: RLE: Circular ulceration, stage 3, measuring approximately 5.0 x4.5cm x 1cm, extending into subcutaneous tissue noted to R heel with fibrous base, mild malodor, + serous drainage, no purulence appreciated. No tunneling or tracking appreciated. No probe to bone. Additional ulceration, stage 2, measuring approximately 1cm x 1cm x .1 cm noted to the plantar aspect of hallux. LLE: DTI to left plantar heel, stage 0, no open lesions, no drainage, no clinical signs of infection - Neurological Exam Neurological Exam: Alert, Awake, Oriented x3 - Psychiatric Exam Psychiatric exam: Normal Affect, Normal Mood Assessment and Plan - Assessment and Plan (Free Text) Assessment: 73 yo female patient, with bilateral lower extremity edema and R plantar ulceration secondary to pressure and edema Plan: Patient seen and evaluated Discussed patient plan in detail with Dr. Smith VSS Continue with IV abx per ID reccs; Zosyn Wound culture R plantar heel, pending Local wound care: R ulceration cleansed with Dakins solution and dressed with betadine, ABD, DSD; L plantar DTI dressed with allevyn pad Multipodus boots ordered, to be worn at all times while in bed Will continue to follow
--- NOTE | 2018-12-06 07:08 | CP.PCM.PN ---
Subjective - Date & Time of Evaluation Date of Evaluation: 12/06/18 Time of Evaluation: 07:08 Objective - Vital Signs/Intake and Output Vital Signs (last 24 hours): Temp Pulse Resp BP Pulse Ox 98.2 F 80 16 110/67 100 12/06/18 00:58 12/06/18 00:58 12/06/18 00:58 12/06/18 00:58 12/06/18 00:58 Intake and Output: 12/06/18 12/06/18 06:59 18:59 Intake Total 1210 Output Total 1000 Balance 210 - Medications Medications: Current Medications Acetaminophen (Tylenol 325mg Tab) 650 mg PO Q6 PRN PRN Reason: Pain, Mild (1-3) Last Admin: 12/06/18 06:08 Dose: 650 mg Albuterol/Ipratropium (Duoneb 3 Mg/0.5 Mg (3 Ml) Ud) 3 ml INH RQ6 [facility] Last Admin: 12/06/18 01:00 Dose: 3 ml Alprazolam (Xanax) 0.25 mg PO DAILY [facility] Stop: 12/08/18 09:01 Last Admin: 12/05/18 09:41 Dose: Not Given Aspirin (Ecotrin) 81 mg PO DAILY [facility] Last Admin: 12/05/18 09:36 Dose: 81 mg Atorvastatin Calcium (Lipitor) 80 mg PO DAILY [facility] Last Admin: 12/05/18 09:35 Dose: 80 mg Clopidogrel Bisulfate (Plavix) 75 mg PO DAILY [facility] Last Admin: 12/05/18 09:36 Dose: 75 mg Dextrose (Dextrose 50% Inj) 0 ml IV STAT PRN; Protocol PRN Reason: Hypoglycemia Protocol Dextrose (Glutose 15) 0 gm PO ONCE PRN; Protocol PRN Reason: Hypoglycemia Protocol Furosemide (Lasix) 40 mg IVP Q12 [facility] Last Admin: 12/05/18 21:55 Dose: 40 mg Gabapentin (Neurontin) 100 mg PO DAILY [facility] Last Admin: 12/05/18 09:35 Dose: 100 mg Glucagon (Glucagen Diagnostic Kit) 0 mg IM STAT PRN; Protocol PRN Reason: Hypoglycemia Protocol Piperacillin Sod/Tazobactam (Sod 3.375 gm/ Sodium Chloride) 100 mls @ 100 mls/hr IVPB Q8H [facility]; Protocol Last Admin: 12/06/18 05:45 Dose: 100 mls/hr Insulin Detemir (Levemir) 8 units SC DAILY [facility] Last Admin: 12/05/18 09:37 Dose: 8 units Insulin Human Regular (Humulin R) 0 units SC [facility]; Protocol Last Admin: 12/05/18 21:50 Dose: Not Given Lactic Acid (Lac-Hydrin 12% Lotion (225 G)) 1 applic TOP TID [facility] Last Admin: 12/05/18 17:01 Dose: Not Given Lidocaine (Lidoderm) 1 ea TD DAILY [facility] Last Admin: 12/05/18 09:48 Dose: Not Given Metolazone (Zaroxolyn) 5 mg PO DAILY [facility] Metoprolol Tartrate (Lopressor) 50 mg PO Q12 [facility] Last Admin: 12/05/18 21:59 Dose: 50 mg Montelukast Sodium (Singulair) 10 mg PO DAILY [facility] Last Admin: 12/05/18 09:34 Dose: 10 mg Pantoprazole Sodium (Protonix Ec Tab) 40 mg PO DAILY@0630 [facility] Last Admin: 12/06/18 06:08 Dose: 40 mg Spironolactone (Aldactone) 12.5 mg PO DAILY [facility] - Labs Labs: 12/02/18 07:06 12/02/18 07:06 PT 12.5 Seconds (9.8-13.1) 12/01/18 03:04 INR 1.1 12/01/18 03:04 APTT 30.2 Seconds (25.6-37.1) 12/01/18 03:04
[2018-12-06] MEDS: Insulin Regular 100 units/ml SC SCH ×4 (07:33→22:00)
[2018-12-06] MEDS: metOLazone 5 MG TAB PO SCH (08:38)
[2018-12-06] MEDS: Lidocaine 5% Patch TD SCH (08:43)
[2018-12-06] MEDS: Insulin Detemir 100 Units/ml Inj SC SCH (08:43)
[2018-12-06 09:38] LABS: MEAN CELL VOLUME 90.3 fl (81.0-99.0); MEAN CORPUSCULAR HEMOGLOBIN 29.2 pg (27.0-31.0); MEAN CORPUSCULAR HGB CONC 32.3 g/dL (33.0-37.0); RBC 2.75 Mil/uL (3.80-5.20); RED CELL DISTRIBUTION WIDTH 16.6 % (11.5-14.5); WHITE BLOOD COUNT 6.6 K/uL (4.8-10.8)
[2018-12-06 09:49] LABS: BLOOD UREA NITROGEN 22 mg/dl (7-17); CALCIUM 8.7 mg/dL (8.4-10.2); GFR NON-AFRICAN AMERICAN > 60
--- NOTE | 2018-12-06 20:55 | CP.PCM.PN ---
<Carlos Dempsey - Last Filed: 12/06/18 20:49> Subjective - Date & Time of Evaluation Date of Evaluation: 12/06/18 Time of Evaluation: 11:00 - Subjective Subjective: Carlos Dempsey DO PGY1 - Internal Medicine Professor Of Sociology - Cardiology Note for Dr. Jimenez Pt. seen at bedside this morning No acute events reported overnight Patient continues to complain of pleuritic chest pain at this time; described as a bilateral stabbing sensation. Objective - Vital Signs/Intake and Output Vital Signs (last 24 hours): Temp Pulse Resp BP Pulse Ox 98.1 F 75 20 112/70 97 12/06/18 20:37 12/06/18 20:37 12/06/18 20:37 12/06/18 20:37 12/06/18 20:37 Intake and Output: 12/06/18 12/07/18 18:59 06:59 Intake Total 960 Output Total 800 Balance 160 - Medications Medications: Current Medications Acetaminophen (Tylenol 325mg Tab) 650 mg PO Q6 PRN PRN Reason: Pain, Mild (1-3) Last Admin: 12/06/18 06:08 Dose: 650 mg Albuterol/Ipratropium (Duoneb 3 Mg/0.5 Mg (3 Ml) Ud) 3 ml INH RQ6 [facility] Last Admin: 12/06/18 19:15 Dose: 3 ml Alprazolam (Xanax) 0.25 mg PO DAILY [facility] Stop: 12/08/18 09:01 Last Admin: 12/06/18 08:46 Dose: Not Given Aspirin (Ecotrin) 81 mg PO DAILY [facility] Last Admin: 12/06/18 08:42 Dose: 81 mg Atorvastatin Calcium (Lipitor) 80 mg PO DAILY [facility] Last Admin: 12/06/18 08:38 Dose: 80 mg Bumetanide (Bumex) 1 mg IVP BID [facility] Last Admin: 12/06/18 16:40 Dose: 1 mg Clopidogrel Bisulfate (Plavix) 75 mg PO DAILY [facility] Last Admin: 12/06/18 08:39 Dose: 75 mg Dextrose (Dextrose 50% Inj) 0 ml IV STAT PRN; Protocol PRN Reason: Hypoglycemia Protocol Dextrose (Glutose 15) 0 gm PO ONCE PRN; Protocol PRN Reason: Hypoglycemia Protocol Enoxaparin Sodium (Lovenox) 40 mg SC DAILY [facility]; Protocol Gabapentin (Neurontin) 100 mg PO DAILY [facility] Last Admin: 12/06/18 08:46 Dose: 100 mg Glucagon (Glucagen Diagnostic Kit) 0 mg IM STAT PRN; Protocol PRN Reason: Hypoglycemia Protocol Piperacillin Sod/Tazobactam (Sod 3.375 gm/ Sodium Chloride) 100 mls @ 100 mls/h r IVPB Q8H [facility]; Protocol Last Admin: 12/06/18 14:57 Dose: 100 mls/hr Insulin Detemir (Levemir) 8 units SC DAILY [facility] Last Admin: 12/06/18 08:43 Dose: 8 units Insulin Human Regular (Humulin R) 0 units SC ACHS [facility]; Protocol Last Admin: 12/06/18 16:40 Dose: Not Given Lactic Acid (Lac-Hydrin 12% Lotion (225 G)) 1 applic TOP TID [facility] Last Admin: 12/06/18 16:41 Dose: Not Given Lidocaine (Lidoderm) 1 ea TD DAILY [facility] Last Admin: 12/06/18 08:43 Dose: Not Given Metolazone (Zaroxolyn) 5 mg PO DAILY [facility] Last Admin: 12/06/18 08:38 Dose: 5 mg Metoprolol Tartrate (Lopressor) 50 mg PO Q12 [facility] Last Admin: 12/06/18 08:49 Dose: 50 mg Montelukast Sodium (Singulair) 10 mg PO DAILY [facility] Last Admin: 12/06/18 08:39 Dose: 10 mg Pantoprazole Sodium (Protonix Ec Tab) 40 mg PO DAILY@0630 [facility] Last Admin: 12/06/18 06:08 Dose: 40 mg Spironolactone (Aldactone) 12.5 mg PO DAILY [facility] Last Admin: 12/06/18 08:39 Dose: 12.5 mg - Labs Labs: 12/06/18 09:29 12/06/18 09:29 PT 12.5 Seconds (9.8-13.1) 12/01/18 03:04 INR 1.1 12/01/18 03:04 APTT 30.2 Seconds (25.6-37.1) 12/01/18 03:04 - Constitutional Appears: Well, No Acute Distress - Head Exam Head Exam: ATRAUMATIC, NORMOCEPHALIC - Eye Exam Eye Exam: EOMI, PERRL - Respiratory Exam Additional comments: RML/RLL + LLL Dimished; Crackles appreciated - Cardiovascular Exam Cardiovascular Exam: RRR, +S1, +S2 - GI/Abdominal Exam GI & Abdominal Exam: Soft, Normal Bowel Sounds - Extremities Exam Additional comments: 3+ pitting edema bilaterally RLE ulcer dressed; dressing CDI Assessment and Plan (1) Acute CHF (congestive heart failure) Status: Acute (2) Foot infection Status: Acute (3) HTN (hypertension) Status: Acute (4) PVD (peripheral vascular disease) Status: Acute - Assessment and Plan (Free Text) Plan: Severe Cardiomyopathy; Aggressive Dialysis Stop Lasix 40 IVP BID Start Bumex 1mg BID C/w Zaroxylyn 5 QD C/w Lopressor to 50 Q12 C/w Aldactone 12.5 [place] [id number] [id number] [place] adm Medically Manage Severe Did not receiv Bipap ON; Will ensure patient gets BiPAP tonight C/w ASA/Plavix Cardiac Cath results Severe ; Aortic valve 0.64 Patent left main stent EF 25% Moderate pulm HTN Severe cardiomyopathy <Rm Jimenez - Last Filed: 12/06/18 23:01> Objective - Vital Signs/Intake and Output Vital Signs (last 24 hours): Temp Pulse Resp BP Pulse Ox 98.1 F 75 20 112/70 97 12/06/18 20:37 12/06/18 21:25 12/06/18 20:37 12/06/18 21:25 12/06/18 20:37 Intake and Output: 12/06/18 12/07/18 18:59 06:59 Intake Total 960 Output Total 800 Balance 160 - Medications Medications: Current Medications Acetaminophen (Tylenol 325mg Tab) 650 mg PO Q6 PRN PRN Reason: Pain, Mild (1-3) Last Admin: 12/06/18 06:08 Dose: 650 mg Albuterol/Ipratropium (Duoneb 3 Mg/0.5 Mg (3 Ml) Ud) 3 ml INH RQ6 [facility] Last Admin: 12/06/18 19:15 Dose: 3 ml Alprazolam (Xanax) 0.25 mg PO DAILY [facility] Stop: 12/08/18 09:01 Last Admin: 12/06/18 08:46 Dose: Not Given Aspirin (Ecotrin) 81 mg PO DAILY [facility] Last Admin: 12/06/18 08:42 Dose: 81 mg Atorvastatin Calcium (Lipitor) 80 mg PO DAILY [facility] Last Admin: 12/06/18 08:38 Dose: 80 mg Bumetanide (Bumex) 1 mg IVP BID [facility] Last Admin: 12/06/18 16:40 Dose: 1 mg Clopidogrel Bisulfate (Plavix) 75 mg PO DAILY [facility] Last Admin: 12/06/18 08:39 Dose: 75 mg Dextrose (Dextrose 50% Inj) 0 ml IV STAT PRN; Protocol PRN Reason: Hypoglycemia Protocol Dextrose (Glutose 15) 0 gm PO ONCE PRN; Protocol PRN Reason: Hypoglycemia Protocol Enoxaparin Sodium (Lovenox) 40 mg SC DAILY [facility]; Protocol Gabapentin (Neurontin) 100 mg PO DAILY [facility] Last Admin: 12/06/18 08:46 Dose: 100 mg Glucagon (Glucagen Diagnostic Kit) 0 mg IM STAT PRN; Protocol PRN Reason: Hypoglycemia Protocol Piperacillin Sod/Tazobactam (Sod 3.375 gm/ Sodium Chloride) 100 mls @ 100 mls/hr IVPB Q8H [facility]; Protocol Last Admin: 12/06/18 21:20 Dose: 100 mls/hr Insulin Detemir (Levemir) 8 units SC DAILY [facility] Last Admin: 12/06/18 08:43 Dose: 8 units Insulin Human Regular (Humulin R) 0 units SC ACHS [facility]; Protocol Last Admin: 12/06/18 16:40 Dose: Not Given Lactic Acid (Lac-Hydrin 12% Lotion (225 G)) 1 applic TOP TID [facility] Last Admin: 12/06/18 16:41 Dose: Not Given Lidocaine (Lidoderm) 1 ea TD DAILY [facility] Last Admin: 12/06/18 08:43 Dose: Not Given Metolazone (Zaroxolyn) 5 mg PO DAILY [facility] Last Admin: 12/06/18 08:38 Dose: 5 mg Metoprolol Tartrate (Lopressor) 50 mg PO Q12 [facility] Last Admin: 12/06/18 21:25 Dose: 50 mg Montelukast Sodium (Singulair) 10 mg PO DAILY [facility] Last Admin: 12/06/18 08:39 Dose: 10 mg Pantoprazole Sodium (Protonix Ec Tab) 40 mg PO DAILY@0630 [facility] Last Admin: 12/06/18 06:08 Dose: 40 mg Spironolactone (Aldactone) 12.5 mg PO DAILY [facility] Last Admin: 12/06/18 08:39 Dose: 12.5 mg - Labs Labs: 12/06/18 09:29 12/06/18 09:29 PT 12.5 Seconds (9.8-13.1) 12/01/18 03:04 INR 1.1 12/01/18 03:04 APTT 30.2 Seconds (25.6-37.1) 12/01/18 03:04 Assessment and Plan (1) Elevated troponin Status: Acute (2) Acute CHF (congestive heart failure) Status: Acute (3) COPD (chronic obstructive pulmonary disease) Status: Acute (4) CAD (coronary artery disease) Status: Acute (5) Diabetic foot ulcer Status: Acute (6) Dyslipidemia Status: Acute (7) HTN (hypertension) Status: Acute (8) PVD (peripheral vascular disease) Status: Acute Attending/Attestation - Attestation I have personally seen and examined this patient.: Yes I have fully participated in the care of the patient.: Yes I have reviewed all pertinent clinical information, including history, physical exam and plan: Yes Notes (Text): 12/06/18 23:01 BNP trending up lasix dced swithced to bumex with zaroxylyn cont RAAS modulation as BP tolerates
[2018-12-06] MEDS ORDERED: Enoxaparin 100 mg Syringe SC SCH (21:00)
[2018-12-07] MEDS: Albuterol-Ipratrop 3 mg / 0.5 (3 ml) UD INH SCH ×4 (01:07→19:08)
--- NOTE | 2018-12-07 01:31 | CP.PCM.PN ---
Subjective - Date & Time of Evaluation Date of Evaluation: 12/06/18 Time of Evaluation: 16:30 - Subjective Subjective: No new complaint. Objective - Vital Signs/Intake and Output Vital Signs (last 24 hours): Temp Pulse Resp BP Pulse Ox 98.2 F 62 20 113/70 100 12/07/18 00:21 12/07/18 00:21 12/07/18 00:21 12/07/18 00:21 12/07/18 00:21 Intake and Output: 12/06/18 12/07/18 18:59 06:59 Intake Total 960 Output Total 800 Balance 160 - Medications Medications: Current Medications Acetaminophen (Tylenol 325mg Tab) 650 mg PO Q6 PRN PRN Reason: Pain, Mild (1-3) Last Admin: 12/06/18 06:08 Dose: 650 mg Albuterol/Ipratropium (Duoneb 3 Mg/0.5 Mg (3 Ml) Ud) 3 ml INH RQ6 [facility] Last Admin: 12/07/18 01:07 Dose: 3 ml Alprazolam (Xanax) 0.25 mg PO DAILY [facility] Stop: 12/08/18 09:01 Last Admin: 12/06/18 08:46 Dose: Not Given Aspirin (Ecotrin) 81 mg PO DAILY [facility] Last Admin: 12/06/18 08:42 Dose: 81 mg Atorvastatin Calcium (Lipitor) 80 mg PO DAILY [facility] Last Admin: 12/06/18 08:38 Dose: 80 mg Bumetanide (Bumex) 1 mg IVP BID [facility] Last Admin: 12/06/18 16:40 Dose: 1 mg Clopidogrel Bisulfate (Plavix) 75 mg PO DAILY [facility] Last Admin: 12/06/18 08:39 Dose: 75 mg Dextrose (Dextrose 50% Inj) 0 ml IV STAT PRN; Protocol PRN Reason: Hypoglycemia Protocol Dextrose (Glutose 15) 0 gm PO ONCE PRN; Protocol PRN Reason: Hypoglycemia Protocol Enoxaparin Sodium (Lovenox) 40 mg SC DAILY [facility]; Protocol Gabapentin (Neurontin) 100 mg PO DAILY [facility] Last Admin: 12/06/18 08:46 Dose: 100 mg Glucagon (Glucagen Diagnostic Kit) 0 mg IM STAT PRN; Protocol PRN Reason: Hypoglycemia Protocol Piperacillin Sod/Tazobactam (Sod 3.375 gm/ Sodium Chloride) 100 mls @ 100 mls/hr IVPB Q8H [facility]; Protocol Last Admin: 12/06/18 21:20 Dose: 100 mls/hr Insulin Detemir (Levemir) 8 units SC DAILY [facility] Last Admin: 12/06/18 08:43 Dose: 8 units Insulin Human Regular (Humulin R) 0 units SC ACHS [facility]; Protocol Last Admin: 12/06/18 16:40 Dose: Not Given Lactic Acid (Lac-Hydrin 12% Lotion (225 G)) 1 applic TOP TID [facility] Last Admin: 12/06/18 16:41 Dose: Not Given Lidocaine (Lidoderm) 1 ea TD DAILY [facility] Last Admin: 12/06/18 08:43 Dose: Not Given Metolazone (Zaroxolyn) 5 mg PO DAILY [facility] Last Admin: 12/06/18 08:38 Dose: 5 mg Metoprolol Tartrate (Lopressor) 50 mg PO Q12 [facility] Last Admin: 12/06/18 21:25 Dose: 50 mg Montelukast Sodium (Singulair) 10 mg PO DAILY [facility] Last Admin: 12/06/18 08:39 Dose: 10 mg Pantoprazole Sodium (Protonix Ec Tab) 40 mg PO DAILY@0630 [facility] Last Admin: 12/06/18 06:08 Dose: 40 mg Spironolactone (Aldactone) 12.5 mg PO DAILY [facility] Last Admin: 12/06/18 08:39 Dose: 12.5 mg - Labs Labs: 12/06/18 09:29 12/06/18 09:29 PT 12.5 Seconds (9.8-13.1) 12/01/18 03:04 INR 1.1 12/01/18 03:04 APTT 30.2 Seconds (25.6-37.1) 12/01/18 03:04 Assessment and Plan (1) Acute CHF (congestive heart failure) Status: Acute (2) NSTEMI (non-ST elevated myocardial infarction) Status: Acute (3) COPD (chronic obstructive pulmonary disease) Status: Chronic (4) Dyslipidemia Status: Chronic (5) HTN (hypertension) Status: Chronic (6) NSTEMI (non-ST elevated myocardial infarction) Status: Chronic (7) Severe aortic stenosis Status: Chronic (8) 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
[2018-12-07] MEDS: Pantoprazole 40 mg EC Tab PO SCH (05:59)
[2018-12-07] MEDS: Piperacillin/Tazobact 3.375 GM in Sodium Chloride 0.9% 100 ML IVPB SCH ×3 (05:59→21:45)
[2018-12-07] MEDS: metOLazone 5 MG TAB PO SCH (10:01)
[2018-12-07] MEDS: Enoxaparin 40 mg Syringe SC SCH ×2 (10:02→10:09)
[2018-12-07] MEDS: Lidocaine 5% Patch TD SCH (10:03)
[2018-12-07] MEDS: Insulin Detemir 100 Units/ml Inj SC SCH (10:04)
[2018-12-07] MEDS: Insulin Regular 100 units/ml SC SCH ×4 (10:06→21:40)
[2018-12-08] MEDS: Albuterol-Ipratrop 3 mg / 0.5 (3 ml) UD INH SCH ×2 (01:00→07:50)
[2018-12-08] MEDS: Piperacillin/Tazobact 3.375 GM in Sodium Chloride 0.9% 100 ML IVPB SCH ×3 (06:01→21:57)
[2018-12-08] MEDS: Pantoprazole 40 mg EC Tab PO SCH (06:04)
[2018-12-08] MEDS: Insulin Regular 100 units/ml SC SCH ×4 (07:30→22:02)
[2018-12-08] MEDS: metOLazone 5 MG TAB PO SCH (09:12)
[2018-12-08] MEDS: Enoxaparin 40 mg Syringe SC SCH (09:22)
[2018-12-08] MEDS: Lidocaine 5% Patch TD SCH (09:25)
[2018-12-08] MEDS: Insulin Detemir 100 Units/ml Inj SC SCH (09:30)
--- NOTE | 2018-12-08 12:07 | CP.PCM.PN ---
Subjective - Date & Time of Evaluation Date of Evaluation: 12/08/18 Time of Evaluation: 12:04 - Subjective Subjective: Podiatry Consult note for Dr. Smith: 73 yo female patient seen and evaluated at bedside for bilateral lower extremity edema and R plantar ulcerations. Patient states that she continues to have SOB and difficultly with breathing if she lays down. Patient complains of sensitivity to her bilateral lower extremities. She denies any acute pedal complaints at this time. Denies N/V/F/CP. Objective - Vital Signs/Intake and Output Vital Signs (last 24 hours): Temp Pulse Resp BP Pulse Ox 98.1 F 70 20 116/62 100 12/08/18 08:51 12/08/18 09:24 12/08/18 08:51 12/08/18 09:24 12/08/18 08:51 - Medications Medications: Current Medications Acetaminophen (Tylenol 325mg Tab) 650 mg PO Q6 PRN PRN Reason: Pain, Mild (1-3) Last Admin: 12/07/18 21:36 Dose: 650 mg Aspirin (Ecotrin) 81 mg PO DAILY [facility] Last Admin: 12/08/18 09:12 Dose: 81 mg Atorvastatin Calcium (Lipitor) 80 mg PO DAILY [facility] Last Admin: 12/08/18 09:12 Dose: 80 mg Bumetanide (Bumex) 1 mg IVP BID [facility] Last Admin: 12/08/18 09:13 Dose: 1 mg Clopidogrel Bisulfate (Plavix) 75 mg PO DAILY [facility] Last Admin: 12/08/18 09:13 Dose: 75 mg Dextrose (Dextrose 50% Inj) 0 ml IV STAT PRN; Protocol PRN Reason: Hypoglycemia Protocol Dextrose (Glutose 15) 0 gm PO ONCE PRN; Protocol PRN Reason: Hypoglycemia Protocol Enoxaparin Sodium (Lovenox) 40 mg SC DAILY [facility]; Protocol Last Admin: 12/08/18 09:22 Dose: 40 mg Gabapentin (Neurontin) 100 mg PO DAILY [facility] Last Admin: 12/08/18 09:13 Dose: 100 mg Glucagon (Glucagen Diagnostic Kit) 0 mg IM STAT PRN; Protocol PRN Reason: Hypoglycemia Protocol Piperacillin Sod/Tazobactam (Sod 3.375 gm/ Sodium Chloride) 100 mls @ 100 mls/hr IVPB Q8H [facility]; Protocol Last Admin: 01/27/19 06:01 Dose: 100 mls/hr Insulin Detemir (Levemir) 8 units SC DAILY [facility] Last Admin: 12/08/18 09:30 Dose: 8 units Insulin Human Regular (Humulin R) 0 units SC ACHS [facility]; Protocol Last Admin: 12/08/18 07:30 Dose: Not Given Lactic Acid (Lac-Hydrin 12% Lotion (225 G)) 1 applic TOP TID [facility] Last Admin: 12/08/18 09:46 Dose: Not Given Lidocaine (Lidoderm) 1 ea TD DAILY [facility] Last Admin: 12/08/18 09:25 Dose: Not Given Metolazone (Zaroxolyn) 5 mg PO DAILY [facility] Last Admin: 12/08/18 09:12 Dose: 5 mg Metoprolol Tartrate (Lopressor) 50 mg PO Q12 [facility] Last Admin: 12/08/18 09:24 Dose: 50 mg Montelukast Sodium (Singulair) 10 mg PO DAILY [facility] Last Admin: 12/08/18 09:28 Dose: 10 mg Pantoprazole Sodium (Protonix Ec Tab) 40 mg PO DAILY@0630 [facility] Last Admin: 12/08/18 06:04 Dose: 40 mg Spironolactone (Aldactone) 12.5 mg PO DAILY [facility] Last Admin: 12/08/18 09:12 Dose: 12.5 mg - Labs Labs: 12/06/18 09:29 12/06/18 09:29 PT 12.5 Seconds (9.8-13.1) 12/01/18 03:04 INR 1.1 12/01/18 03:04 APTT 30.2 Seconds (25.6-37.1) 12/01/18 03:04 - Constitutional Appears: Well, Non-toxic, No Acute Distress - Head Exam Head Exam: ATRAUMATIC, NORMOCEPHALIC - Extremities Exam Additional comments: Vasc: DP/PT pulses are non-palpable bilaterally, Cap refill time < 3 sec to all digits, TG warm to warm, +2 edema noted extending from foot proximally to the mid leg level bilaterally Ortho: Pain on palpation to legs, pain upon ROM bilateral LE. No pain on palpation of the calf b/l Neuro: Gross sensation intact, protective sensation absent Derm: RLE: Circular ulceration, stage 3, measuring approximately 5.0 x4.5cm x 1cm, extending into subcutaneous tissue noted to R heel with fibrous base, mild malodor, + serous drainage, no purulence appreciated. No tunneling or tracking appreciated. No probe to bone. Additional ulceration, stage 2, measuring approximately 1cm x 1cm x .1 cm noted to the plantar aspect of hallux. LLE: DTI to left plantar heel, stage 0, no open lesions, no drainage, no clinical signs of infection - Neurological Exam Neurological Exam: Alert, Awake, Oriented x3 - Psychiatric Exam Psychiatric exam: Normal Affect, Normal Mood Assessment and Plan - Assessment and Plan (Free Text) Assessment: 73 y/o female patient, with bilateral lower extremity edema and R plantar ulceration secondary to pressure and edema Plan: Patient seen and evaluated Discussed patient plan in detail with Dr. Smith Chart, labs and vitals reviewed Continue with IV abx per ID reccs: Zosyn Wound culture R plantar heel: no growth after 24 hours Local wound care: R ulceration cleansed with Dakins solution and dressed with betadine, ABD, DSD; L plantar DTI dressed with allevyn pad Multipodus boots ordered, to be worn at all times while in bed, patient not seen wearing the boots Will continue to follow
--- NOTE | 2018-12-08 14:50 | CP.PCM.PN ---
Subjective - Date & Time of Evaluation Date of Evaluation: 12/08/18 Time of Evaluation: 07:00 - Subjective Subjective: 73 yo female patient seen and evaluated at bedside for bilateral lower extremity edema and R plantar ulcerations. Objective - Vital Signs/Intake and Output Vital Signs (last 24 hours): Temp Pulse Resp BP Pulse Ox 98.0 F 62 20 121/65 100 12/08/18 13:12 12/08/18 13:12 12/08/18 13:12 12/08/18 13:12 12/08/18 13:12 - Medications Medications: Current Medications Acetaminophen (Tylenol 325mg Tab) 650 mg PO Q6 PRN PRN Reason: Pain, Mild (1-3) Last Admin: 12/07/18 21:36 Dose: 650 mg Aspirin (Ecotrin) 81 mg PO DAILY [facility] Last Admin: 12/08/18 09:12 Dose: 81 mg Atorvastatin Calcium (Lipitor) 80 mg PO DAILY [facility] Last Admin: 12/08/18 09:12 Dose: 80 mg Bumetanide (Bumex) 1 mg IVP BID [facility] Last Admin: 12/08/18 09:13 Dose: 1 mg Clopidogrel Bisulfate (Plavix) 75 mg PO DAILY [facility] Last Admin: 12/08/18 09:13 Dose: 75 mg Dextrose (Dextrose 50% Inj) 0 ml IV STAT PRN; Protocol PRN Reason: Hypoglycemia Protocol Dextrose (Glutose 15) 0 gm PO ONCE PRN; Protocol PRN Reason: Hypoglycemia Protocol Enoxaparin Sodium (Lovenox) 40 mg SC DAILY [facility]; Protocol Last Admin: 12/08/18 09:22 Dose: 40 mg Gabapentin (Neurontin) 100 mg PO DAILY [facility] Last Admin: 12/08/18 09:13 Dose: 100 mg Glucagon (Glucagen Diagnostic Kit) 0 mg IM STAT PRN; Protocol PRN Reason: Hypoglycemia Protocol Piperacillin Sod/Tazobactam (Sod 3.375 gm/ Sodium Chloride) 100 mls @ 100 mls/hr IVPB Q8H [facility]; Protocol Last Admin: 12/08/18 06:01 Dose: 100 mls/hr Insulin Detemir (Levemir) 8 units SC DAILY [facility] Last Admin: 12/08/18 09:30 Dose: 8 units Insulin Human Regular (Humulin R) 0 units SC ACHS [facility]; Protocol Last Admin: 12/08/18 13:00 Dose: 4 units Lactic Acid (Lac-Hydrin 12% Lotion (225 G)) 1 applic TOP TID [facility] Last Admin: 12/08/18 13:00 Dose: Not Given Lidocaine (Lidoderm) 1 ea TD DAILY [facility] Last Admin: 12/08/18 09:25 Dose: Not Given Metolazone (Zaroxolyn) 5 mg PO DAILY [facility] Last Admin: 12/08/18 09:12 Dose: 5 mg Metoprolol Tartrate (Lopressor) 50 mg PO Q12 [facility] Last Admin: 12/08/18 09:24 Dose: 50 mg Montelukast Sodium (Singulair) 10 mg PO DAILY [facility] Last Admin: 12/08/18 09:28 Dose: 10 mg Pantoprazole Sodium (Protonix Ec Tab) 40 mg PO DAILY@0630 [facility] Last Admin: 12/08/18 06:04 Dose: 40 mg Spironolactone (Aldactone) 12.5 mg PO DAILY [facility] Last Admin: 12/08/18 09:12 Dose: 12.5 mg - Labs Labs: 12/06/18 09:29 12/06/18 09:29 PT 12.5 Seconds (9.8-13.1) 12/01/18 03:04 INR 1.1 12/01/18 03:04 APTT 30.2 Seconds (25.6-37.1) 12/01/18 03:04 - Constitutional Appears: Non-toxic, Chronically Ill - Head Exam Head Exam: NORMOCEPHALIC - Eye Exam Eye Exam: absent: Scleral icterus - ENT Exam ENT Exam: Mucous Membranes Dry - Neck Exam Neck Exam: absent: Lymphadenopathy - Respiratory Exam Respiratory Exam: Decreased Breath Sounds - Cardiovascular Exam Cardiovascular Exam: REGULAR RHYTHM - GI/Abdominal Exam GI & Abdominal Exam: Distended, Soft - Rectal Exam Rectal Exam: Deferred - Exam Exam: NORMAL INSPECTION - Extremities Exam Extremities Exam: Pedal Edema. absent: Calf Tenderness, Tenderness Additional comments: RLE: Circular ulceration, stage 3, measuring approximately 5.0 x4.5cm x 1cm, ex tending into subcutaneous tissue noted to R heel with fibrous base, mild malodor, + serous drainage, no purulence appreciated. No tunneling or tracking appreciated. No probe to bone. Additional ulceration, stage 2, measuring approximately 1cm x 1cm x .1 cm noted to the plantar aspect of hallux. LLE: DTI to left plantar heel, stage 0, no open lesions, no drainage, no clinical signs of infection - Back Exam Back Exam: absent: CVA tenderness (L), CVA tenderness (R) - Neurological Exam Neurological Exam: Alert, Awake, Oriented x3 - Psychiatric Exam Psychiatric exam: Depressed - Skin Skin Exam: Dry Assessment and Plan (1) COPD (chronic obstructive pulmonary disease) Status: Acute (2) Chronic congestive heart failure Status: Acute (3) CAD (coronary artery disease) Status: Acute (4) Diabetic foot ulcer Status: Acute (5) Cellulitis and abscess of foot Status: Acute (6) Acute coronary insufficiency syndrome Status: Acute - Assessment and Plan (Free Text) Assessment: cont rx cellulitis/ chronic ulcerations no new positive cuultures cont oral options
--- NOTE | 2018-12-08 22:06 | CP.PCM.PN ---
Subjective - Date & Time of Evaluation Date of Evaluation: 12/07/18 Time of Evaluation: 16:20 - Subjective Subjective: Continue to complain on and off Dyspnea. Objective - Vital Signs/Intake and Output Vital Signs (last 24 hours): Temp Pulse Resp BP Pulse Ox 98.1 F 66 20 107/60 98 12/08/18 20:34 12/08/18 22:01 12/08/18 20:34 12/08/18 22:01 12/08/18 20:34 - Medications Medications: Current Medications Acetaminophen (Tylenol 325mg Tab) 650 mg PO Q6 PRN PRN Reason: Pain, Mild (1-3) Last Admin: 12/08/18 21:56 Dose: 650 mg Aspirin (Ecotrin) 81 mg PO DAILY [facility] Last Admin: 12/08/18 09:12 Dose: 81 mg Atorvastatin Calcium (Lipitor) 80 mg PO DAILY [facility] Last Admin: 12/08/18 09:12 Dose: 80 mg Bumetanide (Bumex) 1 mg IVP BID [facility] Last Admin: 12/08/18 17:18 Dose: 1 mg Clopidogrel Bisulfate (Plavix) 75 mg PO DAILY [facility] Last Admin: 12/08/18 09:13 Dose: 75 mg Dextrose (Dextrose 50% Inj) 0 ml IV STAT PRN; Protocol PRN Reason: Hypoglycemia Protocol Dextrose (Glutose 15) 0 gm PO ONCE PRN; Protocol PRN Reason: Hypoglycemia Protocol Enoxaparin Sodium (Lovenox) 40 mg SC DAILY [facility]; Protocol Last Admin: 12/08/18 09:22 Dose: 40 mg Gabapentin (Neurontin) 100 mg PO DAILY [facility] Last Admin: 12/08/18 09:13 Dose: 100 mg Glucagon (Glucagen Diagnostic Kit) 0 mg IM STAT PRN; Protocol PRN Reason: Hypoglycemia Protocol Piperacillin Sod/Tazobactam (Sod 3.375 gm/ Sodium Chloride) 100 mls @ 100 mls/hr IVPB Q8H [facility]; Protocol Last Admin: 12/08/18 21:57 Dose: 100 mls/hr Insulin Detemir (Levemir) 8 units SC DAILY [facility] Last Admin: 12/08/18 09:30 Dose: 8 units Insulin Human Regular (Humulin R) 0 units SC ACHS [facility]; Protocol Last Admin: 12/08/18 22:02 Dose: Not Given Lactic Acid (Lac-Hydrin 12% Lotion (225 G)) 1 applic TOP TID [facility] Last Admin: 12/08/18 17:19 Dose: Not Given Lidocaine (Lidoderm) 1 ea TD DAILY [facility] Last Admin: 12/08/18 09:25 Dose: Not Given Metolazone (Zaroxolyn) 5 mg PO DAILY [facility] Last Admin: 12/08/18 09:12 Dose: 5 mg Metoprolol Tartrate (Lopressor) 50 mg PO Q12 [facility] Last Admin: 12/08/18 22:01 Dose: 50 mg Montelukast Sodium (Singulair) 10 mg PO DAILY [facility] Last Admin: 12/08/18 09:28 Dose: 10 mg Pantoprazole Sodium (Protonix Ec Tab) 40 mg PO DAILY@0630 [facility] Last Admin: 12/08/18 06:04 Dose: 40 mg Spironolactone (Aldactone) 12.5 mg PO DAILY [facility] Last Admin: 12/08/18 09:12 Dose: 12.5 mg - Labs Labs: 12/06/18 09:29 12/06/18 09:29 PT 12.5 Seconds (9.8-13.1) 12/01/18 03:04 INR 1.1 12/01/18 03:04 APTT 30.2 Seconds (25.6-37.1) 12/01/18 03:04 Assessment and Plan (1) Acute CHF (congestive heart failure) Status: Acute (2) Diabetic foot ulcer Status: Acute (3) NSTEMI (non-ST elevated myocardial infarction) Status: Acute (4) CAD (coronary artery disease) Status: Chronic (5) Cardiomyopathy Status: Chronic (6) Dyslipidemia Status: Chronic (7) HTN (hypertension) Status: Chronic (8) PVD (peripheral vascular disease) Status: Chronic (9) 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
--- NOTE | 2018-12-08 22:07 | CP.PCM.PN ---
Subjective - Date & Time of Evaluation Date of Evaluation: 12/08/18 Time of Evaluation: 16:25 - Subjective Subjective: No New complaint Objective - Vital Signs/Intake and Output Vital Signs (last 24 hours): Temp Pulse Resp BP Pulse Ox 98.1 F 66 20 107/60 98 12/08/18 20:34 12/08/18 22:01 12/08/18 20:34 12/08/18 22:01 12/08/18 20:34 - Medications Medications: Current Medications Acetaminophen (Tylenol 325mg Tab) 650 mg PO Q6 PRN PRN Reason: Pain, Mild (1-3) Last Admin: 12/08/18 21:56 Dose: 650 mg Aspirin (Ecotrin) 81 mg PO DAILY [facility] Last Admin: 12/08/18 09:12 Dose: 81 mg Atorvastatin Calcium (Lipitor) 80 mg PO DAILY [facility] Last Admin: 12/08/18 09:12 Dose: 80 mg Bumetanide (Bumex) 1 mg IVP BID [facility] Last Admin: 12/08/18 17:18 Dose: 1 mg Clopidogrel Bisulfate (Plavix) 75 mg PO DAILY [facility] Last Admin: 12/08/18 09:13 Dose: 75 mg Dextrose (Dextrose 50% Inj) 0 ml IV STAT PRN; Protocol PRN Reason: Hypoglycemia Protocol Dextrose (Glutose 15) 0 gm PO ONCE PRN; Protocol PRN Reason: Hypoglycemia Protocol Enoxaparin Sodium (Lovenox) 40 mg SC DAILY [facility]; Protocol Last Admin: 12/08/18 09:22 Dose: 40 mg Gabapentin (Neurontin) 100 mg PO DAILY [facility] Last Admin: 12/08/18 09:13 Dose: 100 mg Glucagon (Glucagen Diagnostic Kit) 0 mg IM STAT PRN; Protocol PRN Reason: Hypoglycemia Protocol Piperacillin Sod/Tazobactam (Sod 3.375 gm/ Sodium Chloride) 100 mls @ 100 mls/hr IVPB Q8H [facility]; Protocol Last Admin: 12/08/18 21:57 Dose: 100 mls/hr Insulin Detemir (Levemir) 8 units SC DAILY [facility] Last Admin: 12/08/18 09:30 Dose: 8 units Insulin Human Regular (Humulin R) 0 units SC ACHS [facility]; Protocol Last Admin: 12/08/18 22:02 Dose: Not Given Lactic Acid (Lac-Hydrin 12% Lotion (225 G)) 1 applic TOP TID [facility] Last Admin: 12/08/18 17:19 Dose: Not Given Lidocaine (Lidoderm) 1 ea TD DAILY [facility] Last Admin: 12/08/18 09:25 Dose: Not Given Metolazone (Zaroxolyn) 5 mg PO DAILY [facility] Last Admin: 12/08/18 09:12 Dose: 5 mg Metoprolol Tartrate (Lopressor) 50 mg PO Q12 [facility] Last Admin: 12/08/18 22:01 Dose: 50 mg Montelukast Sodium (Singulair) 10 mg PO DAILY [facility] Last Admin: 12/08/18 09:28 Dose: 10 mg Pantoprazole Sodium (Protonix Ec Tab) 40 mg PO DAILY@0630 [facility] Last Admin: 12/08/18 06:04 Dose: 40 mg Spironolactone (Aldactone) 12.5 mg PO DAILY [facility] Last Admin: 12/08/18 09:12 Dose: 12.5 mg - Labs Labs: 12/06/18 09:29 12/06/18 09:29 PT 12.5 Seconds (9.8-13.1) 12/01/18 03:04 INR 1.1 12/01/18 03:04 APTT 30.2 Seconds (25.6-37.1) 12/01/18 03:04 Assessment and Plan (1) Acute coronary insufficiency syndrome Status: Acute - Assessment and Plan (Free Text) Plan: (2) Diabetic foot ulcer Status: Acute (3) Dyslipidemia Status: Chronic (4) NSTEMI (non-ST elevated myocardial infarction) Status: Chronic (5) 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
[2018-12-09] MEDS: Pantoprazole 40 mg EC Tab PO SCH (06:12)
[2018-12-09] MEDS: Piperacillin/Tazobact 3.375 GM in Sodium Chloride 0.9% 100 ML IVPB SCH ×3 (06:38→22:00)
[2018-12-09] MEDS: Insulin Regular 100 units/ml SC SCH ×4 (07:53→22:00)
[2018-12-09] MEDS: Lidocaine 5% Patch TD SCH (09:49)
[2018-12-09] MEDS: Insulin Detemir 100 Units/ml Inj SC SCH (09:50)
[2018-12-09] MEDS: Enoxaparin 40 mg Syringe SC SCH (09:51)
[2018-12-09] MEDS: metOLazone 5 MG TAB PO SCH (09:52)
--- NOTE | 2018-12-09 11:43 | CP.PCM.PN ---
<Carlos Dempsey - Last Filed: 12/09/18 21:02> Subjective - Date & Time of Evaluation Date of Evaluation: 12/09/18 Time of Evaluation: 11:42 - Subjective Subjective: Carlos Dempsey DO PGY1 - Internal Medicine [employer] - Cardiology Note for Dr. Jimenez Seen and examined at bedside this morning, has complaints of shortness of breath as well as l or extremity edema. Also complains of pleuritic chest pain worsened with cough. Objective - Vital Signs/Intake and Output Vital Signs (last 24 hours): Temp Pulse Resp BP Pulse Ox 97.5 F L 64 20 116/74 97 12/09/18 08:59 12/09/18 09:52 12/09/18 08:59 12/09/18 09:52 12/09/18 08:59 - Medications Medications: Current Medications Acetaminophen (Tylenol 325mg Tab) 650 mg PO Q6 PRN PRN Reason: Pain, Mild (1-3) Last Admin: 12/08/18 21:56 Dose: 650 mg Alprazolam (Xanax) 0.25 mg PO DAILY [facility] Stop: 12/16/18 09:01 Last Admin: 12/09/18 11:06 Dose: 0.25 mg Aspirin (Ecotrin) 81 mg PO DAILY [facility] Last Admin: 12/09/18 09:52 Dose: 81 mg Atorvastatin Calcium (Lipitor) 80 mg PO DAILY [facility] Last Admin: 12/09/18 09:51 Dose: 80 mg Bumetanide (Bumex) 1 mg IVP BID [facility] Last Admin: 12/09/18 09:51 Dose: 1 mg Clopidogrel Bisulfate (Plavix) 75 mg PO DAILY [facility] Last Admin: 12/09/18 09:52 Dose: 75 mg Dextrose (Dextrose 50% Inj) 0 ml IV STAT PRN; Protocol PRN Reason: Hypoglycemia Protocol Dextrose (Glutose 15) 0 gm PO ONCE PRN; Protocol PRN Reason: Hypoglycemia Protocol Enoxaparin Sodium (Lovenox) 40 mg SC DAILY [facility]; Protocol Last Admin: 12/09/18 09:51 Dose: 40 mg Gabapentin (Neurontin) 100 mg PO DAILY [facility] Last Admin: 12/09/18 09:52 Dose: 100 mg Glucagon (Glucagen Diagnostic Kit) 0 mg IM STAT PRN; Protocol PRN Reason: Hypoglycemia Protocol Piperacillin Sod/Tazobactam (Sod 3.375 gm/ Sodium Chloride) 100 mls @ 100 mls/hr IVPB Q8H [facility]; Protocol Last Admin: 12/09/18 06:38 Dose: 100 mls/hr Insulin Detemir (Levemir) 8 units SC DAILY [facility] Last Admin: 12/09/18 09:50 Dose: 8 units Insulin Human Regular (Humulin R) 0 units SC ACHS [facility]; Protocol Last Admin: 12/09/18 07:53 Dose: Not Given Lactic Acid (Lac-Hydrin 12% Lotion (225 G)) 1 applic TOP TID [facility] Last Admin: 12/09/18 09:50 Dose: Not Given Lidocaine (Lidoderm) 1 ea TD DAILY [facility] Last Admin: 12/09/18 09:49 Dose: 1 ea Metolazone (Zaroxolyn) 5 mg PO DAILY [facility] Last Admin: 12/09/18 09:52 Dose: 5 mg Metoprolol Tartrate (Lopressor) 50 mg PO Q12 [facility] Last Admin: 12/09/18 09:52 Dose: 50 mg Montelukast Sodium (Singulair) 10 mg PO DAILY [facility] Last Admin: 12/09/18 09:52 Dose: 10 mg Pantoprazole Sodium (Protonix Ec Tab) 40 mg PO DAILY@0630 [facility] Last Admin: 12/09/18 06:12 Dose: 40 mg Spironolactone (Aldactone) 12.5 mg PO DAILY [facility] Last Admin: 12/09/18 09:51 Dose: 12.5 mg - Labs Labs: 12/06/18 09:29 12/06/18 09:29 PT 12.5 Seconds (9.8-13.1) 12/01/18 03:04 INR 1.1 12/01/18 03:04 APTT 30.2 Seconds (25.6-37.1) 12/01/18 03:04 - Constitutional Appears: Well, No Acute Distress - Head Exam Head Exam: ATRAUMATIC, NORMOCEPHALIC - Eye Exam Eye Exam: EOMI, PERRL - Respiratory Exam Additional comments: Diminished breath sounds RML/RLL + LLL - Cardiovascular Exam Cardiovascular Exam: RRR, +S1, +S2, Significant systolic murmur - GI/Abdominal Exam GI & Abdominal Exam: Soft, Normal Bowel Sounds - Extremities Exam Additional comments: 3+ pitting edema bilaterally; BL LE warm to touch Edema appears to be resolving Assessment and Plan (1) Acute CHF (congestive heart failure) Status: Acute (2) Foot infection Status: Acute (3) HTN (hypertension) Status: Acute (4) PVD (peripheral vascular disease) Status: Acute - Assessment and Plan (Free Text) Plan: CBC/CMP Mag Phos BNP ordered to day Will advise to replete Mag Severe Cardiomyopathy; Aggressive Dialysis C/w Bumex 1mg BID C/w Zaroxylyn 5 QD C/w Lopressor to 50 Q12 C/w Aldactone 12.5 Strict IO Recent BNP improving : 02009 < 32496 < 83302 Medically Manage Severe Complained bipap was uncomfortable overnight due to mask fitting/ dry air; Will verbalize to RT to ensure proper fitting C/w ASA/Plavix Cardiac Cath results Severe ; Aortic valve 0.64 Patent left main stent EF 25% Moderate pulm HTN Severe cardiomyopathy <Rm Jimenez - Last Filed: 12/10/18 23:57> Objective - Vital Signs/Intake and Output Vital Signs (last 24 hours): Temp Pulse Resp BP Pulse Ox 97.8 F 60 16 96/56 L 98 12/10/18 20:52 12/10/18 21:38 12/10/18 20:52 12/10/18 21:38 12/10/18 20:52 - Medications Medications: Current Medications Acetaminophen (Tylenol 325mg Tab) 650 mg PO Q6 PRN PRN Reason: Pain, Mild (1-3) Last Admin: 12/10/18 12:29 Dose: 650 mg Alprazolam (Xanax) 0.25 mg PO DAILY [facility] Stop: 12/16/18 09:01 Last Admin: 12/10/18 09:22 Dose: 0.25 mg Aspirin (Ecotrin) 81 mg PO DAILY [facility] Last Admin: 12/10/18 09:15 Dose: 81 mg Atorvastatin Calcium (Lipitor) 80 mg PO DAILY [facility] Last Admin: 12/10/18 09:16 Dose: 80 mg Bumetanide (Bumex) 1 mg IVP BID [facility] Last Admin: 12/10/18 16:45 Dose: 1 mg Clopidogrel Bisulfate (Plavix) 75 mg PO DAILY [facility] Last Admin: 12/10/18 09:16 Dose: 75 mg Dextrose (Dextrose 50% Inj) 0 ml IV STAT PRN; Protocol PRN Reason: Hypoglycemia Protocol Dextrose (Glutose 15) 0 gm PO ONCE PRN; Protocol PRN Reason: Hypoglycemia Protocol Gabapentin (Neurontin) 100 mg PO DAILY [facility] Last Admin: 12/10/18 09:15 Dose: 100 mg Glucagon (Glucagen Diagnostic Kit) 0 mg IM STAT PRN; Protocol PRN Reason: Hypoglycemia Protocol Piperacillin Sod/Tazobactam (Sod 3.375 gm/ Sodium Chloride) 100 mls @ 100 mls/hr IVPB Q8H [facility]; Protocol Last Admin: 12/10/18 22:34 Dose: 100 mls/hr Insulin Detemir (Levemir) 8 units SC DAILY [facility] Last Admin: 12/10/18 09:17 Dose: 8 units Insulin Human Regular (Humulin R) 0 units SC ACHS [facility]; Protocol Last Admin: 12/10/18 22:25 Dose: Not Given Lactic Acid (Lac-Hydrin 12% Lotion (225 G)) 1 applic TOP TID [facility] Last Admin: 12/10/18 16:46 Dose: 1 applic Lidocaine (Lidoderm) 1 ea TD DAILY [facility] Last Admin: 12/10/18 09:17 Dose: 1 ea Metolazone (Zaroxolyn) 5 mg PO DAILY [facility] Last Admin: 12/10/18 09:15 Dose: 5 mg Metoprolol Tartrate (Lopressor) 50 mg PO Q12 [facility] Last Admin: 12/10/18 21:38 Dose: Not Given Montelukast Sodium (Singulair) 10 mg PO DAILY [facility] Last Admin: 12/10/18 09:19 Dose: 10 mg Morphine Sulfate (Morphine) 1 mg IVP Q4 PRN PRN Reason: Pain, severe (8-10) Last Admin: 12/10/18 16:44 Dose: 1 mg Pantoprazole Sodium (Protonix Ec Tab) 40 mg PO DAILY@0630 [facility] Last Admin: 12/10/18 05:37 Dose: 40 mg Spironolactone (Aldactone) 12.5 mg PO DAILY [facility] Last Admin: 12/10/18 09:15 Dose: 12.5 mg - Labs Labs: 12/09/18 17:23 12/09/18 17:23 PT 12.5 Seconds (9.8-13.1) 12/01/18 03:04 INR 1.1 12/01/18 03:04 APTT 30.2 Seconds (25.6-37.1) 12/01/18 03:04 Assessment and Plan (1) Elevated troponin Status: Acute (2) Acute CHF (congestive heart failure) Status: Acute (3) COPD (chronic obstructive pulmonary disease) Status: Acute (4) CAD (coronary artery disease) Status: Acute (5) Diabetic foot ulcer Status: Acute (6) Dyslipidemia Status: Acute (7) HTN (hypertension) Status: Acute (8) PVD (peripheral vascular disease) Status: Acute Attending/Attestation - Attestation I have personally seen and examined this patient.: Yes I have fully participated in the care of the patient.: Yes I have reviewed all pertinent clinical information, including history, physical exam and plan: Yes
[2018-12-09 17:55] LABS: BASO % 0.6 % (0.0-2.0); EOS # 0.5 K/uL (0.0-0.7); EOS % 6.4 % (0.0-4.0); HEMOGLOBIN 9.5 g/dL (12.0-16.0); LYMPH # 1.7 K/uL (1.0-4.3); MEAN CELL VOLUME 90.3 fl (81.0-99.0); MEAN CORPUSCULAR HEMOGLOBIN 29.2 pg (27.0-31.0); MEAN CORPUSCULAR HGB CONC 32.3 g/dL (33.0-37.0); MEAN PLATELET VOLUME 7.9 fl (7.2-11.7); MONO # 0.6 K/uL (0.0-0.8); MONO % 8.3 % (0.0-10.0); NEUT # 4.8 K/uL (1.8-7.0); NEUT % 62.7 % (50.0-75.0); NRBC % 0.1 % (0.0-0.0); RBC 3.24 Mil/uL (3.80-5.20); WHITE BLOOD COUNT 7.6 K/uL (4.8-10.8)
[2018-12-09 18:12] LABS: ALB/GLOB RATIO 0.9 (1.0-2.1); ALBUMIN 3.2 g/dL (3.5-5.0); ALT/SGPT 23 U/L (9-52); AST/SGOT 28 U/L (14-36); BLOOD UREA NITROGEN 23 mg/dl (7-17); CALCIUM 9.1 mg/dL (8.4-10.2); GFR NON-AFRICAN AMERICAN > 60
[2018-12-09 18:13] LABS: B-TYPE NATRIURETIC PEPTIDE 14500 pg/ml (0-900)
[2018-12-10] MEDS: Pantoprazole 40 mg EC Tab PO SCH (05:37)
[2018-12-10] MEDS: Piperacillin/Tazobact 3.375 GM in Sodium Chloride 0.9% 100 ML IVPB SCH ×3 (06:00→22:34)
--- NOTE | 2018-12-10 07:58 | CP.PCM.PN ---
Subjective - Date & Time of Evaluation Date of Evaluation: 12/10/18 Time of Evaluation: 07:58 - Subjective Subjective: Podiatry Consult note: Dr. Smith 73 yo female patient seen and evaluated at bedside for bilateral lower extremity edema and R leg ulcerations. Patient states that she is experiencing pain to the back of her right lower leg at this time. He denies any acute pedal complaints at this time. Denies N/V/F/CP. Objective - Vital Signs/Intake and Output Vital Signs (last 24 hours): Temp Pulse Resp BP Pulse Ox 98.3 F 59 L 18 107/55 L 98 12/10/18 01:00 12/10/18 01:52 12/10/18 01:00 12/10/18 01:52 12/10/18 01:00 Intake and Output: 12/10/18 12/10/18 06:59 18:59 Intake Total 200 Output Total 900 Balance -700 - Medications Medications: Current Medications Acetaminophen (Tylenol 325mg Tab) 650 mg PO Q6 PRN PRN Reason: Pain, Mild (1-3) Last Admin: 12/09/18 20:35 Dose: 650 mg Alprazolam (Xanax) 0.25 mg PO DAILY [facility] Stop: 12/16/18 09:01 Last Admin: 12/09/18 11:06 Dose: 0.25 mg Aspirin (Ecotrin) 81 mg PO DAILY [facility] Last Admin: 12/09/18 09:52 Dose: 81 mg Atorvastatin Calcium (Lipitor) 80 mg PO DAILY [facility] Last Admin: 12/09/18 09:51 Dose: 80 mg Bumetanide (Bumex) 1 mg IVP BID [facility] Last Admin: 12/09/18 17:43 Dose: 1 mg Clopidogrel Bisulfate (Plavix) 75 mg PO DAILY [facility] Last Admin: 12/09/18 09:52 Dose: 75 mg Dextrose (Dextrose 50% Inj) 0 ml IV STAT PRN; Protocol PRN Reason: Hypoglycemia Protocol Dextrose (Glutose 15) 0 gm PO ONCE PRN; Protocol PRN Reason: Hypoglycemia Protocol Enoxaparin Sodium (Lovenox) 40 mg SC DAILY [facility]; Protocol Last Admin: 12/09/18 09:51 Dose: 40 mg Gabapentin (Neurontin) 100 mg PO DAILY [facility] Last Admin: 12/09/18 09:52 Dose: 100 mg Glucagon (Glucagen Diagnostic Kit) 0 mg IM STAT PRN; Protocol PRN Reason: Hypoglycemia Protocol Piperacillin Sod/Tazobactam (Sod 3.375 gm/ Sodium Chloride) 100 mls @ 100 mls/hr IVPB Q8H [facility]; Protocol Last Admin: 12/10/18 06:00 Dose: 100 mls/hr Insulin Detemir (Levemir) 8 units SC DAILY [facility] Last Admin: 12/09/18 09:50 Dose: 8 units Insulin Human Regular (Humulin R) 0 units SC ACHS [facility]; Protocol Last Admin: 12/09/18 22:00 Dose: Not Given Lactic Acid (Lac-Hydrin 12% Lotion (225 G)) 1 applic TOP TID [facility] Last Admin: 12/09/18 17:44 Dose: Not Given Lidocaine (Lidoderm) 1 ea TD DAILY [facility] Last Admin: 12/09/18 09:49 Dose: 1 ea Metolazone (Zaroxolyn) 5 mg PO DAILY [facility] Last Admin: 12/09/18 09:52 Dose: 5 mg Metoprolol Tartrate (Lopressor) 50 mg PO Q12 [facility] Last Admin: 12/10/18 01:52 Dose: Not Given Montelukast Sodium (Singulair) 10 mg PO DAILY [facility] Last Admin: 12/09/18 09:52 Dose: 10 mg Pantoprazole Sodium (Protonix Ec Tab) 40 mg PO DAILY@0630 [facility] Last Admin: 12/10/18 05:37 Dose: 40 mg Spironolactone (Aldactone) 12.5 mg PO DAILY [facility] Last Admin: 12/09/18 09:51 Dose: 12.5 mg - Labs Labs: 12/09/18 17:23 12/09/18 17:23 PT 12.5 Seconds (9.8-13.1) 12/01/18 03:04 INR 1.1 12/01/18 03:04 APTT 30.2 Seconds (25.6-37.1) 12/01/18 03:04 - Constitutional Appears: Non-toxic, No Acute Distress - Head Exam Head Exam: ATRAUMATIC, NORMOCEPHALIC - Extremities Exam Additional comments: Vasc: DP/PT pulses are non-palpable bilaterally, Cap refill time < 3 sec to all digits, TG warm to warm, +2 edema noted extending from foot proximally to the mid leg level bilaterally Ortho: Pain on palpation to legs, pain upon ROM bilateral LE. No pain on palpation of the calf b/l Neuro: Gross sensation intact, protective sensation absent Derm: RLE: Circular ulceration, stage 3, measuring approximately 5.0 x4.5cm x 1cm, extending into subcutaneous tissue noted to R heel with fibrous base, mild mal odor, + serous drainage, no purulence appreciated. No tunneling or tracking appreciated. No probe to bone. Additional ulceration, stage 2, measuring approximately 1cm x 1cm x .1 cm noted to the plantar aspect of hallux. Additional ulceration appreciated to the posterior aspect of the lower right leg measuring approximately 2cm x 1.5cm x .1 cm, stage 1. LLE: DTI to left plantar heel, stage 0, no open lesions, no drainage, no clinical signs of infection - Neurological Exam Neurological Exam: Alert, Awake, Oriented x3 - Psychiatric Exam Psychiatric exam: Normal Affect, Normal Mood Assessment and Plan - Assessment and Plan (Free Text) Assessment: 73 y/o female patient, with bilateral lower extremity edema and R ulcerations secondary to pressure and edema Plan: Patient seen and evaluated Discussed patient plan in detail with Dr. Smith Chart, labs and vitals reviewed Continue with IV abx per ID reccs: Zosyn Wound culture R plantar heel: staph aureus Local wound care: R ulceration cleansed with Dakins solution and dressed with betadine, ABD, DSD; L plantar DTI dressed ABD DSD Multipodus boots ordered, to be worn at all times while in bed, patient not seen wearing the boots Will continue to follow
[2018-12-10] MEDS: Enoxaparin 40 mg Syringe SC SCH (09:14)
[2018-12-10] MEDS: metOLazone 5 MG TAB PO SCH (09:15)
[2018-12-10] MEDS: Insulin Detemir 100 Units/ml Inj SC SCH (09:17)
[2018-12-10] MEDS: Lidocaine 5% Patch TD SCH (09:17)
[2018-12-10] MEDS: Insulin Regular 100 units/ml SC SCH ×4 (09:18→22:25)
[2018-12-10] MEDS: Morphine 4 MG/ML VIAL IVP PRN (16:44)
--- NOTE | 2018-12-10 21:51 | CP.PCM.PN ---
<Carlos Dempsey - Last Filed: 12/10/18 23:59> Subjective - Date & Time of Evaluation Date of Evaluation: 12/10/18 Time of Evaluation: 21:44 - Subjective Subjective: Carlos Dempsey DO PGY1 - Internal Medicine [employer] - Cardiology Note for Dr. Jimenez Patient was seen and examined at bedside this evening; still complaining of back pain exacerbated w/ cough. Patient says her SOB, Cough, and Edema are improving. No further complaints voiced at bedside; no CP or palpitations. Objective - Vital Signs/Intake and Output Vital Signs (last 24 hours): Temp Pulse Resp BP Pulse Ox 97.8 F 60 16 96/56 L 98 12/10/18 20:52 12/10/18 21:38 12/10/18 20:52 12/10/18 21:38 12/10/18 20:52 - Medications Medications: Current Medications Acetaminophen (Tylenol 325mg Tab) 650 mg PO Q6 PRN PRN Reason: Pain, Mild (1-3) Last Admin: 12/10/18 12:29 Dose: 650 mg Alprazolam (Xanax) 0.25 mg PO DAILY [facility] Stop: 12/16/18 09:01 Last Admin: 12/10/18 09:22 Dose: 0.25 mg Aspirin (Ecotrin) 81 mg PO DAILY [facility] Last Admin: 12/10/18 09:15 Dose: 81 mg Atorvastatin Calcium (Lipitor) 80 mg PO DAILY [facility] Last Admin: 12/10/18 09:16 Dose: 80 mg Bumetanide (Bumex) 1 mg IVP BID [facility] Last Admin: 12/10/18 16:45 Dose: 1 mg Clopidogrel Bisulfate (Plavix) 75 mg PO DAILY [facility] Last Admin: 12/10/18 09:16 Dose: 75 mg Dextrose (Dextrose 50% Inj) 0 ml IV STAT PRN; Protocol PRN Reason: Hypoglycemia Protocol Dextrose (Glutose 15) 0 gm PO ONCE PRN; Protocol PRN Reason: Hypoglycemia Protocol Gabapentin (Neurontin) 100 mg PO DAILY [facility] Last Admin: 12/10/18 09:15 Dose: 100 mg Glucagon (Glucagen Diagnostic Kit) 0 mg IM STAT PRN; Protocol PRN Reason: Hypoglycemia Protocol Piperacillin Sod/Tazobactam (Sod 3.375 gm/ Sodium Chloride) 100 mls @ 100 mls/hr IVPB Q8H [facility]; Protocol Last Admin: 12/10/18 13:49 Dose: 100 mls/hr Insulin Detemir (Levemir) 8 units SC DAILY [facility] Last Admin: 12/10/18 09:17 Dose: 8 units Insulin Human Regular (Humulin R) 0 units SC ACHS [facility]; Protocol Last Admin: 12/10/18 16:45 Dose: 4 units Lactic Acid (Lac-Hydrin 12% Lotion (225 G)) 1 applic TOP TID [facility] Last Admin: 12/10/18 16:46 Dose: 1 applic Lidocaine (Lidoderm) 1 ea TD DAILY [facility] Last Admin: 12/10/18 09:17 Dose: 1 ea Metolazone (Zaroxolyn) 5 mg PO DAILY [facility] Last Admin: 12/10/18 09:15 Dose: 5 mg Metoprolol Tartrate (Lopressor) 50 mg PO Q12 [facility] Last Admin: 12/10/18 21:38 Dose: Not Given Montelukast Sodium (Singulair) 10 mg PO DAILY [facility] Last Admin: 12/10/18 09:19 Dose: 10 mg Morphine Sulfate (Morphine) 1 mg IVP Q4 PRN PRN Reason: Pain, severe (8-10) Last Admin: 12/10/18 16:44 Dose: 1 mg Pantoprazole Sodium (Protonix Ec Tab) 40 mg PO DAILY@0630 [facility] Last Admin: 12/10/18 05:37 Dose: 40 mg Spironolactone (Aldactone) 12.5 mg PO DAILY [facility] Last Admin: 12/10/18 09:15 Dose: 12.5 mg - Labs Labs: 12/09/18 17:23 12/09/18 17:23 PT 12.5 Seconds (9.8-13.1) 12/01/18 03:04 INR 1.1 12/01/18 03:04 APTT 30.2 Seconds (25.6-37.1) 12/01/18 03:04 - Constitutional Appears: Well, No Acute Distress - Head Exam Head Exam: ATRAUMATIC, NORMOCEPHALIC - Eye Exam Eye Exam: EOMI, PERRL - Respiratory Exam Additional comments: Diminished breath sounds RML/RLL + LLL - Cardiovascular Exam Cardiovascular Exam: RRR, +S1, +S2, Significant systolic murmur - GI/Abdominal Exam GI & Abdominal Exam: Soft, Normal Bowel Sounds - Extremities Exam Additional comments: 3+ pitting edema bilaterally; BL LE warm to touch Edema appears to be resolving Assessment and Plan (1) Acute CHF (congestive heart failure) Status: Acute (2) Foot infection Status: Acute (3) HTN (hypertension) Status: Acute (4) PVD (peripheral vascular disease) Status: Acute - Assessment and Plan (Free Text) Plan: Patient continues to complain of back pain w/ cough - analgesic control by primary team CT Thoraco-LumboSacral Spine Severe Cardiomyopathy; Aggressive Dialysis Start fluid restriction <1000cc/ 24H C/w Bumex 1mg BID C/w Zaroxylyn 5 QD C/w Lopressor to 50 Q12 C/w Aldactone 12.5 Strict IO Recent BNP improving : 40110 < 17191 < 73147 Medically Manage Severe Complained bipap was uncomfortable overnight due to mask fitting/ dry air; Will verbalize to RT to ensure proper fitting C/w ASA/Plavix Cardiac Cath results Severe ; Aortic valve 0.64 Patent left main stent EF 25% Moderate pulm HTN Severe cardiomyopathy Further reccs per Dr. Jimenez <Rm Jimenez - Last Filed: 12/11/18 00:01> Objective - Vital Signs/Intake and Output Vital Signs (last 24 hours): Temp Pulse Resp BP Pulse Ox 97.8 F 60 16 96/56 L 98 12/10/18 20:52 12/10/18 21:38 12/10/18 20:52 12/10/18 21:38 12/10/18 20:52 - Medications Medications: Current Medications Acetaminophen (Tylenol 325mg Tab) 650 mg PO Q6 PRN PRN Reason: Pain, Mild (1-3) Last Admin: 12/10/18 12:29 Dose: 650 mg Alprazolam (Xanax) 0.25 mg PO DAILY [facility] Stop: 12/16/18 09:01 Last Admin: 12/10/18 09:22 Dose: 0.25 mg Aspirin (Ecotrin) 81 mg PO DAILY [facility] Last Admin: 12/10/18 09:15 Dose: 81 mg Atorvastatin Calcium (Lipitor) 80 mg PO DAILY [facility] Last Admin: 12/10/18 09:16 Dose: 80 mg Bumetanide (Bumex) 1 mg IVP BID [facility] Last Admin: 12/10/18 16:45 Dose: 1 mg Clopidogrel Bisulfate (Plavix) 75 mg PO DAILY [facility] Last Admin: 12/10/18 09:16 Dose: 75 mg Dextrose (Dextrose 50% Inj) 0 ml IV STAT PRN; Protocol PRN Reason: Hypoglycemia Protocol Dextrose (Glutose 15) 0 gm PO ONCE PRN; Protocol PRN Reason: Hypoglycemia Protocol Gabapentin (Neurontin) 100 mg PO DAILY [facility] Last Admin: 12/10/18 09:15 Dose: 100 mg Glucagon (Glucagen Diagnostic Kit) 0 mg IM STAT PRN; Protocol PRN Reason: Hypoglycemia Protocol Piperacillin Sod/Tazobactam (Sod 3.375 gm/ Sodium Chloride) 100 mls @ 100 mls/hr IVPB Q8H [facility]; Protocol Last Admin: 12/10/18 22:34 Dose: 100 mls/hr Insulin Detemir (Levemir) 8 units SC DAILY [facility] Last Admin: 12/10/18 09:17 Dose: 8 units Insulin Human Regular (Humulin R) 0 units SC ACHS [facility]; Protocol Last Admin: 12/10/18 22:25 Dose: Not Given Lactic Acid (Lac-Hydrin 12% Lotion (225 G)) 1 applic TOP TID [facility] Last Admin: 12/10/18 16:46 Dose: 1 applic Lidocaine (Lidoderm) 1 ea TD DAILY [facility] Last Admin: 12/10/18 09:17 Dose: 1 ea Metolazone (Zaroxolyn) 5 mg PO DAILY [facility] Last Admin: 12/10/18 09:15 Dose: 5 mg Metoprolol Tartrate (Lopressor) 50 mg PO Q12 [facility] Last Admin: 12/10/18 21:38 Dose: Not Given Montelukast Sodium (Singulair) 10 mg PO DAILY [facility] Last Admin: 12/10/18 09:19 Dose: 10 mg Morphine Sulfate (Morphine) 1 mg IVP Q4 PRN PRN Reason: Pain, severe (8-10) Last Admin: 12/10/18 16:44 Dose: 1 mg Pantoprazole Sodium (Protonix Ec Tab) 40 mg PO DAILY@0630 [facility] Last Admin: 12/10/18 05:37 Dose: 40 mg Spironolactone (Aldactone) 12.5 mg PO DAILY [facility] Last Admin: 12/10/18 09:15 Dose: 12.5 mg - Labs Labs: 12/09/18 17:23 12/09/18 17:23 PT 12.5 Seconds (9.8-13.1) 12/01/18 03:04 INR 1.1 12/01/18 03:04 APTT 30.2 Seconds (25.6-37.1) 12/01/18 03:04 Assessment and Plan (1) Elevated troponin Status: Acute (2) Acute CHF (congestive heart failure) Status: Acute (3) COPD (chronic obstructive pulmonary disease) Status: Acute (4) CAD (coronary artery disease) Status: Acute (5) Diabetic foot ulcer Status: Acute (6) Dyslipidemia Status: Acute (7) HTN (hypertension) Status: Acute (8) PVD (peripheral vascular disease) Status: Acute Attending/Attestation - Attestation I have personally seen and examined this patient.: Yes I have fully participated in the care of the patient.: Yes I have reviewed all pertinent clinical information, including history, physical exam and plan: Yes Notes (Text): 12/11/18 00:00 BNP fluctuant severe with systolic CHF fluid status improving cont bumex and aldactone outpt evaluatio for TAVR CT thoracolumbar spine for evaluation of back pain
[2018-12-11] MEDS: Morphine 4 MG/ML VIAL IVP PRN ×2 (00:10→18:58)
[2018-12-11] MEDS: Pantoprazole 40 mg EC Tab PO SCH (05:45)
[2018-12-11] MEDS: Piperacillin/Tazobact 3.375 GM in Sodium Chloride 0.9% 100 ML IVPB SCH ×3 (05:46→23:15)
[2018-12-11] MEDS: Insulin Detemir 100 Units/ml Inj SC SCH (10:12)
[2018-12-11] MEDS: Insulin Regular 100 units/ml SC SCH ×3 (10:13→17:07)
[2018-12-11] MEDS: Lidocaine 5% Patch TD SCH (10:21)
[2018-12-11] MEDS: metOLazone 5 MG TAB PO SCH (10:25)
--- NOTE | 2018-12-11 20:08 | CP.PCM.PN ---
<Carlos Dempsey - Last Filed: 12/11/18 20:05> Subjective - Date & Time of Evaluation Date of Evaluation: 12/11/18 Time of Evaluation: 20:05 - Subjective Subjective: Carlos Dempsey DO PGY1 - Cardiology Note for Dr. Jimenez Patient was seen and examined at bedside today; Still complaining of back pain; Refused imaging of T/L/S spine today. Spoke w/ patient and she is now agreeable for CT No further complaints offerred at bedside; denies chest pain, sob, palp Objective - Vital Signs/Intake and Output Vital Signs (last 24 hours): Temp Pulse Resp BP Pulse Ox 98.6 F 63 16 116/66 100 12/11/18 16:45 12/11/18 16:45 12/11/18 16:45 12/11/18 16:45 12/11/18 16:45 Intake and Output: 12/11/18 12/12/18 18:59 06:59 Intake Total 1300 Output Total 1100 Balance 200 - Medications Medications: Current Medications Acetaminophen (Tylenol 325mg Tab) 650 mg PO Q6 PRN PRN Reason: Pain, Mild (1-3) Last Admin: 12/10/18 12:29 Dose: 650 mg Alprazolam (Xanax) 0.25 mg PO DAILY [facility] Stop: 12/16/18 09:01 Last Admin: 12/11/18 10:37 Dose: Not Given Aspirin (Ecotrin) 81 mg PO DAILY [facility] Last Admin: 12/11/18 10:10 Dose: 81 mg Atorvastatin Calcium (Lipitor) 80 mg PO DAILY [facility] Last Admin: 12/11/18 10:22 Dose: 80 mg Bumetanide (Bumex) 1 mg IVP BID [facility] Last Admin: 12/11/18 17:06 Dose: 1 mg Clopidogrel Bisulfate (Plavix) 75 mg PO DAILY [facility] Last Admin: 12/11/18 10:25 Dose: 75 mg Dextrose (Dextrose 50% Inj) 0 ml IV STAT PRN; Protocol PRN Reason: Hypoglycemia Protocol Dextrose (Glutose 15) 0 gm PO ONCE PRN; Protocol PRN Reason: Hypoglycemia Protocol Enoxaparin Sodium (Lovenox) 40 mg SC DAILY [facility]; Protocol Gabapentin (Neurontin) 100 mg PO DAILY [facility] Last Admin: 12/11/18 10:24 Dose: 100 mg Glucagon (Glucagen Diagnostic Kit) 0 mg IM STAT PRN; Protocol PRN Reason: Hypoglycemia Protocol Piperacillin Sod/Tazobactam (Sod 3.375 gm/ Sodium Chloride) 100 mls @ 100 mls/hr IVPB Q8H [facility]; Protocol Last Admin: 12/11/18 14:39 Dose: 100 mls/hr Insulin Detemir (Levemir) 8 units SC DAILY [facility] Last Admin: 12/11/18 10:12 Dose: 8 units Insulin Human Regular (Humulin R) 0 units SC ACHS [facility]; Protocol Last Admin: 12/11/18 17:07 Dose: Not Given Lactic Acid (Lac-Hydrin 12% Lotion (225 G)) 1 applic TOP TID [facility] Last Admin: 12/11/18 17:10 Dose: Not Given Lidocaine (Lidoderm) 1 ea TD DAILY [facility] Last Admin: 12/11/18 10:21 Dose: 1 ea Metolazone (Zaroxolyn) 5 mg PO DAILY [facility] Last Admin: 12/11/18 10:25 Dose: 5 mg Metoprolol Tartrate (Lopressor) 50 mg PO Q12 [facility] Last Admin: 12/11/18 10:23 Dose: 50 mg Montelukast Sodium (Singulair) 10 mg PO DAILY [facility] Last Admin: 12/11/18 10:25 Dose: 10 mg Morphine Sulfate (Morphine) 1 mg IVP Q4 PRN PRN Reason: Pain, severe (8-10) Last Admin: 12/11/18 18:58 Dose: 1 mg Pantoprazole Sodium (Protonix Ec Tab) 40 mg PO DAILY@0630 [facility] Last Admin: 12/11/18 05:45 Dose: 40 mg Spironolactone (Aldactone) 12.5 mg PO DAILY [facility] Last Admin: 12/11/18 10:09 Dose: 12.5 mg - Labs Labs: 12/09/18 17:23 12/09/18 17:23 PT 12.5 Seconds (9.8-13.1) 12/01/18 03:04 INR 1.1 12/01/18 03:04 APTT 30.2 Seconds (25.6-37.1) 12/01/18 03:04 - Constitutional Appears: Well, No Acute Distress - Head Exam Head Exam: ATRAUMATIC, NORMOCEPHALIC - Eye Exam Eye Exam: EOMI, PERRL - Respiratory Exam Additional comments: Diminished breath sounds RML/RLL + LLL - Cardiovascular Exam Cardiovascular Exam: RRR, +S1, +S2, Significant systolic murmur - GI/Abdominal Exam GI & Abdominal Exam: Soft, Normal Bowel Sounds - Extremities Exam Additional comments: 3+ pitting edema bilaterally; BL LE warm to touch Improving edema Assessment and Plan (1) Acute CHF (congestive heart failure) Status: Acute (2) Foot infection Status: Acute (3) HTN (hypertension) Status: Acute (4) PVD (peripheral vascular disease) Status: Acute - Assessment and Plan (Free Text) Plan: Patient continues to complain of back pain w/ cough - analgesic control by primary team Patient is agreeable for CT Thoraco-LumboSacral Spine Severe Cardiomyopathy; Aggressive Dialysis Fluid restriction <1000cc/ 24H - Ordered yesterday however incomplete C/w ASA/Plavix C/w Bumex 1mg BID C/w Zaroxylyn 5 QD C/w Lopressor to 50 Q12 C/w Aldactone 12.5 Strict IO - Down to 97KG today Recent BNP improving : 82626 < 57973 < 92861 Medically Manage Severe Patient does not tolerate bipap; re-educate as necessary Cardiac Cath results Severe ; Aortic valve 0.64 Patent left main stent EF 25% Moderate pulm HTN Severe cardiomyopathy Further reccs per Dr. Jimenez <Rm Jimenez - Last Filed: 12/16/18 23:29> Objective - Vital Signs/Intake and Output Vital Signs (last 24 hours): Temp Pulse Resp BP Pulse Ox 98.5 F 64 20 103/83 96 12/16/18 09:03 12/16/18 14:29 12/16/18 09:03 12/16/18 14:29 12/16/18 09:03 - Labs Labs: 12/12/18 09:20 12/12/18 09:20 PT 12.5 Seconds (9.8-13.1) 12/01/18 03:04 INR 1.1 12/01/18 03:04 APTT 30.2 Seconds (25.6-37.1) 12/01/18 03:04 Assessment and Plan (1) Elevated troponin Status: Acute (2) Acute CHF (congestive heart failure) Status: Acute (3) COPD (chronic obstructive pulmonary disease) Status: Acute (4) CAD (coronary artery disease) Status: Acute (5) Diabetic foot ulcer Status: Acute (6) Dyslipidemia Status: Acute (7) HTN (hypertension) Status: Acute (8) PVD (peripheral vascular disease) Status: Acute Attending/Attestation - Attestation I have personally seen and examined this patient.: Yes I have fully participated in the care of the patient.: Yes I have reviewed all pertinent clinical information, including history, physical exam and plan: Yes
[2018-12-12] MEDS: Morphine 4 MG/ML VIAL IVP PRN (01:17)
--- NOTE | 2018-12-12 04:57 | CP.PCM.PN ---
Subjective - Date & Time of Evaluation Date of Evaluation: 12/09/18 Time of Evaluation: 17:15 - Subjective Subjective: No New complaint. Objective - Vital Signs/Intake and Output Vital Signs (last 24 hours): Temp Pulse Resp BP Pulse Ox 97.8 F 64 16 129/70 96 12/12/18 01:19 12/12/18 01:19 12/12/18 01:19 12/12/18 01:19 12/12/18 01:19 Intake and Output: 12/11/18 12/12/18 18:59 06:59 Intake Total 1300 Output Total 1100 Balance 200 - Medications Medications: Current Medications Acetaminophen (Tylenol 325mg Tab) 650 mg PO Q6 PRN PRN Reason: Pain, Mild (1-3) Last Admin: 12/10/18 12:29 Dose: 650 mg Alprazolam (Xanax) 0.25 mg PO DAILY [facility] Stop: 12/16/18 09:01 Last Admin: 12/11/18 10:37 Dose: Not Given Aspirin (Ecotrin) 81 mg PO DAILY [facility] Last Admin: 12/11/18 10:10 Dose: 81 mg Atorvastatin Calcium (Lipitor) 80 mg PO DAILY [facility]S [facility] Last Admin: 12/11/18 10:22 Dose: 80 mg Bumetanide (Bumex) 1 mg IVP BID [facility] Last Admin: 12/11/18 17:06 Dose: 1 mg Clopidogrel Bisulfate (Plavix) 75 mg PO DAILY [facility] Last Admin: 12/11/18 10:25 Dose: 75 mg Dextrose (Dextrose 50% Inj) 0 ml IV STAT PRN; Protocol PRN Reason: Hypoglycemia Protocol Dextrose (Glutose 15) 0 gm PO ONCE PRN; Protocol PRN Reason: Hypoglycemia Protocol Enoxaparin Sodium (Lovenox) 40 mg SC DAILY [facility]; Protocol Gabapentin (Neurontin) 100 mg PO DAILY [facility] Last Admin: 12/11/18 10:24 Dose: 100 mg Glucagon (Glucagen Diagnostic Kit) 0 mg IM STAT PRN; Protocol PRN Reason: Hypoglycemia Protocol Piperacillin Sod/Tazobactam (Sod 3.375 gm/ Sodium Chloride) 100 mls @ 100 mls/hr IVPB Q8H [facility]; Protocol Last Admin: 12/11/18 23:15 Dose: 100 mls/hr Insulin Detemir (Levemir) 8 units SC DAILY [facility] Last Admin: 12/11/18 10:12 Dose: 8 units Insulin Human Regular (Humulin R) 0 units SC ACHS [facility] 234 [facility]S [facility]; Protocol Last Admin: 12/11/18 17:07 Dose: Not Given Lactic Acid (Lac-Hydrin 12% Lotion (225 G)) 1 applic TOP TID [facility] 234 [facility]S [facility] Last Admin: 12/11/18 17:10 Dose: Not Given Lidocaine (Lidoderm) 1 ea TD DAILY [facility] Last Admin: 12/11/18 10:21 Dose: 1 ea Metolazone (Zaroxolyn) 5 mg PO DAILY [facility] Last Admin: 12/11/18 10:25 Dose: 5 mg Metoprolol Tartrate (Lopressor) 50 mg PO Q12 [facility] Last Admin: 12/11/18 21:30 Dose: 50 mg Montelukast Sodium (Singulair) 10 mg PO DAILY [facility] Last Admin: 12/11/18 10:25 Dose: 10 mg Morphine Sulfate (Morphine) 1 mg IVP Q4 PRN PRN Reason: Pain, severe (8-10) Last Admin: 12/12/18 01:17 Dose: 1 mg Pantoprazole Sodium (Protonix Ec Tab) 40 mg PO DAILY@0630 [facility] Last Admin: 12/11/18 05:45 Dose: 40 mg Spironolactone (Aldactone) 12.5 mg PO DAILY [facility] Last Admin: 12/11/18 10:09 Dose: 12.5 mg - Labs Labs: 12/09/18 17:23 12/09/18 17:23 PT 12.5 Seconds (9.8-13.1) 12/01/18 03:04 INR 1.1 12/01/18 03:04 APTT 30.2 Seconds (25.6-37.1) 12/01/18 03:04 Assessment and Plan (1) Acute CHF (congestive heart failure) Assessment & Plan: (2) Diabetic foot ulcer Status: Acute (3) Dyslipidemia Status: Chronic (4) NSTEMI (non-ST elevated myocardial infarction) Status: Chronic (5) 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
--- NOTE | 2018-12-12 04:58 | CP.PCM.PN ---
Subjective - Date & Time of Evaluation Date of Evaluation: 12/10/18 Time of Evaluation: 19:25 - Subjective Subjective: No New Complaint. Objective - Vital Signs/Intake and Output Vital Signs (last 24 hours): Temp Pulse Resp BP Pulse Ox 97.8 F 64 16 129/70 96 12/12/18 01:19 12/12/18 01:19 12/12/18 01:19 12/12/18 01:19 12/12/18 01:19 Intake and Output: 12/11/18 12/12/18 18:59 06:59 Intake Total 1300 Output Total 1100 Balance 200 - Medications Medications: Current Medications Acetaminophen (Tylenol 325mg Tab) 650 mg PO Q6 PRN PRN Reason: Pain, Mild (1-3) Last Admin: 12/10/18 12:29 Dose: 650 mg Alprazolam (Xanax) 0.25 mg PO DAILY [facility] Stop: 12/16/18 09:01 Last Admin: 12/11/18 10:37 Dose: Not Given Aspirin (Ecotrin) 81 mg PO DAILY [facility] Last Admin: 12/11/18 10:10 Dose: 81 mg Atorvastatin Calcium (Lipitor) 80 mg PO DAILY [facility] Last Admin: 12/11/18 10:22 Dose: 80 mg Bumetanide (Bumex) 1 mg IVP BID [facility] Last Admin: 12/11/18 17:06 Dose: 1 mg Clopidogrel Bisulfate (Plavix) 75 mg PO DAILY [facility] Last Admin: 12/11/18 10:25 Dose: 75 mg Dextrose (Dextrose 50% Inj) 0 ml IV STAT PRN; Protocol PRN Reason: Hypoglycemia Protocol Dextrose (Glutose 15) 0 gm PO ONCE PRN; Protocol PRN Reason: Hypoglycemia Protocol Enoxaparin Sodium (Lovenox) 40 mg SC DAILY [facility]; Protocol Gabapentin (Neurontin) 100 mg PO DAILY [facility] Last Admin: 12/11/18 10:24 Dose: 100 mg Glucagon (Glucagen Diagnostic Kit) 0 mg IM STAT PRN; Protocol PRN Reason: Hypoglycemia Protocol Piperacillin Sod/Tazobactam (Sod 3.375 gm/ Sodium Chloride) 100 mls @ 100 mls/hr IVPB Q8H [facility]; Protocol Last Admin: 12/11/18 23:15 Dose: 100 mls/hr Insulin Detemir (Levemir) 8 units SC DAILY [facility] Last Admin: 12/11/18 10:12 Dose: 8 units Insulin Human Regular (Humulin R) 0 units SC ACHS [facility]; Protocol Last Admin: 12/11/18 17:07 Dose: Not Given Lactic Acid (Lac-Hydrin 12% Lotion (225 G)) 1 applic TOP TID [facility] Last Admin: 12/11/18 17:10 Dose: Not Given Lidocaine (Lidoderm) 1 ea TD DAILY [facility] Last Admin: 12/11/18 10:21 Dose: 1 ea Metolazone (Zaroxolyn) 5 mg PO DAILY [facility] Last Admin: 12/11/18 10:25 Dose: 5 mg Metoprolol Tartrate (Lopressor) 50 mg PO Q12 [facility] Last Admin: 12/11/18 21:30 Dose: 50 mg Montelukast Sodium (Singulair) 10 mg PO DAILY [facility] Last Admin: 12/11/18 10:25 Dose: 10 mg Morphine Sulfate (Morphine) 1 mg IVP Q4 PRN PRN Reason: Pain, severe (8-10) Last Admin: 12/12/18 01:17 Dose: 1 mg Pantoprazole Sodium (Protonix Ec Tab) 40 mg PO DAILY@0630 [facility] Last Admin: 12/11/18 05:45 Dose: 40 mg Spironolactone (Aldactone) 12.5 mg PO DAILY [facility] Last Admin: 12/11/18 10:09 Dose: 12.5 mg - Labs Labs: 12/09/18 17:23 12/09/18 17:23 PT 12.5 Seconds (9.8-13.1) 12/01/18 03:04 INR 1.1 12/01/18 03:04 APTT 30.2 Seconds (25.6-37.1) 12/01/18 03:04 Assessment and Plan (1) Acute CHF (congestive heart failure) Status: Resolved - Assessment and Plan (Free Text) Plan: (2) Diabetic foot ulcer Status: Acute (3) Dyslipidemia Status: Chronic (4) NSTEMI (non-ST elevated myocardial infarction) Status: Chronic (5) 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
--- NOTE | 2018-12-12 04:59 | CP.PCM.PN ---
Subjective - Date & Time of Evaluation Date of Evaluation: 12/11/18 Time of Evaluation: 19:30 - Subjective Subjective: No New complaint. Objective - Vital Signs/Intake and Output Vital Signs (last 24 hours): Temp Pulse Resp BP Pulse Ox 97.8 F 64 16 129/70 96 12/12/18 01:19 12/12/18 01:19 12/12/18 01:19 12/12/18 01:19 12/12/18 01:19 Intake and Output: 12/11/18 12/12/18 18:59 06:59 Intake Total 1300 Output Total 1100 Balance 200 - Medications Medications: Current Medications Acetaminophen (Tylenol 325mg Tab) 650 mg PO Q6 PRN PRN Reason: Pain, Mild (1-3) Last Admin: 12/10/18 12:29 Dose: 650 mg Alprazolam (Xanax) 0.25 mg PO DAILY [facility] Stop: 12/16/18 09:01 Last Admin: 12/11/18 10:37 Dose: Not Given Aspirin (Ecotrin) 81 mg PO DAILY [facility] Last Admin: 12/11/18 10:10 Dose: 81 mg Atorvastatin Calcium (Lipitor) 80 mg PO DAILY [facility] Last Admin: 12/11/18 10:22 Dose: 80 mg Bumetanide (Bumex) 1 mg IVP BID [facility] Last Admin: 12/11/18 17:06 Dose: 1 mg Clopidogrel Bisulfate (Plavix) 75 mg PO DAILY [facility] Last Admin: 12/11/18 10:25 Dose: 75 mg Dextrose (Dextrose 50% Inj) 0 ml IV STAT PRN; Protocol PRN Reason: Hypoglycemia Protocol Dextrose (Glutose 15) 0 gm PO ONCE PRN; Protocol PRN Reason: Hypoglycemia Protocol Enoxaparin Sodium (Lovenox) 40 mg SC DAILY [facility]; Protocol Gabapentin (Neurontin) 100 mg PO DAILY [facility] Last Admin: 12/11/18 10:24 Dose: 100 mg Glucagon (Glucagen Diagnostic Kit) 0 mg IM STAT PRN; Protocol PRN Reason: Hypoglycemia Protocol Piperacillin Sod/Tazobactam (Sod 3.375 gm/ Sodium Chloride) 100 mls @ 100 mls/hr IVPB Q8H [facility]; Protocol Last Admin: 12/11/18 23:15 Dose: 100 mls/hr Insulin Detemir (Levemir) 8 units SC DAILY [facility] Last Admin: 12/11/18 10:12 Dose: 8 units Insulin Human Regular (Humulin R) 0 units SC ACHS [facility]; Protocol Last Admin: 12/11/18 17:07 Dose: Not Given Lactic Acid (Lac-Hydrin 12% Lotion (225 G)) 1 applic TOP TID [facility] Last Admin: 12/11/18 17:10 Dose: Not Given Lidocaine (Lidoderm) 1 ea TD DAILY [facility] Last Admin: 12/11/18 10:21 Dose: 1 ea Metolazone (Zaroxolyn) 5 mg PO DAILY [facility] Last Admin: 12/11/18 10:25 Dose: 5 mg Metoprolol Tartrate (Lopressor) 50 mg PO Q12 [facility] Last Admin: 12/11/18 21:30 Dose: 50 mg Montelukast Sodium (Singulair) 10 mg PO DAILY [facility] Last Admin: 12/11/18 10:25 Dose: 10 mg Morphine Sulfate (Morphine) 1 mg IVP Q4 PRN PRN Reason: Pain, severe (8-10) Last Admin: 12/12/18 01:17 Dose: 1 mg Pantoprazole Sodium (Protonix Ec Tab) 40 mg PO DAILY@0630 [facility] Last Admin: 12/11/18 05:45 Dose: 40 mg Spironolactone (Aldactone) 12.5 mg PO DAILY [facility] Last Admin: 12/11/18 10:09 Dose: 12.5 mg - Labs Labs: 12/09/18 17:23 12/09/18 17:23 PT 12.5 Seconds (9.8-13.1) 12/01/18 03:04 INR 1.1 12/01/18 03:04 APTT 30.2 Seconds (25.6-37.1) 12/01/18 03:04 Assessment and Plan (1) Acute CHF (congestive heart failure) Status: Acute (2) NSTEMI (non-ST elevated myocardial infarction) Status: Acute (3) Cardiomyopathy Status: Chronic (4) NSTEMI (non-ST elevated myocardial infarction) Status: Chronic (5) PVD (peripheral vascular disease) Status: Chronic (6) Severe aortic stenosis Status: Chronic (7) 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
[2018-12-12] MEDS: Piperacillin/Tazobact 3.375 GM in Sodium Chloride 0.9% 100 ML IVPB SCH ×3 (06:00→21:47)
[2018-12-12] MEDS: Pantoprazole 40 mg EC Tab PO SCH (08:30)
--- NOTE | 2018-12-12 08:33 | CP.PCM.PN ---
Subjective - Date & Time of Evaluation Date of Evaluation: 12/12/18 Time of Evaluation: 08:33 - Subjective Subjective: Podiatry Consult note: Dr. Smith 73 yo female patient seen and evaluated at bedside for bilateral lower extremity edema and R leg ulcerations; edema resolving. Patient resting comfortably and in NAD. Patient is accompanied by her son at bedside. She states that leg pain is well controlled at this time. Denies N/V/F/CP Objective - Vital Signs/Intake and Output Vital Signs (last 24 hours): Temp Pulse Resp BP Pulse Ox 98 F 63 18 170/79 H 100 12/12/18 05:00 12/12/18 05:00 12/12/18 05:00 12/12/18 05:00 12/12/18 05:00 Intake and Output: 12/12/18 12/12/18 06:59 18:59 Intake Total 1300 Output Total 1100 Balance 200 - Medications Medications: Current Medications Acetaminophen (Tylenol 325mg Tab) 650 mg PO Q6 PRN PRN Reason: Pain, Mild (1-3) Last Admin: 12/10/18 12:29 Dose: 650 mg Alprazolam (Xanax) 0.25 mg PO DAILY [facility] Stop: 12/16/18 09:01 Last Admin: 12/11/18 10:37 Dose: Not Given Aspirin (Ecotrin) 81 mg PO DAILY [facility] Last Admin: 12/11/18 10:10 Dose: 81 mg Atorvastatin Calcium (Lipitor) 80 mg PO DAILY [facility] Last Admin: 12/11/18 10:22 Dose: 80 mg Bumetanide (Bumex) 1 mg IVP BID [facility] Last Admin: 12/11/18 17:06 Dose: 1 mg Clopidogrel Bisulfate (Plavix) 75 mg PO DAILY [facility] Last Admin: 12/11/18 10:25 Dose: 75 mg Dextrose (Dextrose 50% Inj) 0 ml IV STAT PRN; Protocol PRN Reason: Hypoglycemia Protocol Dextrose (Glutose 15) 0 gm PO ONCE PRN; Protocol PRN Reason: Hypoglycemia Protocol Enoxaparin Sodium (Lovenox) 40 mg SC DAILY [facility]; Protocol Gabapentin (Neurontin) 100 mg PO DAILY [facility] Last Admin: 12/11/18 10:24 Dose: 100 mg Glucagon (Glucagen Diagnostic Kit) 0 mg IM STAT PRN; Protocol PRN Reason: Hypoglycemia Protocol Piperacillin Sod/Tazobactam (Sod 3.375 gm/ Sodium Chloride) 100 mls @ 100 mls/hr IVPB Q8H [facility]; Protocol Last Admin: 12/12/18 06:00 Dose: 100 mls/hr Insulin Detemir (Levemir) 8 units SC DAILY [facility] Last Admin: 12/11/18 10:12 Dose: 8 units Insulin Human Regular (Humulin R) 0 units SC ACHS [facility]; Protocol Last Admin: 12/11/18 17:07 Dose: Not Given Lactic Acid (Lac-Hydrin 12% Lotion (225 G)) 1 applic TOP TID [facility] Last Admin: 12/11/18 17:10 Dose: Not Given Lidocaine (Lidoderm) 1 ea TD DAILY [facility] Last Admin: 12/11/18 10:21 Dose: 1 ea Metolazone (Zaroxolyn) 5 mg PO DAILY [facility] Last Admin: 12/11/18 10:25 Dose: 5 mg Metoprolol Tartrate (Lopressor) 50 mg PO Q12 [facility] Last Admin: 12/11/18 21:30 Dose: 50 mg Montelukast Sodium (Singulair) 10 mg PO DAILY [facility] Last Admin: 12/11/18 10:25 Dose: 10 mg Morphine Sulfate (Morphine) 1 mg IVP Q4 PRN PRN Reason: Pain, severe (8-10) Last Admin: 12/12/18 01:17 Dose: 1 mg Ondansetron HCl (Zofran Inj) 4 mg IVP Q6 PRN PRN Reason: Nausea/Vomiting Pantoprazole Sodium (Protonix Ec Tab) 40 mg PO DAILY@0630 [facility] Last Admin: 12/12/18 08:30 Dose: 40 mg Spironolactone (Aldactone) 12.5 mg PO DAILY [facility] Last Admin: 12/11/18 10:09 Dose: 12.5 mg - Labs Labs: 12/09/18 17:23 12/09/18 17:23 PT 12.5 Seconds (9.8-13.1) 12/01/18 03:04 INR 1.1 12/01/18 03:04 APTT 30.2 Seconds (25.6-37.1) 12/01/18 03:04 - Constitutional Appears: Non-toxic, No Acute Distress - Head Exam Head Exam: ATRAUMATIC, NORMOCEPHALIC - Extremities Exam Additional comments: Vasc: DP/PT pulses are non-palpable bilaterally, Cap refill time < 3 sec to all digits, TG warm to warm, +1 edema noted extending from foot proximally to the mid leg level bilaterally Ortho: Pain on palpation to legs, pain upon ROM bilateral LE. No pain on palpation of the calf b/l Neuro: Gross sensation intact, protective sensation absent Derm: RLE: Circular ulceration, stage 3, measuring approximately 5.0 x4.5cm x 1cm, extending into subcutaneous tissue noted to R heel with fibrous base, mild malodor, + serous drainage, no purulence appreciated. No tunneling or tracking appreciated. No probe to bone. Additional ulceration, stage 2, measuring approximately 1cm x 1cm x .1 cm noted to the plantar aspect of hallux. Additional ulceration appreciated to the posterior aspect of the lower right leg measuring approximately 2cm x 1.5cm x .1 cm, stage 1. LLE: DTI to left plantar heel, stage 0, no open lesions, no drainage, no clinical signs of infection - Neurological Exam Neurological Exam: Alert, Awake, Oriented x3 - Psychiatric Exam Psychiatric exam: Normal Affect, Normal Mood Assessment and Plan - Assessment and Plan (Free Text) Assessment: 73 year old female patient, with bilateral lower extremity edema and R ulcerations secondary to pressure and edema; edema resolving Plan: Patient seen and evaluated Discussed patient plan in detail with Dr. Smith Continue with IV abx per ID reccs: Zosyn Wound culture R plantar heel: staph aureus Local wound care: R ulceration cleansed with Dakins solution and dressed with betadine, ABD, DSD; L plantar DTI dressed with optifoam No podiatric surgical intervention at this time, continue with local wound care Multipodus boots ordered, to be worn at all times while in bed, patient not seen wearing the boots Will continue to follow
[2018-12-12 09:51] LABS: BASO % 0.4 % (0.0-2.0); EOS # 0.3 K/uL (0.0-0.7); EOS % 4.3 % (0.0-4.0); HEMOGLOBIN 9.8 g/dL (12.0-16.0); LYMPH # 1.2 K/uL (1.0-4.3); LYMPH % 15.8 % (20.0-40.0); MEAN CELL VOLUME 91.6 fl (81.0-99.0); MEAN CORPUSCULAR HEMOGLOBIN 28.9 pg (27.0-31.0); MEAN CORPUSCULAR HGB CONC 31.6 g/dL (33.0-37.0); MONO # 0.4 K/uL (0.0-0.8); MONO % 5.1 % (0.0-10.0); NEUT # 5.7 K/uL (1.8-7.0); NEUT % 74.4 % (50.0-75.0); NRBC % 0.1 % (0.0-0.0); RBC 3.4 Mil/uL (3.80-5.20); RED CELL DISTRIBUTION WIDTH 16.2 % (11.5-14.5); WHITE BLOOD COUNT 7.7 K/uL (4.8-10.8)
[2018-12-12] MEDS: Enoxaparin 40 mg Syringe SC SCH (09:55)
[2018-12-12] MEDS: metOLazone 5 MG TAB PO SCH (09:57)
[2018-12-12] MEDS: Lidocaine 5% Patch TD SCH ×2 (10:01→18:10)
[2018-12-12] MEDS: Insulin Detemir 100 Units/ml Inj SC SCH (10:03)
[2018-12-12] MEDS: Insulin Regular 100 units/ml SC SCH ×4 (10:04→22:45)
[2018-12-12 10:59] LABS: ALB/GLOB RATIO 0.9 (1.0-2.1); ALBUMIN 3.6 g/dL (3.5-5.0); ALT/SGPT 23 U/L (9-52); AST/SGOT 19 U/L (14-36); BLOOD UREA NITROGEN 25 mg/dl (7-17); CALCIUM 9.6 mg/dL (8.4-10.2); GFR NON-AFRICAN AMERICAN > 60
--- NOTE | 2018-12-12 12:34 | CT ---
Date of service: 12/12/2018 PROCEDURE: CT Lumbar Spine without contrast HISTORY: Chronic back pain. COMPARISON: Correlation made with concurrent CT scan of the thoracic spine. Additionally, comparison made with CT scan of the lower the CT angiography of the abdomen and iliofemoral vasculature dated 09/30/2018 which also image the lumbar spine in 3 planes. TECHNIQUE: Axial computed tomography images were obtained of the lumbar spine without the use of intravenous contrast. Coronal and sagittal reformatted images were created and reviewed. Total radiation dose lumbar and thoracic spine: Total exam DLP = 2083.58 mGy-cm. This CT exam was performed using one or more of the following dose reduction techniques: Automated exposure control, adjustment of the mA and/or kV according to patient size, and/or use of iterative reconstruction technique. FINDINGS: VERTEBRAE: No acute compression fractures nor retropulsed fragments. The vertebral bodies exhibit normal stature. Redemonstrated are discectomy and fusion changes with short segment bilateral Pham rods attached to the of pedicles of the L4 and L5 vertebral bodies. In addition, there is radiopaque presumed kyphoplasty cement within the superior anterior aspect of the L4 segment. Fusion appears solid and hardware intact without evidence of loosening or infection. DISCS/SPINAL CANAL/NEURAL FORAMINA: Degenerative spondylosis L5-S1 level includes disc space narrowing, endplate eburnation with irregular disc ridge complex. The facets also hypertrophic at this level. There is mild compressive effects on the ventral surface of the thecal sac more so on the right however the overall central canal is quite capacious. The exit foramina are quite stenotic. At the L4 4 L5 level, the canal and exit foramina are obscured by streak and beam hardening artifact there emanating from the aforementioned posterior fixation hardware. At the L3-L4 level, there is also significant streak slightly and beam hardening artifact partially obscuring the central canal. The facet joints do appear hypertrophic. Central canal appears adequate so far as can be seen. Proximal exit foramina appear narrowed. The remaining levels exhibit relatively adequate disc height and hydration. No disc herniation or significant disc bulge. Facets are slightly overgrown. Central canal and exit foramina appear adequate. There are also degenerative changes at the T11-T12 and T12-L1 levels. PARASPINAL SOFT TISSUES: Unremarkable. OTHER FINDINGS: There is nodular enlargement of the both adrenal glands of which exhibit low attenuation of. Findings could represent bilateral adrenal adenomas. Followup noncontrast MRI of the adrenal glands could be performed for further evaluation.. Questionable small right renal cyst. IMPRESSION: Unremarkable CT of Lumbar Spine.
--- NOTE | 2018-12-12 14:21 | CT ---
Date of service: 12/12/2018 PROCEDURE: CT Thoracic Spine without contrast HISTORY: Chronic back pain COMPARISON: Correlation made with concurrent CT scan of the lumbar spine. TECHNIQUE: Axial computed tomography images were obtained of the thoracic spine without intravenous contrast. Coronal and sagittal reformatted images were created and reviewed. Radiation dose: Total exam DLP = 2083.58 mGy-cm. This CT exam was performed using one or more of the following dose reduction techniques: Automated exposure control, adjustment of the mA and/or kV according to patient size, and/or use of iterative reconstruction technique. FINDINGS: VERTEBRAE: There is a chronic appearing anterior wedge compression deformity of the T5 segment with minimal of retropulsion of the posterior inferior corner of this segment... This small retropulsed component of results in mild compressive effects on the ventral surface of the thecal sac though the central canal is adequate at this level. There are minor chronic appearing fish-mouth endplate deformities involving the few upper and lower thoracic segments. The remaining vertebral bodies otherwise exhibit normal stature. Vertebral bodies and facets normally aligned. DISCS/SPINAL CANAL/NEURAL FORAMINA: Multilevel degenerative spondylosis. Changes include varying degrees of disc space narrowing, endplate eburnation and anterolateral osteophyte formation. Vacuum disc phenomena seen in several lower thoracic disc space levels.. Aside from the posterior inferior retropulsed of corner of the T5 segment, and mild compressive effects this exerts on the ventral surface of the thecal sac the overall central canal appears adequate at the remaining levels. Exit foramina appear adequate so far as can be seen as well. PARASPINAL SOFT TISSUES: Unremarkable. OTHER FINDINGS: Mild on bibasilar atelectasis and/or scarring changes are present. There is a linear calcific appearing density in the left lung base that is of uncertain etiology though could represent the dystrophic calcification within chronic scar. Suspect mild atelectasis with few air bronchograms in the right middle lobe region. The IMPRESSION: None there is a chronic appearing anterior wedge compression fracture of the T5 segment with minimal retropulsion of the posterior inferior corner of this segment that results in mild compressive effects on the ventral surface of the thecal sac however the overall central canal appears adequate at this level. Additionally, there are mild multilevel fish-mouth endplate deformities involving the few upper and lower thoracic segments with no associated retropulsion of fragments. Mild multilevel degenerative spondylosis. Bibasilar atelectasis and or scarring with suspected atelectasis and some mild air bronchograms in the right middle lobe
--- NOTE | 2018-12-12 17:23 | CP.PCM.PN ---
<Carlos Dempsey - Last Filed: 12/12/18 21:17> Subjective - Date & Time of Evaluation Date of Evaluation: 12/12/18 Time of Evaluation: 17:19 - Subjective Subjective: Carlos Dempsey DO PGY1 - Internal Medicine Cleaner - Cardiology Note for Dr. Jimenez Patient was seen and examined at bedside this afternoon Nausea today w/ 4 episodes of vomitus No CP, SOB, Palpitations; Still has complaints of back pain. Objective - Vital Signs/Intake and Output Vital Signs (last 24 hours): Temp Pulse Resp BP Pulse Ox 97.8 F 63 20 132/81 100 12/12/18 15:48 12/12/18 15:48 12/12/18 15:48 12/12/18 15:48 12/12/18 15:48 Intake and Output: 12/12/18 12/12/18 06:59 18:59 Intake Total 1300 Output Total 1100 Balance 200 - Medications Medications: Current Medications Acetaminophen (Tylenol 325mg Tab) 650 mg PO Q6 PRN PRN Reason: Pain, Mild (1-3) Last Admin: 12/10/18 12:29 Dose: 650 mg Alprazolam (Xanax) 0.25 mg PO DAILY [facility] Stop: 12/16/18 09:01 Last Admin: 12/12/18 09:59 Dose: Not Given Aspirin (Ecotrin) 81 mg PO DAILY [facility] Last Admin: 12/12/18 09:56 Dose: 81 mg Atorvastatin Calcium (Lipitor) 80 mg PO DAILY [facility] Last Admin: 12/12/18 09:59 Dose: 80 mg Bumetanide (Bumex) 1 mg IVP BID [facility] Last Admin: 12/12/18 16:02 Dose: 1 mg Clopidogrel Bisulfate (Plavix) 75 mg PO DAILY [facility] Last Admin: 12/12/18 09:57 Dose: 75 mg Dextrose (Dextrose 50% Inj) 0 ml IV STAT PRN; Protocol PRN Reason: Hypoglycemia Protocol Dextrose (Glutose 15) 0 gm PO ONCE PRN; Protocol PRN Reason: Hypoglycemia Protocol Enoxaparin Sodium (Lovenox) 40 mg SC DAILY [facility]; Protocol Last Admin: 12/12/18 09:55 Dose: 40 mg Gabapentin (Neurontin) 100 mg PO DAILY [facility] Last Admin: 12/12/18 09:57 Dose: 100 mg Glucagon (Glucagen Diagnostic Kit) 0 mg IM STAT PRN; Protocol PRN Reason: Hypoglycemia Protocol Piperacillin Sod/Tazobactam (Sod 3.375 gm/ Sodium Chloride) 100 mls @ 100 mls/hr IVPB Q8H [facility]; Protocol Last Admin: 12/12/18 16:08 Dose: 100 mls/hr Insulin Detemir (Levemir) 8 units SC DAILY [facility] Last Admin: 12/12/18 10:03 Dose: 8 units Insulin Human Regular (Humulin R) 0 units SC ACHS [facility]; Protocol Last Admin: 12/12/18 12:01 Dose: 2 units Lactic Acid (Lac-Hydrin 12% Lotion (225 G)) 1 applic TOP TID [facility] Last Admin: 12/12/18 16:02 Dose: Not Given Lidocaine (Lidoderm) 1 ea TD DAILY [facility] Last Admin: 12/12/18 10:01 Dose: Not Given Metolazone (Zaroxolyn) 5 mg PO DAILY [facility] Last Admin: 12/12/18 09:57 Dose: 5 mg Metoprolol Tartrate (Lopressor) 50 mg PO Q12 [facility] Last Admin: 12/12/18 09:56 Dose: 50 mg Montelukast Sodium (Singulair) 10 mg PO DAILY [facility] Last Admin: 12/12/18 09:58 Dose: 10 mg Morphine Sulfate (Morphine) 1 mg IVP Q4 PRN PRN Reason: Pain, severe (8-10) Last Admin: 12/12/18 01:17 Dose: 1 mg Ondansetron HCl (Zofran Inj) 4 mg IVP Q6 PRN PRN Reason: Nausea/Vomiting Last Admin: 12/12/18 16:01 Dose: 4 mg Pantoprazole Sodium (Protonix Ec Tab) 40 mg PO DAILY@0630 [facility] Last Admin: 12/12/18 08:30 Dose: 40 mg Spironolactone (Aldactone) 12.5 mg PO DAILY [facility] Last Admin: 12/12/18 09:57 Dose: 12.5 mg - Labs Labs: 12/12/18 09:20 12/12/18 09:20 PT 12.5 Seconds (9.8-13.1) 12/01/18 03:04 INR 1.1 12/01/18 03:04 APTT 30.2 Seconds (25.6-37.1) 12/01/18 03:04 - Constitutional Appears: Well, No Acute Distress - Head Exam Head Exam: ATRAUMATIC, NORMOCEPHALIC - Eye Exam Eye Exam: EOMI, PERRL - Respiratory Exam Additional comments: Diminished breath sounds RML/RLL + LLL - Cardiovascular Exam Cardiovascular Exam: RRR, +S1, +S2, Significant systolic murmur - GI/Abdominal Exam GI & Abdominal Exam: Soft, Normal Bowel Sounds - Extremities Exam Additional comments: 3+ pitting edema bilaterally; BL LE warm to touch Improving edema Assessment and Plan (1) Acute CHF (congestive heart failure) Status: Acute (2) Foot infection Status: Acute (3) HTN (hypertension) Status: Acute (4) PVD (peripheral vascular disease) Status: Acute - Assessment and Plan (Free Text) Plan: CT - Thoracic/Lumbar w/ significant degernative changes + compression fx Patient continues to complain of back pain w/ cough; as well as nausea- anti- emetic + analgesic control by primary team Bicarb elevated; possible contraction alkalosis -Will decrease zaroxylyn Start Zaroxylyn 2.5 QD Severe Cardiomyopathy; Aggressive Dialysis Fluid restriction <1000cc/ 24H C/w ASA/Plavix C/w Bumex 1mg BID C/w Lopressor to 50 Q12 C/w Aldactone 12.5 Strict IO - Down to 97KG today Recent BNP improving : 7900<73505 < 72808 < 67845 Medically Manage Severe Patient does not tolerate bipap; re-educate as necessary Cardiac Cath results Severe ; Aortic valve 0.64 Patent left main stent EF 25% Moderate pulm HTN Severe cardiomyopathy Further reccs per Dr. Jimenez <Rm Jimenez - Last Filed: 12/16/18 23:29> Objective - Vital Signs/Intake and Output Vital Signs (last 24 hours): Temp Pulse Resp BP Pulse Ox 98.5 F 64 20 103/83 96 12/16/18 09:03 12/16/18 14:29 12/16/18 09:03 12/16/18 14:29 12/16/18 09:03 - Labs Labs: 12/12/18 09:20 12/12/18 09:20 PT 12.5 Seconds (9.8-13.1) 12/01/18 03:04 INR 1.1 12/01/18 03:04 APTT 30.2 Seconds (25.6-37.1) 12/01/18 03:04 Assessment and Plan (1) Elevated troponin Status: Acute (2) Acute CHF (congestive heart failure) Status: Acute (3) COPD (chronic obstructive pulmonary disease) Status: Acute (4) CAD (coronary artery disease) Status: Acute (5) Diabetic foot ulcer Status: Acute (6) Dyslipidemia Status: Acute (7) HTN (hypertension) Status: Acute (8) PVD (peripheral vascular disease) Status: Acute Attending/Attestation - Attestation I have personally seen and examined this patient.: Yes I have fully participated in the care of the patient.: Yes I have reviewed all pertinent clinical information, including history, physical exam and plan: Yes
[2018-12-13] MEDS: Piperacillin/Tazobact 3.375 GM in Sodium Chloride 0.9% 100 ML IVPB SCH ×3 (05:48→22:28)
[2018-12-13] MEDS: Pantoprazole 40 mg EC Tab PO SCH (05:49)
[2018-12-13] MEDS ORDERED: metOLazone 5 MG TAB PO SCH (09:00)
[2018-12-13] MEDS: Enoxaparin 40 mg Syringe SC SCH (09:43)
[2018-12-13] MEDS: Insulin Detemir 100 Units/ml Inj SC SCH (09:43)
[2018-12-13] MEDS: Lidocaine 5% Patch TD SCH (09:44)
[2018-12-13] MEDS: Insulin Regular 100 units/ml SC SCH ×4 (09:47→22:31)
--- NOTE | 2018-12-13 11:39 | CP.PCM.PN ---
Subjective - Date & Time of Evaluation Date of Evaluation: 12/12/18 Time of Evaluation: 17:40 - Subjective Subjective: On IV abx. Daily Wound care by the City Dispatch Supervisor Objective - Vital Signs/Intake and Output Vital Signs (last 24 hours): Temp Pulse Resp BP Pulse Ox 98.2 F 59 L 20 100/64 100 12/13/18 08:45 12/13/18 09:46 12/13/18 08:45 12/13/18 09:46 12/13/18 08:45 - Medications Medications: Current Medications Acetaminophen (Tylenol 325mg Tab) 650 mg PO Q6 PRN PRN Reason: Pain, Mild (1-3) Last Admin: 12/10/18 12:29 Dose: 650 mg Alprazolam (Xanax) 0.25 mg PO DAILY [facility] Stop: 12/16/18 09:01 Last Admin: 12/13/18 09:55 Dose: 0.25 mg Aspirin (Ecotrin) 81 mg PO DAILY [facility] Last Admin: 12/13/18 09:44 Dose: 81 mg Atorvastatin Calcium (Lipitor) 80 mg PO DAILY [facility] Last Admin: 12/13/18 09:44 Dose: 80 mg Bumetanide (Bumex) 1 mg IVP BID [facility] Last Admin: 12/13/18 09:46 Dose: 1 mg Clopidogrel Bisulfate (Plavix) 75 mg PO DAILY [facility] Last Admin: 12/13/18 09:44 Dose: 75 mg Dextrose (Dextrose 50% Inj) 0 ml IV STAT PRN; Protocol PRN Reason: Hypoglycemia Protocol Dextrose (Glutose 15) 0 gm PO ONCE PRN; Protocol PRN Reason: Hypoglycemia Protocol Enoxaparin Sodium (Lovenox) 40 mg SC DAILY [facility]; Protocol Last Admin: 12/13/18 09:43 Dose: 40 mg Gabapentin (Neurontin) 100 mg PO DAILY [facility] Last Admin: 12/13/18 09:46 Dose: 100 mg Glucagon (Glucagen Diagnostic Kit) 0 mg IM STAT PRN; Protocol PRN Reason: Hypoglycemia Protocol Piperacillin Sod/Tazobactam (Sod 3.375 gm/ Sodium Chloride) 100 mls @ 100 mls/h r IVPB Q8H [facility]; Protocol Last Admin: 12/13/18 05:48 Dose: 100 mls/hr Insulin Detemir (Levemir) 8 units SC DAILY [facility] Last Admin: 12/13/18 09:43 Dose: 8 units Insulin Human Regular (Humulin R) 0 units SC ACHS [facility]; Protocol Last Admin: 12/13/18 09:47 Dose: 2 units Lactic Acid (Lac-Hydrin 12% Lotion (225 G)) 1 applic TOP TID [facility] Last Admin: 12/13/18 09:43 Dose: 1 applic Lidocaine (Lidoderm) 1 ea TD DAILY [facility] Last Admin: 12/13/18 09:44 Dose: 1 ea Metolazone (Zaroxolyn) 2.5 mg PO DAILY [facility] Metoprolol Tartrate (Lopressor) 50 mg PO Q12 [facility] Last Admin: 12/13/18 09:46 Dose: Not Given Montelukast Sodium (Singulair) 10 mg PO DAILY [facility] Last Admin: 12/13/18 09:47 Dose: 10 mg Morphine Sulfate (Morphine) 1 mg IVP Q4 PRN PRN Reason: Pain, severe (8-10) Last Admin: 12/12/18 01:17 Dose: 1 mg Ondansetron HCl (Zofran Inj) 4 mg IVP Q6 PRN PRN Reason: Nausea/Vomiting Last Admin: 12/12/18 16:01 Dose: 4 mg Pantoprazole Sodium (Protonix Ec Tab) 40 mg PO DAILY@0630 [facility] Last Admin: 12/13/18 05:49 Dose: 40 mg Spironolactone (Aldactone) 12.5 mg PO DAILY [facility] Last Admin: 12/13/18 09:45 Dose: 12.5 mg - Labs Labs: 12/12/18 09:20 12/12/18 09:20 PT 12.5 Seconds (9.8-13.1) 12/01/18 03:04 INR 1.1 12/01/18 03:04 APTT 30.2 Seconds (25.6-37.1) 12/01/18 03:04 Assessment and Plan (1) CAD (coronary artery disease) Status: Chronic (2) COPD (chronic obstructive pulmonary disease) Status: Chronic (3) HTN (hypertension) Status: Chronic (4) PVD (peripheral vascular disease) Status: Chronic (5) Severe aortic stenosis Status: Chronic (6) 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
--- NOTE | 2018-12-13 13:13 | CP.PCM.PN ---
Subjective - Date & Time of Evaluation Date of Evaluation: 12/13/18 Time of Evaluation: 08:00 - Subjective Subjective: events noted afeb Objective - Vital Signs/Intake and Output Vital Signs (last 24 hours): Temp Pulse Resp BP Pulse Ox 98.2 F 59 L 20 100/64 100 12/13/18 08:45 12/13/18 09:46 12/13/18 08:45 12/13/18 09:46 12/13/18 08:45 - Medications Medications: Current Medications Acetaminophen (Tylenol 325mg Tab) 650 mg PO Q6 PRN PRN Reason: Pain, Mild (1-3) Last Admin: 12/10/18 12:29 Dose: 650 mg Alprazolam (Xanax) 0.25 mg PO DAILY [facility] Stop: 12/16/18 09:01 Last Admin: 12/13/18 09:55 Dose: 0.25 mg Aspirin (Ecotrin) 81 mg PO DAILY [facility] Last Admin: 12/13/18 09:44 Dose: 81 mg Atorvastatin Calcium (Lipitor) 80 mg PO DAILY [facility] Last Admin: 12/13/18 09:44 Dose: 80 mg Bumetanide (Bumex) 1 mg IVP BID [facility] Last Admin: 12/13/18 09:46 Dose: 1 mg Clopidogrel Bisulfate (Plavix) 75 mg PO DAILY [facility] Last Admin: 12/13/18 09:44 Dose: 75 mg Dextrose (Dextrose 50% Inj) 0 ml IV STAT PRN; Protocol PRN Reason: Hypoglycemia Protocol Dextrose (Glutose 15) 0 gm PO ONCE PRN; Protocol PRN Reason: Hypoglycemia Protocol Enoxaparin Sodium (Lovenox) 40 mg SC DAILY [facility]; Protocol Last Admin: 12/13/18 09:43 Dose: 40 mg Gabapentin (Neurontin) 100 mg PO DAILY [facility] Last Admin: 12/13/18 09:46 Dose: 100 mg Glucagon (Glucagen Diagnostic Kit) 0 mg IM STAT PRN; Protocol PRN Reason: Hypoglycemia Protocol Piperacillin Sod/Tazobactam (Sod 3.375 gm/ Sodium Chloride) 100 mls @ 100 mls/hr IVPB Q8H [facility]; Protocol Last Admin: 12/13/18 05:48 Dose: 100 mls/hr Insulin Detemir (Levemir) 8 units SC DAILY [facility] Last Admin: 12/13/18 09:43 Dose: 8 units Insulin Human Regular (Humulin R) 0 units SC ACHS [facility]; Protocol Last Admin: 12/13/18 09:47 Dose: 2 units Lactic Acid (Lac-Hydrin 12% Lotion (225 G)) 1 applic TOP TID [facility] Last Admin: 12/13/18 09:43 Dose: 1 applic Lidocaine (Lidoderm) 1 ea TD DAILY [facility] Last Admin: 12/13/18 09:44 Dose: 1 ea Metolazone (Zaroxolyn) 2.5 mg PO DAILY [facility] Metoprolol Tartrate (Lopressor) 50 mg PO Q12 [facility] Last Admin: 12/13/18 09:46 Dose: Not Given Montelukast Sodium (Singulair) 10 mg PO DAILY [facility] Last Admin: 12/13/18 09:47 Dose: 10 mg Morphine Sulfate (Morphine) 1 mg IVP Q4 PRN PRN Reason: Pain, severe (8-10) Last Admin: 12/12/18 01:17 Dose: 1 mg Ondansetron HCl (Zofran Inj) 4 mg IVP Q6 PRN PRN Reason: Nausea/Vomiting Last Admin: 12/12/18 16:01 Dose: 4 mg Pantoprazole Sodium (Protonix Ec Tab) 40 mg PO DAILY@0630 [facility] Last Admin: 12/13/18 05:49 Dose: 40 mg Spironolactone (Aldactone) 12.5 mg PO DAILY [facility] Last Admin: 12/13/18 09:45 Dose: 12.5 mg - Labs Labs: 12/12/18 09:20 12/12/18 09:20 PT 12.5 Seconds (9.8-13.1) 12/01/18 03:04 INR 1.1 12/01/18 03:04 APTT 30.2 Seconds (25.6-37.1) 12/01/18 03:04 - Constitutional Appears: Chronically Ill - Head Exam Head Exam: NORMOCEPHALIC - Eye Exam Eye Exam: absent: Scleral icterus - ENT Exam ENT Exam: Mucous Membranes Dry - Neck Exam Neck Exam: absent: Lymphadenopathy - Respiratory Exam Respiratory Exam: Decreased Breath Sounds - Cardiovascular Exam Cardiovascular Exam: REGULAR RHYTHM - GI/Abdominal Exam GI & Abdominal Exam: Distended - Rectal Exam Rectal Exam: Deferred - Exam Exam: NORMAL INSPECTION Assessment and Plan (1) COPD (chronic obstructive pulmonary disease) Status: Acute (2) Chronic congestive heart failure Status: Acute (3) CAD (coronary artery disease) Status: Acute (4) Diabetic foot ulcer Status: Acute (5) Cellulitis and abscess of foot Status: Acute (6) Acute coronary insufficiency syndrome Status: Acute - Assessment and Plan (Free Text) Assessment: c/s + MSSA cont IV rx as ordered
--- NOTE | 2018-12-13 19:13 | CP.PCM.PN ---
<Carlos Dempsey - Last Filed: 12/13/18 19:09> Subjective - Date & Time of Evaluation Date of Evaluation: 12/13/18 Time of Evaluation: 19:09 - Subjective Subjective: Carlos Dempsey DO PGY1 - Internal Medicine [employer] Development Manager - Cardiology Note for Dr. Jimenez Patient was seen and examined at bedside this morning, no acute events overnight. Patient still complaining of mild back pain at this time. Denies any shortness of breath chest pain and palpitations. Objective - Vital Signs/Intake and Output Vital Signs (last 24 hours): Temp Pulse Resp BP Pulse Ox 98.5 F 66 20 104/46 L 100 12/13/18 16:28 12/13/18 16:28 12/13/18 16:28 12/13/18 16:28 12/13/18 16:28 Intake and Output: 12/13/18 12/14/18 18:59 06:59 Intake Total 1400 Output Total 1000 Balance 400 - Medications Medications: Current Medications Acetaminophen (Tylenol 325mg Tab) 650 mg PO Q6 PRN PRN Reason: Pain, Mild (1-3) Last Admin: 12/10/18 12:29 Dose: 650 mg Alprazolam (Xanax) 0.25 mg PO DAILY [facility] Stop: 12/16/18 09:01 Last Admin: 12/13/18 09:55 Dose: 0.25 mg Aspirin (Ecotrin) 81 mg PO DAILY [facility] Last Admin: 12/13/18 09:44 Dose: 81 mg Atorvastatin Calcium (Lipitor) 80 mg PO DAILY [facility] Last Admin: 12/13/18 09:44 Dose: 80 mg Bumetanide (Bumex) 1 mg IVP BID [facility] Last Admin: 12/13/18 17:33 Dose: 1 mg Clopidogrel Bisulfate (Plavix) 75 mg PO DAILY [facility] Last Admin: 12/13/18 09:44 Dose: 75 mg Dextrose (Dextrose 50% Inj) 0 ml IV STAT PRN; Protocol PRN Reason: Hypoglycemia Protocol Dextrose (Glutose 15) 0 gm PO ONCE PRN; Protocol PRN Reason: Hypoglycemia Protocol Enoxaparin Sodium (Lovenox) 40 mg SC DAILY [facility]; Protocol Last Admin: 12/13/18 09:43 Dose: 40 mg Gabapentin (Neurontin) 100 mg PO DAILY [facility] Last Admin: 12/13/18 09:46 Dose: 100 mg Glucagon (Glucagen Diagnostic Kit) 0 mg IM STAT PRN; Protocol PRN Reason: Hypoglycemia Protocol Piperacillin Sod/Tazobactam (Sod 3.375 gm/ Sodium Chloride) 100 mls @ 100 mls/hr IVPB Q8H [facility]; Protocol Last Admin: 12/13/18 14:27 Dose: 100 mls/hr Insulin Detemir (Levemir) 8 units SC DAILY [facility] Last Admin: 12/13/18 09:43 Dose: 8 units Insulin Human Regular (Humulin R) 0 units SC ACHS [facility]; Protocol Last Admin: 12/13/18 17:33 Dose: 4 units Lactic Acid (Lac-Hydrin 12% Lotion (225 G)) 1 applic TOP TID [facility] Last Admin: 12/13/18 17:33 Dose: 1 applic Lidocaine (Lidoderm) 1 ea TD DAILY [facility] Last Admin: 12/13/18 09:44 Dose: 1 ea Metolazone (Zaroxolyn) 2.5 mg PO DAILY [facility] Metoprolol Tartrate (Lopressor) 50 mg PO Q12 [facility] Last Admin: 12/13/18 09:46 Dose: Not Given Montelukast Sodium (Singulair) 10 mg PO DAILY [facility] Last Admin: 12/13/18 09:47 Dose: 10 mg Morphine Sulfate (Morphine) 1 mg IVP Q4 PRN PRN Reason: Pain, severe (8-10) Last Admin: 12/12/18 01:17 Dose: 1 mg Ondansetron HCl (Zofran Inj) 4 mg IVP Q6 PRN PRN Reason: Nausea/Vomiting Last Admin: 12/12/18 16:01 Dose: 4 mg Pantoprazole Sodium (Protonix Ec Tab) 40 mg PO DAILY@0630 [facility] Last Admin: 12/13/18 05:49 Dose: 40 mg Spironolactone (Aldactone) 12.5 mg PO DAILY [facility] Last Admin: 12/13/18 09:45 Dose: 12.5 mg - Labs Labs: 12/12/18 09:20 12/12/18 09:20 PT 12.5 Seconds (9.8-13.1) 12/01/18 03:04 INR 1.1 12/01/18 03:04 APTT 30.2 Seconds (25.6-37.1) 12/01/18 03:04 - Constitutional Appears: Well, No Acute Distress - Head Exam Head Exam: ATRAUMATIC, NORMOCEPHALIC - Eye Exam Eye Exam: EOMI, PERRL - Respiratory Exam Additional comments: Diminished breath sounds RML/RLL + LLL - Cardiovascular Exam Cardiovascular Exam: RRR, +S1, +S2, Significant systolic murmur - GI/Abdominal Exam GI & Abdominal Exam: Soft, Normal Bowel Sounds - Extremities Exam Additional comments: 3+ pitting edema bilaterally; BL LE warm to touch Improving edema Assessment and Plan (1) Acute CHF (congestive heart failure) Status: Acute (2) Foot infection Status: Acute (3) HTN (hypertension) Status: Acute (4) PVD (peripheral vascular disease) Status: Acute - Assessment and Plan (Free Text) Plan: CT - Thoracic/Lumbar w/ significant degernative changes + compression fx Patient no longer complaining of nausea today; Was asking about findings on CT - recommended patient to follow up with outpt primary or outpt neurosurgery 12/12 - Bicarb elevated - suspect contraction alkalosis - Zaroxylyn decreased yesterday Severe Cardiomyopathy; Aggressive Dialysis Fluid restriction <1000cc/ 24H C/w Zaroxylyn 2.5 Daily C/w ASA/Plavix C/w Bumex 1mg BID C/w Lopressor to 50 Q12 C/w Aldactone 12.5 Strict IO - Down to 96KG today 12/12 BNP improving : 7900<20891 < 36364 < 81959 Medically Manage Severe Cardiac Cath results Severe ; Aortic valve 0.64 Patent left main stent EF 25% Moderate pulm HTN Severe cardiomyopathy Further reccs per Dr. Jimenez <Rm Jimenez - Last Filed: 12/16/18 23:29> Objective - Vital Signs/Intake and Output Vital Signs (last 24 hours): Temp Pulse Resp BP Pulse Ox 98.5 F 64 20 103/83 96 12/16/18 09:03 12/16/18 14:29 12/16/18 09:03 12/16/18 14:29 12/16/18 09:03 - Labs Labs: 12/12/18 09:20 12/12/18 09:20 PT 12.5 Seconds (9.8-13.1) 12/01/18 03:04 INR 1.1 12/01/18 03:04 APTT 30.2 Seconds (25.6-37.1) 12/01/18 03:04 Assessment and Plan (1) Elevated troponin Status: Acute (2) Acute CHF (congestive heart failure) Status: Acute (3) COPD (chronic obstructive pulmonary disease) Status: Acute (4) CAD (coronary artery disease) Status: Acute (5) Diabetic foot ulcer Status: Acute (6) Dyslipidemia Status: Acute (7) HTN (hypertension) Status: Acute (8) PVD (peripheral vascular disease) Status: Acute Attending/Attestation - Attestation I have personally seen and examined this patient.: Yes I have fully participated in the care of the patient.: Yes I have reviewed all pertinent clinical information, including history, physical exam and plan: Yes
--- NOTE | 2018-12-13 23:04 | CP.PCM.PN ---
Subjective - Date & Time of Evaluation Date of Evaluation: 12/13/18 Time of Evaluation: 16:45 - Subjective Subjective: No new complaint. Objective - Vital Signs/Intake and Output Vital Signs (last 24 hours): Temp Pulse Resp BP Pulse Ox 98.1 F 65 20 114/66 99 12/13/18 19:14 12/13/18 22:27 12/13/18 19:14 12/13/18 22:27 12/13/18 19:14 Intake and Output: 12/13/18 12/14/18 18:59 06:59 Intake Total 1400 Output Total 1000 Balance 400 - Medications Medications: Current Medications Acetaminophen (Tylenol 325mg Tab) 650 mg PO Q6 PRN PRN Reason: Pain, Mild (1-3) Last Admin: 12/10/18 12:29 Dose: 650 mg Alprazolam (Xanax) 0.25 mg PO DAILY [facility] Stop: 12/16/18 09:01 Last Admin: 12/13/18 09:55 Dose: 0.25 mg Aspirin (Ecotrin) 81 mg PO DAILY [facility] Last Admin: 12/13/18 09:44 Dose: 81 mg Atorvastatin Calcium (Lipitor) 80 mg PO DAILY [facility] Last Admin: 12/13/18 09:44 Dose: 80 mg Bumetanide (Bumex) 1 mg IVP BID [facility] Last Admin: 12/13/18 17:33 Dose: 1 mg Clopidogrel Bisulfate (Plavix) 75 mg PO DAILY [facility] Last Admin: 12/13/18 09:44 Dose: 75 mg Dextrose (Dextrose 50% Inj) 0 ml IV STAT PRN; Protocol PRN Reason: Hypoglycemia Protocol Dextrose (Glutose 15) 0 gm PO ONCE PRN; Protocol PRN Reason: Hypoglycemia Protocol Enoxaparin Sodium (Lovenox) 40 mg SC DAILY [facility]; Protocol Last Admin: 12/13/18 09:43 Dose: 40 mg Gabapentin (Neurontin) 100 mg PO DAILY [facility] Last Admin: 12/13/18 09:46 Dose: 100 mg Glucagon (Glucagen Diagnostic Kit) 0 mg IM STAT PRN; Protocol PRN Reason: Hypoglycemia Protocol Piperacillin Sod/Tazobactam (Sod 3.375 gm/ Sodium Chloride) 100 mls @ 100 mls/hr IVPB Q8H [facility]; Protocol Last Admin: 12/13/18 22:28 Dose: 100 mls/hr Insulin Detemir (Levemir) 8 units SC DAILY [facility] Last Admin: 12/13/18 09:43 Dose: 8 units Insulin Human Regular (Humulin R) 0 units SC [facility]; Protocol Last Admin: 12/13/18 22:31 Dose: Not Given Lactic Acid (Lac-Hydrin 12% Lotion (225 G)) 1 applic TOP TID [facility] Last Admin: 12/13/18 17:33 Dose: 1 applic Lidocaine (Lidoderm) 1 ea TD DAILY [facility] Last Admin: 12/13/18 09:44 Dose: 1 ea Metolazone (Zaroxolyn) 2.5 mg PO DAILY [facility] Metoprolol Tartrate (Lopressor) 50 mg PO Q12 [facility] Last Admin: 12/13/18 22:27 Dose: 50 mg Montelukast Sodium (Singulair) 10 mg PO DAILY [facility] Last Admin: 12/13/18 09:47 Dose: 10 mg Morphine Sulfate (Morphine) 1 mg IVP Q4 PRN PRN Reason: Pain, severe (8-10) Last Admin: 12/12/18 01:17 Dose: 1 mg Ondansetron HCl (Zofran Inj) 4 mg IVP Q6 PRN PRN Reason: Nausea/Vomiting Last Admin: 12/12/18 16:01 Dose: 4 mg Pantoprazole Sodium (Protonix Ec Tab) 40 mg PO DAILY@0630 [facility] Last Admin: 12/13/18 05:49 Dose: 40 mg Spironolactone (Aldactone) 12.5 mg PO DAILY [facility] Last Admin: 12/13/18 09:45 Dose: 12.5 mg - Labs Labs: 12/12/18 09:20 12/12/18 09:20 PT 12.5 Seconds (9.8-13.1) 12/01/18 03:04 INR 1.1 12/01/18 03:04 APTT 30.2 Seconds (25.6-37.1) 12/01/18 03:04 Assessment and Plan (1) Acute CHF (congestive heart failure) Status: Acute (2) Chronic congestive heart failure Status: Chronic (3) Diabetic foot ulcer Status: Acute (4) NSTEMI (non-ST elevated myocardial infarction) Status: Acute (5) CAD (coronary artery disease) Status: Chronic (6) COPD (chronic obstructive pulmonary disease) Status: Chronic (7) Dyslipidemia Status: Chronic (8) HTN (hypertension) Status: Chronic (9) NSTEMI (non-ST elevated myocardial infarction) Status: Chronic (10) PVD (peripheral vascular disease) Status: Chronic (11) Severe aortic stenosis Status: Chronic (12) 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
--- NOTE | 2018-12-14 08:31 | CP.PCM.PN ---
Subjective - Date & Time of Evaluation Date of Evaluation: 12/14/18 Time of Evaluation: 08:31 - Subjective Subjective: Podiatry Progress Note: Dr. Smith 73 yo female patient seen and evaluated at bedside for bilateral lower extremity edema and R leg ulcerations. Patient resting comfortably and in NAD. Patient says she will likely be discharged home on Sunday. She denies any pain to the right leg at this time. Denies F/C/N/V/CP/SOB Objective - Vital Signs/Intake and Output Vital Signs (last 24 hours): Temp Pulse Resp BP Pulse Ox 98.1 F 74 20 144/64 100 12/14/18 08:16 12/14/18 08:16 12/14/18 08:16 12/14/18 08:16 12/14/18 08:16 - Medications Medications: Current Medications Acetaminophen (Tylenol 325mg Tab) 650 mg PO Q6 PRN PRN Reason: Pain, Mild (1-3) Last Admin: 12/14/18 02:48 Dose: 650 mg Alprazolam (Xanax) 0.25 mg PO DAILY [facility] Stop: 12/16/18 09:01 Last Admin: 12/13/18 09:55 Dose: 0.25 mg Aspirin (Ecotrin) 81 mg PO DAILY [facility] Last Admin: 12/13/18 09:44 Dose: 81 mg Atorvastatin Calcium (Lipitor) 80 mg PO DAILY [facility] Last Admin: 12/13/18 09:44 Dose: 80 mg Bumetanide (Bumex) 1 mg IVP BID [facility] Last Admin: 12/13/18 17:33 Dose: 1 mg Clopidogrel Bisulfate (Plavix) 75 mg PO DAILY [facility] Last Admin: 12/13/18 09:44 Dose: 75 mg Dextrose (Dextrose 50% Inj) 0 ml IV STAT PRN; Protocol PRN Reason: Hypoglycemia Protocol Dextrose (Glutose 15) 0 gm PO ONCE PRN; Protocol PRN Reason: Hypoglycemia Protocol Enoxaparin Sodium (Lovenox) 40 mg SC DAILY [facility]; Protocol Last Admin: 12/13/18 09:43 Dose: 40 mg Gabapentin (Neurontin) 100 mg PO DAILY [facility] Last Admin: 12/13/18 09:46 Dose: 100 mg Glucagon (Glucagen Diagnostic Kit) 0 mg IM STAT PRN; Protocol PRN Reason: Hypoglycemia Protocol Piperacillin Sod/Tazobactam (Sod 3.375 gm/ Sodium Chloride) 100 mls @ 100 mls/hr IVPB Q8H [facility]; Protocol Last Admin: 12/13/18 22:28 Dose: 100 mls/hr Insulin Detemir (Levemir) 8 units SC DAILY [facility] Last Admin: 12/13/18 09:43 Dose: 8 units Insulin Human Regular (Humulin R) 0 units SC ACHS [facility]; Protocol Last Admin: 12/13/18 22:31 Dose: Not Given Lactic Acid (Lac-Hydrin 12% Lotion (225 G)) 1 applic TOP TID [facility] Last Admin: 12/13/18 17:33 Dose: 1 applic Lidocaine (Lidoderm) 1 ea TD DAILY [facility] Last Admin: 12/13/18 09:44 Dose: 1 ea Metolazone (Zaroxolyn) 2.5 mg PO DAILY [facility] Metoprolol Tartrate (Lopressor) 50 mg PO Q12 [facility] Last Admin: 12/13/18 22:27 Dose: 50 mg Montelukast Sodium (Singulair) 10 mg PO DAILY [facility] Last Admin: 12/13/18 09:47 Dose: 10 mg Morphine Sulfate (Morphine) 1 mg IVP Q4 PRN PRN Reason: Pain, severe (8-10) Last Admin: 12/12/18 01:17 Dose: 1 mg Ondansetron HCl (Zofran Inj) 4 mg IVP Q6 PRN PRN Reason: Nausea/Vomiting Last Admin: 12/12/18 16:01 Dose: 4 mg Pantoprazole Sodium (Protonix Ec Tab) 40 mg PO DAILY@0630 [facility] Last Admin: 12/13/18 05:49 Dose: 40 mg Spironolactone (Aldactone) 12.5 mg PO DAILY [facility] Last Admin: 12/13/18 09:45 Dose: 12.5 mg - Labs Labs: 12/12/18 09:20 12/12/18 09:20 PT 12.5 Seconds (9.8-13.1) 12/01/18 03:04 INR 1.1 12/01/18 03:04 APTT 30.2 Seconds (25.6-37.1) 12/01/18 03:04 - Constitutional Appears: Well, Non-toxic, No Acute Distress - Extremities Exam Additional comments: Vasc: DP/PT pulses are non-palpable bilaterally. Cap refill time < 3 sec to all digits. Skin temperature gradient warm to warm. +1 edema noted extending from foot proximally to the mid leg level bilaterally Ortho: Mild pain on palpation to legs, pain upon ROM bilateral LE. No pain on palpation of the calf B/L Neuro: Gross sensation intact, protective sensation absent Derm: RLE: Circular ulceration, stage 3, measuring approximately 5.0 x4.5cm x 1cm, extending into subcutaneous tissue noted to R heel with fibrous base, mild ma lodor, + serous drainage, no purulence appreciated. No tunneling or tracking appreciated. No probe to bone. Additional ulceration, stage 2, measuring approximately 1cm x 1cm x 0.1 cm noted to the plantar aspect of hallux. Additional ulceration appreciated to the posterior aspect of the lower right leg measuring approximately 2cm x 1.5cm x 0.1 cm, stage 1 with mild erythema and fragile skin. LLE: DTI to left plantar heel, stage 0, no open lesions, no drainage, no clinical signs of infection - Neurological Exam Neurological Exam: Alert, Awake, Oriented x3 - Psychiatric Exam Psychiatric exam: Normal Affect, Normal Mood Assessment and Plan - Assessment and Plan (Free Text) Assessment: 73 year old female patient, with bilateral lower extremity edema and R ulcerations secondary to pressure and edema Plan: Patient seen and evaluated Discussed patient plan with Dr. Smith Continue with IV abx per ID recs: Zosyn Wound culture R plantar heel: S. aureus Local wound care: R ulceration cleansed with Dakins solution and dressed with Dakins, ABD, DSD; L plantar DTI dressed with optifoam No podiatric surgical intervention at this time, continue with local wound care Multipodus boots to remain on at all times in bed Will continue to follow patient Stable from podiatry standpoint
[2018-12-14] MEDS: Insulin Regular 100 units/ml SC SCH ×4 (10:06→22:15)
[2018-12-14] MEDS: Insulin Detemir 100 Units/ml Inj SC SCH (10:08)
[2018-12-14] MEDS: Lidocaine 5% Patch TD SCH ×2 (10:09→10:25)
[2018-12-14] MEDS: Enoxaparin 40 mg Syringe SC SCH (10:11)
[2018-12-14] MEDS: Pantoprazole 40 mg EC Tab PO SCH (10:12)
[2018-12-14] MEDS: metOLazone 2.5 MG TAB PO SCH (10:13)
[2018-12-14] MEDS: Piperacillin/Tazobact 3.375 GM in Sodium Chloride 0.9% 100 ML IVPB SCH ×2 (15:31→22:09)
--- NOTE | 2018-12-14 23:01 | CP.PCM.PN ---
Subjective - Date & Time of Evaluation Date of Evaluation: 12/14/18 Time of Evaluation: 17:15 - Subjective Subjective: No New complaint. Objective - Vital Signs/Intake and Output Vital Signs (last 24 hours): Temp Pulse Resp BP Pulse Ox 98.1 F 68 18 103/62 100 12/14/18 20:54 12/14/18 21:30 12/14/18 20:54 12/14/18 21:30 12/14/18 20:54 Intake and Output: 12/14/18 12/15/18 18:59 06:59 Intake Total 960 Output Total 800 Balance 160 - Medications Medications: Current Medications Acetaminophen (Tylenol 325mg Tab) 650 mg PO Q6 PRN PRN Reason: Pain, Mild (1-3) Last Admin: 12/14/18 02:48 Dose: 650 mg Aspirin (Ecotrin) 81 mg PO DAILY [facility] Last Admin: 12/14/18 10:05 Dose: 81 mg Atorvastatin Calcium (Lipitor) 80 mg PO DAILY [facility] Last Admin: 12/14/18 12:26 Dose: 80 mg Bumetanide (Bumex) 1 mg IVP BID [facility] Last Admin: 12/14/18 16:39 Dose: 1 mg Clopidogrel Bisulfate (Plavix) 75 mg PO DAILY [facility] Last Admin: 12/14/18 10:02 Dose: 75 mg Dextrose (Dextrose 50% Inj) 0 ml IV STAT PRN; Protocol PRN Reason: Hypoglycemia Protocol Dextrose (Glutose 15) 0 gm PO ONCE PRN; Protocol PRN Reason: Hypoglycemia Protocol Enoxaparin Sodium (Lovenox) 40 mg SC DAILY [facility]; Protocol Last Admin: 12/14/18 10:11 Dose: 40 mg Gabapentin (Neurontin) 100 mg PO DAILY [facility] Last Admin: 12/14/18 10:12 Dose: 100 mg Glucagon (Glucagen Diagnostic Kit) 0 mg IM STAT PRN; Protocol PRN Reason: Hypoglycemia Protocol Piperacillin Sod/Tazobactam (Sod 3.375 gm/ Sodium Chloride) 100 mls @ 100 mls/hr IVPB Q8H [facility]; Protocol Last Admin: 12/14/18 22:09 Dose: 100 mls/hr Insulin Detemir (Levemir) 8 units SC DAILY [facility] Last Admin: 12/14/18 10:08 Dose: 8 units Insulin Human Regular (Humulin R) 0 units SC ACHS [facility]; Protocol Last Admin: 12/14/18 22:15 Dose: Not Given Lactic Acid (Lac-Hydrin 12% Lotion (225 G)) 1 applic TOP TID [facility] Last Admin: 12/14/18 16:46 Dose: Not Given Lidocaine (Lidoderm) 1 ea TD DAILY [facility] Last Admin: 12/14/18 10:25 Dose: Not Given Metolazone (Zaroxolyn) 2.5 mg PO DAILY [facility] Last Admin: 12/14/18 10:13 Dose: 2.5 mg Metoprolol Tartrate (Lopressor) 50 mg PO Q12 [facility] Last Admin: 12/14/18 21:30 Dose: 50 mg Montelukast Sodium (Singulair) 10 mg PO DAILY [facility] Last Admin: 12/14/18 10:12 Dose: 10 mg Ondansetron HCl (Zofran Inj) 4 mg IVP Q6 PRN PRN Reason: Nausea/Vomiting Last Admin: 12/12/18 16:01 Dose: 4 mg Pantoprazole Sodium (Protonix Ec Tab) 40 mg PO DAILY@0630 [facility] Last Admin: 12/14/18 10:12 Dose: 40 mg Sodium Hypochlorite (Dakins Solution 0.25%) 0 ml TOP DAILY [facility] Spironolactone (Aldactone) 12.5 mg PO DAILY [facility] Last Admin: 12/14/18 10:03 Dose: 12.5 mg - Labs Labs: 12/12/18 09:20 12/12/18 09:20 PT 12.5 Seconds (9.8-13.1) 12/01/18 03:04 INR 1.1 12/01/18 03:04 APTT 30.2 Seconds (25.6-37.1) 12/01/18 03:04 Assessment and Plan (1) Acute CHF (congestive heart failure) Status: Acute (2) Diabetic foot ulcer Status: Acute (3) Foot infection Status: Acute (4) NSTEMI (non-ST elevated myocardial infarction) Status: Acute (5) CAD (coronary artery disease) Status: Chronic (6) COPD (chronic obstructive pulmonary disease) Status: Chronic (7) Cardiomyopathy Status: Chronic (8) Dyslipidemia Status: Chronic (9) HTN (hypertension) Status: Chronic (10) NSTEMI (non-ST elevated myocardial infarction) Status: Chronic (11) PVD (peripheral vascular disease) Status: Chronic (12) Severe aortic stenosis Status: Chronic (13) 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
[2018-12-15] MEDS: Piperacillin/Tazobact 3.375 GM in Sodium Chloride 0.9% 100 ML IVPB SCH ×3 (05:56→22:20)
[2018-12-15] MEDS: Pantoprazole 40 mg EC Tab PO SCH (05:57)
[2018-12-15] MEDS ORDERED: Dakin's Topical 0.25%-Half Strength (480 ml) TOP SCH (09:00)
[2018-12-15] MEDS: Dakin's Topical 0.25%-Half Strength (480 ml) TOP SCH (09:34)
[2018-12-15] MEDS: Insulin Regular 100 units/ml SC SCH ×5 (09:35→23:53)
[2018-12-15] MEDS: Insulin Detemir 100 Units/ml Inj SC SCH (09:38)
[2018-12-15] MEDS: Lidocaine 5% Patch TD SCH (09:40)
[2018-12-15] MEDS: Enoxaparin 40 mg Syringe SC SCH (09:47)
[2018-12-15] MEDS: metOLazone 2.5 MG TAB PO SCH (09:49)
[2018-12-16 00:36] VITALS: RESP 20
[2018-12-16] MEDS: Pantoprazole 40 mg EC Tab PO SCH (05:47)
[2018-12-16] MEDS: Piperacillin/Tazobact 3.375 GM in Sodium Chloride 0.9% 100 ML IVPB SCH (05:47)
--- NOTE | 2018-12-16 09:01 | CP.PCM.PN ---
<Carlos Dempsey - Last Filed: 12/16/18 10:33> Subjective - Date & Time of Evaluation Date of Evaluation: 12/16/18 Time of Evaluation: 09:01 - Subjective Subjective: Carlos Dempsey DO PGY1 - Internal Medicine [employer] - Cardiology Note for Dr. Jimenez Patient was seen and evaluated at bedside this morning. Denies CP, SOB, Palpitations; does continue to complain of back pain. Objective - Vital Signs/Intake and Output Vital Signs (last 24 hours): Temp Pulse Resp BP Pulse Ox 98.6 F 63 20 115/69 95 12/16/18 05:00 12/16/18 05:00 12/16/18 05:00 12/16/18 05:00 12/16/18 05:00 - Medications Medications: Current Medications Bumetanide (Bumex) 1 mg IVP BID [facility] Last Admin: 12/15/18 16:47 Dose: 1 mg Diphenhydramine HCl (Benadryl) 25 mg PO Q6 PRN PRN Reason: Itching / Pruritus Last Admin: 12/15/18 16:48 Dose: 25 mg Piperacillin Sod/Tazobactam (Sod 3.375 gm/ Sodium Chloride) 100 mls @ 100 mls/ hr IVPB Q8H [facility]; Protocol Last Admin: 12/16/18 05:47 Dose: 100 mls/hr Insulin Detemir (Levemir) 8 units SC DAILY [facility] Last Admin: 12/15/18 09:38 Dose: 8 units Insulin Human Regular (Humulin R) 0 units SC ACHS [facility]; Protocol Last Admin: 12/15/18 23:53 Dose: Not Given Lidocaine (Lidoderm) 1 ea TD DAILY [facility] Last Admin: 12/15/18 09:40 Dose: 1 ea Metolazone (Zaroxolyn) 2.5 mg PO DAILY [facility] Last Admin: 12/15/18 09:49 Dose: 2.5 mg Metoprolol Tartrate (Lopressor) 50 mg PO Q12 [facility] Last Admin: 12/15/18 22:21 Dose: 50 mg Ondansetron HCl (Zofran Inj) 4 mg IVP Q6 PRN PRN Reason: Nausea/Vomiting Last Admin: 12/12/18 16:01 Dose: 4 mg Pantoprazole Sodium (Protonix Ec Tab) 40 mg PO DAILY@0630 [facility] Last Admin: 12/16/18 05:47 Dose: 40 mg Sodium Hypochlorite (Dakins Solution 0.25%) 0 ml TOP DAILY [facility] Last Admin: 12/15/18 09:34 Dose: 1 applic Spironolactone (Aldactone) 12.5 mg PO DAILY [facility] Last Admin: 12/15/18 09:24 Dose: 12.5 mg - Labs Labs: 12/12/18 09:20 12/12/18 09:20 PT 12.5 Seconds (9.8-13.1) 12/01/18 03:04 INR 1.1 12/01/18 03:04 APTT 30.2 Seconds (25.6-37.1) 12/01/18 03:04 - Constitutional Appears: Well, No Acute Distress - Head Exam Head Exam: ATRAUMATIC, NORMOCEPHALIC - Eye Exam Eye Exam: EOMI, PERRL - Respiratory Exam Additional comments: Diminished breath sounds RML/RLL + LLL - Cardiovascular Exam Cardiovascular Exam: RRR, +S1, +S2, Significant systolic murmur - GI/Abdominal Exam GI & Abdominal Exam: Soft, Normal Bowel Sounds - Extremities Exam Additional comments: 3+ pitting edema bilaterally; BL LE warm to touch Improving edema Assessment and Plan (1) Acute CHF (congestive heart failure) Status: Acute (2) Foot infection Status: Acute (3) HTN (hypertension) Status: Acute (4) PVD (peripheral vascular disease) Status: Acute - Assessment and Plan (Free Text) Plan: CT - Thoracic/Lumbar w/ significant degernative changes + compression fx Patient no longer complaining of nausea today; Was asking about findings on CT - recommended patient to follow up with outpt primary or outpt neurosurgery Severe Cardiomyopathy; Aggressive Dialysis Fluid restriction <1000cc/ 24H Na+ Restricted diet C/w Zaroxylyn 2.5 Daily C/w ASA/Plavix C/w Bumex 1mg BID C/w Lopressor to 50 Q12 C/w Aldactone 12.5 Strict IO - Down to 92KG today 12/12 BNP improving : 7900<98097 < 51238 < 74463 Medically Manage Severe Cardiac Cath results Severe ; Aortic valve 0.64 Patent left main stent EF 25% Moderate pulm HTN Severe cardiomyopathy Further reccs per Dr. Jimenez <Rm Jimenez - Last Filed: 12/16/18 23:28> Objective - Vital Signs/Intake and Output Vital Signs (last 24 hours): Temp Pulse Resp BP Pulse Ox 98.5 F 64 20 103/83 96 12/16/18 09:03 12/16/18 14:29 12/16/18 09:03 12/16/18 14:29 12/16/18 09:03 - Labs Labs: 12/12/18 09:20 12/12/18 09:20 PT 12.5 Seconds (9.8-13.1) 12/01/18 03:04 INR 1.1 12/01/18 03:04 APTT 30.2 Seconds (25.6-37.1) 12/01/18 03:04 Assessment and Plan (1) Elevated troponin Status: Acute (2) Acute CHF (congestive heart failure) Status: Acute (3) COPD (chronic obstructive pulmonary disease) Status: Acute (4) CAD (coronary artery disease) Status: Acute (5) Diabetic foot ulcer Status: Acute (6) Dyslipidemia Status: Acute (7) HTN (hypertension) Status: Acute (8) PVD (peripheral vascular disease) Status: Acute Attending/Attestation - Attestation I have personally seen and examined this patient.: Yes I have fully participated in the care of the patient.: Yes I have reviewed all pertinent clinical information, including history, physical exam and plan: Yes
[2018-12-16 09:04] VITALS: PULSE 64; TEMP 98.5; O2SAT 96
--- NOTE | 2018-12-16 11:52 | CP.PCM.PN ---
Subjective - Date & Time of Evaluation Date of Evaluation: 12/16/18 Time of Evaluation: 11:51 - Subjective Subjective: Podiatry Progress Note: Dr. Smith 73 yo female patient seen and evaluated at bedside for bilateral lower extremity edema and R leg ulcerations. Patient resting comfortably and in NAD. She denies any pain to the right leg at this time. Denies F/C/N/V/CP/SOB Objective - Vital Signs/Intake and Output Vital Signs (last 24 hours): Temp Pulse Resp BP Pulse Ox 98.5 F 64 20 109/70 96 12/16/18 09:03 12/16/18 09:03 12/16/18 09:03 12/16/18 09:03 12/16/18 09:03 - Medications Medications: Current Medications Bumetanide (Bumex) 1 mg IVP BID [facility] Last Admin: 12/15/18 16:47 Dose: 1 mg Diphenhydramine HCl (Benadryl) 25 mg PO Q6 PRN PRN Reason: Itching / Pruritus Last Admin: 12/15/18 16:48 Dose: 25 mg Piperacillin Sod/Tazobactam (Sod 3.375 gm/ Sodium Chloride) 100 mls @ 100 mls/hr IVPB Q8H [facility]; Protocol Last Admin: 12/16/18 05:47 Dose: 100 mls/hr Insulin Detemir (Levemir) 8 units SC DAILY [facility] Last Admin: 12/15/18 09:38 Dose: 8 units Insulin Human Regular (Humulin R) 0 units SC ACHS [facility]; Protocol Last Admin: 12/15/18 23:53 Dose: Not Given Lidocaine (Lidoderm) 1 ea TD DAILY [facility] Last Admin: 12/15/18 09:40 Dose: 1 ea Metolazone (Zaroxolyn) 2.5 mg PO DAILY [facility] Last Admin: 12/15/18 09:49 Dose: 2.5 mg Metoprolol Tartrate (Lopressor) 50 mg PO Q12 [facility] Last Admin: 12/15/18 22:21 Dose: 50 mg Ondansetron HCl (Zofran Inj) 4 mg IVP Q6 PRN PRN Reason: Nausea/Vomiting Last Admin: 12/12/18 16:01 Dose: 4 mg Pantoprazole Sodium (Protonix Ec Tab) 40 mg PO DAILY@0630 [facility] Last Admin: 12/16/18 05:47 Dose: 40 mg Sodium Hypochlorite (Dakins Solution 0.25%) 0 ml TOP DAILY [facility] Last Admin: 12/15/18 09:34 Dose: 1 applic Spironolactone (Aldactone) 12.5 mg PO DAILY [facility] Last Admin: 12/15/18 09:24 Dose: 12.5 mg - Labs Labs: 12/12/18 09:20 12/12/18 09:20 PT 12.5 Seconds (9.8-13.1) 12/01/18 03:04 INR 1.1 12/01/18 03:04 APTT 30.2 Seconds (25.6-37.1) 12/01/18 03:04 - Constitutional Appears: Well, Non-toxic, No Acute Distress - Head Exam Head Exam: ATRAUMATIC, NORMOCEPHALIC - Eye Exam Eye Exam: Normal appearance Pupil Exam: NORMAL ACCOMODATION - Extremities Exam Additional comments: Vasc: DP/PT pulses are non-palpable bilaterally. Cap refill time < 3 sec to all digits. Skin temperature gradient warm to warm. +1 edema noted extending from foot proximally to the mid leg level bilaterally Ortho: Mild pain on palpation to legs, pain upon ROM bilateral LE. No pain on palpation of the calf B/L Neuro: Gross sensation intact, protective sensation absent Derm: RLE: Circular ulceration, stage 3, measuring approximately 5.0 x4.5cm x 1cm, extending into subcutaneous tissue noted to R heel with fibrous base, mild malodor, + serous drainage, no purulence appreciated. No tunneling or tracking appreciated. No probe to bone. Additional ulceration, stage 2, measuring approximately 1cm x 1cm x 0.1 cm noted to the plantar aspect of hallux. Additional ulceration appreciated to the posterior aspect of the lower right leg measuring approximately 2cm x 1.5cm x 0.1 cm, stage 1 with mild erythema and fragile skin. LLE: DTI to left plantar heel, stage 0, no open lesions, no drainage, no clinical signs of infection Assessment and Plan - Assessment and Plan (Free Text) Assessment: 73 year old female patient, with bilateral lower extremity edema and R ulcerations secondary to pressure and edema Plan: Patient seen and evaluated Discussed patient plan with Dr. Smith Continue with IV abx per ID recs: Zosyn Wound culture R plantar heel: S. aureus Local wound care: R ulceration cleansed with Dakins solution and dressed with Dakins, ABD, DSD; L plantar DTI dressed with optifoam No podiatric surgical intervention at this time, continue with local wound care Multipodus boots to remain on at all times in bed Will continue to follow patient Stable from podiatry standpoint
--- NOTE | 2018-12-16 12:16 | CP.PCM.PCO ---
Assessment & Plan - Assessment and Plan (Free Text) Assessment: pt. doing well this morning, denies cp, sob, dizziness pt. cleared for dc to home today by pt. to cont . Keflex 500 mg po bid for 4 more weeks cont. all current meds Erx sent to [facility] pharmacy f/u with ,
[2018-12-16] MEDS: Dakin's Topical 0.25%-Half Strength (480 ml) TOP SCH (13:56)
--- NOTE | 2018-12-16 14:04 | CP.PCM.PCO ---
Physician Communication Note - Physician Communication Note Physician Communication Note: Picc line to LUE d/c'd, tip intact, pressure dsg applied, no bleeding noted
[2018-12-16] MEDS: Insulin Regular 100 units/ml SC SCH ×2 (14:10→14:11)
[2018-12-16] MEDS: Lidocaine 5% Patch TD SCH (14:15)
[2018-12-16] MEDS: Insulin Detemir 100 Units/ml Inj SC SCH (14:17)
[2018-12-16] MEDS: metOLazone 2.5 MG TAB PO SCH (14:22)
[2018-12-16 14:30] VITALS: BP 103/83
--- NOTE | 2018-12-17 05:48 | CP.PCM.PN ---
Subjective - Date & Time of Evaluation Date of Evaluation: 12/15/18 Time of Evaluation: 19:20 - Subjective Subjective: No new complaint. D/w ID and will D/c home on PO Keflex for 4 weeks. Referred to SW for Advance d/c planning for tomorrow. 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
--- NOTE | 2018-12-17 05:51 | CP.PCM.DIS ---
Provider - Provider Date of Admission: 12/02/18 13:20 Attending physician: Tara Nam MD Consults: 12/01/18 07:15 Podiatry Consult Routine Comment: Consulting Provider: China Baker Consulting Physician: China Baker Reason for Consult: BL Statis dermatitis w/ chronic ulcers, recent hx of Osteomyelitis 12/01/18 11:11 Case Management Referral Routine Comment: Physician Instructions: Reason For Exam: Reason for Referral: Discharge Planning Nursing Referral for Palliative Care Routine Comment: Consulting Provider: Physician Instructions: Reason For Exam: Nursing assessement Nursing Referral for Wound Care Routine Comment: Bilateral lower extremity red, swollen tough skin Physician Instructions: Reason For Exam: Righe heel unstagable wound, sacrum redness 12/01/18 11:57 Cardiology Consult Routine Comment: Consulting Provider: Rm Valera Consulting Physician: Rm Valera Reason for Consult: CHF, PVD 12/02/18 13:19 Infectious Disease Consult Routine Comment: Consulting Provider: Ryan Mix Consulting Physician: Ryan Mix Reason for Consult: leg ulcers Time Spent in preparation of Discharge (in minutes): 25 Diagnosis - Discharge Diagnosis (1) CAD (coronary artery disease) Status: Acute (2) Cellulitis and abscess of foot Status: Acute (3) Diabetic foot ulcer Status: Acute (4) HTN (hypertension) Status: Acute (5) NSTEMI (non-ST elevated myocardial infarction) Status: Acute Priority: High (6) PVD (peripheral vascular disease) Status: Acute Priority: High (7) Severe aortic stenosis Status: Chronic (8) Cardiomyopathy Status: Chronic Hospital Course - Lab Results Lab Results: Micro Results 12/06/18 16:48 Foot - Right Gram Stain - Final 12/06/18 16:48 Foot - Right Wound Culture - Final Staphylococcus Aureus 12/03/18 06:01 Blood Blood Culture - Final NO GROWTH AFTER 5 DAYS 12/03/18 06:01 Blood Gram Stain - Final TEST NOT PERFORMED 12/03/18 05:45 Blood Blood Culture - Final NO GROWTH AFTER 5 DAYS 12/03/18 05:45 Blood Gram Stain - Final TEST NOT PERFORMED 12/03/18 12:50 Urine Random Urine Culture - Final 10-50,000 CFU/ML. MULTIPLE SPECIES. PROBABLE CONTAMINATION. Most Recent Lab Values WBC 7.7 K/uL (4.8-10.8) 12/12/18 09:20 RBC 3.40 Mil/uL (3.80-5.20) L 12/12/18 09:20 Hgb 9.8 g/dL (12.0-16.0) L 12/12/18 09:20 Hct 31.2 % (34.0-47.0) L 12/12/18 09:20 MCV 91.6 fl (81.0-99.0) 12/12/18 09:20 MCH 28.9 pg (27.0-31.0) 12/12/18 09:20 MCHC 31.6 g/dL (33.0-37.0) L 12/12/18 09:20 RDW 16.2 % (11.5-14.5) H 12/12/18 09:20 Plt Count 262 K/uL (130-400) 12/12/18 09:20 MPV 8.0 fl (7.2-11.7) 12/12/18 09:20 Neut % (Auto) 74.4 % (50.0-75.0) 12/12/18 09:20 Lymph % (Auto) 15.8 % (20.0-40.0) L 12/12/18 09:20 [place] % (Auto) 5.1 % (0.0-10.0) 12/12/18 09:20 Eos % (Auto) 4.3 % (0.0-4.0) H 12/12/18 09:20 Baso % (Auto) 0.4 % (0.0-2.0) 12/12/18 09:20 Neut # (Auto) 5.7 K/uL (1.8-7.0) 12/12/18 09:20 Lymph # (Auto) 1.2 K/uL (1.0-4.3) 12/12/18 09:20 [place] # (Auto) 0.4 K/uL (0.0-0.8) 12/12/18 09:20 Eos # (Auto) 0.3 K/uL (0.0-0.7) 12/12/18 09:20 Baso # (Auto) 0.0 K/uL (0.0-0.2) 12/12/18 09:20 Neutrophils % (Manual) 86 % (42-75) H 12/01/18 03:04 Lymphocytes % (Manual) 8 % (20-50) L 12/01/18 03:04 Monocytes % (Manual) 5 % (0-10) 12/01/18 03:04 Eosinophils % (Manual) 1 % (0-7) 12/01/18 03:04 Hypersegmented Polys Present 12/01/18 03:04 Toxic Granulation Present 12/01/18 03:04 Platelet Estimate Normal (NORMAL) 12/01/18 03:04 Hypochromasia (manual) Moderate 12/01/18 03:04 Anisocytosis (manual) Slight 12/01/18 03:04 Rouleaux Slight 12/01/18 03:04 ESR 71 mm/hr (0-30) H 12/01/18 18:30 PT 12.5 Seconds (9.8-13.1) 12/01/18 03:04 INR 1.1 12/01/18 03:04 APTT 30.2 Seconds (25.6-37.1) 12/01/18 03:04 Sodium 139 mmol/l (132-148) 12/12/18 09:20 Potassium 4.0 MMOL/L (3.6-5.0) 12/12/18 09:20 Chloride 90 mmol/L (98-107) L 12/12/18 09:20 Carbon Dioxide 37 mmol/L (22-30) H 12/12/18 09:20 Anion Gap 16 (10-20) 12/12/18 09:20 BUN 25 mg/dl (7-17) H 12/12/18 09:20 Creatinine 0.9 mg/dl (0.7-1.2) 12/12/18 09:20 Est GFR ( Amer) > 60 12/12/18 09:20 Est GFR (Non-Af Amer) > 60 12/12/18 09:20 POC Glucose (mg/dL) 293 mg/dL (65-110) H 12/16/18 11:07 Random Glucose 179 mg/dL (65-105) H 12/12/18 09:20 Lactic Acid 1.8 MMOL/L (0.7-2.1) 12/01/18 03:04 Calcium 9.6 mg/dL (8.4-10.2) 12/12/18 09:20 Phosphorus 4.4 mg/dl (2.5-4.5) 12/12/18 09:20 Magnesium 1.6 MG/DL (1.6-2.3) 12/12/18 09:20 Total Bilirubin 0.9 mg/dl (0.2-1.3) 12/12/18 09:20 AST 19 U/L (14-36) 12/12/18 09:20 ALT 23 U/L (9-52) 12/12/18 09:20 Alkaline Phosphatase 128 U/L (38-126) H 12/12/18 09:20 Troponin I 1.0000 ng/mL (0.00-0.120) H* 12/03/18 04:30 NT-Pro-B Natriuret Pep 7940 pg/ml (0-900) H 12/12/18 08:40 Total Protein 7.8 G/DL (6.3-8.2) 12/12/18 09:20 Albumin 3.6 g/dL (3.5-5.0) 12/12/18 09:20 Globulin 4.1 gm/dL (2.2-3.9) H 12/12/18 09:20 Albumin/Globulin Ratio 0.9 (1.0-2.1) L 12/12/18 09:20 Procalcitonin < 0.05 NG/ML (0.19-0.49) L 12/09/18 04:25 Urine Color Casie (YELLOW) 12/03/18 12:50 Urine Clarity Cloudy (Clear) 12/03/18 12:50 Urine pH 5.0 (5.0-8.0) 12/03/18 12:50 Ur Specific [place] 1.023 (1.003-1.030) 12/03/18 12:50 Urine Protein Negative mg/dL (NEGATIVE) 12/03/18 12:50 Urine Glucose (UA) Neg mg/dL (NEGATIVE) 12/03/18 12:50 Urine Ketones Negative mg/dL (NEGATIVE) 12/03/18 12:50 Urine Blood Negative (NEGATIVE) 12/03/18 12:50 Urine Nitrate Negative (NEGATIVE) 12/03/18 12:50 Urine Bilirubin Negative (NEGATIVE) 12/03/18 12:50 Urine Urobilinogen 4.0 mg/dL (0.2-1.0) H 12/03/18 12:50 Ur Leukocyte Esterase Neg Hiram/uL (Negative) 12/03/18 12:50 Urine RBC (Auto) 3 /hpf (0-3) 12/03/18 12:50 Urine Microscopic WBC 4 /hpf (0-5) 12/03/18 12:50 Ur Squamous Epith Cells 12 /hpf (0-5) H 12/03/18 12:50 Urine Bacteria Few (<OCC) H 12/03/18 12:50 Vancomycin Trough 8.8 ug/mL (5.0-10.0) 12/05/18 05:05 Discharge Exam - Head Exam Head Exam: ATRAUMATIC, NORMOCEPHALIC Discharge Plan - Discharge Medications Prescriptions: Bumetanide [Bumex] 1 mg PO BID #60 tab Cephalexin [Keflex] 500 mg PO BID #56 capsule Lidocaine 5% [Lidoderm] 1 ea TD DAILY #30 patch Metoprolol Tartrate [Lopressor] 50 mg PO Q12 #60 tab metOLazone [Zaroxolyn] 2.5 mg PO DAILY #30 tab - Follow Up Plan Condition: STABLE Disposition: DISCHARGED TO HOME CARE Instructions: Heart Failure, Adult (DC), Cellulitis (Skin Infection), Adult (DC) Additional Instructions: [facility]: [phone] follow up with PMD in 1 week [facility]:[phone] appointment made for december 25. appointment made for dr valera-dental office coordinator for dec 19 at 9am at [address] [place] [address]. [phone] Referrals: Rm Valera MD [Staff Provider] - Ryan Mix MD [Staff Provider] - Tara Nam MD [Family Provider] - China Bkaer DPM [Staff Provider] -
--- NOTE | 2018-12-18 15:38 | PQF ---
PROVIDER RESPONSE TEXT: Anemia REVIEWER QUERY TEXT: Clarification of Clinical Diagnostic Findings HGB: 9.0, 8.5, 8.0, 9.5 HCT: 28.2, 26.1, 24.9, 29.3 MCV and MCH normal Please clarify documentation or clinical relevance for the clinical / diagnostic findings or whether those are insignificant or unable to be further specified. The patient's Clinical Indicators include: HGB: 9.0, 8.5, 8.0, 9.5 HCT: 28.2, 26.1, 24.9, 29.3 MCV and MCH normal Query created by: Simran Kc on 12/10/2018 8:52 AM Electronically signed by: Tara Nam MD 12/18/2018 3:35 PM
--- NOTE | 2018-12-18 15:38 | PQF ---
PROVIDER RESPONSE TEXT: Diabetes with hyperglycemia REVIEWER QUERY TEXT: Diabetic Associated Manifestations Please specify any manifestations associated / due to diabetes Such as: -- Diabetes with hypoglycemia -- Diabetes with hyperglycemia -- Diabetes with renal manifestation please specify -- Diabetes with neurologic manifestation please specify -- Diabetes with ophthalmic manifestation please specify -- Diabetes with peripheral circulatory manifestation please specify -- Other, please specify The patient's Clinical Indicators include: Documentation of DM II. Glucose runnin, 170, 65, 67, 161, 180, 183, 109, 234 ... Rx: Accuchecks, Insulin Query created by: Simran Kc on 12/10/2018 8:49 AM Electronically signed by: Tara Nam MD 12/18/2018 3:35 PM
== END 2018-12-16 14:40 | disposition home health service (06) | DRG 280 ==
LOC: H.ER 01:57 → H.ERHOLD 05:03 → H.TEL 06:16 → OBSVTOIN 12-02 13:20
PROVIDERS: ADMIT Internal Medicine; ATTEND Internal Medicine
PROC: 02HV33Z Insertion of Infusion Device into Superior Vena Cava, Percutaneous Approach (ICD-10-PCS; 2018-12-03)
PROC: B518ZZA Fluoroscopy of Superior Vena Cava, Guidance (ICD-10-PCS; 2018-12-03)
PROC: B548ZZA Ultrasonography of Superior Vena Cava, Guidance (ICD-10-PCS; 2018-12-03)
PROC: 4A023N6 Measurement of Cardiac Sampling and Pressure, Right Heart, Percutaneous Approach (ICD-10-PCS; principal; 2018-12-04)
PROC: B206YZZ Plain Radiography of Right and Left Heart using Other Contrast (ICD-10-PCS; 2018-12-04)
DX: I11.0 Hypertensive heart disease with heart failure (principal); L89.613 Pressure ulcer of right heel, stage 3; I21.4 Non-ST elevation (NSTEMI) myocardial infarction; I50.21 Acute systolic (congestive) heart failure; L03.119 Cellulitis of unspecified part of limb; I48.91 Unspecified atrial fibrillation; E11.51 Type 2 diabetes mellitus with diabetic peripheral angiopathy without gangrene; E11.621 Type 2 diabetes mellitus with foot ulcer; I25.10 Atherosclerotic heart disease of native coronary artery without angina pectoris; I42.9 Cardiomyopathy, unspecified; I35.0 Nonrheumatic aortic (valve) stenosis; J44.9 Chronic obstructive pulmonary disease, unspecified; L89.892 Pressure ulcer of other site, stage 2; L89.620 Pressure ulcer of left heel, unstageable; E11.65 Type 2 diabetes mellitus with hyperglycemia; D64.9 Anemia, unspecified